=== PATIENT | male | born 1980 | race American Indian/Alaskan Native ===

== ENCOUNTER 2017-08-19 10:22 | Inpatient (IN) | payer OTHER ==
[2017-08-19 10:22] VITALS: BMI 30.2
--- NOTE | 2017-08-19 10:52 | C.PDOC ---
History Of Present Illness 37 year old male presents to the emergency department status-post leaving against medical advice from [facility] on 08-13-17 with complaints of persistent nausea, vomiting, and shortness of breath. Patient states his vomiting is independent of eating, and experienced his last episode three days ago, but is still currently experiencing nausea. Patient states his shortness of breath feels like he "can't take a full breath in", and that it has persisted with tightness for the past month. He denies chest pain, dyspnea on exertion, or coughing but confirms smoking. Patient reports experiencing RUQ/ Epigastric pain in the past but states it is "better than before". Patient denies fever, diarrhea. Patient was previously advised regarding an outpatient follow-up for a possible gallbladder removal, which he states he has not done yet. CO PERSIST NV, SOB "LIKE I CAN'T TAKE A FULL BREATH IN". S/P AMA FROM [facility] . PS NV INDEPENDENT OF EATING, LAST EPISODE 3 DAYS AGO. CO MILD NAUSEA NOW. PREV W RUQ/EPIG PAIN "BUT THAT'S BETTER THAN BEFORE". NO FEVER, DIARRHEA. PSH NEG. PS HAS NOT SCHEDULED OUTPT FU YET. ALSO CO SOB, TIGHTNESS X 1 MO. NO ASSOC CP, MARISCAL, COUGH. +SMOKING. pmhx of ETOH use disorder, tobacco use disorder CT of abdomen and pelvis showed findings that are suspicious for cholecystitis. Pt's LFT were mildly elevated, MRCP was done which showed cholecytitis but no gallstone or bile duct pathology. HIDA scan (preliminary findings) was negative for cholecystitis. EXAM MILD DIST NONTOXIC HEENT NEG LUNGS CTA B/L NO W/R/R NO RETRACTIONS SPEAKING FULL SENTENCES NO TACHYPNEA CV ABD NEG SKIN WARM DRY REMAINDER NEG Time Seen by Provider: 08/19/17 10:51 Chief Complaint (Nursing): GI Problem History Per: Patient History/Exam Limitations: no limitations Onset/Duration Of Symptoms: Days (6) Current Symptoms Are (Timing): Still Present Reports Recently: Seen In ED ([facility] 08-13-17) Past Medical History Reviewed: Historical Data, Nursing Documentation, Vital Signs Vital Signs: Last Vital Signs Temp 97.6 F 08/19/17 15:52 Pulse 97 H 08/19/17 15:52 Resp 18 08/19/17 17:09 BP 127/99 H 08/19/17 15:52 Pulse Ox 100 08/19/17 17:09 - Medical History PMH: Gall Bladder Disease Denies: Chronic Kidney Disease Surgical History: No Surg Hx Family History: States: No Known Family Hx - Social History Hx Alcohol Use: Yes Hx Substance Use: No Review Of Systems Except As Marked, All Systems Reviewed And Found Negative. Constitutional: Negative for: Fever Cardiovascular: Negative for: Chest Pain, Other (dyspnea on exertion) Respiratory: Positive for: Shortness of Breath, Other (chest tightness). Negative for: Cough Gastrointestinal: Positive for: Nausea, Vomiting. Negative for: Diarrhea Physical Exam - Physical Exam Appears: Non-toxic, In Acute Distress (mild) Skin: Warm, Dry Head: Atraumatic, Normacephalic Eye(s): bilateral: Normal Inspection Ear(s): Bilateral: Normal Oral Mucosa: Moist Tongue: Normal Appearing Throat: Normal, No Erythema, No Exudate Neck: Supple Chest: Symmetrical Cardiovascular: Rhythm Regular Respiratory: Normal Breath Sounds (clear to auscultation bilaterally), No Rales , No Rhonchi, No Wheezing, Other (No retraction, no tachypnea, ) Gastrointestinal/Abdominal: Normal Exam, Soft, No Tenderness, No Guarding, No Rebound Extremity: No Pedal Edema Neurological/Psych: Oriented x3, Normal Speech, Normal Cognition, Other (no focal deficits) ED Course And Treatment - Laboratory Results Result Diagrams: 08/19/17 11:30 08/19/17 11:30 ECG Rhythm: Sinus Tachycardia (104), ST/T Changes (T-wave inversion in 5 and 6.) ECG Interpretation: No Changes From Prior (08-11-17) O2 Sat by Pulse Oximetry: 98 Pulse Ox Interpretation: Normal - Radiology CXR: Interpreted by Nv CXR Interpretation: Yes: No Acute Disease, Other ([facility] CXR UNAVAIL FOR REVIEW) - CT Scan/US US Abdomen Other Rad Studies (CT/US): Read By Radiologist, Radiology Report Reviewed CT/US Interpretation: HISTORY: abd pain. COMPARISON: None. TECHNIQUE: Sonographic evaluation of the right upper quadrant of the abdomen. FINDINGS: LIVER: Measures 16.1 cm in length. Patent portal vein. Portal venous flow: Hepatopetal. Unremarkable echogenicity of the liver parenchyma. No mass. No intrahepatic bile duct dilatation. GALLBLADDER: Gallbladder wall thickening. Maximum thickness 9.3 mm. No pericholecystic fluid identified. No visible gallstones or evidence of sonographic Montana's sign. COMMON BILE DUCT: Measures 3.3 mm. No stones. No dilatation. PANCREAS: Unremarkable as visualized. No mass. No ductal dilatation. RIGHT KIDNEY: Measures 4.1 x 10.8 cm in length. Normal echogenicity. No calculus, mass, or hydronephrosis. AORTA : No aneurysmal dilatation. IVC: Unremarkable. OTHER FINDINGS: None . IMPRESSION: Gallbladder wall thickening. Otherwise unremarkable gallbladder without evidence of acute cholecystitis. Progress Note: Plan: EKG. CMP. Lipase. CBC. D-Dimer. CXR Two Views. Albuterl 2.5mg INH. Zofran Inj 8mg IVP. Nebulizer Treatment. US Abdomen Limited Progress - Re-Evaluation Re-evaluation Note: 08/19/17 11:09 PF 550 08/19/17 14:16 NARD APPEARS COMFORTABLE. VSS. CT REPORT REVIEWED. PENDING BNP. PT ADVISED NEED FOR SENIOR CARE PMD FU, SMOKING CESSATION. 08/19/17 15:05 EXAM UNCH PRIOR. PERSIST SX, NO PRIOR HO CHF. WILL ADMIT D/W DR Padmini SANDOVAL WILL ADMIT. REQUESTING UDS - Data Reviewed Data Reviewed: Lab, Diagnostic imaging, EKG, Old records Medical Decision Making Medical Decision Making: Chart from [facility]: pmhx of ETOH use disorder, tobacco use disorder CT of abdomen and pelvis showed findings that are suspicious for cholecystitis. Pt's LFT were mildly elevated, MRCP was done which showed cholecytitis but no gallstone or bile duct pathology. HIDA scan (preliminary findings) was negative for cholecystitis. Disposition Counseled Patient/Family Regarding: Studies Performed, Diagnosis - Disposition Disposition: HOSPITALIZED Disposition Time: 15:07 Condition: STABLE - POA Present On Arrival: None - Clinical Impression Clinical Impression: New onset of congestive heart failure, Biliary colic - Scribe Statement The provider has reviewed the documentation as recorded by the Scribe (M[facility]) Provider Attestation: All medical record entries made by the Scribe were at my direction and personally dictated by me. I have reviewed the chart and agree that the record accurately reflects my personal performance of the history, physical exam, medical decision making, and the department course for this patient. I have also personally directed, reviewed, and agree with the discharge instructions and disposition. Decision To Admit - Pt Status Changed To: Hospital Disposition Of: Inpatient - Admit Certification Admit to Inpatient:: After my assessment, the patient will require hospitalization for at least two midnights. This is because of the severity of symptoms shown, intensity of services needed, and/or the medical risk in this patient being treated as an outpatient. - InPatient: Physician Admission Certification: I certify that this patient requires 2 or more midnights of care for the following reason:: SEE NOTE - . Bed Request Type: Telemetry Admitting Physician: Akil Sandoval Patient Diagnosis: New onset of congestive heart failure, Biliary colic
[2017-08-19] MEDS ORDERED: Albuterol 0.083% Inhal Sol (2.5 mg/3 mL) UD INH STA (11:04)
[2017-08-19] MEDS ORDERED: Albuterol 0.083% Inhal Sol (2.5 mg/3 mL) UD ONE (11:22)
[2017-08-19 11:48] LABS: BASO # 0.1 K/uL (0.0-0.2); BASO % 0.9 % (0.0-2.0); EOS % 0.5 % (0.0-4.0); HEMOGLOBIN 13.8 g/dL (12.0-18.0); LYMPH # 2.3 K/uL (1.0-4.3); LYMPH % 24.9 % (20.0-40.0); MEAN CELL VOLUME 86.4 fL (80.0-94.0); MEAN CORPUSCULAR HEMOGLOBIN 28.7 pg (27.0-31.0); MEAN CORPUSCULAR HGB CONC 33.2 g/dL (33.0-37.0); MEAN PLATELET VOLUME 8.2 fL (7.2-11.7); MONO # 0.6 K/uL (0.0-0.8); MONO % 6.5 % (0.0-10.0); NEUT # 6.2 K/uL (1.8-7.0); NEUT % 67.2 % (50.0-75.0); NRBC % 0.1 % (0.0-2.0); RBC 4.8 Mil/uL (4.40-5.90); RED CELL DISTRIBUTION WIDTH 14.9 % (11.5-14.5); WHITE BLOOD COUNT 9.2 K/uL (4.8-10.8)
[2017-08-19 11:57] LABS: ALB/GLOB RATIO 1.2 (1.0-2.1); ALBUMIN 3.3 g/dL (3.5-5.0); ALT/SGPT 71 U/L (21-72); AST/SGOT 33 U/L (17-59); BLOOD UREA NITROGEN 13 mg/dL (9-20); CALCIUM 8.8 mg/dl (8.6-10.4); GFR AFRICAN-AMERICAN > 60; GFR NON-AFRICAN AMERICAN > 60; LIPASE 62 U/L (23-300)
--- NOTE | 2017-08-19 13:03 | RAD ---
HISTORY: Abdominal pain. COMPARISON: No prior. TECHNIQUE: Chest PA and lateral FINDINGS: LUNGS: No active pulmonary disease. PLEURA: No significant pleural effusion identified. No pneumothorax apparent. CARDIOVASCULAR: Cardiomegaly, pulmonary vascular plethora. OSSEOUS STRUCTURES: No significant abnormalities. VISUALIZED UPPER ABDOMEN: Normal. No free air identified under the diaphragms. OTHER FINDINGS: None. IMPRESSION: No active pulmonary disease. No visible free air.
--- NOTE | 2017-08-19 13:05 | US ---
HISTORY: abd pain COMPARISON: None. TECHNIQUE: Sonographic evaluation of the right upper quadrant of the abdomen. FINDINGS: LIVER: Measures 16.1 cm in length. Patent portal vein. Portal venous flow: Hepatopetal. Unremarkable echogenicity of the liver parenchyma. No mass. No intrahepatic bile duct dilatation. GALLBLADDER: Gallbladder wall thickening. Maximum thickness 9.3 mm. No pericholecystic fluid identified. No visible gallstones or evidence of sonographic Montana's sign. COMMON BILE DUCT: Measures 3.3 mm. No stones. No dilatation. PANCREAS: Unremarkable as visualized. No mass. No ductal dilatation. RIGHT KIDNEY: Measures 4.1 x 10.8 cm in length. Normal echogenicity. No calculus, mass, or hydronephrosis. AORTA: No aneurysmal dilatation. IVC: Unremarkable. OTHER FINDINGS: None . IMPRESSION: Gallbladder wall thickening. Otherwise unremarkable gallbladder without evidence of acute cholecystitis.
[2017-08-19] MEDS ORDERED: Iodixanol 320 MG/ML 100 ML BOTTLE IV ONE (13:08)
--- NOTE | 2017-08-19 14:08 | CT ---
PROCEDURE: CT Chest with contrast (Pulmonary Angiogram) HISTORY: SOB r/o PE COMPARISON: None available. TECHNIQUE: Axial computed tomography images were obtained of the chest in the pulmonary arterial phase of enhancement. Coronal and sagittal reformatted images were created and reviewed. Intravenous contrast dose: 100 mL Visipaque 320 Radiation dose: Total exam DLP = 533.95 mGy-cm. This CT exam was performed using one or more of the following dose reduction techniques: Automated exposure control, adjustment of the mA and/or kV according to patient size, and/or use of iterative reconstruction technique. FINDINGS: PULMONARY ARTERIES: Unremarkable. No pulmonary embolism. AORTA: No acute findings. No thoracic aortic aneurysm. LUNGS: Partial atelectasis of the right lower lobe due to pleural effusion. There is 5 millimeter nodule at the upper portion of the right lung lower lobe. Posterior dependent atelectasis are noted. Focal bronchiectasis noted in the visualized portion of the right lung lower lobe. Mild pulmonary vascular congestion. PLEURAL SPACES: There is moderate size right pleural effusion. There is a small left pleural effusion. HEART: The heart is mildly enlarged. LYMPH NODES: Mildly enlarged mediastinal lymph nodes are noted. BONES, CHEST WALL: Unremarkable. No fracture or destructive lesion OTHER FINDINGS: The scan through the upper abdomen demonstrate pericholecystic fluid. Otherwise no evidence of acute pathology. IMPRESSION: No evidence of pulmonary embolus. Moderate right and small left pleural effusions. Cardiomegaly. 5 millimeter noncalcified nodule at the right lung lower lobe. [id number] pulmonary vascular congestion. Pericholecystic fluid noted incidentally.
--- NOTE | 2017-08-19 15:44 | CP.PCM.HP ---
<Anne-Marie Saunders - Last Filed: 08/19/17 19:27> History of Present Illness - History of Present Illness History of Present Illness: H&P for Dr Sandoval's service: CC: Shortness of breath x 1 month HPI: Patient is a 37 year old male, with PMHx of ETOH abuse, smoker, with recent admission (left AMA) at [facility] presents for shortness of breath. He states this has progressed over the last month so that now he can't even walk a block without having to stop and rest. The patient states he is barely able to sleep and is not able to lie flat or he will become short of breath. He states he feels like he is wheezing and has chest tightness for this past month. He denies leg edema. Patient denies fever/chills, headache, changes in vision, palpitations, diaphoresis. Patient does admit to on and off RUQ pain which causes him to vomit when it starts. Per EMR notes at [place] - MRCP was done which showed cholecytitis but no gallstone or bile duct pathology. HIDA scan ( preliminary findings) was negative for cholecystitis. Patient was to follow up outpatient for cholecystectomy but did not follow up. PMH: Tobacco abuse disorder, ETOH abuse disorder, Cholelithiasis, heart murmur PSHx: None Allergies: NKDA Meds: None FHx: Father (, [place] - age 47), mother alive with HTN, has 4 children no medical problems SHX: Smoker for 22 years (started at age 15) x 1 PPD. Cutting down to 5 cigarettes/day recently last time he smoked was 2 weeks ago; ETOH (drinks 3-4 beers 2 x a week and usually washes it down with 2 shots of vodka, per past EMR was drinking daily, marijuana use when was a teen. 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 absent: Pedal Edema, Syncope - Respiratory Respiratory: Dyspnea, Dyspnea on Exertion. absent: Cough - Gastrointestinal Gastrointestinal: absent: Abdominal Pain, Constipation, Diarrhea, Nausea, Vomiting - Genitourinary Genitourinary: absent: Change in Urinary Stream, Difficulty Urinating - Neurological Neurological: absent: Headaches, Tingling, Weakness Past Patient History - Past Medical History & Family History Past Medical History?: No - Past Social History Smoking Status: Heavy Smoker > 10 Cigarettes Daily - CARDIAC Hx Cardiac Disorders: No - PULMONARY Hx Respiratory Disorders: No - NEUROLOGICAL Hx Neurological Disorder: No - HEENT Hx HEENT Problems: No - RENAL Hx Chronic Kidney Disease: No - ENDOCRINE/METABOLIC Hx Endocrine Disorders: No - HEMATOLOGICAL/ONCOLOGICAL Hx Blood Disorders: No - INTEGUMENTARY Hx Dermatological Problems: No - MUSCULOSKELETAL/RHEUMATOLOGICAL Hx Musculoskeletal Disorders: No - GASTROINTESTINAL Hx Gall Bladder Disease: Yes - GENITOURINARY/GYNECOLOGICAL Hx Genitourinary Disorders: No - PSYCHIATRIC Hx Substance Use: No - SURGICAL HISTORY Hx Surgeries: No - ANESTHESIA Hx Anesthesia: No Meds Allergies/Adverse Reactions: Allergies Allergy/AdvReac Type Severity Reaction Status Date / Time No Known Allergies Allergy Verified 03/12/16 08:14 Physical Exam - Constitutional Appears: Non-toxic, No Acute Distress - Head Exam Head Exam: ATRAUMATIC, NORMAL INSPECTION - Eye Exam Eye Exam: EOMI, PERRL Pupil Exam: NORMAL ACCOMODATION - ENT Exam ENT Exam: Mucous Membranes Moist - Neck Exam Additional comments: no JVD - Respiratory Exam Respiratory Exam: Rales, NORMAL BREATHING PATTERN. absent: Accessory Muscle Use , Respiratory Distress Additional comments: b/l at bases more on R side - Cardiovascular Exam Cardiovascular Exam: REGULAR RHYTHM, +S1, +S2 Additional comments: split S2 - GI/Abdominal Exam GI & Abdominal Exam: Normal Bowel Sounds, Soft. absent: Distended, Firm, Guarding, Tenderness - Rectal Exam Rectal Exam: absent: Bloody Stool, Hemorrhoids Additional comments: normal tone. mild erythema to anal region. no masses or lesions. - Extremities Exam Extremities exam: Positive for: normal inspection. Negative for: calf tenderness, pedal edema - Back Exam Back exam: NORMAL INSPECTION. absent: CVA tenderness (L), CVA tenderness (R), paraspinal tenderness - Neurological Exam Neurological exam: Alert, CN II-XII Intact, Normal Gait, Oriented x3 Additional comments: All muscle groups 5/5 - Psychiatric Exam Psychiatric exam: Normal Affect, Normal Mood - Skin Skin Exam: Dry, Intact, Normal Color, Warm Results - Vital Signs Recent Vital Signs: Last Vital Signs Temp 98.5 F 08/19/17 15:00 Pulse 101 H 08/19/17 15:00 Resp 20 08/19/17 15:00 BP 127/84 08/19/17 15:00 Pulse Ox 98 08/19/17 15:08 - Labs Result Diagrams: 08/19/17 11:30 08/19/17 11:30 Labs: Laboratory Results - last 24 hr 08/19/17 08/19/17 08/19/17 11:30 11:30 11:30 WBC 9.2 RBC 4.80 Hgb 13.8 Hct 41.5 MCV 86.4 MCH 28.7 MCHC 33.2 RDW 14.9 H Plt Count 292 MPV 8.2 Neut % (Auto) 67.2 Lymph % (Auto) 24.9 Grady % (Auto) 6.5 Eos % (Auto) 0.5 Baso % (Auto) 0.9 Neut # (Auto) 6.2 Lymph # (Auto) 2.3 Grady # (Auto) 0.6 Eos # (Auto) 0.0 Baso # (Auto) 0.1 D-Dimer, Quantitative 275 H Sodium 139 Potassium 3.8 Chloride 109 H Carbon Dioxide 22 Anion Gap 13 BUN 13 Creatinine 1.0 Est GFR ( Amer) > 60 Est GFR (Non-Af Amer) > 60 Random Glucose 98 Calcium 8.8 Total Bilirubin 0.6 AST 33 ALT 71 Alkaline Phosphatase 46 NT-Pro-B Natriuret Pep Total Protein 6.0 L Albumin 3.3 L Globulin 2.7 Albumin/Globulin Ratio 1.2 Lipase 62 08/19/17 14:16 WBC RBC Hgb Hct MCV MCH MCHC RDW Plt Count MPV Neut % (Auto) Lymph % (Auto) Grady % (Auto) Eos % (Auto) Baso % (Auto) Neut # (Auto) Lymph # (Auto) Grady # (Auto) Eos # (Auto) Baso # (Auto) D-Dimer, Quantitative Sodium Potassium Chloride Carbon Dioxide Anion Gap BUN Creatinine Est GFR ( Amer) Est GFR (Non-Af Amer) Random Glucose Calcium Total Bilirubin AST ALT Alkaline Phosphatase NT-Pro-B Natriuret Pep 3120 H Total Protein Albumin Globulin Albumin/Globulin Ratio Lipase Assessment & Plan - Assessment and Plan (Free Text) Plan: CHF exacerbation, new onset, unsure if with or without preserved EEF Admit to tele Troponin negative x 1; f/u 2 repeat 6qh with EKG EKG: Left axis deviation, NSR at 100 bpm, with mild T wave inversions BNP 3120 Cardiology consulted, Dr Espinal - help appreciated f/u echo Lasix 20mg IV BID Lisionpril 10mg PO daily Will start BBlock after acute exacerbation Strict Input and Output, daily weights, head of bed to 45 degrees f/u TSH, T4, Lipid panel, HbA1c, am labs Elevated Ddimer only slightly elevated could be secondary to HF Chest CT negative for PE Hx Biliary Colic No murphys on exam, hx gallstones LFTS normal Pt to follow up with [facility] for outpatient elective cholecystectomy Diarrhea/anal irritation f/u stool studies patient to dab rectal area with wet toilet paper and let dry, do not rub the area 5mm RLL nodule risk factors: current smoker will need repeat Chest CT in 3-6 months to follow up for changes, to be done outpatient Nicotine use Nicoderm patch 14mg Q24 hours Alchohol use f/u blood alcohol level Folic acid, multivitamin, thiamine PO daily Ativan 2mg IV Q6 hour prn agitation/withdrawal Prophylactic Measures SCDS (risk factor 1) No GI indicated Heart healthy, 2gram sodium diet <Akil Sandoval - Last Filed: 08/19/17 21:48> Results - Vital Signs Recent Vital Signs: Last Vital Signs Temp 97.6 F 08/19/17 15:52 Pulse 97 H 08/19/17 15:52 Resp 18 08/19/17 17:09 BP 127/99 H 08/19/17 15:52 Pulse Ox 98 08/19/17 18:47 - Labs Result Diagrams: 08/19/17 11:30 08/19/17 11:30 Labs: Laboratory Results - last 24 hr 08/19/17 08/19/17 08/19/17 11:30 11:30 11:30 WBC 9.2 RBC 4.80 Hgb 13.8 Hct 41.5 MCV 86.4 MCH 28.7 MCHC 33.2 RDW 14.9 H Plt Count 292 MPV 8.2 Neut % (Auto) 67.2 Lymph % (Auto) 24.9 Grady % (Auto) 6.5 Eos % (Auto) 0.5 Baso % (Auto) 0.9 Neut # (Auto) 6.2 Lymph # (Auto) 2.3 Grady # (Auto) 0.6 Eos # (Auto) 0.0 Baso # (Auto) 0.1 D-Dimer, Quantitative 275 H Sodium 139 Potassium 3.8 Chloride 109 H Carbon Dioxide 22 Anion Gap 13 BUN 13 Creatinine 1.0 Est GFR ( Amer) > 60 Est GFR (Non-Af Amer) > 60 Random Glucose 98 Calcium 8.8 Total Bilirubin 0.6 AST 33 ALT 71 Alkaline Phosphatase 46 Troponin I NT-Pro-B Natriuret Pep Total Protein 6.0 L Albumin 3.3 L Globulin 2.7 Albumin/Globulin Ratio 1.2 Lipase 62 Urine Opiates Screen Urine Methadone Screen Ur Barbiturates Screen Ur Phencyclidine Scrn Ur Amphetamines Screen U Benzodiazepines Scrn U Oth Cocaine Metabols U Cannabinoids Screen Alcohol, Quantitative 08/19/17 08/19/17 08/19/17 14:16 16:46 16:46 WBC RBC Hgb Hct MCV MCH MCHC RDW Plt Count MPV Neut % (Auto) Lymph % (Auto) Grady % (Auto) Eos % (Auto) Baso % (Auto) Neut # (Auto) Lymph # (Auto) Grady # (Auto) Eos # (Auto) Baso # (Auto) D-Dimer, Quantitative Sodium Potassium Chloride Carbon Dioxide Anion Gap BUN Creatinine Est GFR ( Amer) Est GFR (Non-Af Amer) Random Glucose Calcium Total Bilirubin AST ALT Alkaline Phosphatase Troponin I 0.1060 NT-Pro-B Natriuret Pep 3120 H Total Protein Albumin Globulin Albumin/Globulin Ratio Lipase Urine Opiates Screen Negative Urine Methadone Screen Negative Ur Barbiturates Screen Negative Ur Phencyclidine Scrn Negative Ur Amphetamines Screen Negative U Benzodiazepines Scrn Negative U Oth Cocaine Metabols Negative U Cannabinoids Screen Negative Alcohol, Quantitative < 10 Attending/Attestation - Attestation I have personally seen and examined this patient.: Yes I have fully participated in the care of the patient.: Yes I have reviewed all pertinent clinical information: Yes Notes (Text): 08/19/17 21:47 Patient was seen and examined shortly after resident. History, Physical, Exam, Assessment and Plan were gone over with the resident. Akil Sandoval D.O.
[2017-08-19 17:07] LABS: BARBITURATES, UR NEGATIVE (NEGATIVE); BENZODIAZEPINES, UR NEGATIVE (NEGATIVE); OPIATES, UR NEGATIVE (NEGATIVE); PHENCYCLIDINE, UR NEGATIVE (NEGATIVE)
[2017-08-20 06:28] LABS: BASO # 0.1 K/uL (0.0-0.2); BASO % 0.9 % (0.0-2.0); EOS # 0.1 K/uL (0.0-0.7); EOS % 0.6 % (0.0-4.0); HEMOGLOBIN 14.2 g/dL (12.0-18.0); LYMPH # 2.3 K/uL (1.0-4.3); LYMPH % 27.5 % (20.0-40.0); MEAN CELL VOLUME 86.1 fL (80.0-94.0); MEAN CORPUSCULAR HEMOGLOBIN 28.6 pg (27.0-31.0); MEAN CORPUSCULAR HGB CONC 33.2 g/dL (33.0-37.0); MEAN PLATELET VOLUME 8.8 fL (7.2-11.7); MONO # 0.6 K/uL (0.0-0.8); MONO % 7.1 % (0.0-10.0); NEUT # 5.4 K/uL (1.8-7.0); NEUT % 63.9 % (50.0-75.0); RBC 4.97 Mil/uL (4.40-5.90); RED CELL DISTRIBUTION WIDTH 14.8 % (11.5-14.5); WHITE BLOOD COUNT 8.5 K/uL (4.8-10.8)
[2017-08-20 06:44] LABS: ALB/GLOB RATIO 1.3 (1.0-2.1); ALBUMIN 3.6 g/dL (3.5-5.0); ALT/SGPT 56 U/L (21-72); AST/SGOT 27 U/L (17-59); BLOOD UREA NITROGEN 14 mg/dL (9-20); GFR AFRICAN-AMERICAN > 60; GFR NON-AFRICAN AMERICAN > 60; HDL CHOLESTEROL 29 mg/dL (30-70)
[2017-08-20 06:52] LABS: CK-MB 1.22 ng/mL (0.0-3.38)
[2017-08-20 06:53] LABS: LDL CHOLESTEROL 143 mg/dL (0-129)
[2017-08-20] MEDS ORDERED: Hydrocortisone 2.5% Rectal Cream(30 gm) PR PRN (09:59)
[2017-08-20] MEDS: Multiple Vitamins Tab PO SCH (10:12)
--- NOTE | 2017-08-20 12:00 | CARD ---
APPROVED REPORT EKG Measurement Heart [id number] <Conclusion> Normal sinus rhythm Right atrial enlargement T wave abnormality, consider inferolateral ischemia Prolonged QT Abnormal ECG
--- NOTE | 2017-08-20 12:08 | CARD ---
APPROVED REPORT EKG Measurement Heart [id number] MI [id number] <Conclusion> Sinus tachycardia Left atrial enlargement Nonspecific T wave abnormality Abnormal ECG
--- NOTE | 2017-08-20 12:23 | CARD ---
APPROVED REPORT EXAM: Two-dimensional and M-mode echocardiogram with Doppler and color Doppler. Other Information Quality : GoodRhythm : INDICATION Congestive Heart Failure RISK FACTORS Hypertension 2D DIMENSIONS IVSd1.3 (0.7-1.1cm)LVDd6.1 (3.9-5.9cm) PWd1.0 (0.7-1.1cm)LVDs5.9 (2.5-4.0cm) FS (%) 4.3 %LVEF (%)9.5 (>50%) M-Mode DIMENSIONS Left Atrium (MM)3.75 (2.5-4.0cm)IVSd1.16 (0.7-1.1cm) Aortic Root3.30 (2.2-3.7cm)LVDd6.38 (4.0-5.6cm) Aortic Cusp Exc.2.21 (1.5-2.0cm)PWd1.05 (0.7-1.1cm) FS (%) 6 %LVDs6.01 (2.0-3.8cm) LVEF (%)13 (>50%) Mitral Valve MV E Ltwlqjif19.6cm/sMV A Cbzjxeae97.6cm/sE/A ratio1.9 TDI E/Lateral E'0.0E/Medial E'0.0 Tricuspid Valve TR Peak [id number]/sTR Peak Gr.[id number] LEFT VENTRICLE The Left Ventricle is moderately dilated. There is normal left ventricular wall thickness. Left ventricle systolic function is severely impaired. The Ejection Fraction is <15%. There is global hypokinesis of the left ventricle. Transmitral Doppler flow pattern is Grade II-pseudonormal filling dynamics. No left ventricle thrombus noted on this study. LV filling pressure is elevated There is no ventricular septal defect visualized. There is no left ventricular aneurysm. There is no mass noted in the left ventricle. RIGHT VENTRICLE The right ventricle is normal size. There is normal right ventricular wall thickness. The right ventricular systolic function is normal. ATRIA The left atrium size and volume is moderately dilated. The right atrium size is normal. The interatrial septum is intact with no evidence for an atrial septal defect. AORTIC VALVE The aortic valve is normal in structure and function. No aortic regurgitation is present. There is no aortic valvular stenosis. There is no aortic valvular vegetation. MITRAL VALVE The mitral valve is normal in structure and function. There is no evidence of mitral valve prolapse. There is no mitral valve stenosis. Mitral regurgitation is mild. TRICUSPID VALVE The tricuspid valve is normal in structure and function. There is mild to moderate tricuspid regurgitation. Right ventricular systolic pressure is estimated at 40-50 mmHg. There is no tricuspid valve prolapse or vegetation. There is no tricuspid valve stenosis. PULMONIC VALVE The pulmonary valve is normal in structure and function. There is no pulmonic valvular regurgitation. There is no pulmonic valvular stenosis. GREAT VESSELS The aortic root is normal in size. The ascending aorta is normal in size. The pulmonary artery is normal. The IVC is normal in size and collapses >50% with inspiration. PERICARDIAL EFFUSION The pericardium appears normal. There is no pleural effusion. <Conclusion> The Left Ventricle is moderately dilated. The left ventricular diastolic function is normal. No left ventricle thrombus noted on this study. LV filling pressure is elevated The left atrium size and volume is moderately dilated. Mitral regurgitation is mild. There is mild to moderate tricuspid regurgitation. Right ventricular systolic pressure is estimated at 40-50 mmHg.
--- NOTE | 2017-08-20 18:04 | CP.PCM.PN ---
<Lorena Gallegos - Last Filed: 08/20/17 17:53> Subjective - Date & Time of Evaluation Date of Evaluation: 08/20/17 Time of Evaluation: 09:00 - Subjective Subjective: Medicine Note for Hospitalist Service- Dr. Arreguin Patient was seen and examined at bedside. Patient reports his breathing has improved, but he continues to feel short of breath when he lays down flat. Denied fever, chills, headaches, chest pain, shortness of breath, abdominal pain , n/v/d/c, or urinary symptoms. Objective - Vital Signs/Intake and Output Vital Signs (last 24 hours): Temp Pulse Resp BP Pulse Ox 98.2 F 83 20 100/70 96 08/20/17 15:51 08/20/17 15:51 08/20/17 15:51 08/20/17 17:36 08/20/17 15:51 Intake and Output: 08/20/17 08/20/17 06:59 18:59 Intake Total 360 350 Output Total 850 Balance -490 350 - Medications Medications: Current Medications Aspirin (Aspirin Chewable) 81 mg PO DAILY [facility] Last Admin: 08/20/17 16:00 Dose: 81 mg Folic Acid (Folic Acid) 1 mg PO DAILY [facility] Last Admin: 08/20/17 10:12 Dose: 1 mg Furosemide (Lasix) 20 mg IVP BID [facility] Last Admin: 08/20/17 17:36 Dose: Not Given Hydrocortisone (Anusol-Hc) 1 gm NC BID PRN PRN Reason: Inflammation Lisinopril (Zestril) 20 mg PO DAILY [facility] Last Admin: 08/20/17 10:12 Dose: 20 mg Multivitamins (Hexavitamin) 1 tab PO DAILY [facility] Last Admin: 08/20/17 10:12 Dose: 1 tab Nicotine (Nicoderm Cq) 1 patch TD DAILY [facility] Last Admin: 08/20/17 10:12 Dose: 1 patch Rosuvastatin Calcium (Crestor) 5 mg PO [facility] Thiamine HCl (Vitamin B1 Tab) 100 mg PO DAILY [facility] Last Admin: 08/20/17 10:12 Dose: 100 mg - Labs Labs: 08/20/17 06:20 08/20/17 06:20 - Additional Findings Additional findings: - Constitutional Appears: Non-toxic, No Acute Distress - Head Exam Head Exam: ATRAUMATIC, NORMAL INSPECTION - Eye Exam Eye Exam: EOMI, PERRL Pupil Exam: NORMAL ACCOMODATION - ENT Exam ENT Exam: Mucous Membranes Moist - Neck Exam Additional comments: no JVD - Respiratory Exam Respiratory Exam: NORMAL BREATHING PATTERN. absent: Accessory Muscle Use, Respiratory Distress, rhonci, rales Additional comments: - Cardiovascular Exam Cardiovascular Exam: REGULAR RHYTHM, +S1, +S2 Additional comments: split S2 - GI/Abdominal Exam GI & Abdominal Exam: Normal Bowel Sounds, Soft. absent: Distended, Firm, Guarding, Tenderness - Rectal Exam Rectal Exam: Deferred Additional comments: - Extremities Exam Extremities exam: Positive for: normal inspection. Negative for: calf tenderness, pedal edema - Back Exam Back exam: NORMAL INSPECTION. 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 - Cardiology consulted, Dr Espinal - patient is for [facility] - pending medical optimization to determine if AICD is necessary - Troponin negative x 3 - EKG: Left axis deviation, NSR at 100 bpm, with mild T wave inversions - BNP 3120 - D- Dimer - elevated, CTA negative for PE - ECHO: LVEF 15-20%, LV systolic dysfunction severely impaired, global hypokinesis Management: - ASA 81, Crestor 5mg QHS - Lasix 20mg IV BID - Lisinopril 20mg PO daily - Will start BBlock after acute exacerbation - Strict Input and Output, daily weights, head of bed to 45 degrees - TSH, T4, HbA1c - WNL - Lipid panel - low HDL - will need OTC Melissa 3 and fish oil Alcohol use - Folic acid, multivitamin, thiamine PO daily - Ativan 2mg IV Q6 hour prn agitation/withdrawal - blood alcohol level < 10 Nicotine use - Nicoderm patch 14mg Q24 hours 5mm RLL nodule - risk factors: current smoker - will need repeat Chest CT in 3-6 months to follow up for changes, to be done outpatient Hx Biliary Colic - No murphys on exam, hx gallstones - LFTS normal - Pt to follow up with [facility] for outpatient elective cholecystectomy Diarrhea/anal irritation - patient to dab rectal area with wet toilet paper and let dry, do not rub the area - f/u stool studies Prophylactic Measures - SCDS (risk factor 1) - No GI indicated - Heart healthy, 2gram sodium diet Disposition: Pending [facility] arrival as patient as LVEF 15-20%. DW Dr. Dr. Arreguin, Lorena Gallegos DO, PGY-1 <Amy Arreguin V - Last Filed: 08/21/17 07:23> Objective - Vital Signs/Intake and Output Vital Signs (last 24 hours): Temp Pulse Resp BP Pulse Ox 97.7 F 92 H 20 120/89 98 08/20/17 23:00 08/20/17 23:00 08/20/17 23:00 08/20/17 23:00 08/20/17 23:00 Intake and Output: 08/21/17 08/21/17 06:59 18:59 Intake Total 240 Balance 240 - Medications Medications: Current Medications Aspirin (Aspirin Chewable) 81 mg PO DAILY [facility] Last Admin: 08/20/17 16:00 Dose: 81 mg Folic Acid (Folic Acid) 1 mg PO DAILY [facility] Last Admin: 08/20/17 10:12 Dose: 1 mg Furosemide (Lasix) 20 mg IVP BID [facility] Last Admin: 08/20/17 17:36 Dose: Not Given Hydrocortisone (Anusol-Hc) 1 gm NC BID PRN PRN Reason: Inflammation Lisinopril (Zestril) 20 mg PO DAILY [facility] Last Admin: 08/20/17 10:12 Dose: 20 mg Multivitamins (Hexavitamin) 1 tab PO DAILY [facility] Last Admin: 08/20/17 10:12 Dose: 1 tab Nicotine (Nicoderm Cq) 1 patch TD DAILY [facility] Last Admin: 08/20/17 10:12 Dose: 1 patch Rosuvastatin Calcium (Crestor) 5 mg PO HS [facility] Last Admin: 08/20/17 22:02 Dose: 5 mg Thiamine HCl (Vitamin B1 Tab) 100 mg PO DAILY [facility] Last Admin: 08/20/17 10:12 Dose: 100 mg - Labs Labs: 08/21/17 06:26 08/21/17 06:26 Attending/Attestation - Attestation I have personally seen and examined this patient.: Yes I have fully participated in the care of the patient.: Yes I have reviewed all pertinent clinical information, including history, physical exam and plan: Yes Notes (Text): This is late computer entry for 08/20/17. Patient seen, examined and case discussed with medical i d sales, cardiology, and patient with mother present at bedside. Patient with family hx of ME (father) comes in following 1 month history of dyspnea on exertion. Patient's echocardiogram reveals he had dilated cardiomyopathy with severe ejection fraction 15%. At this time, cardiology is not recommending for stress test given severe ejection fraction. Per our discussion, patient does not have decompensated CHF, recommends to start low dose diuretic, beta samir, aspirin and statin and see with medical optimization to allow the Ejection fraction to improve. He is also recommending for [facility] for the patient. [employer]oll paper work completed and in the chart. We had a long collective discussion with the patient with cardiology, we urged him to be compliant with medications, his lifevest, and patient is willing to do it following our conversation. Patient understands he is at risk for ME or life threatening arrhthymia. Patient is concerned about his job; however I also reminded him his health is as important as his job. We also had quite discussion about alcohol cessation; smoking cessation. Patient at this time does not have abdominal pain, but recommended for outpatient elective kulwinder. patient will likely need cardiology clearance prior to that surgery, Assessment/Plan 1) New onset, combined Diastolic and Systolic CHF Exacerbation, LVEF <15-20% Dilated Cardiomyopathy * Cardiology consulted, Dr Espinal - patient is for [facility] - pending medical optimization to determine if AICD is necessary * Troponin negative x 3 * EKG: Left axis deviation, NSR at 100 bpm, with mild T wave inversions * BNP 3120 * D- Dimer - elevated, CTA negative for PE * ECHO: LVEF 15-20%, LV systolic dysfunction severely impaired, global hypokinesis Management: * ASA 81 mg PO daily, Crestor 5mg QHS * Lasix 20mg IV BID * Lisinopril 20mg PO daily * Start low dose Coreg 3.125mg PO bid (hold SBP<100 and HR<60) * Strict Input and Output, daily weights, head of bed to 45 degrees * TSH, T4, HbA1c - WNL * Lipid panel - low HDL - will need OTC Melissa 3 and fish oil 2) Alcohol use * Folic acid, multivitamin, thiamine PO daily * Ativan 2mg IV Q6 hour prn agitation/withdrawal * blood alcohol level < 10 3) Nicotine use * Nicoderm patch 14mg Q24 hours * Smoking cessation provided 4) 5 mm RLL nodule * risk factors: current smoker * will need repeat Chest CT in 3-6 months to follow up for changes, to be done outpatient 5) Hx Biliary Colic * No murphys on exam, hx gallstones * LFTS normal * Pt to follow up with [facility] for outpatient elective cholecystectomy and will need cardiac clearance prior to surgery in light of cardiomyopathy 6) Diarrhea/anal irritation * patient to dab rectal area with wet toilet paper and let dry, do not rub the area * f/u stool studies 7) Prophylactic Measures * SCDS (risk factor 1) * No GI indicated * Heart healthy, 2gram sodium diet Disposition: Pending [facility] arrival as patient as LVEF 15-20%.
--- NOTE | 2017-08-21 05:56 | CON ---
DATE: 08/20/2017 CARDIOLOGY CONSULT Requested by the hospitalist group. LOCATION: In [address] [place] [address], room 650 bed A. REASON FOR REQUEST: Requested to see this 37 years old black male due to systolic and diastolic heart failure. HISTORY OF PRESENT ILLNESS: This gentleman came to the emergency room due to increasing shortness of breath for about a month or so. He was immediately evaluated in the emergency room. He was treated and advised admission for further evaluation and treatment. Since arrival here, he has had multiple investigations highlighted by electrocardiogram showing sinus rhythm, left ventricular type of pattern, LVH pattern and biatrial enlargement. A chest x-ray with cardiomegaly and some pulmonary congestion; however, no pleural effusion; but most important an echocardiogram showing a severe left ventricular systolic as well as diastolic dysfunction. Mild pulmonary hypertension but no evidence of any regional wall motion abnormalities. This appeared to be just a dilated type of cardiomyopathy with some underlying hypertension. This nice gentleman actually drinks a significant amount of alcohol in the form of beer. He claims he only drinks about 6 beers a day or so, would presume a lot more. Mother was at the bedside when I came to see him and she admitted that he probably drinks a lot more, but takes no or does any illicit drugs. He just smokes regular cigarettes. He denies any known allergies and this is the first hospitalization although he goes to a clinic, he mentioned a clinic in [place], he was there about a week ago, I asked him if at anytime he has had any hypertension, he categorically told me that no and he gets checked twice a year, at least what he told me. REVIEW OF SYSTEMS: From the cardiological view point, as mentioned above, there is exertional dyspnea [place] Class III at least. Denying any chest discomfort, palpitation or syncope in any given time and no evidence of edema in the past either. Rest of the review of systems otherwise negative. PHYSICAL EXAMINATION: GENERAL: Reveals an adult black male, very pleasant although I have to wake him up several times, the mother at the bedside and finally he began to cooperate very well, in no distress whatsoever. VITAL SIGNS: On arrival has being relatively well compensated, he is afebrile, blood pressure about 122/93, the lowest one around 92/62 when he was sleeping, heart rate in the 80s and sinus, on arrival here was about 95 or so. SKIN: There is no edema that I can see anywhere. NECK : Jugular veins are nondistended and even below 30 degrees. Carotids with normal upstroke without bruit. LUNG: Cobian clear during my exam. CARDIOLOGIC: The precordium is unremarkable, no thrills on auscultation. The PMI appears to be slightly displaced but nothing spectacular. Heart sounds are normal in intensity and regular with minimal systolic murmur on the left sternal border. ABDOMEN: Unremarkable. No localized tenderness. CUSTOMER STRATEGY MANAGER: Unremarkable. LABORATORY DATA: Complementary data in addition to what I mentioned above from the cardiological view point, CBCs normal. Comprehensive metabolic profile is also normal. Serial troponins unremarkable, proBNP mildly elevated about 3100. Urine for toxicology all negative except alcohol. Thyroid is also normal. ASSESSMENT: In essence, an adult that has been drinking excessive amount of alcohol for many years has come in with evidence of severe systolic and diastolic dysfunction. PLAN: The case was extensively discussed with Dr. Arreguin and her resident and earlier in the day when I reviewed the echo after I spoke with Anne-Marie, the resident taking care of him, I called the field marketing representative from [facility] and he came immediately and we are proceeding with that in the interim. Dr. Arreguin had an extensive conversation with the patient and mother and he appears to agree at this point in time, although earlier this morning, he was reluctant to follow any of the plans for his medical care, but now he agrees to proceed with diet and above all, refrain from any alcohol as well as tobacco use. He has been already started on DONNA inhibitor, diuretics, intravenous furosemide and we are proceeding with adding beta blockers with carvedilol as well as spironolactone. Monty Espinal MD
[2017-08-21 06:30] LABS: BASO # 0.1 K/uL (0.0-0.2); BASO % 0.6 % (0.0-2.0); EOS # 0.1 K/uL (0.0-0.7); EOS % 0.7 % (0.0-4.0); HEMOGLOBIN 13.9 g/dL (12.0-18.0); LYMPH # 2.1 K/uL (1.0-4.3); LYMPH % 24.3 % (20.0-40.0); MEAN CELL VOLUME 86.2 fL (80.0-94.0); MEAN CORPUSCULAR HEMOGLOBIN 28.2 pg (27.0-31.0); MEAN CORPUSCULAR HGB CONC 32.7 g/dL (33.0-37.0); MEAN PLATELET VOLUME 8.5 fL (7.2-11.7); MONO # 0.5 K/uL (0.0-0.8); MONO % 6.3 % (0.0-10.0); NEUT # 5.8 K/uL (1.8-7.0); NEUT % 68.1 % (50.0-75.0); RBC 4.93 Mil/uL (4.40-5.90); RED CELL DISTRIBUTION WIDTH 14.5 % (11.5-14.5); WHITE BLOOD COUNT 8.6 K/uL (4.8-10.8)
[2017-08-21 06:51] LABS: ALB/GLOB RATIO 1.3 (1.0-2.1); ALBUMIN 3.6 g/dL (3.5-5.0); ALT/SGPT 47 U/L (21-72); AST/SGOT 20 U/L (17-59); BLOOD UREA NITROGEN 15 mg/dL (9-20); CALCIUM 8.9 mg/dl (8.6-10.4); GFR AFRICAN-AMERICAN > 60; GFR NON-AFRICAN AMERICAN > 60
[2017-08-21] MEDS: Multiple Vitamins Tab PO SCH (09:10)
--- NOTE | 2017-08-21 11:11 | CP.PCM.DIS ---
<KeenanLorena santo - Last Filed: 08/21/17 12:59> Provider - Provider Date of Admission: 08/19/17 15:08 Attending physician: Amy Arreguin DO Consults: Dr. Monty Espinal Time Spent in preparation of Discharge (in minutes): 55 Hospital Course - Lab Results Lab Results: Most Recent Lab Values WBC 8.6 K/uL (4.8-10.8) 08/21/17 06:26 RBC 4.93 Mil/uL (4.40-5.90) 08/21/17 06:26 Hgb 13.9 g/dL (12.0-18.0) 08/21/17 06:26 Hct 42.5 % (35.0-51.0) 08/21/17 06:26 MCV 86.2 fL (80.0-94.0) 08/21/17 06:26 MCH 28.2 pg (27.0-31.0) 08/21/17 06:26 MCHC 32.7 g/dL (33.0-37.0) L 08/21/17 06:26 RDW 14.5 % (11.5-14.5) 08/21/17 06:26 Plt Count 301 K/uL (130-400) 08/21/17 06:26 MPV 8.5 fL (7.2-11.7) 08/21/17 06:26 Neut % (Auto) 68.1 % (50.0-75.0) 08/21/17 06:26 Lymph % (Auto) 24.3 % (20.0-40.0) 08/21/17 06:26 [place] % (Auto) 6.3 % (0.0-10.0) 08/21/17 06:26 Eos % (Auto) 0.7 % (0.0-4.0) 08/21/17 06:26 Baso % (Auto) 0.6 % (0.0-2.0) 08/21/17 06:26 Neut # (Auto) 5.8 K/uL (1.8-7.0) 08/21/17 06:26 Lymph # (Auto) 2.1 K/uL (1.0-4.3) 08/21/17 06:26 [place] # (Auto) 0.5 K/uL (0.0-0.8) 08/21/17 06:26 Eos # (Auto) 0.1 K/uL (0.0-0.7) 08/21/17 06:26 Baso # (Auto) 0.1 K/uL (0.0-0.2) 08/21/17 06:26 D-Dimer, Quantitative 275 ng/mlDDU (0-243) H 08/19/17 11:30 Sodium 141 mmol/L (132-148) 08/21/17 06:26 Potassium 3.9 mmol/L (3.6-5.2) 08/21/17 06:26 Chloride 109 mmol/L (98-107) H 08/21/17 06:26 Carbon Dioxide 26 mmol/L (22-30) 08/21/17 06:26 Anion Gap 10 (10-20) 08/21/17 06:26 BUN 15 mg/dL (9-20) 08/21/17 06:26 Creatinine 1.2 mg/dL (0.8-1.5) 08/21/17 06:26 Est GFR ( Amer) > 60 08/21/17 06:26 Est GFR (Non-Af Amer) > 60 08/21/17 06:26 Random Glucose 82 mg/dL (75-110) 08/21/17 06:26 Hemoglobin A1c 5.6 % (4.2-6.5) 08/20/17 06:20 Calcium 8.9 mg/dl (8.6-10.4) 08/21/17 06:26 Phosphorus 3.9 mg/dL (2.5-4.5) 08/21/17 06:26 Magnesium 2.0 mg/dL (1.6-2.3) 08/21/17 06:26 Total Bilirubin 0.7 mg/dL (0.2-1.3) 08/21/17 06:26 AST 20 U/L (17-59) 08/21/17 06:26 ALT 47 U/L (21-72) 08/21/17 06:26 Alkaline Phosphatase 45 U/L (38-126) 08/21/17 06:26 Total Creatine Kinase 92 U/L (55-170) 08/20/17 06:20 CK-MB (Mass) 1.22 ng/mL (0.0-3.38) 08/20/17 06:20 Troponin I 0.0770 ng/mL (0.00-0.120) 08/20/17 06:20 NT-Pro-B Natriuret Pep 3120 pg/mL (0-450) H 08/19/17 14:16 Total Protein 6.4 g/dL (6.3-8.3) 08/21/17 06:26 Albumin 3.6 g/dL (3.5-5.0) 08/21/17 06:26 Globulin 2.7 gm/dL (2.2-3.9) 08/21/17 06:26 Albumin/Globulin Ratio 1.3 (1.0-2.1) 08/21/17 06:26 Triglycerides 103 mg/dL (0-149) 08/20/17 06:20 Cholesterol 182 mg/dL (0-199) 08/20/17 06:20 LDL Cholesterol Direct 143 mg/dL (0-129) H 08/20/17 06:20 HDL Cholesterol 29 mg/dL (30-70) L 08/20/17 06:20 Lipase 62 U/L (23-300) 08/19/17 11:30 Free T4 1.24 ng/dL (0.78-2.19) 08/20/17 06:20 TSH 3rd Generation 0.49 mIU/L (0.46-4.68) 08/20/17 06:20 Urine Opiates Screen Negative (NEGATIVE) 08/19/17 16:46 Urine Methadone Screen Negative (NEGATIVE) 08/19/17 16:46 Ur Barbiturates Screen Negative (NEGATIVE) 08/19/17 16:46 Ur Phencyclidine Scrn Negative (NEGATIVE) 08/19/17 16:46 Ur Amphetamines Screen Negative (NEGATIVE) 08/19/17 16:46 U Benzodiazepines Scrn Negative (NEGATIVE) 08/19/17 16:46 U Oth Cocaine Metabols Negative (NEGATIVE) 08/19/17 16:46 U Cannabinoids Screen Negative (NEGATIVE) 08/19/17 16:46 Alcohol, Quantitative < 10 mg/dl (0-10) 08/19/17 16:46 - Hospital Course Hospital Course: Upon Admission: CC: Shortness of breath x 1 month HPI: Patient is a 37 year old male, with PMHx of ETOH abuse, smoker, with recent admission (left AMA) at [facility] presents for shortness of breath. He states this has progressed over the last month so that now he can't even walk a block without having to stop and rest. The patient states he is barely able to sleep and is not able to lie flat or he will become short of breath. He states he feels like he is wheezing and has chest tightness for this past month. He denies leg edema. Patient denies fever/chills, headache, changes in vision, palpitations, diaphoresis. Patient does admit to on and off RUQ pain which causes him to vomit when it starts. Per EMR notes at [place] - MRCP was done which showed cholecytitis but no gallstone or bile duct pathology. HIDA scan ( preliminary findings) was negative for cholecystitis. Patient was to follow up outpatient for cholecystectomy but did not follow up. PMH: Tobacco abuse disorder, ETOH abuse disorder, Cholelithiasis, heart murmur PSHx: None Allergies: NKDA Meds: None FHx: Father (, [place] - age 47), mother alive with HTN, has 4 children no medical problems SHX: Smoker for 22 years (started at age 15) x 1 PPD. Cutting down to 5 cigarettes/day recently last time he smoked was 2 weeks ago; ETOH (drinks 3-4 beers 2 x a week and usually washes it down with 2 shots of vodka, per past EMR was drinking daily, marijuana use when was a teen. 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 Code status: Full code AD: none Proxy: Mother: Nataliia Love PMD: none Throughout Hospital Admission: New onset, combined Diastolic and Systolic CHF Exacerbation, LVEF <15-20% Dilated Cardiomyopathy Likely 2/2 ETOH Use - Cardiology consulted, Dr Espinal - patient is for [employer] - pending medical optimization to determine if AICD is necessary - Troponin negative x 3 - EKG: Left axis deviation, NSR at 100 bpm, with mild T wave inversions - BNP 3120 - D- Dimer - elevated, CTA negative for PE - ECHO: LVEF 15-20%, LV systolic dysfunction severely impaired, global hypokinesis Management: - ASA 81, Crestor 5mg QHS - Lasix 20mg IV BID - Lisinopril 20mg PO daily - Start low dose Coreg 3.125mg PO bid (hold SBP<100 and HR<60) - Strict Input and Output, daily weights, head of bed to 45 degrees - TSH, T4, HbA1c - WNL - Lipid panel - low HDL - will need OTC Madison 3 and fish oil Alcohol use - Folic acid, multivitamin, thiamine PO daily - Ativan 2mg IV Q6 hour prn agitation/withdrawal - blood alcohol level < 10 Nicotine use - Nicoderm patch 14mg Q24 hours 5mm RLL nodule - risk factors: current smoker - will need repeat Chest CT in 3-6 months to follow up for changes, to be done outpatient Hx Biliary Colic - No murphys on exam, hx gallstones - LFTS normal - Pt to follow up with [facility] for outpatient elective cholecystectomy Please review EMR for full record, as this is a brief summary of the patient's hospital course. Discharge Exam - Additional Findings Additional findings: - Constitutional Appears: Non-toxic, No Acute Distress - Head Exam Head Exam: ATRAUMATIC, NORMAL INSPECTION - Eye Exam Eye Exam: EOMI, PERRL Pupil Exam: NORMAL ACCOMODATION - ENT Exam ENT Exam: Mucous Membranes Moist - Neck Exam Additional comments: no JVD - Respiratory Exam Respiratory Exam: NORMAL BREATHING PATTERN. absent: Accessory Muscle Use, Respiratory Distress, rhonci, rales Additional comments: - Cardiovascular Exam Cardiovascular Exam: REGULAR RHYTHM, +S1, +S2 Additional comments: split S2 - GI/Abdominal Exam GI & Abdominal Exam: Normal Bowel Sounds, Soft. absent: Distended, Firm, Guarding, Tenderness - Rectal Exam Rectal Exam: Deferred Additional comments: - Extremities Exam Extremities exam: Positive for: normal inspection. Negative for: calf tenderness, pedal edema - Back Exam Back exam: NORMAL INSPECTION. absent: CVA tenderness (L), CVA tenderness (R), paraspinal tenderness - Neurological Exam Neurological exam: Alert, CN II-XII Intact, Normal Gait, Oriented x3 Additional comments: All muscle groups 5/5 - Psychiatric Exam Psychiatric exam: Normal Affect, Normal Mood - Skin Skin Exam: Dry, Intact, Normal Color, Warm Discharge Plan - Discharge Medications Prescriptions: Aspirin [Aspirin Chewable] 81 mg PO DAILY #30 chew Carvedilol [Coreg] 3.125 mg PO BID #60 tab Furosemide [Lasix] 20 mg PO DAILY #30 tab Lisinopril [Zestril] 20 mg PO DAILY #30 tab Rosuvastatin Calcium [Crestor] 5 mg PO QPM #30 tab Spironolactone [Aldactone] 25 mg PO DAILY #30 tab - Follow Up Plan Condition: STABLE Disposition: HOME/ ROUTINE Instructions: Heart Failure, Adult, Heart Healthy Diet, Medicines for Heart Failure With Reduced Ejection Fraction, When Your Lungs Fill With Fluid, Aspirin , Atorvastatin, Carvedilol, Lisinopril, Medical Devices for Congestive Heart Failure (CHF), Spironolactone, Heart Failure Exercise Guide, Heart Failure (DC) Additional Instructions: You were diagnosed with Heart Failure with an ejection fraction of about 15-20% (this means your heart is very, very weak). You will need to continue with the medications EVERY DAY and wear the life vest as instructed by the life vest sales representative malt liquors EVERYDAY until you are seen by a revenue analyst and told otherwise. You will need to restrict your diet to NO SALT and less than 1.5 liters of FLUIDS per day to prevent fluid from backing up into your lungs and lower extremities. You will need to exercise and lose weight. You will be taking the following medications EVERYDAY: Aspirin 81mg by mouth daily Lisinopril 20mg by mouth daily Coreg 3.125mg by mouth TWICE a day Crestor 5 mg by mouth at night with dinner Lasix 20mg by mouth daily (this will make you pee a lot but it is to help remove the extra fluid to prevent it from going to your lungs) Aldactone 25mg by mouth daily (this will make you pee a lot but it is to help remove the extra fluid to prevent it from going to your lungs; this medication has been shown to help reduce the number of deaths due to heart failure). Please buy over the counter Madison 3 and fish oil to help raise your good cholesterol (HDL) which is very low right now. Since you do not have a primary care doctor, come to our [facility] in the [facility] - you can establish yourself here and we can follow up with you, give you refills for your medications, and so you can follow up with Dr. Espinal the Construction Accountant who saw you here in the hospital. For work, for the first month or so please do not lift heavy objects or do any work that is too energy consuming. You need to allow some time for the medications to work and allow your heart to get stronger. If your abdominal pain continues to happen, once your heart is in a better condition and you are cleared for surgery, you can arrange for surgery as outpatient. You have a 5mm nodule in the lower part of your right lung. We will need to repeat a cat scan of your chest in 3-6 months to make sure it is not changing in size. Please take care and be well. You can do this; take you medication everyday, wear your lifevest everyday, quit drinking alcohol and smoking, remove salt from your diet and do not drink more than 1.5 liters of liquids / day, exercise and lose weight! Referrals: [facility] [Outside] Monty Espinal MD [Staff Provider] - <Amy Arreguin V - Last Filed: 08/21/17 17:35> Provider - Provider Date of Admission: 08/19/17 15:08 Attending physician: Amy Arreguin, DO Hospital Course - Lab Results Lab Results: Most Recent Lab Values WBC 8.6 K/uL (4.8-10.8) 08/21/17 06:26 RBC 4.93 Mil/uL (4.40-5.90) 08/21/17 06:26 Hgb 13.9 g/dL (12.0-18.0) 08/21/17 06:26 Hct 42.5 % (35.0-51.0) 08/21/17 06:26 MCV 86.2 fL (80.0-94.0) 08/21/17 06:26 MCH 28.2 pg (27.0-31.0) 08/21/17 06:26 MCHC 32.7 g/dL (33.0-37.0) L 08/21/17 06:26 RDW 14.5 % (11.5-14.5) 08/21/17 06:26 Plt Count 301 K/uL (130-400) 08/21/17 06:26 MPV 8.5 fL (7.2-11.7) 08/21/17 06:26 Neut % (Auto) 68.1 % (50.0-75.0) 08/21/17 06:26 Lymph % (Auto) 24.3 % (20.0-40.0) 08/21/17 06:26 [place] % (Auto) 6.3 % (0.0-10.0) 08/21/17 06:26 Eos % (Auto) 0.7 % (0.0-4.0) 08/21/17 06:26 Baso % (Auto) 0.6 % (0.0-2.0) 08/21/17 06:26 Neut # (Auto) 5.8 K/uL (1.8-7.0) 08/21/17 06:26 Lymph # (Auto) 2.1 K/uL (1.0-4.3) 08/21/17 06:26 [place] # (Auto) 0.5 K/uL (0.0-0.8) 08/21/17 06:26 Eos # (Auto) 0.1 K/uL (0.0-0.7) 08/21/17 06:26 Baso # (Auto) 0.1 K/uL (0.0-0.2) 08/21/17 06:26 D-Dimer, Quantitative 275 ng/mlDDU (0-243) H 08/19/17 11:30 Sodium 141 mmol/L (132-148) 08/21/17 06:26 Potassium 3.9 mmol/L (3.6-5.2) 08/21/17 06:26 Chloride 109 mmol/L (98-107) H 08/21/17 06:26 Carbon Dioxide 26 mmol/L (22-30) 08/21/17 06:26 Anion Gap 10 (10-20) 08/21/17 06:26 BUN 15 mg/dL (9-20) 08/21/17 06:26 Creatinine 1.2 mg/dL (0.8-1.5) 08/21/17 06:26 Est GFR ( Amer) > 60 08/21/17 06:26 Est GFR (Non-Af Amer) > 60 08/21/17 06:26 Random Glucose 82 mg/dL (75-110) 08/21/17 06:26 Hemoglobin A1c 5.6 % (4.2-6.5) 08/20/17 06:20 Calcium 8.9 mg/dl (8.6-10.4) 08/21/17 06:26 Phosphorus 3.9 mg/dL (2.5-4.5) 08/21/17 06:26 Magnesium 2.0 mg/dL (1.6-2.3) 08/21/17 06:26 Total Bilirubin 0.7 mg/dL (0.2-1.3) 08/21/17 06:26 AST 20 U/L (17-59) 08/21/17 06:26 ALT 47 U/L (21-72) 08/21/17 06:26 Alkaline Phosphatase 45 U/L (38-126) 08/21/17 06:26 Total Creatine Kinase 92 U/L (55-170) 08/20/17 06:20 CK-MB (Mass) 1.22 ng/mL (0.0-3.38) 08/20/17 06:20 Troponin I 0.0770 ng/mL (0.00-0.120) 08/20/17 06:20 NT-Pro-B Natriuret Pep 3120 pg/mL (0-450) H 08/19/17 14:16 Total Protein 6.4 g/dL (6.3-8.3) 08/21/17 06:26 Albumin 3.6 g/dL (3.5-5.0) 08/21/17 06:26 Globulin 2.7 gm/dL (2.2-3.9) 08/21/17 06:26 Albumin/Globulin Ratio 1.3 (1.0-2.1) 08/21/17 06:26 Triglycerides 103 mg/dL (0-149) 08/20/17 06:20 Cholesterol 182 mg/dL (0-199) 08/20/17 06:20 LDL Cholesterol Direct 143 mg/dL (0-129) H 08/20/17 06:20 HDL Cholesterol 29 mg/dL (30-70) L 08/20/17 06:20 Lipase 62 U/L (23-300) 08/19/17 11:30 Free T4 1.24 ng/dL (0.78-2.19) 08/20/17 06:20 TSH 3rd Generation 0.49 mIU/L (0.46-4.68) 08/20/17 06:20 Stool Leukocytes, Qual Negative (NEGATIVE) 05/22/18 05:57 Urine Opiates Screen Negative (NEGATIVE) 08/19/17 16:46 Urine Methadone Screen Negative (NEGATIVE) 08/19/17 16:46 Ur Barbiturates Screen Negative (NEGATIVE) 08/19/17 16:46 Ur Phencyclidine Scrn Negative (NEGATIVE) 08/19/17 16:46 Ur Amphetamines Screen Negative (NEGATIVE) 08/19/17 16:46 U Benzodiazepines Scrn Negative (NEGATIVE) 08/19/17 16:46 U Oth Cocaine Metabols Negative (NEGATIVE) 08/19/17 16:46 U Cannabinoids Screen Negative (NEGATIVE) 08/19/17 16:46 Alcohol, Quantitative < 10 mg/dl (0-10) 08/19/17 16:46 Attending/Attestation - Attestation I have personally seen and examined this patient.: Yes I have fully participated in the care of the patient.: Yes I have reviewed all pertinent clinical information, including history, physical exam and plan: Yes Notes (Text): Patient seen, examined, and case discussed with day-time resident. Patient seen this morning. Patient seen this morning. Patient is amenable to medical management and reports will comply with medications. Patient was seen and fitted by [employer] sales representative malt liquors today. Patient is medically stable for discharge. Patient recommended to establish care with primary care doctor and cardiology. Alcohol cessation provided. Medications (month supply) * Aspirin [Aspirin Chewable] 81 mg PO DAILY #30 chew * Carvedilol [Coreg] 3.125 mg PO BID #60 tab * Furosemide [Lasix] 20 mg PO DAILY #30 tab * Lisinopril [Zestril] 20 mg PO DAILY #30 tab * Rosuvastatin Calcium [Crestor] 5 mg PO QPM #30 tab * Spironolactone [Aldactone] 25 mg PO DAILY #30 tab Patient will need to establish care or follow-up with [facility] for refills. Patient recommended to follow-up cardiology and establish care. Patient recommended to obtain cardiology to follow-up ejection fraction to see if improved. Patient also given information for [facility] in [place] as well as [place]. This is summary for patient's hospitalization. Please see EMR for further details. Updated in my note below: Discharge Diagnoses: 1) New onset, combined Diastolic and Systolic CHF Exacerbation, LVEF <15-20% Dilated Cardiomyopathy * Cardiology consulted, Dr Espinal - patient is for [employer] -was fitted prior to discharge today * Will need f/u with cardiology to monitor ejection fraction following compliance with medical management * Troponin negative x 3 * EKG: Left axis deviation, NSR at 100 bpm, with mild T wave inversions * BNP 3120 * D- Dimer - elevated, CTA negative for PE * ECHO: LVEF 15-20%, LV systolic dysfunction severely impaired, global hypokinesis Management: * ASA 81 mg PO daily, Crestor 5mg QHS * Lasix 20mg PO daily * Lisinopril 20mg PO daily * Coreg 3.125mg PO bid (hold SBP<100 and HR<60) * Aldactone 25mg PO daily * Strict Input and Output, daily weights, head of bed to 45 degrees * TSH, T4, HbA1c - WNL * Lipid panel - low HDL - will need OTC Madison 3 and fish oil 2) Alcohol use * Folic acid, multivitamin, thiamine PO daily * Ativan 2mg IV Q6 hour prn agitation/withdrawal * blood alcohol level < 10 * encourage alcohol cessation provided 3) Nicotine use * Nicoderm patch 14mg Q24 hours * Smoking cessation provided 4) 5 mm RLL nodule * risk factors: current smoker * will need repeat Chest CT in 3-6 months to follow up for changes, to be done outpatient 5) Hx Biliary Colic-->not symptomatic * No murphys on exam, hx gallstones * LFTS normal * Pt to follow up with [facility] for outpatient elective cholecystectomy and will need cardiac clearance prior to surgery in light of cardiomyopathy 6) Diarrhea/anal irritation-->resolved * patient to dab rectal area with wet toilet paper and let dry, do not rub the area * f/u stool studies 7) Prophylactic Measures * SCDS (risk factor 1) * No GI indicated * Heart healthy, 2gram sodium diet
[2017-08-21 16:03] VITALS: RESP 20; O2SAT 96
[2017-08-21 16:33] VITALS: BP 98/63; PULSE 98; TEMP 97.8
--- NOTE | 2017-08-21 17:09 | PCM.HF ---
Heart Failure Core Measure - Heart Failure Ejection Fraction: Less Than 40 % DONNA Inhibitor Prescribed: Yes Beta-Bradley Prescribed: Carvedilol Angiotensin II Receptor Bradley Prescribed: No Contraindication/Reason for not providing: on donna AnticoagulationTherapy for Atrial Fibrillation/Atrialflutter: No Contraindication/Reason for not providing: no hx of chf Aldosterone Antagonist Prescribed: Yes Hydralazine Nitrate Prescribed: No Contraindication/Reason for not providing: bp running low Implantable Cardioverter Defibrillator Therapy: No Contraindication/Reason for not providing: on vest trail Cardiac Resynchronization Therapy Prescribed: No Contraindication/Reason for not providing: NSR/ on vest trail - Follow up Will be discharged to: Home Follow Up Date (must be within 7 days from discharge): 08/27/17 Follow Up Time: 09:00
== END 2017-08-21 17:00 | disposition home or self-care (01) | DRG 127 ==
LOC: C.ER 10:22 → C.9E 15:08 → C.6T 15:41
PROVIDERS: ADMIT Family Medicine; ATTEND Hospitalist
PROC: HZ2ZZZZ Detoxification Services for Substance Abuse Treatment (ICD-10-PCS; principal; 2017-08-19)
DX: I50.43 Acute on chronic combined systolic (congestive) and diastolic (congestive) heart failure (principal); F10.230 Alcohol dependence with withdrawal, uncomplicated; I42.6 Alcoholic cardiomyopathy; I27.20 Pulmonary hypertension, unspecified; F17.210 Nicotine dependence, cigarettes, uncomplicated; Y90.0 Blood alcohol level of less than 20 mg/100 ml; R91.1 Solitary pulmonary nodule; R19.7 Diarrhea, unspecified

== ENCOUNTER 2017-11-10 18:42 | Inpatient (IN) | payer OTHER ==
[2017-11-10 18:43] VITALS: BMI 30.2
--- NOTE | 2017-11-10 19:19 | C.PDOC ---
History Of Present Illness 37 year old male presents to the ED complaining of palpitations and shortness of breath. Associated symptoms include tiredness and generalized weakness. Patient reports symptoms have been worsening since 3 days ago. He states he was recently diagnosed with CHF in July. Patient notes he has not been taking his medications over the past week. Denies fever, chills, nausea, vomiting, or cough. Time Seen by Provider: 11/10/17 19:18 Chief Complaint (Nursing): Shortness Of Breath History Per: Patient History/Exam Limitations: no limitations Onset/Duration Of Symptoms: Days Current Symptoms Are (Timing): Still Present Initiating Event: Other Quality: Dull Exacerbating Factor(s): Exertion, Laying Flat, Coughing Current Respiratory Medications: See Home Med List Severity: Moderate Pain Scale Rating Of: 5 Associated Symptoms: denies: Fever, Chills, Sweating Reports Recently: Seen In ED, Treated By A Physician, Hospitalized Recent travel outside of the [place]: No Additional History Per: Patient Past Medical History Reviewed: Historical Data, Nursing Documentation, Vital Signs Vital Signs: Last Vital Signs Temp 98.6 F 11/10/17 18:44 Pulse 133 H 11/10/17 18:44 Resp 20 11/10/17 19:30 BP 136/100 H 11/10/17 18:44 Pulse Ox 96 11/10/17 21:03 - Medical History PMH: CHF, Gall Bladder Disease Denies: Chronic Kidney Disease Surgical History: No Surg Hx - [facility] DETOXIFICATION SERVICES FOR SUBSTANCE ABUSE TREATMENT (08/19/17) Family History: States: No Known Family Hx - Social History Hx Alcohol Use: Yes Hx Substance Use: No Review Of Systems Constitutional: Negative for: Fever, Chills Eyes: Negative for: Vision Change ENT: Negative for: Throat Pain Cardiovascular: Positive for: Palpitations Respiratory: Positive for: Shortness of Breath. Negative for: Cough Gastrointestinal: Negative for: Nausea, Vomiting Genitourinary: Negative for: Dysuria Musculoskeletal: Negative for: Back Pain Skin: Negative for: Rash Neurological: Negative for: Weakness Psych: Negative for: Anxiety Physical Exam - Physical Exam Appears: Non-toxic, No Acute Distress Skin: Warm, Dry Head: Normacephalic Eye(s): bilateral: Normal Inspection Oral Mucosa: Moist Neck: Trachea Midline, Supple Chest: Symmetrical Cardiovascular: Rhythm Regular, Other (Tachycardic on exam ) Respiratory: Rales (Rales at the bases ), No Rhonchi, No Wheezing, Other ( Speaking incomplete sentences ) Gastrointestinal/Abdominal: Soft, No Tenderness, No Distention Back: No CVA Tenderness Extremity: No Pedal Edema Extremity: Bilateral: Atraumatic, Normal Color And Temperature, Normal ROM Pulses: Left Dorsalis Pedis: Normal, Right Dorsalis Pedis: Normal Neurological/Psych: Oriented x3, Normal Speech Gait: Steady ED Course And Treatment - Laboratory Results Result Diagrams: 11/10/17 20:07 11/10/17 20:07 ECG: Interpreted By Me, Viewed By Me ECG Rhythm: Sinus Tachycardia (126), ST/T Changes (lat ischemic changes), Nonspecific Changes O2 Sat by Pulse Oximetry: 96 (RA) Pulse Ox Interpretation: Normal - Radiology CXR Interpretation: Yes: Cardiomegaly, Other (chf). No: Infiltrates, Fracture Medical Decision Making Medical Decision Making: Impression: shortness of breath Orders: - EKG - Lab work - Blood work - UA Disposition Discussed With DrHarry: Surjit Gomez Comment: accepted the pt on his service and took over the care at 9:16 PM Doctor Will See Patient In The: ED Counseled Patient/Family Regarding: Studies Performed, Diagnosis - Disposition Disposition: HOSPITALIZED Disposition Time: 19:18 Condition: FAIR Forms: [facility] (Hebrew) - Clinical Impression Clinical Impression: Dyspnea, CHF (congestive heart failure) - Scribe Statement The provider has reviewed the documentation as recorded by the Scribe Jenny Cronin All medical record entries made by the Scribe were at my direction and personally dictated by me. I have reviewed the chart and agree that the record accurately reflects my personal performance of the history, physical exam, medical decision making, and the department course for this patient. I have also personally directed, reviewed, and agree with the discharge instructions and disposition. Decision To Admit - Pt Status Changed To: Hospital Disposition Of: Inpatient - Admit Certification Admit to Inpatient:: After my assessment, the patient will require hospitalization for at least two midnights. This is because of the severity of symptoms shown, intensity of services needed, and/or the medical risk in this patient being treated as an outpatient. - InPatient: Physician Admission Certification: I certify that this patient requires 2 or more midnights of care for the following reason:: After my assessment, the patient will require hospitalization for at least two midnights. This is because of the severity of symptoms shown, intensity of services needed, and/or the medical risk in this patient being treated as an outpatient. - . Bed Request Type: Telemetry Admitting Physician: Surjit Gomez Patient Diagnosis: Dyspnea, CHF (congestive heart failure)
[2017-11-10 20:09] LABS: BASO # 0.1 K/uL (0.0-0.2); BASO % 0.6 % (0.0-2.0); EOS % 0.2 % (0.0-4.0); HEMOGLOBIN 13.3 g/dL (12.0-18.0); LYMPH # 2.8 K/uL (1.0-4.3); LYMPH % 26.3 % (20.0-40.0); MEAN CELL VOLUME 82.9 fL (80.0-94.0); MEAN CORPUSCULAR HEMOGLOBIN 27.1 pg (27.0-31.0); MEAN CORPUSCULAR HGB CONC 32.7 g/dL (33.0-37.0); MEAN PLATELET VOLUME 7.4 fL (7.2-11.7); MONO # 0.6 K/uL (0.0-0.8); MONO % 6.1 % (0.0-10.0); NEUT % 66.8 % (50.0-75.0); NRBC % 0.2 % (0.0-2.0); RBC 4.89 Mil/uL (4.40-5.90); RED CELL DISTRIBUTION WIDTH 15.7 % (11.5-14.5); WHITE BLOOD COUNT 10.5 K/uL (4.8-10.8)
[2017-11-10 20:13] LABS: VENOUS BLOOD GAS PCO2 26 mmHg (40-60); VENOUS BLOOD GAS PO2 56 mm/Hg (30-55); VENOUS BLOOD PH 7.38 (7.32-7.43)
[2017-11-10 20:22] LABS: ALB/GLOB RATIO 1.4 (1.0-2.1); ALBUMIN 4.2 g/dL (3.5-5.0); ALT/SGPT 35 U/L (21-72); AST/SGOT 23 U/L (17-59); BLOOD UREA NITROGEN 17 mg/dL (9-20); CALCIUM 9.4 mg/dl (8.6-10.4); GFR AFRICAN-AMERICAN > 60; GFR NON-AFRICAN AMERICAN > 60
[2017-11-10 20:30] LABS: D DIMER < 200 ng/mlDDU (0-243); INR 1.4; PARTIAL THROMBOPLASTIN TIME 34 SECONDS (21-34); PROTHROMBIN TIME 15.8 SECONDS (9.7-12.2)
[2017-11-10 20:34] LABS: B-TYPE NATRIURETIC PEPTIDE 4050 pg/mL (0-450)
[2017-11-10 22:43] LABS: SQUAMOUS EPITHIAL < 1 /hpf (0-5); URINE BILIRUBIN NEGATIVE (NEGATIVE); URINE BLOOD NEGATIVE (NEGATIVE); URINE CLARITY Clear (Clear); URINE COLOR Yellow (YELLOW); URINE GLUCOSE (UA) NORMAL (Normal); URINE LEUKOCYTE ESTERASE NEG Leu/uL (Negative); URINE PROTEIN NEGATIVE (NEGATIVE); URINE UROBILINOGEN NORMAL mg/dL (0.2-1.0)
[2017-11-10 22:59] LABS: BARBITURATES, UR NEGATIVE (NEGATIVE); BENZODIAZEPINES, UR NEGATIVE (NEGATIVE); OPIATES, UR NEGATIVE (NEGATIVE); PHENCYCLIDINE, UR NEGATIVE (NEGATIVE)
--- NOTE | 2017-11-11 04:16 | CP.PCM.PN ---
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 * Counselled about compliance. Objective - Vital Signs/Intake and Output Vital Signs (last 24 hours): Temp Pulse Resp BP Pulse Ox 97.7 F 118 H 20 142/78 100 11/10/17 23:32 11/10/17 23:32 11/11/17 00:30 11/10/17 23:32 11/11/17 00:30 - Medications Medications: Current Medications Aspirin (Aspirin Chewable) 81 mg PO DAILY [facility] Carvedilol (Coreg) 3.125 mg PO BID [facility] Furosemide (Lasix) 20 mg PO DAILY [facility] Heparin Sodium (Porcine) (Heparin) 5,000 units SC Q8 [facility] Lisinopril (Zestril) 10 mg PO DAILY [facility] Pneumococcal Polyvalent Vaccine (Pneumovax 23 Vaccine) 0.5 ml IM .ONCE ONE Stop: 11/13/17 10:01 Rosuvastatin Calcium (Crestor) 5 mg PO HS [facility] Spironolactone (Aldactone) 25 mg PO DAILY [facility] - Labs Labs: 11/10/17 20:07 11/10/17 20:07 PT 15.8 SECONDS (9.7-12.2) H 11/10/17 20:07 INR 1.4 11/10/17 20:07 APTT 34 SECONDS (21-34) 11/10/17 20:07
--- NOTE | 2017-11-11 04:29 | CP.PCM.HP ---
History of Present Illness - History of Present Illness History of Present Illness: HPI: Patient is a 37 year old male, with PMHx of CHF,HTN, presents for shortness of breath. He states this has progressed over the last month. The patient states he is barely able to sleep and is not able to lie flat or he will become short of breath. Pt uses 4 pillows and a comforter to sleep. He states he feels like he has chest tightness. Pt has not been compliant with following up at [facility] and was unable to obtain a refill for his medications and has not been taking them. He denies leg edema. Patient denies fever/chills, headache, changes in vision, palpitations, diaphoresis. PMH: Tobacco abuse disorder, ETOH abuse disorder, Cholelithiasis, CHF, HTN PSHx: None Allergies: NKDA Meds: Spirinolactone 25mg PO Cresto 5mg PO daily Lisinopril 20mg PO Daily Lasix 20mg PO daily Coreg 3.125mg PO daily ASA 81mg PO daily FHx: Father (, [place] - age 47), Grand father and uncles all of [place]. mother alive with HTN, has 4 children no medical problems SHX: Former ETOH use, Former smoker Code status: Full code AD: none Proxy: Mother: Nataliia Love PMD: Dr Rdz Present on Admission - Present on Admission Any Indicators Present on Admission: No Review of Systems - Constitutional Constitutional: Snoring. absent: Chills, Excessive Sweating, Weight Loss - EENT Eyes: absent: Blind Spots, Blurred Vision, Itchy Eyes, Spots in Vision, Loss of Vision - Cardiovascular Cardiovascular: Dyspnea on Exertion. absent: Pain Radiating to Arm/Neck/Jaw, Leg Edema, Lightheadedness, Palpitations, Pedal Edema, Syncope - Respiratory Respiratory: Dyspnea on Exertion, Snoring, Chest Congestion - Gastrointestinal Gastrointestinal: absent: Change in Bowel Habits, Constipation, Hematemesis, Hematochezia, Loose Stools, Nausea, Vomiting - Musculoskeletal Musculoskeletal: absent: Muscle Weakness, Numbness, Radiating Pain into Limb, Tingling - Integumentary Integumentary: absent: Change in Nails - Neurological Neurological: absent: Dizziness, Numbness, Focal Weakness, Frequent Falls, Headaches, Memory Loss, Weakness - Psychiatric Psychiatric: absent: Anxiety, Depression, Hopelessness, Panic Attacks - Endocrine Endocrine: Fatigue. absent: Palpitations Past Patient History - Past Medical History & Family History Past Medical History?: Yes - Past Social History Smoking Status: Former Smoker - CARDIAC Hx Congestive Heart Failure: Yes - PULMONARY Hx Respiratory Disorders: No - NEUROLOGICAL Hx Neurological Disorder: No - HEENT Hx HEENT Problems: No - RENAL Hx Chronic Kidney Disease: No - ENDOCRINE/METABOLIC Hx Endocrine Disorders: No - HEMATOLOGICAL/ONCOLOGICAL Hx Blood Disorders: No - INTEGUMENTARY Hx Dermatological Problems: No - MUSCULOSKELETAL/RHEUMATOLOGICAL Hx Musculoskeletal Disorders: No Hx Falls: No - GASTROINTESTINAL Hx Gall Bladder Disease: Yes - GENITOURINARY/GYNECOLOGICAL Hx Genitourinary Disorders: No - PSYCHIATRIC Hx Psychophysiologic Disorder: No Hx Substance Use: No - SURGICAL HISTORY Hx Surgeries: No - ANESTHESIA Hx Anesthesia: No Hx Anesthesia Reactions: No Meds Allergies/Adverse Reactions: Allergies Allergy/AdvReac Type Severity Reaction Status Date / Time No Known Allergies Allergy Verified 11/10/17 18:46 Physical Exam - Constitutional Appears: Non-toxic, No Acute Distress - Head Exam Head Exam: ATRAUMATIC, NORMAL INSPECTION - Eye Exam Eye Exam: EOMI, Normal appearance. absent: Scleral icterus - ENT Exam ENT Exam: Mucous Membranes Moist - Neck Exam Neck exam: Positive for: Normal Inspection - Respiratory Exam Respiratory Exam: Wheezes, NORMAL BREATHING PATTERN - Cardiovascular Exam Cardiovascular Exam: RRR, +S1, +S2 - GI/Abdominal Exam GI & Abdominal Exam: Soft. absent: Tenderness - Extremities Exam Extremities exam: Positive for: pedal pulses present. Negative for: calf tenderness, joint swelling, pedal edema, tenderness - Back Exam Back exam: NORMAL INSPECTION - Neurological Exam Neurological exam: Alert, CN II-XII Intact, Oriented x3 - Psychiatric Exam Psychiatric exam: Normal Affect, Normal Mood - Skin Skin Exam: Warm Results - Vital Signs Recent Vital Signs: Last Vital Signs Temp 97.7 F 11/10/17 23:32 Pulse 118 H 11/10/17 23:32 Resp 20 11/11/17 00:30 BP 142/78 11/10/17 23:32 Pulse Ox 100 11/11/17 00:30 - Labs Result Diagrams: 11/10/17 20:07 11/10/17 20:07 Labs: Laboratory Results - last 24 hr 11/10/17 11/10/17 11/10/17 20:07 20:07 20:07 WBC 10.5 RBC 4.89 Hgb 13.3 D Hct 40.5 MCV 82.9 D MCH 27.1 MCHC 32.7 L RDW 15.7 H Plt Count 332 MPV 7.4 Neut % (Auto) 66.8 Lymph % (Auto) 26.3 [place] % (Auto) 6.1 Eos % (Auto) 0.2 Baso % (Auto) 0.6 Neut # (Auto) 7.0 Lymph # (Auto) 2.8 [place] # (Auto) 0.6 Eos # (Auto) 0.0 Baso # (Auto) 0.1 PT 15.8 H INR 1.4 APTT 34 D-Dimer, Quantitative < 200 pO2 VBG pH VBG pCO2 VBG HCO3 VBG Total CO2 VBG O2 Sat (Calc) VBG Base Excess VBG Potassium Glucose Lactate Sodium 140 Potassium 4.6 Chloride 109 H Carbon Dioxide 21 L Anion Gap 15 BUN 17 Creatinine 1.0 Est GFR ( Amer) > 60 Est GFR (Non-Af Amer) > 60 Random Glucose 97 Calcium 9.4 Magnesium 2.0 Total Bilirubin 0.9 AST 23 ALT 35 Alkaline Phosphatase 60 Troponin I 0.0260 NT-Pro-B Natriuret Pep 4050 H Total Protein 7.3 Albumin 4.2 Globulin 3.0 Albumin/Globulin Ratio 1.4 TSH 3rd Generation 0.64 Venous Blood Potassium Urine Color Urine Clarity Urine pH Ur Specific Stanford Urine Protein Urine Glucose (UA) Urine Ketones Urine Blood Urine Nitrate Urine Bilirubin Urine Urobilinogen Ur Leukocyte Esterase Ur Squamous Epith Cells Urine Opiates Screen Urine Methadone Screen Ur Barbiturates Screen Ur Phencyclidine Scrn Ur Amphetamines Screen U Benzodiazepines Scrn U Oth Cocaine Metabols U Cannabinoids Screen 11/10/17 11/10/17 11/10/17 20:10 22:37 22:37 WBC RBC Hgb Hct MCV MCH MCHC RDW Plt Count MPV Neut % (Auto) Lymph % (Auto) [place] % (Auto) Eos % (Auto) Baso % (Auto) Neut # (Auto) Lymph # (Auto) [place] # (Auto) Eos # (Auto) Baso # (Auto) PT INR APTT D-Dimer, Quantitative pO2 56 H VBG pH 7.38 VBG pCO2 26 L VBG HCO3 18.4 VBG Total CO2 16.2 L VBG O2 Sat (Calc) 92.0 H VBG Base Excess -8.0 L VBG Potassium 2.9 L Glucose 67 L Lactate 0.9 Sodium 147.0 Potassium Chloride 119.0 H Carbon Dioxide Anion Gap BUN Creatinine Est GFR ( Amer) Est GFR (Non-Af Amer) Random Glucose Calcium Magnesium Total Bilirubin AST ALT Alkaline Phosphatase Troponin I NT-Pro-B Natriuret Pep Total Protein Albumin Globulin Albumin/Globulin Ratio TSH 3rd Generation Venous Blood Potassium 2.9 L Urine Color Yellow Urine Clarity Clear Urine pH 5.0 Ur Specific Stanford 1.009 Urine Protein Negative Urine Glucose (UA) Normal Urine Ketones Negative Urine Blood Negative Urine Nitrate Negative Urine Bilirubin Negative Urine Urobilinogen Normal Ur Leukocyte Esterase Neg Ur Squamous Epith Cells < 1 Urine Opiates Screen Negative Urine Methadone Screen Negative Ur Barbiturates Screen Negative Ur Phencyclidine Scrn Negative Ur Amphetamines Screen Negative U Benzodiazepines Scrn Negative U Oth Cocaine Metabols Negative U Cannabinoids Screen Negative Assessment & Plan - Assessment and Plan (Free Text) Assessment: CHF/ Cardiomyopathy -EF 25% -ASA 81mg PO daily -Coreg 3.125mg PO daily -Lasix 40mg IV -Lisinopril 10mg PO daily -Rosuvastatin 5mg PO HS -Spirinolaction PO Daily Poor Compliance -industrial relations counselor pt on CHF managment -follow up w [facility] -Lifestyle modification PPX -heparin 5000units sc -ASA 81mg PO daily
[2017-11-11 07:50] LABS: HEMOGLOBIN 13.4 g/dL (12.0-18.0); MEAN CELL VOLUME 83.6 fL (80.0-94.0); MEAN CORPUSCULAR HEMOGLOBIN 27.7 pg (27.0-31.0); MEAN CORPUSCULAR HGB CONC 33.2 g/dL (33.0-37.0); MEAN PLATELET VOLUME 7.9 fL (7.2-11.7); RBC 4.85 Mil/uL (4.40-5.90); RED CELL DISTRIBUTION WIDTH 16.2 % (11.5-14.5); WHITE BLOOD COUNT 9.8 K/uL (4.8-10.8)
[2017-11-11 08:15] LABS: ALB/GLOB RATIO 1.3 (1.0-2.1); ALBUMIN 4.1 g/dL (3.5-5.0); ALT/SGPT 34 U/L (21-72); AST/SGOT 18 U/L (17-59); BLOOD UREA NITROGEN 16 mg/dL (9-20); GFR AFRICAN-AMERICAN > 60; GFR NON-AFRICAN AMERICAN > 60
--- NOTE | 2017-11-11 15:18 | RAD ---
Date of service: 11/10/2017 PROCEDURE: CHEST RADIOGRAPH, 1 VIEW HISTORY: chf COMPARISON: Comparison is made with 08/19/2017 FINDINGS: LUNGS: Moderate pulmonary vascular congestion is noted. PLEURA: No pneumothorax or pleural fluid seen. CARDIOVASCULAR: Cardiomegaly is noted. OSSEOUS STRUCTURES: No significant abnormalities. VISUALIZED UPPER ABDOMEN: Normal. OTHER FINDINGS: None. IMPRESSION: Cardiomegaly and moderate pulmonary vascular congestion.
--- NOTE | 2017-11-11 20:30 | CP.PCM.PN ---
Subjective - Date & Time of Evaluation Date of Evaluation: 11/11/17 Time of Evaluation: 16:30 - Subjective Subjective: Hospitalist Progress Note Patient was seen and examined at 4:30 PM 11/11/17 [id number] A 37 year old male with past medical history of HFrEF (Systolic Heart Failure/ Dilated Cardiomyopathy with EF 20% requiring Life Vest) was admitted during night of 11/10/17 for further evaluation of SOB. Chest X Ray showed cardiomegaly and pulmonary congestion. He was found to be tachycardic in the ER. Dose of Lasix 40 mg IV was given in the ER. Patient had not been taking any medication for the past 2 weeks as he ran out and states that he could not go back to the [facility] for refills. He was started back on his regimen of medications (on which he was discharged on 08/21/17) and by the time of my exam his SOB although still present had improved. He states that he does wear his life vest and his brother Mikey (who was at bedside during exam) will bring it in. He states that he did see Calender Supervisor Dr. Monty Espinal in the clinic but has not followed up with him concerning the plan for AICD. Upon FULL ROS SOB is still present but improved since his admission NO dysphagia/odynopahgia NO soreness in throat NO cough NO sinus/nasal congestion NO fever/chills NO muscle aches/pains NO joint pain NO chest pain/palpations NO abdominal pain NO n/v/d/c: last normal bowel movement was 11/10/17 morning NO burning pain with urination NO WALLS NO lightheadedness/dizziness NO paresthesias Exam: General: AAOX3, NAD, Speaking in full sentences and in NO signs of respiratory distress HEENT: NCA, EOMI, PERRLA, NO cervical/supraclavicular/submandibular lymphadenopathy, NO pharyngeal erythema/exudate, Nasal Turbinates are nonerythematous/nonedematous, Oral Mucosa is moist Cardio: NS1 and NS2, NO M/R/G, NO JVD or Hepatojugular Reflux noted Resp: CTA B/L, Inspiratory Crackles Bibasilar area GI: BSx4, Soft, NT, NO HSM, NO guarding/rebound tenderness Ext: Pulses are strong and equal, Capillary Refill is 2 seconds, NO edema Neuro: CN II through XII are grossly intact Assessments: 1). HFrEF (Systolic Heart Failure/Dilated Cardiomyopathy with EF 20% requiring Life Vest) Please see details in HPI above ASA 81 mg PO 1x/day Carvedilol 3.125 mg PO 2x/day Furosemide 20 mg PO 1x/day Lisinopril 20 mg PO 1x/day Crestor 5 mg PO 1x/day Spironolactone 25 mg PO 1x/day Fluid restriction at 1,500 ml per day Sodium restriction at 2 gm per day Echocardiogram 08/19/17: LV moderate dilation, LV filling pressures elevated, LA dilated, EF 20% (please see full report) Consider cardiology carbon printer consultation. Make sure Life Vest is delivered by brother Mikey. Provide patient with 90 supply prescription for his medications. Stressed compliance with his medications and his follow up with the Clinic and Calender Supervisor at clinic: explained to him that we can assist and advise him but that he had to care more about him than we do. He will need CT Chest through the clinic before end of the year for follow up of Lung Nodule If he continues to improve, then for discharge 11/12/17. Akil Sandoval D.O. Objective - Vital Signs/Intake and Output Vital Signs (last 24 hours): Temp Pulse Resp BP Pulse Ox 98.3 F 104 H 18 97/67 L 99 11/11/17 15:00 11/11/17 20:00 11/11/17 15:00 11/11/17 15:00 11/11/17 15:00 - Medications Medications: Current Medications Aspirin (Aspirin Chewable) 81 mg PO DAILY [facility] Last Admin: 11/11/17 09:54 Dose: 81 mg Carvedilol (Coreg) 3.125 mg PO BID [facility] Last Admin: 11/11/17 17:08 Dose: 3.125 mg Furosemide (Lasix) 20 mg PO DAILY [facility] Last Admin: 11/11/17 09:55 Dose: 20 mg Heparin Sodium (Porcine) (Heparin) 5,000 units SC Q8 [facility] Last Admin: 11/11/17 13:14 Dose: 5,000 units Lisinopril (Zestril) 20 mg PO DAILY [facility] Pneumococcal Polyvalent Vaccine (Pneumovax 23 Vaccine) 0.5 ml IM .ONCE ONE Stop: 11/13/17 10:01 Rosuvastatin Calcium (Crestor) 5 mg PO HS [facility] Spironolactone (Aldactone) 25 mg PO DAILY [facility] Last Admin: 11/11/17 09:54 Dose: 25 mg - Labs Labs: 11/11/17 07:43 11/11/17 07:43 PT 15.8 SECONDS (9.7-12.2) H 11/10/17 20:07 INR 1.4 11/10/17 20:07 APTT 34 SECONDS (21-34) 11/10/17 20:07
[2017-11-12 07:37] LABS: BASO # 0.1 K/uL (0.0-0.2); BASO % 1.5 % (0.0-2.0); EOS # 0.1 K/uL (0.0-0.7); EOS % 0.6 % (0.0-4.0); HEMOGLOBIN 13.7 g/dL (12.0-18.0); LYMPH % 33.1 % (20.0-40.0); MEAN CELL VOLUME 83.1 fL (80.0-94.0); MEAN CORPUSCULAR HEMOGLOBIN 27.8 pg (27.0-31.0); MEAN CORPUSCULAR HGB CONC 33.4 g/dL (33.0-37.0); MEAN PLATELET VOLUME 7.8 fL (7.2-11.7); MONO # 0.6 K/uL (0.0-0.8); MONO % 6.4 % (0.0-10.0); NEUT # 5.3 K/uL (1.8-7.0); NEUT % 58.4 % (50.0-75.0); NRBC % 0.1 % (0.0-2.0); RBC 4.93 Mil/uL (4.40-5.90); RED CELL DISTRIBUTION WIDTH 15.7 % (11.5-14.5); WHITE BLOOD COUNT 9.1 K/uL (4.8-10.8)
[2017-11-12 08:03] LABS: ALB/GLOB RATIO 1.3 (1.0-2.1); ALBUMIN 3.9 g/dL (3.5-5.0); ALT/SGPT 31 U/L (21-72); AST/SGOT 20 U/L (17-59); BLOOD UREA NITROGEN 18 mg/dL (9-20); CALCIUM 9.4 mg/dl (8.6-10.4); GFR AFRICAN-AMERICAN > 60; GFR NON-AFRICAN AMERICAN > 60
--- NOTE | 2017-11-12 09:52 | CP.PCM.PN ---
<Dalia Lucero - Last Filed: 11/12/17 18:34> Subjective - Date & Time of Evaluation Date of Evaluation: 11/12/17 Time of Evaluation: 09:35 - Subjective Subjective: PGY-1 Dalia Lucero D.O. Medicine progress note for Dr. Patel service: Patient is seen and examined this morning. He is lying in bed with the head elevated at 45 degrees. He is utilizing 2L O2 via NC. He is not in acute distress. He reports having trouble sleeping due to SOB despite O2 use. He states he has not refilled his medications for the past 2 weeks- he typically gets all of his prescriptions from his support services coordinator, Dr. Espinal. He reprots on a good day, he is able to walk 8-10 blocks without any issues. However, recently , he has barely been able to walk 1-2 blocks without getting severely short of breath. He also endorses occasional heart palpitations even at rest. He denies swelling. He denies abd pain/N/V/D/C. He denies chest pain. Objective - Vital Signs/Intake and Output Vital Signs (last 24 hours): Temp Pulse Resp BP Pulse Ox 97.6 F 104 H 18 102/76 100 11/12/17 07:00 11/12/17 07:00 11/12/17 07:00 11/12/17 07:00 11/12/17 07:00 Intake and Output: 11/12/17 11/12/17 06:59 18:59 Intake Total 300 Balance 300 - Medications Medications: Current Medications Aspirin (Aspirin Chewable) 81 mg PO DAILY [facility] Last Admin: 11/11/17 09:54 Dose: 81 mg Carvedilol (Coreg) 3.125 mg PO BID [facility] Last Admin: 11/11/17 17:08 Dose: 3.125 mg Furosemide (Lasix) 20 mg PO DAILY [facility] Last Admin: 11/11/17 09:55 Dose: 20 mg Heparin Sodium (Porcine) (Heparin) 5,000 units SC Q8 [facility] Last Admin: 11/12/17 06:13 Dose: 5,000 units Lisinopril (Zestril) 20 mg PO DAILY [facility] Pneumococcal Polyvalent Vaccine (Pneumovax 23 Vaccine) 0.5 ml IM .ONCE ONE Stop: 11/13/17 10:01 Rosuvastatin Calcium (Crestor) 5 mg PO HS [facility] Last Admin: 11/11/17 21:23 Dose: 5 mg Spironolactone (Aldactone) 25 mg PO DAILY [facility] Last Admin: 11/11/17 09:54 Dose: 25 mg - Labs Labs: 11/12/17 07:28 11/12/17 07:28 PT 15.8 SECONDS (9.7-12.2) H 11/10/17 20:07 INR 1.4 11/10/17 20:07 APTT 34 SECONDS (21-34) 11/10/17 20:07 - Constitutional Appears: Well, No Acute Distress, Other (O2 via NC @ 2L) - Head Exam Head Exam: ATRAUMATIC, NORMAL INSPECTION, NORMOCEPHALIC - Eye Exam Eye Exam: EOMI, Normal appearance - ENT Exam ENT Exam: Mucous Membranes Moist, Normal Exam - Neck Exam Neck Exam: Normal Inspection - Respiratory Exam Respiratory Exam: Rales (b/l), NORMAL BREATHING PATTERN - Cardiovascular Exam Cardiovascular Exam: Tachycardia, +S1, +S2 - GI/Abdominal Exam GI & Abdominal Exam: Soft, Normal Bowel Sounds. absent: Tenderness - Rectal Exam Rectal Exam: Deferred - Extremities Exam Extremities Exam: Full ROM, Normal Inspection. absent: Pedal Edema - Back Exam Back Exam: NORMAL INSPECTION - Neurological Exam Neurological Exam: Alert, Awake, Oriented x3 - Psychiatric Exam Psychiatric exam: Normal Affect, Normal Mood - Skin Skin Exam: Dry, Intact, Normal Color, Warm Assessment and Plan - Assessment and Plan (Free Text) Assessment: Patient is a 37 yo male with a history of CHF and HTN who presented with worsening SOB and chest tightness. He admits to not taking his medications for the past 2 weeks. He does not use O2 at home, but is now requiring supplemental NC for comfort. Plan: HFrEF (Systolic Heart Failure/Dilated Cardiomyopathy with EF 20% requiring Life Vest) - Echocardiogram 08/19/17: LV moderate dilation, LV filling pressures elevated , LA dilated, EF 20% - CXR 11/11: cardiomegaly, pulmonary congestion - BNP on admission 4050 - Supplemental O2 via NC PRN- wean as tolerated - ASA 81 mg PO 1x/day - Carvedilol 3.125 mg PO 2x/day - Furosemide 20 mg PO 1x/day - Lisinopril 20 mg PO 1x/day - Crestor 5 mg PO 1x/day - Spironolactone 25 mg PO 1x/day - Duonebs q6hrs PRN - HOB 45 degrees - Daily weights: 215 on admission 11/11, 209 today 11/12 - Fluid restriction at 1,200 ml per day - Sodium restriction at 2 gm per day - Cardiology consulted (Dr. Puga)- f/u as outpatient, may need myocardial Bx - PT consult Sinus tachycardia, stable - Monitor on telemetry - Cardiology consulted (Dr. Puga) Essential HTN, chronic, controlled - Vitals q4hrs - Antihypertensive meds as listed above Medication and Lifevest compliance discussed extensively with patient. IVF: not indicated VTE ppx: heparin 5000u SC q8hrs GI ppx: not indicated Diet: heart healthy Code status: full code <Amy Arreguin V - Last Filed: 11/12/17 21:47> Objective - Vital Signs/Intake and Output Vital Signs (last 24 hours): Temp Pulse Resp BP Pulse Ox 97.6 F 101 H 20 100/69 99 11/12/17 16:00 11/12/17 16:00 11/12/17 16:00 11/12/17 16:00 11/12/17 16:00 - Medications Medications: Current Medications Albuterol/Ipratropium (Duoneb 3 Mg/0.5 Mg (3 Ml) Ud) 3 ml INH RQ6 PRN PRN Reason: Shortness of Breath Aspirin (Aspirin Chewable) 81 mg PO DAILY [facility] Last Admin: 11/12/17 10:23 Dose: 81 mg Carvedilol (Coreg) 3.125 mg PO BID [facility] Last Admin: 11/12/17 19:00 Dose: 3.125 mg Furosemide (Lasix) 20 mg PO DAILY [facility] Last Admin: 11/12/17 10:25 Dose: 20 mg Heparin Sodium (Porcine) (Heparin) 5,000 units SC Q8 [facility] Last Admin: 11/12/17 14:18 Dose: 5,000 units Lisinopril (Zestril) 20 mg PO DAILY [facility] Last Admin: 11/12/17 12:30 Dose: 20 mg Pneumococcal Polyvalent Vaccine (Pneumovax 23 Vaccine) 0.5 ml IM .ONCE ONE Stop: 11/13/17 10:01 Rosuvastatin Calcium (Crestor) 5 mg PO [facility] Last Admin: 11/11/17 21:23 Dose: 5 mg Spironolactone (Aldactone) 25 mg PO DAILY [facility] Last Admin: 11/12/17 10:00 Dose: Not Given - Labs Labs: 11/12/17 07:28 11/12/17 07:28 PT 15.8 SECONDS (9.7-12.2) H 11/10/17 20:07 INR 1.4 11/10/17 20:07 APTT 34 SECONDS (21-34) 11/10/17 20:07 Attending/Attestation - Attestation I have personally seen and examined this patient.: Yes I have fully participated in the care of the patient.: Yes I have reviewed all pertinent clinical information, including history, physical exam and plan: Yes Notes (Text): Patient seen, examined, and case discussed with day-time resident. Patient seen with resident at bedside this morning. Patient is known to me from his prior admission wherein he was diagnosed with new onset systolic heart failure suspected secondary to his alcohol use. Patient seen this morning. Patient reports he has been noncompliant with his medication for the past 2 weeks because he is unable to make it to the doctor's office because of either rain storm one week and felt too tired the second week. I did advised him that he needs regular follow-up with support services coordinator and/or PMD given the nature of his heart failure and if he sees his pills about to run out that he needs to make appointment before the medication runs out. Patient reports he is compliant on fluid restriction and dietary changes since his last hospitalization; noted baked not fried fluids and drinks 2-3cups of fluid total. Patient's brother has brought in Lifevest today. We have consult physical therapy given his weakness. Assessment/Plan 1)Combined Diastolic and Systolic CHF Exacerbation, LVEF <15-20% Dilated Cardiomyopathy History of Noncompliance to medications Assessment/Plan * Cardiology chief [facility] division-->f/u recommendations * Troponin negative x 2 * BNP 3120-->4050 * ECHO: LVEF 15-20%, LV systolic dysfunction severely impaired, global hypokinesis * CHE X2 negative * Fluid restriction * intake and outputs Management: * ASA 81 mg PO daily * Crestor 5mg QHS * Lasix 20mg PO daily * Lisinopril 20mg PO daily * Coreg 3.125mg PO bid (hold SBP<100 and HR<60) * Aldactone 25mg PO daily * Strict Input and Output, daily weights, head of bed to 45 degrees * TSH, T4, HbA1c - WNL * Lipid panel - low HDL - will need OTC [place] 3 and fish oil 2) Prior history of Alcohol use Assessment/Plan * Folic acid, multivitamin, thiamine PO daily * encourage alcohol cessation provided 3) Tobacco user Assessment/Plan * Start Nicoderm patch 14mg Q24 hours * Smoking cessation provided 4) 5 mm RLL nodule * risk factors: current smoker * will need repeat Chest CT in 3-6 months to follow up for changes, to be done outpatient (found in July 2017 CT scan) 5) Prophylactic Measures * SCDS (risk factor 1) * No GI indicated * Heart healthy, 2gram sodium diet * PT eval Disposition: pending cardiology evaluation; obtain physical therapy. re- emphasized importance on compliance on medications
[2017-11-12] MEDS ORDERED: Albuterol-Ipratrop 3 mg / 0.5 (3 ml) UD INH PRN (11:35)
--- NOTE | 2017-11-12 12:55 | CP.PCM.CON ---
History of Present Illness - History of Present Illness History of Present Illness: 37 years old male admitted with tachycardia and congestive heart failure is improved on the current medication. Patient has end-stage cardiomegaly with left ventricle ejection fraction of 20% etiology unclear. Patient also has LifeVest and sometimes patient is noncompliant with it. Plan; Patient is improved with current medication does not need any new lesion. Follow-up with patient's radio division captain in the medical clinic. Etiology of cardiomyopathy is unclear if this patient patient should have myocardial biopsy if there is no history of alcoholism on the discretion of patient's regular radio division captain in the clinic. follow up with the tooth cutter spur who has placed the LifeVest on the patient. Past Patient History - Past Medical History & Family History Past Medical History?: Yes - Past Social History Smoking Status: Former Smoker - CARDIAC Hx Congestive Heart Failure: Yes - PULMONARY Hx Respiratory Disorders: No - NEUROLOGICAL Hx Neurological Disorder: No - HEENT Hx HEENT Problems: No - RENAL Hx Chronic Kidney Disease: No - ENDOCRINE/METABOLIC Hx Endocrine Disorders: No - HEMATOLOGICAL/ONCOLOGICAL Hx Blood Disorders: No - INTEGUMENTARY Hx Dermatological Problems: No - MUSCULOSKELETAL/RHEUMATOLOGICAL Hx Musculoskeletal Disorders: No Hx Falls: No - GASTROINTESTINAL Hx Gall Bladder Disease: Yes - GENITOURINARY/GYNECOLOGICAL Hx Genitourinary Disorders: No - PSYCHIATRIC Hx Psychophysiologic Disorder: No Hx Substance Use: No - SURGICAL HISTORY Hx Surgeries: No - ANESTHESIA Hx Anesthesia: No Hx Anesthesia Reactions: No Meds Allergies/Adverse Reactions: Allergies Allergy/AdvReac Type Severity Reaction Status Date / Time No Known Allergies Allergy Verified 11/10/17 18:46 - Medications Medications: Current Medications Albuterol/Ipratropium (Duoneb 3 Mg/0.5 Mg (3 Ml) Ud) 3 ml INH RQ6 PRN PRN Reason: Shortness of Breath Aspirin (Aspirin Chewable) 81 mg PO DAILY [facility] Last Admin: 11/12/17 10:23 Dose: 81 mg Carvedilol (Coreg) 3.125 mg PO BID [facility] Last Admin: 11/12/17 10:25 Dose: 3.125 mg Furosemide (Lasix) 20 mg PO DAILY [facility] Last Admin: 11/12/17 10:25 Dose: 20 mg Heparin Sodium (Porcine) (Heparin) 5,000 units SC Q8 [facility] Last Admin: 11/12/17 06:13 Dose: 5,000 units Lisinopril (Zestril) 20 mg PO DAILY [facility] Last Admin: 11/12/17 12:30 Dose: 20 mg Pneumococcal Polyvalent Vaccine (Pneumovax 23 Vaccine) 0.5 ml IM .ONCE ONE Stop: 11/13/17 10:01 Rosuvastatin Calcium (Crestor) 5 mg PO HS [facility] Last Admin: 11/11/17 21:23 Dose: 5 mg Spironolactone (Aldactone) 25 mg PO DAILY [facility] Last Admin: 11/11/17 09:54 Dose: 25 mg Results - Vital Signs Recent Vital Signs: Last Vital Signs Temp 97.6 F 11/12/17 07:00 Pulse 104 H 11/12/17 07:00 Resp 18 11/12/17 07:00 BP 110/79 11/12/17 10:25 Pulse Ox 100 11/12/17 07:00 - Labs Result Diagrams: 11/12/17 07:28 11/12/17 07:28 Labs: Laboratory Results - last 24 hr 11/12/17 11/12/17 07:28 07:28 WBC 9.1 RBC 4.93 Hgb 13.7 Hct 41.0 MCV 83.1 MCH 27.8 MCHC 33.4 RDW 15.7 H Plt Count 346 MPV 7.8 Neut % (Auto) 58.4 Lymph % (Auto) 33.1 [place] % (Auto) 6.4 Eos % (Auto) 0.6 Baso % (Auto) 1.5 Neut # (Auto) 5.3 Lymph # (Auto) 3.0 [place] # (Auto) 0.6 Eos # (Auto) 0.1 Baso # (Auto) 0.1 Sodium 141 Potassium 4.0 Chloride 108 H Carbon Dioxide 23 Anion Gap 13 BUN 18 Creatinine 1.1 Est GFR ( Amer) > 60 Est GFR (Non-Af Amer) > 60 Random Glucose 104 Calcium 9.4 Phosphorus 3.7 Magnesium 2.2 Total Bilirubin 0.6 AST 20 ALT 31 Alkaline Phosphatase 62 Total Protein 6.9 Albumin 3.9 Globulin 3.0 Albumin/Globulin Ratio 1.3
[2017-11-12 16:38] VITALS: RESP 20
--- NOTE | 2017-11-12 23:08 | CARD ---
APPROVED REPORT Date of service: 11/11/2017 EKG Measurement Heart [id number] [id number] <Conclusion> Sinus tachycardia Possible Left atrial enlargement T wave abnormality, consider lateral ischemia Prolonged QT Abnormal ECG
[2017-11-13 00:51] VITALS: O2SAT 100
[2017-11-13 08:15] VITALS: TEMP 97.4
[2017-11-13 08:26] LABS: BASO # 0.1 K/uL (0.0-0.2); BASO % 1.1 % (0.0-2.0); EOS % 0.4 % (0.0-4.0); HEMOGLOBIN 13.2 g/dL (12.0-18.0); LYMPH # 2.9 K/uL (1.0-4.3); LYMPH % 31.5 % (20.0-40.0); MEAN CELL VOLUME 83.4 fL (80.0-94.0); MEAN CORPUSCULAR HEMOGLOBIN 28.1 pg (27.0-31.0); MEAN CORPUSCULAR HGB CONC 33.6 g/dL (33.0-37.0); MEAN PLATELET VOLUME 8.2 fL (7.2-11.7); MONO # 0.5 K/uL (0.0-0.8); MONO % 5.8 % (0.0-10.0); NEUT # 5.7 K/uL (1.8-7.0); NEUT % 61.2 % (50.0-75.0); NRBC % 0.3 % (0.0-2.0); RBC 4.69 Mil/uL (4.40-5.90); RED CELL DISTRIBUTION WIDTH 16.2 % (11.5-14.5); WHITE BLOOD COUNT 9.3 K/uL (4.8-10.8)
[2017-11-13 08:43] LABS: ALB/GLOB RATIO 1.4 (1.0-2.1); ALT/SGPT 36 U/L (21-72); AST/SGOT 20 U/L (17-59); BLOOD UREA NITROGEN 16 mg/dL (9-20); CALCIUM 9.3 mg/dl (8.6-10.4); GFR AFRICAN-AMERICAN > 60; GFR NON-AFRICAN AMERICAN > 60
[2017-11-13 09:17] VITALS: BP 104/75
--- NOTE | 2017-11-13 09:33 | CP.PCM.DIS ---
Provider - Provider Date of Admission: 11/10/17 21:06 Attending physician: Amy Arreguin DO Primary care physician: resident clinic at [facility] Consults: cardiology (Dr. Puga) Time Spent in preparation of Discharge (in minutes): 45 Diagnosis - Discharge Diagnosis (1) Acute on chronic HFrEF (heart failure with reduced ejection fraction) Status: Acute Priority: High (2) Sinus tachycardia Status: Resolved Priority: Medium (3) Hypertension Status: Chronic Priority: Medium (4) Alcohol use disorder, severe, in early remission Status: Chronic Priority: Medium Hospital Course - Lab Results Lab Results: Most Recent Lab Values WBC 9.3 K/uL (4.8-10.8) 11/13/17 08:15 RBC 4.69 Mil/uL (4.40-5.90) 11/13/17 08:15 Hgb 13.2 g/dL (12.0-18.0) 11/13/17 08:15 Hct 39.1 % (35.0-51.0) 11/13/17 08:15 MCV 83.4 fL (80.0-94.0) 11/13/17 08:15 MCH 28.1 pg (27.0-31.0) 11/13/17 08:15 MCHC 33.6 g/dL (33.0-37.0) 11/13/17 08:15 RDW 16.2 % (11.5-14.5) H 11/13/17 08:15 Plt Count 341 K/uL (130-400) 11/13/17 08:15 MPV 8.2 fL (7.2-11.7) 11/13/17 08:15 Neut % (Auto) 61.2 % (50.0-75.0) 11/13/17 08:15 Lymph % (Auto) 31.5 % (20.0-40.0) 11/13/17 08:15 [place] % (Auto) 5.8 % (0.0-10.0) 11/13/17 08:15 Eos % (Auto) 0.4 % (0.0-4.0) 11/13/17 08:15 Baso % (Auto) 1.1 % (0.0-2.0) 11/13/17 08:15 Neut # (Auto) 5.7 K/uL (1.8-7.0) 11/13/17 08:15 Lymph # (Auto) 2.9 K/uL (1.0-4.3) 11/13/17 08:15 [place] # (Auto) 0.5 K/uL (0.0-0.8) 11/13/17 08:15 Eos # (Auto) 0.0 K/uL (0.0-0.7) 11/13/17 08:15 Baso # (Auto) 0.1 K/uL (0.0-0.2) 11/13/17 08:15 PT 15.8 SECONDS (9.7-12.2) H 11/10/17 20:07 INR 1.4 11/10/17 20:07 APTT 34 SECONDS (21-34) 11/10/17 20:07 D-Dimer, Quantitative < 200 ng/mlDDU (0-243) 11/10/17 20:07 pO2 56 mm/Hg (30-55) H 11/10/17 20:10 VBG pH 7.38 (7.32-7.43) 11/10/17 20:10 VBG pCO2 26 mmHg (40-60) L 11/10/17 20:10 VBG HCO3 18.4 mmol/L 11/10/17 20:10 VBG Total CO2 16.2 mmol/L (22-28) L 11/10/17 20:10 VBG O2 Sat (Calc) 92.0 % (40-65) H 11/10/17 20:10 VBG Base Excess -8.0 mmol/L (0.0-2.0) L 11/10/17 20:10 VBG Potassium 2.9 mmol/L (3.6-5.2) L 11/10/17 20:10 Sodium 147.0 mmol/l (132-148) 11/10/17 20:10 Chloride 119.0 mmol/L (98-107) H 11/10/17 20:10 Glucose 67 mg/dl (75-110) L 11/10/17 20:10 Lactate 0.9 mmol/L (0.7-2.1) 11/10/17 20:10 Sodium 140 mmol/L (132-148) 11/13/17 08:15 Potassium 4.5 mmol/L (3.6-5.2) 11/13/17 08:15 Chloride 107 mmol/L (98-107) 11/13/17 08:15 Carbon Dioxide 24 mmol/L (22-30) 11/13/17 08:15 Anion Gap 14 (10-20) 11/13/17 08:15 BUN 16 mg/dL (9-20) 11/13/17 08:15 Creatinine 1.1 mg/dL (0.8-1.5) 11/13/17 08:15 Est GFR ( Amer) > 60 11/13/17 08:15 Est GFR (Non-Af Amer) > 60 11/13/17 08:15 Random Glucose 94 mg/dL (75-110) 11/13/17 08:15 Calcium 9.3 mg/dl (8.6-10.4) 11/13/17 08:15 Phosphorus 4.3 mg/dL (2.5-4.5) 11/13/17 08:15 Magnesium 2.0 mg/dL (1.6-2.3) 11/13/17 08:15 Total Bilirubin 0.6 mg/dL (0.2-1.3) 11/13/17 08:15 AST 20 U/L (17-59) 11/13/17 08:15 ALT 36 U/L (21-72) 11/13/17 08:15 Alkaline Phosphatase 60 U/L (38-126) 11/13/17 08:15 Troponin I 0.0290 ng/mL (0.00-0.120) 11/11/17 07:43 NT-Pro-B Natriuret Pep 4050 pg/mL (0-450) H 11/10/17 20:07 Total Protein 6.7 g/dL (6.3-8.3) 11/13/17 08:15 Albumin 4.0 g/dL (3.5-5.0) 11/13/17 08:15 Globulin 2.8 gm/dL (2.2-3.9) 11/13/17 08:15 Albumin/Globulin Ratio 1.4 (1.0-2.1) 11/13/17 08:15 TSH 3rd Generation 0.64 mIU/L (0.46-4.68) 11/10/17 20:07 Venous Blood Potassium 2.9 mmol/L (3.6-5.2) L 11/10/17 20:10 Urine Color Yellow (YELLOW) 11/10/17 22:37 Urine Clarity Clear (Clear) 11/10/17 22:37 Urine pH 5.0 (5.0-8.0) 11/10/17 22:37 Ur Specific [place] 1.009 (1.003-1.030) 11/10/17 22:37 Urine Protein Negative mg/dL (NEGATIVE) 11/10/17 22:37 Urine Glucose (UA) Normal mg/dL (Normal) 11/10/17 22:37 Urine Ketones Negative mg/dL (NEGATIVE) 11/10/17 22:37 Urine Blood Negative (NEGATIVE) 11/10/17 22:37 Urine Nitrate Negative (NEGATIVE) 11/10/17 22:37 Urine Bilirubin Negative (NEGATIVE) 11/10/17 22:37 Urine Urobilinogen Normal mg/dL (0.2-1.0) 11/10/17 22:37 Ur Leukocyte Esterase Neg [place]/uL (Negative) 11/10/17 22:37 Ur Squamous Epith Cells < 1 /hpf (0-5) 11/10/17 22:37 Urine Opiates Screen Negative (NEGATIVE) 11/10/17 22:37 Urine Methadone Screen Negative (NEGATIVE) 11/10/17 22:37 Ur Barbiturates Screen Negative (NEGATIVE) 11/10/17 22:37 Ur Phencyclidine Scrn Negative (NEGATIVE) 11/10/17 22:37 Ur Amphetamines Screen Negative (NEGATIVE) 11/10/17 22:37 U Benzodiazepines Scrn Negative (NEGATIVE) 11/10/17 22:37 U Oth Cocaine Metabols Negative (NEGATIVE) 11/10/17 22:37 U Cannabinoids Screen Negative (NEGATIVE) 11/10/17 22:37 - Hospital Course Hospital Course: Patient is a 37 year old male, with PMHx of CHF,HTN, presents for shortness of breath. He states this has progressed over the last month. The patient states he is barely able to sleep and is not able to lie flat or he will become short of breath. Pt uses 4 pillows and a comforter to sleep. He states he feels like he has chest tightness. Pt has not been compliant with following up at [facility] and was unable to obtain a refill for his medications and has not been taking them. He states he has not refilled his medications for the past 2 weeks- he typically gets all of his prescriptions from his pinion and wheel truer, Dr. Espinal. He reprots on a good day, he is able to walk 8-10 blocks without any issues. However, recently, he has barely been able to walk 1-2 blocks without getting severely short of breath. He also endorses occasional heart palpitations even at rest. He denies leg edema. Patient denies fever/chills, headache, changes in vision, palpitations, diaphoresis. On admission, CXR was consistent with CHF- cardiomegaly, pulmonary congestion. Patient was placed on fluid and sodium restriction. Patient was also placed back on his home medications for CHF. Throughout his stay, he was losing water weight appropriately. Patient utilized O2 2L via NC during admission for comfort. PT was consulted and a 6 minute walk test was completed. Patient did not desaturate and did not qualify for supplemental O2 at home. Patient was initially tachycardic (110s-120s). His HR remained in sinus rhythm and gradually decreased to the 90s. His BP was well controlled. Cardiology, Dr. Puga, was consulted, and he cleared the patient for discharge. At the time of discharge, patient was comfortable breathing with O2. He denied SOB and cough. Remaining abstinent from alcohol was discussed with the patient. Medication and Lifevest compliance was repeatedly stressed to the patient. He acknowledged understanding and stated he would follow-up with the resident clinic and Dr. Espinal on Nov 22. Discharge Exam - Head Exam Head Exam: ATRAUMATIC, NORMAL INSPECTION, NORMOCEPHALIC - Eye Exam Eye Exam: EOMI, Normal appearance - ENT Exam ENT Exam: Mucous Membranes Moist, Normal Exam - Neck Exam Neck exam: Normal Inspection - Respiratory Exam Respiratory Exam: Clear to PA & Lateral, NORMAL BREATHING PATTERN, UNREMARKABLE - Cardiovascular Exam Cardiovascular Exam: REGULAR RHYTHM, +S1, +S2 - GI/Abdominal Exam GI & Abdominal Exam: Normal Bowel Sounds, Soft, Unremarkable - Rectal Exam Rectal Exam: Deferred - Extremities Exam Extremities exam: normal inspection, pedal pulses present Additional comments: no edema - Back Exam Back exam: NORMAL INSPECTION - Neurological Exam Neurological exam: Alert, CN II-XII Intact, Normal Gait, Oriented x3 - Psychiatric Exam Psychiatric exam: Normal Affect, Normal Mood - Skin Skin Exam: Dry, Intact, Normal Color, Warm Discharge Plan - Discharge Medications Prescriptions: Aspirin [Aspirin Chewable] 81 mg PO DAILY #30 chew Carvedilol [Coreg] 3.125 mg PO BID #60 tab Furosemide [Lasix] 20 mg PO DAILY #30 tab Lisinopril [Zestril] 20 mg PO DAILY #30 tab Rosuvastatin Calcium [Crestor] 5 mg PO QPM #30 tab Spironolactone [Aldactone] 25 mg PO DAILY #30 tab - Follow Up Plan Condition: IMPROVED Disposition: HOME/ ROUTINE Patient education suggested?: Yes Instructions: Heart Healthy Diet, Heart Failure, Adult (DC), Shortness of Breath (Dyspnea) (DC), Aspirin, Carvedilol, Furosemide, Lisinopril, Rosuvastatin , Spironolactone Additional Instructions: Patient is cleared for discharge home as per Dr. Arreguin. He will follow-up at the [facility] on November 22 at 1 PM ). He will also follow-up with his pinion and wheel truer, Dr. Espinal, on November 22 at 2 PM. The importance of medication and LifeVest compliance was stressed with the patient. It is important to take all medications daily, as prescribed, and to wear the LifeVest daily until AICD is placed. Patient was also encouraged to not drink alcohol and stop smoking. He will be discharged with a one month's supply of the following prescriptions: Aspirin 81 mg- take one by mouth once daily Lasix 20 mg- take one by mouth once daily Lisinopril 20 mg- take one by mouth once daily Spironolactone 25 mg- take one by mouth once daily Coreg 3.125 mg-take one by mouth twice per day Crestor 5 mg- take one by mouth once nightly If symptoms recur or worsen, patient is to return to the ED. Patient understands and agrees. Referrals: [facility] at [facility] [Outside] Monty Espinal MD [Staff Provider] -
[2017-11-13] MEDS ORDERED: Pneumococcal 23-Valent Vaccine IM ONE (10:00)
[2017-11-13] MEDS ORDERED: Multiple Vitamins Tab PO SCH (10:00)
[2017-11-13 12:56] VITALS: PULSE 99
--- NOTE | 2017-11-13 14:29 | PCM.HF ---
Heart Failure Core Measure - Heart Failure Ejection Fraction: Less Than 40 % DONNA Inhibitor Prescribed: Yes Beta-Bradley Prescribed: Carvedilol Angiotensin II Receptor Bradley Prescribed: No Contraindication/Reason for not providing: ON DONNA AnticoagulationTherapy for Atrial Fibrillation/Atrialflutter: No Contraindication/Reason for not providing: A FIB Aldosterone Antagonist Prescribed: No Contraindication/Reason for not providing: HAS LIFE VEST Hydralazine Nitrate Prescribed: No Contraindication/Reason for not providing: HAS LIFE VEST Implantable Cardioverter Defibrillator Therapy: No Contraindication/Reason for not providing: HAS LIFE VEST Cardiac Resynchronization Therapy Prescribed: Yes Contraindication/Reason for not providing: HAS LIFE VEST - Follow up Will be discharged to: Home Follow Up Date (must be within 7 days from discharge): 11/19/17 Follow Up Time: 09:00
== END 2017-11-13 13:51 | disposition home or self-care (01) | DRG 127 ==
LOC: C.ER 18:42 → C.9E 21:06 → C.6T 22:51
PROVIDERS: ADMIT Hospitalist; ATTEND Hospitalist
DX: I11.0 Hypertensive heart disease with heart failure (principal); I50.43 Acute on chronic combined systolic (congestive) and diastolic (congestive) heart failure; I42.0 Dilated cardiomyopathy; R00.0 Tachycardia, unspecified; R06.00 Dyspnea, unspecified; F10.21 Alcohol dependence, in remission; F17.210 Nicotine dependence, cigarettes, uncomplicated; Z91.14 Patient's other noncompliance with medication regimen; Z91.19 Patient's noncompliance with other medical treatment and regimen; Z79.82 Long term (current) use of aspirin

== ENCOUNTER 2018-02-08 09:40 | Observation (INO) | payer OTHER ==
[2018-02-08 09:40] VITALS: BMI 30.2
[2018-02-08 10:41] LABS: BASO # 0.1 K/uL (0.0-0.2); BASO % 1.1 % (0.0-2.0); EOS % 0.2 % (0.0-4.0); HEMOGLOBIN 13.1 g/dL (12.0-18.0); LYMPH # 2.8 K/uL (1.0-4.3); LYMPH % 26.6 % (20.0-40.0); MEAN CORPUSCULAR HEMOGLOBIN 28.8 pg (27.0-31.0); MEAN CORPUSCULAR HGB CONC 32.7 g/dL (33.0-37.0); MEAN PLATELET VOLUME 7.8 fL (7.2-11.7); MONO # 0.6 K/uL (0.0-0.8); NEUT # 6.9 K/uL (1.8-7.0); NEUT % 66.1 % (50.0-75.0); NRBC % 0.1 % (0.0-2.0); RBC 4.55 Mil/uL (4.40-5.90); RED CELL DISTRIBUTION WIDTH 15.2 % (11.5-14.5); WHITE BLOOD COUNT 10.4 K/uL (4.8-10.8)
[2018-02-08 10:44] LABS: MEAN CELL VOLUME 88.1 fL (80.0-94.0)
[2018-02-08 10:50] LABS: INR 1.7
--- NOTE | 2018-02-08 11:01 | RAD ---
Date of service: 02/08/2018 HISTORY: Shortness of breath COMPARISON: 11/10/2017. TECHNIQUE: Chest PA and lateral FINDINGS: LINES AND TUBES: None. LUNG AND PLEURA: The lungs are well inflated and clear. There is mild pulmonary venous congestion. No pleural effusion or pneumothorax. HEART AND MEDIASTINUM: There is severe cardiomegaly. No aortic atherosclerotic calcification present. The hilar and mediastinal contours are within normal limits. SKELETAL STRUCTURES: The bony structures are within normal limits for the patient's age. VISUALIZED UPPER ABDOMEN: Normal. OTHER FINDINGS: None. IMPRESSION: No active pulmonary disease. Severe cardiomegaly and mild pulmonary venous congestion.
[2018-02-08 11:13] LABS: SQUAMOUS EPITHIAL 2 /hpf (0-5); URINE BILIRUBIN 1+ (NEGATIVE); URINE BLOOD 1+ (NEGATIVE); URINE CLARITY Hazy (Clear); URINE COLOR Amber (YELLOW); URINE GLUCOSE (UA) NORMAL (Normal); URINE LEUKOCYTE ESTERASE NEG Leu/uL (Negative); URINE PROTEIN 2+ mg/dL (NEGATIVE)
[2018-02-08 11:24] LABS: ALB/GLOB RATIO 1.5 (1.0-2.1); ALBUMIN 4.1 g/dL (3.5-5.0); ALT/SGPT 40 U/L (21-72); AST/SGOT 37 U/L (17-59); BLOOD UREA NITROGEN 15 mg/dL (9-20); CALCIUM 9.3 mg/dl (8.6-10.4); GFR NON-AFRICAN AMERICAN > 60
--- NOTE | 2018-02-08 11:31 | C.PDOC ---
History Of Present Illness 37-year-old male with a history of CHF and hypertension presents to the ED for evaluation of shortness of breath, cough, and intermittent chest pain for 7 days. The patient notes prior visit to the clinic where he was evaluated by the transformer coil winder on 12/06/17, states he has occasional brown sputum and his shortness of breath is worse when lying down. Admits he is minimally compliant with medications. Denies fever, chills, nausea, vomiting and any other associated symptoms. Time Seen by Provider: 02/08/18 10:04 Chief Complaint (Nursing): Chest Pain History Per: Patient History/Exam Limitations: no limitations Onset/Duration Of Symptoms: Days Current Symptoms Are (Timing): Still Present Past Medical History Reviewed: Historical Data, Nursing Documentation, Vital Signs Vital Signs: Last Vital Signs Temp 98.1 F 02/08/18 09:52 Pulse 119 H 02/08/18 10:36 Resp 22 02/08/18 10:36 BP 130/95 H 02/08/18 10:36 Pulse Ox 100 02/08/18 10:36 - Medical History PMH: CHF, Gall Bladder Disease Denies: Chronic Kidney Disease - [facility] Procedures DETOXIFICATION SERVICES FOR SUBSTANCE ABUSE TREATMENT (08/19/17) Family History: States: Unknown Family Hx - Social History Hx Alcohol Use: No Hx Substance Use: No - Immunization History Hx Tetanus Toxoid Vaccination: No Hx Influenza Vaccination: No Hx Pneumococcal Vaccination: No Review Of Systems Constitutional: Negative for: Fever, Chills Cardiovascular: Positive for: Chest Pain Respiratory: Positive for: Cough (with brown sputum. ), Shortness of Breath (worse when lying down. ) Gastrointestinal: Negative for: Nausea, Vomiting Physical Exam - Physical Exam Appears: Well, Non-toxic Skin: Normal Color, Warm, Dry Head: Atraumatic, Normacephalic Eye(s): bilateral: Normal Inspection Oral Mucosa: Moist Neck: Normal ROM, Supple Chest: Symmetrical, No Deformity Cardiovascular: Rhythm Regular, No Murmur, Other (tachycardic. ) Respiratory: Normal Breath Sounds, No Rales, No Rhonchi, No Wheezing Gastrointestinal/Abdominal: Normal Exam, Soft, No Tenderness Extremity: No Tenderness, No Pedal Edema, No Calf Tenderness, Capillary Refill (less than 2 seconds.), No Swelling Neurological/Psych: Oriented x3, Normal Speech, Normal Motor, Normal Sensation, Normal Reflexes ED Course And Treatment - Laboratory Results Result Diagrams: 02/08/18 10:38 02/08/18 10:38 ECG Rhythm: Sinus Tachycardia Interpretation Of ECG: --Right atrial enlargement. --Nonspecific T wave changes. Rate From EC O2 Sat by Pulse Oximetry: 100 (RA) Pulse Ox Interpretation: Normal - Other Rad CXR X-Ray: Viewed By Me, Read By Radiologist Interpretation: FINDINGS: LINES AND TUBES: None. LUNG AND PLEURA: The lungs are well inflated and clear. There is mild pulmonary venous congestion. No pleural effusion or pneumothorax. HEART AND MEDIASTINUM: There is severe cardiomegaly. No aortic atherosclerotic calcification present. The hilar and mediastinal contours are within normal limits. SKELETAL STRUCTURES: The bony structures are within normal limits for the patient's age. VISUALIZED UPPER ABDOMEN: Normal. OTHER FINDINGS: None. IMPRESSION: No active pulmonary disease. Severe cardiomegaly and mild pulmonary venous congestion. Medical Decision Making Medical Decision Making: Plan: -EKG -Blood sent. -CXR -Urinalysis Disposition - Disposition Forms: [place] (Togolese) - PA / PLUMBING MANAGER / Resident Statement MD/DO has reviewed & agrees with the documentation as recorded. - Scribe Statement The provider has reviewed the documentation as recorded by the Scribe (Kay Allen) All medical record entries made by the Scribe were at my direction and personally dictated by me. I have reviewed the chart and agree that the record accurately reflects my personal performance of the history, physical exam, medical decision making, and the department course for this patient. I have also personally directed, reviewed, and agree with the discharge instructions and disposition.
[2018-02-08 11:34] LABS: B-TYPE NATRIURETIC PEPTIDE 4250 pg/mL (0-450)
--- NOTE | 2018-02-08 11:42 | C.PDOC ---
History Of Present Illness 37-year-old male with a history of CHF and hypertension presents to the ED for evaluation of shortness of breath, cough, and intermittent chest pain for 3 days. c/o occasional brown sputum and shortness of breath is worse when lying down. Admits he is minimally compliant with medications. Denies fever, chills, nausea, vomiting and any other associated symptoms. The patient notes prior visit to the clinic where he was evaluated by the teletypewriter operator on 12/06/17, states he doesn't have life vest anymore because company picked it up from him. Time Seen by Provider: 02/08/18 10:04 Chief Complaint (Nursing): Chest Pain History Per: Patient History/Exam Limitations: no limitations Onset/Duration Of Symptoms: Days Current Symptoms Are (Timing): Still Present Past Medical History Reviewed: Historical Data, Nursing Documentation, Vital Signs Vital Signs: Last Vital Signs Temp 98.1 F 02/08/18 09:52 Pulse 119 H 02/08/18 10:36 Resp 22 02/08/18 10:36 BP 130/95 H 02/08/18 10:36 Pulse Ox 100 02/08/18 10:36 - Medical History PMH: CHF, Gall Bladder Disease Denies: Chronic Kidney Disease - [facility] Procedures DETOXIFICATION SERVICES FOR SUBSTANCE ABUSE TREATMENT (08/19/17) Family History: States: Unknown Family Hx - Social History Hx Alcohol Use: No Hx Substance Use: No - Immunization History Hx Tetanus Toxoid Vaccination: No Hx Influenza Vaccination: No Hx Pneumococcal Vaccination: No Review Of Systems Constitutional: Negative for: Fever, Chills Eyes: Negative for: Pain, Vision Change ENT: Negative for: Mouth Pain, Throat Pain Cardiovascular: Positive for: Chest Pain. Negative for: Palpitations Respiratory: Positive for: Cough (with brown sputum.), Shortness of Breath (worse when lying down. ) Gastrointestinal: Negative for: Nausea, Vomiting, Abdominal Pain Genitourinary: Negative for: Dysuria, Frequency Skin: Negative for: Rash Neurological: Negative for: Weakness, Numbness Physical Exam - Physical Exam Appears: Well, Non-toxic Skin: Normal Color, Warm, Dry Head: Atraumatic, Normacephalic Eye(s): bilateral: Normal Inspection Oral Mucosa: Moist Neck: Normal ROM, Supple Chest: Symmetrical, No Deformity Cardiovascular: No Murmur, Other (tachycardic.) Respiratory: Normal Breath Sounds, No Rales, No Rhonchi, No Wheezing Gastrointestinal/Abdominal: Normal Exam, Soft, No Tenderness Extremity: No Pedal Edema, No Calf Tenderness, Capillary Refill (less than 2 seconds.), No Deformity, No Swelling Neurological/Psych: Oriented x3, Normal Speech (speaking full sentences.) ED Course And Treatment - Laboratory Results Result Diagrams: 02/08/18 10:38 02/08/18 10:38 ECG Rhythm: Sinus Tachycardia Interpretation Of ECG: Sinus tachycardia. Right atrial enlargement. Rate From EC O2 Sat by Pulse Oximetry: 100 (RA) Pulse Ox Interpretation: Normal - Other Rad CXR X-Ray: Viewed By Me, Read By Radiologist Interpretation: FINDINGS: LINES AND TUBES: None. LUNG AND PLEURA: The lungs are well inflated and clear. There is mild pulmonary venous congestion. No pleural effusion or pneumothorax. HEART AND MEDIASTINUM: There is severe ca rdiomegaly. No aortic atherosclerotic calcification present. The hilar and mediastinal contours are within normal limits. SKELETAL STRUCTURES: The bony structures are within normal limits for the patient's age. VISUALIZED UPPER ABDOMEN: Normal. OTHER FINDINGS: None. IMPRESSION: No active pulmonary disease. Severe cardiomegaly and mild pulmonary venous congestion. Medical Decision Making Medical Decision Making: Plan: -EKG -Blood sent. -CXR -Urinalysis [address] Sharma; will admit to her service, request cta chest prior to going upstairs. Disposition Discussed With : Guzman Sharma Doctor Will See Patient In The: Hospital - Disposition Disposition: HOSPITALIZED Disposition Time: 12:59 Condition: STABLE - Clinical Impression Clinical Impression: Congestive heart failure, Chest pain, Tachycardia - PA / NOVELTY CANDY MAKER / Resident Statement MD/DO has reviewed & agrees with the documentation as recorded. - Scribe Statement The provider has reviewed the documentation as recorded by the Scribe (Kay Allen) All medical record entries made by the Scribe were at my direction and personally dictated by me. I have reviewed the chart and agree that the record accurately reflects my personal performance of the history, physical exam, medical decision making, and the department course for this patient. I have also personally directed, reviewed, and agree with the discharge instructions and disposition.
[2018-02-08 11:49] LABS: BARBITURATES, UR NEGATIVE (NEGATIVE); BENZODIAZEPINES, UR NEGATIVE (NEGATIVE); OPIATES, UR NEGATIVE (NEGATIVE); PHENCYCLIDINE, UR NEGATIVE (NEGATIVE)
[2018-02-08] MEDS ORDERED: Iodixanol 320 MG/ML 100 ML BOTTLE IV ONE (12:47)
--- NOTE | 2018-02-08 13:32 | CP.PCM.HP ---
<GerantonietaReinier - Last Filed: 02/08/18 15:11> History of Present Illness - History of Present Illness History of Present Illness: PGY-[address] Sharma Patient is a 37 year old male with PMHx CHF who presents to [facility] ED with worsening shortness of breath and sub-xiphoid chest pain. Patient states that he is chronically short of breath and has been hospitalized in the past for CHF exacerbations. Over the past 6-7 days he has had worsening shortness of breath, worse lying flat, with associated non-radiating sub-xiphoid pressure, as well as a mostly dry cough with mild sputum production. He also complains of nausea, and vomited yesterday. Patient follows in the [facility] clinic and is unsure the name of the assembler wire mesh gate he has seen the past. He states he takes his meds "not all of the time". He has chronic CHF with most recent echo showing LV global hypokinesis with EF 15%. He was prescribed a life vest to wear at all times, but states that he was told by the life vest [employer] that he needed to return the life vest because the "right doctor didn't sign off". He states that from he was diagnosed with a heart murmur, and was not permitted to play sports when he was younger. He also admits that both his father and grandfather had CHF and his father from heart complications at age 48. Patient says he recently quit smoking, but has smoked for approximately 20 years, 2 packs per day. Patient states that he no longer drinks alcohol, and used to drink once per week. Surgical Hx: None Medical Hx: CHF, Cholecystitis, "heart murmur" Medications: ASA 81 PO daily, Lasix 20 mg PO daily, Lisinopril 20 mg PO daily, Spironolactone 25 mg PO daily, Coreg 3.125 mg PO daily, Crestor 5 mg PO HS Allergies: NKA Social: Recently quit smoking, but smoked for approximately 20 years, 2 packs per day. Patient states he no longer drinks alcohol, used to drink once per week. Unemployed, lives with family, supported financially by his Aunt . Hospitalizations: Multiple hospitalizations for CHF, most recently July 2017. Worked up during same hospitalization for cholecystitis, but did not have gallbladder removed. Family Hx: Father and Grandfather - CHF, father due to complications at age 48 PMD: [facility] Insurance: [facility] Care Code: Full Code Emergency Contact: Aunt Present on Admission - Present on Admission Any Indicators Present on Admission: No Review of Systems - Constitutional Constitutional: absent: Fatigue, Fever - EENT Eyes: absent: Blurred Vision, Change in Vision Nose/Mouth/Throat: absent: Nasal Congestion, Nasal Discharge - Cardiovascular Cardiovascular: Chest Pain (non-radiating sub-xiphoid pain) - Respiratory Respiratory: Cough (Mostly dry cough, with some white sputum), Dyspnea, Dyspnea on Exertion Additional comments: SOB at rest, becomes very short of breath walking even short distances. He is very limited in ambulation due to shortness of breath. - Gastrointestinal Gastrointestinal: Abdominal Pain (Sub-xiphoid pain as stated). absent: Constipation, Diarrhea - Genitourinary Genitourinary: absent: Change in Urinary Stream, Dysuria, Urinary Hesitance, Urinary Urgency - Musculoskeletal Musculoskeletal: absent: Back Pain, Neck Pain - Neurological Neurological: absent: Dizziness, Headaches, Paresthesias - Psychiatric Psychiatric: absent: Anxiety, Depression - Endocrine Endocrine: absent: Palpitations, Polyuria Past Patient History - Past Medical History & Family History Past Medical History?: Yes - Past Social History Smoking Status: Former Smoker - CARDIAC Hx Congestive Heart Failure: Yes - PULMONARY Hx Respiratory Disorders: No - NEUROLOGICAL Hx Neurological Disorder: No - HEENT Hx HEENT Problems: No - RENAL Hx Chronic Kidney Disease: No - ENDOCRINE/METABOLIC Hx Endocrine Disorders: No - HEMATOLOGICAL/ONCOLOGICAL Hx Blood Disorders: No - INTEGUMENTARY Hx Dermatological Problems: No - MUSCULOSKELETAL/RHEUMATOLOGICAL Hx Musculoskeletal Disorders: No Hx Falls: No - GASTROINTESTINAL Hx Gall Bladder Disease: Yes - GENITOURINARY/GYNECOLOGICAL Hx Genitourinary Disorders: No - PSYCHIATRIC Hx Substance Use: No - SURGICAL HISTORY Hx Surgeries: No - ANESTHESIA Hx Anesthesia: No Hx Anesthesia Reactions: No Meds Allergies/Adverse Reactions: Allergies Allergy/AdvReac Type Severity Reaction Status Date / Time No Known Allergies Allergy Verified 02/08/18 09:55 Physical Exam - Constitutional Appears: No Acute Distress - Head Exam Head Exam: ATRAUMATIC, NORMAL INSPECTION - Eye Exam Eye Exam: EOMI, Normal appearance Pupil Exam: PERRL - ENT Exam ENT Exam: Mucous Membranes Moist - Respiratory Exam Respiratory Exam: Rhonchi Additional comments: Lungs sound more ronchorous than rales/crackles. Breath sounds decreased throughout. - Cardiovascular Exam Cardiovascular Exam: Tachycardia, REGULAR RHYTHM, +S1, +S2 - GI/Abdominal Exam GI & Abdominal Exam: Distended, Normal Bowel Sounds, Soft, Tenderness (+Subxiphoid tenderness). absent: Rebound - Extremities Exam Extremities exam: Positive for: pedal pulses present. Negative for: pedal edema Additional comments: No pedal edema appreciated - Neurological Exam Neurological exam: Alert, CN II-XII Intact, Oriented x3 - Psychiatric Exam Psychiatric exam: Normal Affect, Normal Mood - Skin Skin Exam: Dry, Intact, Normal Color, Warm Results - Vital Signs Recent Vital Signs: Last Vital Signs Temp 98.1 F 02/08/18 09:52 Pulse 125 H 02/08/18 12:58 Resp 18 02/08/18 12:58 BP 130/99 H 02/08/18 12:58 Pulse Ox 100 02/08/18 13:00 - Labs Result Diagrams: 02/08/18 10:38 02/08/18 10:38 Labs: Laboratory Results - last 24 hr 02/08/18 02/08/18 02/08/18 10:38 10:38 10:38 WBC 10.4 RBC 4.55 Hgb 13.1 Hct 40.1 MCV 88.1 D MCH 28.8 MCHC 32.7 L RDW 15.2 H Plt Count 310 MPV 7.8 Neut % (Auto) 66.1 Lymph % (Auto) 26.6 Yolo % (Auto) 6.0 Eos % (Auto) 0.2 Baso % (Auto) 1.1 Neut # (Auto) 6.9 Lymph # (Auto) 2.8 Yolo # (Auto) 0.6 Eos # (Auto) 0.0 Baso # (Auto) 0.1 PT 19.0 H INR 1.7 APTT 34 D-Dimer, Quantitative 433 H Sodium 145 Potassium 4.2 Chloride 112 H Carbon Dioxide 20 L Anion Gap 17 BUN 15 Creatinine 1.2 Est GFR ( Amer) > 60 Est GFR (Non-Af Amer) > 60 Random Glucose 97 Calcium 9.3 Total Bilirubin 0.7 AST 37 ALT 40 Alkaline Phosphatase 58 Troponin I 0.0390 NT-Pro-B Natriuret Pep 4250 H Total Protein 6.9 Albumin 4.1 Globulin 2.8 Albumin/Globulin Ratio 1.5 Urine Color Urine Clarity Urine pH Ur Specific Landenberg Urine Protein Urine Glucose (UA) Urine Ketones Urine Blood Urine Nitrate Urine Bilirubin Urine Urobilinogen Ur Leukocyte Esterase Urine WBC (Auto) Urine RBC (Auto) Ur Squamous Epith Cells Urine Opiates Screen Urine Methadone Screen Ur Barbiturates Screen Ur Phencyclidine Scrn Ur Amphetamines Screen U Benzodiazepines Scrn U Oth Cocaine Metabols U Cannabinoids Screen Alcohol, Quantitative < 10 02/08/18 02/08/18 10:58 10:58 WBC RBC Hgb Hct MCV MCH MCHC RDW Plt Count MPV Neut % (Auto) Lymph % (Auto) Yolo % (Auto) Eos % (Auto) Baso % (Auto) Neut # (Auto) Lymph # (Auto) Yolo # (Auto) Eos # (Auto) Baso # (Auto) PT INR APTT D-Dimer, Quantitative Sodium Potassium Chloride Carbon Dioxide Anion Gap BUN Creatinine Est GFR ( Amer) Est GFR (Non-Af Amer) Random Glucose Calcium Total Bilirubin AST ALT Alkaline Phosphatase Troponin I NT-Pro-B Natriuret Pep Total Protein Albumin Globulin Albumin/Globulin Ratio Urine Color Ibeth Urine Clarity Hazy Urine pH 5.0 Ur Specific Landenberg 1.038 H Urine Protein 2+ H Urine Glucose (UA) Normal Urine Ketones Negative Urine Blood 1+ H Urine Nitrate Negative Urine Bilirubin 1+ H Urine Urobilinogen 2.0 Ur Leukocyte Esterase Neg Urine WBC (Auto) 5 Urine RBC (Auto) 13 H Ur Squamous Epith Cells 2 Urine Opiates Screen Negative Urine Methadone Screen Negative Ur Barbiturates Screen Negative Ur Phencyclidine Scrn Negative Ur Amphetamines Screen Negative U Benzodiazepines Scrn Negative U Oth Cocaine Metabols Negative U Cannabinoids Screen Negative Alcohol, Quantitative Assessment & Plan - Assessment and Plan (Free Text) Assessment: 1) Acute on Chronic CHF -Admitted to telemetry -Echo 08/19/2017: LV moderately dilated. LV diastolic function is normal. No LV thrombus. LV filling pressure is elevated. Left atrium and volume is moderately dilated. Mitral regurgitation is mild. Mild to moderate tricuspid regurgitation. Right ventricular systolic pressure is estimated 45-50 mmHG. LV global hypkinesis with EF 15% -Patient stated he may have had a recent cath at [facility], however upon contacting [facility], they have no record of this patient ever having a cardiac cath -Cardio consulted, Dr. Chacko. Help appreciated. -Repeat Echo -Initial troponins negative, f/u second trops 16:30 -EKG no changes from previous EKG -Strict I and Os -Daily weights -Patient unsure of home meds, meds restarted from MR discharge. --ASA 81 mg PO daily --Coreg 3.125 mg PO BID --Lasix 40 mg IVP BID --Crestor 5 mg PO HS 2) PPx -Heparin 5000 U SC Q8 <Guzman Sharma - Last Filed: 02/08/18 16:15> Results - Vital Signs Recent Vital Signs: Last Vital Signs Temp 97.4 F L 02/08/18 15:40 Pulse 112 H 02/08/18 15:40 Resp 20 02/08/18 15:40 BP 119/92 H 02/08/18 15:40 Pulse Ox 100 02/08/18 15:40 - Labs Result Diagrams: 02/08/18 10:38 02/08/18 10:38 Labs: Laboratory Results - last 24 hr 02/08/18 02/08/18 02/08/18 10:38 10:38 10:38 WBC 10.4 RBC 4.55 Hgb 13.1 Hct 40.1 MCV 88.1 D MCH 28.8 MCHC 32.7 L RDW 15.2 H Plt Count 310 MPV 7.8 Neut % (Auto) 66.1 Lymph % (Auto) 26.6 Yolo % (Auto) 6.0 Eos % (Auto) 0.2 Baso % (Auto) 1.1 Neut # (Auto) 6.9 Lymph # (Auto) 2.8 Yolo # (Auto) 0.6 Eos # (Auto) 0.0 Baso # (Auto) 0.1 PT 19.0 H INR 1.7 APTT 34 D-Dimer, Quantitative 433 H Sodium 145 Potassium 4.2 Chloride 112 H Carbon Dioxide 20 L Anion Gap 17 BUN 15 Creatinine 1.2 Est GFR ( Amer) > 60 Est GFR (Non-Af Amer) > 60 Random Glucose 97 Calcium 9.3 Total Bilirubin 0.7 AST 37 ALT 40 Alkaline Phosphatase 58 Troponin I 0.0390 NT-Pro-B Natriuret Pep 4250 H Total Protein 6.9 Albumin 4.1 Globulin 2.8 Albumin/Globulin Ratio 1.5 Urine Color Urine Clarity Urine pH Ur Specific Landenberg Urine Protein Urine Glucose (UA) Urine Ketones Urine Blood Urine Nitrate Urine Bilirubin Urine Urobilinogen Ur Leukocyte Esterase Urine WBC (Auto) Urine RBC (Auto) Ur Squamous Epith Cells Urine Opiates Screen Urine Methadone Screen Ur Barbiturates Screen Ur Phencyclidine Scrn Ur Amphetamines Screen U Benzodiazepines Scrn U Oth Cocaine Metabols U Cannabinoids Screen Alcohol, Quantitative < 10 02/08/18 02/08/18 10:58 10:58 WBC RBC Hgb Hct MCV MCH MCHC RDW Plt Count MPV Neut % (Auto) Lymph % (Auto) Yolo % (Auto) Eos % (Auto) Baso % (Auto) Neut # (Auto) Lymph # (Auto) Yolo # (Auto) Eos # (Auto) Baso # (Auto) PT INR APTT D-Dimer, Quantitative Sodium Potassium Chloride Carbon Dioxide Anion Gap BUN Creatinine Est GFR ( Amer) Est GFR (Non-Af Amer) Random Glucose Calcium Total Bilirubin AST ALT Alkaline Phosphatase Troponin I NT-Pro-B Natriuret Pep Total Protein Albumin Globulin Albumin/Globulin Ratio Urine Color Ibeth Urine Clarity Hazy Urine pH 5.0 Ur Specific Landenberg 1.038 H Urine Protein 2+ H Urine Glucose (UA) Normal Urine Ketones Negative Urine Blood 1+ H Urine Nitrate Negative Urine Bilirubin 1+ H Urine Urobilinogen 2.0 Ur Leukocyte Esterase Neg Urine WBC (Auto) 5 Urine RBC (Auto) 13 H Ur Squamous Epith Cells 2 Urine Opiates Screen Negative Urine Methadone Screen Negative Ur Barbiturates Screen Negative Ur Phencyclidine Scrn Negative Ur Amphetamines Screen Negative U Benzodiazepines Scrn Negative U Oth Cocaine Metabols Negative U Cannabinoids Screen Negative Alcohol, Quantitative Attending/Attestation - Attestation I have personally seen and examined this patient.: Yes I have fully participated in the care of the patient.: Yes I have reviewed all pertinent clinical information: Yes Notes (Text): seen and examined by me Patient came for sob.Has sob on minimal exertion/Uncable to walk to room to bathroom patient is noncompliance with his oral medication. Occasionally takes alcohol,state suzette he stop smoking 1.Acute on chronic nonischemic heart failure. 2.Noncompliance with meds,follow our clinic 3.h/o alcohol abuse,smoker continue home meds coreg,lisinopril and statin. Start on IV lasix repeat Echo cardiology consult DR Chacko patient was not on anticoa at home. Patient was on life vest ,it was taken away by company as per the pt assessment and the plan discussed withe resident and i agree with the documentation
--- NOTE | 2018-02-08 13:42 | CT ---
Date of service: 02/08/2018 PROCEDURE: CT Chest with contrast (Pulmonary Angiogram) HISTORY: Chest pain,, sob, elevted d dimer COMPARISON: None available. TECHNIQUE: Axial computed tomography images were obtained of the chest in the pulmonary arterial phase of enhancement. Coronal and sagittal reformatted images were created and reviewed. Intravenous contrast dose: 100 cc Visipaque 320 Radiation dose: Total exam DLP = 634.48 mGy-cm. This CT exam was performed using one or more of the following dose reduction techniques: Automated exposure control, adjustment of the mA and/or kV according to patient size, and/or use of iterative reconstruction technique.. FINDINGS: PULMONARY ARTERIES: The visualized pulmonary trunk, right and left main, lobar, segmental and proximal subsegmental branches of the pulmonary arteries appear well opacified with no definitive filling defects seen to suggest acute central pulmonary embolus. The pulmonary trunk measures approximately 3.3 cm.. Note made of a moderate right reflux of contrast into the IVC and hepatic veins; rule out underlying pulmonary arterial hypertension.. Right heart strain not excluded. Clinical correlation recommended.. AORTA: No acute findings. No thoracic aortic aneurysm. Ascending thoracic aorta measures approximately 3.3 cm and descending thoracic aorta measures approximately 2.2 cm. No significant aortic atherosclerotic calcification or mural plaque present. LUNGS: There is a cluster of tiny cystic foci with surrounding on atelectasis right lower lobe bordering the pleural surface. Similar smaller focus seen just medial and superior in location small approximately 3.5 mm nodule also noted superior aspect right lower lobe along the posterolateral convexity, adjacent to but not contiguous with the pleural surface. The minor atelectasis and/or scarring changes also seen in the right and left upper lobes left greater than right.. Mild atelectasis and/or scarring also noted in the anteromedial left lung base. Mild passive atelectasis also noted in the right lung base adjacent to the aforementioned small effusion. PLEURAL SPACES: Small right-sided effusion. No evidence of pneumothorax. HEART: Heart is moderately enlarged... No cardiomegaly. No significant pericardial effusion. LYMPH NODES: Multiple small nonspecific mediastinal lymph nodes are present.. Few small bilateral hilar lymph nodes are also felt be present... Trachea midline and patent with no large endoluminal lesions... There is a small hiatal hernia. BONES, CHEST WALL: No acute compression fractures no retropulsed fragments seen involving thoracic spine. Vertebral bodies exhibit normal stature. OTHER FINDINGS: Unremarkable. IMPRESSION: No evidence of acute central pulmonary embolus. There is reflux of contrast material into the IVC and hepatic veins suggesting pulmonary arterial hypertension; rule out right heart strain. Clinical correlation recommended.. Moderate cardiomegaly. Mild atelectasis and/or scarring changes right upper and lower lobes. 3.5 mm nodule right lower lobe.. There is a small right-sided effusion with mild passive atelectasis right posterior sulcus. Small the cluster of cystic foci right lower lobe a smaller similar adjacent focus. Mild atelectasis and/or scarring changes right upper and lower lobes. 3.5 mm nodule right lower lobe.. There is a small right-sided effusion with mild passive atelectasis right posterior sulcus. See above discussion for additional details and findings
[2018-02-08] MEDS ORDERED: Pneumococcal 23-Valent Vaccine IM ONE (16:23)
[2018-02-08] MEDS ORDERED: Influenza Vaccine 60 MCG/0.5 ML SYR (3 yr & up) IM ONE (16:24)
--- NOTE | 2018-02-09 14:02 | CP.PCM.PN ---
"<RjLex gale - Last Filed: 02/09/18 15:30> Subjective - Date & Time of Evaluation Date of Evaluation: 02/09/18 Time of Evaluation: 09:35 - Subjective Subjective: Patient seen and examined at bedside. No overnight events reported. Shortness of Breath and chest pain has improved. Denies any fever, chills, abdominal pain, nausea, vomiting, changes in bowel habits or urinary symptoms. Patient does complain of trouble sleeping. Objective - Vital Signs/Intake and Output Vital Signs (last 24 hours): Temp Pulse Resp BP Pulse Ox 97.4 F L 109 H 20 106/82 98 02/09/18 04:05 02/09/18 04:21 02/09/18 04:05 02/09/18 09:50 02/09/18 04:05 Intake and Output: 02/09/18 02/09/18 06:59 18:59 Intake Total 200 400 Output Total 2500 Balance -2300 400 - Medications Medications: Current Medications Aspirin (Aspirin Chewable) 81 mg PO DAILY [facility] Last Admin: 02/09/18 09:50 Dose: 81 mg Carvedilol (Coreg) 3.125 mg PO BID [facility] Last Admin: 02/09/18 09:50 Dose: 3.125 mg Furosemide (Lasix) 40 mg IVP BID [facility] Last Admin: 02/09/18 09:50 Dose: 40 mg Heparin Sodium (Porcine) (Heparin) 5,000 units SC Q8 [facility] Last Admin: 02/09/18 13:35 Dose: 5,000 units Rosuvastatin Calcium (Crestor) 5 mg PO HS [facility] Last Admin: 02/08/18 21:17 Dose: 5 mg - Labs Labs: 02/08/18 10:38 02/08/18 10:38 PT 19.0 SECONDS (9.7-12.2) H 02/08/18 10:38 INR 1.7 02/08/18 10:38 APTT 34 SECONDS (21-34) 02/08/18 10:38 - Constitutional Appears: Well, Non-toxic, No Acute Distress - Head Exam Head Exam: ATRAUMATIC, NORMAL INSPECTION, NORMOCEPHALIC - Eye Exam Eye Exam: EOMI - ENT Exam ENT Exam: Mucous Membranes Moist - Respiratory Exam Respiratory Exam: Rales (mild), NORMAL BREATHING PATTERN. absent: Clear to Ausculation Bilateral, Wheezes, Stridor - Cardiovascular Exam Cardiovascular Exam: RRR, +S1, +S2 Additional comments: Decreased Heart Sounds - GI/Abdominal Exam GI & Abdominal Exam: Soft. absent: Tenderness - Extremities Exam Extremities Exam: Normal Capillary Refill. absent: Pedal Edema - Neurological Exam Neurological Exam: Alert, Awake, Oriented x3 - Psychiatric Exam Psychiatric exam: Normal Affect, Normal Mood - Skin Skin Exam: Dry, Intact, Normal Color, Warm Assessment and Plan - Assessment and Plan (Free Text) Assessment: 37 hear old male with PMHx of CHF (EF of 15%) & Cholecystitis admitted for eval uation and treatment of acute on chronic CHF exacerbation. Plan: Acute on Chronic CHF -Echo 08/19/2017: LV moderately dilated. LV diastolic function is normal. No LV thrombus. LV filling pressure is elevated. Left atrium and volume is moderately dilated. Mitral regurgitation is mild. Mild to moderate tricuspid regurgitation. Right ventricular systolic pressure is estimated 45-50 mmHG. LV global hypkinesis with EF 15% ECHO (02/08/18): PENDING READ Troponins Negative x 2 | BNP 4250 on Admission| EKG shows SInus Tachycardia, no changes from previous EKG Cardiology Consulted (Dr. Chacko, F/U with Recs) Patient stated he may have had a recent cath at [facility], however upon contacting [place], they have no record of this patient ever having a cardiac cath -Strict I and Os -Daily weights -Patient unsure of home meds, meds restarted from MR discharge. -Meds: --ASA 81 mg PO daily --Coreg 3.125 mg PO BID --Lasix 40 mg IVP BID --Crestor 5 mg PO HS --Lisinopril 20mg Daily --Spironolactone 25mg PO Daily PPx -Heparin 5000 U SC Q8 GI proph not indicated Heart Health Diet, 1200ml Fluid Restriction, 2gm Salt Restriction Patient seen and discussed with Attending Lex Lr, PGY-2 <Guzman Sharma - Last Filed: 02/09/18 17:48> Objective - Vital Signs/Intake and Output Vital Signs (last 24 hours): Temp Pulse Resp BP Pulse Ox 97.5 F L 109 H 20 106/76 97 02/09/18 15:00 02/09/18 16:43 11/10/18 15:00 02/09/18 15:00 02/09/18 16:43 Intake and Output: 02/09/18 02/09/18 06:59 18:59 Intake Total 200 1200 Output Total 2500 1700 Balance -2300 -500 - Medications Medications: Current Medications Aspirin (Aspirin Chewable) 81 mg PO DAILY [facility] Carvedilol (Coreg) 6.25 mg PO BID [facility] Furosemide (Lasix) 60 mg IVP Q12 [facility] Heparin Sodium (Porcine) (Heparin) 5,000 units SC Q8 [facility] Last Admin: 02/09/18 13:35 Dose: 5,000 units Influenza Virus Vaccine (Fluzone Quad [id number]) 60 mcg IM .ONCE ONE Stop: 02/10/18 10:01 Lisinopril (Zestril) 20 mg PO DAILY [facility] Pneumococcal Polyvalent Vaccine (Pneumovax 23 Vaccine) 0.5 ml IM .ONCE ONE Stop: 02/11/18 10:01 Rosuvastatin Calcium (Crestor) 5 mg PO HS [facility] Last Admin: 02/08/18 21:17 Dose: 5 mg Spironolactone (Aldactone) 50 mg PO DAILY [facility] - Labs Labs: 02/08/18 10:38 02/09/18 16:37 PT 19.0 SECONDS (9.7-12.2) H 02/08/18 10:38 INR 1.7 02/08/18 10:38 APTT 34 SECONDS (21-34) 02/08/18 10:38 Attending/Attestation - Attestation I have personally seen and examined this patient.: Yes I have fully participated in the care of the patient.: Yes I have reviewed all pertinent clinical information, including history, physical exam and plan: Yes Notes (Text): seen and examined Patient is noncomplaince with diet,drink alcohol occasionally and stop smoking Discuss about follow up Discuss with Dr Bond. His recommendations appreciated continue water restriction observe overnight on current medication We will discharge him tomorrow Follow Dr Bond on Sunday as an out patient"
[2018-02-09 16:56] LABS: ALB/GLOB RATIO 1.3 (1.0-2.1); ALT/SGPT 49 U/L (21-72); AST/SGOT 32 U/L (17-59); BLOOD UREA NITROGEN 21 mg/dL (9-20); CALCIUM 9.4 mg/dl (8.6-10.4); GFR NON-AFRICAN AMERICAN > 60
--- NOTE | 2018-02-09 17:14 | CP.PCM.CON ---
History of Present Illness - History of Present Illness History of Present Illness: 37 y/o male with dx'd dilated cardiomyopathy since 07/2016 ...unknown if even prior - There have been reports of ETOH use in past - There have been reports of non-compliance to medical therapy and he was offered and was non-compliant. Presetns with usually CHF c/o of abdominal fullness, N/V, SOB NYHA 3 (1 block) denies palpitation, chest pain, fevers or chills. PMHX: denies hx of prior DE SocHx: Prior smoker, denies drug use/IVDA Review of Systems - Review of Systems All systems: reviewed and no additional remarkable complaints except Past Patient History - Past Medical History & Family History Past Medical History?: Yes - Past Social History Smoking Status: Former Smoker - CARDIAC Hx Congestive Heart Failure: Yes - PULMONARY Hx Respiratory Disorders: No - NEUROLOGICAL Hx Neurological Disorder: No - HEENT Hx HEENT Problems: No - RENAL Hx Chronic Kidney Disease: No - ENDOCRINE/METABOLIC Hx Endocrine Disorders: No - HEMATOLOGICAL/ONCOLOGICAL Hx Blood Disorders: No - INTEGUMENTARY Hx Dermatological Problems: No - MUSCULOSKELETAL/RHEUMATOLOGICAL Hx Musculoskeletal Disorders: No Hx Falls: No - GASTROINTESTINAL Hx Gall Bladder Disease: Yes - GENITOURINARY/GYNECOLOGICAL Hx Genitourinary Disorders: No - PSYCHIATRIC Hx Substance Use: No - SURGICAL HISTORY Hx Surgeries: No - ANESTHESIA Hx Anesthesia: No Hx Anesthesia Reactions: No Meds Allergies/Adverse Reactions: Allergies Allergy/AdvReac Type Severity Reaction Status Date / Time No Known Allergies Allergy Verified 02/08/18 09:55 - Medications Medications: Current Medications Aspirin (Aspirin Chewable) 81 mg PO DAILY [facility] Carvedilol (Coreg) 3.125 mg PO BID [facility] Last Admin: 02/09/18 09:50 Dose: 3.125 mg Furosemide (Lasix) 40 mg IVP BID [facility] Last Admin: 02/09/18 09:50 Dose: 40 mg Heparin Sodium (Porcine) (Heparin) 5,000 units SC Q8 [facility] Last Admin: 02/09/18 13:35 Dose: 5,000 units Influenza Virus Vaccine (Fluzone Quad [id number]) 60 mcg IM .ONCE ONE Stop: 02/10/18 10:01 Lisinopril (Zestril) 20 mg PO DAILY [facility] Pneumococcal Polyvalent Vaccine (Pneumovax 23 Vaccine) 0.5 ml IM .ONCE ONE Stop: 02/11/18 10:01 Rosuvastatin Calcium (Crestor) 5 mg PO HS [facility] Last Admin: 02/08/18 21:17 Dose: 5 mg Spironolactone (Aldactone) 25 mg PO DAILY [facility] Last Admin: 02/09/18 14:42 Dose: 25 mg Physical Exam - Head Exam Head Exam: ATRAUMATIC, NORMAL INSPECTION, NORMOCEPHALIC - Eye Exam Eye Exam: EOMI, Normal appearance, PERRL - ENT Exam ENT Exam: Mucous Membranes Moist, Normal Oropharynx - Neck Exam Neck exam: Positive for: Full Rom. Negative for: Tenderness, Thyromegaly - Respiratory Exam Respiratory Exam: NORMAL BREATHING PATTERN. absent: Rales, Rhonchi, Wheezes - Cardiovascular Exam Cardiovascular Exam: REGULAR RHYTHM, JVD, +S1, +S2 - GI/Abdominal Exam GI & Abdominal Exam: Firm. absent: Pulsatile Mass, Tenderness - Extremities Exam Extremities exam: Positive for: normal inspection. Negative for: calf tenderness, pedal edema - Psychiatric Exam Psychiatric exam: Normal Affect, Normal Mood - Skin Skin Exam: Normal Color, Warm Results - Vital Signs Recent Vital Signs: Last Vital Signs Temp 98.6 F 02/09/18 08:00 Pulse 109 H 02/09/18 16:43 Resp 18 02/09/18 08:00 BP 111/78 02/09/18 14:35 Pulse Ox 97 02/09/18 16:43 - Labs Result Diagrams: 02/08/18 10:38 02/09/18 16:37 Labs: Laboratory Results - last 24 hr 02/08/18 02/09/18 17:15 16:37 Sodium 139 Potassium 4.1 Chloride 104 Carbon Dioxide 25 Anion Gap 14 BUN 21 H Creatinine 1.3 Est GFR ( Amer) > 60 Est GFR (Non-Af Amer) > 60 Random Glucose 106 Calcium 9.4 Magnesium 2.0 Total Bilirubin 0.7 AST 32 ALT 49 Alkaline Phosphatase 55 Troponin I 0.0390 0.0180 Total Protein 7.0 Albumin 4.0 Globulin 3.1 Albumin/Globulin Ratio 1.3 - EKG Data EKG Interpreted by: Myself - Imaging and Cardiology Chest x-ray Status: Image reviewed by me Assessment & Plan - Assessment and Plan (Free Text) Assessment: 37 y/o with longstanding severe dilated CM with RV failure - etiology appears to be either viral or ETOG mediated - troponin is negative for any ACS and he denies hx of CP I have reviewed his echo images directly; EF 15%, restricitive diastolic dysfunction, RV dysfunction, dilated and non-compliant IVC suggesting inc filling pressures and CVP. His sx's of abdominal fullness, N/V and bloating are likely a manifestation of abdominal/gut wall edema resulting from BIV heart failure, although true GI pathology cannot be excluded. PLAN: He needs to be educated on compliance 1.5 L fluid restricition f/u with me in office to continue medical care MEDS: inc coreg to 6.25 BID inc aldactone to 50 daily cont lasix 60 IV BID for now and d/c on 40 BID dose; monitor lytes as outpatient cont zestril 20 cont ASA and statin add GI prophylaxis If he complies with office f/u: I will pursue R&L heart cath as well as rediscussion of life-vest use as an outpatient.
[2018-02-10 08:01] LABS: HEMOGLOBIN 14.4 g/dL (12.0-18.0); MEAN CELL VOLUME 87.8 fL (80.0-94.0); MEAN CORPUSCULAR HEMOGLOBIN 28.6 pg (27.0-31.0); MEAN CORPUSCULAR HGB CONC 32.6 g/dL (33.0-37.0); MEAN PLATELET VOLUME 8.6 fL (7.2-11.7); RBC 5.03 Mil/uL (4.40-5.90); RED CELL DISTRIBUTION WIDTH 14.6 % (11.5-14.5); WHITE BLOOD COUNT 10.7 K/uL (4.8-10.8)
[2018-02-10 08:10] LABS: ALB/GLOB RATIO 1.3 (1.0-2.1); ALBUMIN 3.9 g/dL (3.5-5.0); ALT/SGPT 40 U/L (21-72); AST/SGOT 25 U/L (17-59); BLOOD UREA NITROGEN 21 mg/dL (9-20); CALCIUM 9.3 mg/dl (8.6-10.4); GFR NON-AFRICAN AMERICAN > 60
[2018-02-10] MEDS ORDERED: Influenza Vaccine 60 MCG/0.5 ML SYR (3 yr & up) IM ONE (10:00)
--- NOTE | 2018-02-10 13:19 | CP.PCM.DIS ---
"Provider - Provider Date of Admission: 02/08/18 12:57 Attending physician: Guzman Sharma MD Consults: Cardiology - Dr. Chacko Time Spent in preparation of Discharge (in minutes): 40 Diagnosis - Discharge Diagnosis (1) Congestive heart failure Status: Chronic (2) Acute on chronic HFrEF (heart failure with reduced ejection fraction) Status: Chronic Priority: High Hospital Course - Lab Results Lab Results: Most Recent Lab Values WBC 10.7 K/uL (4.8-10.8) 02/10/18 07:47 RBC 5.03 Mil/uL (4.40-5.90) 02/10/18 07:47 Hgb 14.4 g/dL (12.0-18.0) 02/10/18 07:47 Hct 44.1 % (35.0-51.0) 02/10/18 07:47 MCV 87.8 fL (80.0-94.0) 02/10/18 07:47 MCH 28.6 pg (27.0-31.0) 02/10/18 07:47 MCHC 32.6 g/dL (33.0-37.0) L 02/10/18 07:47 RDW 14.6 % (11.5-14.5) H 02/10/18 07:47 Plt Count 316 K/uL (130-400) 02/10/18 07:47 MPV 8.6 fL (7.2-11.7) 02/10/18 07:47 Neut % (Auto) 66.1 % (50.0-75.0) 02/08/18 10:38 Lymph % (Auto) 26.6 % (20.0-40.0) 02/08/18 10:38 [place] % (Auto) 6.0 % (0.0-10.0) 02/08/18 10:38 Eos % (Auto) 0.2 % (0.0-4.0) 02/08/18 10:38 Baso % (Auto) 1.1 % (0.0-2.0) 02/08/18 10:38 Neut # (Auto) 6.9 K/uL (1.8-7.0) 02/08/18 10:38 Lymph # (Auto) 2.8 K/uL (1.0-4.3) 02/08/18 10:38 [place] # (Auto) 0.6 K/uL (0.0-0.8) 02/08/18 10:38 Eos # (Auto) 0.0 K/uL (0.0-0.7) 02/08/18 10:38 Baso # (Auto) 0.1 K/uL (0.0-0.2) 02/08/18 10:38 PT 19.0 SECONDS (9.7-12.2) H 02/08/18 10:38 INR 1.7 02/08/18 10:38 APTT 34 SECONDS (21-34) 02/08/18 10:38 D-Dimer, Quantitative 433 ng/mlDDU (0-243) H 02/08/18 10:38 Sodium 139 mmol/L (132-148) 02/10/18 07:47 Potassium 3.6 mmol/L (3.6-5.2) 02/10/18 07:47 Chloride 105 mmol/L (98-107) 02/10/18 07:47 Carbon Dioxide 26 mmol/L (22-30) 02/10/18 07:47 Anion Gap 11 (10-20) 02/10/18 07:47 BUN 21 mg/dL (9-20) H 02/10/18 07:47 Creatinine 1.2 mg/dL (0.8-1.5) 02/10/18 07:47 Est GFR ( Amer) > 60 02/10/18 07:47 Est GFR (Non-Af Amer) > 60 02/10/18 07:47 Random Glucose 95 mg/dL (75-110) 02/10/18 07:47 Calcium 9.3 mg/dl (8.6-10.4) 02/10/18 07:47 Magnesium 2.0 mg/dL (1.6-2.3) 02/10/18 07:47 Total Bilirubin 0.8 mg/dL (0.2-1.3) 02/10/18 07:47 AST 25 U/L (17-59) 02/10/18 07:47 ALT 40 U/L (21-72) 02/10/18 07:47 Alkaline Phosphatase 66 U/L (38-126) 02/10/18 07:47 Troponin I 0.0180 ng/mL (0.00-0.120) 02/09/18 16:37 NT-Pro-B Natriuret Pep 4250 pg/mL (0-450) H 02/08/18 10:38 Total Protein 6.9 g/dL (6.3-8.3) 02/10/18 07:47 Albumin 3.9 g/dL (3.5-5.0) 02/10/18 07:47 Globulin 3.0 gm/dL (2.2-3.9) 02/10/18 07:47 Albumin/Globulin Ratio 1.3 (1.0-2.1) 02/10/18 07:47 Urine Color Ibeth (YELLOW) 02/08/18 10:58 Urine Clarity Hazy (Clear) 02/08/18 10:58 Urine pH 5.0 (5.0-8.0) 02/08/18 10:58 Ur Specific Sobieski 1.038 (1.003-1.030) H 02/08/18 10:58 Urine Protein 2+ mg/dL (NEGATIVE) H 02/08/18 10:58 Urine Glucose (UA) Normal mg/dL (Normal) 02/08/18 10:58 Urine Ketones Negative mg/dL (NEGATIVE) 02/08/18 10:58 Urine Blood 1+ (NEGATIVE) H 02/08/18 10:58 Urine Nitrate Negative (NEGATIVE) 02/08/18 10:58 Urine Bilirubin 1+ (NEGATIVE) H 02/08/18 10:58 Urine Urobilinogen 2.0 mg/dL (0.2-1.0) 02/08/18 10:58 Ur Leukocyte Esterase Neg Martinez/uL (Negative) 02/08/18 10:58 Urine WBC (Auto) 5 /hpf (0-5) 02/08/18 10:58 Urine RBC (Auto) 13 /hpf (0-3) H 02/08/18 10:58 Ur Squamous Epith Cells 2 /hpf (0-5) 02/08/18 10:58 Urine Opiates Screen Negative (NEGATIVE) 02/08/18 10:58 Urine Methadone Screen Negative (NEGATIVE) 02/08/18 10:58 Ur Barbiturates Screen Negative (NEGATIVE) 02/08/18 10:58 Ur Phencyclidine Scrn Negative (NEGATIVE) 02/08/18 10:58 Ur Amphetamines Screen Negative (NEGATIVE) 02/08/18 10:58 U Benzodiazepines Scrn Negative (NEGATIVE) 02/08/18 10:58 U Oth Cocaine Metabols Negative (NEGATIVE) 02/08/18 10:58 U Cannabinoids Screen Negative (NEGATIVE) 02/08/18 10:58 Alcohol, Quantitative < 10 mg/dl (0-10) 02/08/18 10:38 - Hospital Course Hospital Course: This patient is a 37 year old male with a PMHx of CHF (EF of 15%) who was admitted for acute on chronic CHF exacerbation. Cardiology Consulted on the case. BNP was elevated at 4250, EKG showed sinus tachycardia w/ no changes form previous EKG. Patient was diuresed with lasix with improvement of his symptoms. Medication changes during admission include an increase of his Coreg to 6.25mg PO BOD, Aldactone to 50 PO daily, and lasix to 40 PO Daily. Patient is aware of the medication changes and agrees to compliance. Patient also agrees to follow up with a PMD or at [facility]. He is to follow up with Cardiology (Ricco) on Sunday02/11/18 which he agrees to do. CHF diet was reviewed with the patient before discharge. Compliance was reinforced. Relevant studies below -Echo 08/19/2017: LV moderately dilated. LV diastolic function is normal. No LV thrombus. LV filling pressure is elevated. Left atrium and volume is moderately dilated. Mitral regurgitation is mild. Mild to moderate tricuspid regurgitation. Right ventricular systolic pressure is estimated 45-50 mmHG. LV global hypkinesis with EF 15% ECHO (02/08/18): PENDING READ Troponins Negative x 2 | BNP 4250 on Admission| EKG shows SInus Tachycardia, no changes from previous EKG Discharge Exam - Head Exam Head Exam: ATRAUMATIC, NORMAL INSPECTION, NORMOCEPHALIC - Eye Exam Eye Exam: EOMI, Normal appearance - ENT Exam ENT Exam: Mucous Membranes Moist - Respiratory Exam Respiratory Exam: Clear to PA & Lateral, NORMAL BREATHING PATTERN. absent: Accessory Muscle Use, Rales - Cardiovascular Exam Cardiovascular Exam: RRR, +S1, +S2 Additional comments: Decreased Heart Sounds - GI/Abdominal Exam GI & Abdominal Exam: Normal Bowel Sounds, Soft. absent: Tenderness - Extremities Exam Extremities exam: normal capillary refill Additional comments: No Pedal edema - Neurological Exam Neurological exam: Alert, Oriented x3 - Psychiatric Exam Psychiatric exam: Normal Affect, Normal Mood - Skin Skin Exam: Dry, Intact, Normal Color, Warm Discharge Plan - Discharge Medications Prescriptions: Aspirin [Aspirin Chewable] 81 mg PO DAILY #30 chew Carvedilol [Coreg] 6.25 mg PO BID #60 tab Furosemide [Lasix] 40 mg PO BID #60 tab Lisinopril [Zestril] 20 mg PO DAILY #30 tab Rosuvastatin Calcium [Crestor] 5 mg PO QPM #30 tab Spironolactone [Aldactone] 50 mg PO DAILY #30 tab - Follow Up Plan Condition: STABLE Disposition: HOME/ ROUTINE Instructions: Heart Failure (DC), Heart Failure (GEN), Pacemaker (DC), Pacemaker (GEN), Pulmonary Edema (DC), Pulmonary Edema (GEN), Ascites (DC), Ascites (GEN) Additional Instructions: Please follow up with primary medical physician after discharge. Please make appointment as soon as you get discharged. Contact information for our [facility] clinic is in your discharge paperwork Please follow up with Cardiology on Sunday02/11/18. You may come as a walk in around 2PM. Please do not miss this appointment. Please take all medications as instructed. Please make sure you get refills before you run out. Please follow diet as instructed. Which includes less than 2grams of salt daily and 1500ml (a little less than 6.5 cups) of fluid daily. If your symptoms return, please return to emergency room. Referrals: [facility] [Outside] Jaydon Olmedo MD [Staff Provider] -"
[2018-02-10 16:46] VITALS: TEMP 97.9
[2018-02-10 18:24] VITALS: BP 90/72; PULSE 98; RESP 16; O2SAT 100
[2018-02-11] MEDS ORDERED: Pneumococcal 23-Valent Vaccine IM ONE (10:00)
== END 2018-02-10 18:48 | disposition home or self-care (01) ==
LOC: C.ER 09:40 → C.9E 12:57 → C.6T 14:29
PROVIDERS: ADMIT Internal Medicine; ATTEND Internal Medicine
DX: I11.0 Hypertensive heart disease with heart failure (principal); I50.9 Heart failure, unspecified; I42.0 Dilated cardiomyopathy; Z87.891 Personal history of nicotine dependence; Z91.19 Patient's noncompliance with other medical treatment and regimen; I07.1 Rheumatic tricuspid insufficiency
CPT/HCPCS: 36415; 71046; 71275; 80053; 80320; 80324; 80345; 80346; 80349; 80353; 80358; 80361; 81001; 83735; 83880; 83992; 84484; 85025; 85027; 85378; 85610; 85730; 93321; 96374; 99285; G0378; J1644; J1940; Q9967

== ENCOUNTER 2018-03-31 11:02 | Emergency (ER) | payer OTHER ==
[2018-03-31 11:02] VITALS: BMI 30.2
[2018-03-31] MEDS: Albuterol-Ipratrop 3 mg / 0.5 (3 ml) UD IH STA (11:34)
[2018-03-31] MEDS ORDERED: Albuterol-Ipratrop 3 mg / 0.5 (3 ml) UD ONE (11:36)
--- NOTE | 2018-03-31 12:00 | C.PDOC ---
History Of Present Illness 37 year old male presents to the ED complaining of nonproductive cough for 5 days. Reports he was feeling short of breath today. Denies taking any medications for symptoms. Denies any fever, chills, chest pain, congestion, or nausea, vomiting or diarrhea. Denies sick contacts or any recent travels. Time Seen by Provider: 03/31/18 11:19 Chief Complaint (Nursing): Shortness Of Breath History Per: Patient History/Exam Limitations: no limitations Onset/Duration Of Symptoms: Days (5) Current Symptoms Are (Timing): Still Present Associated Symptoms: Other (nonproductive cough ). denies: Fever, Chills, Chest Pain, Productive Cough Recent travel outside of the [place]: No Past Medical History Reviewed: Historical Data, Nursing Documentation, Vital Signs Vital Signs: Last Vital Signs Temp 97.4 F L 03/31/18 11:05 Pulse 70 03/31/18 11:05 Resp 22 03/31/18 11:05 BP 122/84 03/31/18 11:05 Pulse Ox 95 03/31/18 11:05 - Medical History PMH: CHF, Gall Bladder Disease (choleystitis), HTN, Hyperlipidemia Denies: Chronic Kidney Disease Surgical History: Pacemaker - [facility] DETOXIFICATION SERVICES FOR SUBSTANCE ABUSE TREATMENT (08/19/17) Family History: States: No Known Family Hx - Social History Hx Alcohol Use: No Hx Substance Use: No - Immunization History Hx Tetanus Toxoid Vaccination: No Hx Influenza Vaccination: No Hx Pneumococcal Vaccination: No Review Of Systems Constitutional: Negative for: Fever ENT: Negative for: Nose Congestion, Throat Pain Cardiovascular: Negative for: Chest Pain Respiratory: Positive for: Cough, Shortness of Breath Gastrointestinal: Negative for: Nausea, Vomiting, Diarrhea Physical Exam - Physical Exam Appears: Non-toxic, No Acute Distress, Other (actively coughing ) Skin: Warm, Dry, No Rash Head: Normacephalic Eye(s): bilateral: Normal Inspection Nose: Normal Oral Mucosa: Moist Neck: Supple Chest: Symmetrical, No Tenderness Cardiovascular: Rhythm Regular Respiratory: Normal Breath Sounds, No Rales, No Rhonchi, No Wheezing Gastrointestinal/Abdominal: Soft, No Tenderness Extremity: Bilateral: Atraumatic, Normal Color And Temperature, Normal ROM Neurological/Psych: Oriented x3, Normal Speech Gait: Steady ED Course And Treatment O2 Sat by Pulse Oximetry: 95 (RA) Pulse Ox Interpretation: Normal - Other Rad CXR X-Ray: Viewed By Me, Read By Radiologist Interpretation: FINDINGS: LINES AND TUBES: None. LUNG AND PLEURA: The lungs are well inflated and clear. No pleural effusion or pneumothorax. HEART AND MEDIASTINUM: There is severe cardiomegaly. No aortic atherosclerotic calcification present. The hilar and mediastinal contours are within normal limits. SKELETAL STRUCTURES: The bony structures are within normal limits for the patient's age. VISUALIZED UPPER ABDOMEN: Normal. OTHER FINDINGS: None. IMPRESSION: No active pulmonary disease. Severe cardiomegaly. Medical Decision Making Medical Decision Making: Plan - Prednisone 60mg PO - Neb treatment - CXR On re-examination, patient is resting comfortably in no acute distress. Patient reports improvement of symptoms. Patient given follow up instructions. Instructed to return to ER if symptoms worsen or new symptoms arise. Disposition Counseled Patient/Family Regarding: Diagnosis, Need For Followup, Rx Given - Disposition Disposition: HOME/ ROUTINE Disposition Time: 11:59 Condition: STABLE Additional Instructions: You have viral upper respiratory infection. Take Tylenol or Motrin alternating every 4-6 hours for Fever 100.4F or higher. Rest and drink plenty of fluids. Take medications as prescribed and as needed for cough and symptoms Follow up with your primary medical doctor or clinic in 2-5 days for further evaluation. Return to the emergency department at any time if symptoms persist or worsen. Prescriptions: Albuterol HFA [Ventolin HFA 90 mcg/actuation (8 g)] 1 puff IH Q4 #1 puff Benzonatate [Tessalon Perles] 100 mg PO TID #30 sgl predniSONE [predniSONE Tab] 40 mg PO DAILY #10 tab Instructions: Viral Upper Respiratory Infection, Adult (DC) Forms: [employer] (Citizen Of [place]) - POA Present On Arrival: None - Clinical Impression Clinical Impression: Respiratory tract infection - PA / PRINCIPAL TECHNICAL ARCHITECT / Resident Statement MD/DO has reviewed & agrees with the documentation as recorded. - Scribe Statement The provider has reviewed the documentation as recorded by the Calebibjocelyne Cronin All medical record entries made by the Scribe were at my direction and personally dictated by me. I have reviewed the chart and agree that the record accurately reflects my personal performance of the history, physical exam, medical decision making, and the department course for this patient. I have also personally directed, reviewed, and agree with the discharge instructions and disposition.
--- NOTE | 2018-03-31 12:28 | RAD ---
Date of service: 03/31/2018 HISTORY: Shortness of breath COMPARISON: 02/08/2018. TECHNIQUE: Chest PA and lateral FINDINGS: LINES AND TUBES: None. LUNG AND PLEURA: The lungs are well inflated and clear. No pleural effusion or pneumothorax. HEART AND MEDIASTINUM: There is severe cardiomegaly. No aortic atherosclerotic calcification present. The hilar and mediastinal contours are within normal limits. SKELETAL STRUCTURES: The bony structures are within normal limits for the patient's age. VISUALIZED UPPER ABDOMEN: Normal. OTHER FINDINGS: None. IMPRESSION: No active pulmonary disease. Severe cardiomegaly.
[2018-03-31 12:47] VITALS: BP 121/82; PULSE 72; RESP 18; TEMP 97.5
[2018-03-31 13:05] VITALS: O2SAT 95
== END 2018-03-31 12:46 | disposition home or self-care (01) ==
LOC: C.ER 11:02
DX: J98.8 Other specified respiratory disorders (principal); Z87.891 Personal history of nicotine dependence

== ENCOUNTER 2018-04-23 21:13 | Inpatient (IN) | payer MEDICAID, OTHER ==
[2018-04-23 21:13] VITALS: BMI 30.2
--- NOTE | 2018-04-23 21:42 | C.PDOC ---
History Of Present Illness Patient presents to the ER with a complaint of SOB and cough for the last 2 weeks. Patient states he also feels bloated. He is currently speaking in complete sentences. Denies fever, chills, nausea, or vomiting. Time Seen by Provider: 04/23/18 21:42 Chief Complaint (Nursing): Shortness Of Breath History Per: Patient History/Exam Limitations: no limitations Onset/Duration Of Symptoms: Days (2 weeks) Current Symptoms Are (Timing): Still Present Initiating Event: Other (Not known) Current Respiratory Medications: See Home Med List Severity: Moderate Pain Scale Rating Of: 4 Associated Symptoms: Other (No nausea or vomiting. Feels bloated.). denies: Fever, Chills Reports Recently: Seen In ED, Treated By A Physician, Hospitalized Recent travel outside of the [place]: No Additional History Per: Patient Past Medical History Reviewed: Historical Data, Nursing Documentation, Vital Signs Vital Signs: Last Vital Signs Temp 97.6 F 04/23/18 21:30 Pulse 130 H 04/23/18 21:30 Resp 26 H 04/23/18 21:30 BP 156/104 H 04/23/18 21:30 Pulse Ox 98 04/23/18 21:30 - Medical History PMH: CHF, Gall Bladder Disease (choleystitis), HTN, Hyperlipidemia Denies: Chronic Kidney Disease Surgical History: Pacemaker - [facility] Procedures DETOXIFICATION SERVICES FOR SUBSTANCE ABUSE TREATMENT (08/19/17) Family History: States: No Known Family Hx - Social History Hx Alcohol Use: No Hx Substance Use: No - Immunization History Hx Tetanus Toxoid Vaccination: No Hx Influenza Vaccination: No Hx Pneumococcal Vaccination: No Review Of Systems Constitutional: Negative for: Fever, Chills Cardiovascular: Negative for: Chest Pain, Palpitations Respiratory: Positive for: Cough, Shortness of Breath Gastrointestinal: Positive for: Other (Bloated). Negative for: Nausea, Vomiting Neurological: Negative for: Weakness, Numbness Physical Exam - Physical Exam Appears: Non-toxic Skin: Warm, Dry Head: Normacephalic Eye(s): bilateral: Normal Inspection Oral Mucosa: Moist Throat: No Erythema, No Exudate Neck: Trachea Midline, Supple Chest: Other (Left sided pace maker) Cardiovascular: Rhythm Regular Respiratory: No Rales, Rhonchi (Diffuse), No Wheezing Gastrointestinal/Abdominal: Soft, No Tenderness Extremity: No Pedal Edema Neurological/Psych: Oriented x3 ED Course And Treatment - Laboratory Results Result Diagrams: 04/23/18 22:31 04/23/18 22:31 ECG: Interpreted By Me, Viewed By Me ECG Rhythm: Sinus Tachycardia (128), Nonspecific Changes O2 Sat by Pulse Oximetry: 98 (Room air) Pulse Ox Interpretation: Normal - Radiology CXR: Interpreted by Me, Viewed By Me CXR Interpretation: Yes: Cardiomegaly. No: Infiltrates, Fracture, Pnemothorax Progress Note: Blood work, EKG, CXR, urinalysis, and flu swab ordered. Duoneb and solumedrol administered. Disposition Discussed With Dr.: Surjit Gomez Comment: accepted the pt on his service and took over the care at 11:45 PM Doctor Will See Patient In The: ED Counseled Patient/Family Regarding: Studies Performed, Diagnosis - Disposition Disposition: HOSPITALIZED Disposition Time: 21:42 Condition: FAIR Forms: [facility] ([employer]) - POA Present On Arrival: None - Clinical Impression Clinical Impression: CHF (congestive heart failure) - Scribe Statement The provider has reviewed the documentation as recorded by the Scribe Kory Hercules All medical record entries made by the Scribe were at my direction and personally dictated by me. I have reviewed the chart and agree that the record accurately reflects my personal performance of the history, physical exam, medical decision making, and the department course for this patient. I have also personally directed, reviewed, and agree with the discharge instructions and disposition. Decision To Admit - Pt Status Changed To: Hospital Disposition Of: Observation - . Bed Request Type: Telemetry Admitting Physician: Surjit Gomez Patient Diagnosis: CHF (congestive heart failure)
[2018-04-23] MEDS: Albuterol-Ipratrop 3 mg / 0.5 (3 ml) UD IH SCH ×3 (21:45→22:15)
[2018-04-23 22:15] LABS: ABG ALLEN TEST YES; ARTERIAL BLOOD GAS HCO3 22.3 mmol/L (21-28); ARTERIAL BLOOD GAS O2 SAT 98.8 % (95-98); ARTERIAL BLOOD GAS PCO2 31 mm/Hg (35-45); ARTERIAL BLOOD GAS PH 7.42 (7.35-7.45); ARTERIAL BLOOD GAS PO2 87 mm/Hg (80-100); ARTERIAL BLOOD GAS TCO2 21.1 mmol/L (22-28)
[2018-04-23] MEDS ORDERED: Albuterol-Ipratrop 3 mg / 0.5 (3 ml) UD ONE ×2 (22:31→22:51)
[2018-04-23 22:37] LABS: BASO # 0.1 K/uL (0.0-0.2); BASO % 1.1 % (0.0-2.0); EOS % 0.1 % (0.0-4.0); HEMOGLOBIN 12.8 g/dL (12.0-18.0); LYMPH # 1.6 K/uL (1.0-4.3); LYMPH % 18.1 % (20.0-40.0); MEAN CELL VOLUME 87.8 fL (80.0-94.0); MEAN CORPUSCULAR HEMOGLOBIN 27.2 pg (27.0-31.0); MEAN CORPUSCULAR HGB CONC 30.9 g/dL (33.0-37.0); MEAN PLATELET VOLUME 8.1 fL (7.2-11.7); MONO # 0.4 K/uL (0.0-0.8); MONO % 4.8 % (0.0-10.0); NEUT # 6.9 K/uL (1.8-7.0); NEUT % 75.9 % (50.0-75.0); NRBC % 0.1 % (0.0-2.0); RBC 4.71 Mil/uL (4.40-5.90); RED CELL DISTRIBUTION WIDTH 17.9 % (11.5-14.5); WHITE BLOOD COUNT 9.1 K/uL (4.8-10.8)
[2018-04-23 22:46] LABS: ALB/GLOB RATIO 1.5 (1.0-2.1); ALT/SGPT 71 U/L (21-72); AST/SGOT 41 U/L (17-59); BLOOD UREA NITROGEN 17 mg/dL (9-20); CALCIUM 8.9 mg/dl (8.6-10.4); GFR NON-AFRICAN AMERICAN > 60
[2018-04-23 22:49] LABS: PROTHROMBIN TIME 22.4 SECONDS (9.7-12.2)
[2018-04-23 22:55] LABS: B-TYPE NATRIURETIC PEPTIDE 4050 pg/mL (0-450)
[2018-04-24 05:46] LABS: BARBITURATES, UR NEGATIVE (NEGATIVE); BENZODIAZEPINES, UR NEGATIVE (NEGATIVE)
[2018-04-24 05:47] LABS: OPIATES, UR NEGATIVE (NEGATIVE); PHENCYCLIDINE, UR NEGATIVE (NEGATIVE)
--- NOTE | 2018-04-24 06:05 | CP.PCM.HP ---
<Ervin Causey - Last Filed: 04/24/18 06:35> History of Present Illness - History of Present Illness History of Present Illness: PGY-[address] Gomez Patient is a 37 year old male with past medical history of CHF, HTN, HLD, cholecystitis, medication noncompliance presenting to the ED for worsening SOB with associated dry cough for the past 2 weeks. He also endorses worsening abdominal distention which labors his breathing. Patient reports that he has not been on any home medications for the last 2 months as he cannot afford them. He was given a life vest 4-5 months ago but state he had to return it. He states he comes to the ED about once per month for the same symptoms, his last hospitilzation for CHF exacerbation was in January. Previous ECHO demonstrated LV global hypokinesis with EF of 15%. No fevers/chills, headaches, dizziness, acute changes in vision, chest pain, palpitations, abdominal pain, n/v/d/c, dysuria, or changes in stool. PMHx: CHF, HTN, HLD, cholecystitis, medication noncompliance PSHx: denies Allergies: NKDA Home Medications: No home meds for last 2 months. ASA 81 PO daily, Lasix 20 mg PO daily, Lisinopril 20 mg PO daily, Spironolactone 25 mg PO daily, Coreg 3.125 mg PO daily, Crestor 5 mg PO HS Family Hx: Father and Grandfather - CHF, father due to complications at age 48, Mother--HTN Social Hx: Recently quit smoking, but smoked for approximately 20 years, 2 packs per day. Patient states he no longer drinks alcohol, used to drink once per week. Unemployed, lives with family, supported financially by his Aundawson Flores. Emergency Contact: Aundawson Flores Present on Admission - Present on Admission Any Indicators Present on Admission: No Review of Systems - Review of Systems All systems: reviewed and no additional remarkable complaints except Review of Systems: as per HPI Past Patient History - Past Medical History & Family History Past Medical History?: Yes - Past Social History Smoking Status: Former Smoker - CARDIAC Hx Congestive Heart Failure: Yes Hx Hypertension: Yes Hx Pacemaker: Yes - PULMONARY Hx Respiratory Disorders: Yes Hx Pulmonary Edema: Yes - NEUROLOGICAL Hx Neurological Disorder: No - HEENT Hx HEENT Problems: No - RENAL Hx Chronic Kidney Disease: No - ENDOCRINE/METABOLIC Hx Endocrine Disorders: No - HEMATOLOGICAL/ONCOLOGICAL Hx Blood Disorders: No - INTEGUMENTARY Hx Dermatological Problems: No - MUSCULOSKELETAL/RHEUMATOLOGICAL Hx Musculoskeletal Disorders: No Hx Falls: No - GASTROINTESTINAL Hx Gall Bladder Disease: Yes (choleystitis) - GENITOURINARY/GYNECOLOGICAL Hx Genitourinary Disorders: No - PSYCHIATRIC Hx Substance Use: No - SURGICAL HISTORY Hx Surgeries: No - ANESTHESIA Hx Anesthesia: Yes Hx Anesthesia Reactions: No Hx Malignant Hyperthermia: No Meds Allergies/Adverse Reactions: Allergies Allergy/AdvReac Type Severity Reaction Status Date / Time No Known Allergies Allergy Verified 02/08/18 09:55 Physical Exam - Constitutional Appears: Non-toxic - Head Exam Head Exam: ATRAUMATIC, NORMAL INSPECTION, NORMOCEPHALIC - Eye Exam Eye Exam: EOMI, Normal appearance, PERRL Pupil Exam: NORMAL ACCOMODATION - ENT Exam ENT Exam: Mucous Membranes Moist, Normal Exam - Neck Exam Neck exam: Positive for: Full Rom, Normal Inspection. Negative for: Tenderness Additional comments: +JVD - Respiratory Exam Respiratory Exam: Rhonchi. absent: Accessory Muscle Use, Rales, Wheezes, Stridor - Cardiovascular Exam Cardiovascular Exam: Tachycardia, +S1, +S2, Systolic Murmur - GI/Abdominal Exam GI & Abdominal Exam: Distended, Normal Bowel Sounds, Soft. absent: Firm, Guarding, Tenderness - Extremities Exam Extremities exam: Positive for: normal capillary refill, pedal edema, pedal pulses present. Negative for: calf tenderness - Back Exam Back exam: NORMAL INSPECTION - Neurological Exam Neurological exam: Alert, CN II-XII Intact, Oriented x3 - Skin Skin Exam: Dry, Intact, Normal Color, Warm Results - Vital Signs Recent Vital Signs: Last Vital Signs Temp 97.6 F 04/23/18 21:30 Pulse 130 H 04/23/18 21:30 Resp 16 04/23/18 22:00 BP 156/104 H 04/23/18 21:30 Pulse Ox 98 04/23/18 23:46 - Labs Result Diagrams: 04/23/18 22:31 04/23/18 22:31 Labs: Laboratory Results - last 24 hr 04/23/18 04/23/18 04/23/18 22:00 22:31 22:31 WBC 9.1 RBC 4.71 Hgb 12.8 Hct 41.3 MCV 87.8 MCH 27.2 MCHC 30.9 L RDW 17.9 H Plt Count 334 MPV 8.1 Neut % (Auto) 75.9 H Lymph % (Auto) 18.1 L [place]ombs % (Auto) 4.8 Eos % (Auto) 0.1 Baso % (Auto) 1.1 Neut # (Auto) 6.9 Lymph # (Auto) 1.6 [place]ombs # (Auto) 0.4 Eos # (Auto) 0.0 Baso # (Auto) 0.1 PT 22.4 H INR 2.0 APTT 29 Puncture Site Rr pCO2 31 L pO2 87 HCO3 22.3 ABG pH 7.42 ABG Total CO2 21.1 L ABG O2 Saturation 98.8 H ABG Base Excess -3.4 L Reyes Test Yes ABG Potassium 3.8 Sodium 141.0 Chloride 111.0 H Glucose 90 Lactate 1.4 Potassium Carbon Dioxide Anion Gap BUN Creatinine Est GFR ( Amer) Est GFR (Non-Af Amer) Random Glucose Calcium Total Bilirubin AST ALT Alkaline Phosphatase Troponin I NT-Pro-B Natriuret Pep Total Protein Albumin Globulin Albumin/Globulin Ratio Arterial Blood Potassium 3.8 Urine Opiates Screen Urine Methadone Screen Ur Barbiturates Screen Ur Phencyclidine Scrn Ur Amphetamines Screen U Benzodiazepines Scrn U Oth Cocaine Metabols U Cannabinoids Screen Influenza Typ A,B (EIA) 04/23/18 04/23/18 04/23/18 22:31 23:41 23:43 WBC RBC Hgb Hct MCV MCH MCHC RDW Plt Count MPV Neut % (Auto) Lymph % (Auto) [place] % (Auto) Eos % (Auto) Baso % (Auto) Neut # (Auto) Lymph # (Auto) [place]bs # (Auto) Eos # (Auto) Baso # (Auto) PT INR APTT Puncture Site pCO2 pO2 HCO3 ABG pH ABG Total CO2 ABG O2 Saturation ABG Base Excess Reyes Test ABG Potassium Sodium 141 Chloride 111 H Glucose Lactate Potassium 4.4 Carbon Dioxide 24 Anion Gap 10 BUN 17 Creatinine 1.1 Est GFR ( Amer) > 60 Est GFR (Non-Af Amer) > 60 Random Glucose 98 Calcium 8.9 Total Bilirubin 1.3 AST 41 ALT 71 Alkaline Phosphatase 59 Troponin I 0.0220 NT-Pro-B Natriuret Pep 4050 H Total Protein 6.7 Albumin 4.0 Globulin 2.6 Albumin/Globulin Ratio 1.5 Arterial Blood Potassium Urine Opiates Screen Urine Methadone Screen Ur Barbiturates Screen Ur Phencyclidine Scrn Ur Amphetamines Screen U Benzodiazepines Scrn U Oth Cocaine Metabols U Cannabinoids Screen Influenza Typ A,B (EIA) Negative for flu a/b 04/24/18 01:00 WBC RBC Hgb Hct MCV MCH MCHC RDW Plt Count MPV Neut % (Auto) Lymph % (Auto) [place] % (Auto) Eos % (Auto) Baso % (Auto) Neut # (Auto) Lymph # (Auto) [place] # (Auto) Eos # (Auto) Baso # (Auto) PT INR APTT Puncture Site pCO2 pO2 HCO3 ABG pH ABG Total CO2 ABG O2 Saturation ABG Base Excess Reyes Test ABG Potassium Sodium Chloride Glucose Lactate Potassium Carbon Dioxide Anion Gap BUN Creatinine Est GFR ( Amer) Est GFR (Non-Af Amer) Random Glucose Calcium Total Bilirubin AST ALT Alkaline Phosphatase Troponin I NT-Pro-B Natriuret Pep Total Protein Albumin Globulin Albumin/Globulin Ratio Arterial Blood Potassium Urine Opiates Screen Negative Urine Methadone Screen Negative Ur Barbiturates Screen Negative Ur Phencyclidine Scrn Negative Ur Amphetamines Screen Negative U Benzodiazepines Scrn Negative U Oth Cocaine Metabols Negative U Cannabinoids Screen Positive H Influenza Typ A,B (EIA) Assessment & Plan - Assessment and Plan (Free Text) Plan: Acute on Chronic CHF exacerbation -medication noncompliance -ECHO (01/2018): EF 13%. Severe LV systolic dysfunction. Dilated LV. Mild MR. -seen by Dr. Zeng in past. -Cardiology consult -trop negative -BNP 4050 -Fluid restrictions 1.5 L, solids restriction 2.5g -HHD -strict I/Os -head of bed elevated -daily weights -lasix 40 IV q12 josefa -spironolactone 25 mg PO daily josefa -lisinopril 10 mg PO daily josefa -coreg 6.25 mg PO q12 josefa PPx, Diet, Disposition -DVT ppx: scd, lovenox -Diet: HHD -PT on board Case discussed with Dr. Jason Causey DO, PGY-1 <Surjit Gomez P - Last Filed: 04/24/18 08:57> Results - Vital Signs Recent Vital Signs: Last Vital Signs Temp 97.5 F L 04/24/18 07:00 Pulse 115 H 04/24/18 07:00 Resp 20 04/24/18 07:00 BP 113/69 04/24/18 07:00 Pulse Ox 97 04/24/18 07:00 - Labs Result Diagrams: 04/23/18 22:31 04/23/18 22:31 Labs: Laboratory Results - last 24 hr 04/23/18 04/23/18 04/23/18 22:00 22:31 22:31 WBC 9.1 RBC 4.71 Hgb 12.8 Hct 41.3 MCV 87.8 MCH 27.2 MCHC 30.9 L RDW 17.9 H Plt Count 334 MPV 8.1 Neut % (Auto) 75.9 H Lymph % (Auto) 18.1 L [place]om[place] % (Auto) 4.8 Eos % (Auto) 0.1 Baso % (Auto) 1.1 Neut # (Auto) 6.9 Lymph # (Auto) 1.6 Toombs # (Auto) 0.4 Eos # (Auto) 0.0 Baso # (Auto) 0.1 PT 22.4 H INR 2.0 APTT 29 Puncture Site Rr pCO2 31 L pO2 87 HCO3 22.3 ABG pH 7.42 ABG Total CO2 21.1 L ABG O2 Saturation 98.8 H ABG Base Excess -3.4 L Reyes Test Yes ABG Potassium 3.8 Sodium 141.0 Chloride 111.0 H Glucose 90 Lactate 1.4 Potassium Carbon Dioxide Anion Gap BUN Creatinine Est GFR ( Amer) Est GFR (Non-Af Amer) Random Glucose Calcium Total Bilirubin AST ALT Alkaline Phosphatase Troponin I NT-Pro-B Natriuret Pep Total Protein Albumin Globulin Albumin/Globulin Ratio Arterial Blood Potassium 3.8 Urine Color Urine Clarity Urine pH Ur Specific [place] Urine Protein Urine Glucose (UA) Urine Ketones Urine Blood Urine Nitrate Urine Bilirubin Urine Urobilinogen Ur Leukocyte Esterase Urine WBC (Auto) Urine RBC (Auto) Ur Squamous Epith Cells Urine Opiates Screen Urine Methadone Screen Ur Barbiturates Screen Ur Phencyclidine Scrn Ur Amphetamines Screen U Benzodiazepines Scrn U Oth Cocaine Metabols U Cannabinoids Screen Influenza Typ A,B (EIA) 04/23/18 04/23/18 04/23/18 22:31 23:41 23:43 WBC RBC Hgb Hct MCV MCH MCHC RDW Plt Count MPV Neut % (Auto) Lymph % (Auto) Toombs % (Auto) Eos % (Auto) Baso % (Auto) Neut # (Auto) Lymph # (Auto) [place]om[place] # (Auto) Eos # (Auto) Baso # (Auto) PT INR APTT Puncture Site pCO2 pO2 HCO3 ABG pH ABG Total CO2 ABG O2 Saturation ABG Base Excess Reyes Test ABG Potassium Sodium 141 Chloride 111 H Glucose Lactate Potassium 4.4 Carbon Dioxide 24 Anion Gap 10 BUN 17 Creatinine 1.1 Est GFR ( Amer) > 60 Est GFR (Non-Af Amer) > 60 Random Glucose 98 Calcium 8.9 Total Bilirubin 1.3 AST 41 ALT 71 Alkaline Phosphatase 59 Troponin I 0.0220 NT-Pro-B Natriuret Pep 4050 H Total Protein 6.7 Albumin 4.0 Globulin 2.6 Albumin/Globulin Ratio 1.5 Arterial Blood Potassium Urine Color Urine Clarity Urine pH Ur Specific [place] Urine Protein Urine Glucose (UA) Urine Ketones Urine Blood Urine Nitrate Urine Bilirubin Urine Urobilinogen Ur Leukocyte Esterase Urine WBC (Auto) Urine RBC (Auto) Ur Squamous Epith Cells Urine Opiates Screen Urine Methadone Screen Ur Barbiturates Screen Ur Phencyclidine Scrn Ur Amphetamines Screen U Benzodiazepines Scrn U Oth Cocaine Metabols U Cannabinoids Screen Influenza Typ A,B (EIA) Negative for flu a/b 04/24/18 04/24/18 00:20 01:00 WBC RBC Hgb Hct MCV MCH MCHC RDW Plt Count MPV Neut % (Auto) Lymph % (Auto) [place] % (Auto) Eos % (Auto) Baso % (Auto) Neut # (Auto) Lymph # (Auto) [place] # (Auto) Eos # (Auto) Baso # (Auto) PT INR APTT Puncture Site pCO2 pO2 HCO3 ABG pH ABG Total CO2 ABG O2 Saturation ABG Base Excess Reyes Test ABG Potassium Sodium Chloride Glucose Lactate Potassium Carbon Dioxide Anion Gap BUN Creatinine Est GFR ( Amer) Est GFR (Non-Af Amer) Random Glucose Calcium Total Bilirubin AST ALT Alkaline Phosphatase Troponin I NT-Pro-B Natriuret Pep Total Protein Albumin Globulin Albumin/Globulin Ratio Arterial Blood Potassium Urine Color Yellow Urine Clarity Clear Urine pH 5.0 Ur Specific [place] 1.014 Urine Protein Negative Urine Glucose (UA) Normal Urine Ketones Negative Urine Blood Negative Urine Nitrate Negative Urine Bilirubin Negative Urine Urobilinogen 2.0 Ur Leukocyte Esterase Negative Urine WBC (Auto) 3 Urine RBC (Auto) < 1 Ur Squamous Epith Cells < 1 Urine Opiates Screen Negative Urine Methadone Screen Negative Ur Barbiturates Screen Negative Ur Phencyclidine Scrn Negative Ur Amphetamines Screen Negative U Benzodiazepines Scrn Negative U Oth Cocaine Metabols Negative U Cannabinoids Screen Positive H Influenza Typ A,B (EIA) Attending/Attestation - Attestation I have personally seen and examined this patient.: Yes I have fully participated in the care of the patient.: Yes I have reviewed all pertinent clinical information: Yes Notes (Text): 04/24/18 08:47 Severe systolic and diastolic heart failure with edema, dialated cardiomyopathy Non compliance with meds May need to be evaluated for AICD, biv pacemaker Plan IV lasix, spirnolactone, lisinopril, coreg, Salt, water restriction, i/o, daily weight Cardiology consult GI/DVT prophylaxis See orders for detail.
[2018-04-24 07:57] LABS: URINE BILIRUBIN NEGATIVE (NEGATIVE); URINE CLARITY Clear (Clear); URINE COLOR YELLOW (YELLOW); URINE GLUCOSE (UA) Normal (Normal)
[2018-04-24 07:58] LABS: SQUAMOUS EPITHIAL < 1 /hpf (0-5); URINE BLOOD NEGATIVE (NEGATIVE); URINE LEUKOCYTE ESTERASE NEGATIVE Leu/uL (Negative); URINE PROTEIN NEGATIVE (NEGATIVE)
--- NOTE | 2018-04-24 09:06 | RAD ---
Date of service: 04/23/2018 PROCEDURE: CHEST RADIOGRAPH, 1 VIEW HISTORY: SOB COMPARISON: 03/31/2018 FINDINGS: LUNGS: Clear. PLEURA: No pneumothorax or pleural fluid seen. CARDIOVASCULAR: No aortic atherosclerotic calcification present. Normal. OSSEOUS STRUCTURES: No significant abnormalities. VISUALIZED UPPER ABDOMEN: Normal. OTHER FINDINGS: None. IMPRESSION: No active disease.
--- NOTE | 2018-04-24 12:17 | CP.PCM.PN ---
Subjective - Date & Time of Evaluation Date of Evaluation: 04/24/18 Time of Evaluation: 11:30 - Subjective Subjective: Patient examined at bedside. Due to issues with [employer] overnight, no orders were processed on patient until later this morning. Pt reports difficulty breathing, SOB, abdominal distension, nausea, diarrhea. Objective - Vital Signs/Intake and Output Vital Signs (last 24 hours): Temp Pulse Resp BP Pulse Ox 97.5 F L 110 H 20 113/69 97 04/24/18 07:00 04/24/18 08:00 04/24/18 07:00 04/24/18 07:00 04/24/18 07:00 - Medications Medications: Current Medications Carvedilol (Coreg) 6.25 mg PO BID JACKELIN Enoxaparin Sodium (Lovenox) 40 mg SC DAILY JACKELIN Furosemide (Lasix) 40 mg IVP Q12H [facility]ACKEL[facility] Lisinopril (Zestril) 10 mg PO DAILY JACKEL[facility] Spironolactone (Aldactone) 25 mg PO DAILY JACKELIN - Labs Labs: 04/23/18 22:31 04/23/18 22:31 PT 22.4 SECONDS (9.7-12.2) H 04/23/18 22:31 INR 2.0 04/23/18 22:31 APTT 29 SECONDS (21-34) 04/23/18 22:31 - Constitutional Appears: Non-toxic - Head Exam Head Exam: ATRAUMATIC, NORMAL INSPECTION, NORMOCEPHALIC - Eye Exam Eye Exam: EOMI, Normal appearance - ENT Exam ENT Exam: Mucous Membranes Moist, Normal Exam - Respiratory Exam Respiratory Exam: Accessory Muscle Use, Decreased Breath Sounds, Respiratory Distress. absent: Wheezes - Cardiovascular Exam Cardiovascular Exam: Tachycardia, REGULAR RHYTHM, JVD, Murmur (systolic) - GI/Abdominal Exam GI & Abdominal Exam: Distended, Tenderness (epigastric), Normal Bowel Sounds. absent: Soft - Extremities Exam Extremities Exam: Normal Inspection, Pedal Edema (1+). absent: Calf Tenderness - Neurological Exam Neurological Exam: Alert, Awake, Oriented x3 - Psychiatric Exam Psychiatric exam: Normal Affect, Normal Mood - Skin Skin Exam: Dry, Intact, Normal Color, Warm Assessment and Plan - Assessment and Plan (Free Text) Assessment: 37 year old male with pmhx of CHF, HTN, admitted for CHF exacerbation Plan: Acute CHF exacerbation -CHF uncontrolled, pt has been non-compliant with medications 2/2 financial constraints, discussed need to maintain compliant with medications, and that many are available at [facility] inexpensively. -diuresis with lasix 40mg IV q12 -lisinopril 10mg qd, spironolactone 25mg po qd, ASA 81mg, coreg-holding parameters -echo(02/17) EF~13.5%, severe LV systolic dysfunction, dilated LV, mild MR -EKG on admission: sinus tach @128 -elevate head of bed 45 degrees -strict ins/outs -telemetry -O2 via NC @2L -HHD, low sodium -cardio consult, Dr. Espinal -referral to [facility], . Spoke with Tita, will send demographic info to see if they will consider pt as he is uninsured, to [email or web address] once consent obtained from pt. Discussion had with pt regarding need for treatment at heart failure program, he is in agreement HTN -stable and WNL -home meds, lisinopri Ppx -VTE ppx, lovenox -GI ppx, not indicated Discussed with Dr. Li -Vesna Wallis, PGY-1
[2018-04-24] MEDS: Enoxaparin 40 mg Syringe SC SCH (13:22)
[2018-04-25 07:07] LABS: BASO % 0.1 % (0.0-2.0); HEMOGLOBIN 12.7 g/dL (12.0-18.0); LYMPH % 9.7 % (20.0-40.0); MEAN CELL VOLUME 87.6 fL (80.0-94.0); MEAN CORPUSCULAR HEMOGLOBIN 26.6 pg (27.0-31.0); MEAN CORPUSCULAR HGB CONC 30.4 g/dL (33.0-37.0); MEAN PLATELET VOLUME 8.7 fL (7.2-11.7); MONO # 0.6 K/uL (0.0-0.8); NEUT # 9.1 K/uL (1.8-7.0); NEUT % 84.2 % (50.0-75.0); NRBC % 0.2 % (0.0-2.0); PLATELET COUNT 362 K/uL (130-400); RBC 4.75 Mil/uL (4.40-5.90); RED CELL DISTRIBUTION WIDTH 18.7 % (11.5-14.5); WHITE BLOOD COUNT 10.8 K/uL (4.8-10.8)
[2018-04-25 07:43] LABS: ALB/GLOB RATIO 1.2 (1.0-2.1); ALBUMIN 3.9 g/dL (3.5-5.0); ALT/SGPT 57 U/L (21-72); AST/SGOT 53 U/L (17-59); BLOOD UREA NITROGEN 25 mg/dL (9-20); CALCIUM 8.8 mg/dl (8.6-10.4); GFR NON-AFRICAN AMERICAN > 60
[2018-04-25] MEDS: Enoxaparin 40 mg Syringe SC SCH (09:19)
[2018-04-25 09:56] LABS: ANISOCYTOSIS SLIGHT; BANDS 2 % (0-2); BASOPHIL 1 % (0-2); HYPOCHROMIC SLIGHT; LYMPHOCYTE 9 % (20-40); MONOCYTE 10 % (0-10); NEUTROPHIL 76 % (50-75); PLATELET ESTIMATE NORMAL (NORMAL); POIKILOCYTOSIS SLIGHT; POLYCHROMIC SLIGHT; REACTIVE LYMPHOCYTES 2 % (0-0); TOTAL CELLS COUNTED 100
[2018-04-25 09:57] LABS: BURR CELLS SLIGHT
--- NOTE | 2018-04-25 14:02 | CP.PCM.PN ---
<Valencia Menchaca - Last Filed: 04/25/18 13:49> Subjective - Date & Time of Evaluation Date of Evaluation: 04/25/18 Time of Evaluation: 13:49 - Subjective Subjective: Medicine Progress Note Patient seen and examined at bedside this morning. Patient complains of abdominal pain every time he coughs. Patient is severely affected by his abdominal distension because he states he cannot put on socks with such a physical restriction. Patient denies edema in his legs; he states for his CHF, he would rather have fluids accumulate in his legs than his abdomen. Patient able to tolerate PO intake. Denies fever, chills, sweats, chest pain, palpitations. Objective - Vital Signs/Intake and Output Vital Signs (last 24 hours): Temp Pulse Resp BP Pulse Ox 97.5 F L 105 H 20 126/82 98 04/25/18 07:00 04/25/18 08:00 04/25/18 07:00 04/25/18 12:09 04/25/18 08:00 Intake and Output: 04/25/18 04/25/18 06:59 18:59 Intake Total 500 Output Total 2000 Balance -1500 - Medications Medications: Current Medications Aspirin (Aspirin Chewable) 81 mg PO DAILY [facility] Last Admin: 04/25/18 09:19 Dose: 81 mg Carvedilol (Coreg) 6.25 mg PO BID [facility] Last Admin: 04/25/18 09:19 Dose: 6.25 mg Enoxaparin Sodium (Lovenox) 40 mg SC DAILY [facility] Last Admin: 04/25/18 09:19 Dose: 40 mg Furosemide (Lasix) 40 mg IVP Q12H [facility] Last Admin: 04/25/18 12:09 Dose: 40 mg Lisinopril (Zestril) 10 mg PO DAILY [facility] Last Admin: 04/25/18 09:19 Dose: 10 mg Spironolactone (Aldactone) 25 mg PO DAILY [facility] Last Admin: 04/25/18 09:19 Dose: 25 mg - Labs Labs: 04/25/18 07:00 04/25/18 07:00 PT 22.4 SECONDS (9.7-12.2) H 04/23/18 22:31 INR 2.0 04/23/18 22:31 APTT 29 SECONDS (21-34) 04/23/18 22:31 - Constitutional Appears: Well, Non-toxic - Head Exam Head Exam: ATRAUMATIC, NORMAL INSPECTION - Eye Exam Eye Exam: EOMI, Normal appearance - Neck Exam Neck Exam: Normal Inspection (no hepatojugular reflex, no JVD) - Respiratory Exam Respiratory Exam: Clear to Ausculation Bilateral, NORMAL BREATHING PATTERN - Cardiovascular Exam Cardiovascular Exam: REGULAR RHYTHM (borderline tachycardia) - GI/Abdominal Exam GI & Abdominal Exam: Distended (negative fluid wave), Firm. absent: Guarding, Tenderness, Pulsatile Mass, Rebound - Extremities Exam Extremities Exam: Normal Capillary Refill, Normal Inspection. absent: Calf Tenderness, Pedal Edema (no LE edema) - Neurological Exam Neurological Exam: Alert, Awake, Oriented x3 - Psychiatric Exam Psychiatric exam: Normal Affect, Normal Mood - Skin Skin Exam: Dry, Intact, Normal Color, Warm Assessment and Plan - Assessment and Plan (Free Text) Assessment: 37 y/o male with PMHx of severe CHF (EF 15% Jan 2018) and HTN hospitalized for CHF exacerbation since 04/24. Patient still being diuresed and has has a hx of noncompliance and lack of insurance that will need to be resolved before discharge. CHF exacerbation -Pt has been non-compliant with medications 2/2 financial constraints. 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 echo(02/17) EF~13.5%, severe LV systolic dysfunction, dilated LV, mild MR -diuresis with lasix 40mg IV q12 -successful diuresis overnight HD1: I: 500, O: 200, Balance: -1500. -Patient on core measures of severe CHF - ACEI and spironolactone. -c/w lisinopril 10mg qd, spironolactone 25mg po qd, ASA 81mg, coreg 6.25 mg BID -elevate head of bed 45 degrees, strict ins/outs, HHD, Na < 2g/day. -O2 via NC @2L PRN. Goal > 92% O2 sat. Patient been on RA in NAD -cardio consult, Dr. Espinal, recs appreciated -referral to [facility] unsuccessful due to patient's lack of insurance -SW being consulted - will need to speak to pharmacy about medication coverage and possibly get him to be a patient at [facility] Tachycardia -EKG on admission: sinus tach @128. Patient denies chest pain and palpitations. -Borderline (100-105), consistent with the EKG -cardio consult, [facility] appreciated HTN -stable and WNL -coreg 6.25 BID, lisinopril 10 mg qd Ppx -DVT: lovenox 40 sq daily -GI ppx: not indicated at this time <Cirsto Main - Last Filed: 04/30/18 23:55> Objective - Vital Signs/Intake and Output Vital Signs (last 24 hours): Temp Pulse Resp BP Pulse Ox 97.3 F L 94 H 20 108/80 96 04/30/18 07:00 04/30/18 07:00 04/30/18 07:00 04/30/18 11:24 04/30/18 07:00 - Labs Labs: 04/30/18 06:32 04/30/18 06:32 PT 22.4 SECONDS (9.7-12.2) H 04/23/18 22:31 INR 2.0 04/23/18 22:31 APTT 29 SECONDS (21-34) 04/23/18 22:31 Attending/Attestation - Attestation I have personally seen and examined this patient.: Yes I have fully participated in the care of the patient.: Yes I have reviewed all pertinent clinical information, including history, physical exam and plan: Yes Notes (Text): 04/30/18 23:48 Acute on Chronic systolic heart failure CP r/o ACS HTN Trop and EKG negative c/w ASA, statin, lasix, ACEi awaiting cardio eval
[2018-04-25] MEDS ORDERED: Dextrose 50% SYRINGE Inj (50 ml) ONE (15:56)
[2018-04-25] MEDS ORDERED: Dextrose 50% SYRINGE Inj (50 ml) IV STA (16:07)
[2018-04-25 16:20] LABS: BASO # 0.1 K/uL (0.0-0.2); BASO % 0.4 % (0.0-2.0); HEMOGLOBIN 13.4 g/dL (12.0-18.0); LYMPH # 2.6 K/uL (1.0-4.3); LYMPH % 16.1 % (20.0-40.0); MEAN CELL VOLUME 87.9 fL (80.0-94.0); MEAN CORPUSCULAR HEMOGLOBIN 27.2 pg (27.0-31.0); MEAN CORPUSCULAR HGB CONC 30.9 g/dL (33.0-37.0); MEAN PLATELET VOLUME 8.6 fL (7.2-11.7); MONO # 1.3 K/uL (0.0-0.8); MONO % 8.1 % (0.0-10.0); NEUT % 75.4 % (50.0-75.0); NRBC % 0.3 % (0.0-2.0); RBC 4.92 Mil/uL (4.40-5.90); RED CELL DISTRIBUTION WIDTH 17.7 % (11.5-14.5); WHITE BLOOD COUNT 15.9 K/uL (4.8-10.8)
--- NOTE | 2018-04-25 16:23 | RAD ---
Date of service: 04/25/2018 HISTORY: syncope COMPARISON: 04/23/2018 FINDINGS: LUNGS: No active pulmonary disease. PLEURA: Interval small left pleural effusion needs to be considered. No pneumothorax apparent. CARDIOVASCULAR: No aortic atherosclerotic calcification present. Cardiomegaly as before. No pulmonary vascular congestion. Defibrillator device placed in the interval. OSSEOUS STRUCTURES: No significant abnormalities. VISUALIZED UPPER ABDOMEN: Normal. OTHER FINDINGS: None. IMPRESSION: No active disease cardiomegaly with interval deferred related devices in place. Possible small interval concomitant left pleural effusion
[2018-04-25] MEDS ORDERED: Sodium Chloride 0.9% 500 ML IV ONE ×2 (16:25→23:54)
--- NOTE | 2018-04-25 17:26 | PCM.RRT ---
<Vesna Wallis - Last Filed: 04/25/18 18:55> DIAGNOSTIC SALES SPECIALIST Nurses Assessment - Situation Date: 04/25/18 Time DIAGNOSTIC SALES SPECIALIST was called: 15:48 DIAGNOSTIC SALES SPECIALIST Responder Arrival Time:: 15:49 DIAGNOSTIC SALES SPECIALIST Location:: Med/Surg Room Number: 662-B DIAGNOSTIC SALES SPECIALIST Reason for Call: Change in Mental Status (symcope) DIAGNOSTIC SALES SPECIALIST Called By: RN - IV IV Inserted during DIAGNOSTIC SALES SPECIALIST?: No IV Fluids Initiated During DIAGNOSTIC SALES SPECIALIST?: NS 500cc bolus - Respiratory DIAGNOSTIC SALES SPECIALIST Delivery Method: Nasal Cannula @L/min Oxygen Flow Rate: 3 Received Nebulizer Treatments: No Was the Patient Ventilated with Bag/Mask 100% O2?: No Secretions Suctioned?: No Was the Patient Intubated?: No Was the Patient Placed on a Ventilator?: No - Medication Medications Administered During DIAGNOSTIC SALES SPECIALIST: D50 50ml x1. vancomycin 1g qd. zosyn 3.375g q8h - Diagnostic Test Ordered EKG: Yes (unchanged from prior on admission) Chest X-Ray: Yes (possible small left pleural effusion,no pulm venous congestion; no acute pa) CT Scan: No - Stat Labs Ordered DIAGNOSTIC SALES SPECIALIST Stat Labs Ordered: CBC, BMP, TROPONIN, LACTIC ACID, BLOOD C&S X2 CPR started during DIAGNOSTIC SALES SPECIALIST?: No - Vital Signs Vital Signs: BP-97/64 HR-106 RR-22 O2-100% 3L NC T-97.4 rectal - Faulkner Coma Scale Coma Scale Eye Opening: Spontaneous Coma Scale Motor: Obeys Commands Movement Coma Scale Verbal: Oriented Coma Scale Total: 15 - Sepsis Screen Part 1 Sepsis Screen Part 1: Hypotensive - Sepsis Screen Part 2 Sepsis Screen Part 2: WBC over 12,000 - Vital Signs at end of DIAGNOSTIC SALES SPECIALIST Vital Signs at end of DIAGNOSTIC SALES SPECIALIST: BP-101/68 HR-88 RR-20 O2-100% 3L NC T-97.2 oral - Recommendations 5) DIAGNOSTIC SALES SPECIALIST Level of Care Recommendations: Remain in current setting Notifications: Attending Physician I.Reason for DIAGNOSTIC SALES SPECIALIST - A) Acute Change in Patient: (Select all that apply): Acute change in mental status Subjective: DIAGNOSTIC SALES SPECIALIST called by nurse at 15:48 s/p syncopal event. Nursing reports upon entering room, patient was found laying face up on floor. Patient's roommate reports patient said he needed to use the restroom and got up from bed to do so. Roommate reports he noted patient's breathing sounded more labored and rapid than usual. As patient attempted to walk across room, neighbor reports he witnessed the patient begin to syncopize, and as he was in close proximity, managed to brace patient's descent to the ground so that patient did not sustain trauma during fall. Per nursing, patient and environment did not show any signs of trauma. Upon arrival, patient had been transferred to bed, placed in Trendelenburg position. Initial vitals showed BP of 97/64 with a HR of 106. Patient is conversant, reports he is confused and has no recollection of events. Patient was noted to have had an episode of fecal incontinence; patient confirms he was attempting to get to the restroom just prior to event. Patient reports chest pressure, greater than on admission, SOB, weakness and confusion. Patient denies trauma to head, history of seizures, vision changes, sensory/motor deficits. - Neurological Status (Select all that apply): Alert, Responsive, Oriented, Verbal, Follows Commands - Respiratory Oxygen Delivery Method: Nasal Cannula @L/min Oxygen Flow Rate: 3 - Constitutional Appears: In Acute Distress, Confused - Head Head Exam: ATRAUMATIC, NORMAL INSPECTION, NORMOCEPHALIC - Eyes Eye Exam: EOMI, Normal appearance - Respiratory Exam Respiratory Exam: Decreased Breath Sounds, NORMAL BREATHING PATTERN. absent: Accessory Muscle Use, Respiratory Distress - Cardiovascular Exam Cardiovascular Exam: Tachycardia, REGULAR RHYTHM - GI/Abdominal Exam GI & Abdominal Exam: Soft, Normal Bowel Sounds. absent: Distended, Tenderness - Neurological Exam Neurological Exam: Alert, Awake - Extremities Exam Extremities Exam: Normal Inspection. absent: Calf Tenderness, Pedal Edema Plan - Assessment of Findings&Treatment Plan DIAGNOSTIC SALES SPECIALIST called on pt w/ pmhx of CHF(EF~13%) and HTN, s/p syncopal event R/O sepsis, acute cardiac event -leukocytosis 15.9 -normothermic -lactate 1.8 -f/u blood, urine cxs -start IV abx, vanco/zosyn -keep pt on telemetry -Troponin neg x1 -f/u EKG report, prelim review consistent w/ prior -cardiology consult, Dr. Mccarty in lieu of Dr. Espinal -hypovolemia: decrease lasix to 40mg ivp qd from BID, with holding parameters -given D50 1 amp(BG 105) -IVF bolus NS 500cc -fall precautions -f/u am labs Discussed with Dr. Main -Vesna Wallis, PGY-1 <Cristo Main - Last Filed: 04/30/18 23:48> DIAGNOSTIC SALES SPECIALIST Nurses Assessment - Vital Signs Vital Signs: Rapid Response Vital Sign Blood Pressure 97/64 Pulse Rate 106 Respiratory Rate 22 Temperature 97.4 F Oxygen Saturation 100 - Vital Signs at end of DIAGNOSTIC SALES SPECIALIST Vital Signs at end of DIAGNOSTIC SALES SPECIALIST: Rapid Response End Vital Sign Blood Pressure 101/68 Pulse Rate 88 Respiratory Rate 20 Temperature 97.2 F O2 Sat by Pulse Oximetry 100 Attending/Attestation - Attestation I have personally seen and examined this patient.: Yes I have fully participated in the care of the patient.: Yes I have reviewed all pertinent clinical information, including history, physical exam and plan: Yes
[2018-04-25 18:05] LABS: CK-MB 0.54 ng/mL (0.0-3.38)
[2018-04-25] MEDS: Piperacill/Tazo 3.375gm in Dex 3.375 GM/50 ML BAG IVPB SCH (18:21)
[2018-04-25 18:25] LABS: ALB/GLOB RATIO 1.5 (1.0-2.1); ALBUMIN 3.8 g/dL (3.5-5.0); ALT/SGPT 52 U/L (21-72); AST/SGOT 39 U/L (17-59); BLOOD UREA NITROGEN 32 mg/dL (9-20); CALCIUM 8.5 mg/dl (8.6-10.4); GFR NON-AFRICAN AMERICAN 57
[2018-04-25] MEDS: Vancomycin 1 gm/NS 200 ml 1 GM/200 ML BAG IVPB SCH (19:21)
[2018-04-25 20:19] LABS: SQUAMOUS EPITHIAL < 1 /hpf (0-5); URINE BILIRUBIN NEGATIVE (NEGATIVE); URINE BLOOD NEGATIVE (NEGATIVE); URINE CLARITY Clear (Clear); URINE COLOR Yellow (YELLOW); URINE GLUCOSE (UA) NORMAL (Normal); URINE HYALINE CAST 0-2 /lpf (0-2); URINE LEUKOCYTE ESTERASE NEG Leu/uL (Negative); URINE PROTEIN NEGATIVE (NEGATIVE); URINE UROBILINOGEN NORMAL mg/dL (0.2-1.0)
--- NOTE | 2018-04-25 21:51 | CP.PCM.CON ---
History of Present Illness - History of Present Illness History of Present Illness: 37 M with hx of Acute on Chronic systolic CHF mainly due to non compliance Patient state can't afford medications IV Lasix Social service consult for aid Systolic CHF mgt Patient is a 37 year old male with past medical history of CHF, HTN, HLD, cholecystitis, medication noncompliance presenting to the ED for worsening SOB with associated dry cough for the past 2 weeks. He also endorses worsening abdominal distention which labors his breathing. Patient reports that he has not been on any home medications for the last 2 months as he cannot afford them. He was given a life vest 4-5 months ago but state he had to return it. He states he comes to the ED about once per month for the same symptoms, his last hospitilzation for CHF exacerbation was in January. Previous ECHO demonstrated LV global hypokinesis with EF of 15%. No fevers/chills, headaches, dizziness, acute changes in vision, chest pain, palpitations, abdominal pain, n/v/d/c, dysuria, or changes in stool. PMHx: CHF, HTN, HLD, cholecystitis, medication noncompliance PSHx: denies Allergies: NKDA Home Medications: No home meds for last 2 months. ASA 81 PO daily, Lasix 20 mg PO daily, Lisinopril 20 mg PO daily, Spironolactone 25 mg PO daily, Coreg 3.125 mg PO daily, Crestor 5 mg PO HS Family Hx: Father and Grandfather - CHF, father due to complications at age 48, Mother--HTN Social Hx: Recently quit smoking, but smoked for approximately 20 years, 2 packs per day. Patient states he no longer drinks alcohol, used to drink once per week. Unemployed, lives with family, supported financially by his Aundawson Flores. Emergency Contact: Aundawson Flores Present on Admission - Present on Admission Any Indicators Present on Admission: No Review of Systems - Review of Systems All systems: reviewed and no additional remarkable complaints except Review of Systems: as per HPI Meds Allergies/Adverse Reactions: Allergies Allergy/AdvReac Type Severity Reaction Status Date / Time No Known Allergies Allergy Verified 02/08/18 09:55 Physical Exam - Constitutional Appears: Non-toxic - Head Exam Head Exam: ATRAUMATIC, NORMAL INSPECTION, NORMOCEPHALIC - Eye Exam Eye Exam: EOMI, Normal appearance, PERRL Pupil Exam: NORMAL ACCOMODATION - ENT Exam ENT Exam: Mucous Membranes Moist, Normal Exam - Neck Exam Neck exam: Positive for: Full Rom, Normal Inspection. Negative for: Tenderness Additional comments: +JVD - Respiratory Exam Respiratory Exam: Rhonchi. absent: Accessory Muscle Use, Rales, Wheezes, S tridor - Cardiovascular Exam Cardiovascular Exam: Tachycardia, +S1, +S2, Systolic Murmur - GI/Abdominal Exam GI & Abdominal Exam: Distended, Normal Bowel Sounds, Soft. absent: Firm, Guarding, Tenderness - Extremities Exam Extremities exam: Positive for: normal capillary refill, pedal edema, pedal pulses present. Negative for: calf tenderness - Back Exam Back exam: NORMAL INSPECTION - Neurological Exam Neurological exam: Alert, CN II-XII Intact, Oriented x3 - Skin Skin Exam: Dry, Intact, Normal Color, Warm Past Patient History - Past Medical History & Family History Past Medical History?: Yes - Past Social History Smoking Status: Former Smoker - CARDIAC Hx Congestive Heart Failure: Yes Hx Hypertension: Yes Hx Pacemaker: Yes - PULMONARY Hx Respiratory Disorders: Yes Hx Pulmonary Edema: Yes - NEUROLOGICAL Hx Neurological Disorder: No - HEENT Hx HEENT Problems: No - RENAL Hx Chronic Kidney Disease: No - ENDOCRINE/METABOLIC Hx Endocrine Disorders: No - HEMATOLOGICAL/ONCOLOGICAL Hx Blood Disorders: No - INTEGUMENTARY Hx Dermatological Problems: No - MUSCULOSKELETAL/RHEUMATOLOGICAL Hx Musculoskeletal Disorders: No Hx Falls: No - GASTROINTESTINAL Hx Gall Bladder Disease: Yes (choleystitis) - GENITOURINARY/GYNECOLOGICAL Hx Genitourinary Disorders: No - PSYCHIATRIC Hx Substance Use: No - SURGICAL HISTORY Hx Surgeries: No - ANESTHESIA Hx Anesthesia: Yes Hx Anesthesia Reactions: No Hx Malignant Hyperthermia: No Meds Allergies/Adverse Reactions: Allergies Allergy/AdvReac Type Severity Reaction Status Date / Time No Known Allergies Allergy Verified 02/08/18 09:55 - Medications Medications: Current Medications Aspirin (Aspirin Chewable) 81 mg PO DAILY [facility] Last Admin: 04/25/18 09:19 Dose: 81 mg Carvedilol (Coreg) 6.25 mg PO BID [facility] Last Admin: 04/25/18 18:45 Dose: Not Given Enoxaparin Sodium (Lovenox) 40 mg SC DAILY [facility] Last Admin: 04/25/18 09:19 Dose: 40 mg Furosemide (Lasix) 40 mg IVP DAILY [facility] Piperacillin Sod/Tazobactam Sod (Zosyn 3.375 Gm Iv Premix) 3.375 gm in 50 mls @ 100 mls/hr IVPB Q8H [facility]; Protocol Last Admin: 04/25/18 18:21 Dose: 100 mls/hr Vancomycin/Sodium Chloride (Vancomycin 1 Gm/Ns 200 Ml) 1 gm in 200 mls @ 133 mls/hr IVPB Q24H [facility]ACKELIN; Protocol Stop: 04/30/18 19:01 Last Admin: 04/25/18 19:21 Dose: 133 mls/hr Lisinopril (Zestril) 10 mg PO DAILY [facility] Last Admin: 04/25/18 09:19 Dose: 10 mg Spironolactone (Aldactone) 25 mg PO DAILY [facility] Last Admin: 04/25/18 09:19 Dose: 25 mg Results - Vital Signs Recent Vital Signs: Last Vital Signs Temp 96.0 F L 04/25/18 15:00 Pulse 103 H 04/25/18 15:00 Resp 20 04/25/18 15:00 BP 85/64 L 04/25/18 15:00 Pulse Ox 100 04/25/18 15:00 - Labs Result Diagrams: 04/27/18 07:06 04/27/18 07:06 Labs: Laboratory Results - last 24 hr 04/25/18 04/25/18 04/25/18 07:00 07:00 15:51 WBC 10.8 RBC 4.75 Hgb 12.7 Hct 41.7 MCV 87.6 MCH 26.6 L MCHC 30.4 L RDW 18.7 H Plt Count 362 MPV 8.7 Neut % (Auto) 84.2 H Lymph % (Auto) 9.7 L [place] % (Auto) 6.0 Eos % (Auto) 0.0 Baso % (Auto) 0.1 Neut # (Auto) 9.1 H Lymph # (Auto) 1.0 [place] # (Auto) 0.6 Eos # (Auto) 0.0 Baso # (Auto) 0.0 Neutrophils % (Manual) 76 H Band Neutrophils % 2 Lymphocytes % (Manual) 9 L Reactive Lymphs % 2 H Monocytes % (Manual) 10 Basophils % (Manual) 1 Platelet Estimate Normal Polychromasia Slight Hypochromasia (manual) Slight Poikilocytosis (manual Slight Anisocytosis (manual) Slight [place]aura Cells Slight Sodium 136 Potassium 4.3 Chloride 103 Carbon Dioxide 25 Anion Gap 13 BUN 25 H Creatinine 1.0 Est GFR ( Amer) > 60 Est GFR (Non-Af Amer) > 60 POC Glucose (mg/dL) 105 Random Glucose 104 Lactic Acid Calcium 8.8 Phosphorus Magnesium Total Bilirubin 1.5 H AST 53 ALT 57 Alkaline Phosphatase 55 Total Creatine Kinase CK-MB (Mass) Troponin I Total Protein 7.1 Albumin 3.9 Globulin 3.2 Albumin/Globulin Ratio 1.2 Urine Color Urine Clarity Urine pH Ur Specific [place] Urine Protein Urine Glucose (UA) Urine Ketones Urine Blood Urine Nitrate Urine Bilirubin Urine Urobilinogen Ur Leukocyte Esterase Urine WBC (Auto) Urine RBC (Auto) Ur Squamous Epith Cells Hyaline Casts 04/25/18 04/25/18 04/25/18 16:07 16:07 16:50 WBC 15.9 H RBC 4.92 Hgb 13.4 Hct 43.2 MCV 87.9 MCH 27.2 MCHC 30.9 L RDW 17.7 H Plt Count 318 MPV 8.6 Neut % (Auto) 75.4 H Lymph % (Auto) 16.1 L [place] % (Auto) 8.1 Eos % (Auto) 0.0 Baso % (Auto) 0.4 Neut # (Auto) 12.0 H Lymph # (Auto) 2.6 [place] # (Auto) 1.3 H Eos # (Auto) 0.0 Baso # (Auto) 0.1 Neutrophils % (Manual) Band Neutrophils % Lymphocytes % (Manual) Reactive Lymphs % Monocytes % (Manual) Basophils % (Manual) Platelet Estimate Polychromasia Hypochromasia (manual) Poikilocytosis (manual Anisocytosis (manual) [place] Cells Sodium 135 Potassium 5.2 Chloride 105 Carbon Dioxide 16 L Anion Gap 19 BUN 32 H Creatinine 1.4 Est GFR ( Amer) > 60 Est GFR (Non-Af Amer) 57 POC Glucose (mg/dL) Random Glucose 464 H* D Lactic Acid 1.8 Calcium 8.5 L Phosphorus 5.3 H Magnesium 2.2 Total Bilirubin 1.2 AST 39 ALT 52 Alkaline Phosphatase 49 Total Creatine Kinase 82 CK-MB (Mass) 0.54 Troponin I 0.0150 Total Protein 6.3 Albumin 3.8 Globulin 2.5 Albumin/Globulin Ratio 1.5 Urine Color Urine Clarity Urine pH Ur Specific [place] Urine Protein Urine Glucose (UA) Urine Ketones Urine Blood Urine Nitrate Urine Bilirubin Urine Urobilinogen Ur Leukocyte Esterase Urine WBC (Auto) Urine RBC (Auto) Ur Squamous Epith Cells Hyaline Casts 04/25/18 04/25/18 20:08 21:00 WBC RBC Hgb Hct MCV MCH MCHC RDW Plt Count MPV Neut % (Auto) Lymph % (Auto) [place] % (Auto) Eos % (Auto) Baso % (Auto) Neut # (Auto) Lymph # (Auto) [place] # (Auto) Eos # (Auto) Baso # (Auto) Neutrophils % (Manual) Band Neutrophils % Lymphocytes % (Manual) Reactive Lymphs % Monocytes % (Manual) Basophils % (Manual) Platelet Estimate Polychromasia Hypochromasia (manual) Poikilocytosis (manual Anisocytosis (manual) Isaura Cells Sodium Potassium Chloride Carbon Dioxide Anion Gap BUN Creatinine Est GFR ( Amer) Est GFR (Non-Af Amer) POC Glucose (mg/dL) 100 Random Glucose Lactic Acid Calcium Phosphorus Magnesium Total Bilirubin AST ALT Alkaline Phosphatase Total Creatine Kinase CK-MB (Mass) Troponin I Total Protein Albumin Globulin Albumin/Globulin Ratio Urine Color Yellow Urine Clarity Clear Urine pH 5.0 Ur Specific [place] 1.014 Urine Protein Negative Urine Glucose (UA) Normal Urine Ketones Negative Urine Blood Negative Urine Nitrate Negative Urine Bilirubin Negative Urine Urobilinogen Normal Ur Leukocyte Esterase Neg Urine WBC (Auto) < 1 Urine RBC (Auto) < 1 Ur Squamous Epith Cells < 1 Hyaline Casts 0-2 Assessment & Plan - Assessment and Plan (Free Text) Assessment: 37 y/o male with PMHx of severe CHF (EF 15% Jan 2018) and HTN hospitalized for CHF exacerbation since 04/24. s/p CONTENT CREATION MANAGER 04/25 s/p syncopal episode and with hypotension - currently managing diuresis for CHF vs. BP. Has significant social issues such as a hx of noncompliance and lack of insurance that will need to be addressed before discharge. CHF exacerbation -Pt has been non-compliant with medications 2/2 financial constraints. 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 Echo(02/17) EF~13.5%, severe LV systolic dysfunction, dilated LV, mild MR -diuresis with lasix 40mg IV daily -> changed to lasix 20 mg IV BID per Dr. Mccarty recommendation (spoke over the phone today 04/26), holding parameter SBP < 100 -unsuccessful diuresis overnight HD2 likely 2/2 IVF given for hypotension: I: 1280, O: 450, B: 830 -Patient on core measures of severe CHF - ACEI and spironolactone. -c/w lisinopril 10mg qd -> changed to 5 mg due to hypotension, spironolactone 25mg po qd, ASA 81mg, coreg 6.25 mg BID -elevate head of bed 45 degrees, strict ins/outs, HHD, Na < 2g/day. -O2 via NC @2 L PRN. Goal > 92% O2 sat. -cardio consult, Dr. Espinal, recs appreciated s/p CONTENT CREATION MANAGER 04/25 - r/o Infection -patient's CONTENT CREATION MANAGER on 04/25 had a spike of WBC at 15.9 but afebrile. Patient hypotensive SBP 80s (see CONTENT CREATION MANAGER multdisp note 04/25 happened about 4pm). WBC 04/26 next AM downtrending to 13.9. -ordered UA (resulted negative), CXR (negative for infection) -pending bcx -patient on vancomycin 1g daily and zosyn 3.376 q8h daily starting 04/25 -trend WBC and VS History of Noncompliance/Social Issues -referral to [facility] unsuccessful. Spoke to Dr. Mojica 04/26 at 7:59am regarding patient, who confirmed non-acceptance to the program due to the red flags of 1) noncompliance 2) homelessness 3) lack of insurance. Should circumstances change, Dr. Mojica states that patient can be reconsidered. Dr. Mojica's number: [phone]. Program number: [phone] (Tita Almodovar). [email or web address] -SW being consulted - will need to speak to pharmacy about medication coverage and possibly get him to be a patient at [facility] Tachycardia -EKG on admission: sinus tach @128. Patient denies chest pain and palpitations. -Borderline (100-105) on tele, consistent with the EKG HTN -stable and WNL until CONTENT CREATION MANAGER called for syncopal episode and hypotension SBP 80s 04/25 (see multidisciplinary CONTENT CREATION MANAGER notes). -coreg 6.25 BID, lisinopril 5 mg qd Ppx -DVT: lovenox 40 sq daily -GI ppx: not indicated at this time
[2018-04-26 02:11] LABS: VENOUS BLOOD GAS BASE EXCESS -0.6 mmol/L (0.0-2.0); VENOUS BLOOD GAS PCO2 35 mmHg (40-60); VENOUS BLOOD GAS PO2 76 mm/Hg (30-55); VENOUS BLOOD PH 7.43 (7.32-7.43)
[2018-04-26 02:14] LABS: BASO # 0.1 K/uL (0.0-0.2); BASO % 0.5 % (0.0-2.0); EOS % 0.1 % (0.0-4.0); HEMOGLOBIN 13.6 g/dL (12.0-18.0); LYMPH # 2.2 K/uL (1.0-4.3); LYMPH % 16.1 % (20.0-40.0); MEAN CELL VOLUME 87.1 fL (80.0-94.0); MEAN CORPUSCULAR HEMOGLOBIN 27.5 pg (27.0-31.0); MEAN CORPUSCULAR HGB CONC 31.6 g/dL (33.0-37.0); MEAN PLATELET VOLUME 8.4 fL (7.2-11.7); MONO # 1.1 K/uL (0.0-0.8); MONO % 7.7 % (0.0-10.0); NEUT # 10.5 K/uL (1.8-7.0); NEUT % 75.6 % (50.0-75.0); NRBC % 0.2 % (0.0-2.0); RBC 4.93 Mil/uL (4.40-5.90); RED CELL DISTRIBUTION WIDTH 17.1 % (11.5-14.5); WHITE BLOOD COUNT 13.9 K/uL (4.8-10.8)
[2018-04-26] MEDS: Piperacill/Tazo 3.375gm in Dex 3.375 GM/50 ML BAG IVPB SCH ×3 (02:38→17:13)
[2018-04-26 03:15] LABS: ALB/GLOB RATIO 1.5 (1.0-2.1); ALBUMIN 3.9 g/dL (3.5-5.0); ALT/SGPT 59 U/L (21-72); AST/SGOT 29 U/L (17-59); BLOOD UREA NITROGEN 31 mg/dL (9-20); CALCIUM 8.6 mg/dl (8.6-10.4); GFR NON-AFRICAN AMERICAN > 60
--- NOTE | 2018-04-26 09:02 | CP.PCM.PN ---
<Valencia Menchaca - Last Filed: 04/26/18 14:35> Subjective - Date & Time of Evaluation Date of Evaluation: 04/26/18 Time of Evaluation: 09:04 - Subjective Subjective: Medicine Progress Note Patient seen and examined at bedside this morning. Patient endorses worsening SOB for the past 24 hours. Patient struggles to sleep due to the SOB. He denies fever, chills, nausea, vomiting, diarrhea, constipation. Patient had UTILITY AGENT yesterday evening 04/25 around 1600 (see Multidisciplinary UTILITY AGENT note). He said he was walking to the bathroom to have a BM, but had a BM during his syncopal episode. He denies ever having bowel incontinence until that time and was surprised how much bowel came out into his pants. He denies history of seizures. He agrees for me to discuss his condition to the physicians in the [facility], and signed the medical release form this morning. Objective - Vital Signs/Intake and Output Vital Signs (last 24 hours): Temp Pulse Resp BP Pulse Ox 97.3 F L 103 H 20 112/80 98 04/26/18 07:15 04/26/18 07:15 04/26/18 07:15 04/26/18 07:15 04/26/18 07:15 Intake and Output: 04/26/18 04/26/18 06:59 18:59 Intake Total 1280 Output Total 450 Balance 830 - Medications Medications: Current Medications Aspirin (Aspirin Chewable) 81 mg PO DAILY [facility] Last Admin: 04/25/18 09:19 Dose: 81 mg Carvedilol (Coreg) 6.25 mg PO BID [facility] Last Admin: 04/25/18 18:45 Dose: Not Given Enoxaparin Sodium (Lovenox) 40 mg SC DAILY [facility] Last Admin: 04/25/18 09:19 Dose: 40 mg Furosemide (Lasix) 40 mg IVP DAILY [facility] Piperacillin Sod/Tazobactam Sod (Zosyn 3.375 Gm Iv Premix) 3.375 gm in 50 mls @ 100 mls/hr IVPB Q8H [facility]; Protocol Last Admin: 04/26/18 02:38 Dose: 100 mls/hr Vancomycin/Sodium Chloride (Vancomycin 1 Gm/Ns 200 Ml) 1 gm in 200 mls @ 133 mls/hr IVPB Q24H [facility]; Protocol Stop: 04/30/18 19:01 Last Admin: 04/25/18 19:21 Dose: 133 mls/hr Lisinopril (Zestril) 10 mg PO DAILY [facility] Last Admin: 04/25/18 09:19 Dose: 10 mg Spironolactone (Aldactone) 25 mg PO DAILY [facility] Last Admin: 04/25/18 09:19 Dose: 25 mg - Labs Labs: 04/26/18 02:04 04/26/18 02:04 PT 22.4 SECONDS (9.7-12.2) H 04/23/18 22:31 INR 2.0 04/23/18 22:31 APTT 29 SECONDS (21-34) 04/23/18 22:31 - Constitutional Appears: Non-toxic - Head Exam Head Exam: ATRAUMATIC, NORMAL INSPECTION, NORMOCEPHALIC - Eye Exam Eye Exam: EOMI, Normal appearance - Neck Exam Neck Exam: Normal Inspection Additional comments: no JVD, negative hepatojugular reflex - Respiratory Exam Respiratory Exam: Clear to Ausculation Bilateral, Respiratory Distress (patient heavy breathing and snoring during rest before he was awakened. But patient able to speak in full sentences) - Cardiovascular Exam Cardiovascular Exam: REGULAR RHYTHM - GI/Abdominal Exam GI & Abdominal Exam: Distended, Firm, Normal Bowel Sounds. absent: Guarding, Tenderness - Extremities Exam Extremities Exam: Normal Capillary Refill, Normal Inspection. absent: Calf Tenderness - Neurological Exam Neurological Exam: Alert, Awake, Oriented x3 - Skin Skin Exam: Dry, Intact, Normal Color, Warm Assessment and Plan - Assessment and Plan (Free Text) Assessment: 37 y/o male with PMHx of severe CHF (EF 15% Jan 2018) and HTN hospitalized for CHF exacerbation since 04/24. s/p UTILITY AGENT 04/25 s/p syncopal episode and with hypotension - currently managing diuresis for CHF vs. BP. Has significant social issues such as a hx of noncompliance and lack of insurance that will need to be addressed before discharge. CHF exacerbation -Pt has been non-compliant with medications 2/2 financial constraints. 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 Echo(02/17) EF~13.5%, severe LV systolic dysfunction, dilated LV, mild MR -diuresis with lasix 40mg IV daily -> changed to lasix 20 mg IV BID per Dr. Mccarty recommendation (spoke over the phone today 04/26), holding parameter SBP < 100 -unsuccessful diuresis overnight HD2 likely 2/2 IVF given for hypotension: I: 1280, O: 450, B: 830 -Patient on core measures of severe CHF - ACEI and spironolactone. -c/w lisinopril 10mg qd -> changed to 5 mg due to hypotension, spironolactone 25mg po qd, ASA 81mg, coreg 6.25 mg BID -elevate head of bed 45 degrees, strict ins/outs, HHD, Na < 2g/day. -O2 via NC @2 L PRN. Goal > 92% O2 sat. -cardio consult, Dr. Espinal, recs appreciated s/p UTILITY AGENT 04/25 - r/o Infection -patient's UTILITY AGENT on 04/25 had a spike of WBC at 15.9 but afebrile. Patient hypotensive SBP 80s (see UTILITY AGENT multdisp note 04/25 happened about 4pm). WBC 04/26 next AM downtrending to 13.9. -ordered UA (resulted negative), CXR (negative for infection) -pending bcx -patient on vancomycin 1g daily and zosyn 3.376 q8h daily starting 04/25 -trend WBC and VS History of Noncompliance/Social Issues -referral to [facility] unsuccessful. Spoke to Dr. Mojica 04/26 at 7:59am regarding patient, who confirmed non-acceptance to the program due to the red flags of 1) noncompliance 2) homelessness 3) lack of insurance. Should circumstances change, Dr. Mojica states that patient can be reconsidered. Dr. Mojica's number: [phone]. Program number: [phone] (Tita Almodovar). [email or web address] -SW being consulted - will need to speak to pharmacy about medication coverage and possibly get him to be a patient at [facility] Tachycardia -EKG on admission: sinus tach @128. Patient denies chest pain and palpitations. -Borderline (100-105) on tele, consistent with the EKG -cardio consult, Dr. Mccarty, recs appreciated (per Dr. Espinal, he just did a brief courtesy visit on 04/25 and advised cardiology human resource professional) HTN -stable and WNL until UTILITY AGENT called for syncopal episode and hypotension SBP 80s 04/25 (see multidisciplinary UTILITY AGENT notes). -coreg 6.25 BID, lisinopril 5 mg qd Ppx -DVT: lovenox 40 sq daily -GI ppx: not indicated at this time <Cristo Main - Last Filed: 04/30/18 23:48> Objective - Vital Signs/Intake and Output Vital Signs (last 24 hours): Temp Pulse Resp BP Pulse Ox 97.3 F L 94 H 20 108/80 96 04/30/18 07:00 04/30/18 07:00 04/30/18 07:00 04/30/18 11:24 04/30/18 07:00 - Labs Labs: 04/30/18 06:32 04/30/18 06:32 PT 22.4 SECONDS (9.7-12.2) H 04/23/18 22:31 INR 2.0 04/23/18 22:31 APTT 29 SECONDS (21-34) 04/23/18 22:31 Attending/Attestation - Attestation I have personally seen and examined this patient.: Yes I have fully participated in the care of the patient.: Yes I have reviewed all pertinent clinical information, including history, physical exam and plan: Yes Notes (Text): 04/30/18 23:17 Acute on Chronic systolic heart failure ? Sepsis HTN Diuretic was cut down to lasix 40 daily due to borderline hypotension and no overt signs of fluid overload c/w decreased dose of lisinopril so far no signs of infection, will continue with empiric abx for now and de- escalate accordingly cardio on board, will f/u further recommendations
[2018-04-26] MEDS: Enoxaparin 40 mg Syringe SC SCH (11:00)
--- NOTE | 2018-04-26 11:46 | RAD ---
Date of service: 04/26/2018 HISTORY: chf exacerbation COMPARISON: Portable chest 04/25/2018. FINDINGS: LUNGS: No active pulmonary disease. PLEURA: No significant pleural effusion identified, no pneumothorax apparent. CARDIOVASCULAR: No aortic atherosclerotic calcification present. Cardiomegaly reiterated. No pulmonary vascular congestion. External pacemaker apparently removed. OSSEOUS STRUCTURES: No significant abnormalities. VISUALIZED UPPER ABDOMEN: Normal. OTHER FINDINGS: None. IMPRESSION: Stable cardiomegaly. No pulmonary vascular congestion, infiltrate or pleural effusion in the interval.
[2018-04-26] MEDS: Vancomycin 1 gm/NS 200 ml 1 GM/200 ML BAG IVPB SCH (18:44)
[2018-04-27] MEDS: Piperacill/Tazo 3.375gm in Dex 3.375 GM/50 ML BAG IVPB SCH ×3 (03:28→17:34)
[2018-04-27 07:20] LABS: BASO # 0.1 K/uL (0.0-0.2); BASO % 0.8 % (0.0-2.0); EOS # 0.1 K/uL (0.0-0.7); EOS % 0.8 % (0.0-4.0); HEMOGLOBIN 13.2 g/dL (12.0-18.0); LYMPH # 2.7 K/uL (1.0-4.3); LYMPH % 25.5 % (20.0-40.0); MEAN CELL VOLUME 87.6 fL (80.0-94.0); MEAN CORPUSCULAR HEMOGLOBIN 27.6 pg (27.0-31.0); MEAN CORPUSCULAR HGB CONC 31.5 g/dL (33.0-37.0); MEAN PLATELET VOLUME 9.2 fL (7.2-11.7); MONO # 0.6 K/uL (0.0-0.8); NEUT # 7.1 K/uL (1.8-7.0); NEUT % 66.9 % (50.0-75.0); NRBC % 0.3 % (0.0-2.0); RBC 4.77 Mil/uL (4.40-5.90); RED CELL DISTRIBUTION WIDTH 17.3 % (11.5-14.5); WHITE BLOOD COUNT 10.6 K/uL (4.8-10.8)
[2018-04-27 08:02] LABS: ALB/GLOB RATIO 1.3 (1.0-2.1); ALBUMIN 3.5 g/dL (3.5-5.0); ALT/SGPT 40 U/L (21-72); AST/SGOT 34 U/L (17-59); BLOOD UREA NITROGEN 29 mg/dL (9-20); CALCIUM 8.3 mg/dl (8.6-10.4); GFR NON-AFRICAN AMERICAN > 60
--- NOTE | 2018-04-27 08:54 | CP.PCM.PN ---
Subjective - Date & Time of Evaluation Date of Evaluation: 04/27/18 Time of Evaluation: 08:30 - Subjective Subjective: Patient had just woken up this morning. He was not in any acute distress. He denied pain, he denied palpitations He reported + he has shortness of breath when trying to walk longer distances Per review of notes from medical team yesterday there was consideration of potential transfer to [facility] however they declined at this time. Should the situation worsen they would reconsider the case He had an ELECTROTYPE SERVICER on 04/25 due to hypotention. Currently this morning the patient was not report dizzy and did not report lightheadedness. Objective - Vital Signs/Intake and Output Vital Signs (last 24 hours): Temp Pulse Resp BP Pulse Ox 97.4 F L 109 H 18 100/69 98 04/27/18 07:40 04/27/18 07:40 04/27/18 07:40 04/27/18 07:40 04/27/18 07:40 Intake and Output: 04/27/18 04/27/18 06:59 18:59 Intake Total 490 Balance 490 - Medications Medications: Current Medications Aspirin (Aspirin Chewable) 81 mg PO DAILY [facility] Last Admin: 04/26/18 10:59 Dose: 81 mg Carvedilol (Coreg) 6.25 mg PO BID [facility] Last Admin: 04/26/18 17:13 Dose: 6.25 mg Enoxaparin Sodium (Lovenox) 40 mg SC DAILY [facility] Last Admin: 04/26/18 11:00 Dose: 40 mg Furosemide (Lasix) 20 mg IVP BID [facility] Last Admin: 04/26/18 17:26 Dose: Not Given Piperacillin Sod/Tazobactam Sod (Zosyn 3.375 Gm Iv Premix) 3.375 gm in 50 mls @ 100 mls/hr IVPB Q8H [facility]; Protocol Last Admin: 04/27/18 03:28 Dose: 100 mls/hr Vancomycin/Sodium Chloride (Vancomycin 1 Gm/Ns 200 Ml) 1 gm in 200 mls @ 133 mls/hr IVPB Q24H [facility]; Protocol Stop: 04/30/18 19:01 Last Admin: 04/26/18 18:44 Dose: 133 mls/hr Lisinopril (Zestril) 5 mg PO DAILY [facility] Spironolactone (Aldactone) 25 mg PO DAILY [facility] Last Admin: 04/26/18 10:30 Dose: 25 mg - Labs Labs: 04/27/18 07:06 04/27/18 07:06 PT 22.4 SECONDS (9.7-12.2) H 04/23/18 22:31 INR 2.0 04/23/18 22:31 APTT 29 SECONDS (21-34) 04/23/18 22:31 - Constitutional Appears: No Acute Distress - Head Exam Head Exam: NORMAL INSPECTION, NORMOCEPHALIC - Eye Exam Eye Exam: EOMI, Normal appearance - ENT Exam ENT Exam: Mucous Membranes Moist - Respiratory Exam Respiratory Exam: Clear to Ausculation Bilateral, NORMAL BREATHING PATTERN - Cardiovascular Exam Cardiovascular Exam: REGULAR RHYTHM - GI/Abdominal Exam GI & Abdominal Exam: Soft, Normal Bowel Sounds. absent: Guarding, Rigid, Tenderness - Neurological Exam Neurological Exam: Alert, Awake, Oriented x3 Neuro motor strength exam: Left Upper Extremity: 5, Right Upper Extremity: 5 - Psychiatric Exam Psychiatric exam: Normal Affect, Normal Mood - Skin Skin Exam: Normal Color, Warm Assessment and Plan - Assessment and Plan (Free Text) Assessment: 37 y/o male with PMHx of severe CHF (EF 15% Jan 2018) and HTN hospitalized for CHF exacerbation since 04/24. s/p ELECTROTYPE SERVICER 04/25 s/p syncopal episode and with hypotension - currently managing diuresis for CHF vs. BP. Has significant social issues such as a hx of noncompliance and lack of insurance that will need to be addressed before discharge. CHF exacerbation 04/27: This morning not reporting shortness of breath at rest however does have with exertion. Because of ELECTROTYPE SERVICER on 04/25 with low BP medications changed. Currently this morning systolic BP was 100, on telemetry HR ranges in the 90 to 110 range sinus. -Pt has been non-compliant with medications 2/2 financial constraints. 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 Echo(02/17) EF~1 3.5%, severe LV systolic dysfunction, dilated LV, mild MR -diuresis with lasix 40mg IV daily -> changed to lasix 20 mg IV BID per Dr. Mccarty recommendation (spoke over the phone today 04/26), holding parameter SBP < 100 -unsuccessful diuresis overnight HD2 likely 2/2 IVF given for hypotension: I: 1280, O: 450, B: 830 -Patient on core measures of severe CHF - ACEI and spironolactone. -c/w lisinopril 10mg qd -> changed to 5 mg due to hypotension, spironolactone 25mg po qd, ASA 81mg, coreg 6.25 mg BID -elevate head of bed 45 degrees, strict ins/outs, HHD, Na < 2g/day. -O2 via NC @2 L PRN. Goal > 92% O2 sat. s/p ELECTROTYPE SERVICER 04/25 04/27: blood cultures negative 24 hrs. Afebrile. WBC is 10.6. He denies fevers or chills. If remains stable then will consider stopping IB abx tommorow. -patient's ELECTROTYPE SERVICER on 04/25 had a spike of WBC at 15.9 but afebrile. Patient hypotensive SBP 80s (see ELECTROTYPE SERVICER multdisp note 04/25 happened about 4pm). WBC 04/26 next AM downtrending to 13.9. -ordered UA (resulted negative), CXR (negative for infection) -patient on vancomycin 1g daily and zosyn 3.376 q8h daily starting 04/25 History of Noncompliance/Social Issues -referral to [facility]plant Program unsuccessful. Spoke to Dr. Mojica 04/26 at 7:59am regarding patient, who confirmed non-acceptance to the program due to the red flags of 1) noncompliance 2) homelessness 3) lack of insurance. Should circumstances change, Dr. Mojica states that patient can be reconsidered. Dr. Mojica's number: [phone]. Program number: [phone] (Tita Almodovar). [email or web address] -SW being consulted - will need to speak to pharmacy about medication coverage and possibly get him to be a patient at [facility] Tachycardia 04/27: HR on telemetry is sinus in the 90s to 110s -EKG on admission: sinus tach @128. Patient denies chest pain and palpitations. -Borderline (100-105) on tele, consistent with the EKG -cardio consult, Dr. Mccarty, recs appreciated (per Dr. Espinal, he just did a brief courtesy visit on 04/25 and advised cardiology reinforced concrete inspector) HTN 04/27: Systolic BP now in the mid 90s to 100s. -stable and WNL until ELECTROTYPE SERVICER called for syncopal episode and hypotension SBP 80s 04/25 (see multidisciplinary ELECTROTYPE SERVICER notes). -coreg 6.25 BID, lisinopril 5 mg qd Ppx -DVT: lovenox 40 sq daily -GI ppx: not indicated at this time
[2018-04-27] MEDS: Enoxaparin 40 mg Syringe SC SCH (11:06)
[2018-04-27] MEDS: Vancomycin 1 gm/NS 200 ml 1 GM/200 ML BAG IVPB SCH (18:12)
[2018-04-27] MEDS ORDERED: Iohexol 240 (50 ml) PO ONE (18:30)
--- NOTE | 2018-04-27 19:40 | CP.PCM.PN ---
Subjective - Date & Time of Evaluation Date of Evaluation: 04/27/18 Time of Evaluation: 19:37 - Subjective Subjective: Patient seen and evaluated C/O Abdominal pain and vomiting Had a small bowel movemnt today C/O Abdominal distention and discomfort Recommend GI consult Physical Exam - Constitutional Appears: Non-toxic - Head Exam Head Exam: ATRAUMATIC, NORMAL INSPECTION, NORMOCEPHALIC - Eye Exam Eye Exam: EOMI, Normal appearance, PERRL Pupil Exam: NORMAL ACCOMODATION - ENT Exam ENT Exam: Mucous Membranes Moist, Normal Exam - Neck Exam Neck exam: Positive for: Full Rom, Normal Inspection. Negative for: Tenderness Additional comments: +JVD - Respiratory Exam Respiratory Exam: Rhonchi. absent: Accessory Muscle Use, Rales, Wheezes, Stridor - Cardiovascular Exam Cardiovascular Exam: Tachycardia, +S1, +S2, Systolic Murmur - GI/Abdominal Exam GI & Abdominal Exam: Distended, Normal Bowel Sounds, Soft. absent: Firm, Guarding, Tenderness - Extremities Exam Extremities exam: Positive for: normal capillary refill, pedal edema, pedal pulses present. Negative for: calf tenderness - Back Exam Back exam: NORMAL INSPECTION - Neurological Exam Neurological exam: Alert, CN II-XII Intact, Oriented x3 - Skin Skin Exam: Dry, Intact, Normal Color, Warm Objective - Vital Signs/Intake and Output Vital Signs (last 24 hours): Temp Pulse Resp BP Pulse Ox 97.4 F L 109 H 18 100/69 98 04/27/18 07:40 04/27/18 07:40 04/27/18 07:40 04/27/18 07:40 04/27/18 07:40 - Medications Medications: Current Medications Aspirin (Aspirin Chewable) 81 mg PO DAILY [facility] Last Admin: 04/27/18 11:06 Dose: 81 mg Carvedilol (Coreg) 6.25 mg PO BID [facility] Last Admin: 04/27/18 17:34 Dose: 6.25 mg Enoxaparin Sodium (Lovenox) 40 mg SC DAILY [facility] Last Admin: 04/27/18 11:06 Dose: 40 mg Furosemide (Lasix) 20 mg IVP BID [facility] Last Admin: 04/27/18 17:37 Dose: Not Given Piperacillin Sod/Tazobactam Sod (Zosyn 3.375 Gm Iv Premix) 3.375 gm in 50 mls @ 100 mls/hr IVPB Q8H [facility]; Protocol Last Admin: 04/27/18 17:34 Dose: 100 mls/hr Vancomycin/Sodium Chloride (Vancomycin 1 Gm/Ns 200 Ml) 1 gm in 200 mls @ 133 mls/hr IVPB Q24H [facility]; Protocol Stop: 04/30/18 19:01 Last Admin: 04/27/18 18:12 Dose: 133 mls/hr Lisinopril (Zestril) 5 mg PO DAILY [facility] Last Admin: 04/27/18 11:06 Dose: 5 mg Spironolactone (Aldactone) 25 mg PO DAILY [facility] Last Admin: 04/27/18 11:05 Dose: 25 mg - Labs Labs: 04/27/18 07:06 04/27/18 07:06 PT 22.4 SECONDS (9.7-12.2) H 04/23/18 22:31 INR 2.0 04/23/18 22:31 APTT 29 SECONDS (21-34) 04/23/18 22:31 Assessment and Plan - Assessment and Plan (Free Text) Assessment: Chronic systolic CHF Non ischemic CMP HTN Medication non compliance due to inability to buy meds Recommend Social worke consult for help Currently with GI symptoms Recommend GI consult
[2018-04-28] MEDS: Piperacill/Tazo 3.375gm in Dex 3.375 GM/50 ML BAG IVPB SCH (02:45)
[2018-04-28 08:38] LABS: BASO # 0.1 K/uL (0.0-0.2); BASO % 0.8 % (0.0-2.0); EOS # 0.1 K/uL (0.0-0.7); EOS % 0.6 % (0.0-4.0); LYMPH % 32.6 % (20.0-40.0); MEAN CELL VOLUME 86.2 fL (80.0-94.0); MEAN CORPUSCULAR HEMOGLOBIN 27.1 pg (27.0-31.0); MEAN CORPUSCULAR HGB CONC 31.4 g/dL (33.0-37.0); MEAN PLATELET VOLUME 8.7 fL (7.2-11.7); MONO # 0.7 K/uL (0.0-0.8); MONO % 7.2 % (0.0-10.0); NEUT # 5.3 K/uL (1.8-7.0); NEUT % 58.8 % (50.0-75.0); NRBC % 0.2 % (0.0-2.0); RBC 4.8 Mil/uL (4.40-5.90); WHITE BLOOD COUNT 9.1 K/uL (4.8-10.8)
[2018-04-28 08:55] LABS: ALB/GLOB RATIO 1.4 (1.0-2.1); ALBUMIN 3.8 g/dL (3.5-5.0); ALT/SGPT 46 U/L (21-72); AST/SGOT 30 U/L (17-59); BLOOD UREA NITROGEN 22 mg/dL (9-20); CALCIUM 8.8 mg/dl (8.6-10.4); GFR NON-AFRICAN AMERICAN > 60
[2018-04-28] MEDS: Ciprofloxacin 400mg/200ml D5W 400 MG/200 ML BAG IVPB SCH ×2 (09:50→21:15)
[2018-04-28] MEDS: Enoxaparin 40 mg Syringe SC SCH (09:55)
--- NOTE | 2018-04-28 10:15 | CP.PCM.PN ---
Subjective - Date & Time of Evaluation Date of Evaluation: 04/28/18 Time of Evaluation: 09:50 - Subjective Subjective: Patient was seen and examined this morning He reported he still has sensation of abdominal bloating and nausea The CT scan reported colitis as well as cholecytitis. He was placed on IV abx when he came in, the WBC has been decreasing nevertheless will get Cipro and Flagyl Per advice of cardiology will also get GI evaluation With reguards to his breathing - he reports that it is the same He still gets very short of breath with exertion. As mentioned previously there was consideration of potential transfer to [facility] however they declined at this time. Should the situation worsen they would reconsider the case. He had an CLOTHING SORTER on 04/25 due to hypotention. This morning the patient was not report dizzy and did not report lightheadedness. Objective - Vital Signs/Intake and Output Vital Signs (last 24 hours): Temp Pulse Resp BP Pulse Ox 97.5 F L 96 H 20 133/75 100 04/28/18 07:35 04/28/18 07:35 04/28/18 07:35 04/28/18 09:49 04/28/18 07:35 Intake and Output: 04/28/18 04/28/18 06:59 18:59 Intake Total 350 Balance 350 - Medications Medications: Current Medications Aspirin (Aspirin Chewable) 81 mg PO DAILY [facility] Last Admin: 04/28/18 09:53 Dose: 81 mg Carvedilol (Coreg) 6.25 mg PO BID [facility] Last Admin: 04/28/18 09:53 Dose: 6.25 mg Enoxaparin Sodium (Lovenox) 40 mg SC DAILY [facility] Last Admin: 04/28/18 09:55 Dose: 40 mg Furosemide (Lasix) 20 mg IVP BID [facility] Last Admin: 04/28/18 09:49 Dose: 20 mg Ciprofloxacin (Cipro 400mg/200ml Dsw) 400 mg in 200 mls @ 133 mls/hr IVPB Q12H [facility]; Protocol Last Admin: 04/28/18 09:50 Dose: 133 mls/hr Metronidazole (Flagyl) 500 mg in 100 mls @ 100 mls/hr IVPB Q8H [facility]; Protocol Lisinopril (Zestril) 5 mg PO DAILY [facility] Last Admin: 04/28/18 09:54 Dose: 5 mg Spironolactone (Aldactone) 25 mg PO DAILY [facility] Last Admin: 04/28/18 09:53 Dose: 25 mg - Labs Labs: 04/28/18 08:24 04/28/18 08:24 PT 22.4 SECONDS (9.7-12.2) H 04/23/18 22:31 INR 2.0 04/23/18 22:31 APTT 29 SECONDS (21-34) 04/23/18 22:31 Assessment and Plan - Assessment and Plan (Free Text) Assessment: 37 y/o male with PMHx of severe CHF (EF 15% Jan 2018) and HTN hospitalized for CHF exacerbation since 04/24. s/p CLOTHING SORTER 04/25 s/p syncopal episode and with hypotension - currently managing diuresis for CHF vs. BP. Has significant social issues such as a hx of noncompliance and lack of insurance that will need to be addressed before discharge. CHF exacerbation 04/28: He reports at rest he is ok, however has dyspnea easily with exertion. 04/27: This morning not reporting shortness of breath at rest however does have with exertion. Because of CLOTHING SORTER on 04/25 with low BP medications changed. Currently this morning systolic BP was 100, on telemetry HR ranges in the 90 to 110 range sinus. -Pt has been non-compliant with medications 2/2 financial constraints. 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 Echo(02/17) EF~13.5%, severe LV systolic dysfunction, dilated LV, mild MR -diuresis with lasix 40mg IV daily -> changed to lasix 20 mg IV BID per Dr. Mccarty recommendation (spoke over the phone today 04/26), holding parameter SBP < 100 -Patient on core measures of severe CHF - ACEI and spironolactone. -c/w lisinopril 10mg qd -> changed to 5 mg due to hypotension, spironolactone 25mg po qd, ASA 81mg, coreg 6.25 mg BID -elevate head of bed 45 degrees, strict ins/outs, HHD, Na < 2g/day. -O2 via NC @2 L PRN. Goal > 92% O2 sat. Cholecystitis / Colitis (CLOTHING SORTER 04/25 ) 04/28: Blood pressure is better - now in 130s systolic. Considering the CT findings will continue patient on the IV abx. Currently on Cipro/Flagyl. The WBC has decreased. He remains afebrile. 04/27: blood cultures negative 24 hrs. Afebrile. WBC is 10.6. He denies fevers or chills. If remains stable then will consider stopping IB abx tommorow. -patient's CLOTHING SORTER on 04/25 had a spike of WBC at 15.9 but afebrile. Patient hypotensive SBP 80s (see CLOTHING SORTER multdisp note 04/25 happened about 4pm). WBC 04/26 next AM downtrending to 13.9. History of Noncompliance/Social Issues -referral to [facility] Program unsuccessful. Spoke to Dr. Mojica 04/26 at 7:59am regarding patient, who confirmed non-acceptance to the program due to the red flags of 1) noncompliance 2) homelessness 3) lack of insurance. Should circumstances change, Dr. Mojica states that patient can be reconsidered. Dr. Mojica's number: [phone]. Program number: [phone] (Tita Almodovar). [email or web address] -SW being consulted - will need to speak to pharmacy about medication coverage and possibly get him to be a patient at [facility] Tachycardia 04/27: HR on telemetry is sinus in the 90s to 110s -EKG on admission: sinus tach @128. Patient denies chest pain and palpitations. -Borderline (100-105) on tele, consistent with the EKG -cardio consult, Dr. Mccarty, recs appreciated (per Dr. Espinal, he just did a brief courtesy visit on 04/25 and advised cardiology cotton header) HTN 04/28: Previously was hypotensive, the systolic is improved now. 04/27: Systolic BP now in the mid 90s to 100s. -stable and WNL until CLOTHING SORTER called for syncopal episode and hypotension SBP 80s 04/25 (see multidisciplinary CLOTHING SORTER notes). -coreg 6.25 BID, lisinopril 5 mg qd Ppx -DVT: lovenox 40 sq daily -GI ppx: not indicated at this time
--- NOTE | 2018-04-28 10:19 | CP.PCM.CON ---
History of Present Illness - History of Present Illness History of Present Illness: Asked by hospitalist team for a GI consultation on this patient. 37 year old male with history of CHF, HTN, hyperlipidemia who was initially admitted to hospital 4 days ago for complaint of cough and dyspnea on exertion, was being treated for CHF exacerbation. GI called for evaluation of abdominal pain and diarrhea. He reports chronic intermittent abdominal pain for the past 6 months and describes a generalized epigastric/RUQ pain, 5/10 intensity, at times worsened by food consumption. During this time he also reports ongoing nausea and loose bowel movements up to 3 times per day. He denies blood in stool, fever/chills, weight loss, recent travel, sick contacts. No prior endoscopic evaluation. Social history: previous smoker (recently quit), no ETOH use Family history: breast cancer (grandmother) Review of Systems - Review of Systems Review of Systems: - All other comprehensive 12 point review of systems performed, negative - Constitutional Constitutional: Lethargy - Cardiovascular Cardiovascular: Dyspnea - Respiratory Respiratory: absent: Cough, Dyspnea, Hemoptysis, Dyspnea on Exertion, Wheezing, Snoring, Stridor, Pain on Inspiration, Chest Congestion, Excessive Mucous Production, Change in Mucous Color, Pain with Coughing, Other - Gastrointestinal Gastrointestinal: Abdominal Pain, Loose Stools - Musculoskeletal Musculoskeletal: absent: Abnormal Gait, Arthralgias, Atrophy, Back Pain, Deformity, Joint Swelling, Limited Range of Motion, Loss of Height, Muscle Cramps, Muscle Weakness, Myalgias, Neck Pain, Numbness, Radiating Pain into Limb, Stiffness, Tingling, Other - Neurological Neurological: absent: Abnormal Gait, Abnormal Hearing, Abnormal Movements, Abnormal Speech, Behavioral Changes, Burning Sensations, Confusion, Convulsions, Disequilibrium, Dizziness, Numbness, Focal Weakness, Frequent Falls, Headaches, Lack of Coordination, Loss of Vision, Memory Loss, Paresthesias, Radicular Pain, Restless Legs, Sensory Deficit, Syncope, Tingling, Tremor, Vertigo, Weakness, Other Visual Disturbances, Other Past Patient History - Past Medical History & Family History Past Medical History?: Yes - Past Social History Smoking Status: Former Smoker - CARDIAC Hx Congestive Heart Failure: Yes Hx Hypertension: Yes Hx Pacemaker: Yes - PULMONARY Hx Respiratory Disorders: Yes Hx Pulmonary Edema: Yes - NEUROLOGICAL Hx Neurological Disorder: No - HEENT Hx HEENT Problems: No - RENAL Hx Chronic Kidney Disease: No - ENDOCRINE/METABOLIC Hx Endocrine Disorders: No - HEMATOLOGICAL/ONCOLOGICAL Hx Blood Disorders: No - INTEGUMENTARY Hx Dermatological Problems: No - MUSCULOSKELETAL/RHEUMATOLOGICAL Hx Musculoskeletal Disorders: No Hx Falls: No - GASTROINTESTINAL Hx Gall Bladder Disease: Yes (choleystitis) - GENITOURINARY/GYNECOLOGICAL Hx Genitourinary Disorders: No - PSYCHIATRIC Hx Substance Use: No - SURGICAL HISTORY Hx Surgeries: No - ANESTHESIA Hx Anesthesia: Yes Hx Anesthesia Reactions: No Hx Malignant Hyperthermia: No Meds Allergies/Adverse Reactions: Allergies Allergy/AdvReac Type Severity Reaction Status Date / Time No Known Allergies Allergy Verified 02/08/18 09:55 - Medications Medications: Current Medications Aspirin (Aspirin Chewable) 81 mg PO DAILY [facility] Last Admin: 04/28/18 09:53 Dose: 81 mg Carvedilol (Coreg) 6.25 mg PO BID [facility] Last Admin: 04/28/18 09:53 Dose: 6.25 mg Enoxaparin Sodium (Lovenox) 40 mg SC DAILY [facility] Last Admin: 04/28/18 09:55 Dose: 40 mg Furosemide (Lasix) 20 mg IVP BID [facility] Last Admin: 04/28/18 09:49 Dose: 20 mg Ciprofloxacin (Cipro 400mg/200ml Dsw) 400 mg in 200 mls @ 133 mls/hr IVPB Q12H [facility]; Protocol Last Admin: 04/28/18 09:50 Dose: 133 mls/hr Metronidazole (Flagyl) 500 mg in 100 mls @ 100 mls/hr IVPB Q8H [facility]; Protocol Lisinopril (Zestril) 5 mg PO DAILY [facility] Last Admin: 04/28/18 09:54 Dose: 5 mg Spironolactone (Aldactone) 25 mg PO DAILY [facility] Last Admin: 04/28/18 09:53 Dose: 25 mg Physical Exam - Constitutional Appears: Non-toxic, No Acute Distress - Head Exam Head Exam: NORMAL INSPECTION - Eye Exam Eye Exam: EOMI, Normal appearance - ENT Exam ENT Exam: Mucous Membranes Moist - Respiratory Exam Respiratory Exam: Clear to Auscultation Bilateral - Cardiovascular Exam Cardiovascular Exam: +S1, +S2 - GI/Abdominal Exam GI & Abdominal Exam: Distended, Normal Bowel Sounds, Soft, Tenderness Additional comments: generalized tenderness to palpation, no rebound/guarding no palpable hepato/splenomegaly - Extremities Exam Extremities exam: Positive for: normal inspection - Neurological Exam Neurological exam: Alert, CN II-XII Intact, Oriented x3, Reflexes Normal - Psychiatric Exam Psychiatric exam: Normal Affect, Normal Mood - Skin Skin Exam: Dry, Intact, Normal Color, Warm Results - Vital Signs Recent Vital Signs: Last Vital Signs Temp 97.5 F L 04/28/18 07:35 Pulse 96 H 04/28/18 07:35 Resp 20 04/28/18 07:35 BP 133/75 04/28/18 09:49 Pulse Ox 100 04/28/18 07:35 - Labs Result Diagrams: 04/28/18 08:24 04/28/18 08:24 Labs: Laboratory Results - last 24 hr 04/28/18 04/28/18 08:24 08:24 WBC 9.1 RBC 4.80 Hgb 13.0 Hct 41.4 MCV 86.2 MCH 27.1 MCHC 31.4 L RDW 17.0 H Plt Count 405 H MPV 8.7 Neut % (Auto) 58.8 Lymph % (Auto) 32.6 Creek % (Auto) 7.2 Eos % (Auto) 0.6 Baso % (Auto) 0.8 Neut # (Auto) 5.3 Lymph # (Auto) 3.0 Creek # (Auto) 0.7 Eos # (Auto) 0.1 Baso # (Auto) 0.1 Sodium 135 Potassium 4.3 Chloride 104 Carbon Dioxide 21 L Anion Gap 14 BUN 22 H Creatinine 1.3 Est GFR ( Amer) > 60 Est GFR (Non-Af Amer) > 60 Random Glucose 92 Calcium 8.8 Phosphorus 3.7 Magnesium 2.2 Total Bilirubin 1.3 AST 30 ALT 46 Alkaline Phosphatase 52 Total Protein 6.4 Albumin 3.8 Globulin 2.6 Albumin/Globulin Ratio 1.4 Assessment & Plan - Assessment and Plan (Free Text) Assessment: Dyspnea - CHF exacerbation HTN Hyperlipidemia Abdominal pain, diarrhea CT imaging reviewed by me showing contracted gallbladder with norbert-cholecystic fluid. Study performed without PO contrast, not adequate to assess for bowel wall thickening. Plan: - Liquid diet as tolerated - Obtain stool studies (culture, c-difficile) - Continue with antibiotic therapy, suggest abdominal US for more optimal GB evaluation - Follow up cardiology recommendations - Will continue to monitor patient clinical course
[2018-04-28] MEDS: metroNIDAZOLE IV 500 mg/100 ml 500 MG/100 ML BAG IVPB SCH ×2 (12:55→19:00)
--- NOTE | 2018-04-28 17:14 | CT ---
CT abdomen and pelvis HISTORY: Abdominal pain. Comparison. Technique: Multiple contiguous axial images were performed through the abdomen and pelvis without the use of in intravenous contrast. Subsequently, sagittal and coronal reformatted images were obtained. This CT exam was performed using one or more of the following dose reduction techniques: Automated exposure control, adjustment of the mA and/or kV according to patient size, and/or use of iterative reconstruction technique. Findings: Focal consolidation with bronchiectasis noted within the posterior aspect of the right lower lobe. No pleural or pericardial effusion. Prominent heart. Prominent liver with mild fatty infiltration. Contracted gallbladder which appears thick-walled and edematous. Correlation with right upper quadrant ultrasound may be helpful to exclude acute cholecystitis. Spleen is preserved. Adrenal glands are preserved. Pancreas is preserved. Upper abdominal bowel is preserved. Right kidney: No calculi or hydronephrosis. Left Kidney: No calculi or hydronephrosis. Urinary bladder is preserved. Prostate and seminal vesicles are preserved. Clinic diverticulosis. Mild thickening of the transverse and descending colon which may represent some mild acute infectious and or inflammatory changes. Appendix is within normal limits. Few shotty para-aortic and mesenteric lymph nodes. Few shotty inguinal lymph nodes. Degenerative changes the spine. Impression: 1. Findings suspicious for acute cholecystitis. Please correlate clinically and if indicated this could be further evaluated with right upper quadrant sonogram or HIDA scan. 2. Focal thickening of the transverse and descending colon suggestive for acute infectious and or inflammatory changes and or colitis. Clinical correlation. 3. Additional findings as above. A preliminary report was generated at 10:29 p.m. on 04/27/[address] Alfie Houston from [email or web address]
--- NOTE | 2018-04-28 18:42 | US ---
Abdominal ultrasound HISTORY: Gallbladder wall thickening. Comparison: None available. Technique: Real-time sonography was performed through the abdomen. Findings: Liver: Prominent measuring 18 centimeters in length. Increased echogenicity of the hepatic parenchymal cortex suggestive for fatty infiltration versus hepatic parenchymal disease. Clinical correlation. Gallbladder: Thick-walled measuring up to 1 centimeters. Gallbladder wall edema. No gross calculi or sludge. Negative sonographic Montana's sign. Common bile duct measures 4 millimeters, within normal limits. Limited visualization of the pancreas. Spleen measures 9 centimeters in length, within normal limits. Visualized aorta and IVC are grossly preserved. Right kidney: 10.8 x 3.6 x 4.4 centimeters. No calculi or hydronephrosis. Left Kidney: 10.4 x 5.3 x 5.2 centimeters. No calculi or hydronephrosis. Impression: 1. Prominent gallbladder wall thickening measuring up to 1 centimeters with associated gallbladder wall edema. No gross calculi or sludge. Negative sonographic Montana's sign. These findings are equivocal and may represent acalculous cholecystitis. Correlation with nuclear medicine study may be helpful if clinically indicated. 2. Hepatomegaly with increased echogenicity of the hepatic parenchymal cortex suggestive for fatty infiltration versus hepatic parenchymal disease. Clinical correlation. 3. Pancreas not well visualized.
[2018-04-29] MEDS: metroNIDAZOLE IV 500 mg/100 ml 500 MG/100 ML BAG IVPB SCH ×3 (02:12→17:58)
[2018-04-29 07:46] LABS: BASO # 0.1 K/uL (0.0-0.2); BASO % 1.1 % (0.0-2.0); EOS # 0.1 K/uL (0.0-0.7); EOS % 0.6 % (0.0-4.0); HEMOGLOBIN 12.8 g/dL (12.0-18.0); LYMPH # 2.3 K/uL (1.0-4.3); LYMPH % 27.5 % (20.0-40.0); MEAN CELL VOLUME 86.6 fL (80.0-94.0); MEAN CORPUSCULAR HEMOGLOBIN 27.7 pg (27.0-31.0); MEAN PLATELET VOLUME 8.5 fL (7.2-11.7); MONO # 0.6 K/uL (0.0-0.8); MONO % 7.5 % (0.0-10.0); NEUT # 5.2 K/uL (1.8-7.0); NEUT % 63.3 % (50.0-75.0); NRBC % 0.1 % (0.0-2.0); RBC 4.61 Mil/uL (4.40-5.90); RED CELL DISTRIBUTION WIDTH 17.4 % (11.5-14.5); WHITE BLOOD COUNT 8.3 K/uL (4.8-10.8)
[2018-04-29 08:06] LABS: ALB/GLOB RATIO 1.4 (1.0-2.1); ALBUMIN 3.5 g/dL (3.5-5.0); ALT/SGPT 48 U/L (21-72); AST/SGOT 32 U/L (17-59); BLOOD UREA NITROGEN 18 mg/dL (9-20); CALCIUM 8.5 mg/dl (8.6-10.4); GFR NON-AFRICAN AMERICAN > 60
--- NOTE | 2018-04-29 08:50 | CP.PCM.PN ---
<Regan Stroud - Last Filed: 04/29/18 14:38> Subjective - Date & Time of Evaluation Date of Evaluation: 04/29/18 Time of Evaluation: 08:50 - Subjective Subjective: PGY1 Progress Note for Dr. Sharma Patient was seen and evaluated at bedside this morning. No acute events overnight. Patient is feeling better today. Last BM was last night. Patient admits to diarrhea. Per Patient, his last vomiting was more than 24hrs ago. No fevers, chills, chest pain, shortness of breath, numbness/tingling in lower extremities, headache, and/or dizziness. Later in the afternoon, Patient was re-evaluated, as he had 1 episode of vomit ing clear/yellow liquid. Objective - Vital Signs/Intake and Output Vital Signs (last 24 hours): Temp Pulse Resp BP Pulse Ox 97.2 F L 105 H 18 112/79 98 04/29/18 07:00 04/29/18 07:00 04/29/18 07:00 04/29/18 07:00 04/29/18 07:00 Intake and Output: 04/29/18 04/29/18 06:59 18:59 Intake Total 110 Balance 110 - Medications Medications: Current Medications Aspirin (Aspirin Chewable) 81 mg PO DAILY [facility] Last Admin: 04/28/18 09:53 Dose: 81 mg Carvedilol (Coreg) 6.25 mg PO BID [facility] Last Admin: 04/28/18 17:52 Dose: Not Given Diphenhydramine HCl (Benadryl) 50 mg PO Q8 PRN PRN Reason: Itching / Pruritus Enoxaparin Sodium (Lovenox) 40 mg SC DAILY [facility] Last Admin: 04/28/18 09:55 Dose: 40 mg Furosemide (Lasix) 20 mg IVP BID [facility] Last Admin: 04/28/18 17:52 Dose: Not Given Ciprofloxacin (Cipro 400mg/200ml Dsw) 400 mg in 200 mls @ 133 mls/hr IVPB Q12H [facility]; Protocol Last Admin: 04/28/18 21:15 Dose: 133 mls/hr Metronidazole (Flagyl) 500 mg in 100 mls @ 100 mls/hr IVPB Q8H [facility]; Protocol Last Admin: 04/29/18 02:12 Dose: 100 mls/hr Lisinopril (Zestril) 5 mg PO DAILY [facility] Last Admin: 04/28/18 09:54 Dose: 5 mg Spironolactone (Aldactone) 25 mg PO DAILY [facility] Last Admin: 04/28/18 09:53 Dose: 25 mg - Labs Labs: 04/29/18 07:32 04/29/18 07:32 PT 22.4 SECONDS (9.7-12.2) H 04/23/18 22:31 INR 2.0 04/23/18 22:31 APTT 29 SECONDS (21-34) 04/23/18 22:31 Assessment and Plan - Assessment and Plan (Free Text) Assessment: 37 y/o male with PMHx of severe CHF (EF 15% Jan 2018) and HTN hospitalized for CHF exacerbation since 04/24. s/p INPATIENT AUDITOR 04/25 s/p syncopal episode and with hypotension - currently managing diuresis for CHF vs. BP. Has significant social issues such as a hx of noncompliance and lack of insurance that will need to be addressed before discharge. 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 - Echo(02/17) EF~13.5%, severe LV systolic dysfunction, dilated LV, mild MR - Diuresis with lasix 40mg IV daily -> changed to lasix 20 mg IV BID per Dr. Mccarty recommendation, holding parameter SBP < 100 - Patient on core measures of severe CHF - ACEI and spironolactone. - Continue with lisinopril 5mg qd - Spironolactone 25mg po qd - ASA 81mg, coreg 6.25 mg BID - Elevate head of bed 45 degrees, strict ins/outs, HHD, Na < 2g/day - O2 via NC @2 L PRN. Goal > 92% O2 sat Cholecystitis / Colitis (INPATIENT AUDITOR 04/25 ) - CT imaging reviewed, showing contracted gallbladder with norbert-cholecystic fluid. Mild colitis present. - US reviewed - echogenic liver, Thickened GB wall 1cm, No sludge or calculi, CBD 4mm - Liquid diet and advance as tolerated. - Continue patient on the IV abx - Currently on Cipro/Flagyl - No leukocytosis - Patient afebrile - C-diff negative - Pending Stool culture - Per GI recommendations; follow-up as out-patient for colonoscopy - Blood culture negative X72 hours - Patient's INPATIENT AUDITOR on 04/25 had a spike of WBC at 15.9 but afebrile. Patient hypotensive SBP 80s (see INPATIENT AUDITOR multdisp note 04/25 happened about 4pm). History of Noncompliance/Social Issues - Referral to [facility] unsuccessful - Spoke to Dr. Mojica 04/26 at 7:59am regarding patient, who confirmed non- acceptance to the program due to the red flags of 1) noncompliance 2) homelessness 3) lack of insurance - Should circumstances change, Dr. Mojica states that patient can be reconsidered. Dr. Mojica's number: [phone]. Program number: [phone] (Tita Almodovar). [email or web address] - SW being consulted - will need to speak to pharmacy about medication coverage and possibly get him to be a patient at [facility] Tachycardia - HR: 105 today - EKG on admission: sinus tach @128. Patient denies chest pain and palpitations. - Borderline (100-105) on tele, consistent with the EKG - Cardio consult, Dr. Mccarty, recs appreciated HTN - 04/28: Previously was hypotensive, the systolic is improved now. - INPATIENT AUDITOR called for syncopal episode and hypotension SBP 80s 04/25 (see multidisciplinary INPATIENT AUDITOR notes). - Continue Coreg 6.25 BID - Continue lisinopril 5 mg qd Ppx -DVT: lovenox 40 sq daily -GI ppx: not indicated at this time Patient seen and case discussed in detail with Dr. Edith Stroud PGY1 <Guzman Sharma - Last Filed: 04/29/18 19:54> Objective - Vital Signs/Intake and Output Vital Signs (last 24 hours): Temp Pulse Resp BP Pulse Ox 97.3 F L 96 H 20 102/78 97 04/29/18 15:23 04/29/18 15:23 04/29/18 15:23 04/29/18 15:23 04/29/18 15:23 - Medications Medications: Current Medications Aspirin (Aspirin Chewable) 81 mg PO DAILY [facility] Last Admin: 04/29/18 12:24 Dose: 81 mg Carvedilol (Coreg) 6.25 mg PO BID [facility] Last Admin: 04/29/18 17:59 Dose: 6.25 mg Diphenhydramine HCl (Benadryl) 50 mg PO Q8 PRN PRN Reason: Itching / Pruritus Enoxaparin Sodium (Lovenox) 40 mg SC DAILY [facility] Last Admin: 04/29/18 12:28 Dose: 40 mg Furosemide (Lasix) 20 mg IVP BID [facility] Last Admin: 04/29/18 12:25 Dose: 20 mg Ciprofloxacin (Cipro 400mg/200ml Dsw) 400 mg in 200 mls @ 133 mls/hr IVPB Q12H [facility]; Protocol Last Admin: 04/29/18 12:23 Dose: 133 mls/hr Metronidazole (Flagyl) 500 mg in 100 mls @ 100 mls/hr IVPB Q8H [facility]; Protocol Last Admin: 04/29/18 17:58 Dose: 100 mls/hr Lisinopril (Zestril) 5 mg PO DAILY [facility] Last Admin: 04/29/18 12:29 Dose: 5 mg Ondansetron HCl (Zofran Inj) 4 mg IVP Q8H PRN PRN Reason: Nausea/Vomiting Spironolactone (Aldactone) 25 mg PO DAILY [facility] Last Admin: 04/29/18 12:24 Dose: 25 mg - Labs Labs: 04/29/18 07:32 04/29/18 07:32 PT 22.4 SECONDS (9.7-12.2) H 04/23/18 22:31 INR 2.0 04/23/18 22:31 APTT 29 SECONDS (21-34) 04/23/18 22:31 Attending/Attestation - Attestation I have personally seen and examined this patient.: Yes I have fully participated in the care of the patient.: Yes I have reviewed all pertinent clinical information, including history, physical exam and plan: Yes Notes (Text): seen and examined by me,no complain,lying on bed with out sob,has mild abdominal discomfort He is admitted for exacerbation of chf,He follow materials and corrosion engineer Dr Espinal at clinic Patient has been non-compliant with medications due to financial constraints possible cholecystitis. spoke to Dr Dhiraj. we will try regular diet. If he tolerates discharge home and follow out pt Spoke to materials and corrosion engineer Dr Mccarty.We will discharge home on his home cardiac meds. we will talk to SW about financial issues
--- NOTE | 2018-04-29 10:19 | CP.PCM.PN ---
<Marvel Velasquez - Last Filed: 04/29/18 12:45> Subjective - Date & Time of Evaluation Date of Evaluation: 04/29/18 Time of Evaluation: 10:17 - Subjective Subjective: Patient is feeling better today. Last BM was last night, diarrhea. Last vomiting was more than 24hrs ago. No fevers or acute overnight events. Objective - Vital Signs/Intake and Output Vital Signs (last 24 hours): Temp Pulse Resp BP Pulse Ox 97.2 F L 105 H 18 112/79 98 04/29/18 07:00 04/29/18 07:00 04/29/18 07:00 04/29/18 07:00 04/29/18 07:00 Intake and Output: 04/29/18 04/29/18 06:59 18:59 Intake Total 110 Balance 110 - Medications Medications: Current Medications Aspirin (Aspirin Chewable) 81 mg PO DAILY [facility] Last Admin: 04/28/18 09:53 Dose: 81 mg Carvedilol (Coreg) 6.25 mg PO BID [facility] Last Admin: 04/28/18 17:52 Dose: Not Given Diphenhydramine HCl (Benadryl) 50 mg PO Q8 PRN PRN Reason: Itching / Pruritus Enoxaparin Sodium (Lovenox) 40 mg SC DAILY [facility] Last Admin: 04/28/18 09:55 Dose: 40 mg Furosemide (Lasix) 20 mg IVP BID [facility] Last Admin: 04/28/18 17:52 Dose: Not Given Ciprofloxacin (Cipro 400mg/200ml Dsw) 400 mg in 200 mls @ 133 mls/hr IVPB Q12H [facility]; Protocol Last Admin: 04/28/18 21:15 Dose: 133 mls/hr Metronidazole (Flagyl) 500 mg in 100 mls @ 100 mls/hr IVPB Q8H [facility]; Protocol Last Admin: 04/29/18 02:12 Dose: 100 mls/hr Lisinopril (Zestril) 5 mg PO DAILY [facility] Last Admin: 04/28/18 09:54 Dose: 5 mg Spironolactone (Aldactone) 25 mg PO DAILY [facility] Last Admin: 04/28/18 09:53 Dose: 25 mg - Labs Labs: 04/29/18 07:32 04/29/18 07:32 PT 22.4 SECONDS (9.7-12.2) H 04/23/18 22:31 INR 2.0 04/23/18 22:31 APTT 29 SECONDS (21-34) 04/23/18 22:31 - Constitutional Appears: Non-toxic, No Acute Distress - Eye Exam Eye Exam: EOMI, Normal appearance - Respiratory Exam Respiratory Exam: Clear to Ausculation Bilateral, NORMAL BREATHING PATTERN - Cardiovascular Exam Cardiovascular Exam: REGULAR RHYTHM, +S1, +S2 - GI/Abdominal Exam GI & Abdominal Exam: Soft, Hypoactive Bowel Sounds. absent: Tenderness - Extremities Exam Extremities Exam: Normal Inspection. absent: Pedal Edema - Neurological Exam Neurological Exam: Alert, Awake, Oriented x3 - Psychiatric Exam Psychiatric exam: Normal Affect, Normal Mood - Skin Skin Exam: Normal Color, Warm Assessment and Plan - Assessment and Plan (Free Text) Assessment: #Systolic CHF #HTN #Hyperlipidemia #Chronic Abdominal pain, diarrhea Plan: -CT imaging reviewed, showing contracted gallbladder with norbert-cholecystic flui d. Mild colitis present. -US reviewed - echogenic liver, Thickened GB wall 1cm, No sludge or calculi, CBD 4mm. -Liquid diet and advance as tolerated. -PENDING stool studies (culture, c-difficile) -Follow up cardiology recommendations -Will continue to monitor patient clinical course -Recommend colonoscopy evaluation as outpatient <Conner Hearn - Last Filed: 04/29/18 15:18> Objective - Vital Signs/Intake and Output Vital Signs (last 24 hours): Temp Pulse Resp BP Pulse Ox 97.2 F L 105 H 18 112/79 98 04/29/18 07:00 04/29/18 07:00 04/29/18 07:00 04/29/18 12:25 04/29/18 07:00 Intake and Output: 04/29/18 04/29/18 06:59 18:59 Intake Total 110 Balance 110 - Medications Medications: Current Medications Aspirin (Aspirin Chewable) 81 mg PO DAILY [facility] Last Admin: 04/29/18 12:24 Dose: 81 mg Carvedilol (Coreg) 6.25 mg PO BID [facility] Last Admin: 04/29/18 12:25 Dose: 6.25 mg Diphenhydramine HCl (Benadryl) 50 mg PO Q8 PRN PRN Reason: Itching / Pruritus Enoxaparin Sodium (Lovenox) 40 mg SC DAILY [facility] Last Admin: 04/29/18 12:28 Dose: 40 mg Furosemide (Lasix) 20 mg IVP BID [facility] Last Admin: 04/29/18 12:25 Dose: 20 mg Ciprofloxacin (Cipro 400mg/200ml Dsw) 400 mg in 200 mls @ 133 mls/hr IVPB Q12H [facility]; Protocol Last Admin: 04/29/18 12:23 Dose: 133 mls/hr Metronidazole (Flagyl) 500 mg in 100 mls @ 100 mls/hr IVPB Q8H [facility]; Protocol Last Admin: 04/29/18 12:24 Dose: 100 mls/hr Lisinopril (Zestril) 5 mg PO DAILY [facility] Last Admin: 04/29/18 12:29 Dose: 5 mg Spironolactone (Aldactone) 25 mg PO DAILY [facility] Last Admin: 04/29/18 12:24 Dose: 25 mg - Labs Labs: 04/29/18 07:32 04/29/18 07:32 PT 22.4 SECONDS (9.7-12.2) H 04/23/18 22:31 INR 2.0 04/23/18 22:31 APTT 29 SECONDS (21-34) 04/23/18 22:31 Attending/Attestation - Attestation I have personally seen and examined this patient.: Yes I have fully participated in the care of the patient.: Yes I have reviewed all pertinent clinical information, including history, physical exam and plan: Yes Notes (Text): 04/29/18 15:15 I have seen and examined patient with GI fellow. No acute events overnight, he reports ongoing nausea but denies vomiting, fever/chills, abdominal pain. He had two loose bowel movements today. Tolerating PO liquids. CHF HTN Hyperlipidemia Chronic diarrhea - colitis - Advance diet as tolerated - Awaiting results of stool studies - Continue with antibiotic therapy for additional 5 days - Dietary trial of dairy avoidance - No further planned GI intervention at this time, suggest additional outpatient follow up. Will sign off case, please reconsult as necessary, thank you.
--- NOTE | 2018-04-29 12:06 | CARD ---
APPROVED REPORT Date of service: 04/26/2018 EKG Measurement Heart [id number] <Conclusion> Sinus tachycardia Biatrial enlargement T wave abnormality, consider lateral ischemia Abnormal ECG
[2018-04-29] MEDS: Ciprofloxacin 400mg/200ml D5W 400 MG/200 ML BAG IVPB SCH ×2 (12:23→20:51)
[2018-04-29] MEDS: Enoxaparin 40 mg Syringe SC SCH (12:28)
[2018-04-29 16:25] VITALS: RESP 20
--- NOTE | 2018-04-29 21:27 | CP.PCM.PN ---
<Carina Brennan - Last Filed: 04/29/18 21:36> Subjective - Date & Time of Evaluation Date of Evaluation: 04/29/18 Time of Evaluation: 09:00 - Subjective Subjective: Cardiology Progress Note for Dr. Mccarty: Patient was seen and examined at bedside in the AM. Patient states he continues to have shortness of breath. Patient states the shortness of breath is worse in the evening as he a has trouble going to sleep. He states this continues to occur as he cannot afford all of his medications. Patient denies chest pain or palpitations at this time. Objective - Vital Signs/Intake and Output Vital Signs (last 24 hours): Temp Pulse Resp BP Pulse Ox 97.3 F L 96 H 20 104/72 97 04/29/18 15:23 04/29/18 15:23 04/29/18 15:23 04/29/18 21:00 04/29/18 15:23 - Medications Medications: Current Medications Aspirin (Aspirin Chewable) 81 mg PO DAILY [facility] Last Admin: 04/29/18 12:24 Dose: 81 mg Carvedilol (Coreg) 6.25 mg PO BID [facility] Last Admin: 04/29/18 17:59 Dose: 6.25 mg Diphenhydramine HCl (Benadryl) 50 mg PO Q8 PRN PRN Reason: Itching / Pruritus Enoxaparin Sodium (Lovenox) 40 mg SC DAILY [facility] Last Admin: 04/29/18 12:28 Dose: 40 mg Furosemide (Lasix) 20 mg IVP BID [facility] Last Admin: 04/29/18 21:00 Dose: 20 mg Ciprofloxacin (Cipro 400mg/200ml Dsw) 400 mg in 200 mls @ 133 mls/hr IVPB Q12H [facility]; Protocol Last Admin: 04/29/18 20:51 Dose: 133 mls/hr Metronidazole (Flagyl) 500 mg in 100 mls @ 100 mls/hr IVPB Q8H [facility]; Protocol Last Admin: 04/29/18 17:58 Dose: 100 mls/hr Lisinopril (Zestril) 5 mg PO DAILY [facility] Last Admin: 04/29/18 12:29 Dose: 5 mg Ondansetron HCl (Zofran Inj) 4 mg IVP Q8H PRN PRN Reason: Nausea/Vomiting Spironolactone (Aldactone) 25 mg PO DAILY [facility] Last Admin: 04/29/18 12:24 Dose: 25 mg - Labs Labs: 04/29/18 07:32 04/29/18 07:32 PT 22.4 SECONDS (9.7-12.2) H 04/23/18 22:31 INR 2.0 04/23/18 22:31 APTT 29 SECONDS (21-34) 04/23/18 22:31 - Constitutional Appears: No Acute Distress - Head Exam Head Exam: ATRAUMATIC, NORMAL INSPECTION - Eye Exam Eye Exam: EOMI, Normal appearance - ENT Exam ENT Exam: Mucous Membranes Moist - Respiratory Exam Respiratory Exam: Clear to Ausculation Bilateral, NORMAL BREATHING PATTERN - Cardiovascular Exam Cardiovascular Exam: REGULAR RHYTHM, +S1, +S2 - Extremities Exam Extremities Exam: Normal Inspection. absent: Pedal Edema - Neurological Exam Neurological Exam: Alert, Awake, Oriented x3 - Psychiatric Exam Psychiatric exam: Depressed - Skin Skin Exam: Normal Color Assessment and Plan - Assessment and Plan (Free Text) Assessment: 37 year old male with past medical history of CHF, HTN, HLD, cholecystitis, medication noncompliance presented to the ED on 04/23/18 for worsening SOB with associated dry cough for the past 2 weeks. Chronic Systolic CHF - proBNP 4050 - ECHO (02/08/18): EF 13.5% - Medications * Aspirin 81mg daily * Coreg 6.25mg bid * Lasix 20mg IV BID * Lisinopril 5mg po daily * Aldactone 25mg po daily Non-compliance due to inability to buy medications due to finances. Social work consult recommended Case discussed with Dr. Lul Brennan PGY-2 <Alfie Mccarty - Last Filed: 04/29/18 22:06> Objective - Vital Signs/Intake and Output Vital Signs (last 24 hours): Temp Pulse Resp BP Pulse Ox 97.3 F L 96 H 20 104/72 97 04/29/18 15:23 04/29/18 15:23 04/29/18 15:23 04/29/18 21:00 04/29/18 15:23 - Medications Medications: Current Medications Aspirin (Aspirin Chewable) 81 mg PO DAILY [facility] Last Admin: 04/29/18 12:24 Dose: 81 mg Carvedilol (Coreg) 6.25 mg PO BID [facility] Last Admin: 04/29/18 17:59 Dose: 6.25 mg Diphenhydramine HCl (Benadryl) 50 mg PO Q8 PRN PRN Reason: Itching / Pruritus Enoxaparin Sodium (Lovenox) 40 mg SC DAILY [facility] Last Admin: 04/29/18 12:28 Dose: 40 mg Furosemide (Lasix) 20 mg IVP BID [facility] Last Admin: 04/29/18 21:00 Dose: 20 mg Ciprofloxacin (Cipro 400mg/200ml Dsw) 400 mg in 200 mls @ 133 mls/hr IVPB Q12H [facility]; Protocol Last Admin: 04/29/18 20:51 Dose: 133 mls/hr Metronidazole (Flagyl) 500 mg in 100 mls @ 100 mls/hr IVPB Q8H [facility]; Protocol Last Admin: 04/29/18 17:58 Dose: 100 mls/hr Lisinopril (Zestril) 5 mg PO DAILY [facility] Last Admin: 04/29/18 12:29 Dose: 5 mg Ondansetron HCl (Zofran Inj) 4 mg IVP Q8H PRN PRN Reason: Nausea/Vomiting Spironolactone (Aldactone) 25 mg PO DAILY [facility] Last Admin: 04/29/18 12:24 Dose: 25 mg - Labs Labs: 04/29/18 07:32 04/29/18 07:32 PT 22.4 SECONDS (9.7-12.2) H 04/23/18 22:31 INR 2.0 04/23/18 22:31 APTT 29 SECONDS (21-34) 04/23/18 22:31
[2018-04-30] MEDS: metroNIDAZOLE IV 500 mg/100 ml 500 MG/100 ML BAG IVPB SCH ×2 (02:00→11:21)
[2018-04-30 06:42] LABS: BASO % 0.5 % (0.0-2.0); EOS % 0.4 % (0.0-4.0); HEMOGLOBIN 13.2 g/dL (12.0-18.0); LYMPH # 2.1 K/uL (1.0-4.3); LYMPH % 23.5 % (20.0-40.0); MEAN CELL VOLUME 85.9 fL (80.0-94.0); MEAN CORPUSCULAR HEMOGLOBIN 27.7 pg (27.0-31.0); MEAN CORPUSCULAR HGB CONC 32.3 g/dL (33.0-37.0); MEAN PLATELET VOLUME 8.5 fL (7.2-11.7); MONO # 0.7 K/uL (0.0-0.8); NEUT % 67.6 % (50.0-75.0); NRBC % 0.1 % (0.0-2.0); RBC 4.75 Mil/uL (4.40-5.90); RED CELL DISTRIBUTION WIDTH 17.3 % (11.5-14.5); WHITE BLOOD COUNT 8.9 K/uL (4.8-10.8)
[2018-04-30 06:56] LABS: ALB/GLOB RATIO 1.4 (1.0-2.1); ALBUMIN 3.7 g/dL (3.5-5.0); ALT/SGPT 44 U/L (21-72); AST/SGOT 36 U/L (17-59); BLOOD UREA NITROGEN 18 mg/dL (9-20); CALCIUM 8.8 mg/dl (8.6-10.4); GFR NON-AFRICAN AMERICAN > 60
[2018-04-30 08:05] VITALS: TEMP 97.3; O2SAT 96
--- NOTE | 2018-04-30 08:12 | CP.PCM.PN ---
Subjective - Date & Time of Evaluation Date of Evaluation: 04/30/18 Time of Evaluation: 08:11 - Subjective Subjective: PGY1 Medicine Progress Note for Dr. Sharma Patient evaluated and examined at bedside. No acute overnight events overnight. Patient denies chest pain, shortness of breath, abdominal pain, fever, chills, nausea/vomiting, and/or headache. Objective - Vital Signs/Intake and Output Vital Signs (last 24 hours): Temp Pulse Resp BP Pulse Ox 97.3 F L 102 H 20 104/74 96 04/30/18 07:00 04/30/18 07:00 04/30/18 07:00 04/30/18 07:00 04/30/18 07:00 Intake and Output: 04/30/18 04/30/18 06:59 18:59 Intake Total 440 Output Total 2075 Balance -1635 - Medications Medications: Current Medications Aspirin (Aspirin Chewable) 81 mg PO DAILY [facility] Last Admin: 04/29/18 12:24 Dose: 81 mg Carvedilol (Coreg) 6.25 mg PO BID [facility] Last Admin: 04/29/18 17:59 Dose: 6.25 mg Diphenhydramine HCl (Benadryl) 50 mg PO Q8 PRN PRN Reason: Itching / Pruritus Enoxaparin Sodium (Lovenox) 40 mg SC DAILY [facility] Last Admin: 04/29/18 12:28 Dose: 40 mg Furosemide (Lasix) 20 mg IVP BID [facility] Last Admin: 04/29/18 21:00 Dose: 20 mg Ciprofloxacin (Cipro 400mg/200ml Dsw) 400 mg in 200 mls @ 133 mls/hr IVPB Q12H [facility]; Protocol Last Admin: 04/29/18 20:51 Dose: 133 mls/hr Metronidazole (Flagyl) 500 mg in 100 mls @ 100 mls/hr IVPB Q8H [facility]; Protocol Last Admin: 04/30/18 02:00 Dose: Not Given Lisinopril (Zestril) 5 mg PO DAILY [facility] Last Admin: 04/29/18 12:29 Dose: 5 mg Ondansetron HCl (Zofran Inj) 4 mg IVP Q8H PRN PRN Reason: Nausea/Vomiting Spironolactone (Aldactone) 25 mg PO DAILY [facility] Last Admin: 01/28/19 12:24 Dose: 25 mg - Labs Labs: 04/30/18 06:32 04/30/18 06:32 PT 22.4 SECONDS (9.7-12.2) H 04/23/18 22:31 INR 2.0 04/23/18 22:31 APTT 29 SECONDS (21-34) 04/23/18 22:31 - Additional Findings Additional findings: - Constitutional Appears: Non-toxic - Head Exam Head Exam: ATRAUMATIC, NORMAL INSPECTION, NORMOCEPHALIC - Eye Exam Eye Exam: EOMI, Normal appearance, PERRL Pupil Exam: NORMAL ACCOMODATION - ENT Exam ENT Exam: Mucous Membranes Moist, Normal Exam - Neck Exam Neck exam: Positive for: Full Rom, Normal Inspection. Negative for: Tenderness - Respiratory Exam Respiratory Exam: Rhonchi. absent: Accessory Muscle Use, Rales, Wheezes, Stridor - Cardiovascular Exam Cardiovascular Exam: Tachycardia, +S1, +S2, Systolic Murmur - GI/Abdominal Exam GI & Abdominal Exam: Distended, Normal Bowel Sounds, Soft. absent: Firm, Guarding, Tenderness - Extremities Exam Extremities exam: Positive for: normal capillary refill, pedal edema, pedal pulses present. Negative for: calf tenderness - Back Exam Back exam: NORMAL INSPECTION - Neurological Exam Neurological exam: Alert, CN II-XII Intact, Oriented x3 - Skin Skin Exam: Dry, Intact, Normal Color, Warm Assessment and Plan - Assessment and Plan (Free Text) Assessment: 37 y/o male with PMHx of severe CHF (EF 15% Jan 2018) and HTN hospitalized for CHF exacerbation since 04/24. s/p SCALE TESTER 04/25 s/p syncopal episode and with hypotension - currently managing diuresis for CHF vs. BP. Has significant social issues such as a hx of noncompliance and lack of insurance that will need to be addressed before discharge. 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 - Echo(02/17) EF~13.5%, severe LV systolic dysfunction, dilated LV, mild MR - Diuresis with lasix 40mg IV daily -> changed to lasix 20 mg IV BID per Dr. Mccarty recommendation, holding parameter SBP < 100 - Patient on core measures of severe CHF - ACEI and spironolactone. - Continue with lisinopril 5mg qd - Spironolactone 25mg po qd - ASA 81mg, coreg 6.25 mg BID - Elevate head of bed 45 degrees, strict ins/outs, HHD, Na < 2g/day - O2 via NC @2 L PRN. Goal > 92% O2 sat Cholecystitis / Colitis (SCALE TESTER 04/25 ) - CT imaging reviewed, showing contracted gallbladder with norbert-cholecystic fluid. Mild colitis present. - US reviewed - echogenic liver, Thickened GB wall 1cm, No sludge or calculi, CBD 4mm - Liquid diet and advance as tolerated. - Continue patient on the IV abx - Currently on Cipro/Flagyl - No leukocytosis - Patient afebrile - C-diff negative - Pending Stool culture - Per GI recommendations; follow-up as out-patient for colonoscopy - Blood culture negative X72 hours - Patient's SCALE TESTER on 04/25 had a spike of WBC at 15.9 but afebrile. Patient hyp otensive SBP 80s (see SCALE TESTER multdisp note 04/25 happened about 4pm). History of Noncompliance/Social Issues - Referral to [facility] unsuccessful - Spoke to Dr. Mojica 04/26 at 7:59am regarding patient, who confirmed non-acceptance to the program due to the red flags of 1) noncompliance 2) homelessness 3) lack of insurance - Should circumstances change, Dr. Mojica states that patient can be reconsidered. Dr. Mojica's number: [phone]. Program number: [phone] (Tita Almodovar). [email or web address] - SW being consulted - will need to speak to pharmacy about medication coverage and possibly get him to be a patient at [facility] Tachycardia - HR: 105 today - EKG on admission: sinus tach @128. Patient denies chest pain and palpitations. - Borderline (100-105) on tele, consistent with the EKG - Cardio consult, Dr. Mccarty, recs appreciated HTN - 04/28: Previously was hypotensive, the systolic is improved now. - SCALE TESTER called for syncopal episode and hypotension SBP 80s 04/25 (see multidisciplinary SCALE TESTER notes). - Continue Coreg 6.25 BID - Continue lisinopril 5 mg qd Ppx -DVT: lovenox 40 sq daily -GI ppx: not indicated at this time Patient seen and case discussed in detail with Dr. Edith Stroud PGY1
[2018-04-30] MEDS: Ciprofloxacin 400mg/200ml D5W 400 MG/200 ML BAG IVPB SCH (09:40)
[2018-04-30] MEDS: Enoxaparin 40 mg Syringe SC SCH (11:14)
[2018-04-30 11:25] VITALS: BP 108/80
[2018-04-30 11:45] VITALS: PULSE 94
--- NOTE | 2018-04-30 12:30 | CP.PCM.PN ---
Subjective - Date & Time of Evaluation Date of Evaluation: 04/30/18 Time of Evaluation: 08:00 - Subjective Subjective: Cardiology Progress Note for Dr. Mccarty: Patient was seen and examined at bedside in the AM. Patient states he still did not sleep the best overnight. He states his breathing has improved since he was admitted to the hospital. Patient states he does live with his aunt but cannot afford to purchase his medications. Patient denies chest pain or palpitations at this time. Objective - Vital Signs/Intake and Output Vital Signs (last 24 hours): Temp Pulse Resp BP Pulse Ox 97.3 F L 94 H 20 108/80 96 04/30/18 07:00 04/30/18 07:00 04/30/18 07:00 04/30/18 11:24 04/30/18 07:00 Intake and Output: 04/30/18 04/30/18 06:59 18:59 Intake Total 440 Output Total 2075 Balance -1635 - Medications Medications: Current Medications Aspirin (Aspirin Chewable) 81 mg PO DAILY [facility] Last Admin: 04/30/18 11:14 Dose: 81 mg Carvedilol (Coreg) 6.25 mg PO BID [facility] Last Admin: 04/30/18 11:14 Dose: 6.25 mg Diphenhydramine HCl (Benadryl) 50 mg PO Q8 PRN PRN Reason: Itching / Pruritus Enoxaparin Sodium (Lovenox) 40 mg SC DAILY [facility] Last Admin: 04/30/18 11:14 Dose: 40 mg Furosemide (Lasix) 20 mg IVP BID [facility] Last Admin: 04/30/18 11:24 Dose: 20 mg Ciprofloxacin (Cipro 400mg/200ml Dsw) 400 mg in 200 mls @ 133 mls/hr IVPB Q12H [facility]; Protocol Last Admin: 04/30/18 09:40 Dose: Not Given Metronidazole (Flagyl) 500 mg in 100 mls @ 100 mls/hr IVPB Q8H [facility]; Protocol Last Admin: 04/30/18 11:21 Dose: Not Given Lisinopril (Zestril) 5 mg PO DAILY [facility] Last Admin: 04/30/18 11:14 Dose: 5 mg Ondansetron HCl (Zofran Inj) 4 mg IVP Q8H PRN PRN Reason: Nausea/Vomiting Spironolactone (Aldactone) 25 mg PO DAILY [facility] Last Admin: 04/30/18 11:14 Dose: 25 mg - Labs Labs: 04/30/18 06:32 04/30/18 06:32 PT 22.4 SECONDS (9.7-12.2) H 04/23/18 22:31 INR 2.0 04/23/18 22:31 APTT 29 SECONDS (21-34) 04/23/18 22:31 - Constitutional Appears: No Acute Distress, Chronically Ill - Head Exam Head Exam: ATRAUMATIC, NORMAL INSPECTION - Eye Exam Eye Exam: EOMI, Normal appearance - ENT Exam ENT Exam: Mucous Membranes Moist - Respiratory Exam Respiratory Exam: Clear to Ausculation Bilateral, NORMAL BREATHING PATTERN - Cardiovascular Exam Cardiovascular Exam: REGULAR RHYTHM, +S1, +S2 - GI/Abdominal Exam GI & Abdominal Exam: Soft, Normal Bowel Sounds. absent: Tenderness - Extremities Exam Extremities Exam: Normal Inspection - Neurological Exam Neurological Exam: Alert, Awake, Oriented x3 - Psychiatric Exam Psychiatric exam: Depressed - Skin Skin Exam: Normal Color Assessment and Plan - Assessment and Plan (Free Text) Assessment: 37 year old male with past medical history of CHF, HTN, HLD, cholecystitis, medication noncompliance presented to the ED on 04/23/18 for worsening SOB with associated dry cough for the past 2 weeks. Chronic Systolic CHF - proBNP 4050 - ECHO (02/08/18): EF 13.5% - Medications * Aspirin 81mg daily * Coreg 6.25mg bid * Lasix 20mg IV BID * Lisinopril 5mg po daily * Aldactone 25mg po daily Non-compliance due to inability to buy medications due to finances. Social work consult recommended No further cardiac work up recommended at this time. Case discussed with Dr. Lul Brennan PGY-2
--- NOTE | 2018-04-30 13:31 | CP.PCM.DIS ---
Provider - Provider Date of Admission: 04/25/18 17:03 Attending physician: Tal Townsend DO Primary care physician: [facility] Physician Consults: 04/24/18 12:07 Cardiology Consult Routine Comment: Consulting Provider: Monty Espinal Consulting Physician: Monty Espinal Reason for Consult: CHF exacerbation 04/25/18 16:24 Cardiology Consult Routine Comment: Consulting Provider: Alfie Mccarty Consulting Physician: Alfie Mccarty Reason for Consult: chf Time Spent in preparation of Discharge (in minutes): 45 Diagnosis - Discharge Diagnosis (1) Cholecystitis Status: Acute Priority: Medium (2) Acute on chronic HFrEF (heart failure with reduced ejection fraction) Status: Chronic Priority: Medium (3) Hypertension Status: Chronic Priority: Medium Hospital Course - Lab Results Lab Results: Micro Results 04/25/18 17:26 Blood Blood Culture - Preliminary NO GROWTH AFTER 4 DAYS 04/25/18 16:50 Blood Blood Culture - Preliminary NO GROWTH AFTER 4 DAYS 04/23/18 22:38 Blood Blood Culture - Final NO GROWTH AFTER 5 DAYS 04/23/18 22:38 Blood Gram Stain - Final TEST NOT PERFORMED 04/23/18 22:34 Blood Blood Culture - Final NO GROWTH AFTER 5 DAYS 04/23/18 22:34 Blood Gram Stain - Final TEST NOT PERFORMED Most Recent Lab Values WBC 8.9 K/uL (4.8-10.8) 04/30/18 06:32 RBC 4.75 Mil/uL (4.40-5.90) 04/30/18 06:32 Hgb 13.2 g/dL (12.0-18.0) 04/30/18 06:32 Hct 40.8 % (35.0-51.0) 04/30/18 06:32 MCV 85.9 fL (80.0-94.0) 04/30/18 06:32 MCH 27.7 pg (27.0-31.0) 04/30/18 06:32 MCHC 32.3 g/dL (33.0-37.0) L 04/30/18 06:32 RDW 17.3 % (11.5-14.5) H 04/30/18 06:32 Plt Count 424 K/uL (130-400) H 04/30/18 06:32 MPV 8.5 fL (7.2-11.7) 04/30/18 06:32 Neut % (Auto) 67.6 % (50.0-75.0) 04/30/18 06:32 Lymph % (Auto) 23.5 % (20.0-40.0) 04/30/18 06:32 Henry % (Auto) 8.0 % (0.0-10.0) 04/30/18 06:32 Eos % (Auto) 0.4 % (0.0-4.0) 04/30/18 06:32 Baso % (Auto) 0.5 % (0.0-2.0) 04/30/18 06:32 Neut # (Auto) 6.0 K/uL (1.8-7.0) 04/30/18 06:32 Lymph # (Auto) 2.1 K/uL (1.0-4.3) 04/30/18 06:32 Henry # (Auto) 0.7 K/uL (0.0-0.8) 04/30/18 06:32 Eos # (Auto) 0.0 K/uL (0.0-0.7) 04/30/18 06:32 Baso # (Auto) 0.0 K/uL (0.0-0.2) 04/30/18 06:32 Neutrophils % (Manual) 76 % (50-75) H 04/25/18 07:00 Band Neutrophils % 2 % (0-2) 04/25/18 07:00 Lymphocytes % (Manual) 9 % (20-40) L 04/25/18 07:00 Reactive Lymphs % 2 % (0-0) H 04/25/18 07:00 Monocytes % (Manual) 10 % (0-10) 04/25/18 07:00 Basophils % (Manual) 1 % (0-2) 04/25/18 07:00 Platelet Estimate Normal (NORMAL) 04/25/18 07:00 Polychromasia Slight 04/25/18 07:00 Hypochromasia (manual) Slight 04/25/18 07:00 Poikilocytosis (manual Slight 04/25/18 07:00 Anisocytosis (manual) Slight 04/25/18 07:00 [place] Cells Slight 04/25/18 07:00 PT 22.4 SECONDS (9.7-12.2) H 04/23/18 22:31 INR 2.0 04/23/18 22:31 APTT 29 SECONDS (21-34) 04/23/18 22:31 Puncture Site Rr 04/23/18 22:00 pCO2 31 mm/Hg (35-45) L 04/23/18 22:00 pO2 76 mm/Hg (30-55) H 04/26/18 02:05 HCO3 22.3 mmol/L (21-28) 04/23/18 22:00 ABG pH 7.42 (7.35-7.45) 04/23/18 22:00 ABG Total CO2 21.1 mmol/L (22-28) L 04/23/18 22:00 ABG O2 Saturation 98.8 % (95-98) H 04/23/18 22:00 ABG Base Excess -3.4 mmol/L (-2.0-3.0) L 04/23/18 22:00 Reyes Test Yes 04/23/18 22:00 ABG Potassium 3.8 mmol/L (3.6-5.2) 04/23/18 22:00 VBG pH 7.43 (7.32-7.43) 04/26/18 02:05 VBG pCO2 35 mmHg (40-60) L 04/26/18 02:05 VBG HCO3 24.4 mmol/L 04/26/18 02:05 VBG Total CO2 24.3 mmol/L (22-28) 04/26/18 02:05 VBG O2 Sat (Calc) 97.2 % (40-65) H 04/26/18 02:05 VBG Base Excess -0.6 mmol/L (0.0-2.0) L 04/26/18 02:05 VBG Potassium 4.1 mmol/L (3.6-5.2) 04/26/18 02:05 Sodium 138.0 mmol/l (132-148) 04/26/18 02:05 Chloride 107.0 mmol/L (98-107) 04/26/18 02:05 Glucose 91 mg/dl (75-110) 04/26/18 02:05 Lactate 1.7 mmol/L (0.7-2.1) 04/26/18 02:05 Sodium 137 mmol/L (132-148) 04/30/18 06:32 Potassium 4.2 mmol/L (3.6-5.2) 04/30/18 06:32 Chloride 107 mmol/L (98-107) 04/30/18 06:32 Carbon Dioxide 23 mmol/L (22-30) 04/30/18 06:32 Anion Gap 11 (10-20) 04/30/18 06:32 BUN 18 mg/dL (9-20) 04/30/18 06:32 Creatinine 1.3 mg/dL (0.8-1.5) 04/30/18 06:32 Est GFR ( Amer) > 60 04/30/18 06:32 Est GFR (Non-Af Amer) > 60 04/30/18 06:32 POC Glucose (mg/dL) 100 mg/dL (65-110) 04/25/18 21:00 Random Glucose 86 mg/dL (75-110) 04/30/18 06:32 Lactic Acid 1.8 mmol/L (0.7-2.1) 04/25/18 16:50 Calcium 8.8 mg/dl (8.6-10.4) 04/30/18 06:32 Phosphorus 3.2 mg/dL (2.5-4.5) 04/30/18 06:32 Magnesium 2.0 mg/dL (1.6-2.3) 04/30/18 06:32 Total Bilirubin 0.9 mg/dL (0.2-1.3) 04/30/18 06:32 AST 36 U/L (17-59) 04/30/18 06:32 ALT 44 U/L (21-72) 04/30/18 06:32 Alkaline Phosphatase 54 U/L (38-126) 04/30/18 06:32 Total Creatine Kinase 82 U/L (55-170) 04/25/18 16:07 CK-MB (Mass) 0.54 ng/mL (0.0-3.38) 04/25/18 16:07 Troponin I 0.0150 ng/mL (0.00-0.120) 04/25/18 16:07 NT-Pro-B Natriuret Pep 4050 pg/mL (0-450) H 04/23/18 22:31 Total Protein 6.3 g/dL (6.3-8.3) 04/30/18 06:32 Albumin 3.7 g/dL (3.5-5.0) 04/30/18 06:32 Globulin 2.6 gm/dL (2.2-3.9) 04/30/18 06:32 Albumin/Globulin Ratio 1.4 (1.0-2.1) 04/30/18 06:32 Arterial Blood Potassium 3.8 mmol/L (3.6-5.2) 04/23/18 22:00 Venous Blood Potassium 4.1 mmol/L (3.6-5.2) 04/26/18 02:05 Urine Color Yellow (YELLOW) 04/25/18 20:08 Urine Clarity Clear (Clear) 04/25/18 20:08 Urine pH 5.0 (5.0-8.0) 04/25/18 20:08 Ur Specific [place] 1.014 (1.003-1.030) 04/25/18 20:08 Urine Protein Negative mg/dL (NEGATIVE) 04/25/18 20:08 Urine Glucose (UA) Normal mg/dL (Normal) 04/25/18 20:08 Urine Ketones Negative mg/dL (NEGATIVE) 04/25/18 20:08 Urine Blood Negative (NEGATIVE) 04/25/18 20:08 Urine Nitrate Negative (NEGATIVE) 04/25/18 20:08 Urine Bilirubin Negative (NEGATIVE) 04/25/18 20:08 Urine Urobilinogen Normal mg/dL (0.2-1.0) 04/25/18 20:08 Ur Leukocyte Esterase Neg Martinez/uL (Negative) 04/25/18 20:08 Urine WBC (Auto) < 1 /hpf (0-5) 04/25/18 20:08 Urine RBC (Auto) < 1 /hpf (0-3) 04/25/18 20:08 Ur Squamous Epith Cells < 1 /hpf (0-5) 04/25/18 20:08 Hyaline Casts 0-2 /lpf (0-2) 04/25/18 20:08 Urine Opiates Screen Negative (NEGATIVE) 04/24/18 01:00 Urine Methadone Screen Negative (NEGATIVE) 04/24/18 01:00 Ur Barbiturates Screen Negative (NEGATIVE) 04/24/18 01:00 Ur Phencyclidine Scrn Negative (NEGATIVE) 04/24/18 01:00 Ur Amphetamines Screen Negative (NEGATIVE) 04/24/18 01:00 U Benzodiazepines Scrn Negative (NEGATIVE) 04/24/18 01:00 U Oth Cocaine Metabols Negative (NEGATIVE) 04/24/18 01:00 U Cannabinoids Screen Positive (NEGATIVE) H 04/24/18 01:00 C. difficile Ag & Toxin Negative (NEGATIVE) 04/29/18 02:32 Influenza Typ A,B (EIA) Negative for flu a/b (NEGATIVE) 04/23/18 23:41 - Hospital Course Hospital Course: Discharge Summary and Hospital Course for Dr. Sharma History and Physical Exam (History of Present Illness from Day of Admission) Patient is a 37 year old male with past medical history of CHF, HTN, HLD, cholecystitis, medication noncompliance who presented to the ED for worsening SOB with associated dry cough for the past 2 weeks. Patient also endorsed worsening abdominal distention which labors his breathing. Patient reported that he has not been on any home medications for the last 2 months as he cannot afford them. Patient was given a life vest 4-5 months ago but stated he had to return it. Patient states he comes to the ED about once per month for the same symptoms, his last hospitilzation for CHF exacerbation was in January. Previous ECHO demonstrated LV global hypokinesis with EF of 15%. No fevers/chills, headaches, dizziness, acute changes in vision, chest pain, palpitations, abdominal pain, n/v/d/c, dysuria, or changes in stool. Please see chart for complete summary of details. Patient was subsequently admitted to telemetry for acute on chronic CHF exacerbation. Patient was treated with lasix, and his home-medications were continued. During the Patient's stay, referral to [facility], was provided to the Patient. Demographic information was sent to see if they would consider patient as he is uninsured, to [email or web address] once consent obtained from patientt. Discussion had with patient regarding need for treatment at heart failure program, he is in agreement. Nonetheless, this referral was unsuccessful due to lack of insurance. Cardiology was consulted and recommended that the Patient follow-up as an outpatient, and urged Patient to continue the current medications as listed below. Patient stated he needed assistance with obtaining medications due to his financial constraints. Assistance was provided to the Patient by completing the Patient cost-central form. Furthermore, the Patient was scheduled for an appointment at the [facility], and details were provided to the Patient in writing and verbally. Patient also complained of abdominal pain and diarrhea. CT imaging was obtained and reviewed, showing contracted gallbladder with norbert-cholecystic fluid. Mild colitis present. Abdominal ultrasound was obtained and revealed echogenic liver, thickened GB wall 1cm, no sludge or calculi, CBD 4mm. C-diff toxins were obtained and were negative. GI was consulted (Dr. Hearn) and recommended follow- up as outpatient for a colonoscopy. The following instructions were provided to the Patient both verbally and in writing to the level of the Patient's comprehension. Patient both understands and agrees to all instructions provided. Please follow-up at [facility] within 3-5 days of discharge Please follow-up with Dr. Espinal (Cardiology) You were given prescriptions for the following medications ASA 81mg PO daily Carvedilol 6.25mg Po BID Lasix 40mg PO BID #60 Zestril 20mg PO Daily #30 Rosuvastatin 5mg PO QPM #30 Spironolactone 25mg PO Daily #30 Please fill and take these medications as soon as possible and follow-up with your PCP at the clinic listed above for refill medications. Please follow-up with GI as an out-patient for a colonoscopy, per GI recommendations. Please return to the ED immediately, should your symptoms return Patient was seen and evaluated with Dr. Edith Stroud Discharge Exam - Additional Findings Additional findings: - Constitutional Appears: No Acute Distress, Chronically Ill - Head Exam Head Exam: ATRAUMATIC, NORMAL INSPECTION - Eye Exam Eye Exam: EOMI, Normal appearance - ENT Exam ENT Exam: Mucous Membranes Moist - Respiratory Exam Respiratory Exam: Clear to Ausculation Bilateral, NORMAL BREATHING PATTERN - Cardiovascular Exam Cardiovascular Exam: REGULAR RHYTHM, +S1, +S2 - GI/Abdominal Exam GI & Abdominal Exam: Soft, Normal Bowel Sounds. absent: Tenderness - Extremities Exam Extremities Exam: Normal Inspection. Edema improved significantly from prior day. - Neurological Exam Neurological Exam: Alert, Awake, Oriented x3 - Psychiatric Exam Psychiatric exam: Depressed - Skin Skin Exam: Normal Color Discharge Plan - Discharge Medications Prescriptions: Aspirin [Aspirin Chewable] 81 mg PO DAILY #30 chew Carvedilol [Coreg] 6.25 mg PO BID #60 tab Furosemide [Lasix] 40 mg PO BID #60 tab Lisinopril [Zestril] 20 mg PO DAILY #30 tab Rosuvastatin Calcium [Crestor] 5 mg PO QPM #30 tab Spironolactone [Aldactone] 50 mg PO DAILY #30 tab - Follow Up Plan Condition: FAIR Disposition: HOME/ ROUTINE Instructions: Heart Healthy Diet, Heart Failure, Adult (DC), Aspirin, Carvedilol, Furosemide, Lisinopril, Rosuvastatin, Spironolactone Additional Instructions: Please follow-up at [facility] within 3-5 days of discharge Please follow-up with Dr. Espinal (Cardiology) You were given prescriptions for the following medications ASA 81mg PO daily Carvedilol 6.25mg Po BID Lasix 40mg PO BID #60 Zestril 20mg PO Daily #30 Rosuvastatin 5mg PO QPM #30 Spironolactone 25mg PO Daily #30 Please fill and take these medications as soon as possible and follow-up with your PCP at the clinic listed above for refill medications. Please follow-up with GI as an out-patient for a colonoscopy, per GI recommendations. Please return to the ED immediately, should your symptoms return. Referrals: [facility] at [facility] [Outside] - 05/23/18 1:00 pm
== END 2018-04-30 16:29 | disposition home or self-care (01) | DRG 194 ==
LOC: C.ER 21:13 → C.9E 23:45 → C.6T 04-24 05:57 → OBSVTOIN 04-25 17:03 → C.6T 04-30 15:26
PROVIDERS: ADMIT Hospitalist; ATTEND Hospitalist
DX: I11.0 Hypertensive heart disease with heart failure (principal); I50.23 Acute on chronic systolic (congestive) heart failure; K81.9 Cholecystitis, unspecified; I95.9 Hypotension, unspecified; R55 Syncope and collapse; I42.9 Cardiomyopathy, unspecified; K52.9 Noninfective gastroenteritis and colitis, unspecified; R00.0 Tachycardia, unspecified; E78.5 Hyperlipidemia, unspecified; G89.29 Other chronic pain; Z87.891 Personal history of nicotine dependence; Z59.0 Homelessness; Z91.14 Patient's other noncompliance with medication regimen; Z91.19 Patient's noncompliance with other medical treatment and regimen; Z95.0 Presence of cardiac pacemaker; Z79.899 Other long term (current) drug therapy; Z79.82 Long term (current) use of aspirin; Z59.7 Insufficient social insurance and welfare support

== ENCOUNTER 2018-08-06 12:14 | Inpatient (IN) | payer MEDICAID ==
[2018-08-06 13:49] LABS: BASO % 0.6 % (0.0-2.0); LYMPH # 2.1 K/uL (1.0-4.3); LYMPH % 25.3 % (20.0-40.0); MEAN CORPUSCULAR HEMOGLOBIN 26.2 pg (27.0-31.0); MONO # 0.8 K/uL (0.0-0.8); NEUT # 5.5 K/uL (1.8-7.0); NEUT % 65.1 % (50.0-75.0); NRBC % 0.1 % (0.0-2.0); RBC 5.34 Mil/uL (4.40-5.90); RED CELL DISTRIBUTION WIDTH 20.1 % (11.5-14.5); WHITE BLOOD COUNT 8.5 K/uL (4.8-10.8)
[2018-08-06 13:51] LABS: MEAN CELL VOLUME 81.9 fL (80.0-94.0)
[2018-08-06 13:54] LABS: ALB/GLOB RATIO 1.3 (1.0-2.1); ALBUMIN 4.1 g/dL (3.5-5.0); ALT/SGPT 50 U/L (21-72); AST/SGOT 67 U/L (17-59); BLOOD UREA NITROGEN 19 mg/dL (9-20); CALCIUM 9.4 mg/dl (8.6-10.4); GFR NON-AFRICAN AMERICAN > 60
[2018-08-06 14:01] LABS: INR 2.6; PROTHROMBIN TIME 28.6 SECONDS (9.7-12.2)
[2018-08-06 14:03] LABS: B-TYPE NATRIURETIC PEPTIDE 6600 pg/mL (0-450)
[2018-08-06 14:39] LABS: BARBITURATES, UR NEGATIVE (NEGATIVE); BENZODIAZEPINES, UR NEGATIVE (NEGATIVE); OPIATES, UR NEGATIVE (NEGATIVE); PHENCYCLIDINE, UR NEGATIVE (NEGATIVE)
--- NOTE | 2018-08-06 14:42 | C.PDOC ---
History Of Present Illness 38 year old male presents to ED with complaint of SOB. Patient has a history of chronic CHF. 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 Patient claims that he no longer drinks alcohol. Patient has failed to make his cardiology follow ups. Patient has a [employer] life vest, but failed to follow up for that as well. Patient failed to notice greater swelling in his left than his right leg. He is unable to explain whether he is working or in school. Patient denies chest pain,nausea, and vomiting. Time Seen by Provider: 08/06/18 13:18 Chief Complaint (Nursing): Shortness Of Breath History Per: Patient History/Exam Limitations: no limitations Onset/Duration Of Symptoms: Unknown Current Symptoms Are (Timing): Still Present Associated Symptoms: Ankle/Leg Swelling Past Medical History Reviewed: Historical Data, Nursing Documentation, Vital Signs Vital Signs: Last Vital Signs Temp Pulse 126 H 08/06/18 13:10 Resp 24 08/06/18 13:10 BP 117/87 08/06/18 13:10 Pulse Ox 100 08/06/18 13:10 Primary Care Provider: Non [facility] Provider, - Medical History PMH: CHF, Gall Bladder Disease (choleystitis), HTN, Hyperlipidemia Denies: Chronic Kidney Disease Surgical History: Pacemaker - [facility] DETOXIFICATION SERVICES FOR SUBSTANCE ABUSE TREATMENT (08/19/17) Family History: States: Unknown Family Hx - Social History Hx Alcohol Use: Yes (states no longer drinks) Hx Substance Use: No - Immunization History Hx Tetanus Toxoid Vaccination: No Hx Influenza Vaccination: No Hx Pneumococcal Vaccination: No Review Of Systems Constitutional: Negative for: Weakness Cardiovascular: Negative for: Chest Pain, Palpitations, Light Headedness Respiratory: Positive for: Shortness of Breath. Negative for: Cough Gastrointestinal: Negative for: Nausea, Vomiting Musculoskeletal: Positive for: Other (left > right leg swelling) Neurological: Negative for: Dizziness Physical Exam - Physical Exam Appears: Non-toxic, No Acute Distress, Other (bizarre affect, no alcohol on breath ) Skin: Normal Color, Warm, Dry Head: Atraumatic, Normacephalic Neck: Normal ROM, Supple Chest: Symmetrical, No Deformity Cardiovascular: Rhythm Regular, No Murmur, No JVD Respiratory: No Accessory Muscle Use, No Rales, No Rhonchi, No Wheezing Gastrointestinal/Abdominal: Soft, No Tenderness Extremity: No Calf Tenderness, Capillary Refill (<2 seconds), Swelling (left lower extremity> right lower extremity) Extremity: Bilateral: Atraumatic, Normal Color And Temperature, Normal ROM Pulses: Left Dorsalis Pedis: Normal, Right Dorsalis Pedis: Normal Neurological/Psych: Oriented x3, Normal Motor, Normal Sensation Gait: Steady ED Course And Treatment - Laboratory Results Result Diagrams: 08/06/18 13:35 08/06/18 13:35 Lab Results: PT 28.6 SECONDS (9.7-12.2) H 08/06/18 13:35 INR 2.6 08/06/18 13:35 APTT 31.0 SECONDS (21-34) 08/06/18 13:35 D-Dimer, Quantitative 5431 ng/mlDDU (0-243) H 08/06/18 13:35 Troponin I 0.0210 ng/mL (0.00-0.120) 08/06/18 13:35 NT-Pro-B Natriuret Pep 6600 pg/mL (0-450) H 08/06/18 13:35 Total Bilirubin 3.7 mg/dL (0.2-1.3) H 08/06/18 13:35 AST 67 U/L (17-59) H D 08/06/18 13:35 ALT 50 U/L (21-72) 08/06/18 13:35 Alkaline Phosphatase 63 U/L (38-126) 08/06/18 13:35 Total Protein 7.3 g/dL (6.3-8.3) 08/06/18 13:35 Albumin 4.1 g/dL (3.5-5.0) 08/06/18 13:35 Globulin 3.2 gm/dL (2.2-3.9) 08/06/18 13:35 Albumin/Globulin Ratio 1.3 (1.0-2.1) 08/06/18 13:35 ECG: Interpreted By Me ECG Rhythm: Sinus Tachycardia ECG Interpretation: Abnormal Rate From EC O2 Sat by Pulse Oximetry: 100 Pulse Ox Interpretation: Normal - Radiology CXR: Interpreted by Me CXR Interpretation: Yes: Heart Size, Other (? mild CHF) - CT Scan/US L leg US Other Rad Studies (CT/US): Interpreted By Me, Read By Radiologist, Radiology Report Reviewed (+ L leg DVT- acute) Chest CTA Other Rad Studies (CT/US): Interpreted By Me, Read By Radiologist (+ PE), Radiology Report Reviewed Progress Note: Chest CTA, EKG, CXR, Venous duplex scan of the bilateral lower extremities ordered for patient. Labs ordered with cardiac enzymes and d-dimer. Patient given Lovenox, Pepcid IVP, and Zofran IVP. Reevaluation Time: 14:40 Reassessment Condition: Improved - Physician Consult Information Outcome Of Conversation: 1430: d/w Dr. Rivas, Medicine front desk attendant- ok to Tele obs. 1430: d/w Dr.Benz- Leija- has seen pt prior evals. 173: d/w Dr. Phipps- ICU, ok to ICU. 1730: Dr. Rivas and Dr. Mccarty aware Medical Decision Making Medical Decision Making: chronic CHF severe dilated cariomyopathy non-ischemic cardiomyopathy 19% EJF (from prior Cardio note) but no in-house Cardiac Echo noted ? etiology- ? cigarette smoking or alcohol abuse multiple prior Cardio Clinic visits Dr. Monty Espinal defers to Dr. Mccarty (has also prior evals) as inpt Consider inpt card echo Tox: ? liver disease/Alcohol use acute L leg DVT Lovenox 100 SQ Disposition Doctor Will See Patient In The: Hospital Counseled Patient/Family Regarding: Studies Performed, Diagnosis - Disposition Disposition: HOSPITALIZED Disposition Time: 16:01 Condition: GOOD - Clinical Impression Clinical Impression: Chronic congestive heart failure, Left leg DVT - Scribe Statement The provider has reviewed the documentation as recorded by the Scribe (Ayaka Desir) All medical record entries made by the Scribe were at my direction and personally dictated by me. I have reviewed the chart and agree that the record accurately reflects my personal performance of the history, physical exam, medical decision making, and the department course for this patient. I have also personally directed, reviewed, and agree with the discharge instructions and disposition.
[2018-08-06] MEDS ORDERED: Enoxaparin 40 mg Syringe SC STA (14:43)
[2018-08-06] MEDS ORDERED: Enoxaparin 100 mg Syringe ONE (14:57)
--- NOTE | 2018-08-06 15:25 | RAD ---
HISTORY: SOB COMPARISON: Chest x-ray performed 04/26/18 TECHNIQUE: Chest, one view. FINDINGS: Examination limited by hypoinflation and habitus. LUNGS: No focal consolidation. Please note that chest x-ray has limited sensitivity for the detection of pulmonary masses. PLEURA: No significant pleural effusion identified. No definite pneumothorax . CARDIOVASCULAR: Cardiomegaly. No significant atherosclerotic calcification present. OSSEOUS STRUCTURES: No acute osseous abnormality identified. VISUALIZED UPPER ABDOMEN: Unremarkable. OTHER FINDINGS: None. IMPRESSION: Cardiomegaly. Hypoinflation.
[2018-08-06] MEDS ORDERED: Enoxaparin 100 mg Syringe SC SCH (16:45)
[2018-08-06] MEDS ORDERED: Iodixanol 320 MG/ML 100 ML BOTTLE IV ONE (16:54)
--- NOTE | 2018-08-06 17:40 | CT ---
Date of service: 08/06/2018 CTA chest PE protocol Indication: acute L leg DVT, + tachy 120's, ? PE Technique: Contiguous axial images were obtained through the chest with intravenous contrast enhancement. Sagittal and coronal reconstructions were generated and reviewed. This CT exam was performed using 1 or more of the following dose reduction techniques: Automated exposure control, adjustment of the MAA and/or kV according to patient size, and/or use of iterative reconstruction technique. IV contrast: 100 cc Visipaque 320 IV Radiation dose (DLP): 589.49 MGy-cm. Comparison: Chest x-ray performed 08/06/18, CTA chest performed 02/08/18 Findings: Visualized portions of the inferior thyroid gland appear unremarkable. The mediastinal and hilar vascular structures appear within normal limits. Cardiomegaly with reflux of contrast identified into the hepatic veins may be seen in the setting of elevated right heart pressures. Sub cm mediastinal adenopathy, nonspecific. Filling defect arising within the distal right main pulmonary artery involving the distal pulmonary artery branches. No evidence of saddle embolus. No discrete pulmonary embolus identified on the left. Small cluster of cystic foci and associated atelectasis at the right lower lobe. Focal ground-glass infiltrate within the left lower lobe. No pleural effusion. No pneumothorax. Focal patchy ground-glass opacity within the left lower lobe adjacent to the heart border. Limited visualized portions of the upper abdomen; partially imaged left perinephric stranding. Adrenal hypertrophy and associated inflammatory changes partially imaged. Partially imaged hepatomegaly. Mild bilateral gynecomastia. No acute osseous abnormality is detected. Impression: Cardiomegaly with reflux of contrast identified into the hepatic veins may be seen in the setting of elevated right heart pressures. Sub cm mediastinal adenopathy, nonspecific. Filling defect arising within the distal right main pulmonary artery involving the distal pulmonary artery branches. No evidence of saddle embolus. No discrete pulmonary embolus identified on the left. Small cluster of cystic foci and associated atelectasis at the right lower lobe. Focal ground-glass infiltrate within the left lower lobe. Focal patchy ground-glass opacity within the left lower lobe adjacent to the heart border. Partially imaged left perinephric stranding. Adrenal hypertrophy and associated inflammatory changes partially imaged. Partially imaged hepatomegaly. Findings discussed with Dr. Massey on 08/06/18 at 5:28 p.m..
--- NOTE | 2018-08-06 17:52 | CP.PCM.CON ---
<PadillaErvin - Last Filed: 08/06/18 18:37> History of Present Illness - History of Present Illness History of Present Illness: PGY-1 Critical Care Consult Note for Dr. Phipps Patient is a 38 year old with past medical history of HFrEF (EF 13.59%, ECHO 01/2018), non-ischemic cardiomyopathy, HTN, HLD, medication noncompliance presenting to ED with bilateral leg swelling and tenderness (L>R), shortness of breath, and pleuritic chest pain that began about 1 month ago. Pat genevieve states he is more sedentary within the past month that normally, does not leave his house much due to severe shortness of breath with physical exertion. Patient has known history of severe systolic CHF, EF noted to be 13%, had life vest for some time but it was taken away per patient. 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 No fevers/chills, dizziness, LOC, abdominal pain, n/v/d/c. 12 pt ROS reviewed and otherwise negative. PMHx: chronic systolic HF, nonischemic cardiomyopathy, HTN, HLD, cholecystitis, medication noncompliance PSHx: denies Allergies: NKDA Home Medications: Reviewed Family Hx: Father and Grandfather - CHF, father due to complications at age 48, Mother--HTN Social Hx: Former smoker--smoked for approximately 20 years, 2 packs per day. Patient states he no longer drinks alcohol, used to drink once per week. Unemployed, lives with family, supported financially by his Aundawson Flores. Emergency Contact: Review of Systems - Review of Systems All systems: reviewed and no additional remarkable complaints except Review of Systems: as per HPI Past Patient History - Infectious Disease Hx of Infectious Diseases: None - Past Medical History & Family History Past Medical History?: Yes - Past Social History Smoking Status: Former Smoker - CARDIAC Hx Congestive Heart Failure: Yes Hx Hypertension: Yes Hx Pacemaker: Yes - PULMONARY Hx Respiratory Disorders: Yes Hx Pulmonary Edema: Yes - NEUROLOGICAL Hx Neurological Disorder: No - HEENT Hx HEENT Problems: No - RENAL Hx Chronic Kidney Disease: No - ENDOCRINE/METABOLIC Hx Endocrine Disorders: No - HEMATOLOGICAL/ONCOLOGICAL Hx Blood Disorders: No - INTEGUMENTARY Hx Dermatological Problems: No - MUSCULOSKELETAL/RHEUMATOLOGICAL Hx Musculoskeletal Disorders: No Hx Falls: No - GASTROINTESTINAL Hx Gall Bladder Disease: Yes (choleystitis) - GENITOURINARY/GYNECOLOGICAL Hx Genitourinary Disorders: No - PSYCHIATRIC Hx Substance Use: No - SURGICAL HISTORY Hx Surgeries: No - ANESTHESIA Hx Anesthesia: Yes Hx Anesthesia Reactions: No Hx Malignant Hyperthermia: No Meds Allergies/Adverse Reactions: Allergies Allergy/AdvReac Type Severity Reaction Status Date / Time No Known Allergies Allergy Verified 02/08/18 09:55 - Medications Medications: Current Medications Aspirin (Aspirin Chewable) 81 mg PO DAILY JACKELIN Carvedilol (Coreg) 6.25 mg PO BID JACKELIN Enoxaparin Sodium (Lovenox) 99.79 mg SC Q12H JACKELIN Furosemide (Lasix) 40 mg IVP DAILY JACKELIN Lisinopril (Zestril) 20 mg PO DAILY JACKELIN Pantoprazole Sodium (Protonix Ec Tab) 40 mg PO DAILY JACKELIN Rosuvastatin Calcium (Crestor) 5 mg PO QPM JACKELIN Spironolactone (Aldactone) 25 mg PO BID JACKELIN Physical Exam - Constitutional Appears: Chronically Ill - Head Exam Head Exam: ATRAUMATIC, NORMAL INSPECTION, NORMOCEPHALIC - Eye Exam Eye Exam: EOMI, Normal appearance, PERRL - ENT Exam ENT Exam: Mucous Membranes Moist, Normal Exam - Neck Exam Neck exam: Positive for: Normal Inspection - Respiratory Exam Respiratory Exam: Decreased Breath Sounds, Respiratory Distress. absent: Accessory Muscle Use, Rales, Wheezes - Cardiovascular Exam Cardiovascular Exam: Tachycardia, +S1, +S2, Systolic Murmur - GI/Abdominal Exam GI & Abdominal Exam: Distended, Normal Bowel Sounds, Soft. absent: Firm, Guarding, Rebound, Rigid, Tenderness - Extremities Exam Extremities exam: Positive for: calf tenderness (L>R), normal capillary refill, pedal pulses present - Back Exam Back exam: NORMAL INSPECTION - Neurological Exam Neurological exam: Alert, Oriented x3 - Skin Skin Exam: Dry, Intact, Normal Color, Warm Results - Vital Signs Recent Vital Signs: Last Vital Signs Temp Pulse 124 H 08/06/18 16:17 Resp 17 08/06/18 16:17 BP 110/80 08/06/18 16:17 Pulse Ox 100 08/06/18 17:36 - Labs Result Diagrams: 08/06/18 13:35 08/06/18 13:35 Labs: Laboratory Results - last 24 hr 08/06/18 08/06/18 08/06/18 13:35 13:35 13:35 WBC 8.5 RBC 5.34 Hgb 14.0 Hct 43.7 MCV 81.9 D MCH 26.2 L MCHC 32.0 L RDW 20.1 H Plt Count 239 D MPV 9.0 Neut % (Auto) 65.1 Lymph % (Auto) 25.3 [place] % (Auto) 9.0 Eos % (Auto) 0.0 Baso % (Auto) 0.6 Neut # (Auto) 5.5 Lymph # (Auto) 2.1 [place] # (Auto) 0.8 Eos # (Auto) 0.0 Baso # (Auto) 0.0 PT 28.6 H INR 2.6 APTT 31.0 D-Dimer, Quantitative 5431 H Sodium 138 Potassium 4.7 Chloride 104 Carbon Dioxide 15 L Anion Gap 23 H BUN 19 Creatinine 1.2 Est GFR ( Amer) > 60 Est GFR (Non-Af Amer) > 60 Random Glucose 99 Calcium 9.4 Total Bilirubin 3.7 H AST 67 H D ALT 50 Alkaline Phosphatase 63 Troponin I 0.0210 NT-Pro-B Natriuret Pep 6600 H Total Protein 7.3 Albumin 4.1 Globulin 3.2 Albumin/Globulin Ratio 1.3 Urine Opiates Screen Urine Methadone Screen Ur Barbiturates Screen Ur Phencyclidine Scrn Ur Amphetamines Screen U Benzodiazepines Scrn U Oth Cocaine Metabols U Cannabinoids Screen Alcohol, Quantitative < 10 08/06/18 13:57 WBC RBC Hgb Hct MCV MCH MCHC RDW Plt Count MPV Neut % (Auto) Lymph % (Auto) [place] % (Auto) Eos % (Auto) Baso % (Auto) Neut # (Auto) Lymph # (Auto) [place] # (Auto) Eos # (Auto) Baso # (Auto) PT INR APTT D-Dimer, Quantitative Sodium Potassium Chloride Carbon Dioxide Anion Gap BUN Creatinine Est GFR ( Amer) Est GFR (Non-Af Amer) Random Glucose Calcium Total Bilirubin AST ALT Alkaline Phosphatase Troponin I NT-Pro-B Natriuret Pep Total Protein Albumin Globulin Albumin/Globulin Ratio Urine Opiates Screen Negative Urine Methadone Screen Negative Ur Barbiturates Screen Negative Ur Phencyclidine Scrn Negative Ur Amphetamines Screen Negative U Benzodiazepines Scrn Negative U Oth Cocaine Metabols Negative U Cannabinoids Screen Negative Alcohol, Quantitative Assessment & Plan - Assessment and Plan (Free Text) Assessment: 38 yo male with pmhx of severe systolic and diastolic heart failure with edema, nonischemic cardiomyopathy, medication noncompliance, HTN, HLD presenting to ED with acute DVT/PE. Plan: Acute DVT/PE -D dimer 5431 -tachycardic -Duplex LE: acute L leg DVT -CTA chest: Filling defect arising within distal R main pulmonary artery involving distal pulmonary artery branches. No evidence of saddle embolus. No discrete PE identified on the left. Small cluster of cystic foci and associated atelectasis at RLL. Focal ground glass infiltrate within the LLL. Focal patchy ground glass opacity within the LLL adjacent to heart border. -Cardiology (Dr. Mccarty) consulted -Surgery (Dr. Alvares) consulted for IVC filter eval -ECHO ordered -pt loaded with therapeutic lovenox in ED -heparin gtt -ASA 81 mg PO daily HFrEF -BNP 6600 -f/u repeat ECHO -lasix 40 mg IVP daily -Aldactone 25 mg PO daily -Lisinopril 10 mg PO daily -coreg 6.25 mg PO q12 Hx of medication noncompliance -From prior admission (04/2018): pt referred to [facility] Heart Transplant Program unsuccessful. Spoke to Dr. Mojica 04/26 at 7:59am regarding patient, who confirmed non-acceptance to the program due to the red flags of 1) noncompliance 2) homelessness 3) lack of insurance. Should circumstances change, Dr. Mojica states that patient can be reconsidered. Dr. Mojica's number: [phone]. Program number: [phone] (Tita Almodovar). [email or web address] -f/u social recs Hx of HTN -currently normotensive, continue to monitor -resume home meds PPx, Diet, Disposition -DVT: heparin gtt -GI: protonix 40 mg IVP daily -Diet: HHD -PT on board Case discussed with Dr. Moise Causey DO, PGY-1 <Rodo Phipps S - Last Filed: 08/06/18 18:58> Meds - Medications Medications: Current Medications Aspirin (Aspirin Chewable) 81 mg PO DAILY JACKELIN Carvedilol (Coreg) 6.25 mg PO BID JACKELIN Furosemide (Lasix) 40 mg IVP DAILY JACKELIN Heparin Sodium/Sodium Chloride (Heparin 77807 Units/250ml 1/2 Normal Saline) 25,000 units in 250 mls @ 17.962 mls/hr IV .[id number] PRN; Protocol PRN Reason: ADJUST RATE PER PROTOCOL Lisinopril (Zestril) 20 mg PO DAILY JACKELIN Pantoprazole Sodium (Protonix Ec Tab) 40 mg PO DAILY JACKELIN Rosuvastatin Calcium (Crestor) 5 mg PO QPM JACKELIN Spironolactone (Aldactone) 25 mg PO DAILY [facility] Results - Vital Signs Recent Vital Signs: Last Vital Signs Temp 97.4 F L 08/06/18 18:14 Pulse 122 H 08/06/18 18:14 Resp 12 08/06/18 18:14 BP 124/91 H 08/06/18 18:14 Pulse Ox 99 08/06/18 18:14 - Labs Result Diagrams: 08/06/18 13:35 08/06/18 13:35 Labs: Laboratory Results - last 24 hr 08/06/18 08/06/18 08/06/18 13:35 13:35 13:35 WBC 8.5 RBC 5.34 Hgb 14.0 Hct 43.7 MCV 81.9 D MCH 26.2 L MCHC 32.0 L RDW 20.1 H Plt Count 239 D MPV 9.0 Neut % (Auto) 65.1 Lymph % (Auto) 25.3 [place] % (Auto) 9.0 Eos % (Auto) 0.0 Baso % (Auto) 0.6 Neut # (Auto) 5.5 Lymph # (Auto) 2.1 [place] # (Auto) 0.8 Eos # (Auto) 0.0 Baso # (Auto) 0.0 PT 28.6 H INR 2.6 APTT 31.0 D-Dimer, Quantitative 5431 H Sodium 138 Potassium 4.7 Chloride 104 Carbon Dioxide 15 L Anion Gap 23 H BUN 19 Creatinine 1.2 Est GFR ( Amer) > 60 Est GFR (Non-Af Amer) > 60 Random Glucose 99 Calcium 9.4 Total Bilirubin 3.7 H AST 67 H D ALT 50 Alkaline Phosphatase 63 Troponin I 0.0210 NT-Pro-B Natriuret Pep 6600 H Total Protein 7.3 Albumin 4.1 Globulin 3.2 Albumin/Globulin Ratio 1.3 Urine Opiates Screen Urine Methadone Screen Ur Barbiturates Screen Ur Phencyclidine Scrn Ur Amphetamines Screen U Benzodiazepines Scrn U Oth Cocaine Metabols U Cannabinoids Screen Alcohol, Quantitative < 10 08/06/18 13:57 WBC RBC Hgb Hct MCV MCH MCHC RDW Plt Count MPV Neut % (Auto) Lymph % (Auto) [place] % (Auto) Eos % (Auto) Baso % (Auto) Neut # (Auto) Lymph # (Auto) [place] # (Auto) Eos # (Auto) Baso # (Auto) PT INR APTT D-Dimer, Quantitative Sodium Potassium Chloride Carbon Dioxide Anion Gap BUN Creatinine Est GFR ( Amer) Est GFR (Non-Af Amer) Random Glucose Calcium Total Bilirubin AST ALT Alkaline Phosphatase Troponin I NT-Pro-B Natriuret Pep Total Protein Albumin Globulin Albumin/Globulin Ratio Urine Opiates Screen Negative Urine Methadone Screen Negative Ur Barbiturates Screen Negative Ur Phencyclidine Scrn Negative Ur Amphetamines Screen Negative U Benzodiazepines Scrn Negative U Oth Cocaine Metabols Negative U Cannabinoids Screen Negative Alcohol, Quantitative Attending/Attestation - Attestation I have personally seen and examined this patient.: Yes I have fully participated in the care of the patient.: Yes I have reviewed all pertinent clinical information: Yes Notes (Text): 08/06/18 18:57 Patient seen and examined 38-year-old male with history of ischemic cardiomyopathy ejection fraction 30% presented with leg swelling, shortness of breath and pleuritic chest pain. Patient found to have DVT And CT angios positive for pulmonary embolism Patient hemodynamically stable Started on IV heparin echocardiogram ICU observation and monitoring cardiology consult
[2018-08-06] MEDS ORDERED: Heparin25000 units/250ml 1/2NS 25,000 UNITS/250 ML BAG IV PRN ×2 (18:10→19:17)
--- NOTE | 2018-08-06 19:06 | CP.PCM.CON ---
History of Present Illness - History of Present Illness History of Present Illness: CC: Leg Pain and dyspnea Patient is a 38 year old with past medical history of HFrEF (EF 13.59%, ECHO 01/2018), non-ischemic cardiomyopathy, HTN, HLD, medication noncompliance presenting to ED with bilateral leg swelling and tenderness (L>R), shortness of breath, and pleuritic chest pain that began about 1 month ago. Patient states he is more sedentary within the past month that normally, does not leave his house much due to severe shortness of breath with physical exertion. Patient has known history of severe systolic CHF, EF noted to be 13%, had life vest for some time but it was taken away per patient. 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 No fevers/chills, dizziness, LOC, abdominal pain, n/v/d/c. 12 pt ROS reviewed and otherwise negative. PMHx: chronic systolic HF, nonischemic cardiomyopathy, HTN, HLD, cholecystitis, medication noncompliance PSHx: denies Allergies: NKDA Home Medications: Reviewed Family Hx: Father and Grandfather - CHF, father due to complications at age 48, Mother--HTN Social Hx: Former smoker--smoked for approximately 20 years, 2 packs per day. Patient states he no longer drinks alcohol, used to drink once per week. Unemployed, lives with family, supported financially by his Aunt . Emergency Contact: Aundawson Flores Review of Systems - Review of Systems All systems: reviewed and no additional remarkable complaints except Review of Systems: as per HPI Meds Allergies/Adverse Reactions: Allergies Allergy/AdvReac Type Severity Reaction Status Date / Time No Known Allergies Allergy Verified 02/08/18 09:55 - Medications Medications: Current Medications Aspirin (Aspirin Chewable) 81 mg PO DAILY JACKELIN Carvedilol (Coreg) 6.25 mg PO BID JACKELIN Enoxaparin Sodium (Lovenox) 99.79 mg SC Q12H JACKELIN Furosemide (Lasix) 40 mg IVP DAILY JACKELIN Lisinopril (Zestril) 20 mg PO DAILY JACKELIN Pantoprazole Sodium (Protonix Ec Tab) 40 mg PO DAILY JACKELIN Rosuvastatin Calcium (Crestor) 5 mg PO QPM JACKELIN Spironolactone (Aldactone) 25 mg PO BID JACKELIN Physical Exam - Constitutional Appears: Chronically Ill - Head Exam Head Exam: ATRAUMATIC, NORMAL INSPECTION, NORMOCEPHALIC - Eye Exam Eye Exam: EOMI, Normal appearance, PERRL - ENT Exam ENT Exam: Mucous Membranes Moist, Normal Exam - Neck Exam Neck exam: Positive for: Normal Inspection - Respiratory Exam Respiratory Exam: Decreased Breath Sounds, Respiratory Distress. absent: Accessory Muscle Use, Rales, Wheezes - Cardiovascular Exam Cardiovascular Exam: Tachycardia, +S1, +S2, Systolic Murmur - GI/Abdominal Exam GI & Abdominal Exam: Distended, Normal Bowel Sounds, Soft. absent: Firm, Guarding, Rebound, Rigid, Tenderness - Extremities Exam Extremities exam: Positive for: calf tenderness (L>R), normal capillary refill, pedal pulses present - Back Exam Back exam: NORMAL INSPECTION - Neurological Exam Neurological exam: Alert, Oriented x3 - Skin Skin Exam: Dry, Intact, Normal Color, Warm Results - Vital Signs Recent Vital Signs: Last Vital Signs Temp Pulse 124 H 08/06/18 16:17 Resp 17 08/06/18 16:17 BP 110/80 08/06/18 16:17 Pulse Ox 100 08/06/18 17:36 - Labs Result Diagrams: 08/06/18 13:35 08/06/18 13:35 Labs: Laboratory Results - last 24 hr 08/06/18 08/06/18 08/06/18 13:35 13:35 13:35 WBC 8.5 RBC 5.34 Hgb 14.0 Hct 43.7 MCV 81.9 D MCH 26.2 L MCHC 32.0 L RDW 20.1 H Plt Count 239 D MPV 9.0 Neut % (Auto) 65.1 Lymph % (Auto) 25.3 [place] % (Auto) 9.0 Eos % (Auto) 0.0 Baso % (Auto) 0.6 Neut # (Auto) 5.5 Lymph # (Auto) 2.1 [place] # (Auto) 0.8 Eos # (Auto) 0.0 Baso # (Auto) 0.0 PT 28.6 H INR 2.6 APTT 31.0 D-Dimer, Quantitative 5431 H Sodium 138 Potassium 4.7 Chloride 104 Carbon Dioxide 15 L Anion Gap 23 H BUN 19 Creatinine 1.2 Est GFR ( Amer) > 60 Est GFR (Non-Af Amer) > 60 Random Glucose 99 Calcium 9.4 Total Bilirubin 3.7 H AST 67 H D ALT 50 Alkaline Phosphatase 63 Troponin I 0.0210 NT-Pro-B Natriuret Pep 6600 H Total Protein 7.3 Albumin 4.1 Globulin 3.2 Albumin/Globulin Ratio 1.3 Urine Opiates Screen Urine Methadone Screen Ur Barbiturates Screen Ur Phencyclidine Scrn Ur Amphetamines Screen U Benzodiazepines Scrn U Oth Cocaine Metabols U Cannabinoids Screen Alcohol, Quantitative < 10 08/06/18 13:57 WBC RBC Hgb Hct MCV MCH MCHC RDW Plt Count MPV Neut % (Auto) Lymph % (Auto) [place] % (Auto) Eos % (Auto) Baso % (Auto) Neut # (Auto) Lymph # (Auto) [place] # (Auto) Eos # (Auto) Baso # (Auto) PT INR APTT D-Dimer, Quantitative Sodium Potassium Chloride Carbon Dioxide Anion Gap BUN Creatinine Est GFR ( Amer) Est GFR (Non-Af Amer) Random Glucose Calcium Total Bilirubin AST ALT Alkaline Phosphatase Troponin I NT-Pro-B Natriuret Pep Total Protein Albumin Globulin Albumin/Globulin Ratio Urine Opiates Screen Negative Urine Methadone Screen Negative Ur Barbiturates Screen Negative Ur Phencyclidine Scrn Negative Ur Amphetamines Screen Negative U Benzodiazepines Scrn Negative U Oth Cocaine Metabols Negative U Cannabinoids Screen Negative Alcohol, Quantitative Assessment & Plan - Assessment and Plan (Free Text) Assessment: 38 yo male with pmhx of severe systolic and diastolic heart failure with edema, nonischemic cardiomyopathy, medication noncompliance, HTN, HLD presenting to ED with acute DVT/PE. Plan: Acute DVT/PE -D dimer 5431 -tachycardic -Duplex LE: acute L leg DVT -CTA chest: Filling defect arising within distal R main pulmonary artery involving distal pulmonary artery branches. No evidence of saddle embolus. No discrete PE identified on the left. Small cluster of cystic foci and associated atelectasis at RLL. Focal ground glass infiltrate within the LLL. Focal patchy ground glass opacity within the LLL adjacent to heart border. -Surgery (Dr. Alvares) consulted for IVC filter eval -ECHO ordered -pt loaded with therapeutic lovenox in ED -heparin gtt -ASA 81 mg PO daily HFrEF -BNP 6600 -f/u repeat ECHO -lasix 40 mg IVP daily -Aldactone 25 mg PO daily -Lisinopril 10 mg PO daily -coreg 6.25 mg PO q12 Hx of medication noncompliance -From prior admission (04/2018): pt referred to [facility] Heart Transplant Program unsuccessful. Spoke to Dr. Mojica 04/26 at 7:59am regarding patient, who confirmed non-acceptance to the program due to the red flags of 1) noncompliance 2) homelessness 3) lack of insurance. Should circumstances change, Dr. Mojica states that patient can be reconsidered. Dr. Mojica's number: [phone]. Program number: [phone] (Tita Almodovar). [email or web address] -f/u social recs Hx of HTN -currently normotensive, continue to monitor -resume home meds PPx, Diet, Disposition -DVT: heparin gtt -GI: protonix 40 mg IVP daily -Diet: HHD -PT on board Past Patient History - Infectious Disease Hx of Infectious Diseases: None - Past Medical History & Family History Past Medical History?: Yes - Past Social History Smoking Status: Former Smoker - CARDIAC Hx Congestive Heart Failure: Yes Hx Hypertension: Yes Hx Pacemaker: Yes - PULMONARY Hx Respiratory Disorders: Yes Hx Pulmonary Edema: Yes - NEUROLOGICAL Hx Neurological Disorder: No - HEENT Hx HEENT Problems: No - RENAL Hx Chronic Kidney Disease: No - ENDOCRINE/METABOLIC Hx Endocrine Disorders: No - HEMATOLOGICAL/ONCOLOGICAL Hx Blood Disorders: No - INTEGUMENTARY Hx Dermatological Problems: No - MUSCULOSKELETAL/RHEUMATOLOGICAL Hx Musculoskeletal Disorders: No Hx Falls: No - GASTROINTESTINAL Hx Gall Bladder Disease: Yes (choleystitis) - GENITOURINARY/GYNECOLOGICAL Hx Genitourinary Disorders: No - PSYCHIATRIC Hx Substance Use: No - SURGICAL HISTORY Hx Surgeries: No - ANESTHESIA Hx Anesthesia: Yes Hx Anesthesia Reactions: No Hx Malignant Hyperthermia: No Meds Allergies/Adverse Reactions: Allergies Allergy/AdvReac Type Severity Reaction Status Date / Time No Known Allergies Allergy Verified 02/08/18 09:55 - Medications Medications: Current Medications Aspirin (Aspirin Chewable) 81 mg PO DAILY JACKELIN Carvedilol (Coreg) 6.25 mg PO BID JACKELIN Furosemide (Lasix) 40 mg IVP DAILY JACKELIN Heparin Sodium/Sodium Chloride (Heparin 46122 Units/250ml 1/2 Normal Saline) 25,000 units in 250 mls @ 17.962 mls/hr IV .[id number] PRN; Protocol PRN Reason: ADJUST RATE PER PROTOCOL Lisinopril (Zestril) 20 mg PO DAILY JACKELIN Pantoprazole Sodium (Protonix Ec Tab) 40 mg PO DAILY JACKELIN Rosuvastatin Calcium (Crestor) 5 mg PO QPM JACKELIN Spironolactone (Aldactone) 25 mg PO DAILY JACKELIN Results - Vital Signs Recent Vital Signs: Last Vital Signs Temp 97.4 F L 08/06/18 18:14 Pulse 122 H 08/06/18 18:14 Resp 12 08/06/18 18:14 BP 124/91 H 08/06/18 18:14 Pulse Ox 99 08/06/18 18:14 - Labs Result Diagrams: 08/06/18 13:35 08/06/18 13:35 Labs: Laboratory Results - last 24 hr 08/06/18 08/06/18 08/06/18 13:35 13:35 13:35 WBC 8.5 RBC 5.34 Hgb 14.0 Hct 43.7 MCV 81.9 D MCH 26.2 L MCHC 32.0 L RDW 20.1 H Plt Count 239 D MPV 9.0 Neut % (Auto) 65.1 Lymph % (Auto) 25.3 [place] % (Auto) 9.0 Eos % (Auto) 0.0 Baso % (Auto) 0.6 Neut # (Auto) 5.5 Lymph # (Auto) 2.1 [place] # (Auto) 0.8 Eos # (Auto) 0.0 Baso # (Auto) 0.0 PT 28.6 H INR 2.6 APTT 31.0 D-Dimer, Quantitative 5431 H Sodium 138 Potassium 4.7 Chloride 104 Carbon Dioxide 15 L Anion Gap 23 H BUN 19 Creatinine 1.2 Est GFR ( Amer) > 60 Est GFR (Non-Af Amer) > 60 Random Glucose 99 Calcium 9.4 Total Bilirubin 3.7 H AST 67 H D ALT 50 Alkaline Phosphatase 63 Troponin I 0.0210 NT-Pro-B Natriuret Pep 6600 H Total Protein 7.3 Albumin 4.1 Globulin 3.2 Albumin/Globulin Ratio 1.3 Urine Opiates Screen Urine Methadone Screen Ur Barbiturates Screen Ur Phencyclidine Scrn Ur Amphetamines Screen U Benzodiazepines Scrn U Oth Cocaine Metabols U Cannabinoids Screen Alcohol, Quantitative < 10 08/06/18 13:57 WBC RBC Hgb Hct MCV MCH MCHC RDW Plt Count MPV Neut % (Auto) Lymph % (Auto) [place] % (Auto) Eos % (Auto) Baso % (Auto) Neut # (Auto) Lymph # (Auto) [place] # (Auto) Eos # (Auto) Baso # (Auto) PT INR APTT D-Dimer, Quantitative Sodium Potassium Chloride Carbon Dioxide Anion Gap BUN Creatinine Est GFR ( Amer) Est GFR (Non-Af Amer) Random Glucose Calcium Total Bilirubin AST ALT Alkaline Phosphatase Troponin I NT-Pro-B Natriuret Pep Total Protein Albumin Globulin Albumin/Globulin Ratio Urine Opiates Screen Negative Urine Methadone Screen Negative Ur Barbiturates Screen Negative Ur Phencyclidine Scrn Negative Ur Amphetamines Screen Negative U Benzodiazepines Scrn Negative U Oth Cocaine Metabols Negative U Cannabinoids Screen Negative Alcohol, Quantitative
[2018-08-06 19:16] VITALS: BMI 30.1
[2018-08-07] MEDS ORDERED: Enoxaparin 100 mg Syringe SC SCH (03:00)
--- NOTE | 2018-08-07 05:03 | CP.PCM.CON ---
History of Present Illness - History of Present Illness History of Present Illness: Surgery Consult note. Dr Alvares service 38yo M with PMHx of CHF (EF 13%), Cardiomyopathy, HTN, HLD, medication non- compliance who was admitted to the [facility] ICU with acute DVT of Left leg and R peripheral PE. Patient reports symptoms of SOB and worsening dyspnea and b/l lower extremity pain with walking for the past month and gradually worsening. Patient denies any fevers but does express having chills off and on. Denies any N/V/D. No abdominal pain. Vascular Surgery consult obtained for evaluation for possible IVC filter placement. PMHx: CHF (EF 13%), Cardiomyopathy, HTN, HLD, non-compliance PSHx: Denies Social Hx: Former tobacco use, Denies ETOH use, Denies illicit drugs Family Hx: Father and grandfather w CHF; Mother w HTN NKDA Review of Systems - Review of Systems All systems: reviewed and no additional remarkable complaints except Past Patient History - Infectious Disease Hx of Infectious Diseases: None - Past Medical History & Family History Past Medical History?: Yes Past Family History: Reviewed and not pertinent - Past Social History Smoking Status: Former Smoker Alcohol: None Drugs: Denies Home Situation {Lives}: With Family - CARDIAC Hx Congestive Heart Failure: Yes Hx Hypertension: Yes Hx Pacemaker: Yes - PULMONARY Hx Respiratory Disorders: Yes Hx Pulmonary Edema: Yes - NEUROLOGICAL Hx Neurological Disorder: No - HEENT Hx HEENT Problems: No - RENAL Hx Chronic Kidney Disease: No - ENDOCRINE/METABOLIC Hx Endocrine Disorders: No - HEMATOLOGICAL/ONCOLOGICAL Hx Blood Disorders: No - INTEGUMENTARY Hx Dermatological Problems: No - MUSCULOSKELETAL/RHEUMATOLOGICAL Hx Musculoskeletal Disorders: No Hx Falls: No - GASTROINTESTINAL Hx Gall Bladder Disease: Yes (choleystitis) - GENITOURINARY/GYNECOLOGICAL Hx Genitourinary Disorders: No - PSYCHIATRIC Hx Substance Use: No - SURGICAL HISTORY Hx Surgeries: No - ANESTHESIA Hx Anesthesia: Yes Hx Anesthesia Reactions: No Hx Malignant Hyperthermia: No Has any member of the family had a problem w/ anesthesia?: No Meds Allergies/Adverse Reactions: Allergies Allergy/AdvReac Type Severity Reaction Status Date / Time No Known Allergies Allergy Verified 02/08/18 09:55 - Medications Medications: Current Medications Aspirin (Aspirin Chewable) 81 mg PO DAILY [facility] Carvedilol (Coreg) 6.25 mg PO BID [facility] Last Admin: 08/06/18 19:06 Dose: 6.25 mg Furosemide (Lasix) 40 mg IVP DAILY [facility] Heparin Sodium/Sodium Chloride (Heparin 07052 Units/250ml 1/2 Normal Saline) 25,000 units in 250 mls @ 17.64 mls/hr IV .[id number] PRN; Protocol PRN Reason: ADJUST RATE PER PROTOCOL Last Titration: 08/07/18 03:55 Dose: 15 units/kg/hr, 14.7 mls/hr Lisinopril (Zestril) 20 mg PO DAILY [facility] Pantoprazole Sodium (Protonix Ec Tab) 40 mg PO DAILY [facility] Rosuvastatin Calcium (Crestor) 5 mg PO QPM [facility] Last Admin: 08/06/18 19:06 Dose: 5 mg Spironolactone (Aldactone) 25 mg PO DAILY [facility] Physical Exam - Head Exam Head Exam: ATRAUMATIC, NORMAL INSPECTION, NORMOCEPHALIC - Eye Exam Eye Exam: EOMI, Normal appearance. absent: Scleral icterus - ENT Exam ENT Exam: Mucous Membranes Moist - Respiratory Exam Respiratory Exam: NORMAL BREATHING PATTERN. absent: Accessory Muscle Use - Cardiovascular Exam Cardiovascular Exam: Tachycardia. absent: JVD - GI/Abdominal Exam GI & Abdominal Exam: Soft. absent: Distended, Firm, Guarding, Tenderness - Extremities Exam Extremities exam: Positive for: calf tenderness (Left sided calf tenderness on palpation) Additional comments: bilateral lower extremity non-pitting edema (L>R) - Neurological Exam Neurological exam: Alert, Oriented x3 Results - Vital Signs Recent Vital Signs: Last Vital Signs Temp 99.7 F H 08/07/18 00:00 Pulse 84 08/07/18 04:10 Resp 23 08/07/18 04:10 BP 86/40 L 08/07/18 03:43 Pulse Ox 100 08/07/18 04:10 - Labs Result Diagrams: 08/07/18 05:24 08/07/18 06:40 Labs: Laboratory Results - last 24 hr 08/06/18 08/06/18 08/06/18 13:35 13:35 13:35 WBC 8.5 RBC 5.34 Hgb 14.0 Hct 43.7 MCV 81.9 D MCH 26.2 L MCHC 32.0 L RDW 20.1 H Plt Count 239 D MPV 9.0 Neut % (Auto) 65.1 Lymph % (Auto) 25.3 [place] % (Auto) 9.0 Eos % (Auto) 0.0 Baso % (Auto) 0.6 Neut # (Auto) 5.5 Lymph # (Auto) 2.1 [place] # (Auto) 0.8 Eos # (Auto) 0.0 Baso # (Auto) 0.0 PT 28.6 H INR 2.6 APTT 31.0 D-Dimer, Quantitative 5431 H Sodium 138 Potassium 4.7 Chloride 104 Carbon Dioxide 15 L Anion Gap 23 H BUN 19 Creatinine 1.2 Est GFR ( Amer) > 60 Est GFR (Non-Af Amer) > 60 Random Glucose 99 Calcium 9.4 Total Bilirubin 3.7 H AST 67 H D ALT 50 Alkaline Phosphatase 63 Troponin I 0.0210 NT-Pro-B Natriuret Pep 6600 H Total Protein 7.3 Albumin 4.1 Globulin 3.2 Albumin/Globulin Ratio 1.3 Urine Opiates Screen Urine Methadone Screen Ur Barbiturates Screen Ur Phencyclidine Scrn Ur Amphetamines Screen U Benzodiazepines Scrn U Oth Cocaine Metabols U Cannabinoids Screen Alcohol, Quantitative < 10 08/06/18 13:57 WBC RBC Hgb Hct MCV MCH MCHC RDW Plt Count MPV Neut % (Auto) Lymph % (Auto) [place] % (Auto) Eos % (Auto) Baso % (Auto) Neut # (Auto) Lymph # (Auto) [place] # (Auto) Eos # (Auto) Baso # (Auto) PT INR APTT D-Dimer, Quantitative Sodium Potassium Chloride Carbon Dioxide Anion Gap BUN Creatinine Est GFR ( Amer) Est GFR (Non-Af Amer) Random Glucose Calcium Total Bilirubin AST ALT Alkaline Phosphatase Troponin I NT-Pro-B Natriuret Pep Total Protein Albumin Globulin Albumin/Globulin Ratio Urine Opiates Screen Negative Urine Methadone Screen Negative Ur Barbiturates Screen Negative Ur Phencyclidine Scrn Negative Ur Amphetamines Screen Negative U Benzodiazepines Scrn Negative U Oth Cocaine Metabols Negative U Cannabinoids Screen Negative Alcohol, Quantitative Assessment & Plan - Assessment and Plan (Free Text) Assessment: 38yo M with acute left DVT and peripheral R Pulmonary Embolus. Vascular surgery consult obtained for possible IVC filter placement Plan: - NPO past midnight - Possible OR for IVC Filter placement today - ICU management - Maintain patient on heparin ggt as per protocol - f/u cardiology recs - f/u nephrology recs - We will monitor patient's clinical course and make further recommendations as warranted Further recs as per Dr. Giorgio Phelps PGY2 surgery
[2018-08-07 05:28] LABS: BASO % 0.2 % (0.0-2.0); HEMOGLOBIN 14.6 g/dL (12.0-18.0); LYMPH % 24.7 % (20.0-40.0); MEAN CELL VOLUME 85.5 fL (80.0-94.0); MEAN CORPUSCULAR HGB CONC 30.4 g/dL (33.0-37.0); MEAN PLATELET VOLUME 9.3 fL (7.2-11.7); MONO # 0.5 K/uL (0.0-0.8); MONO % 6.5 % (0.0-10.0); NEUT # 5.5 K/uL (1.8-7.0); NEUT % 68.6 % (50.0-75.0); NRBC % 0.4 % (0.0-2.0); RBC 5.6 Mil/uL (4.40-5.90); RED CELL DISTRIBUTION WIDTH 20.9 % (11.5-14.5); WHITE BLOOD COUNT 8.1 K/uL (4.8-10.8)
[2018-08-07 08:22] LABS: ALB/GLOB RATIO 1.2 (1.0-2.1); ALBUMIN 3.5 g/dL (3.5-5.0); CALCIUM 8.1 mg/dl (8.6-10.4)
[2018-08-07] MEDS ORDERED: Dextrose 50% SYRINGE Inj (50 ml) IV STA ×2 (09:19→13:17)
[2018-08-07 09:39] LABS: ABG ALLEN TEST PO; ARTERIAL BLOOD GAS HCO3 10.3 mmol/L (21-28); ARTERIAL BLOOD GAS PCO2 20 mm/Hg (35-45); ARTERIAL BLOOD GAS PH 7.18 (7.35-7.45); ARTERIAL BLOOD GAS PO2 152 mm/Hg (80-100); ARTERIAL BLOOD GAS TCO2 8.1 mmol/L (22-28)
[2018-08-07] MEDS ORDERED: Sodium Bicarbonate (8.4%) 50 mEq Vial IVP ONE ×2 (10:00)
[2018-08-07] MEDS: Pantoprazole 40 mg EC Tab PO SCH (10:13)
--- NOTE | 2018-08-07 10:37 | CP.CCUPN ---
<Ervin Causey - Last Filed: 08/07/18 10:34> CCU Subjective - Physician Review Subjective (Free Text): 08/07/18 10:34 PGY-1 Critical Care Progress Note for Dr. Phipps Patient seen and examined at bedside this AM. No acute overnight events reported. On heparin gtt for acute DVT/PE cool distal extremities b/l Pending ECHO Lasix and lisnopril d/c'd due to JENI acidotic on ABG, elevated lactate 2 amp HCO3 50 given NPO for possible IVC filter D5W @ 125 cc/hr CCU Objective - Vital Signs / Intake & Output Vital Signs (Last 4 hours): Vital Signs Temp Pulse Resp BP Pulse Ox 08/07/18 09:41 84 21 114/84 100 08/07/18 09:40 84 22 100 08/07/18 09:30 85 21 100 08/07/18 09:20 80 21 100 08/07/18 09:10 81 22 100 08/07/18 09:00 81 22 100 08/07/18 08:50 79 16 100 08/07/18 08:42 81 21 109/86 100 08/07/18 08:40 81 20 100 08/07/18 08:30 81 16 100 08/07/18 08:20 82 22 100 08/07/18 08:10 81 22 100 08/07/18 08:00 97.9 F 81 20 100 08/07/18 07:50 80 21 100 08/07/18 07:42 80 26 H 106/69 100 08/07/18 07:40 79 27 H 100 08/07/18 07:30 80 21 99 08/07/18 07:20 79 20 98 08/07/18 07:10 80 21 100 08/07/18 07:00 82 21 100 08/07/18 06:50 81 24 100 08/07/18 06:43 81 23 103/71 100 08/07/18 06:40 82 25 H 99 Intake and Output (Last 8hrs): Intake & Output 08/06/18 08/07/18 08/07/18 22:59 06:59 14:59 Intake Total 52.8 208.7 264.1 Output Total 200 0 Balance -147.2 208.7 264.1 Weight 98 kg 98 kg Intake: IV 0 220 Intake, IV Amount 52.8 208.7 44.1 Right Forearm 114.7 left ac 52.8 94.0 44.1 Output: Urine 200 0 Urine, Voided 200 0 Other: # Voids Urine, Voided 1 - Physical Exam Head: Positive for: Atraumatic, Normocephalic Pupils: Positive for: PERRL Extroacular Muscles: Positive for: EOMI Conjunctiva: Positive for: Normal Mouth: Positive for: Moist Mucous Membranes Respiratory/Chest: Positive for: Decreased Breath Sounds, Rales Cardiovascular: Positive for: Regular Rate and Rhythm, Normal S1, S2 Abdomen: Positive for: Normal Bowel Sounds. Negative for: Tenderness, Distention, Rebound, Guarding Back: Positive for: Normal Inspection Upper Extremity: Positive for: Normal Inspection. Negative for: Cyanosis, Edema Lower Extremity: Positive for: Normal Inspection, NORMAL PULSES. Negative for: Edema, CALF TENDERNESS Neurological: Positive for: CN II-XII Intact, Speech Normal Skin: Positive for: Dry, Normal Color, Cold (cool distal extremities b/l ) Psychiatric: Positive for: Alert, Oriented x 3 - Medications Active Medications: Active Medications Generic Name Dose Route Start Last Admin Trade Name Freq PRN Reason Stop Dose Admin Aspirin 81 mg 08/07/18 10:00 08/07/18 10:13 Aspirin Chewable PO 81 mg DAILY JACKELIN Administration Carvedilol 6.25 mg 08/06/18 18:00 08/07/18 10:13 Coreg PO 6.25 mg BID JACKELIN Administration Heparin Sodium/Sodium Chloride 25,000 units in 250 mls @ 17.64 mls/hr 08/06/18 19:17 08/07/18 10:18 Heparin 23368 Units/250ml 1/2 Normal Saline IV 0 units/kg/hr .[id number] PRN 0 mls/hr ADJUST RATE PER PROTOCOL Titration Protocol 18 UNITS/KG/HR Sodium Bicarbonate 150 meq/ 1,150 mls @ 125 mls/hr 08/07/18 09:30 Dextrose IV .[id number] JACKELIN Pantoprazole Sodium 40 mg 08/07/18 10:00 08/07/18 10:13 Protonix Ec Tab PO 40 mg DAILY JACKELIN Administration Rosuvastatin Calcium 5 mg 08/06/18 18:00 08/06/18 19:06 Crestor PO 5 mg QPM JACKELIN Administration - Patient Studies Lab Studies: Lab Studies 08/07/18 08/07/18 08/07/18 Range/Units 09:37 09:36 06:40 WBC (4.8-10.8) K/uL RBC (4.40-5.90) Mil/uL Hgb (12.0-18.0) g/dL Hct (35.0-51.0) % MCV (80.0-94.0) fL MCH (27.0-31.0) pg MCHC (33.0-37.0) g/dL RDW (11.5-14.5) % Plt Count (130-400) K/uL MPV (7.2-11.7) fL Neut % (Auto) (50.0-75.0) % Lymph % (Auto) (20.0-40.0) % [place] % (Auto) (0.0-10.0) % Eos % (Auto) (0.0-4.0) % Baso % (Auto) (0.0-2.0) % Neut # (Auto) (1.8-7.0) K/uL Lymph # (Auto) (1.0-4.3) K/uL [place] # (Auto) (0.0-0.8) K/uL Eos # (Auto) (0.0-0.7) K/uL Baso # (Auto) (0.0-0.2) K/uL PT (9.7-12.2) SECONDS INR APTT > 400.0 H* (21-34) SECONDS D-Dimer, Quantitative (0-243) ng/mlDDU Puncture Site Rra pCO2 20 L (35-45) mm/Hg pO2 152 H (80-100) mm/Hg HCO3 10.3 L (21-28) mmol/L ABG pH 7.18 L* (7.35-7.45) ABG Total CO2 8.1 L (22-28) mmol/L ABG O2 Saturation 100.0 H (95-98) % ABG Base Excess -18.8 L (-2.0-3.0) mmol/L Reyes Test Po ABG Potassium 6.8 H* (3.6-5.2) mmol/L Glucose 213 H (75-110) mg/dl Lactate 11.7 H* (0.7-2.1) mmol/L Liter Flow 2.0 Crit Value Called To Moise greenwood Crit Value Called By Claudia Crit Value Read Back Y Blood Gas Notified Time 939 Sodium 129.0 L 138 (132-148) mmol/L Potassium 5.6 H (3.6-5.2) mmol/L Chloride 99.0 107 (98-107) mmol/L Carbon Dioxide 9 L* D (22-30) mmol/L Anion Gap 26 H (10-20) BUN 21 H (9-20) mg/dL Creatinine 1.7 H (0.8-1.5) mg/dL Est GFR ( Amer) 55 Est GFR (Non-Af Amer) 46 Random Glucose 51 L D (75-110) mg/dL Calcium 8.1 L (8.6-10.4) mg/dl Total Bilirubin 3.4 H (0.2-1.3) mg/dL AST 88 H D (17-59) U/L ALT 55 (21-72) U/L Alkaline Phosphatase 53 (38-126) U/L Troponin I (0.00-0.120) ng/mL NT-Pro-B Natriuret Pep (0-450) pg/mL Total Protein 6.4 (6.3-8.3) g/dL Albumin 3.5 (3.5-5.0) g/dL Globulin 2.9 (2.2-3.9) gm/dL Albumin/Globulin Ratio 1.2 (1.0-2.1) Arterial Blood Potassium 6.8 H* (3.6-5.2) mmol/L Urine Opiates Screen (NEGATIVE) Urine Methadone Screen (NEGATIVE) Ur Barbiturates Screen (NEGATIVE) Ur Phencyclidine Scrn (NEGATIVE) Ur Amphetamines Screen (NEGATIVE) U Benzodiazepines Scrn (NEGATIVE) U Oth Cocaine Metabols (NEGATIVE) U Cannabinoids Screen (NEGATIVE) Alcohol, Quantitative (0-10) mg/dl 08/07/18 08/07/18 08/06/18 Range/Units 05:24 02:16 13:57 WBC 8.1 (4.8-10.8) K/uL RBC 5.60 (4.40-5.90) Mil/uL Hgb 14.6 (12.0-18.0) g/dL Hct 46.5 (35.0-51.0) % MCV 85.5 D (80.0-94.0) fL MCH 26.0 L (27.0-31.0) pg MCHC 30.4 L (33.0-37.0) g/dL RDW 20.9 H (11.5-14.5) % Plt Count 168 (130-400) K/uL MPV 9.3 (7.2-11.7) fL Neut % (Auto) 68.6 (50.0-75.0) % Lymph % (Auto) 24.7 (20.0-40.0) % [place] % (Auto) 6.5 (0.0-10.0) % Eos % (Auto) 0.0 (0.0-4.0) % Baso % (Auto) 0.2 (0.0-2.0) % Neut # (Auto) 5.5 (1.8-7.0) K/uL Lymph # (Auto) 2.0 (1.0-4.3) K/uL [place] # (Auto) 0.5 (0.0-0.8) K/uL Eos # (Auto) 0.0 (0.0-0.7) K/uL Baso # (Auto) 0.0 (0.0-0.2) K/uL PT (9.7-12.2) SECONDS INR APTT > 400.0 H* D (21-34) SECONDS D-Dimer, Quantitative (0-243) ng/mlDDU Puncture Site pCO2 (35-45) mm/Hg pO2 (80-100) mm/Hg HCO3 (21-28) mmol/L ABG pH (7.35-7.45) ABG Total CO2 (22-28) mmol/L ABG O2 Saturation (95-98) % ABG Base Excess (-2.0-3.0) mmol/L Reyes Test ABG Potassium (3.6-5.2) mmol/L Glucose (75-110) mg/dl Lactate (0.7-2.1) mmol/L Liter Flow Crit Value Called To Crit Value Called By Crit Value Read Back Blood Gas Notified Time Sodium (132-148) mmol/L Potassium (3.6-5.2) mmol/L Chloride (98-107) mmol/L Carbon Dioxide (22-30) mmol/L Anion Gap (10-20) BUN (9-20) mg/dL Creatinine (0.8-1.5) mg/dL Est GFR ( Amer) Est GFR (Non-Af Amer) Random Glucose (75-110) mg/dL Calcium (8.6-10.4) mg/dl Total Bilirubin (0.2-1.3) mg/dL AST (17-59) U/L ALT (21-72) U/L Alkaline Phosphatase (38-126) U/L Troponin I (0.00-0.120) ng/mL NT-Pro-B Natriuret Pep (0-450) pg/mL Total Protein (6.3-8.3) g/dL Albumin (3.5-5.0) g/dL Globulin (2.2-3.9) gm/dL Albumin/Globulin Ratio (1.0-2.1) Arterial Blood Potassium (3.6-5.2) mmol/L Urine Opiates Screen Negative (NEGATIVE) Urine Methadone Screen Negative (NEGATIVE) Ur Barbiturates Screen Negative (NEGATIVE) Ur Phencyclidine Scrn Negative (NEGATIVE) Ur Amphetamines Screen Negative (NEGATIVE) U Benzodiazepines Scrn Negative (NEGATIVE) U Oth Cocaine Metabols Negative (NEGATIVE) U Cannabinoids Screen Negative (NEGATIVE) Alcohol, Quantitative (0-10) mg/dl 08/06/18 08/06/18 08/06/18 Range/Units 13:35 13:35 13:35 WBC 8.5 (4.8-10.8) K/uL RBC 5.34 (4.40-5.90) Mil/uL Hgb 14.0 (12.0-18.0) g/dL Hct 43.7 (35.0-51.0) % MCV 81.9 D (80.0-94.0) fL MCH 26.2 L (27.0-31.0) pg MCHC 32.0 L (33.0-37.0) g/dL RDW 20.1 H (11.5-14.5) % Plt Count 239 D (130-400) K/uL MPV 9.0 (7.2-11.7) fL Neut % (Auto) 65.1 (50.0-75.0) % Lymph % (Auto) 25.3 (20.0-40.0) % [place] % (Auto) 9.0 (0.0-10.0) % Eos % (Auto) 0.0 (0.0-4.0) % Baso % (Auto) 0.6 (0.0-2.0) % Neut # (Auto) 5.5 (1.8-7.0) K/uL Lymph # (Auto) 2.1 (1.0-4.3) K/uL [place] # (Auto) 0.8 (0.0-0.8) K/uL Eos # (Auto) 0.0 (0.0-0.7) K/uL Baso # (Auto) 0.0 (0.0-0.2) K/uL PT 28.6 H (9.7-12.2) SECONDS INR 2.6 APTT 31.0 (21-34) SECONDS D-Dimer, Quantitative 5431 H (0-243) ng/mlDDU Puncture Site pCO2 (35-45) mm/Hg pO2 (80-100) mm/Hg HCO3 (21-28) mmol/L ABG pH (7.35-7.45) ABG Total CO2 (22-28) mmol/L ABG O2 Saturation (95-98) % ABG Base Excess (-2.0-3.0) mmol/L Reyes Test ABG Potassium (3.6-5.2) mmol/L Glucose (75-110) mg/dl Lactate (0.7-2.1) mmol/L Liter Flow Crit Value Called To Crit Value Called By Crit Value Read Back Blood Gas Notified Time Sodium 138 (132-148) mmol/L Potassium 4.7 (3.6-5.2) mmol/L Chloride 104 (98-107) mmol/L Carbon Dioxide 15 L (22-30) mmol/L Anion Gap 23 H (10-20) BUN 19 (9-20) mg/dL Creatinine 1.2 (0.8-1.5) mg/dL Est GFR ( Amer) > 60 Est GFR (Non-Af Amer) > 60 Random Glucose 99 (75-110) mg/dL Calcium 9.4 (8.6-10.4) mg/dl Total Bilirubin 3.7 H (0.2-1.3) mg/dL AST 67 H D (17-59) U/L ALT 50 (21-72) U/L Alkaline Phosphatase 63 (38-126) U/L Troponin I 0.0210 (0.00-0.120) ng/mL NT-Pro-B Natriuret Pep 6600 H (0-450) pg/mL Total Protein 7.3 (6.3-8.3) g/dL Albumin 4.1 (3.5-5.0) g/dL Globulin 3.2 (2.2-3.9) gm/dL Albumin/Globulin Ratio 1.3 (1.0-2.1) Arterial Blood Potassium (3.6-5.2) mmol/L Urine Opiates Screen (NEGATIVE) Urine Methadone Screen (NEGATIVE) Ur Barbiturates Screen (NEGATIVE) Ur Phencyclidine Scrn (NEGATIVE) Ur Amphetamines Screen (NEGATIVE) U Benzodiazepines Scrn (NEGATIVE) U Oth Cocaine Metabols (NEGATIVE) U Cannabinoids Screen (NEGATIVE) Alcohol, Quantitative < 10 (0-10) mg/dl Laboratory Results - last 24 hr 08/06/18 08/06/18 08/06/18 13:35 13:35 13:35 WBC 8.5 RBC 5.34 Hgb 14.0 Hct 43.7 MCV 81.9 D MCH 26.2 L MCHC 32.0 L RDW 20.1 H Plt Count 239 D MPV 9.0 Neut % (Auto) 65.1 Lymph % (Auto) 25.3 [place] % (Auto) 9.0 Eos % (Auto) 0.0 Baso % (Auto) 0.6 Neut # (Auto) 5.5 Lymph # (Auto) 2.1 [place] # (Auto) 0.8 Eos # (Auto) 0.0 Baso # (Auto) 0.0 PT 28.6 H INR 2.6 APTT 31.0 D-Dimer, Quantitative 5431 H Puncture Site pCO2 pO2 HCO3 ABG pH ABG Total CO2 ABG O2 Saturation ABG Base Excess Reyes Test ABG Potassium Glucose Lactate Liter Flow Crit Value Called To Crit Value Called By Crit Value Read Back Blood Gas Notified Time Sodium 138 Potassium 4.7 Chloride 104 Carbon Dioxide 15 L Anion Gap 23 H BUN 19 Creatinine 1.2 Est GFR ( Amer) > 60 Est GFR (Non-Af Amer) > 60 Random Glucose 99 Calcium 9.4 Total Bilirubin 3.7 H AST 67 H D ALT 50 Alkaline Phosphatase 63 Troponin I 0.0210 NT-Pro-B Natriuret Pep 6600 H Total Protein 7.3 Albumin 4.1 Globulin 3.2 Albumin/Globulin Ratio 1.3 Arterial Blood Potassium Urine Opiates Screen Urine Methadone Screen Ur Barbiturates Screen Ur Phencyclidine Scrn Ur Amphetamines Screen U Benzodiazepines Scrn U Oth Cocaine Metabols U Cannabinoids Screen Alcohol, Quantitative < 10 08/06/18 08/07/18 08/07/18 13:57 02:16 05:24 WBC 8.1 RBC 5.60 Hgb 14.6 Hct 46.5 MCV 85.5 D MCH 26.0 L MCHC 30.4 L RDW 20.9 H Plt Count 168 MPV 9.3 Neut % (Auto) 68.6 Lymph % (Auto) 24.7 [place] % (Auto) 6.5 Eos % (Auto) 0.0 Baso % (Auto) 0.2 Neut # (Auto) 5.5 Lymph # (Auto) 2.0 [place] # (Auto) 0.5 Eos # (Auto) 0.0 Baso # (Auto) 0.0 PT INR APTT > 400.0 H* D D-Dimer, Quantitative Puncture Site pCO2 pO2 HCO3 ABG pH ABG Total CO2 ABG O2 Saturation ABG Base Excess Reyes Test ABG Potassium Glucose Lactate Liter Flow Crit Value Called To Crit Value Called By Crit Value Read Back Blood Gas Notified Time Sodium Potassium Chloride Carbon Dioxide Anion Gap BUN Creatinine Est GFR ( Amer) Est GFR (Non-Af Amer) Random Glucose Calcium Total Bilirubin AST ALT Alkaline Phosphatase Troponin I NT-Pro-B Natriuret Pep Total Protein Albumin Globulin Albumin/Globulin Ratio Arterial Blood Potassium Urine Opiates Screen Negative Urine Methadone Screen Negative Ur Barbiturates Screen Negative Ur Phencyclidine Scrn Negative Ur Amphetamines Screen Negative U Benzodiazepines Scrn Negative U Oth Cocaine Metabols Negative U Cannabinoids Screen Negative Alcohol, Quantitative 08/07/18 08/07/18 08/07/18 06:40 09:36 09:37 WBC RBC Hgb Hct MCV MCH MCHC RDW Plt Count MPV Neut % (Auto) Lymph % (Auto) [place] % (Auto) Eos % (Auto) Baso % (Auto) Neut # (Auto) Lymph # (Auto) [place] # (Auto) Eos # (Auto) Baso # (Auto) PT INR APTT > 400.0 H* D-Dimer, Quantitative Puncture Site Rra pCO2 20 L pO2 152 H HCO3 10.3 L ABG pH 7.18 L* ABG Total CO2 8.1 L ABG O2 Saturation 100.0 H ABG Base Excess -18.8 L Reyes Test Po ABG Potassium 6.8 H* Glucose 213 H Lactate 11.7 H* Liter Flow 2.0 Crit Value Called To Moise greenwood Crit Value Called By Claudia Crit Value Read Back Y Blood Gas Notified Time 939 Sodium 138 129.0 L Potassium 5.6 H Chloride 107 99.0 Carbon Dioxide 9 L* D Anion Gap 26 H BUN 21 H Creatinine 1.7 H Est GFR ( Amer) 55 Est GFR (Non-Af Amer) 46 Random Glucose 51 L D Calcium 8.1 L Total Bilirubin 3.4 H AST 88 H D ALT 55 Alkaline Phosphatase 53 Troponin I NT-Pro-B Natriuret Pep Total Protein 6.4 Albumin 3.5 Globulin 2.9 Albumin/Globulin Ratio 1.2 Arterial Blood Potassium 6.8 H* Urine Opiates Screen Urine Methadone Screen Ur Barbiturates Screen Ur Phencyclidine Scrn Ur Amphetamines Screen U Benzodiazepines Scrn U Oth Cocaine Metabols U Cannabinoids Screen Alcohol, Quantitative Radiology Impressions: Radiology Impressions Chest X-Ray 08/06/18 13:26 IMPRESSION: Cardiomegaly. Hypoinflation. Chest CT 08/06/18 16:33 Impression: Cardiomegaly with reflux of contrast identified into the hepatic veins may be seen in the setting of elevated right heart pressures. Sub cm mediastinal adenopathy, nonspecific. Filling defect arising within the distal right main pulmonary artery involving the distal pulmonary artery branches. No evidence of saddle embolus. No discrete pulmonary embolus identified on the left. Small cluster of cystic foci and associated atelectasis at the right lower lobe. Focal ground-glass infiltrate within the left lower lobe. Focal patchy ground-glass opacity within the left lower lobe adjacent to the heart border. Partially imaged left perinephric stranding. Adrenal hypertrophy and associated inflammatory changes partially imaged. Partially imaged hepatomegaly. Findings discussed with Dr. Massey on 08/06/18 at 5:28 p.m.. EKG/Cardiology Studies: Cardiology / EKG Studies 08/06/18 12:33 ELECTROCARDIOGRAM Stat Comment: Mode Of Transportation: BED Reason For Exam: SOB 08/06/18 13:26 ELECTROCARDIOGRAM Stat Comment: Mode Of Transportation: BED Reason For Exam: SOB Review of Systems - Review of Systems All systems: reviewed and no additional remarkable complaints except Review of Systems: as per HPI Critical Care Progress Note - Nutrition Nutrition: Nutrition Category Date Time Status NPO Diet [DIET] Diets 08/07/18 Breakfast Active Assessment/Plan - Assessment and Plan (Free Text) Assessment: 38 yo male with pmhx of severe systolic and diastolic heart failure with edema, nonischemic cardiomyopathy, medication noncompliance, HTN, HLD presenting to ED with acute DVT/PE. Plan: Neuro -alert and oriented x3 Pulm -decreased breath sounds -CXR (08/07): no acute findings -Duplex LE: acute L leg DVT -CTA chest: Filling defect arising within distal R main pulmonary artery involving distal pulmonary artery branches. No evidence of saddle embolus. -on heparin gtt -ASA 81 mg PO daily -Surgery (Dr. Alvares) on board for IVC filter CV -HFrEF, EF 13% 2017, nonischemic cardiomyopathy -Cardiology (Dr. Mccarty) on board -pending repeat ECHO -lasix, lisinopril held given JENI, acidosis -c/w coreg, aldactone Heme -PTT >400, heparin gtt currently held -titrate down and resume per protocol Endo -BG 51 Am, pt NPO for IVC filter -D5W started @ 125 cc/hr GI -protonix 40 mg IVP daily Renal -BUN/Cr increase to 21/1.7 -ABG K 6.8 -elevated lactate -2 amp HCO3 50mEq given ID -no acute issues PPx, Diet, Disposition -DVT: heparin gtt -GI: protonix -Diet: NPO Case discussed with Dr. Moise Causey DO, PGY-1 <Rodo Phipps S - Last Filed: 08/07/18 17:10> CCU Subjective - Physician Review Critical Care Time Spent (in minutes): 60 CCU Objective - Vital Signs / Intake & Output Vital Signs (Last 4 hours): Vital Signs Pulse Resp BP Pulse Ox 08/07/18 17:05 122/90 08/07/18 17:03 95 H 17 100 08/07/18 17:00 96 H 16 100 08/07/18 16:54 95 H 18 114/90 100 08/07/18 16:50 95 H 15 100 08/07/18 16:40 95 H 15 100 08/07/18 16:30 96 H 26 H 100 08/07/18 16:29 95 H 18 131/90 100 08/07/18 16:20 95 H 16 100 08/07/18 16:14 96 H 16 127/96 H 100 08/07/18 16:10 96 H 14 08/07/18 16:00 97 H 16 126/91 H 100 08/07/18 15:50 97 H 15 100 08/07/18 15:44 95 H 18 118/83 100 08/07/18 15:40 97 H 20 100 08/07/18 15:30 97 H 20 128/87 100 08/07/18 15:20 99 H 18 100 08/07/18 15:10 96 H 22 100 08/07/18 15:00 101 H 21 100 08/07/18 14:50 99 H 20 100 08/07/18 14:43 100 H 17 119/95 H 100 08/07/18 14:40 98 H 19 100 08/07/18 14:30 98 H 21 100 08/07/18 14:20 97 H 14 08/07/18 14:10 95 H 17 100 08/07/18 14:00 95 H 24 100 08/07/18 13:50 91 H 18 100 08/07/18 13:42 91 H 20 102/72 100 08/07/18 13:40 91 H 25 H 100 08/07/18 13:30 90 18 100 08/07/18 13:20 91 H 16 100 08/07/18 13:10 91 H 23 100 Intake and Output (Last 8hrs): Intake & Output 08/07/18 08/07/18 08/07/18 06:59 14:59 22:59 Intake Total 208.7 875.9 715 Output Total 120 30 Balance 208.7 755.9 685 Weight 216 lb 0.848 oz Intake: IV 0 220 Intake, IV Amount 208.7 655.9 475 Right Forearm 114.7 141.2 100 left ac 94.0 514.7 375 Oral 240 Output: Urine 120 30 Urethral (Garza) 70 30 Urine, Voided 0 - Medications Active Medications: Active Medications Generic Name Dose Route Start Last Admin Trade Name Micki PRN Reason Stop Dose Admin Aspirin 81 mg 08/07/18 10:00 08/07/18 10:13 Aspirin Chewable PO 81 mg DAILY JACKELIN Administration Carvedilol 6.25 mg 08/06/18 18:00 08/07/18 10:13 Coreg PO 6.25 mg BID JACKELIN Administration Sodium Bicarbonate 150 meq/ 1,150 mls @ 125 mls/hr 08/07/18 09:30 08/07/18 10:41 Dextrose IV 125 mls/hr .[id number] JACKELIN Administration Pantoprazole Sodium 40 mg 08/07/18 10:00 08/07/18 10:13 Protonix Ec Tab PO 40 mg DAILY JACKELIN Administration Rosuvastatin Calcium 5 mg 08/06/18 18:00 08/06/18 19:06 Crestor PO 5 mg QPM JACKELIN Administration - Patient Studies Lab Studies: Lab Studies 08/07/18 08/07/18 08/07/18 Range/Units 14:37 12:16 12:15 WBC (4.8-10.8) K/uL RBC (4.40-5.90) Mil/uL Hgb (12.0-18.0) g/dL Hct (35.0-51.0) % MCV (80.0-94.0) fL MCH (27.0-31.0) pg MCHC (33.0-37.0) g/dL RDW (11.5-14.5) % Plt Count (130-400) K/uL MPV (7.2-11.7) fL Neut % (Auto) (50.0-75.0) % Lymph % (Auto) (20.0-40.0) % [place] % (Auto) (0.0-10.0) % Eos % (Auto) (0.0-4.0) % Baso % (Auto) (0.0-2.0) % Neut # (Auto) (1.8-7.0) K/uL Lymph # (Auto) (1.0-4.3) K/uL [place] # (Auto) (0.0-0.8) K/uL Eos # (Auto) (0.0-0.7) K/uL Baso # (Auto) (0.0-0.2) K/uL APTT (21-34) SECONDS Puncture Site pCO2 (35-45) mm/Hg pO2 41 (80-100) mm/Hg HCO3 (21-28) mmol/L ABG pH (7.35-7.45) ABG Total CO2 (22-28) mmol/L ABG O2 Saturation (95-98) % ABG Base Excess (-2.0-3.0) mmol/L Reyes Test ABG Potassium (3.6-5.2) mmol/L VBG pH 7.24 L (7.32-7.43) VBG pCO2 26 L (40-60) mmHg VBG HCO3 12.7 mmol/L VBG Total CO2 11.9 L (22-28) mmol/L VBG O2 Sat (Calc) 74.9 H (40-65) % VBG Base Excess -14.6 L (0.0-2.0) mmol/L VBG Potassium 6.6 H* (3.6-5.2) mmol/L Glucose 126 H (75-110) mg/dl Lactate 12.8 H* (0.7-2.1) mmol/L Liter Flow Crit Value Called To Veronica manager agriculture Crit Value Called By Claudia Crit Value Read Back Y Blood Gas Notified Time 1218 Sodium 138 131.0 L (132-148) mmol/L Potassium 6.6 H* (3.6-5.2) mmol/L Chloride 102 98.0 (98-107) mmol/L Carbon Dioxide 12 L (22-30) mmol/L Anion Gap 30 H (10-20) BUN 29 H (9-20) mg/dL Creatinine 2.3 H (0.8-1.5) mg/dL Est GFR ( Amer) 39 Est GFR (Non-Af Amer) 32 Random Glucose 122 H D (75-110) mg/dL Calcium 8.9 (8.6-10.4) mg/dl Total Bilirubin (0.2-1.3) mg/dL AST (17-59) U/L ALT (21-72) U/L Alkaline Phosphatase (38-126) U/L Total Creatine Kinase 816 H (55-170) U/L Troponin I 0.2930 H* (0.00-0.120) ng/mL Total Protein (6.3-8.3) g/dL Albumin (3.5-5.0) g/dL Globulin (2.2-3.9) gm/dL Albumin/Globulin Ratio (1.0-2.1) Arterial Blood Potassium (3.6-5.2) mmol/L Venous Blood Potassium 6.6 H* (3.6-5.2) mmol/L Ur Random Sodium < 5 mmol/L Ur Random Potassium 80.4 mmol/L 08/07/18 08/07/18 08/07/18 Range/Units 09:37 09:36 06:40 WBC (4.8-10.8) K/uL RBC (4.40-5.90) Mil/uL Hgb (12.0-18.0) g/dL Hct (35.0-51.0) % MCV (80.0-94.0) fL MCH (27.0-31.0) pg MCHC (33.0-37.0) g/dL RDW (11.5-14.5) % Plt Count (130-400) K/uL MPV (7.2-11.7) fL Neut % (Auto) (50.0-75.0) % Lymph % (Auto) (20.0-40.0) % [place] % (Auto) (0.0-10.0) % Eos % (Auto) (0.0-4.0) % Baso % (Auto) (0.0-2.0) % Neut # (Auto) (1.8-7.0) K/uL Lymph # (Auto) (1.0-4.3) K/uL [place] # (Auto) (0.0-0.8) K/uL Eos # (Auto) (0.0-0.7) K/uL Baso # (Auto) (0.0-0.2) K/uL APTT > 400.0 H* (21-34) SECONDS Puncture Site Rra pCO2 20 L (35-45) mm/Hg pO2 152 H (80-100) mm/Hg HCO3 10.3 L (21-28) mmol/L ABG pH 7.18 L* (7.35-7.45) ABG Total CO2 8.1 L (22-28) mmol/L ABG O2 Saturation 100.0 H (95-98) % ABG Base Excess -18.8 L (-2.0-3.0) mmol/L Reyes Test Po ABG Potassium 6.8 H* (3.6-5.2) mmol/L VBG pH (7.32-7.43) VBG pCO2 (40-60) mmHg VBG HCO3 mmol/L VBG Total CO2 (22-28) mmol/L VBG O2 Sat (Calc) (40-65) % VBG Base Excess (0.0-2.0) mmol/L VBG Potassium (3.6-5.2) mmol/L Glucose 213 H (75-110) mg/dl Lactate 11.7 H* (0.7-2.1) mmol/L Liter Flow 2.0 Crit Value Called To Moise greenwood Crit Value Called By Claudia Crit Value Read Back Y Blood Gas Notified Time 939 Sodium 129.0 L 138 (132-148) mmol/L Potassium 5.6 H (3.6-5.2) mmol/L Chloride 99.0 107 (98-107) mmol/L Carbon Dioxide 9 L* D (22-30) mmol/L Anion Gap 26 H (10-20) BUN 21 H (9-20) mg/dL Creatinine 1.7 H (0.8-1.5) mg/dL Est GFR ( Amer) 55 Est GFR (Non-Af Amer) 46 Random Glucose 51 L D (75-110) mg/dL Calcium 8.1 L (8.6-10.4) mg/dl Total Bilirubin 3.4 H (0.2-1.3) mg/dL AST 88 H D (17-59) U/L ALT 55 (21-72) U/L Alkaline Phosphatase 53 (38-126) U/L Total Creatine Kinase (55-170) U/L Troponin I (0.00-0.120) ng/mL Total Protein 6.4 (6.3-8.3) g/dL Albumin 3.5 (3.5-5.0) g/dL Globulin 2.9 (2.2-3.9) gm/dL Albumin/Globulin Ratio 1.2 (1.0-2.1) Arterial Blood Potassium 6.8 H* (3.6-5.2) mmol/L Venous Blood Potassium (3.6-5.2) mmol/L Ur Random Sodium mmol/L Ur Random Potassium mmol/L 08/07/18 08/07/18 Range/Units 05:24 02:16 WBC 8.1 (4.8-10.8) K/uL RBC 5.60 (4.40-5.90) Mil/uL Hgb 14.6 (12.0-18.0) g/dL Hct 46.5 (35.0-51.0) % MCV 85.5 D (80.0-94.0) fL MCH 26.0 L (27.0-31.0) pg MCHC 30.4 L (33.0-37.0) g/dL RDW 20.9 H (11.5-14.5) % Plt Count 168 (130-400) K/uL MPV 9.3 (7.2-11.7) fL Neut % (Auto) 68.6 (50.0-75.0) % Lymph % (Auto) 24.7 (20.0-40.0) % [place] % (Auto) 6.5 (0.0-10.0) % Eos % (Auto) 0.0 (0.0-4.0) % Baso % (Auto) 0.2 (0.0-2.0) % Neut # (Auto) 5.5 (1.8-7.0) K/uL Lymph # (Auto) 2.0 (1.0-4.3) K/uL [place] # (Auto) 0.5 (0.0-0.8) K/uL Eos # (Auto) 0.0 (0.0-0.7) K/uL Baso # (Auto) 0.0 (0.0-0.2) K/uL APTT > 400.0 H* D (21-34) SECONDS Puncture Site pCO2 (35-45) mm/Hg pO2 (80-100) mm/Hg HCO3 (21-28) mmol/L ABG pH (7.35-7.45) ABG Total CO2 (22-28) mmol/L ABG O2 Saturation (95-98) % ABG Base Excess (-2.0-3.0) mmol/L Reyes Test ABG Potassium (3.6-5.2) mmol/L VBG pH (7.32-7.43) VBG pCO2 (40-60) mmHg VBG HCO3 mmol/L VBG Total CO2 (22-28) mmol/L VBG O2 Sat (Calc) (40-65) % VBG Base Excess (0.0-2.0) mmol/L VBG Potassium (3.6-5.2) mmol/L Glucose (75-110) mg/dl Lactate (0.7-2.1) mmol/L Liter Flow Crit Value Called To Crit Value Called By Crit Value Read Back Blood Gas Notified Time Sodium (132-148) mmol/L Potassium (3.6-5.2) mmol/L Chloride (98-107) mmol/L Carbon Dioxide (22-30) mmol/L Anion Gap (10-20) BUN (9-20) mg/dL Creatinine (0.8-1.5) mg/dL Est GFR ( Amer) Est GFR (Non-Af Amer) Random Glucose (75-110) mg/dL Calcium (8.6-10.4) mg/dl Total Bilirubin (0.2-1.3) mg/dL AST (17-59) U/L ALT (21-72) U/L Alkaline Phosphatase (38-126) U/L Total Creatine Kinase (55-170) U/L Troponin I (0.00-0.120) ng/mL Total Protein (6.3-8.3) g/dL Albumin (3.5-5.0) g/dL Globulin (2.2-3.9) gm/dL Albumin/Globulin Ratio (1.0-2.1) Arterial Blood Potassium (3.6-5.2) mmol/L Venous Blood Potassium (3.6-5.2) mmol/L Ur Random Sodium mmol/L Ur Random Potassium mmol/L Laboratory Results - last 24 hr 08/07/18 08/07/18 08/07/18 02:16 05:24 06:40 WBC 8.1 RBC 5.60 Hgb 14.6 Hct 46.5 MCV 85.5 D MCH 26.0 L MCHC 30.4 L RDW 20.9 H Plt Count 168 MPV 9.3 Neut % (Auto) 68.6 Lymph % (Auto) 24.7 [place] % (Auto) 6.5 Eos % (Auto) 0.0 Baso % (Auto) 0.2 Neut # (Auto) 5.5 Lymph # (Auto) 2.0 [place] # (Auto) 0.5 Eos # (Auto) 0.0 Baso # (Auto) 0.0 APTT > 400.0 H* D Puncture Site pCO2 pO2 HCO3 ABG pH ABG Total CO2 ABG O2 Saturation ABG Base Excess Reyes Test ABG Potassium VBG pH VBG pCO2 VBG HCO3 VBG Total CO2 VBG O2 Sat (Calc) VBG Base Excess VBG Potassium Glucose Lactate Liter Flow Crit Value Called To Crit Value Called By Crit Value Read Back Blood Gas Notified Time Sodium 138 Potassium 5.6 H Chloride 107 Carbon Dioxide 9 L* D Anion Gap 26 H BUN 21 H Creatinine 1.7 H Est GFR ( Amer) 55 Est GFR (Non-Af Amer) 46 Random Glucose 51 L D Calcium 8.1 L Total Bilirubin 3.4 H AST 88 H D ALT 55 Alkaline Phosphatase 53 Total Creatine Kinase Troponin I Total Protein 6.4 Albumin 3.5 Globulin 2.9 Albumin/Globulin Ratio 1.2 Arterial Blood Potassium Venous Blood Potassium Ur Random Sodium Ur Random Potassium 08/07/18 08/07/18 08/07/18 09:36 09:37 12:15 WBC RBC Hgb Hct MCV MCH MCHC RDW Plt Count MPV Neut % (Auto) Lymph % (Auto) [place] % (Auto) Eos % (Auto) Baso % (Auto) Neut # (Auto) Lymph # (Auto) [place] # (Auto) Eos # (Auto) Baso # (Auto) APTT > 400.0 H* Puncture Site Rra pCO2 20 L pO2 152 H 41 HCO3 10.3 L ABG pH 7.18 L* ABG Total CO2 8.1 L ABG O2 Saturation 100.0 H ABG Base Excess -18.8 L Reyes Test Po ABG Potassium 6.8 H* VBG pH 7.24 L VBG pCO2 26 L VBG HCO3 12.7 VBG Total CO2 11.9 L VBG O2 Sat (Calc) 74.9 H VBG Base Excess -14.6 L VBG Potassium 6.6 H* Glucose 213 H 126 H Lactate 11.7 H* 12.8 H* Liter Flow 2.0 Crit Value Called To Moise Martin manager agriculture Crit Value Called By Claudia Taylor Crit Value Read Back Y Y Blood Gas Notified Time 939 1218 Sodium 129.0 L 131.0 L Potassium Chloride 99.0 98.0 Carbon Dioxide Anion Gap BUN Creatinine Est GFR ( Amer) Est GFR (Non-Af Amer) Random Glucose Calcium Total Bilirubin AST ALT Alkaline Phosphatase Total Creatine Kinase Troponin I Total Protein Albumin Globulin Albumin/Globulin Ratio Arterial Blood Potassium 6.8 H* Venous Blood Potassium 6.6 H* Ur Random Sodium Ur Random Potassium 08/07/18 08/07/18 12:16 14:37 WBC RBC Hgb Hct MCV MCH MCHC RDW Plt Count MPV Neut % (Auto) Lymph % (Auto) [place] % (Auto) Eos % (Auto) Baso % (Auto) Neut # (Auto) Lymph # (Auto) [place] # (Auto) Eos # (Auto) Baso # (Auto) APTT Puncture Site pCO2 pO2 HCO3 ABG pH ABG Total CO2 ABG O2 Saturation ABG Base Excess Reyes Test ABG Potassium VBG pH VBG pCO2 VBG HCO3 VBG Total CO2 VBG O2 Sat (Calc) VBG Base Excess VBG Potassium Glucose Lactate Liter Flow Crit Value Called To Crit Value Called By Crit Value Read Back Blood Gas Notified Time Sodium 138 Potassium 6.6 H* Chloride 102 Carbon Dioxide 12 L Anion Gap 30 H BUN 29 H Creatinine 2.3 H Est GFR ( Amer) 39 Est GFR (Non-Af Amer) 32 Random Glucose 122 H D Calcium 8.9 Total Bilirubin AST ALT Alkaline Phosphatase Total Creatine Kinase 816 H Troponin I 0.2930 H* Total Protein Albumin Globulin Albumin/Globulin Ratio Arterial Blood Potassium Venous Blood Potassium Ur Random Sodium < 5 Ur Random Potassium 80.4 Radiology Impressions: Radiology Impressions Chest CT 08/06/18 16:33 Impression: Cardiomegaly with reflux of contrast identified into the hepatic veins may be seen in the setting of elevated right heart pressures. Sub cm mediastinal adenopathy, nonspecific. Filling defect arising within the distal right main pulmonary artery involving the distal pulmonary artery branches. No evidence of saddle embolus. No discrete pulmonary embolus identified on the left. Small cluster of cystic foci and associated atelectasis at the right lower lobe. Focal ground-glass infiltrate within the left lower lobe. Focal patchy ground-glass opacity within the left lower lobe adjacent to the heart border. Partially imaged left perinephric stranding. Adrenal hypertrophy and associated inflammatory changes partially imaged. Partially imaged hepatomegaly. Findings discussed with Dr. Massey on 08/06/18 at 5:28 p.m.. Chest X-Ray 08/07/18 09:26 IMPRESSION: No active pulmonary disease. Severe cardiomegaly. Abdomen/Pelvis CT 08/07/18 12:24 IMPRESSION: 1. No acute abdominal or pelvic abnormality. 2. Persistent nephrograms in both kidneys suggestive of acute renal injury. 3. Small abdominal and pelvic ascites, significant perinephric inflammatory changes and stranding of the mesenteric fat. 4. Airspace disease in the right lung base may represent atelectasis or developing pneumonia. 5. Mild diffuse anasarca and small pericardial effusion. Critical Care Progress Note - Nutrition Nutrition: Nutrition Category Date Time Status Heart Healthy Diet [DIET] Diets 08/07/18 Dinner Active Attending/Attestation - Attestation I have personally seen and examined this patient.: Yes I have fully participated in the care of the patient.: Yes I have reviewed all pertinent clinical information: Yes Notes (Text): 08/07/18 17:09 Patient seen and examined in the intensive care unit. Case discussed with housestaff in the morning rounds. 38-year-old male admitted with DVT and pulmonary embolism with history of cardiomyopathy with low ejection fraction and noncompliance Nephrology consulted for acute kidney injury most likely secondary to contrast Echocardiogram consistent with thrombus in the ventricle Started on thrombolytic therapy Correct hyperkalemia Start heparin drip post thrombolytic therapy when PTT less than 2 times normal Possible dialysis Case discussed with family
--- NOTE | 2018-08-07 10:38 | RAD ---
Date of service: 08/07/2018 HISTORY: r/o CHF COMPARISON: 08/06/2018 FINDINGS: LUNGS: The lungs are well inflated and clear. PLEURA: No pleural effusions or pneumothorax. CARDIOVASCULAR: There is persistent severe cardiomegaly. No aortic atherosclerotic calcifications present. OSSEOUS STRUCTURES: Within normal limits for the patient's age. VISUALIZED UPPER ABDOMEN: Normal. OTHER FINDINGS: None. IMPRESSION: No active pulmonary disease. Severe cardiomegaly.
[2018-08-07] MEDS: Sodium Bicarbonate 8.4% 150 MEQ in Dextrose 5% In Water 1,000 ML IV SCH ×3 (10:41→20:15)
[2018-08-07 12:19] LABS: VENOUS BLOOD GAS BASE EXCESS -14.6 mmol/L (0.0-2.0); VENOUS BLOOD GAS PCO2 26 mmHg (40-60); VENOUS BLOOD GAS PO2 41 mm/Hg (30-55); VENOUS BLOOD PH 7.24 (7.32-7.43)
[2018-08-07 12:49] LABS: CALCIUM 8.9 mg/dl (8.6-10.4)
[2018-08-07 12:56] LABS: TROPONIN I 0.293 ng/mL (0.00-0.120)
[2018-08-07] MEDS ORDERED: (Novolin R) Insulin Human Regular 100 units/ml vial IVP ONE (13:17)
--- NOTE | 2018-08-07 13:36 | CT ---
Date of service: 08/07/2018 PROCEDURE: CT Abdomen and Pelvis without intravenous contrast HISTORY: Mid abdominal pain and tenderness COMPARISON: 04/27/2018 TECHNIQUE: CT scan of the abdomen and pelvis was performed without administration of intravenous contrast. Oral contrast was not administered. Coronal and sagittal reformatted images were obtained. Radiation dose: Total exam DLP = 1269.93 mGy-cm. This CT exam was performed using one or more of the following dose reduction techniques: Automated exposure control, adjustment of the mA and/or kV according to patient size, and/or use of iterative reconstruction technique. FINDINGS: LOWER THORAX: The visualized lung is clear. There is airspace disease in the left posterior lung base. Mild cardiomegaly and small pericardial effusion. LIVER: Mild hepatomegaly and fatty liver. No ductal dilatation. GALLBLADDER AND BILE DUCTS: Gallbladder is partially contracted. There is high attenuation in the gallbladder likely related to vicarious excretion of intravenous contrast administered the previous day. PANCREAS: Normal in size. No gross lesion or ductal dilatation. SPLEEN: Normal in size. ADRENALS: Normal in size. No discrete nodule. KIDNEYS AND URETERS: Both kidneys are normal in size. No hydronephrosis. There is symmetric intense enhancement in both kidneys consistent with a persistent nephrogram related to prior intravenous injection of contrast. There is a cortical scar in the right upper pole and both lower poles. There is significant perinephric fat stranding and stranding in the mesenteric fat. VASCULATURE: Normal in caliber. No aortic aneurysm. No aortic atherosclerotic calcification or mural plaque present. BOWEL: Evaluation of the bowel is limited in the absence of oral contrast. The small bowel loops are normal in caliber. The colon is normal in size. No bowel dilatation or wall thickening. No bowel obstruction. APPENDIX: Normal appendix. PERITONEUM: Small abdominal and pelvic ascites. No free air. LYMPH NODES: No enlarged lymph nodes. BLADDER: Indwelling Garza catheter with subsequent decompression of the urinary bladder. REPRODUCTIVE: The prostate gland is normal in size. BONES: No acute fracture. Within normal limits for the patient's age. OTHER FINDINGS: There is mild diffuse anasarca. IMPRESSION: 1. No acute abdominal or pelvic abnormality. 2. Persistent nephrograms in both kidneys suggestive of acute renal injury. 3. Small abdominal and pelvic ascites, significant perinephric inflammatory changes and stranding of the mesenteric fat. 4. Airspace disease in the right lung base may represent atelectasis or developing pneumonia. 5. Mild diffuse anasarca and small pericardial effusion.
--- NOTE | 2018-08-07 15:08 | CP.PCM.PCO ---
Physician Communication Note - Physician Communication Note Physician Communication Note: Hyperkalemia, poss. need for HD. IVCF postponed to 08/08 if patient stable
--- NOTE | 2018-08-07 16:53 | CP.PCM.PN ---
<Jeromy Duncan - Last Filed: 08/07/18 18:35> Subjective - Date & Time of Evaluation Date of Evaluation: 08/07/18 Time of Evaluation: 10:00 - Subjective Subjective: Patient was seen and examined at bedside. Patient is comfortable with no acute complains. Patient is currently NPO for IVC filter placement. Objective - Vital Signs/Intake and Output Vital Signs (last 24 hours): Temp Pulse Resp BP Pulse Ox 98.1 F 97 H 16 126/91 H 100 08/07/18 12:00 08/07/18 16:00 08/07/18 16:00 08/07/18 16:00 08/07/18 16:00 Intake and Output: 08/07/18 08/07/18 06:59 18:59 Intake Total 261.5 1225.9 Output Total 200 150 Balance 61.5 1075.9 - Medications Medications: Current Medications Aspirin (Aspirin Chewable) 81 mg PO DAILY [facility] Last Admin: 08/07/18 10:13 Dose: 81 mg Carvedilol (Coreg) 6.25 mg PO BID [facility] Last Admin: 08/07/18 10:13 Dose: 6.25 mg Sodium Bicarbonate 150 meq/ (Dextrose) 1,150 mls @ 125 mls/hr IV .[id number] [facility] Last Admin: 08/07/18 10:41 Dose: 125 mls/hr Alteplase, Recombinant 100 mg/ (IV SUPPLIES) 100 mls @ 50 mls/hr IV ONCE ONE Stop: 08/07/18 16:59 Last Admin: 08/07/18 15:09 Dose: 50 mls/hr Pantoprazole Sodium (Protonix Ec Tab) 40 mg PO DAILY [facility] Last Admin: 08/07/18 10:13 Dose: 40 mg Rosuvastatin Calcium (Crestor) 5 mg PO QPM [facility] Last Admin: 08/06/18 19:06 Dose: 5 mg - Labs Labs: 08/07/18 05:24 08/07/18 12:16 PT 28.6 SECONDS (9.7-12.2) H 08/06/18 13:35 INR 2.6 08/06/18 13:35 APTT > 400.0 SECONDS (21-34) H* 08/07/18 09:37 - Constitutional Appears: Non-toxic, No Acute Distress - Head Exam Head Exam: ATRAUMATIC, NORMOCEPHALIC - Eye Exam Eye Exam: EOMI, Normal appearance Pupil Exam: PERRL - ENT Exam ENT Exam: Mucous Membranes Moist - Neck Exam Neck Exam: Normal Inspection. absent: Lymphadenopathy - Respiratory Exam Respiratory Exam: Decreased Breath Sounds, NORMAL BREATHING PATTERN. absent: Accessory Muscle Use, Rales, Rhonchi, Wheezes, Respiratory Distress - Cardiovascular Exam Cardiovascular Exam: REGULAR RHYTHM, +S1, +S2 - GI/Abdominal Exam GI & Abdominal Exam: Soft, Normal Bowel Sounds. absent: Distended, Firm, Guarding, Rigid, Rebound - Extremities Exam Extremities Exam: Calf Tenderness, Pedal Edema (1+) - Neurological Exam Neurological Exam: Alert, Awake, Oriented x3 - Psychiatric Exam Psychiatric exam: Normal Affect, Normal Mood Assessment and Plan - Assessment and Plan (Free Text) Plan: A: 38 yo male with a PMH of nonischemic cardiomyopathy, HFrEF; EF 13%, HTN, HLD, and medication non-compliance who is being treated for acute DVT/ PE. Echo today found thrombus in RV and LV. 1.Thrombus in RV and LV 1. HFrEF; EF 13% 2. DVT L lower extremity/ PE R main Pulm. Art. 3. JENI P: Echo showed thrombus in RV and LV. Likely two separate processes. tPa was initiated. Consider bubble study to r/o ventricular shunt once patient stable IVC filter placement w/ Dr. Alvares scheduled today. Patient is not a good candidate for heart transplant or life vest due to non compliance and lack of insurance. Patient should be started on anti-coagulation therapy. Warfarin vs. Xarelto Vs. Eliquis; concern with Hx of noncompliance and ability to pay for therapy. Recommend establishment care in [facility]. Continue ASA 81 mg PO daily Continue Heparin 25,000 units IV continue coreg 6.25 mg BID Continue crestor 5 mg PO daily Hold Lasix and Hussein due to JENI Case discussed with Dr. Lul Duncan PGY2 <Alfie Mccarty - Last Filed: 08/08/18 06:31> Objective - Vital Signs/Intake and Output Vital Signs (last 24 hours): Temp Pulse Resp BP Pulse Ox 97.4 F L 96 H 13 93/67 L 100 08/08/18 00:00 08/08/18 04:10 08/08/18 04:10 08/08/18 03:34 08/08/18 04:10 Intake and Output: 08/07/18 08/08/18 18:59 06:59 Intake Total 1835.9 1040.0 Output Total 190 280 Balance 1645.9 760.0 - Medications Medications: Current Medications Aspirin (Aspirin Chewable) 81 mg PO DAILY [facility] Last Admin: 08/07/18 10:13 Dose: 81 mg Carvedilol (Coreg) 6.25 mg PO BID [facility] Last Admin: 08/07/18 17:48 Dose: 6.25 mg Sodium Bicarbonate 150 meq/ (Dextrose) 1,150 mls @ 80 mls/hr IV .[id number] [facility] Last Admin: 08/08/18 06:09 Dose: 80 mls/hr Heparin Sodium/Sodium Chloride (Heparin 35451 Units/250ml 1/2 Normal Saline) 25,000 units in 250 mls @ 11.76 mls/hr IV .[id number] PRN; Protocol PRN Reason: PROTOCOL Last Titration: 08/08/18 04:45 Dose: 9 units/kg/hr, 8.82 mls/hr Pantoprazole Sodium (Protonix Ec Tab) 40 mg PO DAILY [facility] Last Admin: 08/07/18 10:13 Dose: 40 mg Rosuvastatin Calcium (Crestor) 5 mg PO QPM [facility] Last Admin: 08/07/18 17:51 Dose: 5 mg - Labs Labs: 08/07/18 05:24 08/07/18 18:59 PT 42.7 SECONDS (9.7-12.2) H D 08/08/18 02:49 INR 3.9 H* D 08/08/18 02:49 APTT > 400.0 SECONDS (21-34) H* D 08/08/18 02:49 Assessment and Plan - Assessment and Plan (Free Text) Plan: Patient seen and evaluated. Received tPA for Clot in transit in RA and LV thrombus Now on Heparin IV Will transit him to either Coumadin or NOACS Will establish care in [facility] Heart failure management Consider referring him to heart transplant center as out patient
--- NOTE | 2018-08-07 17:13 | CP.PCM.HP ---
Present on Admission - Present on Admission Any Indicators Present on Admission: No Past Patient History - Infectious Disease Hx of Infectious Diseases: None - Past Medical History & Family History Past Medical History?: Yes Past Family History: Reviewed and not pertinent - Past Social History Smoking Status: Former Smoker Alcohol: None Drugs: Denies Home Situation {Lives}: With Family - CARDIAC Hx Congestive Heart Failure: Yes Hx Hypertension: Yes Hx Pacemaker: Yes - PULMONARY Hx Respiratory Disorders: Yes Hx Pulmonary Edema: Yes - NEUROLOGICAL Hx Neurological Disorder: No - HEENT Hx HEENT Problems: No - RENAL Hx Chronic Kidney Disease: No - ENDOCRINE/METABOLIC Hx Endocrine Disorders: No - HEMATOLOGICAL/ONCOLOGICAL Hx Blood Disorders: No - INTEGUMENTARY Hx Dermatological Problems: No - MUSCULOSKELETAL/RHEUMATOLOGICAL Hx Musculoskeletal Disorders: No Hx Falls: No - GASTROINTESTINAL Hx Gall Bladder Disease: Yes (choleystitis) - GENITOURINARY/GYNECOLOGICAL Hx Genitourinary Disorders: No - PSYCHIATRIC Hx Substance Use: No - SURGICAL HISTORY Hx Surgeries: No - ANESTHESIA Hx Anesthesia: Yes Hx Anesthesia Reactions: No Hx Malignant Hyperthermia: No Has any member of the family had a problem w/ anesthesia?: No Meds Allergies/Adverse Reactions: Allergies Allergy/AdvReac Type Severity Reaction Status Date / Time No Known Allergies Allergy Verified 02/08/18 09:55 Results - Vital Signs Recent Vital Signs: Last Vital Signs Temp 98.1 F 08/07/18 12:00 Pulse 95 H 08/07/18 17:03 Resp 17 08/07/18 17:03 BP 122/90 08/07/18 17:05 Pulse Ox 100 08/07/18 17:03 - Labs Result Diagrams: 08/07/18 05:24 08/07/18 12:16 Labs: Laboratory Results - last 24 hr 08/07/18 08/07/18 08/07/18 02:16 05:24 06:40 WBC 8.1 RBC 5.60 Hgb 14.6 Hct 46.5 MCV 85.5 D MCH 26.0 L MCHC 30.4 L RDW 20.9 H Plt Count 168 MPV 9.3 Neut % (Auto) 68.6 Lymph % (Auto) 24.7 [place] % (Auto) 6.5 Eos % (Auto) 0.0 Baso % (Auto) 0.2 Neut # (Auto) 5.5 Lymph # (Auto) 2.0 [place] # (Auto) 0.5 Eos # (Auto) 0.0 Baso # (Auto) 0.0 APTT > 400.0 H* D Puncture Site pCO2 pO2 HCO3 ABG pH ABG Total CO2 ABG O2 Saturation ABG Base Excess Reyes Test ABG Potassium VBG pH VBG pCO2 VBG HCO3 VBG Total CO2 VBG O2 Sat (Calc) VBG Base Excess VBG Potassium Glucose Lactate Liter Flow Crit Value Called To Crit Value Called By Crit Value Read Back Blood Gas Notified Time Sodium 138 Potassium 5.6 H Chloride 107 Carbon Dioxide 9 L* D Anion Gap 26 H BUN 21 H Creatinine 1.7 H Est GFR ( Amer) 55 Est GFR (Non-Af Amer) 46 Random Glucose 51 L D Calcium 8.1 L Total Bilirubin 3.4 H AST 88 H D ALT 55 Alkaline Phosphatase 53 Total Creatine Kinase Troponin I Total Protein 6.4 Albumin 3.5 Globulin 2.9 Albumin/Globulin Ratio 1.2 Arterial Blood Potassium Venous Blood Potassium Ur Random Sodium Ur Random Potassium 08/07/18 08/07/18 08/07/18 09:36 09:37 12:15 WBC RBC Hgb Hct MCV MCH MCHC RDW Plt Count MPV Neut % (Auto) Lymph % (Auto) [place] % (Auto) Eos % (Auto) Baso % (Auto) Neut # (Auto) Lymph # (Auto) [place] # (Auto) Eos # (Auto) Baso # (Auto) APTT > 400.0 H* Puncture Site Rra pCO2 20 L pO2 152 H 41 HCO3 10.3 L ABG pH 7.18 L* ABG Total CO2 8.1 L ABG O2 Saturation 100.0 H ABG Base Excess -18.8 L Reyes Test Po ABG Potassium 6.8 H* VBG pH 7.24 L VBG pCO2 26 L VBG HCO3 12.7 VBG Total CO2 11.9 L VBG O2 Sat (Calc) 74.9 H VBG Base Excess -14.6 L VBG Potassium 6.6 H* Glucose 213 H 126 H Lactate 11.7 H* 12.8 H* Liter Flow 2.0 Crit Value Called To Moise Martin agricultural service worker Crit Value Called By Claudia Taylor Crit Value Read Back Y Y Blood Gas Notified Time 939 1218 Sodium 129.0 L 131.0 L Potassium Chloride 99.0 98.0 Carbon Dioxide Anion Gap BUN Creatinine Est GFR ( Amer) Est GFR (Non-Af Amer) Random Glucose Calcium Total Bilirubin AST ALT Alkaline Phosphatase Total Creatine Kinase Troponin I Total Protein Albumin Globulin Albumin/Globulin Ratio Arterial Blood Potassium 6.8 H* Venous Blood Potassium 6.6 H* Ur Random Sodium Ur Random Potassium 08/07/18 08/07/18 12:16 14:37 WBC RBC Hgb Hct MCV MCH MCHC RDW Plt Count MPV Neut % (Auto) Lymph % (Auto) [place] % (Auto) Eos % (Auto) Baso % (Auto) Neut # (Auto) Lymph # (Auto) [place] # (Auto) Eos # (Auto) Baso # (Auto) APTT Puncture Site pCO2 pO2 HCO3 ABG pH ABG Total CO2 ABG O2 Saturation ABG Base Excess Reyes Test ABG Potassium VBG pH VBG pCO2 VBG HCO3 VBG Total CO2 VBG O2 Sat (Calc) VBG Base Excess VBG Potassium Glucose Lactate Liter Flow Crit Value Called To Crit Value Called By Crit Value Read Back Blood Gas Notified Time Sodium 138 Potassium 6.6 H* Chloride 102 Carbon Dioxide 12 L Anion Gap 30 H BUN 29 H Creatinine 2.3 H Est GFR ( Amer) 39 Est GFR (Non-Af Amer) 32 Random Glucose 122 H D Calcium 8.9 Total Bilirubin AST ALT Alkaline Phosphatase Total Creatine Kinase 816 H Troponin I 0.2930 H* Total Protein Albumin Globulin Albumin/Globulin Ratio Arterial Blood Potassium Venous Blood Potassium Ur Random Sodium < 5 Ur Random Potassium 80.4
[2018-08-07 19:21] LABS: CALCIUM 8.2 mg/dl (8.6-10.4)
[2018-08-07 19:30] LABS: TROPONIN I 0.412 ng/mL (0.00-0.120)
[2018-08-07] MEDS ORDERED: Heparin25000 units/250ml 1/2NS 25,000 UNITS/250 ML BAG IV PRN (19:57)
--- NOTE | 2018-08-08 00:57 | CARD ---
APPROVED REPORT Date of service: 08/06/2018 EKG Measurement Heart [id number] <Conclusion> Sinus tachycardia Right atrial enlargement Anterior infarct, age undetermined Abnormal ECG
--- NOTE | 2018-08-08 03:01 | CON ---
DATE: 08/07/2018 NEPHROLOGY CONSULTATION LOCATION: [facility]. HISTORY OF PRESENT ILLNESS: The patient is a 38-year-old male with past medical history of nonischemic cardiomyopathy with ejection fraction of 13%, hypertension, hyperlipidemia, presented to ED with increased dyspnea and bilateral leg swelling. Nephrology being consulted for acute renal failure. The patient reports dyspnea ongoing for several months. Also with increased bilateral lower leg edema. Symptoms worsened lately with the patient not being able to leave his house due to the symptoms. The patient ran out of medications two weeks ago, unable to nut picker refills. The patient otherwise is also reporting pleuritic chest pain. Also with intermittent diarrhea. Not eating well. The patient has CT angio done yesterday that revealed pulmonary emboli involving distal pulmonary artery branches, no evidence of saddle embolus. This morning, the patient noted to have become severely acidotic with low normal blood pressure at times. Echo done showing thrombi in left and right ventricles. REVIEW OF SYSTEMS: CONSTITUTIONAL: Decreased p.o. intake. Some chills. HEENT: No dysphagia. RESPIRATORY: Dyspnea as mentioned above. CARDIOVASCULAR: Pleuritic chest pain. GASTROINTESTINAL: The patient with some abdominal discomfort. GENITOURINARY: Admits to decreased urination over the last several days. No dysuria. MUSCULOSKELETAL: Denies taking any NSAIDs for pain. PSYCHIATRIC: Denies any depression or anxiety. NEUROLOGIC: Reports feeling of numbness in his feet. PHYSICAL EXAMINATION: VITAL SIGNS: Blood pressure 104/83, heart rate 87, respirations 20, temperature 98.1, and O2 saturation 100% on 2 L O2 via nasal cannula. GENERAL: The patient is mildly tachypneic, able to converse coherently in full sentences. HEENT: Dry tongue. Dry lips. RESPIRATORY: Lungs are clear to auscultation bilaterally. No rales. No rhonchi. No wheezes. CARDIOVASCULAR: Heart sounds S1 and S2 normal. No murmurs. No gallops. No rubs. No elevation of JVD. GASTROINTESTINAL: Abdomen is soft, mildly tender, mildly distended. GENITOURINARY: No bladder distention. EXTREMITIES: 1+ bilateral lower leg edema. Hands and feet are very cool to touch. SKIN: Cool distal lower extremities. No obvious cyanosis. NEUROLOGIC: No resting tremor. PSYCHIATRIC: Normal mood. Normal affect. LABORATORY DATA: CBC: WBC 8.1, hemoglobin 14.6, hematocrit 46.5, and platelets 168. Chemistry panel: Sodium 138, potassium 6.6, chloride 102, bicarbonate 12, BUN 29, creatinine 2.3, glucose 122, calcium 8.9. ABG done this morning, pH of 7.18, pCO2 of 20, and pO2 of 152. Chest x-ray directly visualized, lungs clear. ASSESSMENT AND PLAN: 1. Acute renal failure, acute tubular necrosis secondary to contrast nephropathy in the setting of severe cardiomyopathy. Oligoanuric renal failure with severe hyperkalemia and severe metabolic acidosis. The patient was being planned for urgent emergent dialysis; however due to finding of multiple thrombi, it was decided the patient should have tissue plasminogen activator systemically infused to take precedence over treating hyperkalemia with hemodialysis as dialysis catheter placement is relatively contraindicated and may lead to severe bleeding after infusion of tissue plasminogen activator. a. We will continue to maximize all medical managements to control hyperkalemia and correct metabolic acidosis. b. Giving bicarbonate drip with D5W with 150 mEq sodium bicarbonate running at 125 mL per hour. c. Kayexalate 30 g given. d. Insulin and D50 given. e. We will repeat basic metabolic panel this evening and will need to decide at that time whether dialysis catheter placement needs to be done. 2. Shock, etiology not completely clear, but in the setting of multiple thrombi, less likely due to hypoperfusion. With severe lactic acidosis. Transaminases not significantly elevated though total bilirubin is elevated indicating that the patient is having liver dysfunction as well. We will continue bicarbonate drip as above. 3. Nonischemic cardiomyopathy with severely depressed systolic function. If the patient becomes volume overloaded, will need to be intubated; otherwise, have no choice but to continue with intravenous fluids as mentioned above. Critical care time spent evaluating the patient, managing electrolytes, and discussion with critical care team over 80 minutes. Moses Purcell MD
[2018-08-08 03:34] LABS: PROTHROMBIN TIME 42.7 SECONDS (9.7-12.2)
[2018-08-08 03:35] LABS: INR 3.9; PARTIAL THROMBOPLASTIN TIME > 400.0 SECONDS (21-34)
[2018-08-08] MEDS: Sodium Bicarbonate 8.4% 150 MEQ in Dextrose 5% In Water 1,000 ML IV SCH ×2 (06:09→13:00)
--- NOTE | 2018-08-08 06:21 | CP.PCM.PN ---
Subjective - Date & Time of Evaluation Date of Evaluation: 08/08/18 Time of Evaluation: 06:21 - Subjective Subjective: dict Objective - Vital Signs/Intake and Output Vital Signs (last 24 hours): Temp Pulse Resp BP Pulse Ox 97.4 F L 96 H 13 93/67 L 100 08/08/18 00:00 08/08/18 04:10 08/08/18 04:10 08/08/18 03:34 08/08/18 04:10 Intake and Output: 08/07/18 08/08/18 18:59 06:59 Intake Total 1835.9 1040.0 Output Total 190 280 Balance 1645.9 760.0 - Medications Medications: Current Medications Aspirin (Aspirin Chewable) 81 mg PO DAILY [facility] Last Admin: 08/07/18 10:13 Dose: 81 mg Carvedilol (Coreg) 6.25 mg PO BID [facility] Last Admin: 08/07/18 17:48 Dose: 6.25 mg Sodium Bicarbonate 150 meq/ (Dextrose) 1,150 mls @ 80 mls/hr IV .[id number] [facility] Last Admin: 08/08/18 06:09 Dose: 80 mls/hr Heparin Sodium/Sodium Chloride (Heparin 84007 Units/250ml 1/2 Normal Saline) 25,000 units in 250 mls @ 11.76 mls/hr IV .[id number] PRN; Protocol PRN Reason: PROTOCOL Last Titration: 08/08/18 04:45 Dose: 9 units/kg/hr, 8.82 mls/hr Pantoprazole Sodium (Protonix Ec Tab) 40 mg PO DAILY [facility] Last Admin: 08/07/18 10:13 Dose: 40 mg Rosuvastatin Calcium (Crestor) 5 mg PO QPM [facility] Last Admin: 08/07/18 17:51 Dose: 5 mg - Labs Labs: 08/07/18 05:24 08/07/18 18:59 PT 42.7 SECONDS (9.7-12.2) H D 08/08/18 02:49 INR 3.9 H* D 08/08/18 02:49 APTT > 400.0 SECONDS (21-34) H* D 08/08/18 02:49
[2018-08-08 06:54] LABS: BASO % 0.1 % (0.0-2.0); EOS % 0.1 % (0.0-4.0); LYMPH # 1.4 K/uL (1.0-4.3); LYMPH % 11.1 % (20.0-40.0); MEAN CELL VOLUME 80.3 fL (80.0-94.0); MEAN CORPUSCULAR HEMOGLOBIN 25.5 pg (27.0-31.0); MEAN CORPUSCULAR HGB CONC 31.8 g/dL (33.0-37.0); MEAN PLATELET VOLUME 9.4 fL (7.2-11.7); MONO # 0.8 K/uL (0.0-0.8); MONO % 6.3 % (0.0-10.0); NEUT # 10.3 K/uL (1.8-7.0); NEUT % 82.4 % (50.0-75.0); NRBC % 0.4 % (0.0-2.0); RBC 4.88 Mil/uL (4.40-5.90); RED CELL DISTRIBUTION WIDTH 19.6 % (11.5-14.5); WHITE BLOOD COUNT 12.5 K/uL (4.8-10.8)
[2018-08-08 07:01] LABS: HEMOGLOBIN 12.5 g/dL (12.0-18.0)
[2018-08-08 07:22] LABS: INR 3.7; PROTHROMBIN TIME 40.1 SECONDS (9.7-12.2)
--- NOTE | 2018-08-08 07:38 | PN ---
DATE: 08/08/2018 SUBJECTIVE: The patient is still dyspneic. He is orthopneic. He has difficulty walking. He is weak. He is on heparin drip. He is afebrile. He is short of breath at rest. He has been seen by Cardiology. His creatinine is elevated. His PTT is 400 with an INR of 3.9. PHYSICAL EXAMINATION: VITAL SIGNS: Blood pressure 112/90, pulse 96, respiratory rate 22, temperature 98. LUNGS: Bilateral crepitations. CARDIOVASCULAR SYSTEM: S1 and S2, regular. No heave. No thrill. ABDOMEN: Soft. ASSESSMENT: 1. Acute exacerbation of congestive heart failure. 2. Acute kidney injury. 3. Chronic kidney disease. PLAN: Continue current medications, diuretics, intake/output, daily body weight. The patient is on intravenous Bumex . The patient will be followed up closely. Aris Rivas MD
[2018-08-08 07:39] LABS: ALB/GLOB RATIO 1.3 (1.0-2.1); ALBUMIN 3.4 g/dL (3.5-5.0)
--- NOTE | 2018-08-08 08:56 | RAD ---
Chest x-ray single frontal view HISTORY: Shortness of breath. COMPARISON: 08/07/2018. FINDINGS: Small left pleural effusion. Mild venous congestion. Patchy increased consolidative changes at the left lung base. Nodularity in the left hilar/suprahilar region may represent vessels on end. Right hilar prominence. Cardiomegaly. Degenerative changes in the spine. IMPRESSION: Small left pleural effusion. Mild venous congestion. Patchy increased consolidative changes at the left lung base. Nodularity in the left hilar/suprahilar region may represent vessels on end. Right hilar prominence. Cardiomegaly.
[2018-08-08] MEDS: Pantoprazole 40 mg EC Tab PO SCH (09:31)
--- NOTE | 2018-08-08 10:26 | HP ---
CHIEF COMPLAINT: Shortness of breath. HISTORY OF PRESENT ILLNESS: This is a 38-year-old -[place] male who is known case of congestive heart failure with low LV ejection fraction of 13%. 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 The patient has been noncompliant with his diet, medication, and his cardiology followup. The patient is supposed to have a LifeVest. The patient has not been following. The patient for the last few days has been having difficulty walking. He has dyspnea at rest, dyspnea on exertion, orthopnea, PND. He also has leg swelling; left leg is bigger than the right leg. He could not walk. He could not work. He came to emergency room. He denies any chest pain. He denies any nausea, vomiting, or diarrhea. He denies any history of polyuria, polydipsia, polyphagia. He had nocturia. He denies any history of hematuria or pyuria. He denies any history of sneezing, itchy eyes, itchy nose. The patient is currently on heparin drip in ICU, tachycardic, tachypneic, and distress. ALLERGIES: UNKNOWN. PAST MEDICAL HISTORY: He has CHF, cholecystitis, hypertension, hyperlipidemia. PAST SURGICAL HISTORY: He has AICD pacemaker. SOCIAL HISTORY: He is ex-alcoholic. FAMILY HISTORY: Negative for congestive heart failure, syncope in the family. MEDICATION: Current medications at home are; he is on Aldactone, Crestor, lisinopril, Lasix, Coreg, aspirin, Ventolin HFA. PHYSICAL EXAMINATION: GENERAL: A young male within distress, with shortness of breath. He is sitting. He cannot lay down flat. VITAL SIGNS: Blood pressure 117/78, pulse 94, respiratory rate 16, and temperature 98. SKIN: No bruises. No purpura. HEENT: Atraumatic and normocephalic. Negative pallor. Negative jaundice. Extraocular movements are intact. NECK: Supple. Positive JVD. Negative thyromegaly. Negative carotid bruits. CHEST WALL: Bilateral symmetrical expansion. LUNGS: Bilaterally basal rales. CARDIOVASCULAR SYSTEM: PMI not localized. S1, S2, plus S3 positive. ABDOMEN: Soft and nontender. Bowel sound are positive. RECTAL: No masses. No bleed. EXTREMITIES: No clubbing, cyanosis, or edema. CENTRAL NERVOUS SYSTEM: Awake, alert, and oriented x3. Cranial nerves II through XII are normal. Power 5/5 x4. Plantars are downgoing. ASSESSMENT: 1. Pulmonary embolism. 2. Congestive heart failure, rule out exacerbation. 3. Hypertension. PLAN: Admit. Detailed orders are written. Seen and examined. Aris Rivas MD
[2018-08-08 10:44] LABS: HEMOGLOBIN 12.6 g/dL (12.0-18.0); MEAN CELL VOLUME 79.9 fL (80.0-94.0); MEAN CORPUSCULAR HEMOGLOBIN 25.9 pg (27.0-31.0); MEAN CORPUSCULAR HGB CONC 32.4 g/dL (33.0-37.0); MEAN PLATELET VOLUME 9.2 fL (7.2-11.7); RBC 4.86 Mil/uL (4.40-5.90); RED CELL DISTRIBUTION WIDTH 19.3 % (11.5-14.5); WHITE BLOOD COUNT 13.3 K/uL (4.8-10.8)
[2018-08-08 10:57] LABS: INR 3.3; PROTHROMBIN TIME 36.5 SECONDS (9.7-12.2)
--- NOTE | 2018-08-08 11:31 | CP.CCUPN ---
<PadillaErvin - Last Filed: 08/08/18 11:46> CCU Subjective - Physician Review Subjective (Free Text): 08/08/18 11:20 PGY-1 Critical Care Progress Note for Dr. Leo Seen and examined at bedside this AM, c/o worsening sob. BUN/Cr continuing to increase, Nephrology on case for JENI likely contrast- induced nephropathy K corrected with kayexalate, on bicarb drip @ 80cc/hr ECHO yest demonstrated large thrombus in LV, EF 5% s/p tPA yesterday 15:09 heparin drip held this AM due to PTT 400s INR 3.9 pt now presenting with elevated transaminitis; crestor held Plan for IVC filter this afternoon and HD catheter CCU Objective - Vital Signs / Intake & Output Vital Signs (Last 4 hours): Vital Signs Temp Pulse Resp BP Pulse Ox 08/08/18 10:34 95 H 14 100 08/08/18 10:00 95 H 18 105/71 100 08/08/18 09:00 97 H 11 L 108/63 100 08/08/18 08:00 97.6 F 92 H 15 107/66 100 Intake and Output (Last 8hrs): Intake & Output 08/07/18 08/08/18 08/08/18 22:59 06:59 14:59 Intake Total 1360.4 817.2 378.8 Output Total 220 190 480 Balance 1140.4 627.2 -101.2 Weight 99 kg Intake: IV 0 50 Intake, IV Amount 1000.4 817.2 328.8 Right Forearm 135.4 97.2 8.8 left ac 865 720 320 Oral 360 Output: Urine 220 190 480 Urethral (Garza) 220 190 480 - Physical Exam Head: Positive for: Atraumatic, Normocephalic Pupils: Positive for: PERRL Extroacular Muscles: Positive for: EOMI Conjunctiva: Positive for: Normal Mouth: Positive for: Moist Mucous Membranes Respiratory/Chest: Positive for: Decreased Breath Sounds, Rales Cardiovascular: Positive for: Regular Rate and Rhythm, Normal S1, S2 Abdomen: Positive for: Normal Bowel Sounds. Negative for: Tenderness, Distention, Rebound, Guarding Back: Positive for: Normal Inspection Upper Extremity: Positive for: Normal Inspection. Negative for: Cyanosis, Edema Lower Extremity: Positive for: Normal Inspection, NORMAL PULSES. Negative for: Edema, CALF TENDERNESS Neurological: Positive for: CN II-XII Intact, Speech Normal Skin: Positive for: Dry, Normal Color, Cold (cool distal extremities b/l ) Psychiatric: Positive for: Alert, Oriented x 3 - Medications Active Medications: Active Medications Generic Name Dose Route Start Last Admin Trade Name Freq PRN Reason Stop Dose Admin Aspirin 81 mg 08/07/18 10:00 08/08/18 09:31 Aspirin Chewable PO Not Given DAILY [facility] Carvedilol 6.25 mg 08/06/18 18:00 08/08/18 09:31 Coreg PO Not Given BID JACKELIN Folic Acid 1 mg 08/09/18 10:00 Folic Acid PO DAILY [facility] Sodium Bicarbonate 150 meq/ 1,150 mls @ 80 mls/hr 08/07/18 19:32 08/08/18 06:09 Dextrose IV 80 mls/hr .[id number] JACKELIN Administration Heparin Sodium/Sodium Chloride 25,000 units in 250 mls @ 11.76 mls/hr 08/07/18 19:57 08/08/18 07:30 Heparin 26878 Units/250ml 1/2 Normal Saline IV 0 units/kg/hr .[id number] PRN 0 mls/hr PROTOCOL Titration Protocol 12 UNITS/KG/HR Pantoprazole Sodium 40 mg 08/07/18 10:00 08/08/18 09:31 Protonix Ec Tab PO Not Given DAILY [facility] Rosuvastatin Calcium 5 mg 08/06/18 18:00 08/07/18 17:51 Crestor PO 5 mg QPM JACKELIN Administration Thiamine HCl 100 mg 08/09/18 10:00 Vitamin B1 Tab PO DAILY [facility] - Patient Studies Lab Studies: Lab Studies 08/08/18 08/08/18 08/08/18 Range/Units 10:32 10:32 06:48 WBC 13.3 H (4.8-10.8) K/uL RBC 4.86 (4.40-5.90) Mil/uL Hgb 12.6 (12.0-18.0) g/dL Hct 38.8 (35.0-51.0) % MCV 79.9 L (80.0-94.0) fL MCH 25.9 L (27.0-31.0) pg MCHC 32.4 L (33.0-37.0) g/dL RDW 19.3 H (11.5-14.5) % Plt Count 206 (130-400) K/uL MPV 9.2 (7.2-11.7) fL Neut % (Auto) (50.0-75.0) % Lymph % (Auto) (20.0-40.0) % [place] % (Auto) (0.0-10.0) % Eos % (Auto) (0.0-4.0) % Baso % (Auto) (0.0-2.0) % Neut # (Auto) (1.8-7.0) K/uL Lymph # (Auto) (1.0-4.3) K/uL [place] # (Auto) (0.0-0.8) K/uL Eos # (Auto) (0.0-0.7) K/uL Baso # (Auto) (0.0-0.2) K/uL PT 36.5 H 40.1 H (9.7-12.2) SECONDS INR 3.3 H* 3.7 H* APTT 44.0 H D (21-34) SECONDS pO2 (30-55) mm/Hg VBG pH (7.32-7.43) VBG pCO2 (40-60) mmHg VBG HCO3 mmol/L VBG Total CO2 (22-28) mmol/L VBG O2 Sat (Calc) (40-65) % VBG Base Excess (0.0-2.0) mmol/L VBG Potassium (3.6-5.2) mmol/L Sodium (132-148) mmol/l Chloride (98-107) mmol/L Glucose (75-110) mg/dl Lactate (0.7-2.1) mmol/L Crit Value Called To Crit Value Called By Crit Value Read Back Blood Gas Notified Time Potassium (3.6-5.2) mmol/L Carbon Dioxide (22-30) mmol/L Anion Gap (10-20) BUN (9-20) mg/dL Creatinine (0.8-1.5) mg/dL Est GFR ( Amer) Est GFR (Non-Af Amer) Random Glucose (75-110) mg/dL Calcium (8.6-10.4) mg/dl Phosphorus (2.5-4.5) mg/dL Magnesium (1.6-2.3) mg/dL Total Bilirubin (0.2-1.3) mg/dL AST (17-59) U/L ALT (21-72) U/L Alkaline Phosphatase (38-126) U/L Total Creatine Kinase (55-170) U/L Troponin I (0.00-0.120) ng/mL Total Protein (6.3-8.3) g/dL Albumin (3.5-5.0) g/dL Globulin (2.2-3.9) gm/dL Albumin/Globulin Ratio (1.0-2.1) Venous Blood Potassium (3.6-5.2) mmol/L Ur Random Sodium mmol/L Ur Random Potassium mmol/L 08/08/18 08/08/18 08/08/18 Range/Units 06:47 06:46 02:49 WBC 12.5 H D (4.8-10.8) K/uL RBC 4.88 (4.40-5.90) Mil/uL Hgb 12.5 D (12.0-18.0) g/dL Hct 39.2 (35.0-51.0) % MCV 80.3 D (80.0-94.0) fL MCH 25.5 L (27.0-31.0) pg MCHC 31.8 L (33.0-37.0) g/dL RDW 19.6 H (11.5-14.5) % Plt Count 190 (130-400) K/uL MPV 9.4 (7.2-11.7) fL Neut % (Auto) 82.4 H (50.0-75.0) % Lymph % (Auto) 11.1 L (20.0-40.0) % [place] % (Auto) 6.3 (0.0-10.0) % Eos % (Auto) 0.1 (0.0-4.0) % Baso % (Auto) 0.1 (0.0-2.0) % Neut # (Auto) 10.3 H (1.8-7.0) K/uL Lymph # (Auto) 1.4 (1.0-4.3) K/uL [place] # (Auto) 0.8 (0.0-0.8) K/uL Eos # (Auto) 0.0 (0.0-0.7) K/uL Baso # (Auto) 0.0 (0.0-0.2) K/uL PT 42.7 H D (9.7-12.2) SECONDS INR 3.9 H* D APTT > 400.0 H* D (21-34) SECONDS pO2 (30-55) mm/Hg VBG pH (7.32-7.43) VBG pCO2 (40-60) mmHg VBG HCO3 mmol/L VBG Total CO2 (22-28) mmol/L VBG O2 Sat (Calc) (40-65) % VBG Base Excess (0.0-2.0) mmol/L VBG Potassium (3.6-5.2) mmol/L Sodium 135 (132-148) mmol/l Chloride 94 L (98-107) mmol/L Glucose (75-110) mg/dl Lactate (0.7-2.1) mmol/L Crit Value Called To Crit Value Called By Crit Value Read Back Blood Gas Notified Time Potassium 4.3 (3.6-5.2) mmol/L Carbon Dioxide 23 (22-30) mmol/L Anion Gap 22 H (10-20) BUN 45 H (9-20) mg/dL Creatinine 2.8 H (0.8-1.5) mg/dL Est GFR ( Amer) 31 Est GFR (Non-Af Amer) 26 Random Glucose 147 H D (75-110) mg/dL Calcium 8.0 L (8.6-10.4) mg/dl Phosphorus 5.2 H (2.5-4.5) mg/dL Magnesium 2.3 (1.6-2.3) mg/dL Total Bilirubin 3.5 H (0.2-1.3) mg/dL AST 857 H D (17-59) U/L ALT 336 H D (21-72) U/L Alkaline Phosphatase 49 (38-126) U/L Total Creatine Kinase (55-170) U/L Troponin I (0.00-0.120) ng/mL Total Protein 6.1 L (6.3-8.3) g/dL Albumin 3.4 L (3.5-5.0) g/dL Globulin 2.7 (2.2-3.9) gm/dL Albumin/Globulin Ratio 1.3 (1.0-2.1) Venous Blood Potassium (3.6-5.2) mmol/L Ur Random Sodium mmol/L Ur Random Potassium mmol/L 08/07/18 08/07/18 08/07/18 Range/Units 18:59 18:59 14:37 WBC (4.8-10.8) K/uL RBC (4.40-5.90) Mil/uL Hgb (12.0-18.0) g/dL Hct (35.0-51.0) % MCV (80.0-94.0) fL MCH (27.0-31.0) pg MCHC (33.0-37.0) g/dL RDW (11.5-14.5) % Plt Count (130-400) K/uL MPV (7.2-11.7) fL Neut % (Auto) (50.0-75.0) % Lymph % (Auto) (20.0-40.0) % [place] % (Auto) (0.0-10.0) % Eos % (Auto) (0.0-4.0) % Baso % (Auto) (0.0-2.0) % Neut # (Auto) (1.8-7.0) K/uL Lymph # (Auto) (1.0-4.3) K/uL [place] # (Auto) (0.0-0.8) K/uL Eos # (Auto) (0.0-0.7) K/uL Baso # (Auto) (0.0-0.2) K/uL PT (9.7-12.2) SECONDS INR APTT 57.0 H D (21-34) SECONDS pO2 (30-55) mm/Hg VBG pH (7.32-7.43) VBG pCO2 (40-60) mmHg VBG HCO3 mmol/L VBG Total CO2 (22-28) mmol/L VBG O2 Sat (Calc) (40-65) % VBG Base Excess (0.0-2.0) mmol/L VBG Potassium (3.6-5.2) mmol/L Sodium 134 (132-148) mmol/l Chloride 98 (98-107) mmol/L Glucose (75-110) mg/dl Lactate (0.7-2.1) mmol/L Crit Value Called To Crit Value Called By Crit Value Read Back Blood Gas Notified Time Potassium 4.6 (3.6-5.2) mmol/L Carbon Dioxide 17 L (22-30) mmol/L Anion Gap 24 H (10-20) BUN 37 H (9-20) mg/dL Creatinine 2.4 H (0.8-1.5) mg/dL Est GFR ( Amer) 37 Est GFR (Non-Af Amer) 31 Random Glucose 266 H D (75-110) mg/dL Calcium 8.2 L (8.6-10.4) mg/dl Phosphorus (2.5-4.5) mg/dL Magnesium (1.6-2.3) mg/dL Total Bilirubin (0.2-1.3) mg/dL AST (17-59) U/L ALT (21-72) U/L Alkaline Phosphatase (38-126) U/L Total Creatine Kinase (55-170) U/L Troponin I 0.4120 H* (0.00-0.120) ng/mL Total Protein (6.3-8.3) g/dL Albumin (3.5-5.0) g/dL Globulin (2.2-3.9) gm/dL Albumin/Globulin Ratio (1.0-2.1) Venous Blood Potassium (3.6-5.2) mmol/L Ur Random Sodium < 5 mmol/L Ur Random Potassium 80.4 mmol/L 08/07/18 08/07/18 Range/Units 12:16 12:15 WBC (4.8-10.8) K/uL RBC (4.40-5.90) Mil/uL Hgb (12.0-18.0) g/dL Hct (35.0-51.0) % MCV (80.0-94.0) fL MCH (27.0-31.0) pg MCHC (33.0-37.0) g/dL RDW (11.5-14.5) % Plt Count (130-400) K/uL MPV (7.2-11.7) fL Neut % (Auto) (50.0-75.0) % Lymph % (Auto) (20.0-40.0) % [place] % (Auto) (0.0-10.0) % Eos % (Auto) (0.0-4.0) % Baso % (Auto) (0.0-2.0) % Neut # (Auto) (1.8-7.0) K/uL Lymph # (Auto) (1.0-4.3) K/uL [place] # (Auto) (0.0-0.8) K/uL Eos # (Auto) (0.0-0.7) K/uL Baso # (Auto) (0.0-0.2) K/uL PT (9.7-12.2) SECONDS INR APTT (21-34) SECONDS pO2 41 (30-55) mm/Hg VBG pH 7.24 L (7.32-7.43) VBG pCO2 26 L (40-60) mmHg VBG HCO3 12.7 mmol/L VBG Total CO2 11.9 L (22-28) mmol/L VBG O2 Sat (Calc) 74.9 H (40-65) % VBG Base Excess -14.6 L (0.0-2.0) mmol/L VBG Potassium 6.6 H* (3.6-5.2) mmol/L Sodium 138 131.0 L (132-148) mmol/l Chloride 102 98.0 (98-107) mmol/L Glucose 126 H (75-110) mg/dl Lactate 12.8 H* (0.7-2.1) mmol/L Crit Value Called To Veronica manager nicu Crit Value Called By Claudia Crit Value Read Back Y Blood Gas Notified Time 1218 Potassium 6.6 H* (3.6-5.2) mmol/L Carbon Dioxide 12 L (22-30) mmol/L Anion Gap 30 H (10-20) BUN 29 H (9-20) mg/dL Creatinine 2.3 H (0.8-1.5) mg/dL Est GFR ( Amer) 39 Est GFR (Non-Af Amer) 32 Random Glucose 122 H D (75-110) mg/dL Calcium 8.9 (8.6-10.4) mg/dl Phosphorus (2.5-4.5) mg/dL Magnesium (1.6-2.3) mg/dL Total Bilirubin (0.2-1.3) mg/dL AST (17-59) U/L ALT (21-72) U/L Alkaline Phosphatase (38-126) U/L Total Creatine Kinase 816 H (55-170) U/L Troponin I 0.2930 H* (0.00-0.120) ng/mL Total Protein (6.3-8.3) g/dL Albumin (3.5-5.0) g/dL Globulin (2.2-3.9) gm/dL Albumin/Globulin Ratio (1.0-2.1) Venous Blood Potassium 6.6 H* (3.6-5.2) mmol/L Ur Random Sodium mmol/L Ur Random Potassium mmol/L Laboratory Results - last 24 hr 08/07/18 08/07/18 08/07/18 12:15 12:16 14:37 WBC RBC Hgb Hct MCV MCH MCHC RDW Plt Count MPV Neut % (Auto) Lymph % (Auto) [place] % (Auto) Eos % (Auto) Baso % (Auto) Neut # (Auto) Lymph # (Auto) [place] # (Auto) Eos # (Auto) Baso # (Auto) PT INR APTT pO2 41 VBG pH 7.24 L VBG pCO2 26 L VBG HCO3 12.7 VBG Total CO2 11.9 L VBG O2 Sat (Calc) 74.9 H VBG Base Excess -14.6 L VBG Potassium 6.6 H* Sodium 131.0 L 138 Chloride 98.0 102 Glucose 126 H Lactate 12.8 H* Crit Value Called To Veronica manager nicu Crit Value Called By Claudia Crit Value Read Back Y Blood Gas Notified Time 1218 Potassium 6.6 H* Carbon Dioxide 12 L Anion Gap 30 H BUN 29 H Creatinine 2.3 H Est GFR ( Amer) 39 Est GFR (Non-Af Amer) 32 Random Glucose 122 H D Calcium 8.9 Phosphorus Magnesium Total Bilirubin AST ALT Alkaline Phosphatase Total Creatine Kinase 816 H Troponin I 0.2930 H* Total Protein Albumin Globulin Albumin/Globulin Ratio Venous Blood Potassium 6.6 H* Ur Random Sodium < 5 Ur Random Potassium 80.4 08/07/18 08/07/18 08/08/18 18:59 18:59 02:49 WBC RBC Hgb Hct MCV MCH MCHC RDW Plt Count MPV Neut % (Auto) Lymph % (Auto) [place] % (Auto) Eos % (Auto) Baso % (Auto) Neut # (Auto) Lymph # (Auto) [place] # (Auto) Eos # (Auto) Baso # (Auto) PT 42.7 H D INR 3.9 H* D APTT 57.0 H D > 400.0 H* D pO2 VBG pH VBG pCO2 VBG HCO3 VBG Total CO2 VBG O2 Sat (Calc) VBG Base Excess VBG Potassium Sodium 134 Chloride 98 Glucose Lactate Crit Value Called To Crit Value Called By Crit Value Read Back Blood Gas Notified Time Potassium 4.6 Carbon Dioxide 17 L Anion Gap 24 H BUN 37 H Creatinine 2.4 H Est GFR ( Amer) 37 Est GFR (Non-Af Amer) 31 Random Glucose 266 H D Calcium 8.2 L Phosphorus Magnesium Total Bilirubin AST ALT Alkaline Phosphatase Total Creatine Kinase Troponin I 0.4120 H* Total Protein Albumin Globulin Albumin/Globulin Ratio Venous Blood Potassium Ur Random Sodium Ur Random Potassium 08/08/18 08/08/18 08/08/18 06:46 06:47 06:48 WBC 12.5 H D RBC 4.88 Hgb 12.5 D Hct 39.2 MCV 80.3 D MCH 25.5 L MCHC 31.8 L RDW 19.6 H Plt Count 190 MPV 9.4 Neut % (Auto) 82.4 H Lymph % (Auto) 11.1 L [place] % (Auto) 6.3 Eos % (Auto) 0.1 Baso % (Auto) 0.1 Neut # (Auto) 10.3 H Lymph # (Auto) 1.4 [place] # (Auto) 0.8 Eos # (Auto) 0.0 Baso # (Auto) 0.0 PT 40.1 H INR 3.7 H* APTT pO2 VBG pH VBG pCO2 VBG HCO3 VBG Total CO2 VBG O2 Sat (Calc) VBG Base Excess VBG Potassium Sodium 135 Chloride 94 L Glucose Lactate Crit Value Called To Crit Value Called By Crit Value Read Back Blood Gas Notified Time Potassium 4.3 Carbon Dioxide 23 Anion Gap 22 H BUN 45 H Creatinine 2.8 H Est GFR ( Amer) 31 Est GFR (Non-Af Amer) 26 Random Glucose 147 H D Calcium 8.0 L Phosphorus 5.2 H Magnesium 2.3 Total Bilirubin 3.5 H AST 857 H D ALT 336 H D Alkaline Phosphatase 49 Total Creatine Kinase Troponin I Total Protein 6.1 L Albumin 3.4 L Globulin 2.7 Albumin/Globulin Ratio 1.3 Venous Blood Potassium Ur Random Sodium Ur Random Potassium 08/08/18 08/08/18 10:32 10:32 WBC 13.3 H RBC 4.86 Hgb 12.6 Hct 38.8 MCV 79.9 L MCH 25.9 L MCHC 32.4 L RDW 19.3 H Plt Count 206 MPV 9.2 Neut % (Auto) Lymph % (Auto) [place] % (Auto) Eos % (Auto) Baso % (Auto) Neut # (Auto) Lymph # (Auto) [place] # (Auto) Eos # (Auto) Baso # (Auto) PT 36.5 H INR 3.3 H* APTT 44.0 H D pO2 VBG pH VBG pCO2 VBG HCO3 VBG Total CO2 VBG O2 Sat (Calc) VBG Base Excess VBG Potassium Sodium Chloride Glucose Lactate Crit Value Called To Crit Value Called By Crit Value Read Back Blood Gas Notified Time Potassium Carbon Dioxide Anion Gap BUN Creatinine Est GFR ( Amer) Est GFR (Non-Af Amer) Random Glucose Calcium Phosphorus Magnesium Total Bilirubin AST ALT Alkaline Phosphatase Total Creatine Kinase Troponin I Total Protein Albumin Globulin Albumin/Globulin Ratio Venous Blood Potassium Ur Random Sodium Ur Random Potassium Radiology Impressions: Radiology Impressions Chest X-Ray 08/07/18 09:26 IMPRESSION: No active pulmonary disease. Severe cardiomegaly. Abdomen/Pelvis CT 08/07/18 12:24 IMPRESSION: 1. No acute abdominal or pelvic abnormality. 2. Persistent nephrograms in both kidneys suggestive of acute renal injury. 3. Small abdominal and pelvic ascites, significant perinephric inflammatory changes and stranding of the mesenteric fat. 4. Airspace disease in the right lung base may represent atelectasis or developing pneumonia. 5. Mild diffuse anasarca and small pericardial effusion. Chest X-Ray 08/08/18 08:02 IMPRESSION: Small left pleural effusion. Mild venous congestion. Patchy increased consolidative changes at the left lung base. Nodularity in the left hilar/suprahilar region may represent vessels on end. Right hilar prominence. Cardiomegaly. EKG/Cardiology Studies: Cardiology / EKG Studies 08/08/18 10:48 ELECTROCARDIOGRAM Stat Comment: Mode Of Transportation: BED Reason For Exam: To see if change in [facility] Review of Systems - Review of Systems All systems: reviewed and no additional remarkable complaints except Review of Systems: as per [facility] Critical Care Progress Note - Nutrition Nutrition: Nutrition Category Date Time Status NPO Diet [DIET] Diets 08/08/18 Breakfast Active Assessment/Plan - Assessment and Plan (Free Text) Assessment: 38 yo male with pmhx of severe systolic and diastolic heart betzy lure with edema, nonischemic cardiomyopathy, medication noncompliance, HTN, HLD presenting to ED with acute DVT/PE. Plan: Neuro -alert and oriented x3 Pulm -decreased breath sounds -CXR (08/07): no acute findings -Duplex LE: acute L leg DVT -CTA chest: Filling defect arising within distal R main pulmonary artery involv ing distal pulmonary artery branches. No evidence of saddle embolus. -heparin gtt -ASA 81 mg PO daily -Surgery (Dr. Alvares) on board for IVC filter CV -HFrEF, nonischemic cardiomyopathy -EF 5% on repeat ECHO -Cardiology (Dr. Mccarty) on board -large thrombus noted in LV, s/p alteplase -lasix, lisinopril held given JENI, acidosis -c/w coreg, aldactone -plan for IVC filter this PM Heme -PTT >400, heparin gtt currently held -titrate down and resume per protocol Endo -BG 51 Am, pt NPO for IVC filter -D5W started @ 80 cc/hr GI -protonix 40 mg IVP daily Renal -BUN/Cr increase to 45/2.8 -Nephrology on case -acute tubular necrosis 2/2 contrast induced nephropathy -plan for HD catheter today ID -no acute issues PPx, Diet, Disposition -DVT: heparin gtt -GI: protonix -Diet: NPO Case discussed with Dr. Ahmet Causey DO, PGY-1 <Haile Leo - Last Filed: 08/08/18 16:18> CCU Objective - Vital Signs / Intake & Output Vital Signs (Last 4 hours): Vital Signs Temp Pulse Resp BP Pulse Ox 08/08/18 15:55 97.7 F 94 H 19 130/73 100 08/08/18 15:25 96 H 18 120/79 100 08/08/18 15:00 96 H 13 100 08/08/18 14:55 92 H 18 109/76 100 08/08/18 14:40 92 H 19 106/72 100 08/08/18 14:25 94 H 15 106/73 100 08/08/18 14:15 96 H 19 100 08/08/18 14:10 98 F 96 H 19 117/73 100 08/08/18 13:00 97 H 17 110/78 98 08/08/18 12:35 96 H 13 98 Intake and Output (Last 8hrs): Intake & Output 08/08/18 08/08/18 08/08/18 06:59 14:59 22:59 Intake Total 817.2 728.8 88.8 Output Total 190 1060 240 Balance 627.2 -331.2 -151.2 Weight 218 lb 4.122 oz Intake: IV 0 160 Intake, IV Amount 817.2 568.8 88.8 Right Forearm 97.2 8.8 8.8 left ac 720 560 80 Output: Urine 190 1060 240 Urethral (Garza) 190 1060 240 - Medications Active Medications: Active Medications Generic Name Dose Route Start Last Admin Trade Name Freq PRN Reason Stop Dose Admin Aspirin 81 mg 08/07/18 10:00 08/08/18 09:31 Aspirin Chewable PO Not Given DAILY [facility] Carvedilol 6.25 mg 08/06/18 18:00 08/08/18 09:31 Coreg PO Not Given BID [facility] Folic Acid 1 mg 08/09/18 10:00 Folic Acid PO DAILY [facility] Sodium Bicarbonate 150 meq/ 1,150 mls @ 40 mls/hr 08/08/18 12:45 08/08/18 13:00 Dextrose IV Not Given .Q24H JACKELIN Heparin Sodium/Sodium Chloride 25,000 units in 250 mls @ 8.91 mls/hr 08/08/18 15:59 Heparin 79266 Units/250ml 1/2 Normal Saline IV .Q24H PRN ADJUST RATE PER PROTOCOL Protocol 9 UNITS/KG/HR Pantoprazole Sodium 40 mg 08/07/18 10:00 08/08/18 09:31 Protonix Ec Tab PO Not Given DAILY [facility] Rosuvastatin Calcium 5 mg 08/06/18 18:00 08/07/18 17:51 Crestor PO 5 mg QPM JACKELIN Administration Thiamine HCl 100 mg 08/09/18 10:00 Vitamin B1 Tab PO DAILY JACKELIN - Patient Studies Lab Studies: Microbiology Studies 08/07/18 14:37 Blood Culture - Preliminary Blood NO GROWTH AFTER 24 HOURS 08/07/18 14:37 Blood Culture - Preliminary Blood NO GROWTH AFTER 24 HOURS 08/06/18 21:45 MRSA Culture (Admit) - Final Nose MRSA NOT DETECTED Lab Studies 08/08/18 08/08/18 08/08/18 Range/Units 10:32 10:32 06:48 WBC 13.3 H (4.8-10.8) K/uL RBC 4.86 (4.40-5.90) Mil/uL Hgb 12.6 (12.0-18.0) g/dL Hct 38.8 (35.0-51.0) % MCV 79.9 L (80.0-94.0) fL MCH 25.9 L (27.0-31.0) pg MCHC 32.4 L (33.0-37.0) g/dL RDW 19.3 H (11.5-14.5) % Plt Count 206 (130-400) K/uL MPV 9.2 (7.2-11.7) fL Neut % (Auto) (50.0-75.0) % Lymph % (Auto) (20.0-40.0) % [place] % (Auto) (0.0-10.0) % Eos % (Auto) (0.0-4.0) % Baso % (Auto) (0.0-2.0) % Neut # (Auto) (1.8-7.0) K/uL Lymph # (Auto) (1.0-4.3) K/uL [place] # (Auto) (0.0-0.8) K/uL Eos # (Auto) (0.0-0.7) K/uL Baso # (Auto) (0.0-0.2) K/uL PT 36.5 H 40.1 H (9.7-12.2) SECONDS INR 3.3 H* 3.7 H* APTT 44.0 H D (21-34) SECONDS Sodium (132-148) mmol/L Potassium (3.6-5.2) mmol/L Chloride (98-107) mmol/L Carbon Dioxide (22-30) mmol/L Anion Gap (10-20) BUN (9-20) mg/dL Creatinine (0.8-1.5) mg/dL Est GFR ( Amer) Est GFR (Non-Af Amer) Random Glucose (75-110) mg/dL Calcium (8.6-10.4) mg/dl Phosphorus (2.5-4.5) mg/dL Magnesium (1.6-2.3) mg/dL Total Bilirubin (0.2-1.3) mg/dL AST (17-59) U/L ALT (21-72) U/L Alkaline Phosphatase (38-126) U/L Troponin I (0.00-0.120) ng/mL Total Protein (6.3-8.3) g/dL Albumin (3.5-5.0) g/dL Globulin (2.2-3.9) gm/dL Albumin/Globulin Ratio (1.0-2.1) 08/08/18 08/08/18 08/08/18 Range/Units 06:47 06:46 02:49 WBC 12.5 H D (4.8-10.8) K/uL RBC 4.88 (4.40-5.90) Mil/uL Hgb 12.5 D (12.0-18.0) g/dL Hct 39.2 (35.0-51.0) % MCV 80.3 D (80.0-94.0) fL MCH 25.5 L (27.0-31.0) pg MCHC 31.8 L (33.0-37.0) g/dL RDW 19.6 H (11.5-14.5) % Plt Count 190 (130-400) K/uL MPV 9.4 (7.2-11.7) fL Neut % (Auto) 82.4 H (50.0-75.0) % Lymph % (Auto) 11.1 L (20.0-40.0) % [place] % (Auto) 6.3 (0.0-10.0) % Eos % (Auto) 0.1 (0.0-4.0) % Baso % (Auto) 0.1 (0.0-2.0) % Neut # (Auto) 10.3 H (1.8-7.0) K/uL Lymph # (Auto) 1.4 (1.0-4.3) K/uL [place] # (Auto) 0.8 (0.0-0.8) K/uL Eos # (Auto) 0.0 (0.0-0.7) K/uL Baso # (Auto) 0.0 (0.0-0.2) K/uL PT 42.7 H D (9.7-12.2) SECONDS INR 3.9 H* D APTT > 400.0 H* D (21-34) SECONDS Sodium 135 (132-148) mmol/L Potassium 4.3 (3.6-5.2) mmol/L Chloride 94 L (98-107) mmol/L Carbon Dioxide 23 (22-30) mmol/L Anion Gap 22 H (10-20) BUN 45 H (9-20) mg/dL Creatinine 2.8 H (0.8-1.5) mg/dL Est GFR ( Amer) 31 Est GFR (Non-Af Amer) 26 Random Glucose 147 H D (75-110) mg/dL Calcium 8.0 L (8.6-10.4) mg/dl Phosphorus 5.2 H (2.5-4.5) mg/dL Magnesium 2.3 (1.6-2.3) mg/dL Total Bilirubin 3.5 H (0.2-1.3) mg/dL AST 857 H D (17-59) U/L ALT 336 H D (21-72) U/L Alkaline Phosphatase 49 (38-126) U/L Troponin I (0.00-0.120) ng/mL Total Protein 6.1 L (6.3-8.3) g/dL Albumin 3.4 L (3.5-5.0) g/dL Globulin 2.7 (2.2-3.9) gm/dL Albumin/Globulin Ratio 1.3 (1.0-2.1) 08/07/18 08/07/18 Range/Units 18:59 18:59 WBC (4.8-10.8) K/uL RBC (4.40-5.90) Mil/uL Hgb (12.0-18.0) g/dL Hct (35.0-51.0) % MCV (80.0-94.0) fL MCH (27.0-31.0) pg MCHC (33.0-37.0) g/dL RDW (11.5-14.5) % Plt Count (130-400) K/uL MPV (7.2-11.7) fL Neut % (Auto) (50.0-75.0) % Lymph % (Auto) (20.0-40.0) % [place] % (Auto) (0.0-10.0) % Eos % (Auto) (0.0-4.0) % Baso % (Auto) (0.0-2.0) % Neut # (Auto) (1.8-7.0) K/uL Lymph # (Auto) (1.0-4.3) K/uL [place] # (Auto) (0.0-0.8) K/uL Eos # (Auto) (0.0-0.7) K/uL Baso # (Auto) (0.0-0.2) K/uL PT (9.7-12.2) SECONDS INR APTT 57.0 H D (21-34) SECONDS Sodium 134 (132-148) mmol/L Potassium 4.6 (3.6-5.2) mmol/L Chloride 98 (98-107) mmol/L Carbon Dioxide 17 L (22-30) mmol/L Anion Gap 24 H (10-20) BUN 37 H (9-20) mg/dL Creatinine 2.4 H (0.8-1.5) mg/dL Est GFR ( Amer) 37 Est GFR (Non-Af Amer) 31 Random Glucose 266 H D (75-110) mg/dL Calcium 8.2 L (8.6-10.4) mg/dl Phosphorus (2.5-4.5) mg/dL Magnesium (1.6-2.3) mg/dL Total Bilirubin (0.2-1.3) mg/dL AST (17-59) U/L ALT (21-72) U/L Alkaline Phosphatase (38-126) U/L Troponin I 0.4120 H* (0.00-0.120) ng/mL Total Protein (6.3-8.3) g/dL Albumin (3.5-5.0) g/dL Globulin (2.2-3.9) gm/dL Albumin/Globulin Ratio (1.0-2.1) Laboratory Results - last 24 hr 08/07/18 08/07/18 08/08/18 18:59 18:59 02:49 WBC RBC Hgb Hct MCV MCH MCHC RDW Plt Count MPV Neut % (Auto) Lymph % (Auto) [place] % (Auto) Eos % (Auto) Baso % (Auto) Neut # (Auto) Lymph # (Auto) [place] # (Auto) Eos # (Auto) Baso # (Auto) PT 42.7 H D INR 3.9 H* D APTT 57.0 H D > 400.0 H* D Sodium 134 Potassium 4.6 Chloride 98 Carbon Dioxide 17 L Anion Gap 24 H BUN 37 H Creatinine 2.4 H Est GFR ( Amer) 37 Est GFR (Non-Af Amer) 31 Random Glucose 266 H D Calcium 8.2 L Phosphorus Magnesium Total Bilirubin AST ALT Alkaline Phosphatase Troponin I 0.4120 H* Total Protein Albumin Globulin Albumin/Globulin Ratio 08/08/18 08/08/18 08/08/18 06:46 06:47 06:48 WBC 12.5 H D RBC 4.88 Hgb 12.5 D Hct 39.2 MCV 80.3 D MCH 25.5 L MCHC 31.8 L RDW 19.6 H Plt Count 190 MPV 9.4 Neut % (Auto) 82.4 H Lymph % (Auto) 11.1 L [place] % (Auto) 6.3 Eos % (Auto) 0.1 Baso % (Auto) 0.1 Neut # (Auto) 10.3 H Lymph # (Auto) 1.4 [place] # (Auto) 0.8 Eos # (Auto) 0.0 Baso # (Auto) 0.0 PT 40.1 H INR 3.7 H* APTT Sodium 135 Potassium 4.3 Chloride 94 L Carbon Dioxide 23 Anion Gap 22 H BUN 45 H Creatinine 2.8 H Est GFR ( Amer) 31 Est GFR (Non-Af Amer) 26 Random Glucose 147 H D Calcium 8.0 L Phosphorus 5.2 H Magnesium 2.3 Total Bilirubin 3.5 H AST 857 H D ALT 336 H D Alkaline Phosphatase 49 Troponin I Total Protein 6.1 L Albumin 3.4 L Globulin 2.7 Albumin/Globulin Ratio 1.3 08/08/18 08/08/18 10:32 10:32 WBC 13.3 H RBC 4.86 Hgb 12.6 Hct 38.8 MCV 79.9 L MCH 25.9 L MCHC 32.4 L RDW 19.3 H Plt Count 206 MPV 9.2 Neut % (Auto) Lymph % (Auto) [place] % (Auto) Eos % (Auto) Baso % (Auto) Neut # (Auto) Lymph # (Auto) [place] # (Auto) Eos # (Auto) Baso # (Auto) PT 36.5 H INR 3.3 H* APTT 44.0 H D Sodium Potassium Chloride Carbon Dioxide Anion Gap BUN Creatinine Est GFR ( Amer) Est GFR (Non-Af Amer) Random Glucose Calcium Phosphorus Magnesium Total Bilirubin AST ALT Alkaline Phosphatase Troponin I Total Protein Albumin Globulin Albumin/Globulin Ratio Radiology Impressions: Radiology Impressions Duplex Scan Lower Extremity Artery 08/06/18 14:44 IMPRESSION: Right: No evidence of deep or superficial vein thrombosis of the right lower extremity. Pulsatile venous flow noted of the right side. Left: Acute deep vein thrombosis of the left distal popliteal, posterior tibial and peroneal veins, with moderate reduction of the venous return. Pulsatile venous flow noted of the left side. Chest X-Ray 08/08/18 08:02 IMPRESSION: Small left pleural effusion. Mild venous congestion. Patchy increased consolidative changes at the left lung base. Nodularity in the left hilar/suprahilar region may represent vessels on end. Right hilar prominence. Cardiomegaly. Fluoroscopy 08/08/18 14:00 IMPRESSION: Fluoroscopy provided. EKG/Cardiology Studies: Cardiology / EKG Studies 08/08/18 10:48 ELECTROCARDIOGRAM Stat Comment: Mode Of Transportation: BED Reason For Exam: To see if change in [facility] Critical Care Progress Note - Nutrition Nutrition: Nutrition Category Date Time Status Diabetic [Consistent Carbohydrate] [DIET] Diets 08/08/18 Dinner Active Attending/Attestation - Attestation I have personally seen and examined this patient.: Yes I have fully participated in the care of the patient.: Yes I have reviewed all pertinent clinical information: Yes Notes (Text): 08/08/18 16:18 Today: July The Patient was seen and examined at the bedside, Medical records reviewed, and management issues were discussed and formulated with the house staff. I have reviewed all the relevant clinical, laboratory, hemodynamic, radiographic data and medications Events reviewed Pain issues, skin care, head of the bed elevation, glycemic control were addressed. Agree with above resident's assessment and treatment plans of care as transcribed in Dr. Causey's note.
--- NOTE | 2018-08-08 12:14 | VASCLAB ---
Date of service: 08/06/2018 PROCEDURE: Lower Extremity Venous Duplex Exam. HISTORY: Left leg DVT, Elevated D-Dimer PRIORS: None. TECHNIQUE: Bilateral common femoral, femoral, popliteal and posterior tibial, peroneal and great saphenous veins were evaluated. Flow was assessed with color Doppler, compressibility, assessment of phasic flow and augmentation response. Report prepared by SANCHEZ Michael FINDINGS: RIGHT: 1. Common Femoral Vein: 1.1. Compressibility - Fully compressible: Thrombus - None : Flow - Pulsatile: Augmentation -Normal: Reflux - None. 2. Femoral Vein: 2.1. Compressibility - Fully compressible: Thrombus - None : Flow - Phasic: Augmentation -Normal: Reflux - None. 3. Popliteal Vein: 3.1. Compressibility - Fully compressible: Thrombus - None : Flow - Phasic: Augmentation -Normal: Reflux - None. 4. Posterior Tibial Vein: 4.1. Compressibility - Fully compressible: Thrombus - None: Flow - Phasic: Augmentation -Normal: Reflux - None. 5. Peroneal Vein: 5.1. Compressibility - Fully compressible: Thrombus - None: Flow - Phasic: Augmentation -Normal: Reflux - None. 6. Great Saphenous Vein: 6.1. Compressibility - Fully compressible: Thrombus - None: Flow - Phasic: Augmentation - Normal: Reflux - None. LEFT: 1. Common Femoral Vein: 1.1. Compressibility - Fully compressible: Thrombus - None: Flow - Pulsatile: Augmentation -Normal: Reflux - None. 2. Femoral Vein: 2.1. Compressibility - Fully compressible: Thrombus - None: Flow - Pulsatile: Augmentation -Normal: Reflux - None. 3. Popliteal Vein: 3.1. Compressibility - Partial: Thrombus - Acute : Flow - Reduced 4. Posterior Tibial Vein: 4.1. Compressibility - Incompressible: Thrombus - Acute: 5. Peroneal Vein: 5.1. Compressibility - Incompressible: Thrombus - Acute: 6. Great Saphenous Vein: 6.1. Compressibility - Fully compressible: Thrombus - None: Flow - Phasic: Augmentation - Normal: Reflux - None. OTHER FINDINGS: None. IMPRESSION: Right: No evidence of deep or superficial vein thrombosis of the right lower extremity. Pulsatile venous flow noted of the right side. Left: Acute deep vein thrombosis of the left distal popliteal, posterior tibial and peroneal veins, with moderate reduction of the venous return. Pulsatile venous flow noted of the left side.
[2018-08-08] MEDS ORDERED: Iodixanol 320 MG/ML 200 ML BOTTLE IV ONE (13:00)
[2018-08-08] MEDS ORDERED: HEPARIN-NS 5,000 UNITS/500 ML 5,000 UNIT/500 ML BAG IV ONE (13:00)
[2018-08-08] MEDS ORDERED: Vancomycin 1 gm/D5W 200 ml 0 GM/0 ML BAG IVPB ONE (13:01)
[2018-08-08] MEDS ORDERED: Midazolam 2 MG/2 ML VIAL ONE (13:33)
[2018-08-08] MEDS ORDERED: ceFAZolin 1 gm in NS 1 GM/100 ML BAG IVPB ONE (13:33)
--- NOTE | 2018-08-08 14:11 | PCM.SURG1 ---
Surgeon's Initial Post Op Note - Surgeon's Notes Surgeon: Dr. Alvares Manager Reliability: Cady PGY2 Type of Anesthesia: IV Sedation Anesthesia Administered By: Dr. Rangel Pre-Operative Diagnosis: Pulmonary embolism, LLE DVT Operative Findings: IVC filter tip placed just below renal veins Post-Operative Diagnosis: Pulmonary embolism, LLE DVT Operation Performed: IVC filter insertion Specimen/Specimens Removed: N/A Estimated Blood Loss: EBL {In ML}: 10 Blood Products Given: N/A Drains Used: No Drains Post-Op Condition: Good Date of Surgery/Procedure: 08/08/18 Time of Surgery/Procedure: 14:11
--- NOTE | 2018-08-08 14:53 | RAD ---
Date of service: 08/08/2018 PROCEDURE: Intraoperative fluoroscopy HISTORY: PE COMPARISON: Not available TECHNIQUE: Intraoperative fluoroscopy was provided for vena caval filter insertion. Total time of fluoroscopy was 76.2 sec. Cumulative dose was 31.97 mGy. FINDINGS: Several fluoroscopic spot films are submitted. IMPRESSION: Fluoroscopy provided.
[2018-08-08] MEDS ORDERED: Heparin25000 units/250ml 1/2NS 25,000 UNITS/250 ML BAG IV PRN (15:52)
[2018-08-08] MEDS: Heparin25000 units/250ml 1/2NS 25,000 UNITS/250 ML BAG IV PRN (16:00)
--- NOTE | 2018-08-08 16:05 | CARD ---
APPROVED REPORT Date of service: 08/08/2018 EKG Measurement Heart [id number] ID [id number] <Conclusion> Normal sinus rhythm Right atrial enlargement T wave abnormality, consider lateral ischemia Prolonged QT Abnormal ECG
--- NOTE | 2018-08-08 18:24 | CP.PCM.PN ---
Subjective - Date & Time of Evaluation Date of Evaluation: 08/08/18 Time of Evaluation: 12:30 - Subjective Subjective: Patient complaining of pleuritic chest pain; some difficulty breathing; NPO awaiting IVC filter placement; Objective - Vital Signs/Intake and Output Vital Signs (last 24 hours): Temp Pulse Resp BP Pulse Ox 97.7 F 100 H 17 130/73 100 08/08/18 15:55 08/08/18 18:00 08/08/18 18:00 08/08/18 15:55 08/08/18 18:00 Intake and Output: 08/08/18 08/08/18 06:59 18:59 Intake Total 1217.6 1035.2 Output Total 340 1560 Balance 877.6 -524.8 - Medications Medications: Current Medications Aspirin (Aspirin Chewable) 81 mg PO DAILY [facility] Last Admin: 08/08/18 09:31 Dose: Not Given Carvedilol (Coreg) 6.25 mg PO BID [facility] Last Admin: 08/08/18 17:36 Dose: 6.25 mg Folic Acid (Folic Acid) 1 mg PO DAILY [facility] Sodium Bicarbonate 150 meq/ (Dextrose) 1,150 mls @ 40 mls/hr IV .Q24H [facility] Last Admin: 08/08/18 13:00 Dose: Not Given Heparin Sodium/Sodium Chloride (Heparin 34058 Units/250ml 1/2 Normal Saline) 25,000 units in 250 mls @ 8.91 mls/hr IV .Q24H PRN; Protocol PRN Reason: ADJUST RATE PER PROTOCOL Last Admin: 08/08/18 16:00 Dose: 9 units/kg/hr, 8.91 mls/hr Pantoprazole Sodium (Protonix Ec Tab) 40 mg PO DAILY [facility] Last Admin: 08/08/18 09:31 Dose: Not Given Rosuvastatin Calcium (Crestor) 5 mg PO QPM [facility] Last Admin: 08/07/18 17:51 Dose: 5 mg Thiamine HCl (Vitamin B1 Tab) 100 mg PO DAILY [facility] - Labs Labs: 08/08/18 10:32 08/08/18 17:35 PT 36.5 SECONDS (9.7-12.2) H 08/08/18 10:32 INR 3.3 H* 08/08/18 10:32 APTT 44.0 SECONDS (21-34) H D 08/08/18 10:32 - Constitutional Appears: Non-toxic, No Acute Distress - Eye Exam Eye Exam: Normal appearance. absent: Scleral icterus - Respiratory Exam Respiratory Exam: Clear to Ausculation Bilateral. absent: Respiratory Distress - Cardiovascular Exam Cardiovascular Exam: RRR, +S1, +S2. absent: Gallop, Rubs - GI/Abdominal Exam GI & Abdominal Exam: Soft, Tenderness - Exam Additional comments: knight in place - Extremities Exam Additional comments: 1+ b/l leg edema - Neurological Exam Neurological Exam: Alert, Awake - Psychiatric Exam Psychiatric exam: Normal Mood. absent: Agitated Assessment and Plan (1) Acute renal failure Assessment & Plan: ATN secondary to contrast nephropathy, possible hypoperfusion/ischemic insult from multiple thrombi, previously oliguric, now showing signs of recovery with polyuria; profound lactic acidosis improving (as indicated by decreasing anion gap); relatively stable electrolyte status, hyperkalemia resolved with aggressi ve medical management; doesn't appear overly volume overloaded; discussed with CCM attending, no indication for HD; -Decreasing bicarb drip to 40 cc/hr (D5W w/ 150 meq sodium bicarb); -May need to start additional IVF, given polyuria; will monitor for now given severe cardiomyopathy; -Avoid nephrotoxic agents; Status: Acute (2) Metabolic acidosis Assessment & Plan: See above; Status: Acute (3) Pulmonary embolism Assessment & Plan: With multiple thrombi, s/p systemic tPA administration yesterday; clinically appears much improved; continue heparin drip; Status: Acute (4) Congestive heart failure Assessment & Plan: Severe cardiomopathy, continue to optimize with B-blockers; continue to hold AMADO blockade until renal function stabilizes; Status: Chronic
[2018-08-08] MEDS ORDERED: Potassium Chloride 20 mEq ER Tab PO ONE (18:28)
[2018-08-08] MEDS: Magnesium Sulfate 1 gm in D5W 1 GM/100 ML BAG IVPB SCH ×2 (23:15→23:46)
--- NOTE | 2018-08-09 00:34 | OP ---
PROCEDURE DATE: 08/08/2018 PREOPERATIVE DIAGNOSES: Pulmonary embolism and deep vein thrombosis. POSTOPERATIVE DIAGNOSES: Pulmonary embolism and deep vein thrombosis. PROCEDURE CARRIED OUT: Placement of Option ELITE filter via right femoral vein with C-arm fluoroscopy, ultrasound-guided puncture, and micropuncture technique. SURGEON: Burke Alvares Jr., MD VISION MIXER: Robert Lazar DO ANESTHESIOLOGIST: Dr. Guevara. TYPE OF ANESTHESIA: Local with sedation. INDICATIONS: The patient had multiple medical problems including decreased ejection fraction, clot in his heart. He also has had a pulmonary embolism with a clot believed to be coming from the right popliteal area. OPERATIVE FINDINGS: Filter was deployed at the level of the renal veins in an upright position. DESCRIPTION OF PROCEDURE: The patient was given local anesthesia. Using ultrasound guidance and micropuncture technique, the right common femoral vein was punctured. Under fluoroscopic control, the guidewire was advanced centrally. A sheath dilator was passed over this. A 5-Macanese sheath was placed and then the appropriate pictures were taken showing the confluence of the iliac veins and location of renal veins. The filter was then deployed, the tip of it just level of the renal veins. Pressure was applied to the groin. The procedure was terminated. Blood loss of procedure was 5 mL. Operation carried out is Option ELITE filter via the right femoral vein with C-arm fluoroscopy, ultrasound-guided puncture and micropuncture technique. Ultrasound images of the groin showed the vein was 13 mm in diameter. Burke Alvares Jr., MD
[2018-08-09] MEDS: Sodium Bicarbonate 8.4% 150 MEQ in Dextrose 5% In Water 1,000 ML IV SCH (01:37)
[2018-08-09 06:16] LABS: BASO % 0.2 % (0.0-2.0); HEMOGLOBIN 12.6 g/dL (12.0-18.0); LYMPH # 1.5 K/uL (1.0-4.3); MEAN CELL VOLUME 81.1 fL (80.0-94.0); MEAN CORPUSCULAR HEMOGLOBIN 25.5 pg (27.0-31.0); MEAN CORPUSCULAR HGB CONC 31.4 g/dL (33.0-37.0); MEAN PLATELET VOLUME 9.2 fL (7.2-11.7); MONO # 0.7 K/uL (0.0-0.8); MONO % 6.3 % (0.0-10.0); NEUT # 9.3 K/uL (1.8-7.0); NEUT % 80.5 % (50.0-75.0); NRBC % 0.5 % (0.0-2.0); RBC 4.93 Mil/uL (4.40-5.90); RED CELL DISTRIBUTION WIDTH 19.4 % (11.5-14.5); WHITE BLOOD COUNT 11.6 K/uL (4.8-10.8)
[2018-08-09 06:31] LABS: INR 2.6; PARTIAL THROMBOPLASTIN TIME 70.8 SECONDS (21-34); PROTHROMBIN TIME 28.2 SECONDS (9.7-12.2)
[2018-08-09 06:46] LABS: ALB/GLOB RATIO 1.2 (1.0-2.1); ALBUMIN 3.3 g/dL (3.5-5.0); CALCIUM 7.5 mg/dl (8.6-10.4)
[2018-08-09] MEDS: Pantoprazole 40 mg EC Tab PO SCH (09:31)
[2018-08-09] MEDS: Heparin25000 units/250ml 1/2NS 25,000 UNITS/250 ML BAG IV PRN (09:40)
--- NOTE | 2018-08-09 10:04 | CP.PCM.PN ---
Subjective - Date & Time of Evaluation Date of Evaluation: 08/09/18 Time of Evaluation: 09:56 - Subjective Subjective: Surgery Progress Note. Dr. Alvares Pt seen and examined at bedside. No new complaints. States that he is feeling better. No F/C. Right groin dressing clean, dry and intact. No N/V/D. Distal lower extremities warm. Objective - Vital Signs/Intake and Output Vital Signs (last 24 hours): Temp Pulse Resp BP Pulse Ox 97.4 F L 98 H 12 107/74 97 08/09/18 08:00 08/09/18 09:22 08/09/18 09:22 08/09/18 09:22 08/09/18 09:22 Intake and Output: 08/09/18 08/09/18 06:59 18:59 Intake Total 1086.7 956.7 Output Total 1800 250 Balance -713.3 706.7 - Medications Medications: Current Medications Aspirin (Aspirin Chewable) 81 mg PO DAILY [facility] Last Admin: 08/09/18 09:31 Dose: 81 mg Carvedilol (Coreg) 6.25 mg PO BID [facility] Last Admin: 08/09/18 09:31 Dose: 6.25 mg Folic Acid (Folic Acid) 1 mg PO DAILY [facility] Last Admin: 08/09/18 09:31 Dose: 1 mg Heparin Sodium/Sodium Chloride (Heparin 05669 Units/250ml 1/2 Normal Saline) 25,000 units in 250 mls @ 8.91 mls/hr IV .Q24H PRN; Protocol PRN Reason: ADJUST RATE PER PROTOCOL Last Admin: 08/09/18 09:40 Dose: 9 units/kg/hr, 8.91 mls/hr Pantoprazole Sodium (Protonix Ec Tab) 40 mg PO DAILY [facility] Last Admin: 08/09/18 09:31 Dose: 40 mg Rosuvastatin Calcium (Crestor) 5 mg PO QPM [facility] Last Admin: 08/07/18 17:51 Dose: 5 mg Thiamine HCl (Vitamin B1 Tab) 100 mg PO DAILY [facility] Last Admin: 08/09/18 09:31 Dose: 100 mg - Labs Labs: 08/09/18 06:02 08/09/18 06:02 PT 28.2 SECONDS (9.7-12.2) H D 08/09/18 06:02 INR 2.6 D 08/09/18 06:02 APTT 70.8 SECONDS (21-34) H D 08/09/18 06:02 - Constitutional Appears: Well, Non-toxic, No Acute Distress - Head Exam Head Exam: ATRAUMATIC, NORMAL INSPECTION, NORMOCEPHALIC - Eye Exam Eye Exam: EOMI, Normal appearance, Scleral icterus - ENT Exam ENT Exam: Mucous Membranes Moist - Respiratory Exam Respiratory Exam: NORMAL BREATHING PATTERN. absent: Accessory Muscle Use, Respiratory Distress - GI/Abdominal Exam GI & Abdominal Exam: Soft. absent: Distended, Firm, Guarding, Tenderness, Rebound - Extremities Exam Additional comments: Right groin dressing clean, dry and intact - Neurological Exam Neurological Exam: Alert, Awake, Oriented x3 - Psychiatric Exam Psychiatric exam: Normal Affect, Normal Mood - Skin Skin Exam: Dry, Intact, Normal Color, Warm Assessment and Plan - Assessment and Plan (Free Text) Assessment: 38yo M with L DVT and peripheral PE on AC. s/p IVC Filter placement 08/08/18 Plan: - Continue management as per Medical and ICU teams - No further surgical intervention warranted Further recs as per Dr. Giorgio Phelps PGY2 surgery
--- NOTE | 2018-08-09 11:04 | CP.CCUPN ---
<Ervin Causey - Last Filed: 08/09/18 12:55> CCU Subjective - Physician Review Subjective (Free Text): 08/09/18 10:45 PGY-1 Critical Care Progress Note for Dr. Phipps Seen and examined at bedside this AM s/p IVC filter placement LLE DVT, PE with nonischemic cardiomyopathy, EF 5%, hx of noncompliance ECHO consistent with multiple thrombi in cardiac chambers s/p tPA treatment c/w heparin gtt until renal fxn improves more before transitioning to oral agents possible AICD ATN 2/2 contrast nephropathy, previously oliguric but now showing signs of recovery with polyuria lactic acidosis improving, hyperkalemia resolved with aggressive med mgmt bicarb drip d/c'd knight to be removed, producing adequate urine CCU Objective - Vital Signs / Intake & Output Vital Signs (Last 4 hours): Vital Signs Temp Pulse Resp BP Pulse Ox 08/09/18 10:22 107/70 08/09/18 10:00 105 H 16 99 08/09/18 09:22 98 H 12 107/74 97 08/09/18 08:22 100 H 14 131/70 97 08/09/18 08:00 97.4 F L 08/09/18 07:22 96 H 14 116/80 97 Intake and Output (Last 8hrs): Intake & Output 08/08/18 08/09/18 08/09/18 22:59 06:59 14:59 Intake Total 501.9 891.2 965.6 Output Total 1100 1200 325 Balance -598.1 -308.8 640.6 Weight 99 kg Intake: IV 250 Intake, IV Amount 381.9 691.2 115.6 Right Forearm 61.9 71.2 35.6 left ac 320 320 80 lefy wrist 300 Oral 120 200 600 Output: Urine 1100 1200 325 Urethral (Knight) 1100 1200 325 - Physical Exam Head: Positive for: Atraumatic, Normocephalic Pupils: Positive for: PERRL Extroacular Muscles: Positive for: EOMI Conjunctiva: Positive for: Normal Mouth: Positive for: Moist Mucous Membranes Respiratory/Chest: Positive for: Decreased Breath Sounds, Rales Cardiovascular: Positive for: Regular Rate and Rhythm, Normal S1, S2 Abdomen: Positive for: Normal Bowel Sounds. Negative for: Tenderness, Distention, Rebound, Guarding Back: Positive for: Normal Inspection Upper Extremity: Positive for: Normal Inspection. Negative for: Cyanosis, Edema Lower Extremity: Positive for: Normal Inspection, NORMAL PULSES. Negative for: Edema, CALF TENDERNESS Neurological: Positive for: CN II-XII Intact, Speech Normal Skin: Positive for: Dry, Normal Color, Cold (cool distal extremities b/l ) Psychiatric: Positive for: Alert, Oriented x 3 - Medications Active Medications: Active Medications Generic Name Dose Route Start Last Admin Trade Name Freq PRN Reason Stop Dose Admin Aspirin 81 mg 08/07/18 10:00 08/09/18 09:31 Aspirin Chewable PO 81 mg DAILY JACKELIN Administration Carvedilol 6.25 mg 08/06/18 18:00 08/09/18 09:31 Coreg PO 6.25 mg BID JACKELIN Administration Folic Acid 1 mg 08/09/18 10:00 08/09/18 09:31 Folic Acid PO 1 mg DAILY JACKELIN Administration Heparin Sodium/Sodium Chloride 25,000 units in 250 mls @ 8.91 mls/hr 08/08/18 15:59 08/09/18 09:40 Heparin 70621 Units/250ml 1/2 Normal Saline IV 9 units/kg/hr .Q24H PRN 8.91 mls/hr ADJUST RATE PER PROTOCOL Administration Protocol 9 UNITS/KG/HR Pantoprazole Sodium 40 mg 08/07/18 10:00 08/09/18 09:31 Protonix Ec Tab PO 40 mg DAILY JACKELIN Administration Rosuvastatin Calcium 5 mg 08/06/18 18:00 08/07/18 17:51 Crestor PO 5 mg QPM JACKELIN Administration Thiamine HCl 100 mg 08/09/18 10:00 08/09/18 09:31 Vitamin B1 Tab PO 100 mg DAILY JACKELIN Administration - Patient Studies Lab Studies: Microbiology Studies 08/07/18 14:37 Blood Culture - Preliminary Blood NO GROWTH AFTER 24 HOURS 08/07/18 14:37 Blood Culture - Preliminary Blood NO GROWTH AFTER 24 HOURS 08/06/18 21:45 MRSA Culture (Admit) - Final Nose MRSA NOT DETECTED Lab Studies 08/09/18 08/09/18 08/09/18 Range/Units 06:02 06:02 06:02 WBC 11.6 H (4.8-10.8) K/uL RBC 4.93 (4.40-5.90) Mil/uL Hgb 12.6 (12.0-18.0) g/dL Hct 40.0 (35.0-51.0) % MCV 81.1 (80.0-94.0) fL MCH 25.5 L (27.0-31.0) pg MCHC 31.4 L (33.0-37.0) g/dL RDW 19.4 H (11.5-14.5) % Plt Count 218 (130-400) K/uL MPV 9.2 (7.2-11.7) fL Neut % (Auto) 80.5 H (50.0-75.0) % Lymph % (Auto) 13.0 L (20.0-40.0) % [place] % (Auto) 6.3 (0.0-10.0) % Eos % (Auto) 0.0 (0.0-4.0) % Baso % (Auto) 0.2 (0.0-2.0) % Neut # (Auto) 9.3 H (1.8-7.0) K/uL Lymph # (Auto) 1.5 (1.0-4.3) K/uL [place] # (Auto) 0.7 (0.0-0.8) K/uL Eos # (Auto) 0.0 (0.0-0.7) K/uL Baso # (Auto) 0.0 (0.0-0.2) K/uL PT 28.2 H D (9.7-12.2) SECONDS INR 2.6 D APTT 70.8 H D (21-34) SECONDS Sodium 134 (132-148) mmol/L Potassium 4.7 (3.6-5.2) mmol/L Chloride 92 L (98-107) mmol/L Carbon Dioxide 30 (22-30) mmol/L Anion Gap 16 (10-20) BUN 38 H (9-20) mg/dL Creatinine 1.8 H (0.8-1.5) mg/dL Est GFR ( Amer) 52 Est GFR (Non-Af Amer) 43 POC Glucose (mg/dL) (65-110) mg/dL Random Glucose 128 H (75-110) mg/dL Calcium 7.5 L (8.6-10.4) mg/dl Phosphorus 3.0 (2.5-4.5) mg/dL Magnesium 2.9 H (1.6-2.3) mg/dL Total Bilirubin 3.9 H (0.2-1.3) mg/dL AST 515 H D (17-59) U/L ALT 283 H (21-72) U/L Alkaline Phosphatase 66 (38-126) U/L Total Protein 6.0 L (6.3-8.3) g/dL Albumin 3.3 L (3.5-5.0) g/dL Globulin 2.7 (2.2-3.9) gm/dL Albumin/Globulin Ratio 1.2 (1.0-2.1) 08/08/18 08/08/18 08/08/18 Range/Units 22:24 17:35 10:32 WBC (4.8-10.8) K/uL RBC (4.40-5.90) Mil/uL Hgb (12.0-18.0) g/dL Hct (35.0-51.0) % MCV (80.0-94.0) fL MCH (27.0-31.0) pg MCHC (33.0-37.0) g/dL RDW (11.5-14.5) % Plt Count (130-400) K/uL MPV (7.2-11.7) fL Neut % (Auto) (50.0-75.0) % Lymph % (Auto) (20.0-40.0) % [place] % (Auto) (0.0-10.0) % Eos % (Auto) (0.0-4.0) % Baso % (Auto) (0.0-2.0) % Neut # (Auto) (1.8-7.0) K/uL Lymph # (Auto) (1.0-4.3) K/uL [place] # (Auto) (0.0-0.8) K/uL Eos # (Auto) (0.0-0.7) K/uL Baso # (Auto) (0.0-0.2) K/uL PT 36.5 H (9.7-12.2) SECONDS INR 3.3 H* APTT 58.6 H D 44.0 H D (21-34) SECONDS Sodium 137 (132-148) mmol/L Potassium 3.2 L (3.6-5.2) mmol/L Chloride 95 L (98-107) mmol/L Carbon Dioxide 30 (22-30) mmol/L Anion Gap 14 (10-20) BUN 45 H (9-20) mg/dL Creatinine 2.5 H (0.8-1.5) mg/dL Est GFR ( Amer) 35 Est GFR (Non-Af Amer) 34 POC Glucose (mg/dL) (65-110) mg/dL Random Glucose 123 H (75-110) mg/dL Calcium 8.0 L (8.6-10.4) mg/dl Phosphorus (2.5-4.5) mg/dL Magnesium (1.6-2.3) mg/dL Total Bilirubin (0.2-1.3) mg/dL AST (17-59) U/L ALT (21-72) U/L Alkaline Phosphatase (38-126) U/L Total Protein (6.3-8.3) g/dL Albumin (3.5-5.0) g/dL Globulin (2.2-3.9) gm/dL Albumin/Globulin Ratio (1.0-2.1) 08/08/18 08/07/18 08/07/18 Range/Units 10:32 10:01 09:19 WBC 13.3 H (4.8-10.8) K/uL RBC 4.86 (4.40-5.90) Mil/uL Hgb 12.6 (12.0-18.0) g/dL Hct 38.8 (35.0-51.0) % MCV 79.9 L (80.0-94.0) fL MCH 25.9 L (27.0-31.0) pg MCHC 32.4 L (33.0-37.0) g/dL RDW 19.3 H (11.5-14.5) % Plt Count 206 (130-400) K/uL MPV 9.2 (7.2-11.7) fL Neut % (Auto) (50.0-75.0) % Lymph % (Auto) (20.0-40.0) % [place] % (Auto) (0.0-10.0) % Eos % (Auto) (0.0-4.0) % Baso % (Auto) (0.0-2.0) % Neut # (Auto) (1.8-7.0) K/uL Lymph # (Auto) (1.0-4.3) K/uL [place] # (Auto) (0.0-0.8) K/uL Eos # (Auto) (0.0-0.7) K/uL Baso # (Auto) (0.0-0.2) K/uL PT (9.7-12.2) SECONDS INR APTT (21-34) SECONDS Sodium (132-148) mmol/L Potassium (3.6-5.2) mmol/L Chloride (98-107) mmol/L Carbon Dioxide (22-30) mmol/L Anion Gap (10-20) BUN (9-20) mg/dL Creatinine (0.8-1.5) mg/dL Est GFR ( Amer) Est GFR (Non-Af Amer) POC Glucose (mg/dL) 120 H 25 L* (65-110) mg/dL Random Glucose (75-110) mg/dL Calcium (8.6-10.4) mg/dl Phosphorus (2.5-4.5) mg/dL Magnesium (1.6-2.3) mg/dL Total Bilirubin (0.2-1.3) mg/dL AST (17-59) U/L ALT (21-72) U/L Alkaline Phosphatase (38-126) U/L Total Protein (6.3-8.3) g/dL Albumin (3.5-5.0) g/dL Globulin (2.2-3.9) gm/dL Albumin/Globulin Ratio (1.0-2.1) Laboratory Results - last 24 hr 08/07/18 08/07/18 08/08/18 09:19 10:01 10:32 WBC 13.3 H RBC 4.86 Hgb 12.6 Hct 38.8 MCV 79.9 L MCH 25.9 L MCHC 32.4 L RDW 19.3 H Plt Count 206 MPV 9.2 Neut % (Auto) Lymph % (Auto) [place] % (Auto) Eos % (Auto) Baso % (Auto) Neut # (Auto) Lymph # (Auto) [place] # (Auto) Eos # (Auto) Baso # (Auto) PT INR APTT Sodium Potassium Chloride Carbon Dioxide Anion Gap BUN Creatinine Est GFR ( Amer) Est GFR (Non-Af Amer) POC Glucose (mg/dL) 25 L* 120 H Random Glucose Calcium Phosphorus Magnesium Total Bilirubin AST ALT Alkaline Phosphatase Total Protein Albumin Globulin Albumin/Globulin Ratio 08/08/18 08/08/18 08/08/18 10:32 17:35 22:24 WBC RBC Hgb Hct MCV MCH MCHC RDW Plt Count MPV Neut % (Auto) Lymph % (Auto) [place] % (Auto) Eos % (Auto) Baso % (Auto) Neut # (Auto) Lymph # (Auto) [place] # (Auto) Eos # (Auto) Baso # (Auto) PT 36.5 H INR 3.3 H* APTT 44.0 H D 58.6 H D Sodium 137 Potassium 3.2 L Chloride 95 L Carbon Dioxide 30 Anion Gap 14 BUN 45 H Creatinine 2.5 H Est GFR ( Amer) 35 Est GFR (Non-Af Amer) 34 POC Glucose (mg/dL) Random Glucose 123 H Calcium 8.0 L Phosphorus Magnesium Total Bilirubin AST ALT Alkaline Phosphatase Total Protein Albumin Globulin Albumin/Globulin Ratio 08/09/18 08/09/18 08/09/18 06:02 06:02 06:02 WBC 11.6 H RBC 4.93 Hgb 12.6 Hct 40.0 MCV 81.1 MCH 25.5 L MCHC 31.4 L RDW 19.4 H Plt Count 218 MPV 9.2 Neut % (Auto) 80.5 H Lymph % (Auto) 13.0 L [place] % (Auto) 6.3 Eos % (Auto) 0.0 Baso % (Auto) 0.2 Neut # (Auto) 9.3 H Lymph # (Auto) 1.5 [place] # (Auto) 0.7 Eos # (Auto) 0.0 Baso # (Auto) 0.0 PT 28.2 H D INR 2.6 D APTT 70.8 H D Sodium 134 Potassium 4.7 Chloride 92 L Carbon Dioxide 30 Anion Gap 16 BUN 38 H Creatinine 1.8 H Est GFR ( Amer) 52 Est GFR (Non-Af Amer) 43 POC Glucose (mg/dL) Random Glucose 128 H Calcium 7.5 L Phosphorus 3.0 Magnesium 2.9 H Total Bilirubin 3.9 H AST 515 H D ALT 283 H Alkaline Phosphatase 66 Total Protein 6.0 L Albumin 3.3 L Globulin 2.7 Albumin/Globulin Ratio 1.2 Radiology Impressions: Radiology Impressions Duplex Scan Lower Extremity Artery 08/06/18 14:44 IMPRESSION: Right: No evidence of deep or superficial vein thrombosis of the right lower extremity. Pulsatile venous flow noted of the right side. Left: Acute deep vein thrombosis of the left distal popliteal, posterior tibial and peroneal veins, with moderate reduction of the venous return. Pulsatile venous flow noted of the left side. Fluoroscopy 08/08/18 14:00 IMPRESSION: Fluoroscopy provided. EKG/Cardiology Studies: Cardiology / EKG Studies 08/08/18 10:48 ELECTROCARDIOGRAM Stat Comment: Mode Of Transportation: BED Reason For Exam: To see if change in [facility] Review of Systems - Review of Systems All systems: reviewed and no additional remarkable complaints except Review of Systems: as per HPI Critical Care Progress Note - Nutrition Nutrition: Nutrition Category Date Time Status Diabetic [Consistent Carbohydrate] [DIET] Diets 08/08/18 Dinner Active Assessment/Plan - Assessment and Plan (Free Text) Assessment: 38 yo male with pmhx of severe systolic and diastolic heart fa ilure with edema, nonischemic cardiomyopathy, medication noncompliance, HTN, HLD presenting to ED with acute DVT/PE, multiple thrombi in cardiac chambers. Plan: Neuro -alert and oriented x3 Pulm -Duplex LE: acute L leg DVT -CTA chest: Filling defect arising within distal R main pulmonary artery involving distal pulmonary artery branches. No evidence of saddle embolus. -heparin gtt -ASA 81 mg PO daily -s/p IVC filter CV -HFrEF, nonischemic cardiomyopathy -EF 5% on repeat ECHO -Cardiology (Dr. Mccarty) on board -large thrombus noted in LV, s/p alteplase -lasix, lisinopril held given JENI, acidosis -c/w coreg, aldactone -possible AICD, f/u further cardiac recs Heme -c/w heparin gtt until renal fxn improves Endo -no acute issues GI -protonix 40 mg IVP daily Renal -renal fxn improving -Nephrology on case -acute tubular necrosis 2/2 contrast induced nephropathy -may need some IVF given polyuria, f/u further Nephro recs ID -no acute issues PPx, Diet, Disposition -DVT: heparin gtt -GI: protonix -Diet: NPO Case discussed with Dr. Moise Causey DO, PGY-1 <Rodo Phipps - Last Filed: 08/09/18 17:22> CCU Subjective - Physician Review Critical Care Time Spent (in minutes): 45 CCU Objective - Vital Signs / Intake & Output Vital Signs (Last 4 hours): Vital Signs Temp Pulse Resp BP Pulse Ox 08/09/18 16:22 100 H 14 105/62 100 08/09/18 16:00 97.4 F L 101 H 14 99 08/09/18 15:22 98 H 14 100 08/09/18 15:20 99 H 12 109/65 100 08/09/18 15:00 104 H 15 100 08/09/18 14:00 102 H 15 96 08/09/18 13:22 102 H 22 103/66 94 L Intake and Output (Last 8hrs): Intake & Output 08/09/18 08/09/18 08/09/18 06:59 14:59 22:59 Intake Total 891.2 1361.2 137.8 Output Total 1200 475 Balance -308.8 886.2 137.8 Weight 218 lb 4.122 oz Intake: IV 250 Intake, IV Amount 691.2 271.2 137.8 Left Distal Port 120 120 Antecubital Right Forearm 71.2 53.4 left ac 320 97.8 17.8 lefy wrist 300 Oral 200 840 Output: Urine 1200 475 Urethral (Knight) 1200 475 - Medications Active Medications: Active Medications Generic Name Dose Route Start Last Admin Trade Name Freq PRN Reason Stop Dose Admin Aspirin 81 mg 08/07/18 10:00 08/09/18 09:31 Aspirin Chewable PO 81 mg DAILY JACKELIN Administration Carvedilol 12.5 mg 08/09/18 18:00 Coreg PO BID JACKELIN Folic Acid 1 mg 08/09/18 10:00 08/09/18 09:31 Folic Acid PO 1 mg DAILY JACKELIN Administration Heparin Sodium/Sodium Chloride 25,000 units in 250 mls @ 8.91 mls/hr 08/08/18 15:59 08/09/18 09:40 Heparin 20246 Units/250ml 1/2 Normal Saline IV 9 units/kg/hr .Q24H PRN 8.91 mls/hr ADJUST RATE PER PROTOCOL Administration Protocol 9 UNITS/KG/HR Sodium Chloride 500 mls @ 60 mls/hr 08/09/18 12:45 08/09/18 13:11 Sodium Chloride 0.9% IV 60 mls/hr .[id number] JACKELIN Administration Pantoprazole Sodium 40 mg 08/07/18 10:00 08/09/18 09:31 Protonix Ec Tab PO 40 mg DAILY JACKELIN Administration Rosuvastatin Calcium 5 mg 08/06/18 18:00 08/07/18 17:51 Crestor PO 5 mg QPM JACKELIN Administration Thiamine HCl 100 mg 08/09/18 10:00 08/09/18 09:31 Vitamin B1 Tab PO 100 mg DAILY JACKELIN Administration - Patient Studies Lab Studies: Microbiology Studies 08/07/18 14:37 Blood Culture - Preliminary Blood NO GROWTH AFTER 48 HOURS 08/07/18 14:37 Blood Culture - Preliminary Blood NO GROWTH AFTER 48 HOURS Lab Studies 08/09/18 08/09/18 08/09/18 Range/Units 11:40 11:11 06:02 WBC (4.8-10.8) K/uL RBC (4.40-5.90) Mil/uL Hgb (12.0-18.0) g/dL Hct (35.0-51.0) % MCV (80.0-94.0) fL MCH (27.0-31.0) pg MCHC (33.0-37.0) g/dL RDW (11.5-14.5) % Plt Count (130-400) K/uL MPV (7.2-11.7) fL Neut % (Auto) (50.0-75.0) % Lymph % (Auto) (20.0-40.0) % [place] % (Auto) (0.0-10.0) % Eos % (Auto) (0.0-4.0) % Baso % (Auto) (0.0-2.0) % Neut # (Auto) (1.8-7.0) K/uL Lymph # (Auto) (1.0-4.3) K/uL [place] # (Auto) (0.0-0.8) K/uL Eos # (Auto) (0.0-0.7) K/uL Baso # (Auto) (0.0-0.2) K/uL PT 28.2 H D (9.7-12.2) SECONDS INR 2.6 D APTT 70.8 H D (21-34) SECONDS Puncture Site Rra pCO2 36 (35-45) mm/Hg pO2 103 H (80-100) mm/Hg HCO3 29.2 H (21-28) mmol/L ABG pH 7.51 H (7.35-7.45) ABG Total CO2 29.8 H (22-28) mmol/L ABG O2 Saturation 99.4 H (95-98) % ABG Base Excess 5.5 H (-2.0-3.0) mmol/L ABG Hemoglobin 11.6 L (11.7-17.4) g/dL ABG Carboxyhemoglobin 2.0 H (0.5-1.5) % POC ABG HHb (Measured) 0.6 (0.0-5.0) % ABG Methemoglobin 0.8 (0.0-3.0) % Reyes Test Po A-a O2 Difference 2.0 mm/Hg Respiratory Index 0 Hgb O2 Saturation 96.6 (95.0-98.0) % FiO2 21.0 % Sodium (132-148) mmol/L Potassium (3.6-5.2) mmol/L Chloride (98-107) mmol/L Carbon Dioxide (22-30) mmol/L Anion Gap (10-20) BUN (9-20) mg/dL Creatinine (0.8-1.5) mg/dL Est GFR ( Amer) Est GFR (Non-Af Amer) POC Glucose (mg/dL) (65-110) mg/dL Random Glucose (75-110) mg/dL Calcium (8.6-10.4) mg/dl Phosphorus (2.5-4.5) mg/dL Magnesium (1.6-2.3) mg/dL Total Bilirubin (0.2-1.3) mg/dL AST (17-59) U/L ALT (21-72) U/L Alkaline Phosphatase (38-126) U/L Total Protein (6.3-8.3) g/dL Albumin (3.5-5.0) g/dL Globulin (2.2-3.9) gm/dL Albumin/Globulin Ratio (1.0-2.1) Urine Color [place] (YELLOW) Urine Clarity Clear (Clear) Urine pH 6.0 (5.0-8.0) Ur Specific Carman 1.017 (1.003-1.030) Urine Protein Negative (NEGATIVE) mg/dL Urine Glucose (UA) Normal (Normal) mg/dL Urine Ketones Negative (NEGATIVE) mg/dL Urine Blood 1+ H (NEGATIVE) Urine Nitrate Negative (NEGATIVE) Urine Bilirubin Negative (NEGATIVE) Urine Urobilinogen 4.0 (0.2-1.0) mg/dL Ur Leukocyte Esterase Trace (Negative) Martinez/uL Urine WBC (Auto) 4 (0-5) /hpf Urine RBC (Auto) 7 H (0-3) /hpf 08/09/18 08/09/18 08/08/18 Range/Units 06:02 06:02 22:24 WBC 11.6 H (4.8-10.8) K/uL RBC 4.93 (4.40-5.90) Mil/uL Hgb 12.6 (12.0-18.0) g/dL Hct 40.0 (35.0-51.0) % MCV 81.1 (80.0-94.0) fL MCH 25.5 L (27.0-31.0) pg MCHC 31.4 L (33.0-37.0) g/dL RDW 19.4 H (11.5-14.5) % Plt Count 218 (130-400) K/uL MPV 9.2 (7.2-11.7) fL Neut % (Auto) 80.5 H (50.0-75.0) % Lymph % (Auto) 13.0 L (20.0-40.0) % [place] % (Auto) 6.3 (0.0-10.0) % Eos % (Auto) 0.0 (0.0-4.0) % Baso % (Auto) 0.2 (0.0-2.0) % Neut # (Auto) 9.3 H (1.8-7.0) K/uL Lymph # (Auto) 1.5 (1.0-4.3) K/uL [place] # (Auto) 0.7 (0.0-0.8) K/uL Eos # (Auto) 0.0 (0.0-0.7) K/uL Baso # (Auto) 0.0 (0.0-0.2) K/uL PT (9.7-12.2) SECONDS INR APTT 58.6 H D (21-34) SECONDS Puncture Site pCO2 (35-45) mm/Hg pO2 (80-100) mm/Hg HCO3 (21-28) mmol/L ABG pH (7.35-7.45) ABG Total CO2 (22-28) mmol/L ABG O2 Saturation (95-98) % ABG Base Excess (-2.0-3.0) mmol/L ABG Hemoglobin (11.7-17.4) g/dL ABG Carboxyhemoglobin (0.5-1.5) % POC ABG HHb (Measured) (0.0-5.0) % ABG Methemoglobin (0.0-3.0) % Reyes Test A-a O2 Difference mm/Hg Respiratory Index Hgb O2 Saturation (95.0-98.0) % FiO2 % Sodium 134 (132-148) mmol/L Potassium 4.7 (3.6-5.2) mmol/L Chloride 92 L (98-107) mmol/L Carbon Dioxide 30 (22-30) mmol/L Anion Gap 16 (10-20) BUN 38 H (9-20) mg/dL Creatinine 1.8 H (0.8-1.5) mg/dL Est GFR ( Amer) 52 Est GFR (Non-Af Amer) 43 POC Glucose (mg/dL) (65-110) mg/dL Random Glucose 128 H (75-110) mg/dL Calcium 7.5 L (8.6-10.4) mg/dl Phosphorus 3.0 (2.5-4.5) mg/dL Magnesium 2.9 H (1.6-2.3) mg/dL Total Bilirubin 3.9 H (0.2-1.3) mg/dL AST 515 H D (17-59) U/L ALT 283 H (21-72) U/L Alkaline Phosphatase 66 (38-126) U/L Total Protein 6.0 L (6.3-8.3) g/dL Albumin 3.3 L (3.5-5.0) g/dL Globulin 2.7 (2.2-3.9) gm/dL Albumin/Globulin Ratio 1.2 (1.0-2.1) Urine Color (YELLOW) Urine Clarity (Clear) Urine pH (5.0-8.0) Ur Specific Carman (1.003-1.030) Urine Protein (NEGATIVE) mg/dL Urine Glucose (UA) (Normal) mg/dL Urine Ketones (NEGATIVE) mg/dL Urine Blood (NEGATIVE) Urine Nitrate (NEGATIVE) Urine Bilirubin (NEGATIVE) Urine Urobilinogen (0.2-1.0) mg/dL Ur Leukocyte Esterase (Negative) Martinez/uL Urine WBC (Auto) (0-5) /hpf Urine RBC (Auto) (0-3) /hpf 08/08/18 08/07/18 08/07/18 Range/Units 17:35 10:01 09:19 WBC (4.8-10.8) K/uL RBC (4.40-5.90) Mil/uL Hgb (12.0-18.0) g/dL Hct (35.0-51.0) % MCV (80.0-94.0) fL MCH (27.0-31.0) pg MCHC (33.0-37.0) g/dL RDW (11.5-14.5) % Plt Count (130-400) K/uL MPV (7.2-11.7) fL Neut % (Auto) (50.0-75.0) % Lymph % (Auto) (20.0-40.0) % [place] % (Auto) (0.0-10.0) % Eos % (Auto) (0.0-4.0) % Baso % (Auto) (0.0-2.0) % Neut # (Auto) (1.8-7.0) K/uL Lymph # (Auto) (1.0-4.3) K/uL [place] # (Auto) (0.0-0.8) K/uL Eos # (Auto) (0.0-0.7) K/uL Baso # (Auto) (0.0-0.2) K/uL PT (9.7-12.2) SECONDS INR APTT (21-34) SECONDS Puncture Site pCO2 (35-45) mm/Hg pO2 (80-100) mm/Hg HCO3 (21-28) mmol/L ABG pH (7.35-7.45) ABG Total CO2 (22-28) mmol/L ABG O2 Saturation (95-98) % ABG Base Excess (-2.0-3.0) mmol/L ABG Hemoglobin (11.7-17.4) g/dL ABG Carboxyhemoglobin (0.5-1.5) % POC ABG HHb (Measured) (0.0-5.0) % ABG Methemoglobin (0.0-3.0) % Reyes Test A-a O2 Difference mm/Hg Respiratory Index Hgb O2 Saturation (95.0-98.0) % FiO2 % Sodium 137 (132-148) mmol/L Potassium 3.2 L (3.6-5.2) mmol/L Chloride 95 L (98-107) mmol/L Carbon Dioxide 30 (22-30) mmol/L Anion Gap 14 (10-20) BUN 45 H (9-20) mg/dL Creatinine 2.5 H (0.8-1.5) mg/dL Est GFR ( Amer) 35 Est GFR (Non-Af Amer) 34 POC Glucose (mg/dL) 120 H 25 L* (65-110) mg/dL Random Glucose 123 H (75-110) mg/dL Calcium 8.0 L (8.6-10.4) mg/dl Phosphorus (2.5-4.5) mg/dL Magnesium (1.6-2.3) mg/dL Total Bilirubin (0.2-1.3) mg/dL AST (17-59) U/L ALT (21-72) U/L Alkaline Phosphatase (38-126) U/L Total Protein (6.3-8.3) g/dL Albumin (3.5-5.0) g/dL Globulin (2.2-3.9) gm/dL Albumin/Globulin Ratio (1.0-2.1) Urine Color (YELLOW) Urine Clarity (Clear) Urine pH (5.0-8.0) Ur Specific [place] (1.003-1.030) Urine Protein (NEGATIVE) mg/dL Urine Glucose (UA) (Normal) mg/dL Urine Ketones (NEGATIVE) mg/dL Urine Blood (NEGATIVE) Urine Nitrate (NEGATIVE) Urine Bilirubin (NEGATIVE) Urine Urobilinogen (0.2-1.0) mg/dL Ur Leukocyte Esterase (Negative) Martinez/uL Urine WBC (Auto) (0-5) /hpf Urine RBC (Auto) (0-3) /hpf Laboratory Results - last 24 hr 08/07/18 08/07/18 08/08/18 09:19 10:01 17:35 WBC RBC Hgb Hct MCV MCH MCHC RDW Plt Count MPV Neut % (Auto) Lymph % (Auto) [place] % (Auto) Eos % (Auto) Baso % (Auto) Neut # (Auto) Lymph # (Auto) [place] # (Auto) Eos # (Auto) Baso # (Auto) PT INR APTT Puncture Site pCO2 pO2 HCO3 ABG pH ABG Total CO2 ABG O2 Saturation ABG Base Excess ABG Hemoglobin ABG Carboxyhemoglobin POC ABG HHb (Measured) ABG Methemoglobin Reyes Test A-a O2 Difference Respiratory Index Hgb O2 Saturation FiO2 Sodium 137 Potassium 3.2 L Chloride 95 L Carbon Dioxide 30 Anion Gap 14 BUN 45 H Creatinine 2.5 H Est GFR ( Amer) 35 Est GFR (Non-Af Amer) 34 POC Glucose (mg/dL) 25 L* 120 H Random Glucose 123 H Calcium 8.0 L Phosphorus Magnesium Total Bilirubin AST ALT Alkaline Phosphatase Total Protein Albumin Globulin Albumin/Globulin Ratio Urine Color Urine Clarity Urine pH Ur Specific [place] Urine Protein Urine Glucose (UA) Urine Ketones Urine Blood Urine Nitrate Urine Bilirubin Urine Urobilinogen Ur Leukocyte Esterase Urine WBC (Auto) Urine RBC (Auto) 08/08/18 08/09/18 08/09/18 22:24 06:02 06:02 WBC 11.6 H RBC 4.93 Hgb 12.6 Hct 40.0 MCV 81.1 MCH 25.5 L MCHC 31.4 L RDW 19.4 H Plt Count 218 MPV 9.2 Neut % (Auto) 80.5 H Lymph % (Auto) 13.0 L [place] % (Auto) 6.3 Eos % (Auto) 0.0 Baso % (Auto) 0.2 Neut # (Auto) 9.3 H Lymph # (Auto) 1.5 [place] # (Auto) 0.7 Eos # (Auto) 0.0 Baso # (Auto) 0.0 PT INR APTT 58.6 H D Puncture Site pCO2 pO2 HCO3 ABG pH ABG Total CO2 ABG O2 Saturation ABG Base Excess ABG Hemoglobin ABG Carboxyhemoglobin POC ABG HHb (Measured) ABG Methemoglobin Reyes Test A-a O2 Difference Respiratory Index Hgb O2 Saturation FiO2 Sodium 134 Potassium 4.7 Chloride 92 L Carbon Dioxide 30 Anion Gap 16 BUN 38 H Creatinine 1.8 H Est GFR ( Amer) 52 Est GFR (Non-Af Amer) 43 POC Glucose (mg/dL) Random Glucose 128 H Calcium 7.5 L Phosphorus 3.0 Magnesium 2.9 H Total Bilirubin 3.9 H AST 515 H D ALT 283 H Alkaline Phosphatase 66 Total Protein 6.0 L Albumin 3.3 L Globulin 2.7 Albumin/Globulin Ratio 1.2 Urine Color Urine Clarity Urine pH Ur Specific [place] Urine Protein Urine Glucose (UA) Urine Ketones Urine Blood Urine Nitrate Urine Bilirubin Urine Urobilinogen Ur Leukocyte Esterase Urine WBC (Auto) Urine RBC (Auto) 08/09/18 08/09/18 08/09/18 06:02 11:11 11:40 WBC RBC Hgb Hct MCV MCH MCHC RDW Plt Count MPV Neut % (Auto) Lymph % (Auto) [place] % (Auto) Eos % (Auto) Baso % (Auto) Neut # (Auto) Lymph # (Auto) [place] # (Auto) Eos # (Auto) Baso # (Auto) PT 28.2 H D INR 2.6 D APTT 70.8 H D Puncture Site Rra pCO2 36 pO2 103 H HCO3 29.2 H ABG pH 7.51 H ABG Total CO2 29.8 H ABG O2 Saturation 99.4 H ABG Base Excess 5.5 H ABG Hemoglobin 11.6 L ABG Carboxyhemoglobin 2.0 H POC ABG HHb (Measured) 0.6 ABG Methemoglobin 0.8 Reyes Test Po A-a O2 Difference 2.0 Respiratory Index 0 Hgb O2 Saturation 96.6 FiO2 21.0 Sodium Potassium Chloride Carbon Dioxide Anion Gap BUN Creatinine Est GFR ( Amer) Est GFR (Non-Af Amer) POC Glucose (mg/dL) Random Glucose Calcium Phosphorus Magnesium Total Bilirubin AST ALT Alkaline Phosphatase Total Protein Albumin Globulin Albumin/Globulin Ratio Urine Color [place] Urine Clarity Clear Urine pH 6.0 Ur Specific Car[place] 1.017 Urine Protein Negative Urine Glucose (UA) Normal Urine Ketones Negative Urine Blood 1+ H Urine Nitrate Negative Urine Bilirubin Negative Urine Urobilinogen 4.0 Ur Leukocyte Esterase Trace Urine WBC (Auto) 4 Urine RBC (Auto) 7 H Critical Care Progress Note - Nutrition Nutrition: Nutrition Category Date Time Status Diabetic [Consistent Carbohydrate] [DIET] Diets 08/08/18 Dinner Active Attending/Attestation - Attestation I have personally seen and examined this patient.: Yes I have fully participated in the care of the patient.: Yes I have reviewed all pertinent clinical information: Yes Notes (Text): 08/09/18 17:19 Patient seen and examined in the intensive care unit. Case discussed with housestaff in the morning rounds. Patient is alert oriented x3 Slowly improving Status post thrombolytic therapy Continue heparin drip and start non-vitamin K antagonists oral anticoagulants once renal function improves Renal function improving on gentle hydration EPS consult for possible AICD
[2018-08-09 11:14] LABS: ABG ALLEN TEST PO; ARTERIAL BLOOD GAS HCO3 29.2 mmol/L (21-28); ARTERIAL BLOOD GAS HEMOGLOBIN 11.6 g/dL (11.7-17.4); ARTERIAL BLOOD GAS O2 SAT 99.4 % (95-98); ARTERIAL BLOOD GAS PCO2 36 mm/Hg (35-45); ARTERIAL BLOOD GAS PH 7.51 (7.35-7.45); ARTERIAL BLOOD GAS PO2 103 mm/Hg (80-100); ARTERIAL BLOOD GAS TCO2 29.8 mmol/L (22-28)
[2018-08-09 12:17] LABS: URINE BILIRUBIN NEGATIVE (NEGATIVE); URINE BLOOD 1+ (NEGATIVE); URINE CLARITY Clear (Clear); URINE COLOR Amber (YELLOW); URINE GLUCOSE (UA) NORMAL (Normal); URINE PROTEIN NEGATIVE (NEGATIVE)
[2018-08-09 12:21] LABS: URINE LEUKOCYTE ESTERASE TRACE Leu/uL (Negative)
--- NOTE | 2018-08-09 12:42 | CP.PCM.PN ---
<Jeromy Duncan - Last Filed: 08/09/18 13:30> Subjective - Date & Time of Evaluation Date of Evaluation: 08/09/18 Time of Evaluation: 12:40 - Subjective Subjective: PGY2 Cardiology Note for Dr. Mccarty Patient was seen and examined this morning at bedside. This morning at bedside. Patient had IVC filter successfully placed yesterday. He reports some mild shortness of breathing this morning but is otherwise feeling well. He denies any fevers, chills, nausea, vomiting, chest pain, lightheadedness, dizziness or palpitations. Objective - Vital Signs/Intake and Output Vital Signs (last 24 hours): Temp Pulse Resp BP Pulse Ox 97.7 F 101 H 8 L 105/66 99 08/09/18 12:00 08/09/18 12:00 08/09/18 12:00 08/09/18 11:22 08/09/18 12:00 Intake and Output: 08/09/18 08/09/18 06:59 18:59 Intake Total 1086.7 983.4 Output Total 1800 475 Balance -713.3 508.4 - Medications Medications: Current Medications Aspirin (Aspirin Chewable) 81 mg PO DAILY [facility] Last Admin: 08/09/18 09:31 Dose: 81 mg Carvedilol (Coreg) 6.25 mg PO BID [facility] Last Admin: 08/09/18 09:31 Dose: 6.25 mg Folic Acid (Folic Acid) 1 mg PO DAILY [facility] Last Admin: 08/09/18 09:31 Dose: 1 mg Heparin Sodium/Sodium Chloride (Heparin 33181 Units/250ml 1/2 Normal Saline) 25,000 units in 250 mls @ 8.91 mls/hr IV .Q24H PRN; Protocol PRN Reason: ADJUST RATE PER PROTOCOL Last Admin: 08/09/18 09:40 Dose: 9 units/kg/hr, 8.91 mls/hr Sodium Chloride (Sodium Chloride 0.9%) 500 mls @ 60 mls/hr IV .Q8H20M [facility] Pantoprazole Sodium (Protonix Ec Tab) 40 mg PO DAILY [facility] Last Admin: 08/09/18 09:31 Dose: 40 mg Rosuvastatin Calcium (Crestor) 5 mg PO QPM [facility] Last Admin: 08/07/18 17:51 Dose: 5 mg Thiamine HCl (Vitamin B1 Tab) 100 mg PO DAILY [facility] Last Admin: 08/09/18 09:31 Dose: 100 mg - Labs Labs: 08/09/18 06:02 08/09/18 06:02 PT 28.2 SECONDS (9.7-12.2) H D 08/09/18 06:02 INR 2.6 D 08/09/18 06:02 APTT 70.8 SECONDS (21-34) H D 08/09/18 06:02 - Additional Findings Additional findings: - Constitutional Appears: Non-toxic, No Acute Distress - Head Exam Head Exam: ATRAUMATIC, NORMOCEPHALIC - Eye Exam Eye Exam: EOMI, Normal appearance Pupil Exam: PERRL - ENT Exam ENT Exam: Mucous Membranes Moist - Neck Exam Neck Exam: Normal Inspection. absent: Lymphadenopathy - Respiratory Exam Respiratory Exam: Decreased Breath Sounds, NORMAL BREATHING PATTERN. absent: Accessory Muscle Use, Rhonchi, Wheezes, Respiratory Distress - Cardiovascular Exam Cardiovascular Exam: REGULAR RHYTHM, +S1, +S2 - GI/Abdominal Exam GI & Abdominal Exam: Soft, Normal Bowel Sounds. absent: Distended, Firm, Guarding, Rigid, Rebound - Extremities Exam Extremities Exam: Positive for: Normal Inspection, NORMAL PULSES. Negative for: Edema, CALF TENDERNESS - Neurological Exam Neurological Exam: Alert, Awake, Oriented x3 - Psychiatric Exam Psychiatric exam: Normal Affect, Normal Mood Assessment and Plan - Assessment and Plan (Free Text) Plan: Systolic Heart Failure Nonischemic Cardiomyopathy Paroxysmal Vtach EP Final Touch Up Painter consulted, Dr. Jones, * Consult for AICD placement evaluation * He has persistently decreased LVEF (first seen on ECHO 08/19/17, EF <15%) * Patient experienced multiple events of non-sustained Vtach throughout the night of 08/08 to morning of 08/09. * Patient has not been a good candidate for heart transplant or life vest due to non compliance in the past. Medications: * Aspirin 81 mg PO daily * Heparin drip * Coreg 6.25 mg BID - increased to 12.5mg BID * Crestor 5 mg PO daily * Hold Lasix and Hussein due to JENI Pulmonary Embolism Thrombus in Right Atrium (resolved) Thrombus in Left Ventricle DVT - left leg Vascular Surgery consulted, Dr. Alvares * s/p IVC filter placed on 08/08/2018 CTA Chest: Filling defect arising within distal R main pulmonary artery involving distal pulmonary artery branches. No evidence of saddle embolus. ECHO on 08/06 showed thrombus in Right Atrium and LV. Likely two separate processes. * tPa was given on 08/07. Repeat ECHO on 08/08 showed persistent clot attached to LV wall, but resolution of thrombus in right ventricle. * Patient will need bubble study to r/o shunt once clots are resolved and he is more stable. Lower Extremity Doppler * Left: acute DVT of the left distal popliteal, posterior tibial and peroneal veins, with moderate reduction of the venous return. Pulsatile venous flow n oted of the left side. * Right: No evidence of deep or superficial vein thrombosis of the right lower extremity. Pulsatile venous flow noted of the right side. Patient will need to be continued on anti-coagulation therapy upon discharge. * Warfarin vs. Xarelto Vs. Eliquis; concern with Hx of noncompliance and ability to pay for therapy. * Discussed with patient the importance of establishing care with a PMD for continued routine maintenance upon discharge. He reports understanding and agreement. He is to follow up in the [facility] in the [facility] upon discharge. 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 Continue to monitor Hold Lasix and Hussein due to JENI Case discussed with Dr. Lul Duncan PGY2 <Alfie Mccarty - Last Filed: 08/10/18 07:57> Objective - Vital Signs/Intake and Output Vital Signs (last 24 hours): Temp Pulse Resp BP Pulse Ox 98 F 93 H 11 L 92/64 L 100 08/10/18 04:00 08/10/18 06:22 08/10/18 06:22 08/10/18 06:22 08/10/18 06:22 Intake and Output: 08/10/18 08/10/18 06:59 18:59 Intake Total 1186.8 Output Total 500 Balance 686.8 - Medications Medications: Current Medications Aspirin (Aspirin Chewable) 81 mg PO DAILY [facility] Last Admin: 08/09/18 09:31 Dose: 81 mg Carvedilol (Coreg) 12.5 mg PO BID [facility] Last Admin: 08/09/18 17:45 Dose: 12.5 mg Folic Acid (Folic Acid) 1 mg PO DAILY [facility] Last Admin: 08/09/18 09:31 Dose: 1 mg Heparin Sodium/Sodium Chloride (Heparin 43847 Units/250ml 1/2 Normal Saline) 25,000 units in 250 mls @ 8.91 mls/hr IV .Q24H PRN; Protocol PRN Reason: ADJUST RATE PER PROTOCOL Last Admin: 08/09/18 09:40 Dose: 9 units/kg/hr, 8.91 mls/hr Sodium Chloride (Sodium Chloride 0.9%) 500 mls @ 60 mls/hr IV .Q8H20M [facility] Last Admin: 08/10/18 05:25 Dose: Not Given Pantoprazole Sodium (Protonix Ec Tab) 40 mg PO DAILY [facility] Last Admin: 08/09/18 09:31 Dose: 40 mg Rosuvastatin Calcium (Crestor) 5 mg PO QPM [facility] Last Admin: 08/07/18 17:51 Dose: 5 mg Thiamine HCl (Vitamin B1 Tab) 100 mg PO DAILY [facility] Last Admin: 08/09/18 09:31 Dose: 100 mg - Labs Labs: 08/10/18 05:52 08/10/18 05:47 PT 28.2 SECONDS (9.7-12.2) H D 08/09/18 06:02 INR 2.6 D 08/09/18 06:02 APTT 68.3 SECONDS (21-34) H 08/10/18 05:52 Assessment and Plan - Assessment and Plan (Free Text) Plan: Patient seen, examined and evaluated personally by me. Patient has poor fpc prognosis due to severe BiVentricular failure, Bi ventricular thrombus (RA/RV thrombus resolved after tPA), Severe Pulmonary HTN, JENI, Hx of Non sustained V Tch, Hepatic insufficiency and non compliance. AICD consult with Dr. Jones Not a candidate for Amiodarone due to elevated LFTs. Continue Coreg Continue Assisted AC Hematology consult Renal f/u for JENI Will follow
[2018-08-09] MEDS ORDERED: Sodium Chloride 0.9% 250 ML IV SCH (12:45)
[2018-08-09] MEDS: Sodium Chloride 0.9% 500 ML IV SCH ×2 (13:11→21:21)
--- NOTE | 2018-08-09 13:58 | CP.PCM.PN ---
<Toribio Christopher - Last Filed: 08/09/18 14:19> Subjective - Date & Time of Evaluation Date of Evaluation: 08/09/18 Time of Evaluation: 09:00 - Subjective Subjective: Nephrology Progress note Patient seen and examined at bedside in no acute distress. States he doesn't have as much pain in his chest as he did initially. Is aware of his diagnosis but doesn't seem to be well aware with his prognosis despite being discussions with physicians. Patient states he hadn't taken his medications for about a week or two due to not having a ride to the pharmacy. Explained to patient medication compliance will be very important upon discharge. Physical Exam - Constitutional Appears: Non-toxic, No Acute Distress - Eye Exam Eye Exam: Normal appearance. absent: Scleral icterus - Respiratory Exam Respiratory Exam: Clear to Ausculation Bilateral. absent: Respiratory Distress - Cardiovascular Exam Cardiovascular Exam: RRR, +S1, +S2. absent: Gallop, Rubs - GI/Abdominal Exam GI & Abdominal Exam: Soft, Tenderness - Exam Additional comments: knight in place - Neurological Exam Neurological Exam: Alert, Awake - Psychiatric Exam Psychiatric exam: Normal Mood. absent: Agitated Objective - Vital Signs/Intake and Output Vital Signs (last 24 hours): Temp Pulse Resp BP Pulse Ox 97.7 F 101 H 8 L 105/66 99 08/09/18 12:00 08/09/18 12:00 08/09/18 12:00 08/09/18 11:22 08/09/18 12:00 Intake and Output: 08/09/18 08/09/18 06:59 18:59 Intake Total 1086.7 983.4 Output Total 1800 475 Balance -713.3 508.4 - Medications Medications: Current Medications Aspirin (Aspirin Chewable) 81 mg PO DAILY [facility] Last Admin: 08/09/18 09:31 Dose: 81 mg Carvedilol (Coreg) 6.25 mg PO BID [facility] Last Admin: 08/09/18 09:31 Dose: 6.25 mg Folic Acid (Folic Acid) 1 mg PO DAILY [facility] Last Admin: 08/09/18 09:31 Dose: 1 mg Heparin Sodium/Sodium Chloride (Heparin 09251 Units/250ml 1/2 Normal Saline) 25,000 units in 250 mls @ 8.91 mls/hr IV .Q24H PRN; Protocol PRN Reason: ADJUST RATE PER PROTOCOL Last Admin: 08/09/18 09:40 Dose: 9 units/kg/hr, 8.91 mls/hr Sodium Chloride (Sodium Chloride 0.9%) 500 mls @ 60 mls/hr IV .Q8H20M [facility] Last Admin: 08/09/18 13:11 Dose: 60 mls/hr Pantoprazole Sodium (Protonix Ec Tab) 40 mg PO DAILY [facility] Last Admin: 08/09/18 09:31 Dose: 40 mg Rosuvastatin Calcium (Crestor) 5 mg PO QPM [facility] Last Admin: 08/07/18 17:51 Dose: 5 mg Thiamine HCl (Vitamin B1 Tab) 100 mg PO DAILY [facility] Last Admin: 08/09/18 09:31 Dose: 100 mg - Labs Labs: 08/09/18 06:02 08/09/18 06:02 PT 28.2 SECONDS (9.7-12.2) H D 08/09/18 06:02 INR 2.6 D 08/09/18 06:02 APTT 70.8 SECONDS (21-34) H D 08/09/18 06:02 Assessment and Plan - Assessment and Plan (Free Text) Assessment: Acute renal failure ATN secondary to contrast nephropathy -Bicarb drip discontinued -Will start 500 mL NS@60 -Still no indication for HD as renal status is improving. Cr is now 1.8. -Avoid nephrotoxic agents; Pulmonary embolism With multiple thrombi, s/p systemic tPA administration Continue with heparin drip Congestive heart failure Severe cardiomopathy, continue to optimize with Carvedilol Continue to hold AMADO blockade until renal function stabilizes <Moses Purcell - Last Filed: 08/10/18 06:04> Objective - Vital Signs/Intake and Output Vital Signs (last 24 hours): Temp Pulse Resp BP Pulse Ox 98 F 92 H 13 99/63 L 100 08/10/18 04:00 08/10/18 04:00 08/10/18 04:00 08/10/18 04:00 08/10/18 04:00 Intake and Output: 08/09/18 08/10/18 18:59 06:59 Intake Total 1996.8 929.0 Output Total 850 300 Balance 1146.8 629.0 - Medications Medications: Current Medications Aspirin (Aspirin Chewable) 81 mg PO DAILY [facility] Last Admin: 08/09/18 09:31 Dose: 81 mg Carvedilol (Coreg) 12.5 mg PO BID [facility] Last Admin: 08/09/18 17:45 Dose: 12.5 mg Folic Acid (Folic Acid) 1 mg PO DAILY [facility] Last Admin: 08/09/18 09:31 Dose: 1 mg Heparin Sodium/Sodium Chloride (Heparin 46679 Units/250ml 1/2 Normal Saline) 25,000 units in 250 mls @ 8.91 mls/hr IV .Q24H PRN; Protocol PRN Reason: ADJUST RATE PER PROTOCOL Last Admin: 08/09/18 09:40 Dose: 9 units/kg/hr, 8.91 mls/hr Sodium Chloride (Sodium Chloride 0.9%) 500 mls @ 60 mls/hr IV .Q8H20M [facility] Last Admin: 08/09/18 21:21 Dose: Not Given Pantoprazole Sodium (Protonix Ec Tab) 40 mg PO DAILY [facility] Last Admin: 08/09/18 09:31 Dose: 40 mg Rosuvastatin Calcium (Crestor) 5 mg PO QPM [facility] Last Admin: 08/07/18 17:51 Dose: 5 mg Thiamine HCl (Vitamin B1 Tab) 100 mg PO DAILY [facility] Last Admin: 08/09/18 09:31 Dose: 100 mg - Labs Labs: 08/09/18 06:02 08/09/18 06:02 PT 28.2 SECONDS (9.7-12.2) H D 08/09/18 06:02 INR 2.6 D 08/09/18 06:02 APTT 70.8 SECONDS (21-34) H D 08/09/18 06:02 Assessment and Plan (1) Acute renal failure Status: Acute (2) Metabolic acidosis Status: Acute (3) Pulmonary embolism Status: Acute (4) Congestive heart failure Status: Chronic Attending/Attestation - Attestation I have personally seen and examined this patient.: Yes I have fully participated in the care of the patient.: Yes I have reviewed all pertinent clinical information, including history, physical exam and plan: Yes Notes (Text): Patient seen and examined; I agree with the resident's note as above with the following additions/edits: 38 yo M w/ pmh of severe cardiomyopathy, admitted with PE, multiple cardiac thrombi and acute renal failure; Acute renal failure, consistent with ATN, now resolving; no longer polyuric (400 cc UO over 5 hrs this morning); stable lytes; concern for possible intravascular volume depletion as patient was polyuric yesterday and IVF were being given cautiously considering severe cardiomyopathy; currently with mild tachycardia, BP at lower end of normal on coreg 6.25 mg bid; no JVD other sign of volume excess on exam; discussed with cardio, ok to give back some volume; Otherwise, metabolic acidosis resolved (had severe lactic acidosis) indicating hypoperfusion improved s/p tPA; bicarb drip stopped this morning; -Starting NS at 60 cc/hr; -Avoid nephrotoxic agents (should wait till renal function at baseline if cath is to be pursued); -Continue to optimize CHF status (continue B-blockers, hold AMADO blockade for now);
--- NOTE | 2018-08-09 15:19 | CARD ---
APPROVED REPORT Date of service: 08/09/2018 EXAM: LIMITED Two-dimensional and M-mode echocardiogram with Doppler and color Doppler. Other Information Quality : GoodRhythm : INDICATION Pulmonary Embolism LV Function:Systolic Thrombus 2D DIMENSIONS IVSd0.8 (0.7-1.1cm)LVDd6.7 (3.9-5.9cm) PWd1.0 (0.7-1.1cm)LVDs6.4 (2.5-4.0cm) FS (%) 4.3 %LVEF (%)9.6 (>50%) LVEF (Beltran's)13.77 % M-Mode DIMENSIONS IVSd0.79 (0.7-1.1cm)LVDd7.48 (4.0-5.6cm) PWd0.87 (0.7-1.1cm)FS (%) 5 % LVDs7.08 (2.0-3.8cm)LVEF (%)11 (>50%) Mitral Valve E/A ratio0.0 TDI E/Lateral E'0.0E/Medial E'0.0 Tricuspid Valve TR Peak [id number]/sTR Peak Gr.[id number] LEFT VENTRICLE The Left Ventricle is severely dilated. There is normal left ventricular wall thickness. The systolic function is severely impaired. Moderate to large thrombi involnig the Lequire and the postero-lateral wall with possible detached thrombus the the aortic outflow tract RIGHT VENTRICLE The right ventricle is moderately dilated. There is normal right ventricular wall thickness. RV Systolic function is severely reduced. ATRIA The left atrium is moderately dilated. The right atrium is moderately dilated. AORTIC VALVE The aortic valve is normal in structure. MITRAL VALVE The mitral valve is normal in structure. TRICUSPID VALVE There is moderate tricuspid regurgitation. There is moderate pulmonary hypertension. GREAT VESSELS The aortic root is normal in size. PERICARDIAL EFFUSION There is a small circumferential pericardial effusion. <Conclusion> The Left Ventricle is severely dilated. There is normal left ventricular wall thickness. The LV & RV systolic functions are severely impaired. Moderate to large thrombi involnig the Lequire and the postero-lateral wall , the latter is mobile with possible detached thrombus the the aortic outflow tract Compare to a stydy 2 days ago, less thrombus burden in the Left Ventricle and no thrombui in the Right atrium or upper IVC
[2018-08-09] MEDS ORDERED: Potassium Chloride 20 mEq ER Tab PO ONE (18:28)
--- NOTE | 2018-08-09 22:28 | CARD ---
APPROVED REPORT Date of service: 08/07/2018 EXAM: LIMITED Two-dimensional and M-mode echocardiogram with Doppler and color Doppler. Other Information Quality : GoodRhythm : INDICATION Pulmonary Embolism Cardiomyopathy LV Function:Systolic Thrombus 2D DIMENSIONS IVSd0.9 (0.7-1.1cm)LVDd7.0 (3.9-5.9cm) PWd0.8 (0.7-1.1cm)LVDs6.8 (2.5-4.0cm) FS (%) 2.5 %LVEF (%)5.6 (>50%) LVEF (Beltran's)15 % Mitral Valve E/A ratio0.0 TDI E/Lateral E'0.0E/Medial E'0.0 Tricuspid Valve TR Peak [id number]/sTR Peak [id number] LEFT VENTRICLE The Left Ventricle is severely dilated. There is normal left ventricular wall thickness. Left ventricle systolic function is severely impaired. The Ejection Fraction is <20%. There is severe global hypokinesis of the left ventricle. The left ventricular diastolic function is normal. There is large left ventricular mural thrombus noted. RIGHT VENTRICLE The right ventricle is mildly dilated. The right ventricular systolic function appears normal. ATRIA The left atrium is mildly dilated. The right atrium is mildly dilated. There is a a mobile density likely a thrombus noted within the R atrium AORTIC VALVE The aortic valve is trileaflet. No aortic regurgitation is present. There is no aortic valvular stenosis. There is no aortic valvular vegetation. MITRAL VALVE Mitral annular calcification is mild. There is no evidence of mitral valve prolapse. There is no mitral valve stenosis. Mitral regurgitation is mild to moderate. TRICUSPID VALVE The tricuspid valve is normal in structure. There is moderate tricuspid regurgitation. Right ventricular systolic pressure is estimated at 51 mmHg. There is moderate pulmonary hypertension. There is no tricuspid valve prolapse or vegetation. There is no tricuspid valve stenosis. PULMONIC VALVE The pulmonary valve is normal in structure. GREAT VESSELS The aortic root is normal in size. The IVC collapses <50% with inspiration. PERICARDIAL EFFUSION There is no pericardial effusion. There is no pleural effusion. <Conclusion> The Left Ventricle is severely dilated. Left ventricle systolic function is severely impaired. The Ejection Fraction is <20%. There is severe global hypokinesis of the left ventricle. There is large left ventricular mural thrombus noted. The right ventricle is mildly dilated. The right ventricular systolic function appears normal. The left atrium is mildly dilated. The right atrium is mildly dilated. There is a a mobile density likely a thrombus noted within the R atrium Mitral regurgitation is mild to moderate. There is moderate tricuspid regurgitation. There is moderate pulmonary hypertension.
[2018-08-10] MEDS: Sodium Chloride 0.9% 500 ML IV SCH ×2 (05:25→08:09)
[2018-08-10 06:05] LABS: BASO % 0.3 % (0.0-2.0); EOS % 0.1 % (0.0-4.0); HEMOGLOBIN 12.1 g/dL (12.0-18.0); LYMPH # 1.5 K/uL (1.0-4.3); MEAN CELL VOLUME 79.8 fL (80.0-94.0); MEAN CORPUSCULAR HEMOGLOBIN 25.6 pg (27.0-31.0); MEAN CORPUSCULAR HGB CONC 32.1 g/dL (33.0-37.0); MEAN PLATELET VOLUME 9.4 fL (7.2-11.7); MONO # 0.5 K/uL (0.0-0.8); MONO % 6.5 % (0.0-10.0); NEUT # 6.3 K/uL (1.8-7.0); NEUT % 75.1 % (50.0-75.0); NRBC % 0.3 % (0.0-2.0); RBC 4.73 Mil/uL (4.40-5.90); RED CELL DISTRIBUTION WIDTH 19.4 % (11.5-14.5); WHITE BLOOD COUNT 8.3 K/uL (4.8-10.8)
[2018-08-10 06:25] LABS: ALB/GLOB RATIO 1.1 (1.0-2.1); ALBUMIN 3.1 g/dL (3.5-5.0); ALT/SGPT 223 U/L (21-72); AST/SGOT 311 U/L (17-59); BLOOD UREA NITROGEN 32 mg/dL (9-20); CALCIUM 8.3 mg/dl (8.6-10.4); GFR NON-AFRICAN AMERICAN 53
--- NOTE | 2018-08-10 07:59 | CP.PCM.PN ---
Subjective - Date & Time of Evaluation Date of Evaluation: 08/08/18 Time of Evaluation: 12:10 - Subjective Subjective: Seen and examined at bedside Dyspnea CCU Objective - Vital Signs / Intake & Output Vital Signs (Last 4 hours): Vital Signs Temp Pulse Resp BP Pulse Ox 08/08/18 10:34 95 H 14 100 08/08/18 10:00 95 H 18 105/71 100 08/08/18 09:00 97 H 11 L 108/63 100 08/08/18 08:00 97.6 F 92 H 15 107/66 100 Intake and Output (Last 8hrs): Intake & Output 08/07/18 08/08/18 08/08/18 22:59 06:59 14:59 Intake Total 1360.4 817.2 378.8 Output Total 220 190 480 Balance 1140.4 627.2 -101.2 Weight 99 kg Intake: IV 0 50 Intake, IV Amount 1000.4 817.2 328.8 Right Forearm 135.4 97.2 8.8 left ac 865 720 320 Oral 360 Output: Urine 220 190 480 Urethral (Garza) 220 190 480 - Physical Exam Head: Positive for: Atraumatic, Normocephalic Pupils: Positive for: PERRL Extroacular Muscles: Positive for: EOMI Conjunctiva: Positive for: Normal Mouth: Positive for: Moist Mucous Membranes Respiratory/Chest: Positive for: Decreased Breath Sounds, Rales Cardiovascular: Positive for: Regular Rate and Rhythm, Normal S1, S2 Abdomen: Positive for: Normal Bowel Sounds. Negative for: Tenderness, Distention, Rebound, Guarding Back: Positive for: Normal Inspection Upper Extremity: Positive for: Normal Inspection. Negative for: Cyanosis, Edema Lower Extremity: Positive for: Normal Inspection, NORMAL PULSES. Negative for: Edema, CALF TENDERNESS Neurological: Positive for: CN II-XII Intact, Speech Normal Skin: Positive for: Dry, Normal Color, Cold (cool distal extremities b/l ) Psychiatric: Positive for: Alert, Oriented x 3 Objective - Vital Signs/Intake and Output Vital Signs (last 24 hours): Temp Pulse Resp BP Pulse Ox 98 F 93 H 11 L 92/64 L 100 08/10/18 04:00 08/10/18 06:22 08/10/18 06:22 08/10/18 06:22 08/10/18 06:22 Intake and Output: 08/10/18 08/10/18 06:59 18:59 Intake Total 1186.8 Output Total 500 Balance 686.8 - Medications Medications: Current Medications Aspirin (Aspirin Chewable) 81 mg PO DAILY [facility] Last Admin: 08/09/18 09:31 Dose: 81 mg Carvedilol (Coreg) 12.5 mg PO BID [facility] Last Admin: 08/09/18 17:45 Dose: 12.5 mg Folic Acid (Folic Acid) 1 mg PO DAILY [facility] Last Admin: 08/09/18 09:31 Dose: 1 mg Heparin Sodium/Sodium Chloride (Heparin 95044 Units/250ml 1/2 Normal Saline) 25,000 units in 250 mls @ 8.91 mls/hr IV .Q24H PRN; Protocol PRN Reason: ADJUST RATE PER PROTOCOL Last Admin: 08/09/18 09:40 Dose: 9 units/kg/hr, 8.91 mls/hr Sodium Chloride (Sodium Chloride 0.9%) 500 mls @ 60 mls/hr IV .Q8H20M [facility] Last Admin: 08/10/18 05:25 Dose: Not Given Pantoprazole Sodium (Protonix Ec Tab) 40 mg PO DAILY [facility] Last Admin: 08/09/18 09:31 Dose: 40 mg Rosuvastatin Calcium (Crestor) 5 mg PO QPM [facility] Last Admin: 08/07/18 17:51 Dose: 5 mg Thiamine HCl (Vitamin B1 Tab) 100 mg PO DAILY [facility] Last Admin: 08/09/18 09:31 Dose: 100 mg - Labs Labs: 08/10/18 05:52 08/10/18 05:47 PT 28.2 SECONDS (9.7-12.2) H D 08/09/18 06:02 INR 2.6 D 08/09/18 06:02 APTT 68.3 SECONDS (21-34) H 08/10/18 05:52 Assessment and Plan - Assessment and Plan (Free Text) Assessment: 38 yo male with pmhx of severe systolic and diastolic heart failure with edema, nonischemic cardiomyopathy, medication noncompliance, HTN, HLD presenting to ED with acute DVT/PE. Plan: Neuro -alert and oriented x3 Pulm -decreased breath sounds -CXR (08/07): no acute findings -Duplex LE: acute L leg DVT -CTA chest: Filling defect arising within distal R main pulmonary artery involving distal pulmonary artery branches. No evidence of saddle embolus. -heparin gtt -ASA 81 mg PO daily CV -HFrEF, nonischemic cardiomyopathy -large thrombus noted in RA in transit s/p alteplase -lasix, lisinopril held given JENI, acidosis -c/w coreg, aldactone Heme -PTT >400, heparin gtt currently held -titrate down and resume per protocol Endo -BG 51 Am, pt NPO for IVC filter -D5W started @ 80 cc/hr GI -protonix 40 mg IVP daily Renal -BUN/Cr increase to 45/2.8 -Nephrology on case -plan for HD catheter today ID -no acute issues PPx, Diet, Disposition -DVT: heparin gtt -GI: protonix -Diet: NPO
--- NOTE | 2018-08-10 08:24 | CP.CCUPN ---
CCU Subjective - Physician Review Events Since Last Encounter (Free Text): 08/10/18 08:24 Patient is a 38-year-old male with a history of systolic heart failure, ejection fraction is 13%, nonischemic cardiomyopathy, hypertension, hyperlipidemia admitted to the hospital with chronic worsening heart failure. Patient has a history of heavy smoking in the past. Patient admitted to the ICU with acute left leg DVT and also pulmonary embolism. Patient underwent IVC filter on 08/08/2018. Also the same time patient also received a TPA for biventricular thrombus. Patient now awake and responding. Comfortable. He is not in any distress. Vital signs are stable. On examination Chest bilateral good air entry, regular heart sounds noted. Abdominal tenderness negative. Edema in the legs noted Today's labs reviewed Nonspecific. Chemistry nonspecific. Improving creatinine level noted Also liver enzymes are improving at this time. Assessment and recommendation: Patient is a 38-year-old male with a history of severe end-stage heart disease with a severe systolic heart failure. Overall prognosis very poor. DVT on anticoagulation. Status post IVC filter. Acute on chronic renal insufficiency Cardiology evaluation and consultation follow-up continued. Heart failure treatment medications optimized. CCU Objective - Vital Signs / Intake & Output Vital Signs (Last 4 hours): Vital Signs Temp Pulse Resp BP Pulse Ox 08/10/18 08:00 96.5 F L 08/10/18 07:22 92 H 16 102/71 100 08/10/18 07:00 96 H 12 100 08/10/18 06:22 93 H 11 L 92/64 L 100 08/10/18 06:00 94 H 15 100 08/10/18 05:22 101/68 08/10/18 05:00 92 H 13 100 Intake and Output (Last 8hrs): Intake & Output 08/09/18 08/10/18 08/10/18 22:59 06:59 14:59 Intake Total 791.2 911.2 137.8 Output Total 250 475 Balance 541.2 436.2 137.8 Weight 217 lb 0.133 oz Intake: Intake, IV Amount 551.2 551.2 137.8 Left Distal Port 480 480 120 Antecubital left ac 71.2 71.2 17.8 Oral 240 360 Output: Urine 250 475 Urethral (Garza) 225 Urine, Voided 25 475 Other: # Voids Urine, Voided 0 0 0 # Bowel Movements 1 0 0 - Physical Exam Head: Positive for: Atraumatic, Normocephalic Pupils: Positive for: PERRL Extroacular Muscles: Positive for: EOMI Conjunctiva: Positive for: Normal Mouth: Positive for: Moist Mucous Membranes Respiratory/Chest: Positive for: Decreased Breath Sounds, Rales Cardiovascular: Positive for: Regular Rate and Rhythm, Normal S1, S2 Abdomen: Positive for: Normal Bowel Sounds. Negative for: Tenderness, Distention, Rebound, Guarding Back: Positive for: Normal Inspection Upper Extremity: Positive for: Normal Inspection. Negative for: Cyanosis, Edema Lower Extremity: Positive for: Normal Inspection, NORMAL PULSES. Negative for: Edema, CALF TENDERNESS Neurological: Positive for: CN II-XII Intact, Speech Normal Skin: Positive for: Dry, Normal Color, Cold (cool distal extremities b/l ) Psychiatric: Positive for: Alert, Oriented x 3 - Medications Active Medications: Active Medications Generic Name Dose Route Start Last Admin Trade Name Freq PRN Reason Stop Dose Admin Aspirin 81 mg 08/07/18 10:00 08/09/18 09:31 Aspirin Chewable PO 81 mg DAILY JACKELIN Administration Carvedilol 12.5 mg 08/09/18 18:00 08/09/18 17:45 Coreg PO 12.5 mg BID JACKELIN Administration Folic Acid 1 mg 08/09/18 10:00 08/09/18 09:31 Folic Acid PO 1 mg DAILY JACKELIN Administration Heparin Sodium/Sodium Chloride 25,000 units in 250 mls @ 8.91 mls/hr 08/08/18 15:59 08/09/18 09:40 Heparin 50037 Units/250ml 1/2 Normal Saline IV 9 units/kg/hr .Q24H PRN 8.91 mls/hr ADJUST RATE PER PROTOCOL Administration Protocol 9 UNITS/KG/HR Sodium Chloride 500 mls @ 60 mls/hr 08/09/18 12:45 08/10/18 08:09 Sodium Chloride 0.9% IV 60 mls/hr .[id number] JACKELIN Administration Pantoprazole Sodium 40 mg 08/07/18 10:00 08/09/18 09:31 Protonix Ec Tab PO 40 mg DAILY JACKELIN Administration Rosuvastatin Calcium 5 mg 08/06/18 18:00 08/07/18 17:51 Crestor PO 5 mg QPM JACKELIN Administration Thiamine HCl 100 mg 08/09/18 10:00 08/09/18 09:31 Vitamin B1 Tab PO 100 mg DAILY JACKELIN Administration - Patient Studies Lab Studies: Microbiology Studies 08/07/18 14:37 Blood Culture - Preliminary Blood NO GROWTH AFTER 48 HOURS 08/07/18 14:37 Blood Culture - Preliminary Blood NO GROWTH AFTER 48 HOURS Lab Studies 08/10/18 08/10/18 08/10/18 Range/Units 05:52 05:52 05:47 WBC 8.3 (4.8-10.8) K/uL RBC 4.73 (4.40-5.90) Mil/uL Hgb 12.1 (12.0-18.0) g/dL Hct 37.8 (35.0-51.0) % MCV 79.8 L (80.0-94.0) fL MCH 25.6 L (27.0-31.0) pg MCHC 32.1 L (33.0-37.0) g/dL RDW 19.4 H (11.5-14.5) % Plt Count 227 (130-400) K/uL MPV 9.4 (7.2-11.7) fL Neut % (Auto) 75.1 H (50.0-75.0) % Lymph % (Auto) 18.0 L (20.0-40.0) % Morris % (Auto) 6.5 (0.0-10.0) % Eos % (Auto) 0.1 (0.0-4.0) % Baso % (Auto) 0.3 (0.0-2.0) % Neut # (Auto) 6.3 (1.8-7.0) K/uL Lymph # (Auto) 1.5 (1.0-4.3) K/uL [place] # (Auto) 0.5 (0.0-0.8) K/uL Eos # (Auto) 0.0 (0.0-0.7) K/uL Baso # (Auto) 0.0 (0.0-0.2) K/uL APTT 68.3 H (21-34) SECONDS Puncture Site pCO2 (35-45) mm/Hg pO2 (80-100) mm/Hg HCO3 (21-28) mmol/L ABG pH (7.35-7.45) ABG Total CO2 (22-28) mmol/L ABG O2 Saturation (95-98) % ABG Base Excess (-2.0-3.0) mmol/L ABG Hemoglobin (11.7-17.4) g/dL ABG Carboxyhemoglobin (0.5-1.5) % POC ABG HHb (Measured) (0.0-5.0) % ABG Methemoglobin (0.0-3.0) % Reyes Test A-a O2 Difference mm/Hg Respiratory Index Hgb O2 Saturation (95.0-98.0) % FiO2 % Sodium 136 (132-148) mmol/L Potassium 3.6 (3.6-5.2) mmol/L Chloride 94 L (98-107) mmol/L Carbon Dioxide 30 (22-30) mmol/L Anion Gap 15 (10-20) BUN 32 H (9-20) mg/dL Creatinine 1.5 (0.8-1.5) mg/dL Est GFR ( Amer) > 60 Est GFR (Non-Af Amer) 53 Random Glucose 104 (75-110) mg/dL Calcium 8.3 L (8.6-10.4) mg/dl Phosphorus 2.8 (2.5-4.5) mg/dL Magnesium 2.4 H (1.6-2.3) mg/dL Total Bilirubin 4.5 H (0.2-1.3) mg/dL AST 311 H D (17-59) U/L ALT 223 H D (21-72) U/L Alkaline Phosphatase 86 (38-126) U/L Total Protein 5.9 L (6.3-8.3) g/dL Albumin 3.1 L (3.5-5.0) g/dL Globulin 2.8 (2.2-3.9) gm/dL Albumin/Globulin Ratio 1.1 (1.0-2.1) Urine Color (YELLOW) Urine Clarity (Clear) Urine pH (5.0-8.0) Ur Specific [place] (1.003-1.030) Urine Protein (NEGATIVE) mg/dL Urine Glucose (UA) (Normal) mg/dL Urine Ketones (NEGATIVE) mg/dL Urine Blood (NEGATIVE) Urine Nitrate (NEGATIVE) Urine Bilirubin (NEGATIVE) Urine Urobilinogen (0.2-1.0) mg/dL Ur Leukocyte Esterase (Negative) Martinez/uL Urine WBC (Auto) (0-5) /hpf Urine RBC (Auto) (0-3) /hpf 08/09/18 08/09/18 Range/Units 11:40 11:11 WBC (4.8-10.8) K/uL RBC (4.40-5.90) Mil/uL Hgb (12.0-18.0) g/dL Hct (35.0-51.0) % MCV (80.0-94.0) fL MCH (27.0-31.0) pg MCHC (33.0-37.0) g/dL RDW (11.5-14.5) % Plt Count (130-400) K/uL MPV (7.2-11.7) fL Neut % (Auto) (50.0-75.0) % Lymph % (Auto) (20.0-40.0) % [place] % (Auto) (0.0-10.0) % Eos % (Auto) (0.0-4.0) % Baso % (Auto) (0.0-2.0) % Neut # (Auto) (1.8-7.0) K/uL Lymph # (Auto) (1.0-4.3) K/uL [place] # (Auto) (0.0-0.8) K/uL Eos # (Auto) (0.0-0.7) K/uL Baso # (Auto) (0.0-0.2) K/uL APTT (21-34) SECONDS Puncture Site Rra pCO2 36 (35-45) mm/Hg pO2 103 H (80-100) mm/Hg HCO3 29.2 H (21-28) mmol/L ABG pH 7.51 H (7.35-7.45) ABG Total CO2 29.8 H (22-28) mmol/L ABG O2 Saturation 99.4 H (95-98) % ABG Base Excess 5.5 H (-2.0-3.0) mmol/L ABG Hemoglobin 11.6 L (11.7-17.4) g/dL ABG Carboxyhemoglobin 2.0 H (0.5-1.5) % POC ABG HHb (Measured) 0.6 (0.0-5.0) % ABG Methemoglobin 0.8 (0.0-3.0) % Reyes Test Po A-a O2 Difference 2.0 mm/Hg Respiratory Index 0 Hgb O2 Saturation 96.6 (95.0-98.0) % FiO2 21.0 % Sodium (132-148) mmol/L Potassium (3.6-5.2) mmol/L Chloride (98-107) mmol/L Carbon Dioxide (22-30) mmol/L Anion Gap (10-20) BUN (9-20) mg/dL Creatinine (0.8-1.5) mg/dL Est GFR ( Amer) Est GFR (Non-Af Amer) Random Glucose (75-110) mg/dL Calcium (8.6-10.4) mg/dl Phosphorus (2.5-4.5) mg/dL Magnesium (1.6-2.3) mg/dL Total Bilirubin (0.2-1.3) mg/dL AST (17-59) U/L ALT (21-72) U/L Alkaline Phosphatase (38-126) U/L Total Protein (6.3-8.3) g/dL Albumin (3.5-5.0) g/dL Globulin (2.2-3.9) gm/dL Albumin/Globulin Ratio (1.0-2.1) Urine Color [place] (YELLOW) Urine Clarity Clear (Clear) Urine pH 6.0 (5.0-8.0) Ur Specific [place] 1.017 (1.003-1.030) Urine Protein Negative (NEGATIVE) mg/dL Urine Glucose (UA) Normal (Normal) mg/dL Urine Ketones Negative (NEGATIVE) mg/dL Urine Blood 1+ H (NEGATIVE) Urine Nitrate Negative (NEGATIVE) Urine Bilirubin Negative (NEGATIVE) Urine Urobilinogen 4.0 (0.2-1.0) mg/dL Ur Leukocyte Esterase Trace (Negative) Martinez/uL Urine WBC (Auto) 4 (0-5) /hpf Urine RBC (Auto) 7 H (0-3) /hpf Laboratory Results - last 24 hr 08/09/18 08/09/18 08/10/18 11:11 11:40 05:47 WBC RBC Hgb Hct MCV MCH MCHC RDW Plt Count MPV Neut % (Auto) Lymph % (Auto) Morris % (Auto) Eos % (Auto) Baso % (Auto) Neut # (Auto) Lymph # (Auto) Morris # (Auto) Eos # (Auto) Baso # (Auto) APTT Puncture Site Rra pCO2 36 pO2 103 H HCO3 29.2 H ABG pH 7.51 H ABG Total CO2 29.8 H ABG O2 Saturation 99.4 H ABG Base Excess 5.5 H ABG Hemoglobin 11.6 L ABG Carboxyhemoglobin 2.0 H POC ABG HHb (Measured) 0.6 ABG Methemoglobin 0.8 Reyes Test Po A-a O2 Difference 2.0 Respiratory Index 0 Hgb O2 Saturation 96.6 FiO2 21.0 Sodium 136 Potassium 3.6 Chloride 94 L Carbon Dioxide 30 Anion Gap 15 BUN 32 H Creatinine 1.5 Est GFR ( Amer) > 60 Est GFR (Non-Af Amer) 53 Random Glucose 104 Calcium 8.3 L Phosphorus 2.8 Magnesium 2.4 H Total Bilirubin 4.5 H AST 311 H D ALT 223 H D Alkaline Phosphatase 86 Total Protein 5.9 L Albumin 3.1 L Globulin 2.8 Albumin/Globulin Ratio 1.1 Urine Color [place] Urine Clarity Clear Urine pH 6.0 Ur Specific [place] 1.017 Urine Protein Negative Urine Glucose (UA) Normal Urine Ketones Negative Urine Blood 1+ H Urine Nitrate Negative Urine Bilirubin Negative Urine Urobilinogen 4.0 Ur Leukocyte Esterase Trace Urine WBC (Auto) 4 Urine RBC (Auto) 7 H 08/10/18 08/10/18 05:52 05:52 WBC 8.3 RBC 4.73 Hgb 12.1 Hct 37.8 MCV 79.8 L MCH 25.6 L MCHC 32.1 L RDW 19.4 H Plt Count 227 MPV 9.4 Neut % (Auto) 75.1 H Lymph % (Auto) 18.0 L Morris % (Auto) 6.5 Eos % (Auto) 0.1 Baso % (Auto) 0.3 Neut # (Auto) 6.3 Lymph # (Auto) 1.5 Morris # (Auto) 0.5 Eos # (Auto) 0.0 Baso # (Auto) 0.0 APTT 68.3 H Puncture Site pCO2 pO2 HCO3 ABG pH ABG Total CO2 ABG O2 Saturation ABG Base Excess ABG Hemoglobin ABG Carboxyhemoglobin POC ABG HHb (Measured) ABG Methemoglobin Reyes Test A-a O2 Difference Respiratory Index Hgb O2 Saturation FiO2 Sodium Potassium Chloride Carbon Dioxide Anion Gap BUN Creatinine Est GFR ( Amer) Est GFR (Non-Af Amer) Random Glucose Calcium Phosphorus Magnesium Total Bilirubin AST ALT Alkaline Phosphatase Total Protein Albumin Globulin Albumin/Globulin Ratio Urine Color Urine Clarity Urine pH Ur Specific [place]ome Urine Protein Urine Glucose (UA) Urine Ketones Urine Blood Urine Nitrate Urine Bilirubin Urine Urobilinogen Ur Leukocyte Esterase Urine WBC (Auto) Urine RBC (Auto) Critical Care Progress Note - Nutrition Nutrition: Nutrition Category Date Time Status Diabetic [Consistent Carbohydrate] [DIET] Diets 08/08/18 Dinner Active
[2018-08-10] MEDS: Pantoprazole 40 mg EC Tab PO SCH (09:29)
[2018-08-10] MEDS: Heparin25000 units/250ml 1/2NS 25,000 UNITS/250 ML BAG IV PRN (13:16)
--- NOTE | 2018-08-10 14:11 | RAD ---
Date of service: 08/10/2018 HISTORY: CHF COMPARISON: Comparison chest 08/08/2018. TECHNIQUE: 1 view obtained. FINDINGS: LUNGS: Interval improvement previously noted left lower lobe atelectasis and or infiltrate PLEURA: No significant pleural effusion identified, no pneumothorax apparent. CARDIOVASCULAR: No aortic atherosclerotic calcification present. Cardiomegaly no pulmonary vascular congestion. OSSEOUS STRUCTURES: No significant abnormalities. VISUALIZED UPPER ABDOMEN: Normal. OTHER FINDINGS: None. IMPRESSION: Interval improvement previously noted left lower lobe atelectasis and or infiltrate
[2018-08-10] MEDS ORDERED: Aluminum Hydroxide/Magnesium Hydroxide Susp (30 mL) PO ONE (14:12)
[2018-08-10 14:57] LABS: CARDIOLIPIN AB (IGA) <11 APL (<=11)
--- NOTE | 2018-08-10 16:58 | CP.PCM.CON ---
History of Present Illness - History of Present Illness History of Present Illness: COVERING DR. JONES. Patient is a 38-year-old male with a history of systolic heart failure, ejection fraction is 13%, nonischemic cardiomyopathy, hypertension, hyperlipidemia admitted to the hospital with chronic worsening heart failure. Patient has a history of heavy smoking in the past. Patient was admitted to the ICU with acute left leg DVT and also pulmonary embolism. At the time of examination he was lying comfortably and family bed side. Not happy to about given history. Review of Systems - EENT Eyes: As Per HPI Ears: As Per HPI - Cardiovascular Cardiovascular: As Per HPI - Respiratory Respiratory: As Per HPI - Genitourinary Genitourinary: As Per HPI - Reproductive: Male Reproductive:Male: As Per HPI - Neurological Neurological: As Per HPI Past Patient History - Infectious Disease Hx of Infectious Diseases: None - Past Medical History & Family History Past Medical History?: Yes Past Family History: Reviewed and not pertinent - Past Social History Smoking Status: Former Smoker Alcohol: None Drugs: Denies Home Situation {Lives}: With Family - CARDIAC Hx Congestive Heart Failure: Yes Hx Hypertension: Yes Hx Pacemaker: Yes - PULMONARY Hx Respiratory Disorders: Yes Hx Pulmonary Edema: Yes - NEUROLOGICAL Hx Neurological Disorder: No - HEENT Hx HEENT Problems: No - RENAL Hx Chronic Kidney Disease: No - ENDOCRINE/METABOLIC Hx Endocrine Disorders: No - HEMATOLOGICAL/ONCOLOGICAL Hx Blood Disorders: No - INTEGUMENTARY Hx Dermatological Problems: No - MUSCULOSKELETAL/RHEUMATOLOGICAL Hx Musculoskeletal Disorders: No Hx Falls: No - GASTROINTESTINAL Hx Gall Bladder Disease: Yes (choleystitis) - GENITOURINARY/GYNECOLOGICAL Hx Genitourinary Disorders: No - PSYCHIATRIC Hx Substance Use: No - SURGICAL HISTORY Hx Surgeries: No - ANESTHESIA Hx Anesthesia: Yes Hx Anesthesia Reactions: No Hx Malignant Hyperthermia: No Has any member of the family had a problem w/ anesthesia?: No Meds Allergies/Adverse Reactions: Allergies Allergy/AdvReac Type Severity Reaction Status Date / Time No Known Allergies Allergy Verified 02/08/18 09:55 - Medications Medications: Current Medications Aspirin (Aspirin Chewable) 81 mg PO DAILY [facility] Last Admin: 08/10/18 09:27 Dose: 81 mg Carvedilol (Coreg) 12.5 mg PO BID [facility] Last Admin: 08/10/18 09:28 Dose: 12.5 mg Folic Acid (Folic Acid) 1 mg PO DAILY [facility] Last Admin: 08/10/18 09:28 Dose: 1 mg Heparin Sodium/Sodium Chloride (Heparin 06043 Units/250ml 1/2 Normal Saline) 25,000 units in 250 mls @ 8.91 mls/hr IV .Q24H PRN; Protocol PRN Reason: ADJUST RATE PER PROTOCOL Last Admin: 08/10/18 13:16 Dose: 9 units/kg/hr, 8.91 mls/hr Pantoprazole Sodium (Protonix Ec Tab) 40 mg PO DAILY [facility] Last Admin: 08/10/18 09:29 Dose: 40 mg Rosuvastatin Calcium (Crestor) 5 mg PO QPM [facility] Last Admin: 08/07/18 17:51 Dose: 5 mg Thiamine HCl (Vitamin B1 Tab) 100 mg PO DAILY [facility] Last Admin: 08/10/18 09:29 Dose: 100 mg Physical Exam - Head Exam Head Exam: NORMOCEPHALIC - Neck Exam Neck exam: Positive for: Normal Inspection - Respiratory Exam Respiratory Exam: NORMAL BREATHING PATTERN - Cardiovascular Exam Cardiovascular Exam: REGULAR RHYTHM - Extremities Exam Extremities exam: Positive for: normal inspection Results - Vital Signs Recent Vital Signs: Last Vital Signs Temp 96.5 F L 08/10/18 08:00 Pulse 95 H 08/10/18 14:00 Resp 23 08/10/18 14:00 BP 103/65 08/10/18 13:22 Pulse Ox 98 08/10/18 14:00 - Labs Result Diagrams: 08/10/18 05:52 08/10/18 05:47 Labs: Laboratory Results - last 24 hr 08/09/18 08/10/18 08/10/18 07:18 05:47 05:52 WBC 8.3 RBC 4.73 Hgb 12.1 Hct 37.8 MCV 79.8 L MCH 25.6 L MCHC 32.1 L RDW 19.4 H Plt Count 227 MPV 9.4 Neut % (Auto) 75.1 H Lymph % (Auto) 18.0 L [place] % (Auto) 6.5 Eos % (Auto) 0.1 Baso % (Auto) 0.3 Neut # (Auto) 6.3 Lymph # (Auto) 1.5 [place] # (Auto) 0.5 Eos # (Auto) 0.0 Baso # (Auto) 0.0 APTT Sodium 136 Potassium 3.6 Chloride 94 L Carbon Dioxide 30 Anion Gap 15 BUN 32 H Creatinine 1.5 Est GFR ( Amer) > 60 Est GFR (Non-Af Amer) 53 Random Glucose 104 Calcium 8.3 L Phosphorus 2.8 Magnesium 2.4 H Total Bilirubin 4.5 H AST 311 H D ALT 223 H D Alkaline Phosphatase 86 Total Protein 5.9 L Albumin 3.1 L Globulin 2.8 Albumin/Globulin Ratio 1.1 Anti-Cardiolipin IgG Ab <14 Anti-Cardiolipin IgA Ab <11 Anti-Cardiolipin IgM Ab <12 08/10/18 05:52 WBC RBC Hgb Hct MCV MCH MCHC RDW Plt Count MPV Neut % (Auto) Lymph % (Auto) [place] % (Auto) Eos % (Auto) Baso % (Auto) Neut # (Auto) Lymph # (Auto) [place] # (Auto) Eos # (Auto) Baso # (Auto) APTT 68.3 H Sodium Potassium Chloride Carbon Dioxide Anion Gap BUN Creatinine Est GFR ( Amer) Est GFR (Non-Af Amer) Random Glucose Calcium Phosphorus Magnesium Total Bilirubin AST ALT Alkaline Phosphatase Total Protein Albumin Globulin Albumin/Globulin Ratio Anti-Cardiolipin IgG Ab Anti-Cardiolipin IgA Ab Anti-Cardiolipin IgM Ab Assessment & Plan (1) Chronic congestive heart failure Assessment and Plan: Patient with history of severe LV systolic dysfunction. Non-compliance is an issue. Needs compliance and Dr. Jones will decide about AICD. In the mean time Fluid restriction with electrolyte balance. Status: Acute
--- NOTE | 2018-08-10 22:22 | CP.PCM.PN ---
Subjective - Date & Time of Evaluation Date of Evaluation: 08/10/18 Time of Evaluation: 10:20 - Subjective Subjective: Patient seen and evaluated Denies chest pain Still has dyspnea Objective - Vital Signs/Intake and Output Vital Signs (last 24 hours): Temp Pulse Resp BP Pulse Ox 97.9 F 91 H 18 100/64 100 08/10/18 20:00 08/10/18 21:00 08/10/18 21:00 08/10/18 20:22 08/10/18 21:00 Intake and Output: 08/10/18 08/11/18 18:59 06:59 Intake Total 1076.8 306.7 Output Total 800 Balance 276.8 306.7 - Medications Medications: Current Medications Aspirin (Aspirin Chewable) 81 mg PO DAILY [facility] Last Admin: 08/10/18 09:27 Dose: 81 mg Carvedilol (Coreg) 12.5 mg PO BID [facility] Last Admin: 08/10/18 17:27 Dose: Not Given Folic Acid (Folic Acid) 1 mg PO DAILY [facility] Last Admin: 08/10/18 09:28 Dose: 1 mg Heparin Sodium/Sodium Chloride (Heparin 10986 Units/250ml 1/2 Normal Saline) 25,000 units in 250 mls @ 8.91 mls/hr IV .Q24H PRN; Protocol PRN Reason: ADJUST RATE PER PROTOCOL Last Admin: 08/10/18 13:16 Dose: 9 units/kg/hr, 8.91 mls/hr Pantoprazole Sodium (Protonix Ec Tab) 40 mg PO DAILY [facility] Last Admin: 08/10/18 09:29 Dose: 40 mg Rosuvastatin Calcium (Crestor) 5 mg PO QPM [facility] Last Admin: 08/07/18 17:51 Dose: 5 mg Thiamine HCl (Vitamin B1 Tab) 100 mg PO DAILY [facility] Last Admin: 08/10/18 09:29 Dose: 100 mg - Labs Labs: 08/10/18 05:52 08/10/18 05:47 PT 28.2 SECONDS (9.7-12.2) H D 08/09/18 06:02 INR 2.6 D 08/09/18 06:02 APTT 68.3 SECONDS (21-34) H 08/10/18 05:52
--- NOTE | 2018-08-10 23:10 | CP.PCM.PN ---
Subjective - Date & Time of Evaluation Date of Evaluation: 08/10/18 Time of Evaluation: 16:00 - Subjective Subjective: Patient reports having difficulty breathing but prefers to lie completely flat; tolerating diet; Objective - Vital Signs/Intake and Output Vital Signs (last 24 hours): Temp Pulse Resp BP Pulse Ox 97.9 F 91 H 18 100/64 100 08/10/18 20:00 08/10/18 21:00 08/10/18 21:00 08/10/18 20:22 08/10/18 21:00 Intake and Output: 08/10/18 08/11/18 18:59 06:59 Intake Total 1076.8 306.7 Output Total 800 Balance 276.8 306.7 - Medications Medications: Current Medications Aspirin (Aspirin Chewable) 81 mg PO DAILY [facility] Last Admin: 08/10/18 09:27 Dose: 81 mg Carvedilol (Coreg) 12.5 mg PO BID [facility] Last Admin: 08/10/18 17:27 Dose: Not Given Folic Acid (Folic Acid) 1 mg PO DAILY [facility] Last Admin: 08/10/18 09:28 Dose: 1 mg Heparin Sodium/Sodium Chloride (Heparin 77038 Units/250ml 1/2 Normal Saline) 25,000 units in 250 mls @ 8.91 mls/hr IV .Q24H PRN; Protocol PRN Reason: ADJUST RATE PER PROTOCOL Last Admin: 08/10/18 13:16 Dose: 9 units/kg/hr, 8.91 mls/hr Pantoprazole Sodium (Protonix Ec Tab) 40 mg PO DAILY [facility] Last Admin: 08/10/18 09:29 Dose: 40 mg Rosuvastatin Calcium (Crestor) 5 mg PO QPM [facility] Last Admin: 08/07/18 17:51 Dose: 5 mg Thiamine HCl (Vitamin B1 Tab) 100 mg PO DAILY [facility] Last Admin: 08/10/18 09:29 Dose: 100 mg - Labs Labs: 08/10/18 05:52 08/10/18 05:47 PT 28.2 SECONDS (9.7-12.2) H D 08/09/18 06:02 INR 2.6 D 08/09/18 06:02 APTT 68.3 SECONDS (21-34) H 08/10/18 05:52 - Constitutional Appears: Non-toxic, No Acute Distress - Eye Exam Eye Exam: Normal appearance - Respiratory Exam Respiratory Exam: absent: Rhonchi, Respiratory Distress Additional comments: Minimal rales at L base, otherwise clear; - Cardiovascular Exam Cardiovascular Exam: RRR, +S1, +S2. absent: Gallop, JVD, Rubs - GI/Abdominal Exam GI & Abdominal Exam: Distended, Soft - Extremities Exam Additional comments: 1-2+ b/l lower leg edema; - Neurological Exam Neurological Exam: Alert, Awake - Psychiatric Exam Psychiatric exam: Normal Mood. absent: Agitated - Skin Skin Exam: Warm. absent: Cyanosis Assessment and Plan (1) Acute renal failure Assessment & Plan: ATN, resolving; no longer polyuric, stable lytes and volume status; IVF discontinued by CCM team due to concern for volume overload with severe cardiomyopathy; continue to encourage adequate PO intake; Status: Acute (2) Metabolic acidosis Status: Resolved (3) Pulmonary embolism Assessment & Plan: Along with cardiac thrombi with concern for impending systemic embolization, continue AC indefinitely; Status: Acute (4) Congestive heart failure Assessment & Plan: Doesn't appear overtly volume overloaded despite leg edema (no JVD, lungs relatively clear); give lasix prn; Status: Chronic
[2018-08-11 05:43] LABS: BASO % 0.6 % (0.0-2.0); EOS % 0.2 % (0.0-4.0); HEMOGLOBIN 12.3 g/dL (12.0-18.0); LYMPH # 1.8 K/uL (1.0-4.3); LYMPH % 22.8 % (20.0-40.0); MEAN CORPUSCULAR HEMOGLOBIN 25.7 pg (27.0-31.0); MEAN CORPUSCULAR HGB CONC 32.1 g/dL (33.0-37.0); MEAN PLATELET VOLUME 9.5 fL (7.2-11.7); MONO # 0.6 K/uL (0.0-0.8); MONO % 8.1 % (0.0-10.0); NEUT # 5.3 K/uL (1.8-7.0); NEUT % 68.3 % (50.0-75.0); NRBC % 0.4 % (0.0-2.0); RBC 4.8 Mil/uL (4.40-5.90); RED CELL DISTRIBUTION WIDTH 19.6 % (11.5-14.5); WHITE BLOOD COUNT 7.8 K/uL (4.8-10.8)
--- NOTE | 2018-08-11 06:07 | CP.PCM.PN ---
Subjective - Date & Time of Evaluation Date of Evaluation: 08/09/18 Time of Evaluation: 08:40 - Subjective Subjective: dict Objective - Vital Signs/Intake and Output Vital Signs (last 24 hours): Temp Pulse Resp BP Pulse Ox 97.7 F 91 H 20 103/70 97 08/11/18 04:00 08/11/18 05:22 08/11/18 05:22 08/11/18 05:22 08/11/18 05:22 Intake and Output: 08/10/18 08/11/18 18:59 06:59 Intake Total 1076.8 497.9 Output Total 800 200 Balance 276.8 297.9 - Medications Medications: Current Medications Aspirin (Aspirin Chewable) 81 mg PO DAILY [facility] Last Admin: 08/10/18 09:27 Dose: 81 mg Carvedilol (Coreg) 12.5 mg PO BID [facility] Last Admin: 08/10/18 17:27 Dose: Not Given Folic Acid (Folic Acid) 1 mg PO DAILY [facility] Last Admin: 08/10/18 09:28 Dose: 1 mg Heparin Sodium/Sodium Chloride (Heparin 22559 Units/250ml 1/2 Normal Saline) 25,000 units in 250 mls @ 8.91 mls/hr IV .Q24H PRN; Protocol PRN Reason: ADJUST RATE PER PROTOCOL Last Admin: 08/10/18 13:16 Dose: 9 units/kg/hr, 8.91 mls/hr Pantoprazole Sodium (Protonix Ec Tab) 40 mg PO DAILY [facility] Last Admin: 08/10/18 09:29 Dose: 40 mg Rosuvastatin Calcium (Crestor) 5 mg PO QPM [facility] Last Admin: 08/07/18 17:51 Dose: 5 mg Thiamine HCl (Vitamin B1 Tab) 100 mg PO DAILY [facility] Last Admin: 08/10/18 09:29 Dose: 100 mg - Labs Labs: 08/11/18 05:37 08/10/18 05:47 PT 28.2 SECONDS (9.7-12.2) H D 08/09/18 06:02 INR 2.6 D 08/09/18 06:02 APTT 72.0 SECONDS (21-34) H 08/11/18 05:37
--- NOTE | 2018-08-11 06:07 | CP.PCM.PN ---
Subjective - Date & Time of Evaluation Date of Evaluation: 08/10/18 Time of Evaluation: 08:40 - Subjective Subjective: dict Objective - Vital Signs/Intake and Output Vital Signs (last 24 hours): Temp Pulse Resp BP Pulse Ox 97.7 F 91 H 20 103/70 97 08/11/18 04:00 08/11/18 05:22 08/11/18 05:22 08/11/18 05:22 08/11/18 05:22 Intake and Output: 08/10/18 08/11/18 18:59 06:59 Intake Total 1076.8 497.9 Output Total 800 200 Balance 276.8 297.9 - Medications Medications: Current Medications Aspirin (Aspirin Chewable) 81 mg PO DAILY [facility] Last Admin: 08/10/18 09:27 Dose: 81 mg Carvedilol (Coreg) 12.5 mg PO BID [facility] Last Admin: 08/10/18 17:27 Dose: Not Given Folic Acid (Folic Acid) 1 mg PO DAILY [facility] Last Admin: 08/10/18 09:28 Dose: 1 mg Heparin Sodium/Sodium Chloride (Heparin 32103 Units/250ml 1/2 Normal Saline) 25,000 units in 250 mls @ 8.91 mls/hr IV .Q24H PRN; Protocol PRN Reason: ADJUST RATE PER PROTOCOL Last Admin: 08/10/18 13:16 Dose: 9 units/kg/hr, 8.91 mls/hr Pantoprazole Sodium (Protonix Ec Tab) 40 mg PO DAILY [facility] Last Admin: 08/10/18 09:29 Dose: 40 mg Rosuvastatin Calcium (Crestor) 5 mg PO QPM [facility] Last Admin: 08/07/18 17:51 Dose: 5 mg Thiamine HCl (Vitamin B1 Tab) 100 mg PO DAILY [facility] Last Admin: 08/10/18 09:29 Dose: 100 mg - Labs Labs: 08/11/18 05:37 08/10/18 05:47 PT 28.2 SECONDS (9.7-12.2) H D 08/09/18 06:02 INR 2.6 D 08/09/18 06:02 APTT 72.0 SECONDS (21-34) H 08/11/18 05:37
--- NOTE | 2018-08-11 06:08 | CP.PCM.PN ---
Subjective - Date & Time of Evaluation Date of Evaluation: 08/11/18 Time of Evaluation: 08:40 - Subjective Subjective: dict Objective - Vital Signs/Intake and Output Vital Signs (last 24 hours): Temp Pulse Resp BP Pulse Ox 97.7 F 91 H 20 103/70 97 08/11/18 04:00 08/11/18 05:22 08/11/18 05:22 08/11/18 05:22 08/11/18 05:22 Intake and Output: 08/10/18 08/11/18 18:59 06:59 Intake Total 1076.8 497.9 Output Total 800 200 Balance 276.8 297.9 - Medications Medications: Current Medications Aspirin (Aspirin Chewable) 81 mg PO DAILY [facility] Last Admin: 08/10/18 09:27 Dose: 81 mg Carvedilol (Coreg) 12.5 mg PO BID [facility] Last Admin: 08/10/18 17:27 Dose: Not Given Folic Acid (Folic Acid) 1 mg PO DAILY [facility] Last Admin: 08/10/18 09:28 Dose: 1 mg Heparin Sodium/Sodium Chloride (Heparin 07509 Units/250ml 1/2 Normal Saline) 25,000 units in 250 mls @ 8.91 mls/hr IV .Q24H PRN; Protocol PRN Reason: ADJUST RATE PER PROTOCOL Last Admin: 08/10/18 13:16 Dose: 9 units/kg/hr, 8.91 mls/hr Pantoprazole Sodium (Protonix Ec Tab) 40 mg PO DAILY [facility] Last Admin: 08/10/18 09:29 Dose: 40 mg Rosuvastatin Calcium (Crestor) 5 mg PO QPM [facility] Last Admin: 08/07/18 17:51 Dose: 5 mg Thiamine HCl (Vitamin B1 Tab) 100 mg PO DAILY [facility] Last Admin: 08/10/18 09:29 Dose: 100 mg - Labs Labs: 08/11/18 05:37 08/10/18 05:47 PT 28.2 SECONDS (9.7-12.2) H D 08/09/18 06:02 INR 2.6 D 08/09/18 06:02 APTT 72.0 SECONDS (21-34) H 08/11/18 05:37
[2018-08-11 06:16] LABS: ALB/GLOB RATIO 1.1 (1.0-2.1); ALBUMIN 3.3 g/dL (3.5-5.0); ALT/SGPT 193 U/L (21-72); AST/SGOT 230 U/L (17-59); BLOOD UREA NITROGEN 39 mg/dL (9-20); CALCIUM 8.7 mg/dl (8.6-10.4); GFR NON-AFRICAN AMERICAN 57
[2018-08-11] MEDS ORDERED: Aluminum Hydroxide/Magnesium Hydroxide Susp (30 mL) PO ONE (08:45)
--- NOTE | 2018-08-11 08:46 | CP.CCUPN ---
CCU Subjective - Physician Review Events Since Last Encounter (Free Text): 08/11/18 08:43 Patient is a 38-year-old male with a history of systolic heart failure, ejection fraction is 13%, nonischemic cardiomyopathy, hypertension, hyperlipidemia admitted to the hospital with chronic worsening heart failure. Patient has a history of heavy smoking in the past. Patient admitted to the ICU with acute left leg DVT and also pulmonary embolism. Patient underwent IVC filter on 08/08/2018. Also the same time patient also received a TPA for biventricular thrombus. Patient yesterday was having frequent episodes of shortness of breath. He was having episodes of central apnea. He was given Lasix yesterday. Prior to that he was drinking significant amount of fluids and also receiving IV fluids. He still continues to have a some abdominal discomfort, abdominal distention. Did not have a bathroom, bowel movements yet. He is feeling less hungry On examination: Vital signs otherwise stable. Systolic blood pressures on the low side. Chest bilateral good air entry Heart sounds are regular Patient has a significant by letter anasarca edema in the legs. Reviewed the labs today. X-ray just ordered. Patient is having slight elevation of the liver enzymes most likely congestive hepatopathy. Assessment and recommendation: Patient is a 38-year-old male with a history of severe end-stage heart disease with a severe systolic heart failure. Overall prognosis very poor. DVT on anticoagulation. Status post IVC filter. Acute on chronic renal insufficiency We will start the patient on the Lasix. Closely monitor the blood pressure. Optimized heart failure treatment. Patient might need cardiac work-up including angiogram we will discuss with cardiology regarding that. We will follow the patient Patient refusing to use the BiPAP as needed CCU Objective - Vital Signs / Intake & Output Vital Signs (Last 4 hours): Vital Signs Pulse Resp BP Pulse Ox 08/11/18 07:00 86 19 100 08/11/18 06:22 88 15 92/58 L 100 08/11/18 06:00 88 15 100 08/11/18 05:22 91 H 20 103/70 97 08/11/18 05:00 89 13 100 Intake and Output (Last 8hrs): Intake & Output 08/10/18 08/11/18 08/11/18 22:59 06:59 14:59 Intake Total 351.2 191.2 8.9 Output Total 700 200 Balance -348.8 -8.8 8.9 Weight 219 lb 5.759 oz Intake: Intake, IV Amount 71.2 71.2 8.9 left ac 71.2 71.2 8.9 Oral 280 120 Output: Urine 700 200 Urethral (Garza) 500 Urine, Voided 200 200 Other: # Voids Urine, Voided 1 1 0 # Bowel Movements 0 0 0 - Physical Exam Head: Positive for: Atraumatic, Normocephalic Pupils: Positive for: PERRL Extroacular Muscles: Positive for: EOMI Conjunctiva: Positive for: Normal Mouth: Positive for: Moist Mucous Membranes Respiratory/Chest: Positive for: Decreased Breath Sounds, Rales Cardiovascular: Positive for: Regular Rate and Rhythm, Normal S1, S2 Abdomen: Positive for: Normal Bowel Sounds. Negative for: Tenderness, Distention, Rebound, Guarding Back: Positive for: Normal Inspection Upper Extremity: Positive for: Normal Inspection. Negative for: Cyanosis, Edema Lower Extremity: Positive for: Normal Inspection, NORMAL PULSES. Negative for: Edema, CALF TENDERNESS Neurological: Positive for: CN II-XII Intact, Speech Normal Skin: Positive for: Dry, Normal Color, Cold (cool distal extremities b/l ) Psychiatric: Positive for: Alert, Oriented x 3 - Medications Active Medications: Active Medications Generic Name Dose Route Start Last Admin Trade Name Freq PRN Reason Stop Dose Admin Al Hydrox/Mg Hydrox/Simethicone 30 ml 08/11/18 08:45 Maalox 30 Ml PO 08/11/18 08:46 ONCE ONE Aspirin 81 mg 08/07/18 10:00 08/10/18 09:27 Aspirin Chewable PO 81 mg DAILY [facility] Administration Carvedilol 6.25 mg 08/11/18 08:40 Coreg PO BID [facility] Folic Acid 1 mg 08/09/18 10:00 08/10/18 09:28 Folic Acid PO 1 mg DAILY [facility] Administration Furosemide 20 mg 08/11/18 10:00 Lasix IVP DAILY [facility] Heparin Sodium/Sodium Chloride 25,000 units in 250 mls @ 8.91 mls/hr 08/08/18 15:59 08/10/18 13:16 Heparin 73785 Units/250ml 1/2 Normal Saline IV 9 units/kg/hr .Q24H PRN 8.91 mls/hr ADJUST RATE PER PROTOCOL Administration Protocol 9 UNITS/KG/HR Pantoprazole Sodium 40 mg 08/07/18 10:00 08/10/18 09:29 Protonix Ec Tab PO 40 mg DAILY [facility] Administration Rosuvastatin Calcium 5 mg 08/06/18 18:00 08/07/18 17:51 Crestor PO 5 mg QPM [facility] Administration Thiamine HCl 100 mg 08/09/18 10:00 08/10/18 09:29 Vitamin B1 Tab PO 100 mg DAILY [facility] Administration - Patient Studies Lab Studies: Microbiology Studies 08/07/18 14:37 Blood Culture - Preliminary Blood NO GROWTH AFTER 3 DAYS 08/07/18 14:37 Blood Culture - Preliminary Blood NO GROWTH AFTER 3 DAYS 08/09/18 11:40 Urine Culture - Final Urine,Catheterized No Growth (<1,000 CFU/ML) Lab Studies 08/11/18 08/11/18 08/11/18 Range/Units 05:37 05:37 05:37 WBC 7.8 (4.8-10.8) K/uL RBC 4.80 (4.40-5.90) Mil/uL Hgb 12.3 (12.0-18.0) g/dL Hct 38.4 (35.0-51.0) % MCV 80.0 (80.0-94.0) fL MCH 25.7 L (27.0-31.0) pg MCHC 32.1 L (33.0-37.0) g/dL RDW 19.6 H (11.5-14.5) % Plt Count 242 (130-400) K/uL MPV 9.5 (7.2-11.7) fL Neut % (Auto) 68.3 (50.0-75.0) % Lymph % (Auto) 22.8 (20.0-40.0) % [place] % (Auto) 8.1 (0.0-10.0) % Eos % (Auto) 0.2 (0.0-4.0) % Baso % (Auto) 0.6 (0.0-2.0) % Neut # (Auto) 5.3 (1.8-7.0) K/uL Lymph # (Auto) 1.8 (1.0-4.3) K/uL [place] # (Auto) 0.6 (0.0-0.8) K/uL Eos # (Auto) 0.0 (0.0-0.7) K/uL Baso # (Auto) 0.0 (0.0-0.2) K/uL APTT 72.0 H (21-34) SECONDS Sodium 134 (132-148) mmol/L Potassium 3.8 (3.6-5.2) mmol/L Chloride 94 L (98-107) mmol/L Carbon Dioxide 26 (22-30) mmol/L Anion Gap 18 (10-20) BUN 39 H (9-20) mg/dL Creatinine 1.4 (0.8-1.5) mg/dL Est GFR ( Amer) > 60 Est GFR (Non-Af Amer) 57 Random Glucose 108 (75-110) mg/dL Calcium 8.7 (8.6-10.4) mg/dl Phosphorus 3.1 (2.5-4.5) mg/dL Magnesium 2.5 H (1.6-2.3) mg/dL Total Bilirubin 4.3 H (0.2-1.3) mg/dL AST 230 H D (17-59) U/L ALT 193 H (21-72) U/L Alkaline Phosphatase 101 (38-126) U/L Total Protein 6.3 (6.3-8.3) g/dL Albumin 3.3 L (3.5-5.0) g/dL Globulin 3.0 (2.2-3.9) gm/dL Albumin/Globulin Ratio 1.1 (1.0-2.1) Anti-Cardiolipin IgG Ab (<=14) GPL Anti-Cardiolipin IgA Ab (<=11) APL Anti-Cardiolipin IgM Ab (<=12) MPL 08/09/18 Range/Units 07:18 WBC (4.8-10.8) K/uL RBC (4.40-5.90) Mil/uL Hgb (12.0-18.0) g/dL Hct (35.0-51.0) % MCV (80.0-94.0) fL MCH (27.0-31.0) pg MCHC (33.0-37.0) g/dL RDW (11.5-14.5) % Plt Count (130-400) K/uL MPV (7.2-11.7) fL Neut % (Auto) (50.0-75.0) % Lymph % (Auto) (20.0-40.0) % [place] % (Auto) (0.0-10.0) % Eos % (Auto) (0.0-4.0) % Baso % (Auto) (0.0-2.0) % Neut # (Auto) (1.8-7.0) K/uL Lymph # (Auto) (1.0-4.3) K/uL [place] # (Auto) (0.0-0.8) K/uL Eos # (Auto) (0.0-0.7) K/uL Baso # (Auto) (0.0-0.2) K/uL APTT (21-34) SECONDS Sodium (132-148) mmol/L Potassium (3.6-5.2) mmol/L Chloride (98-107) mmol/L Carbon Dioxide (22-30) mmol/L Anion Gap (10-20) BUN (9-20) mg/dL Creatinine (0.8-1.5) mg/dL Est GFR ( Amer) Est GFR (Non-Af Amer) Random Glucose (75-110) mg/dL Calcium (8.6-10.4) mg/dl Phosphorus (2.5-4.5) mg/dL Magnesium (1.6-2.3) mg/dL Total Bilirubin (0.2-1.3) mg/dL AST (17-59) U/L ALT (21-72) U/L Alkaline Phosphatase (38-126) U/L Total Protein (6.3-8.3) g/dL Albumin (3.5-5.0) g/dL Globulin (2.2-3.9) gm/dL Albumin/Globulin Ratio (1.0-2.1) Anti-Cardiolipin IgG Ab <14 (<=14) GPL Anti-Cardiolipin IgA Ab <11 (<=11) APL Anti-Cardiolipin IgM Ab <12 (<=12) MPL Laboratory Results - last 24 hr 08/09/18 08/11/18 08/11/18 07:18 05:37 05:37 WBC 7.8 RBC 4.80 Hgb 12.3 Hct 38.4 MCV 80.0 MCH 25.7 L MCHC 32.1 L RDW 19.6 H Plt Count 242 MPV 9.5 Neut % (Auto) 68.3 Lymph % (Auto) 22.8 [place] % (Auto) 8.1 Eos % (Auto) 0.2 Baso % (Auto) 0.6 Neut # (Auto) 5.3 Lymph # (Auto) 1.8 [place] # (Auto) 0.6 Eos # (Auto) 0.0 Baso # (Auto) 0.0 APTT Sodium 134 Potassium 3.8 Chloride 94 L Carbon Dioxide 26 Anion Gap 18 BUN 39 H Creatinine 1.4 Est GFR ( Amer) > 60 Est GFR (Non-Af Amer) 57 Random Glucose 108 Calcium 8.7 Phosphorus 3.1 Magnesium 2.5 H Total Bilirubin 4.3 H AST 230 H D ALT 193 H Alkaline Phosphatase 101 Total Protein 6.3 Albumin 3.3 L Globulin 3.0 Albumin/Globulin Ratio 1.1 Anti-Cardiolipin IgG Ab <14 Anti-Cardiolipin IgA Ab <11 Anti-Cardiolipin IgM Ab <12 08/11/18 05:37 WBC RBC Hgb Hct MCV MCH MCHC RDW Plt Count MPV Neut % (Auto) Lymph % (Auto) [place] % (Auto) Eos % (Auto) Baso % (Auto) Neut # (Auto) Lymph # (Auto) [place] # (Auto) Eos # (Auto) Baso # (Auto) APTT 72.0 H Sodium Potassium Chloride Carbon Dioxide Anion Gap BUN Creatinine Est GFR ( Amer) Est GFR (Non-Af Amer) Random Glucose Calcium Phosphorus Magnesium Total Bilirubin AST ALT Alkaline Phosphatase Total Protein Albumin Globulin Albumin/Globulin Ratio Anti-Cardiolipin IgG Ab Anti-Cardiolipin IgA Ab Anti-Cardiolipin IgM Ab Radiology Impressions: Radiology Impressions Chest X-Ray 08/10/18 12:57 IMPRESSION: Interval improvement previously noted left lower lobe atelectasis and or infiltrate Critical Care Progress Note - Nutrition Nutrition: Nutrition Category Date Time Status Diabetic [Consistent Carbohydrate] [DIET] Diets 08/08/18 Dinner Active
--- NOTE | 2018-08-11 09:18 | CP.PCM.PN ---
Subjective - Date & Time of Evaluation Date of Evaluation: 08/10/18 Time of Evaluation: 10:40 - Subjective Subjective: Patient with Biventricular failure DVT, PE, Non Ische CMP s/p tPA s/p IVC filter Now on anticoagulation ICD evaluation Heart failure therapy Poor prognosis D/W the patient and the family Patient was seen and examined States breathing is somewhat better Objective - Additional Findings Additional findings: - Constitutional Appears: Non-toxic, No Acute Distress - Head Exam Head Exam: ATRAUMATIC, NORMOCEPHALIC - Eye Exam Eye Exam: EOMI, Normal appearance Pupil Exam: PERRL - ENT Exam ENT Exam: Mucous Membranes Moist - Neck Exam Neck Exam: Normal Inspection. absent: Lymphadenopathy - Respiratory Exam Respiratory Exam: Decreased Breath Sounds, NORMAL BREATHING PATTERN. absent: Accessory Muscle Use, Rhonchi, Wheezes, Respiratory Distress - Cardiovascular Exam Cardiovascular Exam: REGULAR RHYTHM, +S1, +S2 - GI/Abdominal Exam GI & Abdominal Exam: Soft, Normal Bowel Sounds. absent: Distended, Firm, Guarding, Rigid, Rebound - Extremities Exam Extremities Exam: Positive for: Normal Inspection, NORMAL PULSES. Negative for: Edema, CALF TENDERNESS - Neurological Exam Neurological Exam: Alert, Awake, Oriented x3 - Psychiatric Exam Psychiatric exam: Normal Affect, Normal Mood Assessment and Plan - Assessment and Plan (Free Text) Plan: Systolic Heart Failure Nonischemic Cardiomyopathy Paroxysmal Vtach EP Fax Machine Repairer consulted, Dr. Jones, * Consult for AICD placement evaluation * He has persistently decreased LVEF (first seen on ECHO 08/19/17, EF <15%) * Patient experienced multiple events of non-sustained Vtach throughout the night of 08/08 to morning of 08/09. * Patient has not been a good candidate for heart transplant or life vest due to non compliance in the past. Medications: * Aspirin 81 mg PO daily * Heparin drip * Coreg 6.25 mg BID - increased to 12.5mg BID * Crestor 5 mg PO daily * Lasix IV Pulmonary Embolism Thrombus in Right Atrium (resolved) Thrombus in Left Ventricle DVT - left leg Vascular Surgery consulted, Dr. Alvares * s/p IVC filter placed on 08/08/2018 CTA Chest: Filling defect arising within distal R main pulmonary artery involving distal pulmonary artery branches. No evidence of saddle embolus. ECHO on 08/06 showed thrombus in Right Atrium and LV. Likely two separate processes. * tPa was given on 08/07. Repeat ECHO on 08/08 showed persistent clot attached to LV wall, but resolution of thrombus in right ventricle. * Patient will need bubble study to r/o shunt once clots are resolved and he is more stable. Lower Extremity Doppler * Left: acute DVT of the left distal popliteal, posterior tibial and peroneal veins, with moderate reduction of the venous return. Pulsatile venous flow noted of the left side. * Right: No evidence of deep or superficial vein thrombosis of the right lower extremity. Pulsatile venous flow noted of the right side. Patient will need to be continued on anti-coagulation therapy upon discharge. * Warfarin vs. Xarelto Vs. Eliquis; concern with Hx of noncompliance * Discussed with patient the importance of establishing care with a PMD for continued routine maintenance upon discharge. He reports understanding and agreement. He is to follow up in the Clinic in the [facility] upon discharge. 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 Continue to monitor Due to Biventricular failure, DVT, PE, LV thrombus, CKD, Hepatic insufficiency, severe pulmonary HTN patient assessed as poor prognosis D/W patient and family Continue to monitor closely Objective - Vital Signs/Intake and Output Vital Signs (last 24 hours): Temp Pulse Resp BP Pulse Ox 97.7 F 91 H 12 101/71 98 08/11/18 04:00 08/11/18 09:00 08/11/18 09:00 08/11/18 08:23 08/11/18 09:00 Intake and Output: 08/11/18 08/11/18 06:59 18:59 Intake Total 506.8 26.7 Output Total 400 Balance 106.8 26.7 - Medications Medications: Current Medications Aspirin (Aspirin Chewable) 81 mg PO DAILY [facility] Last Admin: 08/10/18 09:27 Dose: 81 mg Carvedilol (Coreg) 6.25 mg PO BID [facility] Folic Acid (Folic Acid) 1 mg PO DAILY [facility] Last Admin: 08/10/18 09:28 Dose: 1 mg Furosemide (Lasix) 20 mg IVP DAILY [facility] Heparin Sodium/Sodium Chloride (Heparin 31045 Units/250ml 1/2 Normal Saline) 25,000 units in 250 mls @ 8.91 mls/hr IV .Q24H PRN; Protocol PRN Reason: ADJUST RATE PER PROTOCOL Last Admin: 08/10/18 13:16 Dose: 9 units/kg/hr, 8.91 mls/hr Pantoprazole Sodium (Protonix Ec Tab) 40 mg PO DAILY [facility] Last Admin: 08/10/18 09:29 Dose: 40 mg Rosuvastatin Calcium (Crestor) 5 mg PO QPM [facility] Last Admin: 08/07/18 17:51 Dose: 5 mg Thiamine HCl (Vitamin B1 Tab) 100 mg PO DAILY [facility] Last Admin: 08/10/18 09:29 Dose: 100 mg - Labs Labs: 08/11/18 05:37 08/11/18 05:37 PT 28.2 SECONDS (9.7-12.2) H D 08/09/18 06:02 INR 2.6 D 08/09/18 06:02 APTT 72.0 SECONDS (21-34) H 08/11/18 05:37
--- NOTE | 2018-08-11 09:41 | RAD ---
Date of service: 08/11/2018 HISTORY: CHF COMPARISON: Comparison chest 08/10/2017. TECHNIQUE: 1 view obtained. FINDINGS: LUNGS: There may be some minor left basilar atelectasis. Questionable trace effusion PLEURA: As above. No pneumothorax apparent. CARDIOVASCULAR: No aortic atherosclerotic calcification present. Cardiomegaly.. No pulmonary vascular congestion. OSSEOUS STRUCTURES: No significant abnormalities. VISUALIZED UPPER ABDOMEN: Normal. OTHER FINDINGS: None. IMPRESSION: Minor left basilar atelectasis with questionable trace left effusion cardiomegaly.
[2018-08-11] MEDS: Pantoprazole 40 mg EC Tab PO SCH (10:42)
--- NOTE | 2018-08-11 16:45 | CP.PCM.PN ---
Subjective - Date & Time of Evaluation Date of Evaluation: 08/11/18 Time of Evaluation: 16:42 - Subjective Subjective: Patient was seen and examined States breathing is somewhat better Objective - Additional Findings Additional findings: - Constitutional Appears: Non-toxic, No Acute Distress - Head Exam Head Exam: ATRAUMATIC, NORMOCEPHALIC - Eye Exam Eye Exam: EOMI, Normal appearance Pupil Exam: PERRL - ENT Exam ENT Exam: Mucous Membranes Moist - Neck Exam Neck Exam: Normal Inspection. absent: Lymphadenopathy - Respiratory Exam Respiratory Exam: Decreased Breath Sounds, NORMAL BREATHING PATTERN. absent: Accessory Muscle Use, Rhonchi, Wheezes, Respiratory Distress - Cardiovascular Exam Cardiovascular Exam: REGULAR RHYTHM, +S1, +S2 - GI/Abdominal Exam GI & Abdominal Exam: Soft, Normal Bowel Sounds. absent: Distended, Firm, Guarding, Rigid, Rebound - Extremities Exam Extremities Exam: Positive for: Normal Inspection, NORMAL PULSES. Negative for: Edema, CALF TENDERNESS - Neurological Exam Neurological Exam: Alert, Awake, Oriented x3 - Psychiatric Exam Psychiatric exam: Normal Affect, Normal Mood Assessment and Plan - Assessment and Plan (Free Text) Plan: Systolic Heart Failure Nonischemic Cardiomyopathy Paroxysmal Vtach EP Straightener And Aligner consulted, Dr. Jones, * Consult for AICD placement evaluation * He has persistently decreased LVEF (first seen on ECHO 08/19/17, EF <15%) * Patient experienced multiple events of non-sustained Vtach throughout the night of 08/08 to morning of 08/09. * Patient has not been a good candidate for heart transplant or life vest due to non compliance in the past. Medications: * Aspirin 81 mg PO daily * Heparin drip * Coreg 6.25 mg BID - increased to 12.5mg BID * Crestor 5 mg PO daily * Lasix IV Pulmonary Embolism Thrombus in Right Atrium (resolved) Thrombus in Left Ventricle DVT - left leg Vascular Surgery consulted, Dr. Alvares * s/p IVC filter placed on 08/08/2018 CTA Chest: Filling defect arising within distal R main pulmonary artery involving distal pulmonary artery branches. No evidence of saddle embolus. ECHO on 08/06 showed thrombus in Right Atrium and LV. Likely two separate processes. * tPa was given on 08/07. Repeat ECHO on 08/08 showed persistent clot attached to LV wall, but resolution of thrombus in right ventricle. * Patient will need bubble study to r/o shunt once clots are resolved and he is more stable. Lower Extremity Doppler * Left: acute DVT of the left distal popliteal, posterior tibial and peroneal veins, with moderate reduction of the venous return. Pulsatile venous flow noted of the left side. * Right: No evidence of deep or superficial vein thrombosis of the right lower extremity. Pulsatile venous flow noted of the right side. Patient will need to be continued on anti-coagulation therapy upon discharge. * Warfarin vs. Xarelto Vs. Eliquis; concern with Hx of noncompliance * Discussed with patient the importance of establishing care with a PMD for continued routine maintenance upon discharge. He reports understanding and agreement. He is to follow up in the [facility] in the [facility] upon discharge. 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 Continue to monitor Due to Biventricular failure, DVT, PE, LV thrombus, CKD, Hepatic insufficiency, severe pulmonary HTN patient assessed as poor prognosis D/W patient and family Continue to monitor closely Objective - Vital Signs/Intake and Output Vital Signs (last 24 hours): Temp Pulse Resp BP Pulse Ox 99.8 F H 84 16 96/75 L 100 08/11/18 12:00 08/11/18 16:22 08/11/18 16:22 08/11/18 16:22 08/11/18 16:22 Intake and Output: 08/11/18 08/11/18 06:59 18:59 Intake Total 506.8 89.0 Output Total 400 200 Balance 106.8 -111.0 - Medications Medications: Current Medications Aspirin (Aspirin Chewable) 81 mg PO DAILY [facility] Last Admin: 08/11/18 10:42 Dose: 81 mg Carvedilol (Coreg) 6.25 mg PO BID [facility] Last Admin: 08/11/18 10:42 Dose: 6.25 mg Folic Acid (Folic Acid) 1 mg PO DAILY [facility] Last Admin: 08/11/18 12:29 Dose: 1 mg Furosemide (Lasix) 40 mg IVP BID [facility] Last Admin: 08/11/18 10:42 Dose: 40 mg Heparin Sodium/Sodium Chloride (Heparin 78396 Units/250ml 1/2 Normal Saline) 25,000 units in 250 mls @ 8.91 mls/hr IV .Q24H PRN; Protocol PRN Reason: ADJUST RATE PER PROTOCOL Last Admin: 08/10/18 13:16 Dose: 9 units/kg/hr, 8.91 mls/hr Pantoprazole Sodium (Protonix Ec Tab) 40 mg PO DAILY [facility] Last Admin: 08/11/18 10:42 Dose: 40 mg Rosuvastatin Calcium (Crestor) 5 mg PO QPM [facility] Last Admin: 08/07/18 17:51 Dose: 5 mg Thiamine HCl (Vitamin B1 Tab) 100 mg PO DAILY [facility] Last Admin: 08/11/18 10:42 Dose: 100 mg - Labs Labs: 08/11/18 05:37 08/11/18 05:37 PT 28.2 SECONDS (9.7-12.2) H D 08/09/18 06:02 INR 2.6 D 08/09/18 06:02 APTT 72.0 SECONDS (21-34) H 08/11/18 05:37
--- NOTE | 2018-08-11 18:57 | CON ---
DATE: 08/09/2018 REASON FOR CONSULTATION: Consult for evaluation of pulmonary and DVT. HISTORY OF PRESENT ILLNESS: A 38-year-old male with a history of nonischemic cardiomyopathy, hypertension, hyperlipidemia, ejection fraction of 13%. The patient is noncompliant with the medications. Over the last month, the patient's ambulation has decreased, mostly bedridden, has not got the medication, which he ran out about two weeks ago, now got admitted with the DVT and right main pulmonary embolism. Has been already treated with thrombolytic therapy. I am called on consult for further evaluation and suggestions. PAST MEDICAL HISTORY: Significant for chronic systolic heart failure, nonischemic cardiomyopathy, hypertension, hyperlipidemia, cholecystitis, medication noncompliance. ALLERGIES: NO KNOWN DRUG ALLERGIES. SOCIAL HISTORY: Former smoker, used to smoke two packs per day, smoked for about 20 years. No more smoking. No drug abuse. Used to drink over the weekend but is not drinking at present time according to the patient. Unemployed. Financially supported by the aunt, . REVIEW OF SYSTEMS: No headaches or dizziness. No chest pain or palpitation at present time. No fever or chills. No cough or sputum. Fair appetite. No weight loss. Denies abdominal pain. No nausea, vomiting, melena, hemoptysis, or hematemesis. No dysuria or hematuria. No change in the bowel habit. No change in the color of the stool. No tingling or numbness. No localized weakness. No bone pain. PHYSICAL EXAMINATION: GENERAL: Awake, alert, and oriented, quiet, pleasant, not in acute distress. VITAL SIGNS: Temperature 97.7, pulse 100, blood pressure 105/66, and respiration 18. HEENT: Head: Normocephalic and atraumatic. Eyes: Conjunctivae pink. Sclerae white. Pupils reacting to light. Ears, nose, and throat within normal limits. LUNGS: Bibasilar rales. HEART: S1 and S2, regular. No gallop. No murmur. ABDOMEN: Soft, nondistended, and nontender. No hepatosplenomegaly. CENTRAL NERVOUS SYSTEM: No gross motor or sensory deficits. LYMPH NODES: No cervical, axillary, or inguinal lymph nodes palpable. EXTREMITIES: Edema both the lower extremities. LABORATORY DATA: WBC 11,600, neutrophils 9300, hemoglobin 12.6, platelet count is 218,000. BUN is 38, creatinine is 1.8. SGOT is 515, SGPT is 283, bilirubin is 3.9, albumin is 3.3. IMPRESSION: 1. Deep venous thrombosis and pulmonary embolism. 2. Reactive leukocytosis and neutrophilia. PLAN: The patient has a provoked thromboembolic event. The patient has cardiomyopathy, heart failure, was not ambulating for almost a month, mostly sedentary, all can cause the deep venous thrombosis leading to the pulmonary embolism. In a provoked thromboembolic event in a young male, chance of hypercoagulable state is very unlikely. The patient already had thrombolytic therapy. The patient will be anticoagulated. The patient will need anticoagulation at least for six months and may be longer. Once the patient has stopped anticoagulation after six months when the DVT and pulmonary embolism has resolved, we can do the hypercoagulable workup but chances of it being positive is very unlikely. The patient has understood that. Thank you for letting me to participate in the care of this patient, and I will follow up the patient upon discharge about six months after anticoagulation. Loly Antony MD
--- NOTE | 2018-08-11 19:43 | PN ---
DATE: 08/11/2018 SUBJECTIVE: The patient has an ejection fraction of 13% with nonischemic cardiomyopathy with dyspnea on exertion and acute kidney injury with deep venous thrombosis and pulmonary embolism. The patient is status post thrombolytic therapy given to him on 08/07/2018 and the patient also has an IVC filter done on 08/08/2018 . PHYSICAL EXAMINATION: VITAL SIGNS: Right now the patient is afebrile, blood pressure is 105/71, pulse is 95, respiratory rate 18, temperature 97.6. LUNGS: Bilateral basal crepitations. CARDIOVASCULAR: S1 and S2 present. S3 positive. ABDOMEN: Soft, nontender. Bowel sounds are positive. ASSESSMENT: 1. Deep venous thrombosis with pulmonary embolism status post thrombolytic therapy. 2. Congestive heart failure, nonischemic dilated cardiomyopathy. PLAN: Continue medical management. Monitor patient. Aris Rivas MD
--- NOTE | 2018-08-11 19:48 | PN ---
DATE: 08/11/2018 SUBJECTIVE: The patient is status post IVC filter placement. The patient's echo is consistent with multiple thrombi in the cardiac chamber status post TPA therapy. The patient is on heparin drip. The patient also has contrast-induced nephropathy. PHYSICAL EXAMINATION: VITAL SIGNS: Blood pressure 131/70, pulse 100, respiratory rate 14, and temperature 97.4. LUNGS: Bilateral basal rales. CARDIOVASCULAR: S1 and S2 regular. ABDOMEN: Soft and nontender. ASSESSMENT: 1. Dilated nonischemic cardiomyopathy. 2. Deep venous thrombosis with multiple emboli. 3. Intracardiac thrombus. PLAN: Medical management. Monitor the patient. Continue with heparin drip. Aris Rivas MD
--- NOTE | 2018-08-11 19:51 | PN ---
DATE: 08/11/2018 SUBJECTIVE: The patient's condition is unchanged. The patient is awake and alert. He is responding. He is comfortable. He denies any respiratory distress. He denies any chest pain. No nausea or vomiting. PHYSICAL EXAMINATION: VITAL SIGNS: Blood pressure is 92/64, pulse 93, respiratory rate 11, and temperature 97.5. LUNGS: Bilateral basal rales. CARDIOVASCULAR: S1 and S2 present, S3 positive. ABDOMEN: Soft and nontender. ASSESSMENT: 1. Dilated nonischemic cardiomyopathy with intracardiac thrombi. 2. Deep venous thrombosis. 3. Pulmonary embolism. PLAN: Medical management. Monitor the patient. Aris Rivas MD
[2018-08-11] MEDS: Heparin25000 units/250ml 1/2NS 25,000 UNITS/250 ML BAG IV PRN (19:59)
[2018-08-12 05:44] LABS: BASO % 0.3 % (0.0-2.0); EOS % 0.3 % (0.0-4.0); HEMOGLOBIN 11.9 g/dL (12.0-18.0); LYMPH # 1.6 K/uL (1.0-4.3); LYMPH % 20.2 % (20.0-40.0); MEAN CELL VOLUME 79.9 fL (80.0-94.0); MEAN CORPUSCULAR HEMOGLOBIN 25.2 pg (27.0-31.0); MEAN CORPUSCULAR HGB CONC 31.5 g/dL (33.0-37.0); MEAN PLATELET VOLUME 9.2 fL (7.2-11.7); MONO # 0.9 K/uL (0.0-0.8); NEUT # 5.4 K/uL (1.8-7.0); NEUT % 68.2 % (50.0-75.0); NRBC % 0.6 % (0.0-2.0); RBC 4.74 Mil/uL (4.40-5.90)
[2018-08-12 06:01] LABS: ALB/GLOB RATIO 1.5 (1.0-2.1); ALBUMIN 3.7 g/dL (3.5-5.0); ALT/SGPT 165 U/L (21-72); AST/SGOT 163 U/L (17-59); BLOOD UREA NITROGEN 41 mg/dL (9-20); CALCIUM 9.2 mg/dl (8.6-10.4); GFR NON-AFRICAN AMERICAN 53
[2018-08-12] MEDS: Pantoprazole 40 mg EC Tab PO SCH (09:43)
--- NOTE | 2018-08-12 10:40 | CP.CCUPN ---
CCU Subjective - Physician Review Subjective (Free Text): 08/12/18 10:32 PGY-1 Critical Care Progress Note for Dr. Jones Seen and examined at bedside this AM 38 yo male with pmhx of severe systolic HF, EF 13%, nonischemic cardiomyopathy, HTN, HLD, noncompliance Admitted to ICU with acute LLE DVT, PE Biventricular thrombus noted on ECHO, received tPA s/p IVC filter (08/08/18) Continues to have episodes of central apnea To give 20 mg Lasix IVP this AM, change Lasix to 20 mg IVP q8 F/u Cardiac recs, plans for possible AICD Acute on chronic renal insufficiency BUN/Cr improved, continue to monitor renal function CCU Objective - Vital Signs / Intake & Output Vital Signs (Last 4 hours): Vital Signs Temp BP Pulse Ox 08/12/18 09:43 109/81 08/12/18 08:00 97.3 F L 95 Intake and Output (Last 8hrs): Intake & Output 08/11/18 08/12/18 08/12/18 22:59 06:59 14:59 Intake Total 421.2 620.1 17.8 Output Total 700 600 Balance -278.8 20.1 17.8 Weight 100.329 kg Intake: IV 250 Intake, IV Amount 71.2 80.1 17.8 Left Forearm 8.9 left ac 71.2 71.2 17.8 Oral 100 540 Output: Urine 700 600 Urine, Voided 700 600 Other: # Bowel Movements 0 - Physical Exam Head: Positive for: Atraumatic, Normocephalic Pupils: Positive for: PERRL Extroacular Muscles: Positive for: EOMI Conjunctiva: Positive for: Normal Mouth: Positive for: Moist Mucous Membranes Respiratory/Chest: Positive for: Decreased Breath Sounds, Rales Cardiovascular: Positive for: Regular Rate and Rhythm, Normal S1, S2 Abdomen: Positive for: Normal Bowel Sounds. Negative for: Tenderness, Distention, Rebound, Guarding Back: Positive for: Normal Inspection Upper Extremity: Positive for: Normal Inspection. Negative for: Cyanosis, Edema Lower Extremity: Positive for: Normal Inspection, NORMAL PULSES. Negative for: Edema, CALF TENDERNESS Neurological: Positive for: CN II-XII Intact, Speech Normal Skin: Positive for: Dry, Normal Color, Cold (cool distal extremities b/l ) Psychiatric: Positive for: Alert, Oriented x 3 - Medications Active Medications: Active Medications Generic Name Dose Route Start Last Admin Trade Name Freq PRN Reason Stop Dose Admin Aspirin 81 mg 08/07/18 10:00 08/12/18 09:43 Aspirin Chewable PO 81 mg DAILY JACKELIN Administration Carvedilol 6.25 mg 08/11/18 08:40 08/12/18 09:42 Coreg PO 6.25 mg BID JACKELIN Administration Folic Acid 1 mg 08/09/18 10:00 08/12/18 09:47 Folic Acid PO 1 mg DAILY JACKELIN Administration Furosemide 20 mg 08/12/18 10:00 08/12/18 09:43 Lasix IVP 20 mg TID JACKELIN Administration Heparin Sodium/Sodium Chloride 25,000 units in 250 mls @ 8.91 mls/hr 08/08/18 15:59 08/11/18 19:59 Heparin 56735 Units/250ml 1/2 Normal Saline IV 9 units/kg/hr .Q24H PRN 8.91 mls/hr ADJUST RATE PER PROTOCOL Administration Protocol 9 UNITS/KG/HR Pantoprazole Sodium 40 mg 08/07/18 10:00 08/12/18 09:43 Protonix Ec Tab PO 40 mg DAILY JACKELIN Administration Rosuvastatin Calcium 5 mg 08/06/18 18:00 08/07/18 17:51 Crestor PO 5 mg QPM JACKELIN Administration Thiamine HCl 100 mg 08/09/18 10:00 08/12/18 09:42 Vitamin B1 Tab PO 100 mg DAILY JACKELIN Administration - Patient Studies Lab Studies: Microbiology Studies 08/07/18 14:37 Blood Culture - Preliminary Blood NO GROWTH AFTER 4 DAYS 08/07/18 14:37 Blood Culture - Preliminary Blood NO GROWTH AFTER 4 DAYS Lab Studies 08/12/18 08/12/18 08/12/18 Range/Units 05:36 05:36 05:36 WBC 8.0 (4.8-10.8) K/uL RBC 4.74 (4.40-5.90) Mil/uL Hgb 11.9 L (12.0-18.0) g/dL Hct 37.8 (35.0-51.0) % MCV 79.9 L (80.0-94.0) fL MCH 25.2 L (27.0-31.0) pg MCHC 31.5 L (33.0-37.0) g/dL RDW 20.0 H (11.5-14.5) % Plt Count 233 (130-400) K/uL MPV 9.2 (7.2-11.7) fL Neut % (Auto) 68.2 (50.0-75.0) % Lymph % (Auto) 20.2 (20.0-40.0) % [place] % (Auto) 11.0 H (0.0-10.0) % Eos % (Auto) 0.3 (0.0-4.0) % Baso % (Auto) 0.3 (0.0-2.0) % Neut # (Auto) 5.4 (1.8-7.0) K/uL Lymph # (Auto) 1.6 (1.0-4.3) K/uL [place] # (Auto) 0.9 H (0.0-0.8) K/uL Eos # (Auto) 0.0 (0.0-0.7) K/uL Baso # (Auto) 0.0 (0.0-0.2) K/uL APTT 62.8 H D (21-34) SECONDS Protein S Activity (70-150) % Sodium 135 (132-148) mmol/L Potassium 3.7 (3.6-5.2) mmol/L Chloride 96 L (98-107) mmol/L Carbon Dioxide 28 (22-30) mmol/L Anion Gap 16 (10-20) BUN 41 H (9-20) mg/dL Creatinine 1.5 (0.8-1.5) mg/dL Est GFR ( Amer) > 60 Est GFR (Non-Af Amer) 53 Random Glucose 101 (75-110) mg/dL Calcium 9.2 (8.6-10.4) mg/dl Phosphorus 3.8 (2.5-4.5) mg/dL Magnesium 2.3 (1.6-2.3) mg/dL Total Bilirubin 4.3 H (0.2-1.3) mg/dL AST 163 H D (17-59) U/L ALT 165 H (21-72) U/L Alkaline Phosphatase 88 (38-126) U/L Total Protein 6.2 L (6.3-8.3) g/dL Albumin 3.7 (3.5-5.0) g/dL Globulin 2.4 (2.2-3.9) gm/dL Albumin/Globulin Ratio 1.5 (1.0-2.1) 08/09/18 Range/Units 07:18 WBC (4.8-10.8) K/uL RBC (4.40-5.90) Mil/uL Hgb (12.0-18.0) g/dL Hct (35.0-51.0) % MCV (80.0-94.0) fL MCH (27.0-31.0) pg MCHC (33.0-37.0) g/dL RDW (11.5-14.5) % Plt Count (130-400) K/uL MPV (7.2-11.7) fL Neut % (Auto) (50.0-75.0) % Lymph % (Auto) (20.0-40.0) % [place] % (Auto) (0.0-10.0) % Eos % (Auto) (0.0-4.0) % Baso % (Auto) (0.0-2.0) % Neut # (Auto) (1.8-7.0) K/uL Lymph # (Auto) (1.0-4.3) K/uL [place] # (Auto) (0.0-0.8) K/uL Eos # (Auto) (0.0-0.7) K/uL Baso # (Auto) (0.0-0.2) K/uL APTT (21-34) SECONDS Protein S Activity 38 L (70-150) % Sodium (132-148) mmol/L Potassium (3.6-5.2) mmol/L Chloride (98-107) mmol/L Carbon Dioxide (22-30) mmol/L Anion Gap (10-20) BUN (9-20) mg/dL Creatinine (0.8-1.5) mg/dL Est GFR ( Amer) Est GFR (Non-Af Amer) Random Glucose (75-110) mg/dL Calcium (8.6-10.4) mg/dl Phosphorus (2.5-4.5) mg/dL Magnesium (1.6-2.3) mg/dL Total Bilirubin (0.2-1.3) mg/dL AST (17-59) U/L ALT (21-72) U/L Alkaline Phosphatase (38-126) U/L Total Protein (6.3-8.3) g/dL Albumin (3.5-5.0) g/dL Globulin (2.2-3.9) gm/dL Albumin/Globulin Ratio (1.0-2.1) Laboratory Results - last 24 hr 08/09/18 08/12/18 08/12/18 07:18 05:36 05:36 WBC 8.0 RBC 4.74 Hgb 11.9 L Hct 37.8 MCV 79.9 L MCH 25.2 L MCHC 31.5 L RDW 20.0 H Plt Count 233 MPV 9.2 Neut % (Auto) 68.2 Lymph % (Auto) 20.2 [place] % (Auto) 11.0 H Eos % (Auto) 0.3 Baso % (Auto) 0.3 Neut # (Auto) 5.4 Lymph # (Auto) 1.6 [place] # (Auto) 0.9 H Eos # (Auto) 0.0 Baso # (Auto) 0.0 APTT Protein S Activity 38 L Sodium 135 Potassium 3.7 Chloride 96 L Carbon Dioxide 28 Anion Gap 16 BUN 41 H Creatinine 1.5 Est GFR ( Amer) > 60 Est GFR (Non-Af Amer) 53 Random Glucose 101 Calcium 9.2 Phosphorus 3.8 Magnesium 2.3 Total Bilirubin 4.3 H AST 163 H D ALT 165 H Alkaline Phosphatase 88 Total Protein 6.2 L Albumin 3.7 Globulin 2.4 Albumin/Globulin Ratio 1.5 08/12/18 05:36 WBC RBC Hgb Hct MCV MCH MCHC RDW Plt Count MPV Neut % (Auto) Lymph % (Auto) [place] % (Auto) Eos % (Auto) Baso % (Auto) Neut # (Auto) Lymph # (Auto) [place] # (Auto) Eos # (Auto) Baso # (Auto) APTT 62.8 H D Protein S Activity Sodium Potassium Chloride Carbon Dioxide Anion Gap BUN Creatinine Est GFR ( Amer) Est GFR (Non-Af Amer) Random Glucose Calcium Phosphorus Magnesium Total Bilirubin AST ALT Alkaline Phosphatase Total Protein Albumin Globulin Albumin/Globulin Ratio Review of Systems - Review of Systems All systems: reviewed and no additional remarkable complaints except Review of Systems: as per HPI Critical Care Progress Note - Nutrition Nutrition: Nutrition Category Date Time Status Diabetic [Consistent Carbohydrate] [DIET] Diets 08/08/18 Dinner Active
--- NOTE | 2018-08-12 10:55 | CP.PCM.PN ---
Subjective - Date & Time of Evaluation Date of Evaluation: 08/12/18 Time of Evaluation: 10:52 - Subjective Subjective: PGY-3 for Jazmine Ayoub Pt in flat position to aide breathing. Mild pain mid-sternal/epigastric, dyspneic in nature. Had not been ambulating much. tolerating diet. Objective - Vital Signs/Intake and Output Vital Signs (last 24 hours): Temp Pulse Resp BP Pulse Ox 97.3 F L 92 H 19 109/81 95 08/12/18 08:00 08/12/18 06:23 08/12/18 06:23 08/12/18 09:43 08/12/18 08:00 Intake and Output: 08/12/18 08/12/18 06:59 18:59 Intake Total 746.8 17.8 Output Total 900 Balance -153.2 17.8 - Medications Medications: Current Medications Aspirin (Aspirin Chewable) 81 mg PO DAILY [facility] Last Admin: 08/12/18 09:43 Dose: 81 mg Carvedilol (Coreg) 6.25 mg PO BID [facility] Last Admin: 08/12/18 09:42 Dose: 6.25 mg Folic Acid (Folic Acid) 1 mg PO DAILY [facility] Last Admin: 08/12/18 09:47 Dose: 1 mg Furosemide (Lasix) 20 mg IVP Q8H [facility] Heparin Sodium/Sodium Chloride (Heparin 94332 Units/250ml 1/2 Normal Saline) 25,000 units in 250 mls @ 8.91 mls/hr IV .Q24H PRN; Protocol PRN Reason: ADJUST RATE PER PROTOCOL Last Admin: 08/11/18 19:59 Dose: 9 units/kg/hr, 8.91 mls/hr Pantoprazole Sodium (Protonix Ec Tab) 40 mg PO DAILY [facility] Last Admin: 08/12/18 09:43 Dose: 40 mg Rosuvastatin Calcium (Crestor) 5 mg PO QPM [facility] Last Admin: 08/07/18 17:51 Dose: 5 mg Thiamine HCl (Vitamin B1 Tab) 100 mg PO DAILY [facility] Last Admin: 08/12/18 09:42 Dose: 100 mg - Labs Labs: 08/12/18 05:36 08/12/18 05:36 PT 28.2 SECONDS (9.7-12.2) H D 08/09/18 06:02 INR 2.6 D 08/09/18 06:02 APTT 62.8 SECONDS (21-34) H D 08/12/18 05:36 - Constitutional Appears: No Acute Distress - Head Exam Head Exam: ATRAUMATIC, NORMAL INSPECTION, NORMOCEPHALIC - Eye Exam Eye Exam: EOMI, Normal appearance, PERRL. absent: Scleral icterus Pupil Exam: NORMAL ACCOMODATION - ENT Exam ENT Exam: Mucous Membranes Moist - Neck Exam Additional comments: supple - Respiratory Exam Respiratory Exam: Decreased Breath Sounds (b/l lung bases, mild), Clear to Ausculation Bilateral. absent: Rales, Rhonchi, Wheezes - Cardiovascular Exam Cardiovascular Exam: REGULAR RHYTHM, +S1, +S2 - GI/Abdominal Exam GI & Abdominal Exam: Soft, Normal Bowel Sounds. absent: Guarding, Rigid, Tenderness - Extremities Exam Extremities Exam: absent: Calf Tenderness - Neurological Exam Neurological Exam: Alert, Awake, Oriented x3 - Psychiatric Exam Psychiatric exam: Normal Affect, Normal Mood - Skin Skin Exam: Dry, Warm Assessment and Plan - Assessment and Plan (Free Text) Plan: Mr Love, 38 AAM, former smoker with PMHx non-ischemic cardiomyopathy (EF 13) non-compliant with life-vest, not-ambulating for a month, came in for dyspnea and dyspnic chest pain and was found to have LLE DVT, R main PE, and b-vent cardiac thrombi. He is s/p TPA and IVC (08/08), pending decision on AICD. (1) Acute renal failure ATN @ Cre 2.8 - resolving secondary to contrast nephropathy Cre stable at 1.5. Oliguria resolved. stable lytes and volume status. Continue strict i/o IVF discontinued due to concern for volume overload with severe cardiomyopathy Did not have emergent dialysis due to TPA (2) Persistent hyponatermia Margarito, Uosm (3) Pulmonary embolism on heparin gtt. Not bridging yet due to decision to AICD (4) Congestive heart failure, severe systolic, acute on chronic - improving Continue to monitor for volume overloaded leg edema resolved, no JVD, lungs no crackes On ASA, coreg give lasix prn (5) Metabolic acidosis - resolved Respiratory alkalosis likely from dyspnea due to PE - improving s/r/d/w Dr. Purcell
--- NOTE | 2018-08-12 16:17 | RAD ---
Date of service: 08/12/2018 HISTORY: r/o CHF COMPARISON: 08/10/2018 and august 11, 2018. FINDINGS: LUNGS: No active pulmonary disease. PLEURA: No significant pleural effusion identified, no pneumothorax apparent. CARDIOVASCULAR: No atherosclerotic calcification present Cardiomegaly. No evidence of acute, significant cardiovascular disease. OSSEOUS STRUCTURES: No significant abnormalities. VISUALIZED UPPER ABDOMEN: Normal. OTHER FINDINGS: None. IMPRESSION: No active disease. No significant interval change compared to the prior examination(s).
[2018-08-13] MEDS: Heparin25000 units/250ml 1/2NS 25,000 UNITS/250 ML BAG IV PRN (00:59)
--- NOTE | 2018-08-13 03:52 | CP.PCM.PN ---
Subjective - Date & Time of Evaluation Date of Evaluation: 08/12/18 Time of Evaluation: 07:00 - Subjective Subjective: dict Objective - Vital Signs/Intake and Output Vital Signs (last 24 hours): Temp Pulse Resp BP Pulse Ox 98.2 F 84 20 100/67 100 08/13/18 00:00 08/13/18 00:55 08/13/18 00:55 08/13/18 00:55 08/13/18 00:55 Intake and Output: 08/12/18 08/13/18 18:59 06:59 Intake Total 656.8 537.3 Output Total 350 450 Balance 306.8 87.3 - Medications Medications: Current Medications Aspirin (Aspirin Chewable) 81 mg PO DAILY [facility] Last Admin: 08/12/18 09:43 Dose: 81 mg Carvedilol (Coreg) 6.25 mg PO BID [facility] Last Admin: 08/12/18 17:58 Dose: 6.25 mg Folic Acid (Folic Acid) 1 mg PO DAILY [facility] Last Admin: 08/12/18 09:47 Dose: 1 mg Furosemide (Lasix) 20 mg IVP Q8H [facility]ACKELIN Last Admin: 08/12/18 17:59 Dose: 20 mg Heparin Sodium/Sodium Chloride (Heparin 28994 Units/250ml 1/2 Normal Saline) 25,000 units in 250 mls @ 8.91 mls/hr IV .Q24H PRN; Protocol PRN Reason: ADJUST RATE PER PROTOCOL Last Admin: 08/13/18 00:59 Dose: 9 units/kg/hr, 8.91 mls/hr Pantoprazole Sodium (Protonix Ec Tab) 40 mg PO DAILY [facility] Last Admin: 08/12/18 09:43 Dose: 40 mg Rosuvastatin Calcium (Crestor) 5 mg PO QPM JACKELIN Last Admin: 08/07/18 17:51 Dose: 5 mg Thiamine HCl (Vitamin B1 Tab) 100 mg PO DAILY [facility] Last Admin: 08/12/18 09:42 Dose: 100 mg - Labs Labs: 08/12/18 05:36 08/12/18 05:36 PT 28.2 SECONDS (9.7-12.2) H D 08/09/18 06:02 INR 2.6 D 08/09/18 06:02 APTT 62.8 SECONDS (21-34) H D 08/12/18 05:36
[2018-08-13 04:54] LABS: B2 GLYCOPROTEIN I AB(IGA) <9 SAU (<=20); B2 GLYCOPROTEIN I AB(IGG) <9 SGU (<=20); B2 GLYCOPROTEIN I AB(IGM) <9 SMU (<=20)
[2018-08-13 05:35] LABS: BASO # 0.1 K/uL (0.0-0.2); BASO % 0.9 % (0.0-2.0); EOS % 0.5 % (0.0-4.0); HEMOGLOBIN 12.3 g/dL (12.0-18.0); LYMPH # 2.1 K/uL (1.0-4.3); LYMPH % 22.1 % (20.0-40.0); MEAN CELL VOLUME 80.4 fL (80.0-94.0); MEAN CORPUSCULAR HEMOGLOBIN 25.2 pg (27.0-31.0); MEAN CORPUSCULAR HGB CONC 31.4 g/dL (33.0-37.0); MEAN PLATELET VOLUME 9.2 fL (7.2-11.7); MONO # 1.1 K/uL (0.0-0.8); MONO % 11.5 % (0.0-10.0); NEUT # 6.1 K/uL (1.8-7.0); NRBC % 0.6 % (0.0-2.0); RBC 4.9 Mil/uL (4.40-5.90); RED CELL DISTRIBUTION WIDTH 19.3 % (11.5-14.5); WHITE BLOOD COUNT 9.4 K/uL (4.8-10.8)
[2018-08-13 05:48] LABS: ALB/GLOB RATIO 1.2 (1.0-2.1); ALBUMIN 3.5 g/dL (3.5-5.0); ALT/SGPT 159 U/L (21-72); AST/SGOT 167 U/L (17-59); BLOOD UREA NITROGEN 48 mg/dL (9-20); CALCIUM 8.6 mg/dl (8.6-10.4); GFR NON-AFRICAN AMERICAN 53
[2018-08-13 05:53] LABS: INR 2.5; PROTHROMBIN TIME 27.9 SECONDS (9.7-12.2)
--- NOTE | 2018-08-13 06:03 | PN ---
DATE: 08/12/2018 SUBJECTIVE: The patient is feeling better. The patient has episode of central apnea. The patient received Lasix. The patient has been seen by Cardiology. The patient has an AICD, acute on chronic kidney injury, but BUN and creatinine are improving. PHYSICAL EXAMINATION: VITAL SIGNS: Blood pressure 109/81, pulse 95, respiratory rate 22, and temperature 97.3. LUNGS: Bilateral basal crepitation. CARDIOVASCULAR SYSTEM: S1, S2 plus S3 positive. ABDOMEN: Soft. ASSESSMENT: 1. Severe nonischemic cardiomyopathy. 2. Intracardiac thrombus and pulmonary embolism with deep venous thrombosis, on heparin drip. 3. Anemia. PLAN: Continue heparin drip. Monitor the patient. Aris Rivas MD
[2018-08-13 06:40] LABS: PARTIAL THROMBOPLASTIN TIME 67.9 SECONDS (21-34)
[2018-08-13 06:49] LABS: CARDIOLIPIN AB (IGA) <11 APL (<=11); CARDIOLIPIN AB (IGG) <14 GPL (<=14); CARDIOLIPIN AB (IGM) <12 MPL (<=12)
[2018-08-13] MEDS ORDERED: Phytonadione 10 mg/ml Inj (Adult) IV ONE (09:15)
[2018-08-13] MEDS: Pantoprazole 40 mg EC Tab PO SCH (09:29)
--- NOTE | 2018-08-13 09:56 | CP.CCUPN ---
<Ervin Causey - Last Filed: 08/13/18 09:57> CCU Subjective - Physician Review Subjective (Free Text): 08/13/18 09:52 PGY-1 Critical Care Progress Note for Dr. Phipps Seen and examined at bedside this AM 38 yo male with pmhx of severe systolic HF, EF 13%, nonischemic cardiomyopathy, HTN, HLD, noncompliance Admitted to ICU with acute LLE DVT, PE Biventricular thrombus noted on ECHO, received tPA s/p IVC filter (08/08/18) Remains on heparin gtt Acute on chronic renal insufficiency BUN/Cr improved, continue to monitor renal function Repeat ECHO (08/10) official report still demonstrates moderate to large thrombi involving apex and postero-lateral wall, latter being mobile with possible detached thrombus in aortic outflow tract Less thrombus burden in LV compared to prior study, no thrombi in RA or upper IVC Cardiac cath scheduled for this AM cancelled due to INR 2.5 Vitamin K 10 mg IVP x1 given Follow up further Cardiac recs (Dr. Mccarty) Follow up EPS eval for AICD (Dr. Jones) CCU Objective - Vital Signs / Intake & Output Vital Signs (Last 4 hours): Vital Signs Pulse Resp BP Pulse Ox 08/13/18 09:00 83 17 99 08/13/18 08:55 84 17 106/79 98 08/13/18 08:10 101/68 08/13/18 08:08 80 12 97 08/13/18 08:00 82 14 99 08/13/18 07:55 103/74 08/13/18 06:55 80 13 99/69 L 100 08/13/18 05:55 84 21 94/68 L 97 Intake and Output (Last 8hrs): Intake & Output 08/12/18 08/13/18 08/13/18 22:59 06:59 14:59 Intake Total 296.2 421.2 180 Output Total 500 400 180 Balance -203.8 21.2 0 Weight 100.743 kg Intake: IV 250 Intake, IV Amount 71.2 71.2 left ac 71.2 71.2 Oral 225 100 180 Output: Urine 500 400 180 Urine, Voided 500 400 180 Other: # Bowel Movements 1 - Physical Exam Head: Positive for: Atraumatic, Normocephalic Pupils: Positive for: PERRL Extroacular Muscles: Positive for: EOMI Conjunctiva: Positive for: Normal Mouth: Positive for: Moist Mucous Membranes Respiratory/Chest: Positive for: Decreased Breath Sounds, Rales Cardiovascular: Positive for: Regular Rate and Rhythm, Normal S1, S2 Abdomen: Positive for: Normal Bowel Sounds. Negative for: Tenderness, Distention, Rebound, Guarding Back: Positive for: Normal Inspection Upper Extremity: Positive for: Normal Inspection. Negative for: Cyanosis, Edema Lower Extremity: Positive for: Normal Inspection, NORMAL PULSES. Negative for: Edema, CALF TENDERNESS Neurological: Positive for: CN II-XII Intact, Speech Normal Skin: Positive for: Dry, Normal Color, Cold (cool distal extremities b/l ) Psychiatric: Positive for: Alert, Oriented x 3 - Medications Active Medications: Active Medications Generic Name Dose Route Start Last Admin Trade Name Freq PRN Reason Stop Dose Admin Aspirin 81 mg 08/07/18 10:00 08/13/18 09:28 Aspirin Chewable PO 81 mg DAILY JACKELIN Administration Carvedilol 6.25 mg 08/11/18 08:40 08/13/18 09:29 Coreg PO 6.25 mg BID JACKELIN Administration Docusate Sodium 100 mg 08/13/18 10:00 08/13/18 09:28 Colace PO 100 mg TID JACKELIN Administration Folic Acid 1 mg 08/09/18 10:00 08/13/18 09:31 Folic Acid PO 1 mg DAILY JACKELIN Administration Furosemide 20 mg 08/12/18 10:45 08/13/18 03:00 Lasix IVP Not Given Q8H [facility] Heparin Sodium/Sodium Chloride 25,000 units in 250 mls @ 8.91 mls/hr 08/08/18 15:59 08/13/18 00:59 Heparin 42400 Units/250ml 1/2 Normal Saline IV 9 units/kg/hr .Q24H PRN 8.91 mls/hr ADJUST RATE PER PROTOCOL Administration Protocol 9 UNITS/KG/HR Pantoprazole Sodium 40 mg 08/07/18 10:00 08/13/18 09:29 Protonix Ec Tab PO 40 mg DAILY JACKELIN Administration Rosuvastatin Calcium 5 mg 08/06/18 18:00 08/07/18 17:51 Crestor PO 5 mg QPM JACKELIN Administration Thiamine HCl 100 mg 08/09/18 10:00 08/13/18 09:29 Vitamin B1 Tab PO 100 mg DAILY JACKELIN Administration - Patient Studies Lab Studies: Microbiology Studies 08/07/18 14:37 Blood Culture - Final Blood NO GROWTH AFTER 5 DAYS Gram Stain - Final TEST NOT PERFORMED 08/07/18 14:37 Blood Culture - Final Blood NO GROWTH AFTER 5 DAYS Gram Stain - Final TEST NOT PERFORMED Lab Studies 08/13/18 08/13/18 08/13/18 Range/Units 05:32 05:32 05:32 WBC 9.4 (4.8-10.8) K/uL RBC 4.90 (4.40-5.90) Mil/uL Hgb 12.3 (12.0-18.0) g/dL Hct 39.4 (35.0-51.0) % MCV 80.4 (80.0-94.0) fL MCH 25.2 L (27.0-31.0) pg MCHC 31.4 L (33.0-37.0) g/dL RDW 19.3 H (11.5-14.5) % Plt Count 262 (130-400) K/uL MPV 9.2 (7.2-11.7) fL Neut % (Auto) 65.0 (50.0-75.0) % Lymph % (Auto) 22.1 (20.0-40.0) % [place] % (Auto) 11.5 H (0.0-10.0) % Eos % (Auto) 0.5 (0.0-4.0) % Baso % (Auto) 0.9 (0.0-2.0) % Neut # (Auto) 6.1 (1.8-7.0) K/uL Lymph # (Auto) 2.1 (1.0-4.3) K/uL [place] # (Auto) 1.1 H (0.0-0.8) K/uL Eos # (Auto) 0.0 (0.0-0.7) K/uL Baso # (Auto) 0.1 (0.0-0.2) K/uL PT 27.9 H (9.7-12.2) SECONDS INR 2.5 APTT 67.9 H D (21-34) SECONDS Protein S Antigen (70-140) % normal Antithrombin III Ag (80-120) % Factor V Factor V Activity (65-150) % Sodium 133 (132-148) mmol/L Potassium 4.1 (3.6-5.2) mmol/L Chloride 97 L (98-107) mmol/L Carbon Dioxide 25 (22-30) mmol/L Anion Gap 16 (10-20) BUN 48 H (9-20) mg/dL Creatinine 1.5 (0.8-1.5) mg/dL Est GFR ( Amer) > 60 Est GFR (Non-Af Amer) 53 Random Glucose 96 (75-110) mg/dL Calcium 8.6 (8.6-10.4) mg/dl Phosphorus 3.7 (2.5-4.5) mg/dL Magnesium 2.3 (1.6-2.3) mg/dL Total Bilirubin 5.0 H (0.2-1.3) mg/dL AST 167 H (17-59) U/L ALT 159 H (21-72) U/L Alkaline Phosphatase 100 (38-126) U/L Total Protein 6.6 (6.3-8.3) g/dL Albumin 3.5 (3.5-5.0) g/dL Globulin 3.0 (2.2-3.9) gm/dL Albumin/Globulin Ratio 1.2 (1.0-2.1) Beta-2 GPI IgG Ab (<=20) SGU Beta-2 GPI IgM Ab (<=20) SMU Beta-2-GPI IgA Ab (<=20) LIAT Anti-Cardiolipin IgG Ab (<=14) GPL Anti-Cardiolipin IgA Ab (<=11) APL Anti-Cardiolipin IgM Ab (<=12) MPL 08/09/18 08/09/18 08/09/18 Range/Units 07:18 07:18 07:18 WBC (4.8-10.8) K/uL RBC (4.40-5.90) Mil/uL Hgb (12.0-18.0) g/dL Hct (35.0-51.0) % MCV (80.0-94.0) fL MCH (27.0-31.0) pg MCHC (33.0-37.0) g/dL RDW (11.5-14.5) % Plt Count (130-400) K/uL MPV (7.2-11.7) fL Neut % (Auto) (50.0-75.0) % Lymph % (Auto) (20.0-40.0) % [place] % (Auto) (0.0-10.0) % Eos % (Auto) (0.0-4.0) % Baso % (Auto) (0.0-2.0) % Neut # (Auto) (1.8-7.0) K/uL Lymph # (Auto) (1.0-4.3) K/uL [place] # (Auto) (0.0-0.8) K/uL Eos # (Auto) (0.0-0.7) K/uL Baso # (Auto) (0.0-0.2) K/uL PT (9.7-12.2) SECONDS INR APTT (21-34) SECONDS Protein S Antigen 85 (70-140) % normal Antithrombin III Ag (80-120) % Factor V see note Factor V Activity 19 L (65-150) % Sodium (132-148) mmol/L Potassium (3.6-5.2) mmol/L Chloride (98-107) mmol/L Carbon Dioxide (22-30) mmol/L Anion Gap (10-20) BUN (9-20) mg/dL Creatinine (0.8-1.5) mg/dL Est GFR ( Amer) Est GFR (Non-Af Amer) Random Glucose (75-110) mg/dL Calcium (8.6-10.4) mg/dl Phosphorus (2.5-4.5) mg/dL Magnesium (1.6-2.3) mg/dL Total Bilirubin (0.2-1.3) mg/dL AST (17-59) U/L ALT (21-72) U/L Alkaline Phosphatase (38-126) U/L Total Protein (6.3-8.3) g/dL Albumin (3.5-5.0) g/dL Globulin (2.2-3.9) gm/dL Albumin/Globulin Ratio (1.0-2.1) Beta-2 GPI IgG Ab (<=20) SGU Beta-2 GPI IgM Ab (<=20) SMU Beta-2-GPI IgA Ab (<=20) LIAT Anti-Cardiolipin IgG Ab (<=14) GPL Anti-Cardiolipin IgA Ab (<=11) APL Anti-Cardiolipin IgM Ab (<=12) MPL 08/09/18 08/08/18 Range/Units 07:18 17:35 WBC (4.8-10.8) K/uL RBC (4.40-5.90) Mil/uL Hgb (12.0-18.0) g/dL Hct (35.0-51.0) % MCV (80.0-94.0) fL MCH (27.0-31.0) pg MCHC (33.0-37.0) g/dL RDW (11.5-14.5) % Plt Count (130-400) K/uL MPV (7.2-11.7) fL Neut % (Auto) (50.0-75.0) % Lymph % (Auto) (20.0-40.0) % [place] % (Auto) (0.0-10.0) % Eos % (Auto) (0.0-4.0) % Baso % (Auto) (0.0-2.0) % Neut # (Auto) (1.8-7.0) K/uL Lymph # (Auto) (1.0-4.3) K/uL [place] # (Auto) (0.0-0.8) K/uL Eos # (Auto) (0.0-0.7) K/uL Baso # (Auto) (0.0-0.2) K/uL PT (9.7-12.2) SECONDS INR APTT (21-34) SECONDS Protein S Antigen (70-140) % normal Antithrombin III Ag 36 L (80-120) % Factor V Factor V Activity (65-150) % Sodium (132-148) mmol/L Potassium (3.6-5.2) mmol/L Chloride (98-107) mmol/L Carbon Dioxide (22-30) mmol/L Anion Gap (10-20) BUN (9-20) mg/dL Creatinine (0.8-1.5) mg/dL Est GFR ( Amer) Est GFR (Non-Af Amer) Random Glucose (75-110) mg/dL Calcium (8.6-10.4) mg/dl Phosphorus (2.5-4.5) mg/dL Magnesium (1.6-2.3) mg/dL Total Bilirubin (0.2-1.3) mg/dL AST (17-59) U/L ALT (21-72) U/L Alkaline Phosphatase (38-126) U/L Total Protein (6.3-8.3) g/dL Albumin (3.5-5.0) g/dL Globulin (2.2-3.9) gm/dL Albumin/Globulin Ratio (1.0-2.1) Beta-2 GPI IgG Ab <9 (<=20) SGU Beta-2 GPI IgM Ab <9 (<=20) SMU Beta-2-GPI IgA Ab <9 (<=20) LIAT Anti-Cardiolipin IgG Ab <14 (<=14) GPL Anti-Cardiolipin IgA Ab <11 (<=11) APL Anti-Cardiolipin IgM Ab <12 (<=12) MPL Laboratory Results - last 24 hr 08/08/18 08/09/18 08/09/18 17:35 07:18 07:18 WBC RBC Hgb Hct MCV MCH MCHC RDW Plt Count MPV Neut % (Auto) Lymph % (Auto) [place] % (Auto) Eos % (Auto) Baso % (Auto) Neut # (Auto) Lymph # (Auto) [place] # (Auto) Eos # (Auto) Baso # (Auto) PT INR APTT Protein S Antigen Antithrombin III Ag 36 L Factor V see note Factor V Activity Sodium Potassium Chloride Carbon Dioxide Anion Gap BUN Creatinine Est GFR ( Amer) Est GFR (Non-Af Amer) Random Glucose Calcium Phosphorus Magnesium Total Bilirubin AST ALT Alkaline Phosphatase Total Protein Albumin Globulin Albumin/Globulin Ratio Beta-2 GPI IgG Ab <9 Beta-2 GPI IgM Ab <9 Beta-2-GPI IgA Ab <9 Anti-Cardiolipin IgG Ab <14 Anti-Cardiolipin IgA Ab <11 Anti-Cardiolipin IgM Ab <12 08/09/18 08/09/18 08/13/18 07:18 07:18 05:32 WBC 9.4 RBC 4.90 Hgb 12.3 Hct 39.4 MCV 80.4 MCH 25.2 L MCHC 31.4 L RDW 19.3 H Plt Count 262 MPV 9.2 Neut % (Auto) 65.0 Lymph % (Auto) 22.1 [place] % (Auto) 11.5 H Eos % (Auto) 0.5 Baso % (Auto) 0.9 Neut # (Auto) 6.1 Lymph # (Auto) 2.1 [place] # (Auto) 1.1 H Eos # (Auto) 0.0 Baso # (Auto) 0.1 PT INR APTT Protein S Antigen 85 Antithrombin III Ag Factor V Factor V Activity 19 L Sodium Potassium Chloride Carbon Dioxide Anion Gap BUN Creatinine Est GFR ( Amer) Est GFR (Non-Af Amer) Random Glucose Calcium Phosphorus Magnesium Total Bilirubin AST ALT Alkaline Phosphatase Total Protein Albumin Globulin Albumin/Globulin Ratio Beta-2 GPI IgG Ab Beta-2 GPI IgM Ab Beta-2-GPI IgA Ab Anti-Cardiolipin IgG Ab Anti-Cardiolipin IgA Ab Anti-Cardiolipin IgM Ab 08/13/18 08/13/18 05:32 05:32 WBC RBC Hgb Hct MCV MCH MCHC RDW Plt Count MPV Neut % (Auto) Lymph % (Auto) [place] % (Auto) Eos % (Auto) Baso % (Auto) Neut # (Auto) Lymph # (Auto) [place] # (Auto) Eos # (Auto) Baso # (Auto) PT 27.9 H INR 2.5 APTT 67.9 H D Protein S Antigen Antithrombin III Ag Factor V Factor V Activity Sodium 133 Potassium 4.1 Chloride 97 L Carbon Dioxide 25 Anion Gap 16 BUN 48 H Creatinine 1.5 Est GFR ( Amer) > 60 Est GFR (Non-Af Amer) 53 Random Glucose 96 Calcium 8.6 Phosphorus 3.7 Magnesium 2.3 Total Bilirubin 5.0 H AST 167 H ALT 159 H Alkaline Phosphatase 100 Total Protein 6.6 Albumin 3.5 Globulin 3.0 Albumin/Globulin Ratio 1.2 Beta-2 GPI IgG Ab Beta-2 GPI IgM Ab Beta-2-GPI IgA Ab Anti-Cardiolipin IgG Ab Anti-Cardiolipin IgA Ab Anti-Cardiolipin IgM Ab Radiology Impressions: Radiology Impressions Chest X-Ray 08/12/18 12:52 IMPRESSION: No active disease. No significant interval change compared to the prior examination(s). Review of Systems - Review of Systems All systems: reviewed and no additional remarkable complaints except Review of Systems: as per HPI Critical Care Progress Note - Nutrition Nutrition: Nutrition Category Date Time Status Consistent Carbohydrate [DIET] Diets 08/13/18 Breakfast Active <MoiseRodo S - Last Filed: 08/13/18 18:40> CCU Subjective - Physician Review Critical Care Time Spent (in minutes): 45 CCU Objective - Vital Signs / Intake & Output Vital Signs (Last 4 hours): Vital Signs Temp Pulse Resp BP Pulse Ox 08/13/18 18:00 84 24 100 08/13/18 17:56 107/82 08/13/18 17:30 107/82 08/13/18 17:00 84 26 H 100 08/13/18 16:30 84 21 99/73 L 100 08/13/18 16:00 86 17 100 08/13/18 15:15 99.6 F 08/13/18 15:00 83 15 100 08/13/18 14:56 84 12 91/66 L 100 Intake and Output (Last 8hrs): Intake & Output 08/13/18 08/13/18 08/13/18 06:59 14:59 22:59 Intake Total 421.2 421.2 35.6 Output Total 400 680 Balance 21.2 -258.8 35.6 Weight 222 lb 1.6 oz Intake: IV 250 Intake, IV Amount 71.2 121.2 35.6 left ac 71.2 50 lefy wrist 71.2 35.6 Oral 100 300 Output: Urine 400 680 Urine, Voided 400 680 - Medications Active Medications: Active Medications Generic Name Dose Route Start Last Admin Trade Name Freq PRN Reason Stop Dose Admin Aspirin 81 mg 08/07/18 10:00 08/13/18 09:28 Aspirin Chewable PO 81 mg DAILY JACKELIN Administration Carvedilol 6.25 mg 08/11/18 08:40 08/13/18 17:53 Coreg PO 6.25 mg BID JACKELIN Administration Docusate Sodium 100 mg 08/13/18 10:00 08/13/18 17:52 Colace PO 100 mg TID JACKELIN Administration Folic Acid 1 mg 08/09/18 10:00 08/13/18 09:31 Folic Acid PO 1 mg DAILY JACKELIN Administration Furosemide 20 mg 08/12/18 10:45 08/13/18 17:56 Lasix IVP 20 mg Q8H JACKELIN Administration Heparin Sodium/Sodium Chloride 25,000 units in 250 mls @ 8.91 mls/hr 08/08/18 15:59 08/13/18 00:59 Heparin 46567 Units/250ml 1/2 Normal Saline IV 9 units/kg/hr .Q24H PRN 8.91 mls/hr ADJUST RATE PER PROTOCOL Administration Protocol 9 UNITS/KG/HR Morphine Sulfate 1 mg 08/13/18 14:03 08/13/18 14:47 Morphine IVP 1 mg Q4 PRN Administration Pain, moderate (4-7) Pantoprazole Sodium 40 mg 08/07/18 10:00 08/13/18 09:29 Protonix Ec Tab PO 40 mg DAILY JACKELIN Administration Rosuvastatin Calcium 5 mg 08/06/18 18:00 08/07/18 17:51 Crestor PO 5 mg QPM JACKELIN Administration Thiamine HCl 100 mg 08/09/18 10:00 08/13/18 09:29 Vitamin B1 Tab PO 100 mg DAILY JACKELIN Administration - Patient Studies Lab Studies: Lab Studies 08/13/18 08/13/18 08/13/18 Range/Units 05:32 05:32 05:32 WBC 9.4 (4.8-10.8) K/uL RBC 4.90 (4.40-5.90) Mil/uL Hgb 12.3 (12.0-18.0) g/dL Hct 39.4 (35.0-51.0) % MCV 80.4 (80.0-94.0) fL MCH 25.2 L (27.0-31.0) pg MCHC 31.4 L (33.0-37.0) g/dL RDW 19.3 H (11.5-14.5) % Plt Count 262 (130-400) K/uL MPV 9.2 (7.2-11.7) fL Neut % (Auto) 65.0 (50.0-75.0) % Lymph % (Auto) 22.1 (20.0-40.0) % [place] % (Auto) 11.5 H (0.0-10.0) % Eos % (Auto) 0.5 (0.0-4.0) % Baso % (Auto) 0.9 (0.0-2.0) % Neut # (Auto) 6.1 (1.8-7.0) K/uL Lymph # (Auto) 2.1 (1.0-4.3) K/uL [place] # (Auto) 1.1 H (0.0-0.8) K/uL Eos # (Auto) 0.0 (0.0-0.7) K/uL Baso # (Auto) 0.1 (0.0-0.2) K/uL PT 27.9 H (9.7-12.2) SECONDS INR 2.5 APTT 67.9 H D (21-34) SECONDS Antithrombin III Ag (80-120) % Factor V Activity (65-150) % Sodium 133 (132-148) mmol/L Potassium 4.1 (3.6-5.2) mmol/L Chloride 97 L (98-107) mmol/L Carbon Dioxide 25 (22-30) mmol/L Anion Gap 16 (10-20) BUN 48 H (9-20) mg/dL Creatinine 1.5 (0.8-1.5) mg/dL Est GFR ( Amer) > 60 Est GFR (Non-Af Amer) 53 Random Glucose 96 (75-110) mg/dL Calcium 8.6 (8.6-10.4) mg/dl Phosphorus 3.7 (2.5-4.5) mg/dL Magnesium 2.3 (1.6-2.3) mg/dL Total Bilirubin 5.0 H (0.2-1.3) mg/dL AST 167 H (17-59) U/L ALT 159 H (21-72) U/L Alkaline Phosphatase 100 (38-126) U/L Total Protein 6.6 (6.3-8.3) g/dL Albumin 3.5 (3.5-5.0) g/dL Globulin 3.0 (2.2-3.9) gm/dL Albumin/Globulin Ratio 1.2 (1.0-2.1) Beta-2 GPI IgG Ab (<=20) SGU Beta-2 GPI IgM Ab (<=20) SMU Beta-2-GPI IgA Ab (<=20) LIAT Phosphatidylserine IgG (<10) U/mL Phosphatidylserine IgA (<20) U/mL Phosphatidylserine IgM (<25) U/mL Anti-Phospholipid Intrp Anti-Cardiolipin IgG Ab (<=14) GPL Anti-Cardiolipin IgA Ab (<=11) APL Anti-Cardiolipin IgM Ab (<=12) MPL 08/09/18 08/09/18 08/08/18 Range/Units 07:18 07:18 17:35 WBC (4.8-10.8) K/uL RBC (4.40-5.90) Mil/uL Hgb (12.0-18.0) g/dL Hct (35.0-51.0) % MCV (80.0-94.0) fL MCH (27.0-31.0) pg MCHC (33.0-37.0) g/dL RDW (11.5-14.5) % Plt Count (130-400) K/uL MPV (7.2-11.7) fL Neut % (Auto) (50.0-75.0) % Lymph % (Auto) (20.0-40.0) % [place] % (Auto) (0.0-10.0) % Eos % (Auto) (0.0-4.0) % Baso % (Auto) (0.0-2.0) % Neut # (Auto) (1.8-7.0) K/uL Lymph # (Auto) (1.0-4.3) K/uL [place] # (Auto) (0.0-0.8) K/uL Eos # (Auto) (0.0-0.7) K/uL Baso # (Auto) (0.0-0.2) K/uL PT (9.7-12.2) SECONDS INR APTT (21-34) SECONDS Antithrombin III Ag 36 L (80-120) % Factor V Activity 19 L (65-150) % Sodium (132-148) mmol/L Potassium (3.6-5.2) mmol/L Chloride (98-107) mmol/L Carbon Dioxide (22-30) mmol/L Anion Gap (10-20) BUN (9-20) mg/dL Creatinine (0.8-1.5) mg/dL Est GFR ( Amer) Est GFR (Non-Af Amer) Random Glucose (75-110) mg/dL Calcium (8.6-10.4) mg/dl Phosphorus (2.5-4.5) mg/dL Magnesium (1.6-2.3) mg/dL Total Bilirubin (0.2-1.3) mg/dL AST (17-59) U/L ALT (21-72) U/L Alkaline Phosphatase (38-126) U/L Total Protein (6.3-8.3) g/dL Albumin (3.5-5.0) g/dL Globulin (2.2-3.9) gm/dL Albumin/Globulin Ratio (1.0-2.1) Beta-2 GPI IgG Ab <9 (<=20) SGU Beta-2 GPI IgM Ab <9 (<=20) SMU Beta-2-GPI IgA Ab <9 (<=20) LIAT Phosphatidylserine IgG <10 (<10) U/mL Phosphatidylserine IgA <20 (<20) U/mL Phosphatidylserine IgM <25 (<25) U/mL Anti-Phospholipid Intrp see note Anti-Cardiolipin IgG Ab <14 (<=14) GPL Anti-Cardiolipin IgA Ab <11 (<=11) APL Anti-Cardiolipin IgM Ab <12 (<=12) MPL Laboratory Results - last 24 hr 08/08/18 08/09/18 08/09/18 17:35 07:18 07:18 WBC RBC Hgb Hct MCV MCH MCHC RDW Plt Count MPV Neut % (Auto) Lymph % (Auto) [place] % (Auto) Eos % (Auto) Baso % (Auto) Neut # (Auto) Lymph # (Auto) [place] # (Auto) Eos # (Auto) Baso # (Auto) PT INR APTT Antithrombin III Ag 36 L Factor V Activity 19 L Sodium Potassium Chloride Carbon Dioxide Anion Gap BUN Creatinine Est GFR ( Amer) Est GFR (Non-Af Amer) Random Glucose Calcium Phosphorus Magnesium Total Bilirubin AST ALT Alkaline Phosphatase Total Protein Albumin Globulin Albumin/Globulin Ratio Beta-2 GPI IgG Ab <9 Beta-2 GPI IgM Ab <9 Beta-2-GPI IgA Ab <9 Phosphatidylserine IgG <10 Phosphatidylserine IgA <20 Phosphatidylserine IgM <25 Anti-Phospholipid Intrp see note Anti-Cardiolipin IgG Ab <14 Anti-Cardiolipin IgA Ab <11 Anti-Cardiolipin IgM Ab <12 08/13/18 08/13/18 08/13/18 05:32 05:32 05:32 WBC 9.4 RBC 4.90 Hgb 12.3 Hct 39.4 MCV 80.4 MCH 25.2 L MCHC 31.4 L RDW 19.3 H Plt Count 262 MPV 9.2 Neut % (Auto) 65.0 Lymph % (Auto) 22.1 [place] % (Auto) 11.5 H Eos % (Auto) 0.5 Baso % (Auto) 0.9 Neut # (Auto) 6.1 Lymph # (Auto) 2.1 [place] # (Auto) 1.1 H Eos # (Auto) 0.0 Baso # (Auto) 0.1 PT 27.9 H INR 2.5 APTT 67.9 H D Antithrombin III Ag Factor V Activity Sodium 133 Potassium 4.1 Chloride 97 L Carbon Dioxide 25 Anion Gap 16 BUN 48 H Creatinine 1.5 Est GFR ( Amer) > 60 Est GFR (Non-Af Amer) 53 Random Glucose 96 Calcium 8.6 Phosphorus 3.7 Magnesium 2.3 Total Bilirubin 5.0 H AST 167 H ALT 159 H Alkaline Phosphatase 100 Total Protein 6.6 Albumin 3.5 Globulin 3.0 Albumin/Globulin Ratio 1.2 Beta-2 GPI IgG Ab Beta-2 GPI IgM Ab Beta-2-GPI IgA Ab Phosphatidylserine IgG Phosphatidylserine IgA Phosphatidylserine IgM Anti-Phospholipid Intrp Anti-Cardiolipin IgG Ab Anti-Cardiolipin IgA Ab Anti-Cardiolipin IgM Ab Radiology Impressions: Radiology Impressions Abdomen Ultrasound 08/13/18 10:50 IMPRESSION: Hepatomegaly. Echogenic liver may be seen in setting of hepatic parenchymal disease or fatty infiltration. Small perihepatic and perisplenic ascites. The gallbladder is contracted limiting evaluation. Gallbladder wall thickening which measures approximately 6 mm. Negative sonographic [place]'s sign. No calcified gallstones identified. Chest X-Ray 08/13/18 13:36 IMPRESSION: Cardiomegaly. Hazy opacity in the right mid lung zone may reflect pneumonia. Critical Care Progress Note - Nutrition Nutrition: Nutrition Category Date Time Status Consistent Carbohydrate [DIET] Diets 08/13/18 Breakfast Active NPO Diet [DIET] Diets 08/14/18 Breakfast Active Attending/Attestation - Attestation I have personally seen and examined this patient.: Yes I have fully participated in the care of the patient.: Yes I have reviewed all pertinent clinical information: Yes Notes (Text): 08/13/18 18:38 Patient seen and examined in the intensive care unit. Case discussed with housestaff in the morning rounds. Cardiac cath consult because of elevated INR Vitamin K 10 mg IV continue heparin drip Possible AICD tomorrow Case discussed with cardiology
--- NOTE | 2018-08-13 11:10 | CP.PCM.PN ---
Subjective - Date & Time of Evaluation Date of Evaluation: 08/13/18 Time of Evaluation: 11:05 - Subjective Subjective: PGY-[address] Purcell, Nephshantanu Pt laying flat on chair comfortably. No acute complain except subacute epigastric substernal pain mild and radiating to b/l upper quadrants (that hasnt been changed since admission) Objective - Vital Signs/Intake and Output Vital Signs (last 24 hours): Temp Pulse Resp BP Pulse Ox 97.9 F 85 19 102/76 95 08/13/18 04:00 08/13/18 10:00 08/13/18 10:00 08/13/18 10:38 08/13/18 10:00 Intake and Output: 08/13/18 08/13/18 06:59 18:59 Intake Total 581.8 238.9 Output Total 700 180 Balance -118.2 58.9 - Medications Medications: Current Medications Aspirin (Aspirin Chewable) 81 mg PO DAILY [facility] Last Admin: 08/13/18 09:28 Dose: 81 mg Carvedilol (Coreg) 6.25 mg PO BID [facility] Last Admin: 08/13/18 09:29 Dose: 6.25 mg Docusate Sodium (Colace) 100 mg PO TID [facility] Last Admin: 08/13/18 09:28 Dose: 100 mg Folic Acid (Folic Acid) 1 mg PO DAILY [facility] Last Admin: 08/13/18 09:31 Dose: 1 mg Furosemide (Lasix) 20 mg IVP Q8H [facility] Last Admin: 08/13/18 10:38 Dose: 20 mg Heparin Sodium/Sodium Chloride (Heparin 98397 Units/250ml 1/2 Normal Saline) 25,000 units in 250 mls @ 8.91 mls/hr IV .Q24H PRN; Protocol PRN Reason: ADJUST RATE PER PROTOCOL Last Admin: 08/13/18 00:59 Dose: 9 units/kg/hr, 8.91 mls/hr Pantoprazole Sodium (Protonix Ec Tab) 40 mg PO DAILY [facility] Last Admin: 08/13/18 09:29 Dose: 40 mg Rosuvastatin Calcium (Crestor) 5 mg PO QPM [facility] Last Admin: 08/07/18 17:51 Dose: 5 mg Thiamine HCl (Vitamin B1 Tab) 100 mg PO DAILY [facility] Last Admin: 08/13/18 09:29 Dose: 100 mg - Labs Labs: 08/13/18 05:32 08/13/18 05:32 PT 27.9 SECONDS (9.7-12.2) H 08/13/18 05:32 INR 2.5 08/13/18 05:32 APTT 67.9 SECONDS (21-34) H D 08/13/18 05:32 - Constitutional Appears: No Acute Distress - Head Exam Head Exam: ATRAUMATIC, NORMAL INSPECTION, NORMOCEPHALIC - Eye Exam Eye Exam: EOMI, Normal appearance, PERRL. absent: Scleral icterus Pupil Exam: NORMAL ACCOMODATION - ENT Exam ENT Exam: Mucous Membranes Moist - Neck Exam Additional comments: supple, No JVD - Respiratory Exam Respiratory Exam: Clear to Ausculation Bilateral. absent: Decreased Breath Sounds, Rales, Rhonchi, Wheezes - Cardiovascular Exam Cardiovascular Exam: REGULAR RHYTHM, +S1, +S2. absent: Murmur - GI/Abdominal Exam GI & Abdominal Exam: Soft, Tenderness (mild, b/l upper quadrants), Hypoactive Bowel Sounds. absent: Firm, Guarding, Rigid - Extremities Exam Extremities Exam: Pedal Edema (mild). absent: Calf Tenderness - Back Exam Back Exam: absent: CVA tenderness (L), CVA tenderness (R) - Neurological Exam Neurological Exam: Alert, Awake, Oriented x3 - Psychiatric Exam Psychiatric exam: Normal Affect, Normal Mood - Skin Skin Exam: Dry, Warm Assessment and Plan - Assessment and Plan (Free Text) Plan: Mr Love, 38 AAM, former smoker with PMHx non-ischemic cardiomyopathy (EF 13) non-compliant with life-vest, not-ambulating for a month, came in for dyspnea and dyspnic chest pain and was found to have LLE DVT, R main PE, and b-vent cardiac thrombi. He is s/p TPA and IVC (08/08), pending decision on AICD and thrombectomy (1) Acute renal failure ATN @ Cre 2.8 - resolving secondary to contrast nephropathy Cre stable at 1.5. Oliguria resolved. stable lytes and volume status. Continue strict i/o Did not have emergent dialysis due to TPA (2) b-vent cardiac thrombi s/p TPA Pulmonary embolism with DVT on heparin gtt. Not bridging yet due to decision to AICD Repeat ECHO (08/10) official report still demonstrates moderate to large thrombi involving apex and postero-lateral wall, latter being mobile with possible detached thrombus in aortic outflow tract; Less thrombus burden in LV compared to prior study, no thrombi in RA or upper IVC ? thrombectomy on Right side. No left thrombectomy per ICU (3) Elevated INR 5 with transaminitis with mild abdominal pain Pending Hep panel, HIV screen. Check LDH, direct bili, abdominal U/S (4) Severe non-ischemic cardiomyopathy, systolic CHF, acute on chronic - improving Continue to monitor for volume overloaded leg edema resolved, no JVD, lungs no crackes On ASA, coreg give lasix prn Cath cancelled today due to INR; Maybe tomorrow. Will add NS@75 at midnight (5) Metabolic acidosis - resolved Respiratory alkalosis likely from dyspnea due to PE - improving s/r/d/w Dr Purcell
[2018-08-13] MEDS ORDERED: Albuterol-Ipratrop 3 mg / 0.5 (3 ml) UD INH STA (13:36)
--- NOTE | 2018-08-13 13:54 | US ---
HISTORY: increasingly elevated bilirubin COMPARISON: CT abdomen and pelvis without contrast performed 08/07/18, abdominal ultrasound performed 04/28/18 TECHNIQUE: Sonographic evaluation of the abdomen. FINDINGS: LIVER: Measures 20.7 cm in sagittal dimension. Echogenic liver may be seen in setting of hepatic parenchymal disease or fatty infiltration. No focal hepatic mass identified. The main portal vein appears patent with normal directional flow. No intrahepatic bile duct dilatation. Small perihepatic ascites. GALLBLADDER: Contracted state limits evaluation. No gallstones. Gallbladder wall appears thickened measuring approximately 6 mm. Negative sonographic [place]'s sign as assessed by the checker cashier. COMMON BILE DUCT: Measures 3 mm. PANCREAS: Not well visualized. RIGHT KIDNEY: Measures 11.8 x 4.7 x 5.1 cm. No obstructing calculus or hydronephrosis identified. LEFT KIDNEY: Measures 11.6 x 5.3 x 5.0 cm. No obstructing calculus or hydronephrosis identified. SPLEEN: Measures approximately 7.9 cm. Small perisplenic ascites. AORTA: Limited views appear unremarkable. IVC: Limited views appear unremarkable. OTHER FINDINGS: None. IMPRESSION: Hepatomegaly. Echogenic liver may be seen in setting of hepatic parenchymal disease or fatty infiltration. Small perihepatic and perisplenic ascites. The gallbladder is contracted limiting evaluation. Gallbladder wall thickening which measures approximately 6 mm. Negative sonographic [place]'s sign. No calcified gallstones identified.
--- NOTE | 2018-08-13 13:57 | CP.PCM.PN ---
<Jeromy Duncan - Last Filed: 08/13/18 17:43> Subjective - Date & Time of Evaluation Date of Evaluation: 08/13/18 Time of Evaluation: 13:51 - Subjective Subjective: PGY2 Cardiology Note for Dr. Mccarty Patient was seen and examined at bedside, in mild respiratory discomfort. Patient's mother was present during the examination. Patient reports that he has been having nonproductive cough all morning and that each episode has been causing him pain throughout the chest. Patient reports that his breathing has not changed much since yesterday, but the generalized body ache has improved. Patient still reports that the left side of his body from his chest to legs are still painful with movement and deep palpation. Patient denies headache, changes in vision, changes in hearing, n/v/d, constipation, abd pain, and LE edema. Objective - Vital Signs/Intake and Output Vital Signs (last 24 hours): Temp Pulse Resp BP Pulse Ox 97.6 F 83 14 97/70 L 100 08/13/18 12:00 08/13/18 12:00 08/13/18 12:00 08/13/18 11:55 08/13/18 12:00 Intake and Output: 08/13/18 08/13/18 06:59 18:59 Intake Total 581.8 283.4 Output Total 700 380 Balance -118.2 -96.6 - Medications Medications: Current Medications Aspirin (Aspirin Chewable) 81 mg PO DAILY [facility] Last Admin: 08/13/18 09:28 Dose: 81 mg Carvedilol (Coreg) 6.25 mg PO BID [facility] Last Admin: 08/13/18 09:29 Dose: 6.25 mg Docusate Sodium (Colace) 100 mg PO TID [facility] Last Admin: 08/13/18 09:28 Dose: 100 mg Folic Acid (Folic Acid) 1 mg PO DAILY [facility] Last Admin: 08/13/18 09:31 Dose: 1 mg Furosemide (Lasix) 20 mg IVP Q8H [facility] Last Admin: 08/13/18 10:38 Dose: 20 mg Heparin Sodium/Sodium Chloride (Heparin 42623 Units/250ml 1/2 Normal Saline) 25,000 units in 250 mls @ 8.91 mls/hr IV .Q24H PRN; Protocol PRN Reason: ADJUST RATE PER PROTOCOL Last Admin: 05/14/19 00:59 Dose: 9 units/kg/hr, 8.91 mls/hr Sodium Chloride (Sodium Chloride 0.9%) 1,000 mls @ 75 mls/hr IV .[id number] [facility] Stop: 08/14/18 13:19 Pantoprazole Sodium (Protonix Ec Tab) 40 mg PO DAILY [facility] Last Admin: 08/13/18 09:29 Dose: 40 mg Rosuvastatin Calcium (Crestor) 5 mg PO QPM [facility] Last Admin: 08/07/18 17:51 Dose: 5 mg Thiamine HCl (Vitamin B1 Tab) 100 mg PO DAILY [facility] Last Admin: 08/13/18 09:29 Dose: 100 mg - Labs Labs: 08/13/18 05:32 08/13/18 05:32 PT 27.9 SECONDS (9.7-12.2) H 08/13/18 05:32 INR 2.5 08/13/18 05:32 APTT 67.9 SECONDS (21-34) H D 08/13/18 05:32 - Constitutional Appears: Non-toxic, Other (uncomfortable) - Head Exam Head Exam: ATRAUMATIC, NORMAL INSPECTION, NORMOCEPHALIC - Eye Exam Eye Exam: EOMI, Normal appearance - ENT Exam ENT Exam: Mucous Membranes Moist - Respiratory Exam Respiratory Exam: Decreased Breath Sounds, Clear to Ausculation Bilateral. absent: Accessory Muscle Use, Rales, Rhonchi, Wheezes, Respiratory Distress - Cardiovascular Exam Cardiovascular Exam: REGULAR RHYTHM, RRR, +S1, +S2. absent: JVD - GI/Abdominal Exam GI & Abdominal Exam: Soft, Tenderness, Normal Bowel Sounds Additional comments: tenderness to palpation all abdominal quadrants - Extremities Exam Extremities Exam: Calf Tenderness (left calf ). absent: Pedal Edema - Neurological Exam Neurological Exam: Alert, Awake, Oriented x3 - Psychiatric Exam Psychiatric exam: Flat Affect - Skin Skin Exam: absent: Normal Color (ecchymosis on the right arm) Assessment and Plan - Assessment and Plan (Free Text) Plan: Systolic Heart Failure - bi-ventricular failure Nonischemic Cardiomyopathy Paroxysmal Vtach EP Quarter Supervisor consulted, Dr. Jones, * Consult for AICD placement evaluation * He has persistently decreased LVEF (first seen on ECHO 08/19/17, EF <15%) * Patient experienced multiple events of non-sustained Vtach throughout the night of 08/08 to morning of 08/09. * Patient has not been a good candidate for heart transplant or life vest due to non compliance in the past. Cardiac cath cancelled for today due to elevated INR * given Vitamin K+ 10mg IV once * will re-evaluate tomorrow morning * NPO past midnight for AICD placement tomorrow with Dr. Jones * patient will be transferred to [facility] [place] AICD [place], then will return to [facility] after completion of procedure. Medications: * Aspirin 81 mg PO daily * Heparin drip * Coreg 6.25 mg BID * Crestor 5 mg PO daily - on hold due to transaminitis * Lasix 20mg IVP q8h Pulmonary Embolism Thrombus in Right Atrium (resolved) Thrombus in Left Ventricle DVT - left leg Vascular Surgery consulted, Dr. Alvares * s/p IVC filter placed on 08/08/2018 CTA Chest: Filling defect arising within distal R main pulmonary artery involving distal pulmonary artery branches. No evidence of saddle embolus. ECHO on 08/06 showed thrombus in Right Atrium and LV. Likely two separate processes. * tPa was given on 08/07. Repeat ECHO on 08/08 showed persistent clot attached to LV wall, but resolution of thrombus in right ventricle. * Patient will need bubble study to r/o shunt once clots are resolved and he is more stable. Lower Extremity Doppler * Left: acute DVT of the left distal popliteal, posterior tibial and peroneal veins, with moderate reduction of the venous return. Pulsatile venous flow noted of the left side. * Right: No evidence of deep or superficial vein thrombosis of the right lower extremity. Pulsatile venous flow noted of the right side. Patient will need to be continued on anti-coagulation therapy upon discharge. * Warfarin vs. Xarelto Vs. Eliquis; concern with Hx of noncompliance * Discussed with patient the importance of establishing care with a PMD for continued routine maintenance upon discharge. He reports understanding and agreement. He is to follow up in the [facility] in the [facility] upon discharge. 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 Discontinued fluids due to current CHF exacerbation Continue to monitor Hepatic Insufficiency Improving continue to monitor Hold statin until normalization of transaminitis Case discussed with Dr. Lul Duncan PGY2 <Alfie Mccarty - Last Filed: 08/13/18 22:18> Objective - Vital Signs/Intake and Output Vital Signs (last 24 hours): Temp Pulse Resp BP Pulse Ox 99.6 F 85 17 100/78 100 08/13/18 15:15 08/13/18 18:30 08/13/18 18:30 08/13/18 19:30 08/13/18 18:30 Intake and Output: 08/13/18 08/14/18 18:59 06:59 Intake Total 456.8 17.8 Output Total 680 Balance -223.2 17.8 - Medications Medications: Current Medications Aspirin (Aspirin Chewable) 81 mg PO DAILY [facility] Last Admin: 08/13/18 09:28 Dose: 81 mg Carvedilol (Coreg) 6.25 mg PO BID [facility] Last Admin: 08/13/18 17:53 Dose: 6.25 mg Docusate Sodium (Colace) 100 mg PO TID [facility] Last Admin: 08/13/18 17:52 Dose: 100 mg Folic Acid (Folic Acid) 1 mg PO DAILY [facility] Last Admin: 08/13/18 09:31 Dose: 1 mg Furosemide (Lasix) 20 mg IVP Q8H [facility] Last Admin: 08/13/18 17:56 Dose: 20 mg Heparin Sodium/Sodium Chloride (Heparin 18967 Units/250ml 1/2 Normal Saline) 25,000 units in 250 mls @ 8.91 mls/hr IV .Q24H PRN; Protocol PRN Reason: ADJUST RATE PER PROTOCOL Last Admin: 08/13/18 00:59 Dose: 9 units/kg/hr, 8.91 mls/hr Morphine Sulfate (Morphine) 1 mg IVP Q4 PRN PRN Reason: Pain, moderate (4-7) Last Admin: 08/13/18 14:47 Dose: 1 mg Pantoprazole Sodium (Protonix Ec Tab) 40 mg PO DAILY [facility] Last Admin: 08/13/18 09:29 Dose: 40 mg Rosuvastatin Calcium (Crestor) 5 mg PO QPM [facility] Last Admin: 08/07/18 17:51 Dose: 5 mg Thiamine HCl (Vitamin B1 Tab) 100 mg PO DAILY [facility] Last Admin: 08/13/18 09:29 Dose: 100 mg - Labs Labs: 08/13/18 05:32 08/13/18 05:32 PT 27.9 SECONDS (9.7-12.2) H 08/13/18 05:32 INR 2.5 08/13/18 05:32 APTT 67.9 SECONDS (21-34) H D 08/13/18 05:32 Assessment and Plan - Assessment and Plan (Free Text) Plan: Patient seen, examined and evaluated personally by me. Plan of care d/w the director medical and as documented
--- NOTE | 2018-08-13 14:14 | RAD ---
HISTORY: sob COMPARISON: Chest x-ray performed 08/12/18 TECHNIQUE: Chest, one view. FINDINGS: LUNGS: Hazy opacity in the right mid lung zone may reflect pneumonia. Please note that chest x-ray has limited sensitivity for the detection of pulmonary masses. PLEURA: No significant pleural effusion identified. No definite pneumothorax . CARDIOVASCULAR: Cardiomegaly. No significant atherosclerotic calcification present. OSSEOUS STRUCTURES: No acute osseous abnormality identified. VISUALIZED UPPER ABDOMEN: Unremarkable. OTHER FINDINGS: None. IMPRESSION: Cardiomegaly. Hazy opacity in the right mid lung zone may reflect pneumonia.
[2018-08-13 14:59] LABS: PHOSPHATIDYLSERINE AB IGA <20 U/mL (<20); PHOSPHATIDYLSERINE AB IGG <10 U/mL (<10); PHOSPHATIDYLSERINE AB IGM <25 U/mL (<25)
[2018-08-13] MEDS ORDERED: Acetylcysteine 20% Inhal Soln (4ml) PO SCH (16:00)
--- NOTE | 2018-08-13 21:16 | CP.PCM.PN ---
Subjective - Date & Time of Evaluation Date of Evaluation: 08/13/18 Time of Evaluation: 21:20 - Subjective Subjective: dict Objective - Vital Signs/Intake and Output Vital Signs (last 24 hours): Temp Pulse Resp BP Pulse Ox 99.6 F 85 17 100/78 100 08/13/18 15:15 08/13/18 18:30 08/13/18 18:30 08/13/18 19:30 08/13/18 18:30 Intake and Output: 08/13/18 08/14/18 18:59 06:59 Intake Total 456.8 17.8 Output Total 680 Balance -223.2 17.8 - Medications Medications: Current Medications Aspirin (Aspirin Chewable) 81 mg PO DAILY [facility] Last Admin: 08/13/18 09:28 Dose: 81 mg Carvedilol (Coreg) 6.25 mg PO BID [facility] Last Admin: 08/13/18 17:53 Dose: 6.25 mg Docusate Sodium (Colace) 100 mg PO TID [facility] Last Admin: 08/13/18 17:52 Dose: 100 mg Folic Acid (Folic Acid) 1 mg PO DAILY [facility] Last Admin: 08/13/18 09:31 Dose: 1 mg Furosemide (Lasix) 20 mg IVP Q8H [facility] Last Admin: 08/13/18 17:56 Dose: 20 mg Heparin Sodium/Sodium Chloride (Heparin 55772 Units/250ml 1/2 Normal Saline) 25,000 units in 250 mls @ 8.91 mls/hr IV .Q24H PRN; Protocol PRN Reason: ADJUST RATE PER PROTOCOL Last Admin: 08/13/18 00:59 Dose: 9 units/kg/hr, 8.91 mls/hr Morphine Sulfate (Morphine) 1 mg IVP Q4 PRN PRN Reason: Pain, moderate (4-7) Last Admin: 08/13/18 14:47 Dose: 1 mg Pantoprazole Sodium (Protonix Ec Tab) 40 mg PO DAILY [facility] Last Admin: 08/13/18 09:29 Dose: 40 mg Rosuvastatin Calcium (Crestor) 5 mg PO QPM [facility] Last Admin: 08/07/18 17:51 Dose: 5 mg Thiamine HCl (Vitamin B1 Tab) 100 mg PO DAILY [facility] Last Admin: 08/13/18 09:29 Dose: 100 mg - Labs Labs: 08/13/18 05:32 08/13/18 05:32 PT 27.9 SECONDS (9.7-12.2) H 08/13/18 05:32 INR 2.5 08/13/18 05:32 APTT 67.9 SECONDS (21-34) H D 08/13/18 05:32
--- NOTE | 2018-08-13 22:20 | CP.PCM.PN ---
Subjective - Date & Time of Evaluation Date of Evaluation: 08/12/18 Time of Evaluation: 18:20 - Subjective Subjective: Patient was seen and examined States breathing is somewhat better Objective - Additional Findings Additional findings: - Constitutional Appears: Non-toxic, No Acute Distress - Head Exam Head Exam: ATRAUMATIC, NORMOCEPHALIC - Eye Exam Eye Exam: EOMI, Normal appearance Pupil Exam: PERRL - ENT Exam ENT Exam: Mucous Membranes Moist - Neck Exam Neck Exam: Normal Inspection. absent: Lymphadenopathy - Respiratory Exam Respiratory Exam: Decreased Breath Sounds, NORMAL BREATHING PATTERN. absent: Accessory Muscle Use, Rhonchi, Wheezes, Respiratory Distress - Cardiovascular Exam Cardiovascular Exam: REGULAR RHYTHM, +S1, +S2 - GI/Abdominal Exam GI & Abdominal Exam: Soft, Normal Bowel Sounds. absent: Distended, Firm, Guarding, Rigid, Rebound - Extremities Exam Extremities Exam: Positive for: Normal Inspection, NORMAL PULSES. Negative for: Edema, CALF TENDERNESS - Neurological Exam Neurological Exam: Alert, Awake, Oriented x3 - Psychiatric Exam Psychiatric exam: Normal Affect, Normal Mood Assessment and Plan - Assessment and Plan (Free Text) Plan: Systolic Heart Failure Nonischemic Cardiomyopathy Paroxysmal Vtach EP Hi Low Truck Driver consulted, Dr. Jones, * Consult for AICD placement evaluation * He has persistently decreased LVEF (first seen on ECHO 08/19/17, EF <15%) * Patient experienced multiple events of non-sustained Vtach throughout the night of 08/08 to morning of 08/09. * Patient has not been a good candidate for heart transplant or life vest due to non compliance in the past. Medications: * Aspirin 81 mg PO daily * Heparin drip * Coreg 6.25 mg BID - increased to 12.5mg BID * Crestor 5 mg PO daily * Lasix IV Pulmonary Embolism Thrombus in Right Atrium (resolved) Thrombus in Left Ventricle DVT - left leg Vascular Surgery consulted, Dr. Alvares * s/p IVC filter placed on 08/08/2018 CTA Chest: Filling defect arising within distal R main pulmonary artery involving distal pulmonary artery branches. No evidence of saddle embolus. ECHO on 08/06 showed thrombus in Right Atrium and LV. Likely two separate processes. * tPa was given on 08/07. Repeat ECHO on 08/08 showed persistent clot attached to LV wall, but resolution of thrombus in right ventricle. * Patient will need bubble study to r/o shunt once clots are resolved and he is more stable. Lower Extremity Doppler * Left: acute DVT of the left distal popliteal, posterior tibial and peroneal veins, with moderate reduction of the venous return. Pulsatile venous flow noted of the left side. * Right: No evidence of deep or superficial vein thrombosis of the right lower extremity. Pulsatile venous flow noted of the right side. Patient will need to be continued on anti-coagulation therapy upon discharge. * Warfarin vs. Xarelto Vs. Eliquis; concern with Hx of noncompliance * Discussed with patient the importance of establishing care with a PMD for continued routine maintenance upon discharge. He reports understanding and agreement. He is to follow up in the [facility] in the [facility] upon discharge. 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 Continue to monitor Due to Biventricular failure, DVT, PE, LV thrombus, CKD, Hepatic insufficiency, severe pulmonary HTN patient assessed as poor prognosis D/W patient and family Continue to monitor closely Objective - Vital Signs/Intake and Output Vital Signs (last 24 hours): Temp Pulse Resp BP Pulse Ox 99.6 F 85 17 100/78 100 08/13/18 15:15 08/13/18 18:30 08/13/18 18:30 08/13/18 19:30 08/13/18 18:30 Intake and Output: 08/13/18 08/14/18 18:59 06:59 Intake Total 456.8 17.8 Output Total 680 Balance -223.2 17.8 - Medications Medications: Current Medications Aspirin (Aspirin Chewable) 81 mg PO DAILY [facility] Last Admin: 08/13/18 09:28 Dose: 81 mg Carvedilol (Coreg) 6.25 mg PO BID [facility] Last Admin: 08/13/18 17:53 Dose: 6.25 mg Docusate Sodium (Colace) 100 mg PO TID [facility] Last Admin: 08/13/18 17:52 Dose: 100 mg Folic Acid (Folic Acid) 1 mg PO DAILY [facility] Last Admin: 08/13/18 09:31 Dose: 1 mg Furosemide (Lasix) 20 mg IVP Q8H [facility] Last Admin: 08/13/18 17:56 Dose: 20 mg Heparin Sodium/Sodium Chloride (Heparin 44548 Units/250ml 1/2 Normal Saline) 25,000 units in 250 mls @ 8.91 mls/hr IV .Q24H PRN; Protocol PRN Reason: ADJUST RATE PER PROTOCOL Last Admin: 08/13/18 00:59 Dose: 9 units/kg/hr, 8.91 mls/hr Morphine Sulfate (Morphine) 1 mg IVP Q4 PRN PRN Reason: Pain, moderate (4-7) Last Admin: 08/13/18 14:47 Dose: 1 mg Pantoprazole Sodium (Protonix Ec Tab) 40 mg PO DAILY [facility] Last Admin: 08/13/18 09:29 Dose: 40 mg Rosuvastatin Calcium (Crestor) 5 mg PO QPM [facility] Last Admin: 08/07/18 17:51 Dose: 5 mg Thiamine HCl (Vitamin B1 Tab) 100 mg PO DAILY [facility] Last Admin: 08/13/18 09:29 Dose: 100 mg - Labs Labs: 08/13/18 05:32 08/13/18 05:32 PT 27.9 SECONDS (9.7-12.2) H 08/13/18 05:32 INR 2.5 08/13/18 05:32 APTT 67.9 SECONDS (21-34) H D 08/13/18 05:32
[2018-08-13] MEDS ORDERED: Sodium Chloride 0.9% 1,000 ML IV SCH (23:59)
[2018-08-14] MEDS ORDERED: Sodium Chloride 0.9% 1,000 ML IV SCH
--- NOTE | 2018-08-14 04:56 | PN ---
DATE: 08/14/2018 SUBJECTIVE: The patient is feeling better. She is afebrile. No shortness of breath. The patient is for cardiac cath and after cardiac cath he is for AICD placement. PHYSICAL EXAMINATION: VITAL SIGNS: Blood pressure 105/71, pulse 62, respiratory rate 16, and temperature 98. LUNGS: Bilateral basal crepitation. CARDIOVASCULAR SYSTEM: S1, S2 plus S3 positive. ABDOMEN: Soft. ASSESSMENT: 1. Severe nonischemic cardiomyopathy with left ventricular ejection fraction 13%. 2. Deep venous thrombosis, pulmonary embolism. PLAN: Cardiac cath and then, the patient is for AICD. Aris Rivas MD
[2018-08-14 05:04] LABS: BASO # 0.1 K/uL (0.0-0.2); BASO % 0.9 % (0.0-2.0); EOS % 0.6 % (0.0-4.0); HEMOGLOBIN 12.4 g/dL (12.0-18.0); LYMPH # 2.2 K/uL (1.0-4.3); LYMPH % 26.6 % (20.0-40.0); MEAN CELL VOLUME 80.1 fL (80.0-94.0); MEAN CORPUSCULAR HEMOGLOBIN 25.7 pg (27.0-31.0); MEAN CORPUSCULAR HGB CONC 32.1 g/dL (33.0-37.0); MEAN PLATELET VOLUME 8.9 fL (7.2-11.7); MONO # 0.9 K/uL (0.0-0.8); NEUT # 5.1 K/uL (1.8-7.0); NEUT % 60.9 % (50.0-75.0); NRBC % 0.5 % (0.0-2.0); RBC 4.81 Mil/uL (4.40-5.90); RED CELL DISTRIBUTION WIDTH 19.2 % (11.5-14.5); WHITE BLOOD COUNT 8.4 K/uL (4.8-10.8)
[2018-08-14 05:13] LABS: INR 2.4; PARTIAL THROMBOPLASTIN TIME 74.9 SECONDS (21-34); PROTHROMBIN TIME 26.2 SECONDS (9.7-12.2)
[2018-08-14 05:27] LABS: ALB/GLOB RATIO 1.1 (1.0-2.1); ALBUMIN 3.6 g/dL (3.5-5.0); ALT/SGPT 146 U/L (21-72); AST/SGOT 135 U/L (17-59); BILIRUBIN,DIRECT 3.5 mg/dL (0.0-0.4); BLOOD UREA NITROGEN 45 mg/dL (9-20); CALCIUM 9.4 mg/dl (8.6-10.4); GFR NON-AFRICAN AMERICAN 57
[2018-08-14] MEDS: Heparin25000 units/250ml 1/2NS 25,000 UNITS/250 ML BAG IV PRN (05:30)
[2018-08-14 06:07] LABS: HEPATITIS B SURFACE AG Negative (NEGATIVE)
[2018-08-14 06:13] LABS: HEPATITIS A IGM NEGATIVE (NEGATIVE); HEPATITIS B CORE AB NEGATIVE (NEGATIVE)
[2018-08-14 06:24] LABS: HEPATITIS C ANTIBODY NEGATIVE (NEGATIVE)
--- NOTE | 2018-08-14 08:19 | CP.CCUPN ---
<Ervin Causey - Last Filed: 08/14/18 10:05> CCU Subjective - Physician Review Subjective (Free Text): 08/14/18 08:15 PGY-1 Critical Care Progress Note for Dr. Phipps Seen and examined at bedside this AM 38 yo male with pmhx of severe systolic HF, EF 13%, nonischemic cardiomyopathy, HTN, HLD, noncompliance Admitted to ICU with acute LLE DVT, PE Biventricular thrombus noted on ECHO, received tPA s/p IVC filter (08/08/18) Remains on heparin gtt Repeat ECHO (08/10) still demonstrates moderate to large thrombi involving apex and postero-lateral wall, latter being mobile with possible detached thrombus in aortic outflow tract. Less thrombus burden in LV compared to prior study, no thrombi in RA or upper IVC NPO for AICD placement today with Dr. Jones at [place] Patient to be transported back post-procedure Follow up further Cardiac recs (Dr. Mccarty) Continue to monitor CCU Objective - Vital Signs / Intake & Output Vital Signs (Last 4 hours): Vital Signs Pulse Resp BP Pulse Ox 08/14/18 05:30 77 13 110/75 96 08/14/18 05:00 78 13 98 08/14/18 04:29 110/73 Intake and Output (Last 8hrs): Intake & Output 08/13/18 08/14/18 08/14/18 22:59 06:59 14:59 Intake Total 71.2 321.2 Output Total 200 450 Balance -128.8 -128.8 Weight 101.5 kg Intake: IV 250 Intake, IV Amount 71.2 71.2 lefy wrist 71.2 71.2 Output: Urine 200 450 Urine, Voided 200 450 - Physical Exam Head: Positive for: Atraumatic, Normocephalic Pupils: Positive for: PERRL Extroacular Muscles: Positive for: EOMI Conjunctiva: Positive for: Normal Mouth: Positive for: Moist Mucous Membranes Respiratory/Chest: Positive for: Decreased Breath Sounds, Rales Cardiovascular: Positive for: Regular Rate and Rhythm, Normal S1, S2 Abdomen: Positive for: Normal Bowel Sounds. Negative for: Tenderness, Distention, Rebound, Guarding Back: Positive for: Normal Inspection Upper Extremity: Positive for: Normal Inspection. Negative for: Cyanosis, Edema Lower Extremity: Positive for: Normal Inspection, NORMAL PULSES. Negative for: Edema, CALF TENDERNESS Neurological: Positive for: CN II-XII Intact, Speech Normal Skin: Positive for: Dry, Normal Color, Cold (cool distal extremities b/l ) Psychiatric: Positive for: Alert, Oriented x 3 - Medications Active Medications: Active Medications Generic Name Dose Route Start Last Admin Trade Name Freq PRN Reason Stop Dose Admin Aspirin 81 mg 08/07/18 10:00 08/13/18 09:28 Aspirin Chewable PO 81 mg DAILY [facility] Administration Carvedilol 6.25 mg 08/11/18 08:40 08/13/18 17:53 Coreg PO 6.25 mg BID JACKELIN Administration Docusate Sodium 100 mg 08/13/18 10:00 08/13/18 17:52 Colace PO 100 mg TID JACKELIN Administration Folic Acid 1 mg 08/09/18 10:00 08/13/18 09:31 Folic Acid PO 1 mg DAILY JACKELIN Administration Furosemide 20 mg 08/12/18 10:45 08/14/18 02:49 Lasix IVP Not Given Q8H [facility] Heparin Sodium/Sodium Chloride 25,000 units in 250 mls @ 8.91 mls/hr 08/08/18 15:59 08/14/18 05:30 Heparin 00678 Units/250ml 1/2 Normal Saline IV 9 units/kg/hr .Q24H PRN 8.91 mls/hr ADJUST RATE PER PROTOCOL Administration Protocol 9 UNITS/KG/HR Morphine Sulfate 1 mg 08/13/18 14:03 08/13/18 14:47 Morphine IVP 1 mg Q4 PRN Administration Pain, moderate (4-7) Pantoprazole Sodium 40 mg 08/07/18 10:00 08/13/18 09:29 Protonix Ec Tab PO 40 mg DAILY JACKELIN Administration Rosuvastatin Calcium 5 mg 08/06/18 18:00 08/07/18 17:51 Crestor PO 5 mg QPM JACKELIN Administration Thiamine HCl 100 mg 08/09/18 10:00 08/13/18 09:29 Vitamin B1 Tab PO 100 mg DAILY JACKELIN Administration - Patient Studies Lab Studies: Lab Studies 08/14/18 08/14/18 08/14/18 Range/Units 04:53 04:53 04:53 WBC 8.4 (4.8-10.8) K/uL RBC 4.81 (4.40-5.90) Mil/uL Hgb 12.4 (12.0-18.0) g/dL Hct 38.5 (35.0-51.0) % MCV 80.1 (80.0-94.0) fL MCH 25.7 L (27.0-31.0) pg MCHC 32.1 L (33.0-37.0) g/dL RDW 19.2 H (11.5-14.5) % Plt Count 286 (130-400) K/uL MPV 8.9 (7.2-11.7) fL Neut % (Auto) 60.9 (50.0-75.0) % Lymph % (Auto) 26.6 (20.0-40.0) % [place] % (Auto) 11.0 H (0.0-10.0) % Eos % (Auto) 0.6 (0.0-4.0) % Baso % (Auto) 0.9 (0.0-2.0) % Neut # (Auto) 5.1 (1.8-7.0) K/uL Lymph # (Auto) 2.2 (1.0-4.3) K/uL [place] # (Auto) 0.9 H (0.0-0.8) K/uL Eos # (Auto) 0.0 (0.0-0.7) K/uL Baso # (Auto) 0.1 (0.0-0.2) K/uL PT 26.2 H (9.7-12.2) SECONDS INR 2.4 APTT 74.9 H D (21-34) SECONDS Protein C Activity (70-180) % Antithrombin III Activ (80-120) % activity Sodium 133 (132-148) mmol/L Potassium 3.8 (3.6-5.2) mmol/L Chloride 95 L (98-107) mmol/L Carbon Dioxide 26 (22-30) mmol/L Anion Gap 15 (10-20) BUN 45 H (9-20) mg/dL Creatinine 1.4 (0.8-1.5) mg/dL Est GFR ( Amer) > 60 Est GFR (Non-Af Amer) 57 Random Glucose 91 (75-110) mg/dL Calcium 9.4 (8.6-10.4) mg/dl Phosphorus 3.5 (2.5-4.5) mg/dL Magnesium 2.3 (1.6-2.3) mg/dL Total Bilirubin 5.4 H (0.2-1.3) mg/dL Direct Bilirubin 3.5 H (0.0-0.4) mg/dL AST 135 H (17-59) U/L ALT 146 H (21-72) U/L Alkaline Phosphatase 118 (38-126) U/L Lactate Dehydrogenase 1124 H (313-618) U/L Total Protein 6.9 (6.3-8.3) g/dL Albumin 3.6 (3.5-5.0) g/dL Globulin 3.3 (2.2-3.9) gm/dL Albumin/Globulin Ratio 1.1 (1.0-2.1) Phosphatidylserine IgG (<10) U/mL Phosphatidylserine IgA (<20) U/mL Phosphatidylserine IgM (<25) U/mL Anti-Phospholipid Intrp Hepatitis A IgM Ab (NEGATIVE) Hep Bs Antigen (NEGATIVE) Hep B Core IgM Ab (NEGATIVE) Hepatitis C Antibody (NEGATIVE) HIV 1&2 Antibody Screen (NEGATIVE) 08/14/18 08/14/18 08/09/18 Range/Units 04:53 04:53 07:18 WBC (4.8-10.8) K/uL RBC (4.40-5.90) Mil/uL Hgb (12.0-18.0) g/dL Hct (35.0-51.0) % MCV (80.0-94.0) fL MCH (27.0-31.0) pg MCHC (33.0-37.0) g/dL RDW (11.5-14.5) % Plt Count (130-400) K/uL MPV (7.2-11.7) fL Neut % (Auto) (50.0-75.0) % Lymph % (Auto) (20.0-40.0) % [place] % (Auto) (0.0-10.0) % Eos % (Auto) (0.0-4.0) % Baso % (Auto) (0.0-2.0) % Neut # (Auto) (1.8-7.0) K/uL Lymph # (Auto) (1.0-4.3) K/uL [place] # (Auto) (0.0-0.8) K/uL Eos # (Auto) (0.0-0.7) K/uL Baso # (Auto) (0.0-0.2) K/uL PT (9.7-12.2) SECONDS INR APTT (21-34) SECONDS Protein C Activity 24 L (70-180) % Antithrombin III Activ (80-120) % activity Sodium (132-148) mmol/L Potassium (3.6-5.2) mmol/L Chloride (98-107) mmol/L Carbon Dioxide (22-30) mmol/L Anion Gap (10-20) BUN (9-20) mg/dL Creatinine (0.8-1.5) mg/dL Est GFR ( Amer) Est GFR (Non-Af Amer) Random Glucose (75-110) mg/dL Calcium (8.6-10.4) mg/dl Phosphorus (2.5-4.5) mg/dL Magnesium (1.6-2.3) mg/dL Total Bilirubin (0.2-1.3) mg/dL Direct Bilirubin (0.0-0.4) mg/dL AST (17-59) U/L ALT (21-72) U/L Alkaline Phosphatase (38-126) U/L Lactate Dehydrogenase (313-618) U/L Total Protein (6.3-8.3) g/dL Albumin (3.5-5.0) g/dL Globulin (2.2-3.9) gm/dL Albumin/Globulin Ratio (1.0-2.1) Phosphatidylserine IgG (<10) U/mL Phosphatidylserine IgA (<20) U/mL Phosphatidylserine IgM (<25) U/mL Anti-Phospholipid Intrp Hepatitis A IgM Ab Negative (NEGATIVE) Hep Bs Antigen Negative (NEGATIVE) Hep B Core IgM Ab Negative (NEGATIVE) Hepatitis C Antibody Negative (NEGATIVE) HIV 1&2 Antibody Screen Negative (NEGATIVE) 08/09/18 08/08/18 Range/Units 07:18 17:35 WBC (4.8-10.8) K/uL RBC (4.40-5.90) Mil/uL Hgb (12.0-18.0) g/dL Hct (35.0-51.0) % MCV (80.0-94.0) fL MCH (27.0-31.0) pg MCHC (33.0-37.0) g/dL RDW (11.5-14.5) % Plt Count (130-400) K/uL MPV (7.2-11.7) fL Neut % (Auto) (50.0-75.0) % Lymph % (Auto) (20.0-40.0) % [place] % (Auto) (0.0-10.0) % Eos % (Auto) (0.0-4.0) % Baso % (Auto) (0.0-2.0) % Neut # (Auto) (1.8-7.0) K/uL Lymph # (Auto) (1.0-4.3) K/uL [place] # (Auto) (0.0-0.8) K/uL Eos # (Auto) (0.0-0.7) K/uL Baso # (Auto) (0.0-0.2) K/uL PT (9.7-12.2) SECONDS INR APTT (21-34) SECONDS Protein C Activity (70-180) % Antithrombin III Activ 43 L (80-120) % activity Sodium (132-148) mmol/L Potassium (3.6-5.2) mmol/L Chloride (98-107) mmol/L Carbon Dioxide (22-30) mmol/L Anion Gap (10-20) BUN (9-20) mg/dL Creatinine (0.8-1.5) mg/dL Est GFR ( Amer) Est GFR (Non-Af Amer) Random Glucose (75-110) mg/dL Calcium (8.6-10.4) mg/dl Phosphorus (2.5-4.5) mg/dL Magnesium (1.6-2.3) mg/dL Total Bilirubin (0.2-1.3) mg/dL Direct Bilirubin (0.0-0.4) mg/dL AST (17-59) U/L ALT (21-72) U/L Alkaline Phosphatase (38-126) U/L Lactate Dehydrogenase (313-618) U/L Total Protein (6.3-8.3) g/dL Albumin (3.5-5.0) g/dL Globulin (2.2-3.9) gm/dL Albumin/Globulin Ratio (1.0-2.1) Phosphatidylserine IgG <10 (<10) U/mL Phosphatidylserine IgA <20 (<20) U/mL Phosphatidylserine IgM <25 (<25) U/mL Anti-Phospholipid Intrp see note Hepatitis A IgM Ab (NEGATIVE) Hep Bs Antigen (NEGATIVE) Hep B Core IgM Ab (NEGATIVE) Hepatitis C Antibody (NEGATIVE) HIV 1&2 Antibody Screen (NEGATIVE) Laboratory Results - last 24 hr 08/08/18 08/09/18 08/09/18 17:35 07:18 07:18 WBC RBC Hgb Hct MCV MCH MCHC RDW Plt Count MPV Neut % (Auto) Lymph % (Auto) [place] % (Auto) Eos % (Auto) Baso % (Auto) Neut # (Auto) Lymph # (Auto) [place] # (Auto) Eos # (Auto) Baso # (Auto) PT INR APTT Protein C Activity 24 L Antithrombin III Activ 43 L Sodium Potassium Chloride Carbon Dioxide Anion Gap BUN Creatinine Est GFR ( Amer) Est GFR (Non-Af Amer) Random Glucose Calcium Phosphorus Magnesium Total Bilirubin Direct Bilirubin AST ALT Alkaline Phosphatase Lactate Dehydrogenase Total Protein Albumin Globulin Albumin/Globulin Ratio Phosphatidylserine IgG <10 Phosphatidylserine IgA <20 Phosphatidylserine IgM <25 Anti-Phospholipid Intrp see note Hepatitis A IgM Ab Hep Bs Antigen Hep B Core IgM Ab Hepatitis C Antibody HIV 1&2 Antibody Screen 08/14/18 08/14/18 08/14/18 04:53 04:53 04:53 WBC RBC Hgb Hct MCV MCH MCHC RDW Plt Count MPV Neut % (Auto) Lymph % (Auto) [place] % (Auto) Eos % (Auto) Baso % (Auto) Neut # (Auto) Lymph # (Auto) [place] # (Auto) Eos # (Auto) Baso # (Auto) PT INR APTT Protein C Activity Antithrombin III Activ Sodium 133 Potassium 3.8 Chloride 95 L Carbon Dioxide 26 Anion Gap 15 BUN 45 H Creatinine 1.4 Est GFR ( Amer) > 60 Est GFR (Non-Af Amer) 57 Random Glucose 91 Calcium 9.4 Phosphorus 3.5 Magnesium 2.3 Total Bilirubin 5.4 H Direct Bilirubin 3.5 H AST 135 H ALT 146 H Alkaline Phosphatase 118 Lactate Dehydrogenase 1124 H Total Protein 6.9 Albumin 3.6 Globulin 3.3 Albumin/Globulin Ratio 1.1 Phosphatidylserine IgG Phosphatidylserine IgA Phosphatidylserine IgM Anti-Phospholipid Intrp Hepatitis A IgM Ab Negative Hep Bs Antigen Negative Hep B Core IgM Ab Negative Hepatitis C Antibody Negative HIV 1&2 Antibody Screen Negative 08/14/18 08/14/18 04:53 04:53 WBC 8.4 RBC 4.81 Hgb 12.4 Hct 38.5 MCV 80.1 MCH 25.7 L MCHC 32.1 L RDW 19.2 H Plt Count 286 MPV 8.9 Neut % (Auto) 60.9 Lymph % (Auto) 26.6 [place] % (Auto) 11.0 H Eos % (Auto) 0.6 Baso % (Auto) 0.9 Neut # (Auto) 5.1 Lymph # (Auto) 2.2 [place] # (Auto) 0.9 H Eos # (Auto) 0.0 Baso # (Auto) 0.1 PT 26.2 H INR 2.4 APTT 74.9 H D Protein C Activity Antithrombin III Activ Sodium Potassium Chloride Carbon Dioxide Anion Gap BUN Creatinine Est GFR ( Amer) Est GFR (Non-Af Amer) Random Glucose Calcium Phosphorus Magnesium Total Bilirubin Direct Bilirubin AST ALT Alkaline Phosphatase Lactate Dehydrogenase Total Protein Albumin Globulin Albumin/Globulin Ratio Phosphatidylserine IgG Phosphatidylserine IgA Phosphatidylserine IgM Anti-Phospholipid Intrp Hepatitis A IgM Ab Hep Bs Antigen Hep B Core IgM Ab Hepatitis C Antibody HIV 1&2 Antibody Screen Radiology Impressions: Radiology Impressions Abdomen Ultrasound 08/13/18 10:50 IMPRESSION: Hepatomegaly. Echogenic liver may be seen in setting of hepatic parenchymal disease or fatty infiltration. Small perihepatic and perisplenic ascites. The gallbladder is contracted limiting evaluation. Gallbladder wall thickening which measures approximately 6 mm. Negative sonographic [place]'s sign. No calcified gallstones identified. Chest X-Ray 08/13/18 13:36 IMPRESSION: Cardiomegaly. Hazy opacity in the right mid lung zone may reflect pneumonia. Review of Systems - Review of Systems All systems: reviewed and no additional remarkable complaints except Review of Systems: as per HPI Critical Care Progress Note - Nutrition Nutrition: Nutrition Category Date Time Status NPO Diet [DIET] Diets 08/14/18 Breakfast Active <Rodo Phipps S - Last Filed: 08/14/18 16:35> CCU Subjective - Physician Review Critical Care Time Spent (in minutes): 40 CCU Objective - Vital Signs / Intake & Output Intake and Output (Last 8hrs): Intake & Output 08/14/18 08/14/18 08/14/18 06:59 14:59 22:59 Intake Total 321.2 53.4 Output Total 450 350 Balance -128.8 -296.6 Weight 223 lb 12.307 oz 217 lb 9.54 oz Intake: IV 250 Intake, IV Amount 71.2 53.4 lefy wrist 71.2 53.4 Output: Urine 450 350 Urine, Voided 450 350 Other: # Voids Urine, Voided 1 - Medications Active Medications: Active Medications Generic Name Dose Route Start Last Admin Trade Name Freq PRN Reason Stop Dose Admin Aspirin 81 mg 08/07/18 10:00 08/14/18 09:27 Aspirin Chewable PO 81 mg DAILY [facility] Administration Carvedilol 6.25 mg 08/11/18 08:40 08/14/18 09:29 Coreg PO 6.25 mg BID [facility] Administration Docusate Sodium 100 mg 08/13/18 10:00 08/14/18 15:27 Colace PO 100 mg TID [facility] Administration Folic Acid 1 mg 08/09/18 10:00 08/14/18 09:29 Folic Acid PO 1 mg DAILY [facility] Administration Furosemide 20 mg 08/14/18 18:00 Lasix IVP BID [facility] Heparin Sodium/Sodium Chloride 25,000 units in 250 mls @ 8.91 mls/hr 08/08/18 15:59 08/14/18 05:30 Heparin 23924 Units/250ml 1/2 Normal Saline IV 9 units/kg/hr .Q24H PRN 8.91 mls/hr ADJUST RATE PER PROTOCOL Administration Protocol 9 UNITS/KG/HR Morphine Sulfate 1 mg 08/13/18 14:03 08/13/18 14:47 Morphine IVP 1 mg Q4 PRN Administration Pain, moderate (4-7) Pantoprazole Sodium 40 mg 08/07/18 10:00 08/14/18 09:29 Protonix Ec Tab PO 40 mg DAILY JACKELIN Administration Rosuvastatin Calcium 5 mg 08/06/18 18:00 08/07/18 17:51 Crestor PO 5 mg QPM JACKELIN Administration Thiamine HCl 100 mg 08/09/18 10:00 08/14/18 09:29 Vitamin B1 Tab PO 100 mg DAILY JACKELIN Administration - Patient Studies Lab Studies: Lab Studies 08/14/18 08/14/18 08/14/18 Range/Units 04:53 04:53 04:53 WBC 8.4 (4.8-10.8) K/uL RBC 4.81 (4.40-5.90) Mil/uL Hgb 12.4 (12.0-18.0) g/dL Hct 38.5 (35.0-51.0) % MCV 80.1 (80.0-94.0) fL MCH 25.7 L (27.0-31.0) pg MCHC 32.1 L (33.0-37.0) g/dL RDW 19.2 H (11.5-14.5) % Plt Count 286 (130-400) K/uL MPV 8.9 (7.2-11.7) fL Neut % (Auto) 60.9 (50.0-75.0) % Lymph % (Auto) 26.6 (20.0-40.0) % [place] % (Auto) 11.0 H (0.0-10.0) % Eos % (Auto) 0.6 (0.0-4.0) % Baso % (Auto) 0.9 (0.0-2.0) % Neut # (Auto) 5.1 (1.8-7.0) K/uL Lymph # (Auto) 2.2 (1.0-4.3) K/uL [place] # (Auto) 0.9 H (0.0-0.8) K/uL Eos # (Auto) 0.0 (0.0-0.7) K/uL Baso # (Auto) 0.1 (0.0-0.2) K/uL PT 26.2 H (9.7-12.2) SECONDS INR 2.4 APTT 74.9 H D (21-34) SECONDS Protein C Antigen (70-140) % Protein C Activity (70-180) % Antithrombin III Activ (80-120) % activity Sodium 133 (132-148) mmol/L Potassium 3.8 (3.6-5.2) mmol/L Chloride 95 L (98-107) mmol/L Carbon Dioxide 26 (22-30) mmol/L Anion Gap 15 (10-20) BUN 45 H (9-20) mg/dL Creatinine 1.4 (0.8-1.5) mg/dL Est GFR ( Amer) > 60 Est GFR (Non-Af Amer) 57 Random Glucose 91 (75-110) mg/dL Calcium 9.4 (8.6-10.4) mg/dl Phosphorus 3.5 (2.5-4.5) mg/dL Magnesium 2.3 (1.6-2.3) mg/dL Total Bilirubin 5.4 H (0.2-1.3) mg/dL Direct Bilirubin 3.5 H (0.0-0.4) mg/dL AST 135 H (17-59) U/L ALT 146 H (21-72) U/L Alkaline Phosphatase 118 (38-126) U/L Lactate Dehydrogenase 1124 H (313-618) U/L Total Protein 6.9 (6.3-8.3) g/dL Albumin 3.6 (3.5-5.0) g/dL Globulin 3.3 (2.2-3.9) gm/dL Albumin/Globulin Ratio 1.1 (1.0-2.1) Hepatitis A IgM Ab (NEGATIVE) Hep Bs Antigen (NEGATIVE) Hep B Core IgM Ab (NEGATIVE) Hepatitis C Antibody (NEGATIVE) HIV 1&2 Antibody Screen (NEGATIVE) 08/14/18 08/14/18 08/09/18 Range/Units 04:53 04:53 07:18 WBC (4.8-10.8) K/uL RBC (4.40-5.90) Mil/uL Hgb (12.0-18.0) g/dL Hct (35.0-51.0) % MCV (80.0-94.0) fL MCH (27.0-31.0) pg MCHC (33.0-37.0) g/dL RDW (11.5-14.5) % Plt Count (130-400) K/uL MPV (7.2-11.7) fL Neut % (Auto) (50.0-75.0) % Lymph % (Auto) (20.0-40.0) % [place] % (Auto) (0.0-10.0) % Eos % (Auto) (0.0-4.0) % Baso % (Auto) (0.0-2.0) % Neut # (Auto) (1.8-7.0) K/uL Lymph # (Auto) (1.0-4.3) K/uL [place] # (Auto) (0.0-0.8) K/uL Eos # (Auto) (0.0-0.7) K/uL Baso # (Auto) (0.0-0.2) K/uL PT (9.7-12.2) SECONDS INR APTT (21-34) SECONDS Protein C Antigen 33 L (70-140) % Protein C Activity (70-180) % Antithrombin III Activ (80-120) % activity Sodium (132-148) mmol/L Potassium (3.6-5.2) mmol/L Chloride (98-107) mmol/L Carbon Dioxide (22-30) mmol/L Anion Gap (10-20) BUN (9-20) mg/dL Creatinine (0.8-1.5) mg/dL Est GFR ( Amer) Est GFR (Non-Af Amer) Random Glucose (75-110) mg/dL Calcium (8.6-10.4) mg/dl Phosphorus (2.5-4.5) mg/dL Magnesium (1.6-2.3) mg/dL Total Bilirubin (0.2-1.3) mg/dL Direct Bilirubin (0.0-0.4) mg/dL AST (17-59) U/L ALT (21-72) U/L Alkaline Phosphatase (38-126) U/L Lactate Dehydrogenase (313-618) U/L Total Protein (6.3-8.3) g/dL Albumin (3.5-5.0) g/dL Globulin (2.2-3.9) gm/dL Albumin/Globulin Ratio (1.0-2.1) Hepatitis A IgM Ab Negative (NEGATIVE) Hep Bs Antigen Negative (NEGATIVE) Hep B Core IgM Ab Negative (NEGATIVE) Hepatitis C Antibody Negative (NEGATIVE) HIV 1&2 Antibody Screen Negative (NEGATIVE) 08/09/18 08/09/18 Range/Units 07:18 07:18 WBC (4.8-10.8) K/uL RBC (4.40-5.90) Mil/uL Hgb (12.0-18.0) g/dL Hct (35.0-51.0) % MCV (80.0-94.0) fL MCH (27.0-31.0) pg MCHC (33.0-37.0) g/dL RDW (11.5-14.5) % Plt Count (130-400) K/uL MPV (7.2-11.7) fL Neut % (Auto) (50.0-75.0) % Lymph % (Auto) (20.0-40.0) % [place] % (Auto) (0.0-10.0) % Eos % (Auto) (0.0-4.0) % Baso % (Auto) (0.0-2.0) % Neut # (Auto) (1.8-7.0) K/uL Lymph # (Auto) (1.0-4.3) K/uL [place] # (Auto) (0.0-0.8) K/uL Eos # (Auto) (0.0-0.7) K/uL Baso # (Auto) (0.0-0.2) K/uL PT (9.7-12.2) SECONDS INR APTT (21-34) SECONDS Protein C Antigen (70-140) % Protein C Activity 24 L (70-180) % Antithrombin III Activ 43 L (80-120) % activity Sodium (132-148) mmol/L Potassium (3.6-5.2) mmol/L Chloride (98-107) mmol/L Carbon Dioxide (22-30) mmol/L Anion Gap (10-20) BUN (9-20) mg/dL Creatinine (0.8-1.5) mg/dL Est GFR ( Amer) Est GFR (Non-Af Amer) Random Glucose (75-110) mg/dL Calcium (8.6-10.4) mg/dl Phosphorus (2.5-4.5) mg/dL Magnesium (1.6-2.3) mg/dL Total Bilirubin (0.2-1.3) mg/dL Direct Bilirubin (0.0-0.4) mg/dL AST (17-59) U/L ALT (21-72) U/L Alkaline Phosphatase (38-126) U/L Lactate Dehydrogenase (313-618) U/L Total Protein (6.3-8.3) g/dL Albumin (3.5-5.0) g/dL Globulin (2.2-3.9) gm/dL Albumin/Globulin Ratio (1.0-2.1) Hepatitis A IgM Ab (NEGATIVE) Hep Bs Antigen (NEGATIVE) Hep B Core IgM Ab (NEGATIVE) Hepatitis C Antibody (NEGATIVE) HIV 1&2 Antibody Screen (NEGATIVE) Laboratory Results - last 24 hr 08/09/18 08/09/18 08/09/18 07:18 07:18 07:18 WBC RBC Hgb Hct MCV MCH MCHC RDW Plt Count MPV Neut % (Auto) Lymph % (Auto) [place] % (Auto) Eos % (Auto) Baso % (Auto) Neut # (Auto) Lymph # (Auto) [place] # (Auto) Eos # (Auto) Baso # (Auto) PT INR APTT Protein C Antigen 33 L Protein C Activity 24 L Antithrombin III Activ 43 L Sodium Potassium Chloride Carbon Dioxide Anion Gap BUN Creatinine Est GFR ( Amer) Est GFR (Non-Af Amer) Random Glucose Calcium Phosphorus Magnesium Total Bilirubin Direct Bilirubin AST ALT Alkaline Phosphatase Lactate Dehydrogenase Total Protein Albumin Globulin Albumin/Globulin Ratio Hepatitis A IgM Ab Hep Bs Antigen Hep B Core IgM Ab Hepatitis C Antibody HIV 1&2 Antibody Screen 08/14/18 08/14/18 08/14/18 04:53 04:53 04:53 WBC RBC Hgb Hct MCV MCH MCHC RDW Plt Count MPV Neut % (Auto) Lymph % (Auto) [place] % (Auto) Eos % (Auto) Baso % (Auto) Neut # (Auto) Lymph # (Auto) [place] # (Auto) Eos # (Auto) Baso # (Auto) PT INR APTT Protein C Antigen Protein C Activity Antithrombin III Activ Sodium 133 Potassium 3.8 Chloride 95 L Carbon Dioxide 26 Anion Gap 15 BUN 45 H Creatinine 1.4 Est GFR ( Amer) > 60 Est GFR (Non-Af Amer) 57 Random Glucose 91 Calcium 9.4 Phosphorus 3.5 Magnesium 2.3 Total Bilirubin 5.4 H Direct Bilirubin 3.5 H AST 135 H ALT 146 H Alkaline Phosphatase 118 Lactate Dehydrogenase 1124 H Total Protein 6.9 Albumin 3.6 Globulin 3.3 Albumin/Globulin Ratio 1.1 Hepatitis A IgM Ab Negative Hep Bs Antigen Negative Hep B Core IgM Ab Negative Hepatitis C Antibody Negative HIV 1&2 Antibody Screen Negative 08/14/18 08/14/18 04:53 04:53 WBC 8.4 RBC 4.81 Hgb 12.4 Hct 38.5 MCV 80.1 MCH 25.7 L MCHC 32.1 L RDW 19.2 H Plt Count 286 MPV 8.9 Neut % (Auto) 60.9 Lymph % (Auto) 26.6 [place] % (Auto) 11.0 H Eos % (Auto) 0.6 Baso % (Auto) 0.9 Neut # (Auto) 5.1 Lymph # (Auto) 2.2 [place] # (Auto) 0.9 H Eos # (Auto) 0.0 Baso # (Auto) 0.1 PT 26.2 H INR 2.4 APTT 74.9 H D Protein C Antigen Protein C Activity Antithrombin III Activ Sodium Potassium Chloride Carbon Dioxide Anion Gap BUN Creatinine Est GFR ( Amer) Est GFR (Non-Af Amer) Random Glucose Calcium Phosphorus Magnesium Total Bilirubin Direct Bilirubin AST ALT Alkaline Phosphatase Lactate Dehydrogenase Total Protein Albumin Globulin Albumin/Globulin Ratio Hepatitis A IgM Ab Hep Bs Antigen Hep B Core IgM Ab Hepatitis C Antibody HIV 1&2 Antibody Screen Critical Care Progress Note - Nutrition Nutrition: Nutrition Category Date Time Status Heart Healthy Diet [DIET] Diets 08/14/18 Lunch Active Attending/Attestation - Attestation I have personally seen and examined this patient.: Yes I have fully participated in the care of the patient.: Yes I have reviewed all pertinent clinical information: Yes Notes (Text): 08/14/18 16:34 Patient seen and examined in the intensive care unit. Case discussed with housestaff in the morning rounds. AICD canceled because of elevated INR On vitamin K Continue heparin drip Switch to oral anticoagulant post AICD and cardiac cath
[2018-08-14] MEDS ORDERED: Phytonadione 10 mg/ml Inj (Adult) SC ONE (09:15)
[2018-08-14] MEDS: Pantoprazole 40 mg EC Tab PO SCH (09:29)
--- NOTE | 2018-08-14 10:50 | CP.PCM.PN ---
Subjective - Date & Time of Evaluation Date of Evaluation: 08/14/18 Time of Evaluation: 10:47 - Subjective Subjective: PGY-[address] Purcell Pt has pain and ecchymosis on b/l arm since the day of TPA. No other acute complaints. Breathing and dyspneic chest pain better Objective - Vital Signs/Intake and Output Vital Signs (last 24 hours): Temp Pulse Resp BP Pulse Ox 98.5 F 77 13 100/78 96 08/14/18 04:00 08/14/18 05:30 08/14/18 05:30 08/14/18 09:44 08/14/18 05:30 Intake and Output: 08/14/18 08/14/18 06:59 18:59 Intake Total 356.8 Output Total 650 Balance -293.2 - Medications Medications: Current Medications Aspirin (Aspirin Chewable) 81 mg PO DAILY [facility] Last Admin: 08/14/18 09:27 Dose: 81 mg Carvedilol (Coreg) 6.25 mg PO BID [facility] Last Admin: 08/14/18 09:29 Dose: 6.25 mg Docusate Sodium (Colace) 100 mg PO TID [facility] Last Admin: 08/14/18 09:29 Dose: 100 mg Folic Acid (Folic Acid) 1 mg PO DAILY [facility] Last Admin: 08/14/18 09:29 Dose: 1 mg Furosemide (Lasix) 20 mg IVP Q8H [facility] Last Admin: 08/14/18 09:44 Dose: 20 mg Heparin Sodium/Sodium Chloride (Heparin 77107 Units/250ml 1/2 Normal Saline) 25,000 units in 250 mls @ 8.91 mls/hr IV .Q24H PRN; Protocol PRN Reason: ADJUST RATE PER PROTOCOL Last Admin: 08/14/18 05:30 Dose: 9 units/kg/hr, 8.91 mls/hr Morphine Sulfate (Morphine) 1 mg IVP Q4 PRN PRN Reason: Pain, moderate (4-7) Last Admin: 08/13/18 14:47 Dose: 1 mg Pantoprazole Sodium (Protonix Ec Tab) 40 mg PO DAILY [facility] Last Admin: 08/14/18 09:29 Dose: 40 mg Rosuvastatin Calcium (Crestor) 5 mg PO QPM [facility] Last Admin: 08/07/18 17:51 Dose: 5 mg Thiamine HCl (Vitamin B1 Tab) 100 mg PO DAILY [facility] Last Admin: 08/14/18 09:29 Dose: 100 mg - Labs Labs: 08/14/18 04:53 08/14/18 04:53 PT 26.2 SECONDS (9.7-12.2) H 08/14/18 04:53 INR 2.4 08/14/18 04:53 APTT 74.9 SECONDS (21-34) H D 08/14/18 04:53 - Constitutional Appears: No Acute Distress - Head Exam Head Exam: ATRAUMATIC, NORMAL INSPECTION, NORMOCEPHALIC - Eye Exam Eye Exam: EOMI, Normal appearance, PERRL, Scleral icterus - ENT Exam ENT Exam: Mucous Membranes Moist - Neck Exam Additional comments: supple - Respiratory Exam Respiratory Exam: Clear to Ausculation Bilateral. absent: Rales, Rhonchi, Wheezes - Cardiovascular Exam Cardiovascular Exam: REGULAR RHYTHM, +S1. absent: Murmur - GI/Abdominal Exam GI & Abdominal Exam: Soft, Tenderness (mild), Normal Bowel Sounds - Extremities Exam Extremities Exam: absent: Calf Tenderness, Pedal Edema - Neurological Exam Neurological Exam: Alert, Awake, Oriented x3 - Psychiatric Exam Psychiatric exam: Normal Affect, Normal Mood - Skin Skin Exam: Dry, Warm Assessment and Plan - Assessment and Plan (Free Text) Plan: Mr Love, 38 AAM, former smoker with PMHx non-ischemic cardiomyopathy (EF 13) non-compliant with life-vest, not-ambulating for a month, came in for dyspnea and dyspnic chest pain and was found to have LLE DVT, R main PE, and b-vent cardiac thrombi. He is s/p TPA and IVC (08/08), pending decision on AICD. MELD-Na 28 (20% 3 month mortality) class C (periop abd surgery is 82%). Not a candidate for surgical thrombectomy (1) Acute renal failure ATN @ Cre 2.8 [worst] - resolving, stablizing at 1.4-1.5 secondary to contrast nephropathy Oliguria resolved. stable lytes and volume status. Continue strict i/o Did not have emergent dialysis due to TPA Salt loading to prevent contrast nephropathy as tolerated by cardiac status (2) b-vent cardiac thrombi s/p TPA Pulmonary embolism with DVT on heparin gtt. Not bridging yet due to AICD today Repeat ECHO (08/10) official report still demonstrates moderate to large thrombi involving apex and postero-lateral wall, latter being mobile with possible detached thrombus in aortic outflow tract; Less thrombus burden in LV compared to prior study, no thrombi in RA or upper IVC (3) Severe non-ischemic cardiomyopathy, systolic CHF, acute on chronic - improving AICD at [facility] delayed till Sunday due to INR Continue to monitor for volume overloaded leg edema resolved, no JVD, lungs no crackes On ASA, coreg recommend to Decresae lasix to 20 IV bid (4) Acute liver injury Elevated INR 2.4 with transaminitis with mild abdominal pain MELD-Na 28 (20% 3 month mortality) class C (periop abd surgery is 82%). Likely due to ecchymosis dissolving s/p TPA, H/H stable, CBD 3mm Hep panel, HIV neg s/p vit K (5) Metabolic acidosis - resolved Respiratory alkalosis likely from dyspnea due to PE - improving s/r/d/w Dr Purcell
--- NOTE | 2018-08-14 14:48 | CP.PCM.PN ---
<Jeromy Duncan - Last Filed: 08/14/18 16:10> Subjective - Date & Time of Evaluation Date of Evaluation: 08/14/18 Time of Evaluation: 10:35 - Subjective Subjective: PGY2 Cardiology Note for Dr. Mccarty Patient seen and examined this morning at bedside. No acute events overnight as per nursing staff. Patient is no longer coughing but states that he is still feels mildly short of breath. He is still experiencing some pain in his legs. He had difficulty with PT today due to pain in his legs but was able to complete his session. Denies any chest pain at this time. Objective - Vital Signs/Intake and Output Vital Signs (last 24 hours): Temp Pulse Resp BP Pulse Ox 97.6 F 80 16 100/69 90 L 08/14/18 12:00 08/14/18 12:04 08/14/18 12:04 08/14/18 12:04 08/14/18 12:04 Intake and Output: 08/14/18 08/14/18 06:59 18:59 Intake Total 356.8 53.4 Output Total 650 350 Balance -293.2 -296.6 - Medications Medications: Current Medications Aspirin (Aspirin Chewable) 81 mg PO DAILY [facility] Last Admin: 08/14/18 09:27 Dose: 81 mg Carvedilol (Coreg) 6.25 mg PO BID [facility] Last Admin: 08/14/18 09:29 Dose: 6.25 mg Docusate Sodium (Colace) 100 mg PO TID [facility] Last Admin: 08/14/18 09:29 Dose: 100 mg Folic Acid (Folic Acid) 1 mg PO DAILY [facility] Last Admin: 08/14/18 09:29 Dose: 1 mg Furosemide (Lasix) 20 mg IVP Q8H [facility] Last Admin: 08/14/18 09:44 Dose: 20 mg Heparin Sodium/Sodium Chloride (Heparin 95414 Units/250ml 1/2 Normal Saline) 25,000 units in 250 mls @ 8.91 mls/hr IV .Q24H PRN; Protocol PRN Reason: ADJUST RATE PER PROTOCOL Last Admin: 08/14/18 05:30 Dose: 9 units/kg/hr, 8.91 mls/hr Morphine Sulfate (Morphine) 1 mg IVP Q4 PRN PRN Reason: Pain, moderate (4-7) Last Admin: 08/13/18 14:47 Dose: 1 mg Pantoprazole Sodium (Protonix Ec Tab) 40 mg PO DAILY [facility] Last Admin: 08/14/18 09:29 Dose: 40 mg Rosuvastatin Calcium (Crestor) 5 mg PO QPM [facility] Last Admin: 08/07/18 17:51 Dose: 5 mg Thiamine HCl (Vitamin B1 Tab) 100 mg PO DAILY [facility] Last Admin: 08/14/18 09:29 Dose: 100 mg - Labs Labs: 08/14/18 04:53 08/14/18 04:53 PT 26.2 SECONDS (9.7-12.2) H 08/14/18 04:53 INR 2.4 08/14/18 04:53 APTT 74.9 SECONDS (21-34) H D 08/14/18 04:53 - Additional Findings Additional findings: - Constitutional Appears: Non-toxic, No Acute Distress - Head Exam Head Exam: ATRAUMATIC, NORMAL INSPECTION, NORMOCEPHALIC - Eye Exam Eye Exam: EOMI, Normal appearance - ENT Exam ENT Exam: Mucous Membranes Moist - Respiratory Exam Respiratory Exam: Decreased Breath Sounds, Clear to Ausculation Bilateral. absent: Accessory Muscle Use, Rales, Rhonchi, Wheezes, Respiratory Distress - Cardiovascular Exam Cardiovascular Exam: REGULAR RHYTHM, RRR, +S1, +S2. absent: JVD - GI/Abdominal Exam GI & Abdominal Exam: Soft, Normal Bowel Sounds. absent: Tenderness - Extremities Exam Extremities Exam: Calf Tenderness (left calf ). absent: Pedal Edema - Neurological Exam Neurological Exam: Alert, Awake, Oriented x3 - Psychiatric Exam Psychiatric exam: Flat Affect - Skin Skin Exam: absent: Normal Color (ecchymosis on the right arm) Assessment and Plan - Assessment and Plan (Free Text) Plan: Discussed with patient and his mother the importance of compliance with his medications and his doctor visits due to the severity of his condition. He is planning on following up in the [email or web address] upon discharge as he has been seen there in the past. He knows that his heart is not functioning as it is supposed to be and understands that it will likely never improve. He was also instructed that in addition to following up with Dr. Mccarty, he will also need to follow up with a Heart Failure clinic once he is ultimately discharge (which will not be until he is more stable). Systolic Heart Failure - bi-ventricular failure Nonischemic Cardiomyopathy Paroxysmal Vtach EP Motor Vehicle Examiner consulted, Dr. Jones, * Consult for AICD placement evaluation * He has persistently decreased LVEF (first seen on ECHO 08/19/17, EF <15%) * Patient experienced multiple events of non-sustained Vtach throughout the night of 08/08 to morning of 08/09. * Patient has not been a good candidate for heart transplant or life vest due to non compliance in the past. AICD placement cancelled for today due to elevated INR * given Vitamin K+ 10mg IV once * will re-evaluate tomorrow morning * AICD placement will be rescheduled either tomorrow or Sunday with Dr. Jones, if INR normalizes * patient will be transferred to [facility] for AICD placement, then will return to [facility] after completion of procedure. Medications: * Aspirin 81 mg PO daily * Heparin drip * Coreg 6.25 mg BID * Crestor 5 mg PO daily - on hold due to transaminitis * Lasix 20mg IVP q8h Pulmonary Embolism Thrombus in Right Atrium (resolved) Thrombus in Left Ventricle DVT - left leg Vascular Surgery consulted, Dr. Alvares * s/p IVC filter placed on 08/08/2018 CTA Chest: Filling defect arising within distal R main pulmonary artery involving distal pulmonary artery branches. No evidence of saddle embolus. ECHO on 08/06 showed thrombus in Right Atrium and LV. Likely two separate processes. * tPa was given on 08/07. Repeat ECHO on 08/08 showed persistent clot attached to LV wall, but resolution of thrombus in right ventricle. * Patient will need bubble study to r/o shunt once clots are resolved and he is more stable. Lower Extremity Doppler * Left: acute DVT of the left distal popliteal, posterior tibial and peroneal veins, with moderate reduction of the venous return. Pulsatile venous flow noted of the left side. * Right: No evidence of deep or superficial vein thrombosis of the right lower extremity. Pulsatile venous flow noted of the right side. Patient will need to be continued on anti-coagulation therapy upon discharge. * Warfarin vs. Xarelto Vs. Eliquis; concern with Hx of noncompliance * Discussed with patient the importance of establishing care with a PMD for continued routine maintenance upon discharge. He reports understanding and agreement. He is to follow up in the [facility] in the basement of [facility] upon discharge. 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 Continue to monitor Hepatic Insufficiency Improving continue to monitor Hold statin until normalization of transaminitis Case discussed with Dr. Lul Duncan PGY2 <Alfie Mccarty - Last Filed: 08/14/18 22:40> Objective - Vital Signs/Intake and Output Vital Signs (last 24 hours): Temp Pulse Resp BP Pulse Ox 97.6 F 83 12 103/72 93 L 08/14/18 20:00 08/14/18 21:04 08/14/18 21:04 08/14/18 22:04 08/14/18 21:00 Intake and Output: 08/14/18 08/15/18 18:59 06:59 Intake Total 381.8 160.6 Output Total 700 425 Balance -318.2 -264.4 - Medications Medications: Current Medications Aspirin (Aspirin Chewable) 81 mg PO DAILY [facility] Last Admin: 08/14/18 09:27 Dose: 81 mg Carvedilol (Coreg) 6.25 mg PO BID [facility] Last Admin: 08/14/18 17:25 Dose: 6.25 mg Docusate Sodium (Colace) 100 mg PO TID [facility] Last Admin: 08/14/18 17:25 Dose: 100 mg Folic Acid (Folic Acid) 1 mg PO DAILY [facility] Last Admin: 08/14/18 09:29 Dose: 1 mg Furosemide (Lasix) 20 mg IVP BID [facility] Last Admin: 08/14/18 17:25 Dose: 20 mg Heparin Sodium/Sodium Chloride (Heparin 84639 Units/250ml 1/2 Normal Saline) 25,000 units in 250 mls @ 8.91 mls/hr IV .Q24H PRN; Protocol PRN Reason: ADJUST RATE PER PROTOCOL Last Admin: 08/14/18 05:30 Dose: 9 units/kg/hr, 8.91 mls/hr Morphine Sulfate (Morphine) 1 mg IVP Q4 PRN PRN Reason: Pain, moderate (4-7) Last Admin: 08/13/18 14:47 Dose: 1 mg Pantoprazole Sodium (Protonix Ec Tab) 40 mg PO DAILY [facility] Last Admin: 08/14/18 09:29 Dose: 40 mg Rosuvastatin Calcium (Crestor) 5 mg PO QPM [facility] Last Admin: 08/07/18 17:51 Dose: 5 mg Thiamine HCl (Vitamin B1 Tab) 100 mg PO DAILY [facility] Last Admin: 08/14/18 09:29 Dose: 100 mg - Labs Labs: 08/14/18 04:53 08/14/18 04:53 PT 26.2 SECONDS (9.7-12.2) H 08/14/18 04:53 INR 2.4 08/14/18 04:53 APTT 74.9 SECONDS (21-34) H D 08/14/18 04:53 Assessment and Plan - Assessment and Plan (Free Text) Plan: Patient seen, examined and evaluated personally by me. Plan of care d/w the medical transcription radiology and as documented
--- NOTE | 2018-08-14 17:17 | CP.PCM.CON ---
History of Present Illness - History of Present Illness History of Present Illness: This is a 38 year old man with abnormal liver enzymes. Patient has a history of heart failure with reduced ejection fraction (EF 13.59 %, ECHO 01/2018), non-ischemic cardiomyopathy, HTN, non-compliance with medications, admitted with bilateral leg swelling and tenderness (L>R), shortness of breath, and pleuritic chest pain that began about 1 month prior to admission. LLE DVT and pulmonary embolus were diagnosed; patient was started on heparin and an IVC filter was placed. Echocardiogram showed thrombi in the RA and LV. GI is consulted for elevated liver enzymes: On admission 08/06/2018, AST 67, ALT 50, ALKP 63, TBILI 3.7. On 08/08/2018, there was a marked increase in transaminases: AST 857, ALT 336, ALKP 49, TBILI 3.5. Since then, the transaminases have come down, but the total bilirubin has increased: On 08/14/2018, AST 135, ALT 146, ALKP 118, TBILI 5.4, DBILI 3.5. Of note, there was a hypotensive episode early in the morning 08/07/2018: BP down to 73/55 at 04:42. CT scan 08/07/2018 showed mild hepatomegaly and fatty liver. Sonogram 08/13/2018 echogenic liver consistent with fatty liver, patent main portal vein, no biliary dilatation, small perihepatic ascites. Hepatitis B surface antigen and hepatitis C antibody were negative. Patient denies having hepatitis, jaundice, family history of liver disease. He complains of abdominal bloating and fullness after eating, which limits the amount of food he can eat. He denies vomiting, difficulty swallowing, heartburn. He had diarrhea up to five times daily prior to admission, but has had infrequent bowel movements since he was hospitalized. He denies having rec joshua bleeding. Review of Systems - Review of Systems All systems: reviewed and no additional remarkable complaints except - Constitutional Constitutional: absent: Chills, Fever - Cardiovascular Cardiovascular: Chest Pain, Dyspnea - Respiratory Respiratory: Dyspnea - Gastrointestinal Gastrointestinal: Constipation, Diarrhea. absent: Abdominal Pain, Dysphagia, Heartburn, Hematochezia, Nausea, Vomiting Past Patient History - Infectious Disease Hx of Infectious Diseases: None - Past Medical History & Family History Past Medical History?: Yes Past Family History: Reviewed and not pertinent - Past Social History Smoking Status: Former Smoker Alcohol: None Drugs: Denies Home Situation {Lives}: With Family - CARDIAC Hx Congestive Heart Failure: Yes Hx Hypertension: Yes - PULMONARY Hx Respiratory Disorders: Yes Hx Pulmonary Edema: Yes - NEUROLOGICAL Hx Neurological Disorder: No - HEENT Hx HEENT Problems: No - RENAL Hx Chronic Kidney Disease: No - ENDOCRINE/METABOLIC Hx Endocrine Disorders: No - HEMATOLOGICAL/ONCOLOGICAL Hx Blood Disorders: No - INTEGUMENTARY Hx Dermatological Problems: No - MUSCULOSKELETAL/RHEUMATOLOGICAL Hx Musculoskeletal Disorders: No Hx Falls: No - GASTROINTESTINAL Hx Gall Bladder Disease: Yes (choleystitis) - GENITOURINARY/GYNECOLOGICAL Hx Genitourinary Disorders: No - PSYCHIATRIC Hx Substance Use: No - SURGICAL HISTORY Hx Surgeries: No - ANESTHESIA Hx Anesthesia: Yes Hx Anesthesia Reactions: No Hx Malignant Hyperthermia: No Has any member of the family had a problem w/ anesthesia?: No Meds Allergies/Adverse Reactions: Allergies Allergy/AdvReac Type Severity Reaction Status Date / Time No Known Allergies Allergy Verified 02/08/18 09:55 - Medications Medications: Current Medications Aspirin (Aspirin Chewable) 81 mg PO DAILY [facility] Last Admin: 08/14/18 09:27 Dose: 81 mg Carvedilol (Coreg) 6.25 mg PO BID [facility] Last Admin: 08/14/18 09:29 Dose: 6.25 mg Docusate Sodium (Colace) 100 mg PO TID [facility] Last Admin: 08/14/18 15:27 Dose: 100 mg Folic Acid (Folic Acid) 1 mg PO DAILY [facility] Last Admin: 08/14/18 09:29 Dose: 1 mg Furosemide (Lasix) 20 mg IVP BID [facility] Heparin Sodium/Sodium Chloride (Heparin 60649 Units/250ml 1/2 Normal Saline) 25,000 units in 250 mls @ 8.91 mls/hr IV .Q24H PRN; Protocol PRN Reason: ADJUST RATE PER PROTOCOL Last Admin: 08/14/18 05:30 Dose: 9 units/kg/hr, 8.91 mls/hr Morphine Sulfate (Morphine) 1 mg IVP Q4 PRN PRN Reason: Pain, moderate (4-7) Last Admin: 08/13/18 14:47 Dose: 1 mg Pantoprazole Sodium (Protonix Ec Tab) 40 mg PO DAILY [facility] Last Admin: 08/14/18 09:29 Dose: 40 mg Rosuvastatin Calcium (Crestor) 5 mg PO QPM [facility] Last Admin: 08/07/18 17:51 Dose: 5 mg Thiamine HCl (Vitamin B1 Tab) 100 mg PO DAILY [facility] Last Admin: 08/14/18 09:29 Dose: 100 mg Physical Exam - Head Exam Head Exam: ATRAUMATIC, NORMOCEPHALIC - Eye Exam Eye Exam: EOMI, PERRL - Respiratory Exam Respiratory Exam: NORMAL BREATHING PATTERN. absent: Rales, Rhonchi, Wheezes - Cardiovascular Exam Cardiovascular Exam: REGULAR RHYTHM, +S1, +S2. absent: Rubs, Systolic Murmur - GI/Abdominal Exam GI & Abdominal Exam: Distended, Normal Bowel Sounds, Soft. absent: Mass, Organomegaly, Tenderness - Rectal Exam Rectal Exam: Deferred - Extremities Exam Extremities exam: Negative for: calf tenderness Results - Vital Signs Recent Vital Signs: Last Vital Signs Temp 97.6 F 08/14/18 12:00 Pulse 80 08/14/18 12:04 Resp 16 08/14/18 12:04 BP 100/69 08/14/18 12:04 Pulse Ox 90 L 08/14/18 12:04 - Labs Result Diagrams: 08/14/18 04:53 08/14/18 04:53 Labs: Laboratory Results - last 24 hr 08/09/18 08/09/18 08/09/18 07:18 07:18 07:18 WBC RBC Hgb Hct MCV MCH MCHC RDW Plt Count MPV Neut % (Auto) Lymph % (Auto) Cameron % (Auto) Eos % (Auto) Baso % (Auto) Neut # (Auto) Lymph # (Auto) Cameron # (Auto) Eos # (Auto) Baso # (Auto) PT INR APTT Protein C Antigen 33 L Protein C Activity 24 L Antithrombin III Activ 43 L Sodium Potassium Chloride Carbon Dioxide Anion Gap BUN Creatinine Est GFR ( Amer) Est GFR (Non-Af Amer) Random Glucose Calcium Phosphorus Magnesium Total Bilirubin Direct Bilirubin AST ALT Alkaline Phosphatase Lactate Dehydrogenase Total Protein Albumin Globulin Albumin/Globulin Ratio Hepatitis A IgM Ab Hep Bs Antigen Hep B Core IgM Ab Hepatitis C Antibody HIV 1&2 Antibody Screen 08/14/18 08/14/18 08/14/18 04:53 04:53 04:53 WBC RBC Hgb Hct MCV MCH MCHC RDW Plt Count MPV Neut % (Auto) Lymph % (Auto) Cameron % (Auto) Eos % (Auto) Baso % (Auto) Neut # (Auto) Lymph # (Auto) Cameron # (Auto) Eos # (Auto) Baso # (Auto) PT INR APTT Protein C Antigen Protein C Activity Antithrombin III Activ Sodium 133 Potassium 3.8 Chloride 95 L Carbon Dioxide 26 Anion Gap 15 BUN 45 H Creatinine 1.4 Est GFR ( Amer) > 60 Est GFR (Non-Af Amer) 57 Random Glucose 91 Calcium 9.4 Phosphorus 3.5 Magnesium 2.3 Total Bilirubin 5.4 H Direct Bilirubin 3.5 H AST 135 H ALT 146 H Alkaline Phosphatase 118 Lactate Dehydrogenase 1124 H Total Protein 6.9 Albumin 3.6 Globulin 3.3 Albumin/Globulin Ratio 1.1 Hepatitis A IgM Ab Negative Hep Bs Antigen Negative Hep B Core IgM Ab Negative Hepatitis C Antibody Negative HIV 1&2 Antibody Screen Negative 08/14/18 08/14/18 04:53 04:53 WBC 8.4 RBC 4.81 Hgb 12.4 Hct 38.5 MCV 80.1 MCH 25.7 L MCHC 32.1 L RDW 19.2 H Plt Count 286 MPV 8.9 Neut % (Auto) 60.9 Lymph % (Auto) 26.6 Cameron % (Auto) 11.0 H Eos % (Auto) 0.6 Baso % (Auto) 0.9 Neut # (Auto) 5.1 Lymph # (Auto) 2.2 Cameron # (Auto) 0.9 H Eos # (Auto) 0.0 Baso # (Auto) 0.1 PT 26.2 H INR 2.4 APTT 74.9 H D Protein C Antigen Protein C Activity Antithrombin III Activ Sodium Potassium Chloride Carbon Dioxide Anion Gap BUN Creatinine Est GFR ( Amer) Est GFR (Non-Af Amer) Random Glucose Calcium Phosphorus Magnesium Total Bilirubin Direct Bilirubin AST ALT Alkaline Phosphatase Lactate Dehydrogenase Total Protein Albumin Globulin Albumin/Globulin Ratio Hepatitis A IgM Ab Hep Bs Antigen Hep B Core IgM Ab Hepatitis C Antibody HIV 1&2 Antibody Screen Assessment & Plan (1) Elevated liver enzymes Assessment and Plan: This is a 38 year old man with severe HFrEF who was admitted with PE. He most likely has chronic passive congestion of the liver as his baseline. On the morning of the day following admission, he sustained a hypotensive episode, and, 26 hours later, the AST and ALT increased to 857 and 336, respectively. This is most likely due to hepatic ischemia. This second insult, ischemic hepatopathy, is quite serious in this setting and may lead to liver failure. Recommend: - Continue to treat the heart failure. - Continue to treat the pulmonary embolus. - Follow LFTs and PT-INR daily. - Ultrasound of hepatic veins and portal vein. Will follow. Status: Acute
--- NOTE | 2018-08-14 23:21 | CP.PCM.PN ---
Subjective - Date & Time of Evaluation Date of Evaluation: 08/14/18 Time of Evaluation: 08:40 - Subjective Subjective: dict Objective - Vital Signs/Intake and Output Vital Signs (last 24 hours): Temp Pulse Resp BP Pulse Ox 97.6 F 83 12 103/72 93 L 08/14/18 20:00 08/14/18 21:04 08/14/18 21:04 08/14/18 22:04 08/14/18 21:00 Intake and Output: 08/14/18 08/15/18 18:59 06:59 Intake Total 381.8 160.6 Output Total 700 425 Balance -318.2 -264.4 - Medications Medications: Current Medications Aspirin (Aspirin Chewable) 81 mg PO DAILY [facility] Last Admin: 08/14/18 09:27 Dose: 81 mg Carvedilol (Coreg) 6.25 mg PO BID [facility] Last Admin: 08/14/18 17:25 Dose: 6.25 mg Docusate Sodium (Colace) 100 mg PO TID [facility] Last Admin: 08/14/18 17:25 Dose: 100 mg Folic Acid (Folic Acid) 1 mg PO DAILY [facility] Last Admin: 08/14/18 09:29 Dose: 1 mg Furosemide (Lasix) 20 mg IVP BID [facility] Last Admin: 08/14/18 17:25 Dose: 20 mg Heparin Sodium/Sodium Chloride (Heparin 15740 Units/250ml 1/2 Normal Saline) 25,000 units in 250 mls @ 8.91 mls/hr IV .Q24H PRN; Protocol PRN Reason: ADJUST RATE PER PROTOCOL Last Admin: 08/14/18 05:30 Dose: 9 units/kg/hr, 8.91 mls/hr Morphine Sulfate (Morphine) 1 mg IVP Q4 PRN PRN Reason: Pain, moderate (4-7) Last Admin: 08/14/18 22:59 Dose: 1 mg Pantoprazole Sodium (Protonix Ec Tab) 40 mg PO DAILY [facility] Last Admin: 08/14/18 09:29 Dose: 40 mg Rosuvastatin Calcium (Crestor) 5 mg PO QPM [facility] Last Admin: 08/07/18 17:51 Dose: 5 mg Thiamine HCl (Vitamin B1 Tab) 100 mg PO DAILY [facility] Last Admin: 08/14/18 09:29 Dose: 100 mg - Labs Labs: 08/14/18 04:53 08/14/18 04:53 PT 26.2 SECONDS (9.7-12.2) H 08/14/18 04:53 INR 2.4 08/14/18 04:53 APTT 74.9 SECONDS (21-34) H D 08/14/18 04:53
--- NOTE | 2018-08-15 04:48 | PN ---
DATE: 08/15/2018 SUBJECTIVE: The patient is less short of breath, more comfortable. No tachycardia. Blood pressure is stable. No nausea or vomiting, status post thrombolytics. PHYSICAL EXAMINATION: VITAL SIGNS: Blood pressure 102/67, pulse 83, respiratory rate 12, and temperature 98. LUNGS: Bilateral clear. CARDIOVASCULAR SYSTEM: S1, S2 regular. ABDOMEN: Soft, nontender. Bowel sounds are positive. ASSESSMENT: 1. Deep venous thrombosis, pulmonary embolism. 2. Dilated cardiomyopathy, nonischemic. 3. Congestive heart failure. PLAN: We will continue current medication. Monitor the patient. Aris Rivas MD
[2018-08-15 06:10] LABS: BASO % 0.5 % (0.0-2.0); EOS % 0.6 % (0.0-4.0); HEMOGLOBIN 11.7 g/dL (12.0-18.0); LYMPH # 2.1 K/uL (1.0-4.3); LYMPH % 25.5 % (20.0-40.0); MEAN CELL VOLUME 79.3 fL (80.0-94.0); MEAN CORPUSCULAR HEMOGLOBIN 25.8 pg (27.0-31.0); MEAN CORPUSCULAR HGB CONC 32.6 g/dL (33.0-37.0); MEAN PLATELET VOLUME 8.8 fL (7.2-11.7); MONO # 0.9 K/uL (0.0-0.8); MONO % 10.3 % (0.0-10.0); NEUT # 5.3 K/uL (1.8-7.0); NEUT % 63.1 % (50.0-75.0); NRBC % 0.3 % (0.0-2.0); RBC 4.52 Mil/uL (4.40-5.90); RED CELL DISTRIBUTION WIDTH 19.4 % (11.5-14.5); WHITE BLOOD COUNT 8.4 K/uL (4.8-10.8)
[2018-08-15 06:20] LABS: INR 2.2; PROTHROMBIN TIME 23.6 SECONDS (9.7-12.2)
[2018-08-15 06:29] LABS: ALB/GLOB RATIO 1.1 (1.0-2.1); ALBUMIN 3.3 g/dL (3.5-5.0); ALT/SGPT 126 U/L (21-72); AST/SGOT 113 U/L (17-59); BLOOD UREA NITROGEN 40 mg/dL (9-20); CALCIUM 9.2 mg/dl (8.6-10.4); GFR NON-AFRICAN AMERICAN > 60
--- NOTE | 2018-08-15 07:15 | CP.PCM.PN ---
<Jeromy Duncan - Last Filed: 08/15/18 18:11> Subjective - Date & Time of Evaluation Date of Evaluation: 08/15/18 Time of Evaluation: 07:14 - Subjective Subjective: PGY2 Cardiology Note for Dr. Mccarty Patient seen and examined this morning at bedside. No acute events overnight. Patient is resting comfortably in bed. He is saturating at 98% on RA, but still reports mild feeling of shortness of breath. Denies any chest pain. Objective - Vital Signs/Intake and Output Vital Signs (last 24 hours): Temp Pulse Resp BP Pulse Ox 97.2 F L 87 20 106/77 98 08/15/18 04:00 08/15/18 06:06 08/15/18 06:06 08/15/18 06:06 08/15/18 06:06 Intake and Output: 08/15/18 08/15/18 06:59 18:59 Intake Total 231.8 8.9 Output Total 975 0 Balance -743.2 8.9 - Medications Medications: Current Medications Aspirin (Aspirin Chewable) 81 mg PO DAILY [facility] Last Admin: 08/14/18 09:27 Dose: 81 mg Carvedilol (Coreg) 6.25 mg PO BID [facility] Last Admin: 08/14/18 17:25 Dose: 6.25 mg Docusate Sodium (Colace) 100 mg PO TID [facility] Last Admin: 08/14/18 17:25 Dose: 100 mg Folic Acid (Folic Acid) 1 mg PO DAILY [facility] Last Admin: 08/14/18 09:29 Dose: 1 mg Furosemide (Lasix) 20 mg IVP BID [facility] Last Admin: 08/14/18 17:25 Dose: 20 mg Heparin Sodium/Sodium Chloride (Heparin 70570 Units/250ml 1/2 Normal Saline) 25,000 units in 250 mls @ 8.91 mls/hr IV .Q24H PRN; Protocol PRN Reason: ADJUST RATE PER PROTOCOL Last Admin: 08/14/18 05:30 Dose: 9 units/kg/hr, 8.91 mls/hr Morphine Sulfate (Morphine) 1 mg IVP Q4 PRN PRN Reason: Pain, moderate (4-7) Last Admin: 08/14/18 22:59 Dose: 1 mg Pantoprazole Sodium (Protonix Ec Tab) 40 mg PO DAILY [facility] Last Admin: 08/14/18 09:29 Dose: 40 mg Rosuvastatin Calcium (Crestor) 5 mg PO QPM [facility] Last Admin: 08/07/18 17:51 Dose: 5 mg Thiamine HCl (Vitamin B1 Tab) 100 mg PO DAILY [facility] Last Admin: 08/14/18 09:29 Dose: 100 mg - Labs Labs: 08/15/18 06:05 08/15/18 06:05 PT 23.6 SECONDS (9.7-12.2) H 08/15/18 06:05 INR 2.2 08/15/18 06:05 APTT 69.0 SECONDS (21-34) H D 08/15/18 06:05 - Additional Findings Additional findings: - Constitutional Appears: Non-toxic, No Acute Distress - Head Exam Head Exam: ATRAUMATIC, NORMAL INSPECTION, NORMOCEPHALIC - Eye Exam Eye Exam: EOMI, Normal appearance - ENT Exam ENT Exam: Mucous Membranes Moist - Respiratory Exam Respiratory Exam: Decreased Breath Sounds, Clear to Ausculation Bilateral. absent: Accessory Muscle Use, Rales, Rhonchi, Wheezes, Respiratory Distress - Cardiovascular Exam Cardiovascular Exam: REGULAR RHYTHM, RRR, +S1, +S2. absent: JVD - GI/Abdominal Exam GI & Abdominal Exam: Soft, Normal Bowel Sounds. absent: Tenderness - Extremities Exam Extremities Exam: Calf Tenderness (left calf ). absent: Pedal Edema - Neurological Exam Neurological Exam: Alert, Awake, Oriented x3 - Psychiatric Exam Psychiatric exam: Flat Affect - Skin Skin Exam: absent: Normal Color (ecchymosis on the right arm) Assessment and Plan - Assessment and Plan (Free Text) Plan: Systolic Heart Failure - bi-ventricular failure Nonischemic Cardiomyopathy Paroxysmal Vtach EP Demurrage Man consulted, Dr. Jones, * Consult for AICD placement evaluation * He has persistently decreased LVEF (first seen on ECHO 08/19/17, EF <15%) * Patient experienced multiple events of non-sustained Vtach throughout the night of 08/08 to morning of 08/09. * Patient has not been a good candidate for heart transplant or life vest due to non compliance in the past. AICD placement cancelled again due to elevated INR * given Vitamin K+ 10mg IV once * transfused 1 unit of FFP * will re-evaluate tomorrow morning * AICD placement will hopefully be rescheduled tomorrow with Dr. Jones, if INR normalizes * patient will be transferred to [facility] [place], then will return to [facility] after completion of procedure. Medications: * Aspirin 81 mg PO daily * Heparin drip * Coreg 6.25 mg BID * Crestor 5 mg PO daily - on hold due to transaminitis * Lasix 20mg IVP BID Pulmonary Embolism Thrombus in Right Atrium (resolved) Thrombus in Left Ventricle DVT - left leg Vascular Surgery consulted, Dr. Alvares * s/p IVC filter placed on 08/08/2018 CTA Chest: Filling defect arising within distal R main pulmonary artery involving distal pulmonary artery branches. No evidence of saddle embolus. ECHO on 08/06 showed thrombus in Right Atrium and LV. Likely two separate processes. * tPa was given on 08/07. Repeat ECHO on 08/08 showed persistent clot attached to LV wall, but resolution of thrombus in right ventricle. * Patient will need bubble study to r/o shunt once clots are resolved and he is more stable. Lower Extremity Doppler * Left: acute DVT of the left distal popliteal, posterior tibial and peroneal veins, with moderate reduction of the venous return. Pulsatile venous flow noted of the left side. * Right: No evidence of deep or superficial vein thrombosis of the right lower extremity. Pulsatile venous flow noted of the right side. Patient will need to be continued on anti-coagulation therapy upon discharge. * Warfarin vs. Xarelto Vs. Eliquis; concern with Hx of noncompliance * Discussed with patient the importance of establishing care with a PMD for continued routine maintenance upon discharge. He reports understanding and agreement. He is to follow up in the [facility] in the basement of [facility] upon discharge. 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 Continue to monitor Hepatic Insufficiency Improving continue to monitor Hold statin until normalization of transaminitis Case discussed with Dr. Lul Duncan PGY2 <Alfie Mccarty - Last Filed: 08/16/18 19:53> Objective - Vital Signs/Intake and Output Vital Signs (last 24 hours): Temp Pulse Resp BP Pulse Ox 98 F 83 21 140/70 97 08/16/18 18:16 08/16/18 18:16 08/16/18 18:16 08/16/18 18:16 08/16/18 18:16 Intake and Output: 08/16/18 08/17/18 18:59 06:59 Intake Total 1253.4 Balance 1253.4 - Medications Medications: Current Medications Aspirin (Aspirin Chewable) 81 mg PO DAILY [facility] Last Admin: 08/16/18 09:54 Dose: 81 mg Carvedilol (Coreg) 6.25 mg PO BID [facility] Last Admin: 08/16/18 18:15 Dose: 6.25 mg Docusate Sodium (Colace) 100 mg PO TID [facility] Last Admin: 08/16/18 18:16 Dose: 100 mg Folic Acid (Folic Acid) 1 mg PO DAILY [facility] Last Admin: 08/16/18 12:00 Dose: 1 mg Furosemide (Lasix) 20 mg PO BID [facility] Last Admin: 08/16/18 18:15 Dose: 20 mg Heparin Sodium/Sodium Chloride (Heparin 24380 Units/250ml 1/2 Normal Saline) 25,000 units in 250 mls @ 9.043 mls/hr IV .Q24H PRN; Protocol PRN Reason: PROTOCOL Last Admin: 08/16/18 18:12 Dose: 8.9 units/kg/hr, 9.043 mls/hr Lisinopril (Zestril) 5 mg PO DAILY [facility] Last Admin: 08/16/18 09:55 Dose: 5 mg Morphine Sulfate (Morphine) 1 mg IVP Q4 PRN PRN Reason: Pain, moderate (4-7) Last Admin: 08/16/18 09:56 Dose: 1 mg Pantoprazole Sodium (Protonix Ec Tab) 40 mg PO DAILY [facility] Last Admin: 08/16/18 09:56 Dose: 40 mg Rosuvastatin Calcium (Crestor) 5 mg PO QPM [facility] Last Admin: 08/07/18 17:51 Dose: 5 mg Spironolactone (Aldactone) 25 mg PO DAILY [facility] Last Admin: 08/16/18 09:54 Dose: 25 mg Thiamine HCl (Vitamin B1 Tab) 100 mg PO DAILY [facility] Last Admin: 08/16/18 09:56 Dose: 100 mg - Labs Labs: 08/16/18 06:03 08/16/18 06:03 PT 22.2 SECONDS (9.7-12.2) H 08/16/18 06:03 INR 2.0 08/16/18 06:03 APTT 64.3 SECONDS (21-34) H 08/16/18 06:03 Assessment and Plan - Assessment and Plan (Free Text) Plan: Patient seen, examined and evaluated personally by me. Plan of care d/w the medical data analyst and as documented
[2018-08-15] MEDS ORDERED: Phytonadione 10 mg/ml Inj (Adult) SC ONE (07:59)
[2018-08-15] MEDS: Pantoprazole 40 mg EC Tab PO SCH (10:14)
[2018-08-15] MEDS ORDERED: Phytonadione 10 mg/ml Inj (Adult) SC STA (10:25)
--- NOTE | 2018-08-15 11:10 | CP.PCM.PN ---
Subjective - Date & Time of Evaluation Date of Evaluation: 08/15/18 Time of Evaluation: 11:08 - Subjective Subjective: PGY-[address] Purcell (+) BM yesterday. Breathing improves. No acute complaints. Objective - Vital Signs/Intake and Output Vital Signs (last 24 hours): Temp Pulse Resp BP Pulse Ox 97.2 F L 80 10 L 109/79 100 08/15/18 04:00 08/15/18 10:13 08/15/18 10:13 08/15/18 10:41 08/15/18 10:13 Intake and Output: 08/15/18 08/15/18 06:59 18:59 Intake Total 231.8 155.6 Output Total 975 95 Balance -743.2 60.6 - Medications Medications: Current Medications Aspirin (Aspirin Chewable) 81 mg PO DAILY [facility] Last Admin: 08/15/18 10:14 Dose: 81 mg Carvedilol (Coreg) 6.25 mg PO BID [facility] Last Admin: 08/15/18 10:14 Dose: 6.25 mg Docusate Sodium (Colace) 100 mg PO TID [facility] Last Admin: 08/15/18 10:15 Dose: 100 mg Folic Acid (Folic Acid) 1 mg PO DAILY [facility] Last Admin: 08/15/18 10:24 Dose: 1 mg Furosemide (Lasix) 20 mg PO BID [facility] Heparin Sodium/Sodium Chloride (Heparin 05252 Units/250ml 1/2 Normal Saline) 25,000 units in 250 mls @ 8.91 mls/hr IV .Q24H PRN; Protocol PRN Reason: ADJUST RATE PER PROTOCOL Last Admin: 08/14/18 05:30 Dose: 9 units/kg/hr, 8.91 mls/hr Lisinopril (Zestril) 5 mg PO DAILY [facility] Morphine Sulfate (Morphine) 1 mg IVP Q4 PRN PRN Reason: Pain, moderate (4-7) Last Admin: 08/14/18 22:59 Dose: 1 mg Pantoprazole Sodium (Protonix Ec Tab) 40 mg PO DAILY [facility] Last Admin: 08/15/18 10:14 Dose: 40 mg Rosuvastatin Calcium (Crestor) 5 mg PO QPM [facility] Last Admin: 08/07/18 17:51 Dose: 5 mg Spironolactone (Aldactone) 25 mg PO DAILY [facility] Thiamine HCl (Vitamin B1 Tab) 100 mg PO DAILY [facility] Last Admin: 08/15/18 10:14 Dose: 100 mg - Labs Labs: 08/15/18 06:05 08/15/18 06:05 PT 23.6 SECONDS (9.7-12.2) H 08/15/18 06:05 INR 2.2 08/15/18 06:05 APTT 69.0 SECONDS (21-34) H D 08/15/18 06:05 - Constitutional Appears: No Acute Distress - Head Exam Head Exam: ATRAUMATIC, NORMAL INSPECTION, NORMOCEPHALIC - Eye Exam Eye Exam: EOMI, Normal appearance, PERRL, Scleral icterus Pupil Exam: NORMAL ACCOMODATION - ENT Exam ENT Exam: Mucous Membranes Moist - Respiratory Exam Respiratory Exam: Decreased Breath Sounds (b/l lung bases), Clear to Ausculation Bilateral, NORMAL BREATHING PATTERN. absent: Rales, Rhonchi, Wheezes - Cardiovascular Exam Cardiovascular Exam: REGULAR RHYTHM, +S1, +S2 - GI/Abdominal Exam GI & Abdominal Exam: Soft, Tenderness (mild on palpation), Normal Bowel Sounds - Back Exam Back Exam: absent: CVA tenderness (L), CVA tenderness (R) - Neurological Exam Neurological Exam: Alert, Awake, Oriented x3 - Psychiatric Exam Psychiatric exam: Normal Affect, Normal Mood - Skin Skin Exam: Dry, Warm Assessment and Plan - Assessment and Plan (Free Text) Plan: Mr Love, 38 AAM, former smoker with PMHx non-ischemic cardiomyopathy (EF 13) non-compliant with life-vest, not-ambulating for a month, came in for dyspnea and dyspnic chest pain and was found to have LLE DVT, R main PE, and b-vent cardiac thrombi. He is s/p TPA and IVC (08/08), pending decision on AICD. MELD-Na in high 20s (20% 3 month mortality) class C (periop abd surgery is 80s%). (1) Acute renal failure ATN @ Cre 2.8 [worst] - resolving, stablizing at 1.3 secondary to contrast nephropathy Oliguria/polyuriga resolved. stable lytes and volume status. Continue strict i/o Did not have emergent dialysis due to TPA Salt loading to prevent contrast nephropathy as tolerated by cardiac status (2) b-vent cardiac thrombi s/p TPA Pulmonary embolism with DVT on heparin gtt. Not bridging yet due to AICD planning Repeat ECHO (08/10) official report still demonstrates moderate to large thrombi involving apex and postero-lateral wall, latter being mobile with possible detached thrombus in aortic outflow tract; Less thrombus burden in LV compared to prior study, no thrombi in RA or upper IVC (3) Severe non-ischemic cardiomyopathy, systolic CHF, acute on chronic - improving AICD at [facility] delayed till Sunday due to INR Continue to monitor for volume overloaded leg edema resolved, no JVD, lungs no crackes recommend to Decresae lasix to 20 IV bid Not a candidate for surgical thrombectomy resume lisinopril 5, aldactone 25 bid, decrease lasix to 20 bid PO. On ASA, coreg (4) Acute liver injury with coagulopathy Chronic passive congestion Elevated INR 2 with transaminitis with mild abdominal pain MELD-Na 27 (20% 3 month mortality) Child-[place] class C (periop abd surgery is 82%). H/H stable, CBD 3mm, Hep panel, HIV neg s/p vit K and will get FFP today. Lasix 20 IV x 1 immediately after FFP. Communicated with ICU team to continue to monitor breathing status Pending read for u/s hepatic veins and portal veins Goal INR 1.5 for AICD s/r/d/w Dr Purcell
[2018-08-15] MEDS: Heparin25000 units/250ml 1/2NS 25,000 UNITS/250 ML BAG IV PRN (12:55)
--- NOTE | 2018-08-15 14:14 | CP.CCUPN ---
<Bruno Cespedes - Last Filed: 08/15/18 14:31> CCU Objective - Vital Signs / Intake & Output Vital Signs (Last 4 hours): Vital Signs Pulse Resp BP Pulse Ox 08/15/18 13:00 85 17 81 L 08/15/18 12:06 79 11 L 91/36 L 96 08/15/18 12:00 81 15 99 08/15/18 11:04 88 16 115/84 96 08/15/18 11:00 85 19 100 08/15/18 10:41 109/79 08/15/18 10:39 82 13 109/79 100 Intake and Output (Last 8hrs): Intake & Output 08/14/18 08/15/18 08/15/18 22:59 06:59 14:59 Intake Total 271.2 71.2 672.3 Output Total 575 550 220 Balance -303.8 -478.8 452.3 Intake: IV 250 Intake, IV Amount 71.2 71.2 62.3 lefy wrist 71.2 71.2 62.3 Oral 200 0 360 Output: Urine 575 550 220 Urine, Voided 575 550 220 Other: # Voids Urine, Voided 1 - Medications Active Medications: Active Medications Generic Name Dose Route Start Last Admin Trade Name Freq PRN Reason Stop Dose Admin Aspirin 81 mg 08/07/18 10:00 08/15/18 10:14 Aspirin Chewable PO 81 mg DAILY JACKELIN Administration Carvedilol 6.25 mg 08/11/18 08:40 08/15/18 10:14 Coreg PO 6.25 mg BID AJCKELIN Administration Docusate Sodium 100 mg 08/13/18 10:00 08/15/18 10:15 Colace PO 100 mg TID JACKELIN Administration Folic Acid 1 mg 08/09/18 10:00 08/15/18 10:24 Folic Acid PO 1 mg DAILY JACKELIN Administration Furosemide 20 mg 08/15/18 18:00 Lasix PO BID JACKEILN Furosemide 20 mg 08/16/18 15:00 Lasix IVP 08/16/18 15:01 ONCE ONE Heparin Sodium/Sodium Chloride 25,000 units in 250 mls @ 8.91 mls/hr 08/08/18 15:59 08/15/18 12:55 Heparin 81416 Units/250ml 1/2 Normal Saline IV 9 units/kg/hr .Q24H PRN 8.91 mls/hr ADJUST RATE PER PROTOCOL Administration Protocol 9 UNITS/KG/HR Lisinopril 5 mg 08/15/18 11:00 08/15/18 11:53 Zestril PO 5 mg DAILY JACKELIN Administration Morphine Sulfate 1 mg 08/13/18 14:03 08/14/18 22:59 Morphine IVP 1 mg Q4 PRN Administration Pain, moderate (4-7) Pantoprazole Sodium 40 mg 08/07/18 10:00 08/15/18 10:14 Protonix Ec Tab PO 40 mg DAILY JACKELIN Administration Rosuvastatin Calcium 5 mg 08/06/18 18:00 08/07/18 17:51 Crestor PO 5 mg QPM JACKELIN Administration Spironolactone 25 mg 08/15/18 11:00 08/15/18 11:52 Aldactone PO 25 mg DAILY JACKELIN Administration Thiamine HCl 100 mg 08/09/18 10:00 08/15/18 10:14 Vitamin B1 Tab PO 100 mg DAILY JACKELIN Administration - Patient Studies Lab Studies: Lab Studies 08/15/18 08/15/18 08/15/18 Range/Units 12:52 12:52 06:05 WBC (4.8-10.8) K/uL RBC (4.40-5.90) Mil/uL Hgb (12.0-18.0) g/dL Hct (35.0-51.0) % MCV (80.0-94.0) fL MCH (27.0-31.0) pg MCHC (33.0-37.0) g/dL RDW (11.5-14.5) % Plt Count (130-400) K/uL MPV (7.2-11.7) fL Neut % (Auto) (50.0-75.0) % Lymph % (Auto) (20.0-40.0) % Braxton % (Auto) (0.0-10.0) % Eos % (Auto) (0.0-4.0) % Baso % (Auto) (0.0-2.0) % Neut # (Auto) (1.8-7.0) K/uL Lymph # (Auto) (1.0-4.3) K/uL Braxton # (Auto) (0.0-0.8) K/uL Eos # (Auto) (0.0-0.7) K/uL Baso # (Auto) (0.0-0.2) K/uL Haptoglobin < 20.0 L (30.0-200.0) mg/dL PT (9.7-12.2) SECONDS INR APTT (21-34) SECONDS Protein C Antigen (70-140) % Sodium 132 (132-148) mmol/L Potassium 3.7 (3.6-5.2) mmol/L Chloride 96 L (98-107) mmol/L Carbon Dioxide 27 (22-30) mmol/L Anion Gap 13 (10-20) BUN 40 H (9-20) mg/dL Creatinine 1.3 (0.8-1.5) mg/dL Est GFR ( Amer) > 60 Est GFR (Non-Af Amer) > 60 Random Glucose 95 (75-110) mg/dL Calcium 9.2 (8.6-10.4) mg/dl Phosphorus 3.3 (2.5-4.5) mg/dL Magnesium 2.2 (1.6-2.3) mg/dL Total Bilirubin 5.6 H (0.2-1.3) mg/dL AST 113 H (17-59) U/L ALT 126 H (21-72) U/L Alkaline Phosphatase 119 (38-126) U/L Total Protein 6.4 (6.3-8.3) g/dL Albumin 3.3 L (3.5-5.0) g/dL Globulin 3.1 (2.2-3.9) gm/dL Albumin/Globulin Ratio 1.1 (1.0-2.1) Blood Type A POSITIVE Blood Type Confirm A POSITIVE Antibody Screen Negative 08/15/18 08/15/18 08/09/18 Range/Units 06:05 06:05 07:18 WBC 8.4 (4.8-10.8) K/uL RBC 4.52 (4.40-5.90) Mil/uL Hgb 11.7 L (12.0-18.0) g/dL Hct 35.9 (35.0-51.0) % MCV 79.3 L (80.0-94.0) fL MCH 25.8 L (27.0-31.0) pg MCHC 32.6 L (33.0-37.0) g/dL RDW 19.4 H (11.5-14.5) % Plt Count 278 (130-400) K/uL MPV 8.8 (7.2-11.7) fL Neut % (Auto) 63.1 (50.0-75.0) % Lymph % (Auto) 25.5 (20.0-40.0) % Braxton % (Auto) 10.3 H (0.0-10.0) % Eos % (Auto) 0.6 (0.0-4.0) % Baso % (Auto) 0.5 (0.0-2.0) % Neut # (Auto) 5.3 (1.8-7.0) K/uL Lymph # (Auto) 2.1 (1.0-4.3) K/uL Braxton # (Auto) 0.9 H (0.0-0.8) K/uL Eos # (Auto) 0.0 (0.0-0.7) K/uL Baso # (Auto) 0.0 (0.0-0.2) K/uL Haptoglobin (30.0-200.0) mg/dL PT 23.6 H (9.7-12.2) SECONDS INR 2.2 APTT 69.0 H D (21-34) SECONDS Protein C Antigen 33 L (70-140) % Sodium (132-148) mmol/L Potassium (3.6-5.2) mmol/L Chloride (98-107) mmol/L Carbon Dioxide (22-30) mmol/L Anion Gap (10-20) BUN (9-20) mg/dL Creatinine (0.8-1.5) mg/dL Est GFR ( Amer) Est GFR (Non-Af Amer) Random Glucose (75-110) mg/dL Calcium (8.6-10.4) mg/dl Phosphorus (2.5-4.5) mg/dL Magnesium (1.6-2.3) mg/dL Total Bilirubin (0.2-1.3) mg/dL AST (17-59) U/L ALT (21-72) U/L Alkaline Phosphatase (38-126) U/L Total Protein (6.3-8.3) g/dL Albumin (3.5-5.0) g/dL Globulin (2.2-3.9) gm/dL Albumin/Globulin Ratio (1.0-2.1) Blood Type Blood Type Confirm Antibody Screen Laboratory Results - last 24 hr 08/09/18 08/15/18 08/15/18 07:18 06:05 06:05 WBC 8.4 RBC 4.52 Hgb 11.7 L Hct 35.9 MCV 79.3 L MCH 25.8 L MCHC 32.6 L RDW 19.4 H Plt Count 278 MPV 8.8 Neut % (Auto) 63.1 Lymph % (Auto) 25.5 Braxton % (Auto) 10.3 H Eos % (Auto) 0.6 Baso % (Auto) 0.5 Neut # (Auto) 5.3 Lymph # (Auto) 2.1 Braxton # (Auto) 0.9 H Eos # (Auto) 0.0 Baso # (Auto) 0.0 Haptoglobin PT 23.6 H INR 2.2 APTT 69.0 H D Protein C Antigen 33 L Sodium Potassium Chloride Carbon Dioxide Anion Gap BUN Creatinine Est GFR ( Amer) Est GFR (Non-Af Amer) Random Glucose Calcium Phosphorus Magnesium Total Bilirubin AST ALT Alkaline Phosphatase Total Protein Albumin Globulin Albumin/Globulin Ratio Blood Type Blood Type Confirm Antibody Screen 08/15/18 08/15/18 08/15/18 06:05 12:52 12:52 WBC RBC Hgb Hct MCV MCH MCHC RDW Plt Count MPV Neut % (Auto) Lymph % (Auto) Braxton % (Auto) Eos % (Auto) Baso % (Auto) Neut # (Auto) Lymph # (Auto) Braxton # (Auto) Eos # (Auto) Baso # (Auto) Haptoglobin < 20.0 L PT INR APTT Protein C Antigen Sodium 132 Potassium 3.7 Chloride 96 L Carbon Dioxide 27 Anion Gap 13 BUN 40 H Creatinine 1.3 Est GFR ( Amer) > 60 Est GFR (Non-Af Amer) > 60 Random Glucose 95 Calcium 9.2 Phosphorus 3.3 Magnesium 2.2 Total Bilirubin 5.6 H AST 113 H ALT 126 H Alkaline Phosphatase 119 Total Protein 6.4 Albumin 3.3 L Globulin 3.1 Albumin/Globulin Ratio 1.1 Blood Type A POSITIVE Blood Type Confirm A POSITIVE Antibody Screen Negative Radiology Impressions: Radiology Impressions Abdomen Ultrasound 08/14/18 17:56 Impression: Pulsatile portal venous flow. Potential etiologies include cirrhosis, right heart failure, tricuspid regurgitation. Correlate clinically. Patent hepatic vasculature with appropriate directional flow. Preliminary impression was provided by NAA Black. Please note additional images were obtained since preliminary interpretation and added to this study folder. Critical Care Progress Note - Nutrition Nutrition: Nutrition Category Date Time Status Heart Healthy Diet [DIET] Diets 08/14/18 Lunch Active Attending/Attestation - Attestation I have personally seen and examined this patient.: Yes I have fully participated in the care of the patient.: Yes I have reviewed all pertinent clinical information: Yes Notes (Text): 08/15/18 14:31 I have seen and examined the patient. Medical records, lab studies, and imaging were reviewed by me and a management plan was formulated on multidisciplinary rounds with resident Dr. Causey. I agree with their documented assessment and plan. Patient's renal function improving. Discussed with renal, to restart DONNA-I and spironolactone. Trying to lower INR to prepare for AICD placement; if not possible patient will have another Life Vest for his severe cardiomyopathy. Critical Care Time 35 minutes. Multi-disciplinary rounds were performed with house staff, nursing, speech therapy, respiratory therapy, pharmacy and nutrition with integrated input from the primary team/attending and other consulting services. The documented time is cumulative and includes review of patient data/exams/labs/chart review and examination of the patient on rounds and throughout the day; time is exclusive of any procedures or teaching time. <Ervin Causey - Last Filed: 08/15/18 16:16> CCU Subjective - Physician Review Subjective (Free Text): 08/15/18 14:13 PGY-1 Critical Care Progress Note for Dr. Cespedes Seen and examined at bedside this AM 38 yo male with pmhx of severe systolic HF, EF 13%, nonischemic cardiomyopathy, HTN, HLD, noncompliance Admitted to ICU with acute LLE DVT, PE Biventricular thrombus noted on ECHO, received tPA s/p IVC filter (08/08/18) Remains on heparin gtt Repeat ECHO (08/10) still demonstrates moderate to large thrombi involving apex and postero-lateral wall, latter being mobile with possible detached thrombus in aortic outflow tract. Less thrombus burden in LV compared to prior study, no thrombi in RA or upper IVC AICD procedure on hold d/t INR 2.2, goal INR 1.5 or less To administer FFP today, continue to monitor Follow up further Cardiac recs Discussed with stephani Lucero to resume lisinopril and aldactone Continue to monitor renal function CCU Objective - Vital Signs / Intake & Output Vital Signs (Last 4 hours): Vital Signs Pulse Resp BP Pulse Ox 08/15/18 13:00 85 17 81 L 08/15/18 12:06 79 11 L 91/36 L 96 08/15/18 12:00 81 15 99 08/15/18 11:04 88 16 115/84 96 08/15/18 11:00 85 19 100 08/15/18 10:41 109/79 08/15/18 10:39 82 13 109/79 100 Intake and Output (Last 8hrs): Intake & Output 08/14/18 08/15/18 08/15/18 22:59 06:59 14:59 Intake Total 271.2 71.2 672.3 Output Total 575 550 220 Balance -303.8 -478.8 452.3 Intake: IV 250 Intake, IV Amount 71.2 71.2 62.3 lefy wrist 71.2 71.2 62.3 Oral 200 0 360 Output: Urine 575 550 220 Urine, Voided 575 550 220 Other: # Voids Urine, Voided 1 - Physical Exam Head: Positive for: Atraumatic, Normocephalic Pupils: Positive for: PERRL Extroacular Muscles: Positive for: EOMI Conjunctiva: Positive for: Normal Mouth: Positive for: Moist Mucous Membranes Respiratory/Chest: Positive for: Decreased Breath Sounds, Rales Cardiovascular: Positive for: Regular Rate and Rhythm, Normal S1, S2 Abdomen: Positive for: Normal Bowel Sounds. Negative for: Tenderness, Distention, Rebound, Guarding Back: Positive for: Normal Inspection Upper Extremity: Positive for: Normal Inspection. Negative for: Cyanosis, Edema Lower Extremity: Positive for: Normal Inspection, NORMAL PULSES. Negative for: Edema, CALF TENDERNESS Neurological: Positive for: CN II-XII Intact, Speech Normal Skin: Positive for: Dry, Normal Color, Cold (cool distal extremities b/l ) Psychiatric: Positive for: Alert, Oriented x 3 - Medications Active Medications: Active Medications Generic Name Dose Route Start Last Admin Trade Name Freq PRN Reason Stop Dose Admin Aspirin 81 mg 08/07/18 10:00 08/15/18 10:14 Aspirin Chewable PO 81 mg DAILY JACKELIN Administration Carvedilol 6.25 mg 08/11/18 08:40 08/15/18 10:14 Coreg PO 6.25 mg BID JACKELIN Administration Docusate Sodium 100 mg 08/13/18 10:00 08/15/18 10:15 Colace PO 100 mg TID JACKELIN Administration Folic Acid 1 mg 08/09/18 10:00 08/15/18 10:24 Folic Acid PO 1 mg DAILY JACKELIN Administration Furosemide 20 mg 08/15/18 18:00 Lasix PO BID JACKELIN Furosemide 20 mg 08/16/18 15:00 Lasix IVP 08/16/18 15:01 ONCE ONE Heparin Sodium/Sodium Chloride 25,000 units in 250 mls @ 8.91 mls/hr 08/08/18 15:59 08/15/18 12:55 Heparin 86027 Units/250ml 1/2 Normal Saline IV 9 units/kg/hr .Q24H PRN 8.91 mls/hr ADJUST RATE PER PROTOCOL Administration Protocol 9 UNITS/KG/HR Lisinopril 5 mg 08/15/18 11:00 08/15/18 11:53 Zestril PO 5 mg DAILY JACKELIN Administration Morphine Sulfate 1 mg 08/13/18 14:03 08/14/18 22:59 Morphine IVP 1 mg Q4 PRN Administration Pain, moderate (4-7) Pantoprazole Sodium 40 mg 08/07/18 10:00 08/15/18 10:14 Protonix Ec Tab PO 40 mg DAILY JACKELIN Administration Rosuvastatin Calcium 5 mg 08/06/18 18:00 08/07/18 17:51 Crestor PO 5 mg QPM JACKELIN Administration Spironolactone 25 mg 08/15/18 11:00 08/15/18 11:52 Aldactone PO 25 mg DAILY JACKELIN Administration Thiamine HCl 100 mg 08/09/18 10:00 08/15/18 10:14 Vitamin B1 Tab PO 100 mg DAILY JACKELIN Administration - Patient Studies Lab Studies: Lab Studies 08/15/18 08/15/18 08/15/18 Range/Units 12:52 12:52 06:05 WBC (4.8-10.8) K/uL RBC (4.40-5.90) Mil/uL Hgb (12.0-18.0) g/dL Hct (35.0-51.0) % MCV (80.0-94.0) fL MCH (27.0-31.0) pg MCHC (33.0-37.0) g/dL RDW (11.5-14.5) % Plt Count (130-400) K/uL MPV (7.2-11.7) fL Neut % (Auto) (50.0-75.0) % Lymph % (Auto) (20.0-40.0) % Braxton % (Auto) (0.0-10.0) % Eos % (Auto) (0.0-4.0) % Baso % (Auto) (0.0-2.0) % Neut # (Auto) (1.8-7.0) K/uL Lymph # (Auto) (1.0-4.3) K/uL Braxton # (Auto) (0.0-0.8) K/uL Eos # (Auto) (0.0-0.7) K/uL Baso # (Auto) (0.0-0.2) K/uL Haptoglobin < 20.0 L (30.0-200.0) mg/dL PT (9.7-12.2) SECONDS INR APTT (21-34) SECONDS Protein C Antigen (70-140) % Sodium 132 (132-148) mmol/L Potassium 3.7 (3.6-5.2) mmol/L Chloride 96 L (98-107) mmol/L Carbon Dioxide 27 (22-30) mmol/L Anion Gap 13 (10-20) BUN 40 H (9-20) mg/dL Creatinine 1.3 (0.8-1.5) mg/dL Est GFR ( Amer) > 60 Est GFR (Non-Af Amer) > 60 Random Glucose 95 (75-110) mg/dL Calcium 9.2 (8.6-10.4) mg/dl Phosphorus 3.3 (2.5-4.5) mg/dL Magnesium 2.2 (1.6-2.3) mg/dL Total Bilirubin 5.6 H (0.2-1.3) mg/dL AST 113 H (17-59) U/L ALT 126 H (21-72) U/L Alkaline Phosphatase 119 (38-126) U/L Total Protein 6.4 (6.3-8.3) g/dL Albumin 3.3 L (3.5-5.0) g/dL Globulin 3.1 (2.2-3.9) gm/dL Albumin/Globulin Ratio 1.1 (1.0-2.1) Blood Type A POSITIVE Blood Type Confirm A POSITIVE Antibody Screen Negative 08/15/18 08/15/18 08/09/18 Range/Units 06:05 06:05 07:18 WBC 8.4 (4.8-10.8) K/uL RBC 4.52 (4.40-5.90) Mil/uL Hgb 11.7 L (12.0-18.0) g/dL Hct 35.9 (35.0-51.0) % MCV 79.3 L (80.0-94.0) fL MCH 25.8 L (27.0-31.0) pg MCHC 32.6 L (33.0-37.0) g/dL RDW 19.4 H (11.5-14.5) % Plt Count 278 (130-400) K/uL MPV 8.8 (7.2-11.7) fL Neut % (Auto) 63.1 (50.0-75.0) % Lymph % (Auto) 25.5 (20.0-40.0) % Braxton % (Auto) 10.3 H (0.0-10.0) % Eos % (Auto) 0.6 (0.0-4.0) % Baso % (Auto) 0.5 (0.0-2.0) % Neut # (Auto) 5.3 (1.8-7.0) K/uL Lymph # (Auto) 2.1 (1.0-4.3) K/uL Braxton # (Auto) 0.9 H (0.0-0.8) K/uL Eos # (Auto) 0.0 (0.0-0.7) K/uL Baso # (Auto) 0.0 (0.0-0.2) K/uL Haptoglobin (30.0-200.0) mg/dL PT 23.6 H (9.7-12.2) SECONDS INR 2.2 APTT 69.0 H D (21-34) SECONDS Protein C Antigen 33 L (70-140) % Sodium (132-148) mmol/L Potassium (3.6-5.2) mmol/L Chloride (98-107) mmol/L Carbon Dioxide (22-30) mmol/L Anion Gap (10-20) BUN (9-20) mg/dL Creatinine (0.8-1.5) mg/dL Est GFR ( Amer) Est GFR (Non-Af Amer) Random Glucose (75-110) mg/dL Calcium (8.6-10.4) mg/dl Phosphorus (2.5-4.5) mg/dL Magnesium (1.6-2.3) mg/dL Total Bilirubin (0.2-1.3) mg/dL AST (17-59) U/L ALT (21-72) U/L Alkaline Phosphatase (38-126) U/L Total Protein (6.3-8.3) g/dL Albumin (3.5-5.0) g/dL Globulin (2.2-3.9) gm/dL Albumin/Globulin Ratio (1.0-2.1) Blood Type Blood Type Confirm Antibody Screen Laboratory Results - last 24 hr 08/09/18 08/15/18 08/15/18 07:18 06:05 06:05 WBC 8.4 RBC 4.52 Hgb 11.7 L Hct 35.9 MCV 79.3 L MCH 25.8 L MCHC 32.6 L RDW 19.4 H Plt Count 278 MPV 8.8 Neut % (Auto) 63.1 Lymph % (Auto) 25.5 Braxton % (Auto) 10.3 H Eos % (Auto) 0.6 Baso % (Auto) 0.5 Neut # (Auto) 5.3 Lymph # (Auto) 2.1 Braxton # (Auto) 0.9 H Eos # (Auto) 0.0 Baso # (Auto) 0.0 Haptoglobin PT 23.6 H INR 2.2 APTT 69.0 H D Protein C Antigen 33 L Sodium Potassium Chloride Carbon Dioxide Anion Gap BUN Creatinine Est GFR ( Amer) Est GFR (Non-Af Amer) Random Glucose Calcium Phosphorus Magnesium Total Bilirubin AST ALT Alkaline Phosphatase Total Protein Albumin Globulin Albumin/Globulin Ratio Blood Type Blood Type Confirm Antibody Screen 08/15/18 08/15/18 08/15/18 06:05 12:52 12:52 WBC RBC Hgb Hct MCV MCH MCHC RDW Plt Count MPV Neut % (Auto) Lymph % (Auto) Braxton % (Auto) Eos % (Auto) Baso % (Auto) Neut # (Auto) Lymph # (Auto) Braxton # (Auto) Eos # (Auto) Baso # (Auto) Haptoglobin < 20.0 L PT INR APTT Protein C Antigen Sodium 132 Potassium 3.7 Chloride 96 L Carbon Dioxide 27 Anion Gap 13 BUN 40 H Creatinine 1.3 Est GFR ( Amer) > 60 Est GFR (Non-Af Amer) > 60 Random Glucose 95 Calcium 9.2 Phosphorus 3.3 Magnesium 2.2 Total Bilirubin 5.6 H AST 113 H ALT 126 H Alkaline Phosphatase 119 Total Protein 6.4 Albumin 3.3 L Globulin 3.1 Albumin/Globulin Ratio 1.1 Blood Type A POSITIVE Blood Type Confirm A POSITIVE Antibody Screen Negative Review of Systems - Review of Systems All systems: reviewed and no additional remarkable complaints except Review of Systems: as per HPI Critical Care Progress Note - Nutrition Nutrition: Nutrition Category Date Time Status Heart Healthy Diet [DIET] Diets 08/14/18 Lunch Active
--- NOTE | 2018-08-15 14:26 | US ---
Date of service: 08/14/2018 Indication: Elevated liver enzymes Comparison: Abdominal ultrasound performed 08/13/18 Findings: Intrahepatic inferior vena cava and left, middle, and right hepatic veins appear patent with normal hepatic venous waveforms. Pulsatile portal venous flow. Main portal vein appears patent. Impression: Pulsatile portal venous flow. Potential etiologies include cirrhosis, right heart failure, tricuspid regurgitation. Correlate clinically. Patent hepatic vasculature with appropriate directional flow. Preliminary impression was provided by Peela. Please note additional images were obtained since preliminary interpretation and added to this study folder.
--- NOTE | 2018-08-15 23:08 | CP.PCM.PN ---
Subjective - Date & Time of Evaluation Date of Evaluation: 08/15/18 Time of Evaluation: 09:00 - Subjective Subjective: dict Objective - Vital Signs/Intake and Output Vital Signs (last 24 hours): Temp Pulse Resp BP Pulse Ox 97.9 F 78 11 L 91/50 L 100 08/15/18 20:00 08/15/18 21:03 08/15/18 21:03 08/15/18 21:03 08/15/18 21:03 Intake and Output: 08/15/18 08/16/18 18:59 06:59 Intake Total 1504.8 26.7 Output Total 220 Balance 1284.8 26.7 - Medications Medications: Current Medications Aspirin (Aspirin Chewable) 81 mg PO DAILY [facility] Last Admin: 08/15/18 10:14 Dose: 81 mg Carvedilol (Coreg) 6.25 mg PO BID [facility] Last Admin: 08/15/18 18:39 Dose: 6.25 mg Docusate Sodium (Colace) 100 mg PO TID [facility] Last Admin: 08/15/18 18:39 Dose: 100 mg Folic Acid (Folic Acid) 1 mg PO DAILY [facility] Last Admin: 08/15/18 10:24 Dose: 1 mg Furosemide (Lasix) 20 mg PO BID [facility] Last Admin: 08/15/18 18:39 Dose: 20 mg Furosemide (Lasix) 20 mg IVP ONCE ONE Stop: 08/16/18 15:01 Heparin Sodium/Sodium Chloride (Heparin 25396 Units/250ml 1/2 Normal Saline) 25,000 units in 250 mls @ 8.91 mls/hr IV .Q24H PRN; Protocol PRN Reason: ADJUST RATE PER PROTOCOL Last Admin: 08/15/18 12:55 Dose: 9 units/kg/hr, 8.91 mls/hr Lisinopril (Zestril) 5 mg PO DAILY [facility] Last Admin: 08/15/18 11:53 Dose: 5 mg Morphine Sulfate (Morphine) 1 mg IVP Q4 PRN PRN Reason: Pain, moderate (4-7) Last Admin: 08/14/18 22:59 Dose: 1 mg Pantoprazole Sodium (Protonix Ec Tab) 40 mg PO DAILY [facility] Last Admin: 08/15/18 10:14 Dose: 40 mg Rosuvastatin Calcium (Crestor) 5 mg PO QPM [facility] Last Admin: 08/07/18 17:51 Dose: 5 mg Spironolactone (Aldactone) 25 mg PO DAILY [facility] Last Admin: 08/15/18 11:52 Dose: 25 mg Thiamine HCl (Vitamin B1 Tab) 100 mg PO DAILY [facility] Last Admin: 08/15/18 10:14 Dose: 100 mg - Labs Labs: 08/15/18 06:05 08/15/18 06:05 PT 23.6 SECONDS (9.7-12.2) H 08/15/18 06:05 INR 2.2 08/15/18 06:05 APTT 69.0 SECONDS (21-34) H D 08/15/18 06:05
[2018-08-16 06:09] LABS: BASO # 0.1 K/uL (0.0-0.2); BASO % 0.8 % (0.0-2.0); EOS # 0.1 K/uL (0.0-0.7); EOS % 0.9 % (0.0-4.0); HEMOGLOBIN 11.5 g/dL (12.0-18.0); LYMPH # 1.8 K/uL (1.0-4.3); LYMPH % 22.3 % (20.0-40.0); MEAN CELL VOLUME 79.7 fL (80.0-94.0); MEAN CORPUSCULAR HEMOGLOBIN 25.6 pg (27.0-31.0); MEAN CORPUSCULAR HGB CONC 32.1 g/dL (33.0-37.0); MEAN PLATELET VOLUME 8.5 fL (7.2-11.7); MONO # 0.8 K/uL (0.0-0.8); MONO % 9.6 % (0.0-10.0); NEUT # 5.4 K/uL (1.8-7.0); NEUT % 66.4 % (50.0-75.0); NRBC % 0.4 % (0.0-2.0); RBC 4.5 Mil/uL (4.40-5.90); RED CELL DISTRIBUTION WIDTH 19.2 % (11.5-14.5); WHITE BLOOD COUNT 8.1 K/uL (4.8-10.8)
[2018-08-16 06:16] LABS: PARTIAL THROMBOPLASTIN TIME 64.3 SECONDS (21-34)
[2018-08-16 06:26] LABS: ALB/GLOB RATIO 1.1 (1.0-2.1); ALBUMIN 3.3 g/dL (3.5-5.0); ALT/SGPT 112 U/L (21-72); AST/SGOT 107 U/L (17-59); BLOOD UREA NITROGEN 39 mg/dL (9-20); CALCIUM 8.9 mg/dl (8.6-10.4); GFR NON-AFRICAN AMERICAN > 60
[2018-08-16 07:01] LABS: PROTHROMBIN TIME 22.2 SECONDS (9.7-12.2)
--- NOTE | 2018-08-16 07:55 | CP.PCM.PN ---
Subjective - Date & Time of Evaluation Date of Evaluation: 08/16/18 Time of Evaluation: 07:52 - Subjective Subjective: Patient denies having nausea, vomiting, abdominal pain, rectal bleeding. He has not had a bowel movement in the past two days. Objective - Vital Signs/Intake and Output Vital Signs (last 24 hours): Temp Pulse Resp BP Pulse Ox 97.4 F L 78 10 L 105/70 99 08/16/18 04:00 08/16/18 06:03 08/16/18 06:03 08/16/18 06:03 08/16/18 06:03 Intake and Output: 08/16/18 08/16/18 06:59 18:59 Intake Total 546.8 Output Total 650 Balance -103.2 - Medications Medications: Current Medications Aspirin (Aspirin Chewable) 81 mg PO DAILY [facility] Last Admin: 08/15/18 10:14 Dose: 81 mg Carvedilol (Coreg) 6.25 mg PO BID [facility] Last Admin: 08/15/18 18:39 Dose: 6.25 mg Docusate Sodium (Colace) 100 mg PO TID [facility] Last Admin: 08/15/18 18:39 Dose: 100 mg Folic Acid (Folic Acid) 1 mg PO DAILY [facility] Last Admin: 08/15/18 10:24 Dose: 1 mg Furosemide (Lasix) 20 mg PO BID [facility] Last Admin: 08/15/18 18:39 Dose: 20 mg Furosemide (Lasix) 20 mg IVP ONCE ONE Stop: 08/16/18 15:01 Heparin Sodium/Sodium Chloride (Heparin 57386 Units/250ml 1/2 Normal Saline) 25,000 units in 250 mls @ 8.91 mls/hr IV .Q24H PRN; Protocol PRN Reason: ADJUST RATE PER PROTOCOL Last Admin: 08/15/18 12:55 Dose: 9 units/kg/hr, 8.91 mls/hr Lisinopril (Zestril) 5 mg PO DAILY [facility] Last Admin: 08/15/18 11:53 Dose: 5 mg Morphine Sulfate (Morphine) 1 mg IVP Q4 PRN PRN Reason: Pain, moderate (4-7) Last Admin: 08/16/18 04:26 Dose: 1 mg Pantoprazole Sodium (Protonix Ec Tab) 40 mg PO DAILY [facility] Last Admin: 08/15/18 10:14 Dose: 40 mg Rosuvastatin Calcium (Crestor) 5 mg PO QPM [facility] Last Admin: 08/07/18 17:51 Dose: 5 mg Spironolactone (Aldactone) 25 mg PO DAILY [facility] Last Admin: 08/15/18 11:52 Dose: 25 mg Thiamine HCl (Vitamin B1 Tab) 100 mg PO DAILY [facility] Last Admin: 08/15/18 10:14 Dose: 100 mg - Labs Labs: 08/16/18 06:03 08/16/18 06:03 PT 22.2 SECONDS (9.7-12.2) H 08/16/18 06:03 INR 2.0 08/16/18 06:03 APTT 64.3 SECONDS (21-34) H 08/16/18 06:03 - Constitutional Appears: No Acute Distress - Head Exam Head Exam: ATRAUMATIC, NORMOCEPHALIC - Eye Exam Eye Exam: EOMI, PERRL, Scleral icterus - Neck Exam Neck Exam: absent: Lymphadenopathy, Thyromegaly - Respiratory Exam Respiratory Exam: NORMAL BREATHING PATTERN. absent: Rales, Rhonchi, Wheezes - Cardiovascular Exam Cardiovascular Exam: REGULAR RHYTHM, +S1, +S2. absent: Gallop, Rubs, Murmur - GI/Abdominal Exam GI & Abdominal Exam: Distended, Soft, Normal Bowel Sounds. absent: Tenderness, Mass, Organomegaly - Rectal Exam Rectal Exam: Deferred - Extremities Exam Extremities Exam: Pedal Edema. absent: Calf Tenderness Assessment and Plan (1) Elevated liver enzymes Assessment & Plan: The transaminases continue to improve: AST 107, ALT 112. ALKP has increased slightly to 128. TBILI is 5.2, down from 5.6. Sonogram showed no evidence of portal vein or hepatic vein thrombosis. Will continue to follow liver enzymes. Status: Acute
[2018-08-16] MEDS: Pantoprazole 40 mg EC Tab PO SCH (09:56)
--- NOTE | 2018-08-16 15:11 | CP.PCM.PN ---
Subjective - Date & Time of Evaluation Date of Evaluation: 08/16/18 Time of Evaluation: 15:09 - Subjective Subjective: PGY-[address] Purcell, Nephro Pt leg pain persists, no change since admission. Dyspneic chest pain improves slightly. No fever/chills Objective - Vital Signs/Intake and Output Vital Signs (last 24 hours): Temp Pulse Resp BP Pulse Ox 97.6 F 79 11 L 118/69 98 08/16/18 12:00 08/16/18 13:00 08/16/18 13:00 08/16/18 14:28 08/16/18 08:03 Intake and Output: 08/16/18 08/16/18 06:59 18:59 Intake Total 546.8 1253.4 Output Total 650 Balance -103.2 1253.4 - Medications Medications: Current Medications Aspirin (Aspirin Chewable) 81 mg PO DAILY [facility] Last Admin: 08/16/18 09:54 Dose: 81 mg Carvedilol (Coreg) 6.25 mg PO BID [facility] Last Admin: 08/16/18 09:55 Dose: 6.25 mg Docusate Sodium (Colace) 100 mg PO TID [facility] Last Admin: 08/16/18 09:55 Dose: 100 mg Folic Acid (Folic Acid) 1 mg PO DAILY [facility] Last Admin: 08/16/18 12:00 Dose: 1 mg Furosemide (Lasix) 20 mg PO BID [facility] Last Admin: 08/16/18 09:55 Dose: 20 mg Lisinopril (Zestril) 5 mg PO DAILY [facility] Last Admin: 08/16/18 09:55 Dose: 5 mg Morphine Sulfate (Morphine) 1 mg IVP Q4 PRN PRN Reason: Pain, moderate (4-7) Last Admin: 08/16/18 09:56 Dose: 1 mg Pantoprazole Sodium (Protonix Ec Tab) 40 mg PO DAILY [facility] Last Admin: 08/16/18 09:56 Dose: 40 mg Rosuvastatin Calcium (Crestor) 5 mg PO QPM [facility] Last Admin: 08/07/18 17:51 Dose: 5 mg Spironolactone (Aldactone) 25 mg PO DAILY [facility] Last Admin: 08/16/18 09:54 Dose: 25 mg Thiamine HCl (Vitamin B1 Tab) 100 mg PO DAILY [facility] Last Admin: 08/16/18 09:56 Dose: 100 mg - Labs Labs: 08/16/18 06:03 08/16/18 06:03 PT 22.2 SECONDS (9.7-12.2) H 08/16/18 06:03 INR 2.0 08/16/18 06:03 APTT 64.3 SECONDS (21-34) H 08/16/18 06:03 - Constitutional Appears: No Acute Distress - Head Exam Head Exam: ATRAUMATIC, NORMAL INSPECTION, NORMOCEPHALIC - Eye Exam Eye Exam: EOMI, Normal appearance, PERRL, Scleral icterus Pupil Exam: NORMAL ACCOMODATION - ENT Exam ENT Exam: Mucous Membranes Moist - Neck Exam Additional comments: supple. no jvd - Respiratory Exam Respiratory Exam: Clear to Ausculation Bilateral. absent: Rales, Rhonchi, Wheezes - Cardiovascular Exam Cardiovascular Exam: REGULAR RHYTHM, +S1, +S2. absent: Murmur - GI/Abdominal Exam GI & Abdominal Exam: Soft, Tenderness, Normal Bowel Sounds - Extremities Exam Extremities Exam: Calf Tenderness, Pedal Edema - Neurological Exam Neurological Exam: Alert, Awake, Oriented x3 - Psychiatric Exam Psychiatric exam: Normal Affect, Normal Mood - Skin Skin Exam: Dry, Warm Assessment and Plan - Assessment and Plan (Free Text) Plan: Mr Love, 38 AAM, former smoker with PMHx non-ischemic cardiomyopathy (EF 13) non-compliant with life-vest, not-ambulating for a month, came in for dyspnea and dyspnic chest pain and was found to have LLE DVT, R main PE, and b-vent cardiac thrombi. He is s/p TPA and IVC (08/08), pending decision on AICD. MELD-Na in high 20s (20% 3 month mortality) class C (periop abd surgery is 80s%). He is downgraded to tele on 08/16. (1) Acute renal failure ATN @ Cre 2.8 [worst] - resolved secondary to contrast nephropathy Oliguria/polyuriga resolved. stable lytes and volume status. Continue strict i/o Did not have emergent dialysis due to TPA Salt loading to prevent contrast nephropathy as tolerated by cardiac status (2) Hyponatermia at 131 likely hypovolemia and aldactone. - CXR similar to 3 days ago. Uosm 531 - continue to observe (3) b-vent cardiac thrombi s/p TPA Pulmonary embolism with DVT - on heparin gtt. Not bridging yet due to AICD planning - Repeat ECHO (08/10) official report still demonstrates moderate to large thrombi involving apex and postero-lateral wall, latter being mobile with possible detached thrombus in aortic outflow tract; Less thrombus burden in LV compared to prior study, no thrombi in RA or upper IVC - Not a candidate for surgical thrombectomy (4) Severe non-ischemic cardiomyopathy, systolic CHF, acute on chronic - improving - AICD placement when INR @ 1.5. Pending Lifevest - lisinopril 5, aldactone 25 bid, decrease lasix to 20 bid PO. On ASA, coreg (5) Acute liver injury with coagulopathy - slightly improving Chronic passive congestion Elevated INR 2 with transaminitis with mild abdominal pain, s/p vit K and FFP MELD-Na 27 (20% 3 month mortality) Child-pennington class C (periop abd surgery is 82%). H/H stable, CBD 3mm, Hep panel, HIV neg patent hepatic veins and portal veins s/r/d/w Dr Purcell
--- NOTE | 2018-08-16 17:09 | RAD ---
HISTORY: R/O fluid overload COMPARISON: Chest x-ray performed 08/13/18 TECHNIQUE: Chest, one view. FINDINGS: LUNGS: Hazy opacity may represent atelectasis or pneumonia at the right lung base. Retrocardiac opacity may reflect atelectasis/pneumonia and or small effusion. No definite pneumothorax CARDIOVASCULAR: Marked cardiomegaly. OSSEOUS STRUCTURES: No acute osseous abnormality identified. VISUALIZED UPPER ABDOMEN: Unremarkable. OTHER FINDINGS: None. IMPRESSION: Hazy opacity may represent atelectasis or pneumonia at the right lung base. Retrocardiac opacity may reflect atelectasis/pneumonia and or small effusion. Marked cardiomegaly.
[2018-08-16] MEDS: Heparin25000 units/250ml 1/2NS 25,000 UNITS/250 ML BAG IV PRN (18:12)
--- NOTE | 2018-08-16 21:48 | CP.PCM.PN ---
Subjective - Date & Time of Evaluation Date of Evaluation: 08/16/18 Time of Evaluation: 16:30 - Subjective Subjective: Patient seen and examined. Not in distress Objective - Additional Findings Additional findings: - Constitutional Appears: Non-toxic, No Acute Distress - Head Exam Head Exam: ATRAUMATIC, NORMAL INSPECTION, NORMOCEPHALIC - Eye Exam Eye Exam: EOMI, Normal appearance - ENT Exam ENT Exam: Mucous Membranes Moist - Respiratory Exam Respiratory Exam: Decreased Breath Sounds, Clear to Ausculation Bilateral. absent: Accessory Muscle Use, Rales, Rhonchi, Wheezes, Respiratory Distress - Cardiovascular Exam Cardiovascular Exam: REGULAR RHYTHM, RRR, +S1, +S2. absent: JVD - GI/Abdominal Exam GI & Abdominal Exam: Soft, Normal Bowel Sounds. absent: Tenderness - Extremities Exam Extremities Exam: Calf Tenderness (left calf ). absent: Pedal Edema - Neurological Exam Neurological Exam: Alert, Awake, Oriented x3 - Psychiatric Exam Psychiatric exam: Flat Affect - Skin Skin Exam: absent: Normal Color (ecchymosis on the right arm) Assessment and Plan - Assessment and Plan (Free Text) Plan: Systolic Heart Failure - bi-ventricular failure Nonischemic Cardiomyopathy Paroxysmal Vtach EP Critical Care Cns consulted, Dr. Jones, * Consult for AICD placement evaluation * He has persistently decreased LVEF (first seen on ECHO 08/19/17, EF <15%) * Patient experienced multiple events of non-sustained Vtach throughout the night of 08/08 to morning of 08/09. * Patient has not been a good candidate for heart transplant or life vest due to non compliance in the past. AICD placement cancelled again due to elevated INR * given Vitamin K+ 10mg IV once * transfused 1 unit of FFP * will re-evaluate tomorrow morning * AICD placement will hopefully be rescheduled tomorrow with Dr. Jones, if INR normalizes * patient will be transferred to [facility] for AICD placement, then will return to [facility] after completion of procedure. Medications: * Aspirin 81 mg PO daily * Heparin drip * Coreg 6.25 mg BID * Crestor 5 mg PO daily - on hold due to transaminitis * Lasix 20mg IVP BID Pulmonary Embolism Thrombus in Right Atrium (resolved) Thrombus in Left Ventricle DVT - left leg Vascular Surgery consulted, Dr. Alvares * s/p IVC filter placed on 08/08/2018 CTA Chest: Filling defect arising within distal R main pulmonary artery involving distal pulmonary artery branches. No evidence of saddle embolus. ECHO on 08/06 showed thrombus in Right Atrium and LV. Likely two separate processes. * tPa was given on 08/07. Repeat ECHO on 08/08 showed persistent clot attached to LV wall, but resolution of thrombus in right ventricle. * Patient will need bubble study to r/o shunt once clots are resolved and he is more stable. Lower Extremity Doppler * Left: acute DVT of the left distal popliteal, posterior tibial and peroneal veins, with moderate reduction of the venous return. Pulsatile venous flow noted of the left side. * Right: No evidence of deep or superficial vein thrombosis of the right lower extremity. Pulsatile venous flow noted of the right side. Patient will need to be continued on anti-coagulation therapy upon discharge. * Warfarin vs. Xarelto Vs. Eliquis; concern with Hx of noncompliance * Discussed with patient the importance of establishing care with a PMD for continued routine maintenance upon discharge. He reports understanding and agreement. He is to follow up in the [facility] in the [facility] upon discharge. 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 Continue to monitor Hepatic Insufficiency Improving continue to monitor Hold statin until normalization of transaminitis Life Vest Rehab for 2 weeks Re admit for AICD Objective - Vital Signs/Intake and Output Vital Signs (last 24 hours): Temp Pulse Resp BP Pulse Ox 98 F 83 21 140/70 97 08/16/18 18:16 08/16/18 18:16 08/16/18 18:16 08/16/18 18:16 08/16/18 18:16 Intake and Output: 08/16/18 08/17/18 18:59 06:59 Intake Total 1253.4 Balance 1253.4 - Medications Medications: Current Medications Aspirin (Aspirin Chewable) 81 mg PO DAILY [facility] Last Admin: 08/16/18 09:54 Dose: 81 mg Carvedilol (Coreg) 6.25 mg PO BID [facility] Last Admin: 08/16/18 18:15 Dose: 6.25 mg Docusate Sodium (Colace) 100 mg PO TID [facility] Last Admin: 08/16/18 18:16 Dose: 100 mg Folic Acid (Folic Acid) 1 mg PO DAILY [facility] Last Admin: 08/16/18 12:00 Dose: 1 mg Furosemide (Lasix) 20 mg PO BID [facility] Last Admin: 08/16/18 18:15 Dose: 20 mg Heparin Sodium/Sodium Chloride (Heparin 75321 Units/250ml 1/2 Normal Saline) 25,000 units in 250 mls @ 9.043 mls/hr IV .Q24H PRN; Protocol PRN Reason: PROTOCOL Last Admin: 08/16/18 18:12 Dose: 8.9 units/kg/hr, 9.043 mls/hr Lisinopril (Zestril) 5 mg PO DAILY [facility] Last Admin: 08/16/18 09:55 Dose: 5 mg Morphine Sulfate (Morphine) 1 mg IVP Q4 PRN PRN Reason: Pain, moderate (4-7) Last Admin: 08/16/18 09:56 Dose: 1 mg Pantoprazole Sodium (Protonix Ec Tab) 40 mg PO DAILY [facility] Last Admin: 08/16/18 09:56 Dose: 40 mg Rosuvastatin Calcium (Crestor) 5 mg PO QPM [facility] Last Admin: 08/07/18 17:51 Dose: 5 mg Spironolactone (Aldactone) 25 mg PO DAILY [facility] Last Admin: 08/16/18 09:54 Dose: 25 mg Thiamine HCl (Vitamin B1 Tab) 100 mg PO DAILY [facility] Last Admin: 08/16/18 09:56 Dose: 100 mg - Labs Labs: 08/16/18 06:03 08/16/18 06:03 PT 22.2 SECONDS (9.7-12.2) H 08/16/18 06:03 INR 2.0 08/16/18 06:03 APTT 64.3 SECONDS (21-34) H 08/16/18 06:03
--- NOTE | 2018-08-17 01:43 | PN ---
DATE: 08/17/2018 SUBJECTIVE: The patient is for cardiac catheterization. The patient is calm. He is resting. He is getting out of bed to chair. He is afebrile. He is weak. He denied any cardiopulmonary distress. PHYSICAL EXAMINATION: VITAL SIGNS: Blood pressure 92/63, pulse 61, respiratory rate 14, and temperature 97.1. LUNGS: Bilateral basal crepitations. CARDIOVASCULAR SYSTEM: S1 and S2 plus S3 positive. ABDOMEN: Soft and nontender. Bowel sounds are positive. ASSESSMENT: 1. Non-ischemic dilated cardiomyopathy, cardiac catheterization. 2. Pulmonary embolism with deep venous thrombosis. 3. Anemia. PLAN: Continue current medications. Cardiac evaluation. Beta samir, aspirin, Aldactone, DONNA inhibitor. The patient is being followed up closely. Aris Rivas MD
[2018-08-17 06:28] LABS: BASO % 0.5 % (0.0-2.0); EOS # 0.1 K/uL (0.0-0.7); EOS % 0.7 % (0.0-4.0); HEMOGLOBIN 11.8 g/dL (12.0-18.0); LYMPH # 1.5 K/uL (1.0-4.3); LYMPH % 18.5 % (20.0-40.0); MEAN CELL VOLUME 79.2 fL (80.0-94.0); MEAN CORPUSCULAR HEMOGLOBIN 25.1 pg (27.0-31.0); MEAN CORPUSCULAR HGB CONC 31.7 g/dL (33.0-37.0); MEAN PLATELET VOLUME 8.7 fL (7.2-11.7); MONO # 0.8 K/uL (0.0-0.8); MONO % 9.4 % (0.0-10.0); NEUT % 70.9 % (50.0-75.0); NRBC % 0.2 % (0.0-2.0); RBC 4.71 Mil/uL (4.40-5.90); RED CELL DISTRIBUTION WIDTH 19.2 % (11.5-14.5); WHITE BLOOD COUNT 8.4 K/uL (4.8-10.8)
[2018-08-17 06:37] LABS: INR 1.8; PARTIAL THROMBOPLASTIN TIME 60.3 SECONDS (21-34); PROTHROMBIN TIME 19.4 SECONDS (9.7-12.2)
[2018-08-17 06:41] LABS: ALBUMIN 3.4 g/dL (3.5-5.0); BLOOD UREA NITROGEN 32 mg/dL (9-20); GFR NON-AFRICAN AMERICAN > 60
[2018-08-17 06:42] LABS: ALT/SGPT 114 U/L (21-72); AST/SGOT 100 U/L (17-59)
--- NOTE | 2018-08-17 08:24 | RAD ---
HISTORY: fluid management COMPARISON: None available TECHNIQUE: Chest, one view. FINDINGS: Examination limited by habitus.. LUNGS: Mild to moderate venous congestion. Please note that chest x-ray has limited sensitivity for the detection of pulmonary masses. PLEURA: Probable small left pleural effusion. No definite pneumothorax . CARDIOVASCULAR: Cardiomegaly. No significant atherosclerotic calcification present. OSSEOUS STRUCTURES: No acute osseous abnormality identified. VISUALIZED UPPER ABDOMEN: Unremarkable. OTHER FINDINGS: None. IMPRESSION: Cardiomegaly. Mild to moderate venous congestion. Probable small pleural effusion.
[2018-08-17] MEDS: Pantoprazole 40 mg EC Tab PO SCH (10:15)
--- NOTE | 2018-08-17 11:08 | CP.PCM.PN ---
Subjective - Date & Time of Evaluation Date of Evaluation: 08/17/18 Time of Evaluation: 11:03 - Subjective Subjective: Patient denies having nausea, vomiting, abdominal pain. He is eating small portions of food because of abdominal distention. He had one loose bowel movement yesterday. Objective - Vital Signs/Intake and Output Vital Signs (last 24 hours): Temp Pulse Resp BP Pulse Ox 97.7 F 87 13 104/60 98 08/17/18 10:00 08/17/18 10:00 08/17/18 10:00 08/17/18 10:11 08/17/18 02:00 - Medications Medications: Current Medications Aspirin (Aspirin Chewable) 81 mg PO DAILY [facility] Last Admin: 08/17/18 10:12 Dose: 81 mg Carvedilol (Coreg) 6.25 mg PO BID [facility] Last Admin: 08/17/18 10:15 Dose: 6.25 mg Docusate Sodium (Colace) 100 mg PO TID [facility] Last Admin: 08/17/18 10:12 Dose: 100 mg Folic Acid (Folic Acid) 1 mg PO DAILY [facility] Last Admin: 08/17/18 10:11 Dose: 1 mg Furosemide (Lasix) 20 mg PO BID [facility] Last Admin: 08/17/18 10:11 Dose: 20 mg Heparin Sodium/Sodium Chloride (Heparin 71537 Units/250ml 1/2 Normal Saline) 25,000 units in 250 mls @ 9.043 mls/hr IV .Q24H PRN; Protocol PRN Reason: PROTOCOL Last Admin: 08/16/18 18:12 Dose: 8.9 units/kg/hr, 9.043 mls/hr Lisinopril (Zestril) 5 mg PO DAILY [facility] Last Admin: 08/17/18 10:13 Dose: 5 mg Morphine Sulfate (Morphine) 1 mg IVP Q4 PRN PRN Reason: Pain, moderate (4-7) Last Admin: 08/16/18 09:56 Dose: 1 mg Pantoprazole Sodium (Protonix Ec Tab) 40 mg PO DAILY [facility] Last Admin: 08/17/18 10:15 Dose: 40 mg Rosuvastatin Calcium (Crestor) 5 mg PO QPM [facility] Last Admin: 08/07/18 17:51 Dose: 5 mg Spironolactone (Aldactone) 25 mg PO DAILY [facility] Last Admin: 08/17/18 10:12 Dose: 25 mg Thiamine HCl (Vitamin B1 Tab) 100 mg PO DAILY [facility] Last Admin: 08/17/18 10:13 Dose: 100 mg - Labs Labs: 08/17/18 06:21 08/17/18 06:21 PT 19.4 SECONDS (9.7-12.2) H 08/17/18 06:21 INR 1.8 08/17/18 06:21 APTT 60.3 SECONDS (21-34) H 08/17/18 06:21 - Constitutional Appears: No Acute Distress - Head Exam Head Exam: ATRAUMATIC, NORMOCEPHALIC - Eye Exam Eye Exam: EOMI, PERRL, Scleral icterus - Neck Exam Neck Exam: absent: Lymphadenopathy, Thyromegaly - Respiratory Exam Respiratory Exam: NORMAL BREATHING PATTERN. absent: Rales, Rhonchi, Wheezes - Cardiovascular Exam Cardiovascular Exam: REGULAR RHYTHM, +S1, +S2. absent: Gallop, Rubs, Murmur - GI/Abdominal Exam GI & Abdominal Exam: Distended, Soft, Normal Bowel Sounds. absent: Tenderness, Mass, Organomegaly - Rectal Exam Rectal Exam: Deferred - Extremities Exam Extremities Exam: absent: Calf Tenderness Assessment and Plan (1) Elevated liver enzymes Assessment & Plan: Liver enzymes continue to improve: TBILI down to 4.8, AST 100, ALT 114, ALKP 134. Hepatic and portal veins are patent. Will follow LFTs. MELD score is rapidly improving as TBILI and creatinine improve. Child-Ahmadi classification applies to patients with cirrhosis, a diagnosis which has not been established in this patient. Status: Acute
--- NOTE | 2018-08-17 16:03 | CP.PCM.PN ---
Subjective - Date & Time of Evaluation Date of Evaluation: 08/17/18 Time of Evaluation: 15:15 - Subjective Subjective: 38 yo M w/ pmh of severe cardiomyopathy, htn, hyperlipidemia, admitted with PE, cardiac thrombus, nephrology following for renal insufficiency; Patient reports breathing improved; not drinking too much water; has been urinating well; got out of bed into chair today; Objective - Vital Signs/Intake and Output Vital Signs (last 24 hours): Temp Pulse Resp BP Pulse Ox 98 F 99 H 18 90/58 L 99 08/17/18 13:38 08/17/18 13:38 08/17/18 13:38 08/17/18 13:38 08/17/18 13:38 - Medications Medications: Current Medications Aspirin (Aspirin Chewable) 81 mg PO DAILY [facility] Last Admin: 08/17/18 10:12 Dose: 81 mg Carvedilol (Coreg) 6.25 mg PO BID [facility] Last Admin: 08/17/18 10:15 Dose: 6.25 mg Docusate Sodium (Colace) 100 mg PO TID [facility] Last Admin: 08/17/18 10:12 Dose: 100 mg Folic Acid (Folic Acid) 1 mg PO DAILY [facility] Last Admin: 08/17/18 10:11 Dose: 1 mg Furosemide (Lasix) 20 mg PO BID [facility] Last Admin: 08/17/18 10:11 Dose: 20 mg Heparin Sodium/Sodium Chloride (Heparin 99672 Units/250ml 1/2 Normal Saline) 25,000 units in 250 mls @ 9.043 mls/hr IV .Q24H PRN; Protocol PRN Reason: PROTOCOL Last Admin: 08/16/18 18:12 Dose: 8.9 units/kg/hr, 9.043 mls/hr Lisinopril (Zestril) 5 mg PO DAILY [facility] Last Admin: 08/17/18 10:13 Dose: 5 mg Morphine Sulfate (Morphine) 1 mg IVP Q4 PRN PRN Reason: Pain, moderate (4-7) Last Admin: 08/16/18 09:56 Dose: 1 mg Pantoprazole Sodium (Protonix Ec Tab) 40 mg PO DAILY [facility] Last Admin: 08/17/18 10:15 Dose: 40 mg Rosuvastatin Calcium (Crestor) 5 mg PO QPM [facility] Last Admin: 08/07/18 17:51 Dose: 5 mg Spironolactone (Aldactone) 25 mg PO DAILY [facility] Last Admin: 08/17/18 10:12 Dose: 25 mg Thiamine HCl (Vitamin B1 Tab) 100 mg PO DAILY [facility] Last Admin: 08/17/18 10:13 Dose: 100 mg - Labs Labs: 08/17/18 06:21 08/17/18 06:21 PT 19.4 SECONDS (9.7-12.2) H 08/17/18 06:21 INR 1.8 08/17/18 06:21 APTT 60.3 SECONDS (21-34) H 08/17/18 06:21 - Constitutional Appears: Non-toxic, No Acute Distress - ENT Exam ENT Exam: Mucous Membranes Moist - Neck Exam Neck Exam: Normal Inspection - Respiratory Exam Respiratory Exam: Clear to Ausculation Bilateral. absent: Respiratory Distress - Cardiovascular Exam Cardiovascular Exam: RRR, +S1, +S2. absent: Gallop, JVD, Rubs - GI/Abdominal Exam GI & Abdominal Exam: Distended, Soft - Extremities Exam Additional comments: 2-3+ lower leg pitting edema R>L; - Neurological Exam Neurological Exam: Alert, Awake - Psychiatric Exam Psychiatric exam: absent: Agitated - Skin Skin Exam: Warm. absent: Cyanosis Assessment and Plan (1) Acute renal failure Assessment & Plan: ATN after contrast injury, resolving; renal function continues to improve; stable volume and electrolyte status; will continue to monitor closely given his severe CHF status; -avoid nephrotoxic agetns; Status: Acute (2) Congestive heart failure Assessment & Plan: With severe systolic dysfunction; doesn't appear volume overloaded in spite of marked leg edema; -continue to optimize CHF status with B-blockers, DONNA inhibitor and aldactone; will continue current doses as BP low/normal; -continue PO lasix 20 mg bid; Status: Chronic (3) Hyponatremia Assessment & Plan: Mild and relatively stable; high urine osm consistent with intravascular volume depletion in the setting of being on diuretics; -patient advised to limit PO fluid intake to <1L per day; Status: Acute (4) Metabolic acidosis Status: Resolved (5) Pulmonary embolism Assessment & Plan: With multiple other thrombi; needs to continue AC indefinitely; Status: Acute
[2018-08-17] MEDS: Heparin25000 units/250ml 1/2NS 25,000 UNITS/250 ML BAG IV PRN (21:50)
--- NOTE | 2018-08-18 04:08 | CP.PCM.PN ---
Subjective - Date & Time of Evaluation Date of Evaluation: 08/17/18 Time of Evaluation: 08:00 - Subjective Subjective: dict Objective - Vital Signs/Intake and Output Vital Signs (last 24 hours): Temp Pulse Resp BP Pulse Ox 98.0 F 86 16 101/73 97 08/17/18 22:00 08/17/18 22:00 08/17/18 22:00 08/17/18 22:00 08/17/18 22:00 Intake and Output: 08/17/18 08/18/18 18:59 06:59 Intake Total 1628 250 Output Total 600 Balance 1028 250 - Medications Medications: Current Medications Aspirin (Aspirin Chewable) 81 mg PO DAILY [facility] Last Admin: 08/17/18 10:12 Dose: 81 mg Carvedilol (Coreg) 6.25 mg PO BID [facility] Last Admin: 08/17/18 18:47 Dose: Not Given Docusate Sodium (Colace) 100 mg PO TID [facility] Last Admin: 08/17/18 18:47 Dose: Not Given Folic Acid (Folic Acid) 1 mg PO DAILY [facility] Last Admin: 08/17/18 10:11 Dose: 1 mg Furosemide (Lasix) 20 mg PO BID [facility] Last Admin: 08/17/18 18:47 Dose: Not Given Heparin Sodium/Sodium Chloride (Heparin 45790 Units/250ml 1/2 Normal Saline) 25,000 units in 250 mls @ 9.043 mls/hr IV .Q24H PRN; Protocol PRN Reason: PROTOCOL Last Admin: 08/17/18 21:50 Dose: 8.9 units/kg/hr, 9.043 mls/hr Lisinopril (Zestril) 5 mg PO DAILY [facility] Last Admin: 08/17/18 10:13 Dose: 5 mg Morphine Sulfate (Morphine) 1 mg IVP Q4 PRN PRN Reason: Pain, moderate (4-7) Last Admin: 08/17/18 21:49 Dose: 1 mg Pantoprazole Sodium (Protonix Ec Tab) 40 mg PO DAILY [facility] Last Admin: 08/17/18 10:15 Dose: 40 mg Rosuvastatin Calcium (Crestor) 5 mg PO QPM [facility] Last Admin: 08/07/18 17:51 Dose: 5 mg Spironolactone (Aldactone) 25 mg PO DAILY [facility] Last Admin: 08/17/18 10:12 Dose: 25 mg Thiamine HCl (Vitamin B1 Tab) 100 mg PO DAILY [facility] Last Admin: 08/17/18 10:13 Dose: 100 mg - Labs Labs: 08/17/18 06:21 08/17/18 06:21 PT 19.4 SECONDS (9.7-12.2) H 08/17/18 06:21 INR 1.8 08/17/18 06:21 APTT 60.3 SECONDS (21-34) H 08/17/18 06:21
[2018-08-18 06:05] LABS: BASO # 0.1 K/uL (0.0-0.2); BASO % 0.6 % (0.0-2.0); EOS # 0.1 K/uL (0.0-0.7); EOS % 1.3 % (0.0-4.0); HEMOGLOBIN 11.5 g/dL (12.0-18.0); LYMPH # 1.9 K/uL (1.0-4.3); LYMPH % 21.5 % (20.0-40.0); MEAN CORPUSCULAR HEMOGLOBIN 25.5 pg (27.0-31.0); MEAN CORPUSCULAR HGB CONC 31.8 g/dL (33.0-37.0); MEAN PLATELET VOLUME 8.4 fL (7.2-11.7); MONO # 0.9 K/uL (0.0-0.8); MONO % 10.2 % (0.0-10.0); NEUT # 5.8 K/uL (1.8-7.0); NEUT % 66.4 % (50.0-75.0); NRBC % 0.2 % (0.0-2.0); RBC 4.5 Mil/uL (4.40-5.90); RED CELL DISTRIBUTION WIDTH 19.8 % (11.5-14.5); WHITE BLOOD COUNT 8.8 K/uL (4.8-10.8)
[2018-08-18 06:08] LABS: INR 1.7; PARTIAL THROMBOPLASTIN TIME 49.3 SECONDS (21-34); PROTHROMBIN TIME 18.5 SECONDS (9.7-12.2)
[2018-08-18 06:19] LABS: ALBUMIN 3.3 g/dL (3.5-5.0); ALT/SGPT 103 U/L (21-72); AST/SGOT 106 U/L (17-59); BLOOD UREA NITROGEN 25 mg/dL (9-20); CALCIUM 8.8 mg/dl (8.6-10.4); GFR NON-AFRICAN AMERICAN > 60
--- NOTE | 2018-08-18 07:09 | PN ---
DATE: 08/18/2018 SUBJECTIVE: The patient is waiting for AICD placement. In the meantime, he is feeling better, less short of breath. No chest pain. No nausea or vomiting. PHYSICAL EXAMINATION: VITAL SIGNS: Blood pressure 101/73, pulse 86, respiratory rate 16, temperature 98. LUNGS: Bilateral basal crepitation. CARDIOVASCULAR: S1, S2 plus S3 positive. ABDOMEN: Soft. ASSESSMENT: 1. Severe end-stage dilated cardiomyopathy, low left ventricular ejection fraction, pending automatic implantable cardioverter-defibrillator. 2. Deep venous thrombosis, pulmonary embolism. PLAN: Continue to monitor the patient. Pending AICD placement. Aris Rivas MD
[2018-08-18] MEDS: Pantoprazole 40 mg EC Tab PO SCH (09:21)
--- NOTE | 2018-08-18 09:59 | CP.PCM.PN ---
Subjective - Date & Time of Evaluation Date of Evaluation: 08/18/18 Time of Evaluation: 09:56 - Subjective Subjective: Patient denies having nausea, vomiting, abdominal pain. He had one soft bowel movement this morning, without blood, Objective - Vital Signs/Intake and Output Vital Signs (last 24 hours): Temp Pulse Resp BP Pulse Ox 98.3 F 82 16 100/65 97 08/18/18 06:00 08/18/18 06:00 08/18/18 06:00 08/18/18 09:21 08/18/18 06:00 Intake and Output: 08/18/18 08/18/18 06:59 18:59 Intake Total 250 Balance 250 - Medications Medications: Current Medications Aspirin (Aspirin Chewable) 81 mg PO DAILY [facility] Last Admin: 08/18/18 09:22 Dose: 81 mg Carvedilol (Coreg) 6.25 mg PO BID [facility] Last Admin: 08/18/18 09:22 Dose: 6.25 mg Docusate Sodium (Colace) 100 mg PO TID [facility] Last Admin: 08/18/18 09:21 Dose: 100 mg Folic Acid (Folic Acid) 1 mg PO DAILY [facility] Last Admin: 08/18/18 09:21 Dose: 1 mg Furosemide (Lasix) 20 mg PO BID [facility] Last Admin: 08/18/18 09:21 Dose: 20 mg Heparin Sodium/Sodium Chloride (Heparin 56609 Units/250ml 1/2 Normal Saline) 25,000 units in 250 mls @ 9.043 mls/hr IV .Q24H PRN; Protocol PRN Reason: PROTOCOL Last Admin: 08/17/18 21:50 Dose: 8.9 units/kg/hr, 9.043 mls/hr Lisinopril (Zestril) 5 mg PO DAILY [facility] Last Admin: 08/18/18 09:22 Dose: Not Given Morphine Sulfate (Morphine) 1 mg IVP Q4 PRN PRN Reason: Pain, moderate (4-7) Last Admin: 08/17/18 21:49 Dose: 1 mg Pantoprazole Sodium (Protonix Ec Tab) 40 mg PO DAILY [facility] Last Admin: 08/18/18 09:21 Dose: 40 mg Rosuvastatin Calcium (Crestor) 5 mg PO QPM [facility] Last Admin: 08/07/18 17:51 Dose: 5 mg Spironolactone (Aldactone) 25 mg PO DAILY [facility] Last Admin: 08/18/18 09:21 Dose: 25 mg Thiamine HCl (Vitamin B1 Tab) 100 mg PO DAILY [facility] Last Admin: 08/18/18 09:21 Dose: 100 mg - Labs Labs: 08/18/18 05:56 08/18/18 05:56 PT 18.5 SECONDS (9.7-12.2) H 08/18/18 05:56 INR 1.7 08/18/18 05:56 APTT 49.3 SECONDS (21-34) H D 08/18/18 05:56 - Constitutional Appears: No Acute Distress - Head Exam Head Exam: ATRAUMATIC, NORMOCEPHALIC - Eye Exam Eye Exam: EOMI, PERRL - Neck Exam Neck Exam: absent: Lymphadenopathy, Thyromegaly - Respiratory Exam Respiratory Exam: NORMAL BREATHING PATTERN. absent: Rales, Rhonchi, Wheezes - GI/Abdominal Exam GI & Abdominal Exam: Distended, Soft, Normal Bowel Sounds. absent: Tenderness, Mass, Organomegaly - Rectal Exam Rectal Exam: Deferred - Extremities Exam Extremities Exam: Pedal Edema Assessment and Plan (1) Elevated liver enzymes Assessment & Plan: LFTs continue to improve: AST 106, ALT 103, ALKP 129, TBILI 3.8. PT is down to 18.5. Without any additional complications, liver enzymes should return to baseline over the next few weeks. Status: Acute
[2018-08-18] MEDS ORDERED: guaiFENesin DM 200 mg-20 mg/10 ml UD PO PRN (11:48)
--- NOTE | 2018-08-18 12:32 | RAD ---
HISTORY: fluid management COMPARISON: Chest x-ray performed 08/17/18 TECHNIQUE: Chest, one view. FINDINGS: LUNGS: Subtle hazy right midlung zone infiltrate. Mild venous congestion. PLEURA: No significant pleural effusion identified. No definite pneumothorax . CARDIOVASCULAR: Cardiomegaly. No significant atherosclerotic calcification identified. OSSEOUS STRUCTURES: No acute osseous abnormality identified. VISUALIZED UPPER ABDOMEN: Unremarkable. OTHER FINDINGS: None. IMPRESSION: Subtle hazy right midlung zone infiltrate. Mild venous congestion.
[2018-08-18] MEDS: Benzocaine/Menthol (Cepacol) Lozenge MT PRN (14:15)
--- NOTE | 2018-08-18 22:30 | CP.PCM.PN ---
Subjective - Date & Time of Evaluation Date of Evaluation: 08/18/18 Time of Evaluation: 08:40 - Subjective Subjective: dict Objective - Vital Signs/Intake and Output Vital Signs (last 24 hours): Temp Pulse Resp BP Pulse Ox 97 F L 91 H 20 103/71 99 08/18/18 20:00 08/18/18 20:00 08/18/18 20:00 08/18/18 20:00 08/18/18 20:00 Intake and Output: 08/18/18 08/19/18 18:59 06:59 Intake Total 858 9.1 Output Total 2 Balance 856 9.1 - Medications Medications: Current Medications Aspirin (Aspirin Chewable) 81 mg PO DAILY [facility] Last Admin: 08/18/18 09:22 Dose: 81 mg Benzocaine/Menthol (Cepacol Sore Throat) 1 radha MT Q3 PRN PRN Reason: Sore Throat Last Admin: 08/18/18 14:15 Dose: 1 radha Carvedilol (Coreg) 6.25 mg PO BID [facility] Last Admin: 08/18/18 17:32 Dose: Not Given Docusate Sodium (Colace) 100 mg PO TID [facility] Last Admin: 08/18/18 17:31 Dose: 100 mg Folic Acid (Folic Acid) 1 mg PO DAILY [facility] Last Admin: 08/18/18 09:21 Dose: 1 mg Furosemide (Lasix) 20 mg PO BID [facility] Last Admin: 08/18/18 17:31 Dose: 20 mg Guaifenesin/Dextromethorphan (Robitussin Dm) 10 ml PO Q4H PRN PRN Reason: Cough and congestion Last Admin: 08/18/18 14:15 Dose: 10 ml Heparin Sodium/Sodium Chloride (Heparin 90195 Units/250ml 1/2 Normal Saline) 25,000 units in 250 mls @ 9.043 mls/hr IV .Q24H PRN; Protocol PRN Reason: PROTOCOL Last Admin: 08/17/18 21:50 Dose: 8.9 units/kg/hr, 9.043 mls/hr Lisinopril (Zestril) 10 mg PO DAILY [facility] Morphine Sulfate (Morphine) 1 mg IVP Q4 PRN PRN Reason: Pain, moderate (4-7) Last Admin: 08/17/18 21:49 Dose: 1 mg Pantoprazole Sodium (Protonix Ec Tab) 40 mg PO DAILY [facility] Last Admin: 08/18/18 09:21 Dose: 40 mg Rosuvastatin Calcium (Crestor) 5 mg PO QPM [facility] Last Admin: 08/07/18 17:51 Dose: 5 mg Spironolactone (Aldactone) 25 mg PO DAILY [facility] Last Admin: 08/18/18 09:21 Dose: 25 mg Thiamine HCl (Vitamin B1 Tab) 100 mg PO DAILY [facility] Last Admin: 08/18/18 09:21 Dose: 100 mg - Labs Labs: 08/18/18 05:56 08/18/18 05:56 PT 18.5 SECONDS (9.7-12.2) H 08/18/18 05:56 INR 1.7 08/18/18 05:56 APTT 49.3 SECONDS (21-34) H D 08/18/18 05:56
--- NOTE | 2018-08-18 23:24 | CP.PCM.PN ---
Subjective - Date & Time of Evaluation Date of Evaluation: 08/18/18 Time of Evaluation: 12:00 - Subjective Subjective: Patient reports breathing improved; tolerating diet; urinating well; Objective - Vital Signs/Intake and Output Vital Signs (last 24 hours): Temp Pulse Resp BP Pulse Ox 97 F L 91 H 20 103/71 99 08/18/18 20:00 08/18/18 20:00 08/18/18 20:00 08/18/18 20:00 08/18/18 20:00 Intake and Output: 08/18/18 08/19/18 18:59 06:59 Intake Total 858 9.1 Output Total 2 Balance 856 9.1 - Medications Medications: Current Medications Aspirin (Aspirin Chewable) 81 mg PO DAILY [facility] Last Admin: 08/18/18 09:22 Dose: 81 mg Benzocaine/Menthol (Cepacol Sore Throat) 1 radha MT Q3 PRN PRN Reason: Sore Throat Last Admin: 08/18/18 14:15 Dose: 1 radha Carvedilol (Coreg) 6.25 mg PO BID [facility] Last Admin: 08/18/18 17:32 Dose: Not Given Docusate Sodium (Colace) 100 mg PO TID [facility] Last Admin: 08/18/18 17:31 Dose: 100 mg Folic Acid (Folic Acid) 1 mg PO DAILY [facility] Last Admin: 08/18/18 09:21 Dose: 1 mg Furosemide (Lasix) 20 mg PO BID [facility] Last Admin: 08/18/18 17:31 Dose: 20 mg Guaifenesin/Dextromethorphan (Robitussin Dm) 10 ml PO Q4H PRN PRN Reason: Cough and congestion Last Admin: 08/18/18 14:15 Dose: 10 ml Heparin Sodium/Sodium Chloride (Heparin 06696 Units/250ml 1/2 Normal Saline) 25,000 units in 250 mls @ 9.043 mls/hr IV .Q24H PRN; Protocol PRN Reason: PROTOCOL Last Admin: 08/17/18 21:50 Dose: 8.9 units/kg/hr, 9.043 mls/hr Lisinopril (Zestril) 10 mg PO DAILY [facility] Morphine Sulfate (Morphine) 1 mg IVP Q4 PRN PRN Reason: Pain, moderate (4-7) Last Admin: 08/17/18 21:49 Dose: 1 mg Pantoprazole Sodium (Protonix Ec Tab) 40 mg PO DAILY [facility] Last Admin: 08/18/18 09:21 Dose: 40 mg Rosuvastatin Calcium (Crestor) 5 mg PO QPM [facility] Last Admin: 08/07/18 17:51 Dose: 5 mg Spironolactone (Aldactone) 25 mg PO DAILY [facility] Last Admin: 08/18/18 09:21 Dose: 25 mg Thiamine HCl (Vitamin B1 Tab) 100 mg PO DAILY [facility] Last Admin: 08/18/18 09:21 Dose: 100 mg Zolpidem Tartrate (Ambien) 5 mg PO HS PRN PRN Reason: Insomnia Last Admin: 08/18/18 23:21 Dose: 5 mg - Labs Labs: 08/18/18 05:56 08/18/18 05:56 PT 18.5 SECONDS (9.7-12.2) H 08/18/18 05:56 INR 1.7 08/18/18 05:56 APTT 49.3 SECONDS (21-34) H D 08/18/18 05:56 - Constitutional Appears: Non-toxic, No Acute Distress - Eye Exam Eye Exam: Normal appearance - Respiratory Exam Respiratory Exam: Clear to Ausculation Bilateral. absent: Respiratory Distress - Cardiovascular Exam Cardiovascular Exam: RRR, +S1, +S2. absent: Gallop, Rubs - GI/Abdominal Exam GI & Abdominal Exam: Distended, Soft - Extremities Exam Additional comments: 2-3+ b/l lower leg edema; - Neurological Exam Neurological Exam: Alert, Awake - Psychiatric Exam Psychiatric exam: Normal Affect, Normal Mood. absent: Agitated - Skin Skin Exam: Warm. absent: Cyanosis Assessment and Plan (1) Acute renal failure Assessment & Plan: Resolving; stable lytes and volume status; continue to monitor; avoid nephrotoxic agents; Status: Acute (2) Congestive heart failure Assessment & Plan: Severe systolic dysfunction; relatively euvolemic on exam (has significant lower ext edema but no JVD and lungs clear); continue current diuretic regimen; will increase lisinopril to 10 mg daily; Status: Chronic (3) Hyponatremia Assessment & Plan: Borderline hyponatremia, stable; continue PO fluid restriction to <1.5L daily; Status: Acute (4) Metabolic acidosis Status: Resolved (5) Pulmonary embolism Assessment & Plan: With cardiac thrombi; needs to continue AC indefinitely; Status: Acute
--- NOTE | 2018-08-18 23:27 | CP.PCM.PN ---
Subjective - Date & Time of Evaluation Date of Evaluation: 08/17/18 Time of Evaluation: 10:15 - Subjective Subjective: Patient seen and examined. denies chest pain and dyspnea Objective - Additional Findings Additional findings: - Constitutional Appears: Non-toxic, No Acute Distress - Head Exam Head Exam: ATRAUMATIC, NORMAL INSPECTION, NORMOCEPHALIC - Eye Exam Eye Exam: EOMI, Normal appearance - ENT Exam ENT Exam: Mucous Membranes Moist - Respiratory Exam Respiratory Exam: Decreased Breath Sounds, Clear to Ausculation Bilateral. absent: Accessory Muscle Use, Rales, Rhonchi, Wheezes, Respiratory Distress - Cardiovascular Exam Cardiovascular Exam: REGULAR RHYTHM, RRR, +S1, +S2. absent: JVD - GI/Abdominal Exam GI & Abdominal Exam: Soft, Normal Bowel Sounds. absent: Tenderness - Extremities Exam Extremities Exam: Calf Tenderness (left calf ). absent: Pedal Edema - Neurological Exam Neurological Exam: Alert, Awake, Oriented x3 - Psychiatric Exam Psychiatric exam: Flat Affect - Skin Skin Exam: absent: Normal Color (ecchymosis on the right arm) Assessment and Plan - Assessment and Plan (Free Text) Plan: Systolic Heart Failure - bi-ventricular failure Nonischemic Cardiomyopathy Paroxysmal Vtach EP Marzipan Molder consulted, Dr. Jones, * Consult for AICD placement evaluation * He has persistently decreased LVEF (first seen on ECHO 08/19/17, EF <15%) * Patient experienced multiple events of non-sustained Vtach throughout the night of 08/08 to morning of 08/09. * Patient has not been a good candidate for heart transplant or life vest due to non compliance in the past. AICD placement cancelled again due to elevated INR * given Vitamin K+ 10mg IV once * transfused 1 unit of FFP * will re-evaluate tomorrow morning * AICD placement will hopefully be rescheduled tomorrow with Dr. Jones, if INR normalizes * patient will be transferred to [facility] for AICD placement, then will return to [facility] after completion of procedure. Medications: * Aspirin 81 mg PO daily * Heparin drip * Coreg 6.25 mg BID * Crestor 5 mg PO daily - on hold due to transaminitis * Lasix 20mg IVP BID Pulmonary Embolism Thrombus in Right Atrium (resolved) Thrombus in Left Ventricle DVT - left leg Vascular Surgery consulted, Dr. Alvares * s/p IVC filter placed on 08/08/2018 CTA Chest: Filling defect arising within distal R main pulmonary artery involving distal pulmonary artery branches. No evidence of saddle embolus. ECHO on 08/06 showed thrombus in Right Atrium and LV. Likely two separate processes. * tPa was given on 08/07. Repeat ECHO on 08/08 showed persistent clot attached to LV wall, but resolution of thrombus in right ventricle. * Patient will need bubble study to r/o shunt once clots are resolved and he is more stable. Lower Extremity Doppler * Left: acute DVT of the left distal popliteal, posterior tibial and peroneal veins, with moderate reduction of the venous return. Pulsatile venous flow noted of the left side. * Right: No evidence of deep or superficial vein thrombosis of the right lower extremity. Pulsatile venous flow noted of the right side. Patient will need to be continued on anti-coagulation therapy upon discharge. * Warfarin vs. Xarelto Vs. Eliquis; concern with Hx of noncompliance * Discussed with patient the importance of establishing care with a PMD for continued routine maintenance upon discharge. He reports understanding and agreement. He is to follow up in the [facility] in the [facility] upon discharge. 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 Continue to monitor Hepatic Insufficiency Improving continue to monitor Hold statin until normalization of transaminitis Life Vest Rehab for 2 weeks Re admit for AICD Objective - Vital Signs/Intake and Output Vital Signs (last 24 hours): Temp Pulse Resp BP Pulse Ox 97 F L 91 H 20 103/71 99 08/18/18 20:00 08/18/18 20:00 08/18/18 20:00 08/18/18 20:00 08/18/18 20:00 Intake and Output: 08/18/18 08/19/18 18:59 06:59 Intake Total 858 9.1 Output Total 2 Balance 856 9.1 - Medications Medications: Current Medications Aspirin (Aspirin Chewable) 81 mg PO DAILY [facility] Last Admin: 08/18/18 09:22 Dose: 81 mg Benzocaine/Menthol (Cepacol Sore Throat) 1 radha MT Q3 PRN PRN Reason: Sore Throat Last Admin: 08/18/18 14:15 Dose: 1 radha Carvedilol (Coreg) 6.25 mg PO BID [facility] Last Admin: 08/18/18 17:32 Dose: Not Given Docusate Sodium (Colace) 100 mg PO TID [facility] Last Admin: 08/18/18 17:31 Dose: 100 mg Folic Acid (Folic Acid) 1 mg PO DAILY [facility] Last Admin: 08/18/18 09:21 Dose: 1 mg Furosemide (Lasix) 20 mg PO BID [facility] Last Admin: 08/18/18 17:31 Dose: 20 mg Guaifenesin/Dextromethorphan (Robitussin Dm) 10 ml PO Q4H PRN PRN Reason: Cough and congestion Last Admin: 08/18/18 14:15 Dose: 10 ml Heparin Sodium/Sodium Chloride (Heparin 57175 Units/250ml 1/2 Normal Saline) 25,000 units in 250 mls @ 9.043 mls/hr IV .Q24H PRN; Protocol PRN Reason: PROTOCOL Last Admin: 08/17/18 21:50 Dose: 8.9 units/kg/hr, 9.043 mls/hr Lisinopril (Zestril) 10 mg PO DAILY [facility] Morphine Sulfate (Morphine) 1 mg IVP Q4 PRN PRN Reason: Pain, moderate (4-7) Last Admin: 08/17/18 21:49 Dose: 1 mg Pantoprazole Sodium (Protonix Ec Tab) 40 mg PO DAILY [facility] Last Admin: 08/18/18 09:21 Dose: 40 mg Rosuvastatin Calcium (Crestor) 5 mg PO QPM [facility] Last Admin: 08/07/18 17:51 Dose: 5 mg Spironolactone (Aldactone) 25 mg PO DAILY [facility] Last Admin: 08/18/18 09:21 Dose: 25 mg Thiamine HCl (Vitamin B1 Tab) 100 mg PO DAILY [facility] Last Admin: 08/18/18 09:21 Dose: 100 mg Zolpidem Tartrate (Ambien) 5 mg PO HS PRN PRN Reason: Insomnia Last Admin: 08/18/18 23:21 Dose: 5 mg - Labs Labs: 08/18/18 05:56 08/18/18 05:56 PT 18.5 SECONDS (9.7-12.2) H 08/18/18 05:56 INR 1.7 08/18/18 05:56 APTT 49.3 SECONDS (21-34) H D 08/18/18 05:56
--- NOTE | 2018-08-18 23:28 | CP.PCM.PN ---
Subjective - Date & Time of Evaluation Date of Evaluation: 08/18/18 Time of Evaluation: 18:45 - Subjective Subjective: Patient seen and examined. Not in distress Objective - Additional Findings Additional findings: - Constitutional Appears: Non-toxic, No Acute Distress - Head Exam Head Exam: ATRAUMATIC, NORMAL INSPECTION, NORMOCEPHALIC - Eye Exam Eye Exam: EOMI, Normal appearance - ENT Exam ENT Exam: Mucous Membranes Moist - Respiratory Exam Respiratory Exam: Decreased Breath Sounds, Clear to Ausculation Bilateral. absent: Accessory Muscle Use, Rales, Rhonchi, Wheezes, Respiratory Distress - Cardiovascular Exam Cardiovascular Exam: REGULAR RHYTHM, RRR, +S1, +S2. absent: JVD - GI/Abdominal Exam GI & Abdominal Exam: Soft, Normal Bowel Sounds. absent: Tenderness - Extremities Exam Extremities Exam: Calf Tenderness (left calf ). absent: Pedal Edema - Neurological Exam Neurological Exam: Alert, Awake, Oriented x3 - Psychiatric Exam Psychiatric exam: Flat Affect - Skin Skin Exam: absent: Normal Color (ecchymosis on the right arm) Assessment and Plan - Assessment and Plan (Free Text) Plan: Systolic Heart Failure - bi-ventricular failure Nonischemic Cardiomyopathy Paroxysmal Vtach EP [employer] consulted, Dr. Jones, * Consult for AICD placement evaluation * He has persistently decreased LVEF (first seen on ECHO 08/19/17, EF <15%) * Patient experienced multiple events of non-sustained Vtach throughout the night of 08/08 to morning of 08/09. * Patient has not been a good candidate for heart transplant or life vest due to non compliance in the past. AICD placement cancelled again due to elevated INR * given Vitamin K+ 10mg IV once * transfused 1 unit of FFP * will re-evaluate tomorrow morning * AICD placement will hopefully be rescheduled tomorrow with Dr. Jones, if INR normalizes * patient will be transferred to [facility] for AICD placement, then will return to [facility] after completion of procedure. Medications: * Aspirin 81 mg PO daily * Heparin drip * Coreg 6.25 mg BID * Crestor 5 mg PO daily - on hold due to transaminitis * Lasix 20mg IVP BID Pulmonary Embolism Thrombus in Right Atrium (resolved) Thrombus in Left Ventricle DVT - left leg Vascular Surgery consulted, Dr. Alvares * s/p IVC filter placed on 08/08/2018 CTA Chest: Filling defect arising within distal R main pulmonary artery involving distal pulmonary artery branches. No evidence of saddle embolus. ECHO on 08/06 showed thrombus in Right Atrium and LV. Likely two separate processes. * tPa was given on 08/07. Repeat ECHO on 08/08 showed persistent clot attached to LV wall, but resolution of thrombus in right ventricle. * Patient will need bubble study to r/o shunt once clots are resolved and he is more stable. Lower Extremity Doppler * Left: acute DVT of the left distal popliteal, posterior tibial and peroneal veins, with moderate reduction of the venous return. Pulsatile venous flow noted of the left side. * Right: No evidence of deep or superficial vein thrombosis of the right lower extremity. Pulsatile venous flow noted of the right side. Patient will need to be continued on anti-coagulation therapy upon discharge. * Warfarin vs. Xarelto Vs. Eliquis; concern with Hx of noncompliance * Discussed with patient the importance of establishing care with a PMD for continued routine maintenance upon discharge. He reports understanding and agreement. He is to follow up in the [facility] in the [facility] upon discharge. 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 Continue to monitor Hepatic Insufficiency Improving continue to monitor Hold statin until normalization of transaminitis Life Vest Rehab for 2 weeks Re admit for AICD Objective - Vital Signs/Intake and Output Vital Signs (last 24 hours): Temp Pulse Resp BP Pulse Ox 97 F L 91 H 20 103/71 99 08/18/18 20:00 08/18/18 20:00 08/18/18 20:00 08/18/18 20:00 08/18/18 20:00 Intake and Output: 08/18/18 08/19/18 18:59 06:59 Intake Total 858 9.1 Output Total 2 Balance 856 9.1 - Medications Medications: Current Medications Aspirin (Aspirin Chewable) 81 mg PO DAILY [facility] Last Admin: 08/18/18 09:22 Dose: 81 mg Benzocaine/Menthol (Cepacol Sore Throat) 1 radha MT Q3 PRN PRN Reason: Sore Throat Last Admin: 08/18/18 14:15 Dose: 1 radha Carvedilol (Coreg) 6.25 mg PO BID [facility] Last Admin: 08/18/18 17:32 Dose: Not Given Docusate Sodium (Colace) 100 mg PO TID [facility] Last Admin: 08/18/18 17:31 Dose: 100 mg Folic Acid (Folic Acid) 1 mg PO DAILY [facility] Last Admin: 08/18/18 09:21 Dose: 1 mg Furosemide (Lasix) 20 mg PO BID [facility] Last Admin: 08/18/18 17:31 Dose: 20 mg Guaifenesin/Dextromethorphan (Robitussin Dm) 10 ml PO Q4H PRN PRN Reason: Cough and congestion Last Admin: 08/18/18 14:15 Dose: 10 ml Heparin Sodium/Sodium Chloride (Heparin 60235 Units/250ml 1/2 Normal Saline) 25,000 units in 250 mls @ 9.043 mls/hr IV .Q24H PRN; Protocol PRN Reason: PROTOCOL Last Admin: 08/17/18 21:50 Dose: 8.9 units/kg/hr, 9.043 mls/hr Lisinopril (Zestril) 10 mg PO DAILY [facility] Morphine Sulfate (Morphine) 1 mg IVP Q4 PRN PRN Reason: Pain, moderate (4-7) Last Admin: 08/17/18 21:49 Dose: 1 mg Pantoprazole Sodium (Protonix Ec Tab) 40 mg PO DAILY [facility] Last Admin: 08/18/18 09:21 Dose: 40 mg Rosuvastatin Calcium (Crestor) 5 mg PO QPM [facility] Last Admin: 08/07/18 17:51 Dose: 5 mg Spironolactone (Aldactone) 25 mg PO DAILY [facility] Last Admin: 08/18/18 09:21 Dose: 25 mg Thiamine HCl (Vitamin B1 Tab) 100 mg PO DAILY [facility] Last Admin: 08/18/18 09:21 Dose: 100 mg Zolpidem Tartrate (Ambien) 5 mg PO HS PRN PRN Reason: Insomnia Last Admin: 08/18/18 23:21 Dose: 5 mg - Labs Labs: 08/18/18 05:56 08/18/18 05:56 PT 18.5 SECONDS (9.7-12.2) H 08/18/18 05:56 INR 1.7 08/18/18 05:56 APTT 49.3 SECONDS (21-34) H D 08/18/18 05:56
--- NOTE | 2018-08-19 02:23 | PN ---
DATE: 08/18/2018 SUBJECTIVE: The patient is feeling better. Less short of breath. Less cough. No fever. No chills. PHYSICAL EXAMINATION: VITAL SIGNS: Blood pressure 103/71, pulse 95, respiratory rate 20, temperature 97.9. LUNGS: Clear. No rales. CARDIOVASCULAR SYSTEM: S1 and S2, regular. ABDOMEN: Soft. ASSESSMENT: 1. Dilated cardiomyopathy, pending automatic implantable cardioverter-defibrillator. 2. Congestive heart failure. 3. Pulmonary embolism/deep venous thrombosis. PLAN: Medical management. Monitor the patient. Aris Rivas MD
[2018-08-19] MEDS: Heparin25000 units/250ml 1/2NS 25,000 UNITS/250 ML BAG IV PRN (05:20)
[2018-08-19 06:27] LABS: BASO # 0.1 K/uL (0.0-0.2); EOS # 0.1 K/uL (0.0-0.7); EOS % 1.4 % (0.0-4.0); HEMOGLOBIN 11.5 g/dL (12.0-18.0); LYMPH # 2.3 K/uL (1.0-4.3); LYMPH % 22.2 % (20.0-40.0); MEAN CELL VOLUME 80.6 fL (80.0-94.0); MEAN CORPUSCULAR HEMOGLOBIN 25.5 pg (27.0-31.0); MEAN CORPUSCULAR HGB CONC 31.6 g/dL (33.0-37.0); MEAN PLATELET VOLUME 8.8 fL (7.2-11.7); MONO # 0.9 K/uL (0.0-0.8); MONO % 8.8 % (0.0-10.0); NEUT # 6.9 K/uL (1.8-7.0); NEUT % 66.6 % (50.0-75.0); NRBC % 0.1 % (0.0-2.0); RBC 4.5 Mil/uL (4.40-5.90); RED CELL DISTRIBUTION WIDTH 19.8 % (11.5-14.5); WHITE BLOOD COUNT 10.4 K/uL (4.8-10.8)
[2018-08-19 06:28] LABS: INR 1.7; PARTIAL THROMBOPLASTIN TIME 49.2 SECONDS (21-34); PROTHROMBIN TIME 18.3 SECONDS (9.7-12.2)
[2018-08-19 06:39] LABS: ALB/GLOB RATIO 1.2 (1.0-2.1); ALBUMIN 3.6 g/dL (3.5-5.0); ALT/SGPT 109 U/L (21-72); AST/SGOT 118 U/L (17-59); BLOOD UREA NITROGEN 22 mg/dL (9-20); CALCIUM 8.7 mg/dl (8.6-10.4); GFR NON-AFRICAN AMERICAN > 60
--- NOTE | 2018-08-19 10:09 | RAD ---
Date of service: 08/19/2018 HISTORY: Fluid management. COMPARISON: 08/16/2018, 08/17/2018 and 08/18/2018. FINDINGS: LUNGS: Improving infiltrates. PLEURA: No significant pleural effusion identified, no pneumothorax apparent. CARDIOVASCULAR: No atherosclerotic calcification present Persistent cardiomegaly. OSSEOUS STRUCTURES: No significant abnormalities. VISUALIZED UPPER ABDOMEN: Normal. OTHER FINDINGS: None. IMPRESSION: New complete resolution of infiltrates particularly right lower lobe compared to prior studies. Stable cardiomegaly.
--- NOTE | 2018-08-19 10:46 | CP.PCM.PN ---
Subjective - Date & Time of Evaluation Date of Evaluation: 08/19/18 Time of Evaluation: 10:43 - Subjective Subjective: PGY-[address] Purcell, Nephro Pt laying in bed comfortably. Still has dry cough and dyspneic chest pain, slightly improved as compare to admission. Breathing improves. (+) BM. 500cc urine this AM Objective - Vital Signs/Intake and Output Vital Signs (last 24 hours): Temp Pulse Resp BP Pulse Ox 98.1 F 91 H 19 98/66 L 99 08/19/18 08:00 08/19/18 08:00 08/19/18 08:00 08/19/18 08:00 08/19/18 08:00 Intake and Output: 08/19/18 08/19/18 06:59 18:59 Intake Total 614.1 9.1 Output Total 200 Balance 414.1 9.1 - Medications Medications: Current Medications Aspirin (Aspirin Chewable) 81 mg PO DAILY [facility] Last Admin: 08/18/18 09:22 Dose: 81 mg Benzocaine/Menthol (Cepacol Sore Throat) 1 radha MT Q3 PRN PRN Reason: Sore Throat Last Admin: 08/18/18 14:15 Dose: 1 radha Carvedilol (Coreg) 6.25 mg PO BID [facility] Docusate Sodium (Colace) 100 mg PO TID [facility] Last Admin: 08/18/18 17:31 Dose: 100 mg Folic Acid (Folic Acid) 1 mg PO DAILY [facility] Last Admin: 08/18/18 09:21 Dose: 1 mg Furosemide (Lasix) 20 mg PO BID [facility] Last Admin: 08/18/18 17:31 Dose: 20 mg Guaifenesin/Dextromethorphan (Robitussin Dm) 10 ml PO Q4H PRN PRN Reason: Cough and congestion Last Admin: 08/18/18 14:15 Dose: 10 ml Heparin Sodium/Sodium Chloride (Heparin 75714 Units/250ml 1/2 Normal Saline) 25,000 units in 250 mls @ 9.043 mls/hr IV .Q24H PRN; Protocol PRN Reason: PROTOCOL Last Admin: 08/19/18 05:20 Dose: 9 units/kg/hr, 9.144 mls/hr Lisinopril (Zestril) 10 mg PO DAILY [facility] Morphine Sulfate (Morphine) 1 mg IVP Q4 PRN PRN Reason: Pain, moderate (4-7) Last Admin: 08/17/18 21:49 Dose: 1 mg Pantoprazole Sodium (Protonix Ec Tab) 40 mg PO DAILY [facility] Last Admin: 08/18/18 09:21 Dose: 40 mg Rosuvastatin Calcium (Crestor) 5 mg PO QPM [facility] Last Admin: 08/07/18 17:51 Dose: 5 mg Spironolactone (Aldactone) 25 mg PO DAILY [facility] Last Admin: 08/18/18 09:21 Dose: 25 mg Thiamine HCl (Vitamin B1 Tab) 100 mg PO DAILY [facility] Last Admin: 08/18/18 09:21 Dose: 100 mg Zolpidem Tartrate (Ambien) 5 mg PO HS PRN PRN Reason: Insomnia Last Admin: 08/18/18 23:21 Dose: 5 mg - Labs Labs: 08/19/18 06:17 08/19/18 06:07 PT 18.3 SECONDS (9.7-12.2) H 08/19/18 06:17 INR 1.7 08/19/18 06:17 APTT 49.2 SECONDS (21-34) H 08/19/18 06:17 - Constitutional Appears: No Acute Distress - Head Exam Head Exam: ATRAUMATIC, NORMAL INSPECTION, NORMOCEPHALIC - Eye Exam Eye Exam: EOMI, Normal appearance, PERRL, Scleral icterus Pupil Exam: NORMAL ACCOMODATION - ENT Exam ENT Exam: Mucous Membranes Moist - Neck Exam Additional comments: supple, slight JVD - Respiratory Exam Respiratory Exam: Decreased Breath Sounds (b/l lung bases), Clear to Ausculation Bilateral. absent: Rales, Rhonchi, Wheezes - Cardiovascular Exam Cardiovascular Exam: REGULAR RHYTHM, +S1, +S2. absent: Murmur - GI/Abdominal Exam GI & Abdominal Exam: Soft, Normal Bowel Sounds. absent: Tenderness Additional comments: no suprapubic tenderness - Extremities Exam Extremities Exam: Calf Tenderness (slight), Pedal Edema (2+ pitting) - Back Exam Back Exam: CVA tenderness (L). absent: CVA tenderness (R) - Neurological Exam Neurological Exam: Alert, Awake, Oriented x3 - Psychiatric Exam Psychiatric exam: Normal Affect, Normal Mood - Skin Skin Exam: Dry, Warm Assessment and Plan - Assessment and Plan (Free Text) Plan: Mr Love, 38 AAM, former smoker with PMHx non-ischemic cardiomyopathy (EF 13) non-compliant with life-vest, not-ambulating for a month, came in for dyspnea and dyspnic chest pain and was found to have LLE DVT, R main PE, and bi-vent cardiac thrombi. He is s/p TPA and IVC (08/08), pending decision on AICD pending normalizing INR to 1.5. He is downgraded to tele on 08/16. (1) Acute renal failure due to ATN @ Cre 2.8 [worst] - resolved secondary to contrast nephropathy Oliguria/polyuriga resolved. stable lytes and volume status. Continue strict i/o Did not have emergent dialysis due to TPA If pt undergoes cardiac cath, need Salt loading to prevent contrast nephropathy as tolerated by cardiac status (2) Hyponatermia, mild, likely due to hypovolemia and aldactone. - Uosm 531 - Fluid restriction <1.5L daily (3) b-vent cardiac thrombi s/p TPA Pulmonary embolism with DVT - on heparin gtt. Not bridging yet due to AICD planning - Repeat ECHO (08/10) official report still demonstrates moderate to large thrombi involving apex and postero-lateral wall, latter being mobile with possible detached thrombus in aortic outflow tract; Less thrombus burden in LV compared to prior study, no thrombi in RA or upper IVC - Not a candidate for surgical thrombectomy (4) Severe non-ischemic cardiomyopathy, systolic CHF, acute on chronic - improving - AICD placement when INR @ 1.5. Pending Lifevest - lisinopril 10, aldactone 25 daily, lasix to 20 bid PO. On ASA, coreg 6.25bid (5) Acute liver injury with coagulopathy - improving Chronic passive congestion Elevated INR with transaminitis with mild abdominal pain, s/p vit K and FFP - H/H stable, CBD 3mm, Hep panel, HIV neg - patent hepatic veins and portal veins s/r/d/w Dr Purcell
[2018-08-19] MEDS: Pantoprazole 40 mg EC Tab PO SCH (14:17)
--- NOTE | 2018-08-19 23:58 | CP.PCM.PN ---
Subjective - Date & Time of Evaluation Date of Evaluation: 08/19/18 Time of Evaluation: 08:00 - Subjective Subjective: dict Objective - Vital Signs/Intake and Output Vital Signs (last 24 hours): Temp Pulse Resp BP Pulse Ox 97.2 F L 98 H 20 92/53 L 98 08/19/18 20:00 08/19/18 20:00 08/19/18 20:00 08/19/18 20:00 08/19/18 20:00 Intake and Output: 08/19/18 08/20/18 18:59 06:59 Intake Total 364.1 9.1 Output Total 400 Balance -35.9 9.1 - Medications Medications: Current Medications Aspirin (Aspirin Chewable) 81 mg PO DAILY [facility] Last Admin: 08/19/18 11:49 Dose: 81 mg Benzocaine/Menthol (Cepacol Sore Throat) 1 radha MT Q3 PRN PRN Reason: Sore Throat Last Admin: 08/18/18 14:15 Dose: 1 radha Carvedilol (Coreg) 6.25 mg PO BID [facility] Last Admin: 08/19/18 18:41 Dose: 6.25 mg Docusate Sodium (Colace) 100 mg PO TID [facility] Last Admin: 08/19/18 18:40 Dose: 100 mg Folic Acid (Folic Acid) 1 mg PO DAILY [facility] Last Admin: 08/19/18 11:47 Dose: 1 mg Furosemide (Lasix) 20 mg PO BID [facility] Last Admin: 08/19/18 18:41 Dose: 20 mg Guaifenesin/Dextromethorphan (Robitussin Dm) 10 ml PO Q4H PRN PRN Reason: Cough and congestion Last Admin: 08/18/18 14:15 Dose: 10 ml Lisinopril (Zestril) 10 mg PO DAILY [facility] Last Admin: 08/19/18 11:50 Dose: 10 mg Morphine Sulfate (Morphine) 1 mg IVP Q4 PRN PRN Reason: Pain, moderate (4-7) Last Admin: 08/17/18 21:49 Dose: 1 mg Pantoprazole Sodium (Protonix Ec Tab) 40 mg PO DAILY [facility] Last Admin: 08/19/18 14:17 Dose: 40 mg Rosuvastatin Calcium (Crestor) 5 mg PO QPM [facility] Last Admin: 08/07/18 17:51 Dose: 5 mg Spironolactone (Aldactone) 25 mg PO DAILY [facility] Last Admin: 08/19/18 11:50 Dose: 25 mg Thiamine HCl (Vitamin B1 Tab) 100 mg PO DAILY [facility] Last Admin: 08/19/18 11:49 Dose: 100 mg Zolpidem Tartrate (Ambien) 5 mg PO HS PRN PRN Reason: Insomnia Last Admin: 08/19/18 23:17 Dose: 5 mg - Labs Labs: 08/19/18 06:17 08/19/18 06:07 PT 18.3 SECONDS (9.7-12.2) H 08/19/18 06:17 INR 1.7 08/19/18 06:17 APTT 49.2 SECONDS (21-34) H 08/19/18 06:17
--- NOTE | 2018-08-20 00:10 | CP.PCM.PN ---
Subjective - Date & Time of Evaluation Date of Evaluation: 08/19/18 Time of Evaluation: 16:20 - Subjective Subjective: patient seen and evaluated Denies chest pain and dyspnea No new cardiac events noted Objective - Vital Signs/Intake and Output Vital Signs (last 24 hours): Temp Pulse Resp BP Pulse Ox 97.2 F L 98 H 20 92/53 L 98 08/19/18 20:00 08/19/18 20:00 08/19/18 20:00 08/19/18 20:00 08/19/18 20:00 Intake and Output: 08/19/18 08/20/18 18:59 06:59 Intake Total 364.1 9.1 Output Total 400 Balance -35.9 9.1 - Medications Medications: Current Medications Aspirin (Aspirin Chewable) 81 mg PO DAILY [facility] Last Admin: 08/19/18 11:49 Dose: 81 mg Benzocaine/Menthol (Cepacol Sore Throat) 1 radha MT Q3 PRN PRN Reason: Sore Throat Last Admin: 08/18/18 14:15 Dose: 1 radha Carvedilol (Coreg) 6.25 mg PO BID [facility] Last Admin: 08/19/18 18:41 Dose: 6.25 mg Docusate Sodium (Colace) 100 mg PO TID [facility] Last Admin: 08/19/18 18:40 Dose: 100 mg Folic Acid (Folic Acid) 1 mg PO DAILY [facility] Last Admin: 08/19/18 11:47 Dose: 1 mg Furosemide (Lasix) 20 mg PO BID [facility] Last Admin: 08/19/18 18:41 Dose: 20 mg Guaifenesin/Dextromethorphan (Robitussin Dm) 10 ml PO Q4H PRN PRN Reason: Cough and congestion Last Admin: 08/18/18 14:15 Dose: 10 ml Lisinopril (Zestril) 10 mg PO DAILY [facility] Last Admin: 08/19/18 11:50 Dose: 10 mg Morphine Sulfate (Morphine) 1 mg IVP Q4 PRN PRN Reason: Pain, moderate (4-7) Last Admin: 08/17/18 21:49 Dose: 1 mg Pantoprazole Sodium (Protonix Ec Tab) 40 mg PO DAILY [facility] Last Admin: 08/19/18 14:17 Dose: 40 mg Rosuvastatin Calcium (Crestor) 5 mg PO QPM [facility] Last Admin: 08/07/18 17:51 Dose: 5 mg Spironolactone (Aldactone) 25 mg PO DAILY [facility] Last Admin: 08/19/18 11:50 Dose: 25 mg Thiamine HCl (Vitamin B1 Tab) 100 mg PO DAILY [facility] Last Admin: 08/19/18 11:49 Dose: 100 mg Zolpidem Tartrate (Ambien) 5 mg PO HS PRN PRN Reason: Insomnia Last Admin: 08/19/18 23:17 Dose: 5 mg - Labs Labs: 08/19/18 06:17 08/19/18 06:07 PT 18.3 SECONDS (9.7-12.2) H 08/19/18 06:17 INR 1.7 08/19/18 06:17 APTT 49.2 SECONDS (21-34) H 08/19/18 06:17
[2018-08-20 06:27] LABS: INR 1.8; PROTHROMBIN TIME 19.4 SECONDS (9.7-12.2)
--- NOTE | 2018-08-20 06:56 | PN ---
DATE: 08/20/2018 SUBJECTIVE: The patient's INR is still supratherapeutic and the patient cannot have AICD. The patient is less short of breath. No cough. No fever. He is able to move around. PHYSICAL EXAMINATION: VITAL SIGNS: Afebrile. Blood pressure is 94/54, pulse 94, respiratory rate 18, temperature 97.8. LUNGS: Bilateral basal rales. CARDIOVASCULAR SYSTEM: S1 and S2, regular. ABDOMEN: Soft. ASSESSMENT AND PLAN: 1. Acute intractable congestive heart failure. Nonischemic dilated cardiomyopathy. 2. Deep venous thrombosis with pulmonary embolism. PLAN: Arrhythmia vest and possible discharge. Aris Rivas MD
[2018-08-20] MEDS ORDERED: Heparin25000 units/250ml 1/2NS 25,000 UNITS/250 ML BAG IV PRN (10:05)
[2018-08-20] MEDS: Pantoprazole 40 mg EC Tab PO SCH (10:11)
[2018-08-20 12:25] VITALS: O2SAT 100
--- NOTE | 2018-08-20 13:56 | CP.PCM.PN ---
Subjective - Date & Time of Evaluation Date of Evaluation: 08/20/18 Time of Evaluation: 13:53 - Subjective Subjective: PGY3 for Dr Purcell, Nephro Pt had a nose bleed after coughing spell, stopped spontanously. In general, breathing improves, cough persists, leg swelling persists. dysnpneic pain has decrease in frequency, sharp and worst at cough Objective - Vital Signs/Intake and Output Vital Signs (last 24 hours): Temp Pulse Resp BP Pulse Ox 97.6 F 104 H 20 96/63 L 100 08/20/18 12:00 08/20/18 12:00 08/20/18 12:00 08/20/18 10:11 08/20/18 12:00 Intake and Output: 08/20/18 08/20/18 06:59 18:59 Intake Total 9.1 27.3 Balance 9.1 27.3 - Medications Medications: Current Medications Apixaban (Eliquis) 5 mg PO Q12 [facility] Aspirin (Aspirin Chewable) 81 mg PO DAILY [facility] Last Admin: 08/20/18 10:11 Dose: 81 mg Benzocaine/Menthol (Cepacol Sore Throat) 1 radha MT Q3 PRN PRN Reason: Sore Throat Last Admin: 08/18/18 14:15 Dose: 1 radha Carvedilol (Coreg) 6.25 mg PO BID [facility] Last Admin: 08/20/18 10:11 Dose: 6.25 mg Docusate Sodium (Colace) 100 mg PO TID [facility] Last Admin: 08/20/18 10:12 Dose: Not Given Folic Acid (Folic Acid) 1 mg PO DAILY [facility] Last Admin: 08/20/18 10:11 Dose: 1 mg Furosemide (Lasix) 20 mg PO BID [facility] Last Admin: 08/20/18 10:11 Dose: 20 mg Guaifenesin/Dextromethorphan (Robitussin Dm) 10 ml PO Q4H PRN PRN Reason: Cough and congestion Last Admin: 08/18/18 14:15 Dose: 10 ml Lisinopril (Zestril) 10 mg PO DAILY [facility] Last Admin: 08/20/18 10:12 Dose: 10 mg Morphine Sulfate (Morphine) 1 mg IVP Q4 PRN PRN Reason: Pain, moderate (4-7) Last Admin: 08/17/18 21:49 Dose: 1 mg Pantoprazole Sodium (Protonix Ec Tab) 40 mg PO DAILY [facility] Last Admin: 08/20/18 10:11 Dose: 40 mg Rosuvastatin Calcium (Crestor) 5 mg PO QPM [facility] Last Admin: 08/07/18 17:51 Dose: 5 mg Spironolactone (Aldactone) 25 mg PO DAILY [facility] Last Admin: 08/20/18 10:11 Dose: 25 mg Thiamine HCl (Vitamin B1 Tab) 100 mg PO DAILY [facility] Last Admin: 08/20/18 10:10 Dose: 100 mg Zolpidem Tartrate (Ambien) 5 mg PO HS PRN PRN Reason: Insomnia Last Admin: 08/19/18 23:17 Dose: 5 mg - Labs Labs: 08/19/18 06:17 08/19/18 06:07 PT 19.4 SECONDS (9.7-12.2) H 08/20/18 06:21 INR 1.8 08/20/18 06:21 APTT 56.0 SECONDS (21-34) H D 08/20/18 05:51 - Constitutional Appears: No Acute Distress - Head Exam Head Exam: ATRAUMATIC, NORMAL INSPECTION, NORMOCEPHALIC - Eye Exam Eye Exam: EOMI, Normal appearance, PERRL. absent: Scleral icterus Pupil Exam: NORMAL ACCOMODATION - ENT Exam ENT Exam: Mucous Membranes Moist - Neck Exam Additional comments: slight JVD - Respiratory Exam Respiratory Exam: Clear to Ausculation Bilateral. absent: Rales, Rhonchi, Wheezes - Cardiovascular Exam Cardiovascular Exam: REGULAR RHYTHM, +S1, +S2. absent: Murmur - GI/Abdominal Exam GI & Abdominal Exam: Soft, Tenderness ( mild), Normal Bowel Sounds - Extremities Exam Extremities Exam: Pedal Edema, Tenderness. absent: Calf Tenderness - Back Exam Back Exam: absent: CVA tenderness (L), CVA tenderness (R) - Neurological Exam Neurological Exam: Alert, Awake, Oriented x3 - Psychiatric Exam Psychiatric exam: Normal Affect, Normal Mood - Skin Skin Exam: Dry, Warm Assessment and Plan - Assessment and Plan (Free Text) Plan: Mr Love, 38 AAM, former smoker with PMHx non-ischemic cardiomyopathy (EF 13) non-compliant with life-vest, not-ambulating for a month, came in for dyspnea and dyspnic chest pain and was found to have LLE DVT, R main PE, and bi-vent cardiac thrombi. He is s/p TPA and IVC (08/08), pending decision on AICD pending normalizing INR to 1.5. He is downgraded to tele on 08/16. (1) Acute renal failure due to ATN @ Cre 2.8 [worst] - resolved secondary to contrast nephropathy Oliguria/polyuriga resolved. stable lytes and volume status. Continue strict i/o Did not have emergent dialysis due to TPA If pt undergoes cardiac cath, need Salt loading to prevent contrast nephropathy as tolerated by cardiac status (2) b-vent cardiac thrombi s/p TPA Pulmonary embolism with DVT - For anticoagulation, bridge to Eliquis 5 bid per pulm consult. - Repeat ECHO (08/10) official report still demonstrates moderate to large thrombi involving apex and postero-lateral wall, latter being mobile with possible detached thrombus in aortic outflow tract; Less thrombus burden in LV compared to prior study, no thrombi in RA or upper IVC - Not a candidate for surgical thrombectomy (3) Severe non-ischemic cardiomyopathy, systolic CHF, acute on chronic - improving - On Lifevest. Pt is to follow up with Dr Jones for AICD outpatient. - lisinopril 10, aldactone 25 daily, lasix to 20 bid PO. On ASA, coreg 6.25bid - CXR did not show worsening of overload (5) Acute liver injury with coagulopathy - improving Chronic passive congestion Elevated INR with transaminitis with mild abdominal pain, s/p vit K and FFP - H/H stable, CBD 3mm, Hep panel, HIV neg - patent hepatic veins and portal veins (2) Hyponatermia, mild, likely due to hypovolemia and aldactone - resolved. - Uosm 531 - Fluid restriction <1.5L daily s/r/d/w Dr Purcell
--- NOTE | 2018-08-20 13:57 | CP.PCM.PN ---
<Jeromy Duncan - Last Filed: 08/20/18 13:54> Subjective - Date & Time of Evaluation Date of Evaluation: 08/20/18 Time of Evaluation: 10:15 - Subjective Subjective: PGY2 Cardiology Note for Dr. Mccarty Patient seen and examined this morning at bedside. No acute events overnight as per nursing staff. Patient is resting comfortably in bed with Lifevest in place. He reports his breathing is not improved but everything else is feeling better. Denies any chest pain, nausea, vomiting or leg pain. Objective - Vital Signs/Intake and Output Vital Signs (last 24 hours): Temp Pulse Resp BP Pulse Ox 97.6 F 104 H 20 96/63 L 100 08/20/18 12:00 08/20/18 12:00 08/20/18 12:00 08/20/18 10:11 08/20/18 12:00 Intake and Output: 08/20/18 08/20/18 06:59 18:59 Intake Total 9.1 27.3 Balance 9.1 27.3 - Medications Medications: Current Medications Apixaban (Eliquis) 5 mg PO Q12 [facility] Aspirin (Aspirin Chewable) 81 mg PO DAILY [facility] Last Admin: 08/20/18 10:11 Dose: 81 mg Benzocaine/Menthol (Cepacol Sore Throat) 1 radha MT Q3 PRN PRN Reason: Sore Throat Last Admin: 08/18/18 14:15 Dose: 1 radha Carvedilol (Coreg) 6.25 mg PO BID [facility] Last Admin: 08/20/18 10:11 Dose: 6.25 mg Docusate Sodium (Colace) 100 mg PO TID [facility] Last Admin: 08/20/18 10:12 Dose: Not Given Folic Acid (Folic Acid) 1 mg PO DAILY [facility] Last Admin: 08/20/18 10:11 Dose: 1 mg Furosemide (Lasix) 20 mg PO BID [facility] Last Admin: 08/20/18 10:11 Dose: 20 mg Guaifenesin/Dextromethorphan (Robitussin Dm) 10 ml PO Q4H PRN PRN Reason: Cough and congestion Last Admin: 08/18/18 14:15 Dose: 10 ml Lisinopril (Zestril) 10 mg PO DAILY [facility] Last Admin: 08/20/18 10:12 Dose: 10 mg Morphine Sulfate (Morphine) 1 mg IVP Q4 PRN PRN Reason: Pain, moderate (4-7) Last Admin: 08/17/18 21:49 Dose: 1 mg Pantoprazole Sodium (Protonix Ec Tab) 40 mg PO DAILY [facility] Last Admin: 08/20/18 10:11 Dose: 40 mg Rosuvastatin Calcium (Crestor) 5 mg PO QPM [facility] Last Admin: 08/07/18 17:51 Dose: 5 mg Spironolactone (Aldactone) 25 mg PO DAILY [facility] Last Admin: 08/20/18 10:11 Dose: 25 mg Thiamine HCl (Vitamin B1 Tab) 100 mg PO DAILY [facility] Last Admin: 08/20/18 10:10 Dose: 100 mg Zolpidem Tartrate (Ambien) 5 mg PO HS PRN PRN Reason: Insomnia Last Admin: 08/19/18 23:17 Dose: 5 mg - Labs Labs: 08/19/18 06:17 08/19/18 06:07 PT 19.4 SECONDS (9.7-12.2) H 08/20/18 06:21 INR 1.8 08/20/18 06:21 APTT 56.0 SECONDS (21-34) H D 08/20/18 05:51 - Additional Findings Additional findings: - Constitutional Appears: Non-toxic, No Acute Distress - Head Exam Head Exam: ATRAUMATIC, NORMAL INSPECTION, NORMOCEPHALIC - Eye Exam Eye Exam: EOMI, Normal appearance - ENT Exam ENT Exam: Mucous Membranes Moist - Respiratory Exam Respiratory Exam: Decreased Breath Sounds, Clear to Ausculation Bilateral. absent: Accessory Muscle Use, Rales, Rhonchi, Wheezes, Respiratory Distress - Cardiovascular Exam Cardiovascular Exam: REGULAR RHYTHM, RRR, +S1, +S2. absent: JVD - GI/Abdominal Exam GI & Abdominal Exam: Soft, Normal Bowel Sounds. absent: Tenderness - Extremities Exam Extremities Exam: Calf Tenderness (left calf ). absent: Pedal Edema - Neurological Exam Neurological Exam: Alert, Awake, Oriented x3 - Psychiatric Exam Psychiatric exam: Flat Affect - Skin Skin Exam: absent: Normal Color (ecchymosis on the right arm) Assessment and Plan - Assessment and Plan (Free Text) Plan: Systolic Heart Failure - bi-ventricular failure Nonischemic Cardiomyopathy Paroxysmal Vtach EP Public Health Technician consulted, Dr. Jones, * Consult for AICD placement evaluation * He has persistently decreased LVEF (first seen on ECHO 08/19/17, EF <15%) * Patient experienced multiple events of non-sustained Vtach throughout the night of 08/08 to morning of 08/09. * Patient has not been a good candidate for heart transplant or life vest due to non compliance in the past. AICD placement cancelled again due to elevated INR * given Vitamin K+ 10mg IV once * transfused 1 unit of FFP * will re-evaluate tomorrow morning * AICD placement will hopefully be rescheduled tomorrow with Dr. Jones, if INR normalizes * patient will be transferred to [facility] for AICD placement, then will return to [facility] after completion of procedure. Medications: * Aspirin 81 mg PO daily * Heparin drip * Coreg 6.25 mg BID * Crestor 5 mg PO daily - on hold due to transaminitis * Lasix 20mg IVP BID Pulmonary Embolism Thrombus in Right Atrium (resolved) Thrombus in Left Ventricle DVT - left leg Vascular Surgery consulted, Dr. Alvares * s/p IVC filter placed on 08/08/2018 CTA Chest: Filling defect arising within distal R main pulmonary artery inv olving distal pulmonary artery branches. No evidence of saddle embolus. ECHO on 08/06 showed thrombus in Right Atrium and LV. Likely two separate processes. * tPa was given on 08/07. Repeat ECHO on 08/08 showed persistent clot attached to LV wall, but resolution of thrombus in right ventricle. * Patient will need bubble study to r/o shunt once clots are resolved and he is more stable. Lower Extremity Doppler * Left: acute DVT of the left distal popliteal, posterior tibial and peroneal veins, with moderate reduction of the venous return. Pulsatile venous flow noted of the left side. * Right: No evidence of deep or superficial vein thrombosis of the right lower extremity. Pulsatile venous flow noted of the right side. Patient will need to be continued on anti-coagulation therapy upon discharge. * Warfarin vs. Xarelto Vs. Eliquis; concern with Hx of noncompliance * Discussed with patient the importance of establishing care with a PMD for con tinued routine maintenance upon discharge. He reports understanding and agreement. He is to follow up in the Clinic in the [facility] upon discharge. 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 Continue to monitor Hepatic Insufficiency Improving continue to monitor Hold statin until normalization of transaminitis DISPO: Patient has received LifeVest. He is to continue to wear the LifeVest until he is able to AICD place. He is to follow up with Dr. Jones as an outpatient for procedure. He will need to be on anticoagulation upon discharge for DVT/PE. Patient is medically optimized from cardiac standpoint for discharge to [facility]. Case discussed with Dr. Lul Centenon PGY2 <Alfie Mccarty - Last Filed: 08/20/18 23:37> Objective - Vital Signs/Intake and Output Vital Signs (last 24 hours): Temp Pulse Resp BP Pulse Ox 97.6 F 85 21 91/53 L 100 08/20/18 20:00 08/20/18 20:00 08/20/18 20:00 08/20/18 20:00 08/20/18 20:00 Intake and Output: 08/20/18 08/21/18 18:59 06:59 Intake Total 27.3 Balance 27.3 - Labs Labs: 08/19/18 06:17 08/19/18 06:07 PT 19.4 SECONDS (9.7-12.2) H 08/20/18 06:21 INR 1.8 08/20/18 06:21 APTT 56.0 SECONDS (21-34) H D 08/20/18 05:51 Assessment and Plan - Assessment and Plan (Free Text) Plan: Patient seen and evaluated personally by me. Patient will f/u with the clinic in [facility] Will f/u Dr. Jones for LifeVest and AICD placement
--- NOTE | 2018-08-20 15:08 | PCM.HF ---
Heart Failure Core Measure DONNA Inhibitor Prescribed: Yes Beta-Bradley Prescribed: Carvedilol AnticoagulationTherapy for Atrial Fibrillation/Atrialflutter: Yes
--- NOTE | 2018-08-20 15:37 | RAD ---
Date of service: 08/20/2018 HISTORY: dyspnea COMPARISON: 08/19/2018 chest x-ray. Angio chest PE protocol 08/06/2018 noted. TECHNIQUE: 1 view obtained. FINDINGS: LUNGS: Oval opacity right mid/lower lung zone noted conspicuity increased since prior study-interval infiltrate here suspect. The prior CT reference left Radha hemidiaphragmatic ground-glass coalescent infiltrate is not clearly appreciated-this could easily however be obscured on this radiograph. PLEURA: No significant pleural effusion identified, no pneumothorax apparent. CARDIOVASCULAR: No aortic atherosclerotic calcification present. Moderate cardiomegaly-similar no pulmonary vascular congestion. OSSEOUS STRUCTURES: No significant abnormalities. VISUALIZED UPPER ABDOMEN: Normal. OTHER FINDINGS: None. IMPRESSION: Interval increase conspicuity of a right lower lobe infiltrate. Additional findings as above.
[2018-08-20] MEDS: Benzocaine/Menthol (Cepacol) Lozenge MT PRN (17:11)
[2018-08-20 20:49] VITALS: BP 91/53; PULSE 85; RESP 21; TEMP 97.6
--- NOTE | 2018-08-21 00:28 | CP.PCM.DIS ---
Provider - Provider Date of Admission: 08/06/18 14:39 Attending physician: Aris Rivas MD Consults: 08/06/18 15:15 Cardiology Consult Routine Comment: chronic CHF Consulting Provider: Alfie Mccarty Consulting Physician: Alfie Mccarty Reason for Consult: Chronic CHF 08/06/18 18:04 Physician Consult Routine Comment: Consulting Provider: Burke Alvares Jr. Consulting Physician: Burke Alvares Jr. Reason for Consult: ivc filter eval, acute PE, DVT, HFrEF 08/06/18 21:38 Inpatient CRIBBER Core Measures Referral Routine Comment: Physician Instructions: Reason For Exam: DX CHF 08/06/18 21:49 Social Work Referral ONCE Comment: dennise score 11 Physician Instructions: Reason For Exam: dennise score 11 08/07/18 13:23 Nephrology Consult Routine Comment: Consulting Provider: Moses Purcell Consulting Physician: Moses Purcell Reason for Consult: susu 08/08/18 16:09 Hematology Oncology Consult Routine Comment: Consulting Provider: Sandra Antony Consulting Physician: Sandra Antony Reason for Consult: hypercoaguable workup; LLE DVT, PE, LV thrombus 08/09/18 09:09 Cardiology Consult Routine Comment: Consulting Provider: Aashish Jones Consulting Physician: Aashish Jones Reason for Consult: vtach, possible life vest 08/14/18 09:11 Gastroenterology Consult Routine Comment: Consulting Provider: Brice Lr Consulting Physician: Brice Lr Reason for Consult: increasingly elevated bili 08/20/18 10:05 Case Management Referral Routine Comment: Physician Instructions: Reason For Exam: Acute rehab Reason for Referral: Discharge Planning 08/20/18 12:24 Physician Consult Routine Comment: Consulting Provider: Rodo Phipps Consulting Physician: Rodo Phipps Reason for Consult: Eliquis dosing, PE Time Spent in preparation of Discharge (in minutes): 35 Hospital Course - Lab Results Lab Results: Micro Results 08/16/18 18:00 Naris MRSA Culture (Admit) - Final MRSA NOT DETECTED 08/07/18 14:37 Blood Blood Culture - Final NO GROWTH AFTER 5 DAYS 08/07/18 14:37 Blood Gram Stain - Final TEST NOT PERFORMED 08/07/18 14:37 Blood Blood Culture - Final NO GROWTH AFTER 5 DAYS 08/07/18 14:37 Blood Gram Stain - Final TEST NOT PERFORMED 08/09/18 11:40 Urine,Catheterized Urine Culture - Final No Growth (<1,000 CFU/ML) 08/06/18 21:45 Nose MRSA Culture (Admit) - Final MRSA NOT DETECTED Most Recent Lab Values WBC 10.4 K/uL (4.8-10.8) 08/19/18 06:17 RBC 4.50 Mil/uL (4.40-5.90) 08/19/18 06:17 Hgb 11.5 g/dL (12.0-18.0) L 08/19/18 06:17 Hct 36.3 % (35.0-51.0) 08/19/18 06:17 MCV 80.6 fL (80.0-94.0) 08/19/18 06:17 MCH 25.5 pg (27.0-31.0) L 08/19/18 06:17 MCHC 31.6 g/dL (33.0-37.0) L 08/19/18 06:17 RDW 19.8 % (11.5-14.5) H 08/19/18 06:17 Plt Count 310 K/uL (130-400) 08/19/18 06:17 MPV 8.8 fL (7.2-11.7) 08/19/18 06:17 Neut % (Auto) 66.6 % (50.0-75.0) 08/19/18 06:17 Lymph % (Auto) 22.2 % (20.0-40.0) 08/19/18 06:17 [place] % (Auto) 8.8 % (0.0-10.0) 08/19/18 06:17 Eos % (Auto) 1.4 % (0.0-4.0) 08/19/18 06:17 Baso % (Auto) 1.0 % (0.0-2.0) 08/19/18 06:17 Neut # (Auto) 6.9 K/uL (1.8-7.0) 08/19/18 06:17 Lymph # (Auto) 2.3 K/uL (1.0-4.3) 08/19/18 06:17 [place]ett # (Auto) 0.9 K/uL (0.0-0.8) H 08/19/18 06:17 Eos # (Auto) 0.1 K/uL (0.0-0.7) 08/19/18 06:17 Baso # (Auto) 0.1 K/uL (0.0-0.2) 08/19/18 06:17 Haptoglobin < 20.0 mg/dL (30.0-200.0) L 08/15/18 12:52 PT 19.4 SECONDS (9.7-12.2) H 08/20/18 06:21 INR 1.8 08/20/18 06:21 APTT 56.0 SECONDS (21-34) H D 08/20/18 05:51 D-Dimer, Quantitative 5431 ng/mlDDU (0-243) H 08/06/18 13:35 Protein C Antigen 33 % (70-140) L 08/09/18 07:18 Protein C Activity 24 % (70-180) L 08/09/18 07:18 Protein S Activity 38 % (70-150) L 08/09/18 07:18 Protein S Antigen 85 % normal (70-140) 08/09/18 07:18 Antithrombin III Ag 36 % (80-120) L 08/09/18 07:18 Antithrombin III Activ 43 % activity (80-120) L 08/09/18 07:18 Factor V see note 08/09/18 07:18 Factor V Activity 19 % (65-150) L 08/09/18 07:18 Puncture Site Rra 08/09/18 11:11 pCO2 36 mm/Hg (35-45) 08/09/18 11:11 pO2 103 mm/Hg (80-100) H 08/09/18 11:11 HCO3 29.2 mmol/L (21-28) H 08/09/18 11:11 ABG pH 7.51 (7.35-7.45) H 08/09/18 11:11 ABG Total CO2 29.8 mmol/L (22-28) H 08/09/18 11:11 ABG O2 Saturation 99.4 % (95-98) H 08/09/18 11:11 ABG Base Excess 5.5 mmol/L (-2.0-3.0) H 08/09/18 11:11 ABG Hemoglobin 11.6 g/dL (11.7-17.4) L 08/09/18 11:11 ABG Carboxyhemoglobin 2.0 % (0.5-1.5) H 08/09/18 11:11 POC ABG HHb (Measured) 0.6 % (0.0-5.0) 08/09/18 11:11 ABG Methemoglobin 0.8 % (0.0-3.0) 08/09/18 11:11 Reyes Test Po 08/09/18 11:11 ABG Potassium 6.8 mmol/L (3.6-5.2) H* 08/07/18 09:36 VBG pH 7.24 (7.32-7.43) L 08/07/18 12:15 VBG pCO2 26 mmHg (40-60) L 08/07/18 12:15 VBG HCO3 12.7 mmol/L 08/07/18 12:15 VBG Total CO2 11.9 mmol/L (22-28) L 08/07/18 12:15 VBG O2 Sat (Calc) 74.9 % (40-65) H 08/07/18 12:15 VBG Base Excess -14.6 mmol/L (0.0-2.0) L 08/07/18 12:15 VBG Potassium 6.6 mmol/L (3.6-5.2) H* 08/07/18 12:15 A-a O2 Difference 2.0 mm/Hg 08/09/18 11:11 Respiratory Index 0 08/09/18 11:11 Hgb O2 Saturation 96.6 % (95.0-98.0) 08/09/18 11:11 Sodium 131.0 mmol/l (132-148) L 08/07/18 12:15 Chloride 98.0 mmol/L (98-107) 08/07/18 12:15 Glucose 126 mg/dl (75-110) H 08/07/18 12:15 Lactate 12.8 mmol/L (0.7-2.1) H* 08/07/18 12:15 Liter Flow 2.0 08/07/18 09:36 FiO2 21.0 % 08/09/18 11:11 Crit Value Called To Veronica inspector agricultural commodities 08/07/18 12:15 Crit Value Called By Claudia 08/07/18 12:15 Crit Value Read Back Y 08/07/18 12:15 Blood Gas Notified Time 1218 08/07/18 12:15 Sodium 133 mmol/L (132-148) 08/19/18 06:07 Potassium 4.2 mmol/L (3.6-5.2) 08/19/18 06:07 Chloride 99 mmol/L (98-107) 08/19/18 06:07 Carbon Dioxide 22 mmol/L (22-30) 08/19/18 06:07 Anion Gap 17 (10-20) 08/19/18 06:07 BUN 22 mg/dL (9-20) H 08/19/18 06:07 Creatinine 1.0 mg/dL (0.8-1.5) 08/19/18 06:07 Est GFR ( Amer) > 60 08/19/18 06:07 Est GFR (Non-Af Amer) > 60 08/19/18 06:07 POC Glucose (mg/dL) 120 mg/dL (65-110) H 08/07/18 10:01 Random Glucose 111 mg/dL (75-110) H D 08/19/18 06:07 Calcium 8.7 mg/dl (8.6-10.4) 08/19/18 06:07 Phosphorus 3.1 mg/dL (2.5-4.5) 08/18/18 05:56 Magnesium 2.2 mg/dL (1.6-2.3) 08/18/18 05:56 Total Bilirubin 4.1 mg/dL (0.2-1.3) H 08/19/18 06:07 Direct Bilirubin 3.5 mg/dL (0.0-0.4) H 08/14/18 04:53 AST 118 U/L (17-59) H 08/19/18 06:07 ALT 109 U/L (21-72) H 08/19/18 06:07 Alkaline Phosphatase 145 U/L (38-126) H 08/19/18 06:07 Lactate Dehydrogenase 1124 U/L (313-618) H 08/14/18 04:53 Total Creatine Kinase 816 U/L (55-170) H 08/07/18 12:16 Troponin I 0.4120 ng/mL (0.00-0.120) H* 08/07/18 18:59 NT-Pro-B Natriuret Pep 6600 pg/mL (0-450) H 08/06/18 13:35 Total Protein 6.6 g/dL (6.3-8.3) 08/19/18 06:07 Albumin 3.6 g/dL (3.5-5.0) 08/19/18 06:07 Globulin 3.1 gm/dL (2.2-3.9) 08/19/18 06:07 Albumin/Globulin Ratio 1.2 (1.0-2.1) 08/19/18 06:07 Arterial Blood Potassium 6.8 mmol/L (3.6-5.2) H* 08/07/18 09:36 Venous Blood Potassium 6.6 mmol/L (3.6-5.2) H* 08/07/18 12:15 Urine Color [place] (YELLOW) 08/09/18 11:40 Urine Clarity Clear (Clear) 08/09/18 11:40 Urine pH 6.0 (5.0-8.0) 08/09/18 11:40 Ur Specific [place] 1.017 (1.003-1.030) 08/09/18 11:40 Urine Protein Negative mg/dL (NEGATIVE) 08/09/18 11:40 Urine Glucose (UA) Normal mg/dL (Normal) 08/09/18 11:40 Urine Ketones Negative mg/dL (NEGATIVE) 08/09/18 11:40 Urine Blood 1+ (NEGATIVE) H 08/09/18 11:40 Urine Nitrate Negative (NEGATIVE) 08/09/18 11:40 Urine Bilirubin Negative (NEGATIVE) 08/09/18 11:40 Urine Urobilinogen 4.0 mg/dL (0.2-1.0) 08/09/18 11:40 Ur Leukocyte Esterase Trace Martinez/uL (Negative) 08/09/18 11:40 Urine WBC (Auto) 4 /hpf (0-5) 08/09/18 11:40 Urine RBC (Auto) 7 /hpf (0-3) H 08/09/18 11:40 Urine Osmolality 531 mosm/kg (300-1000) 08/16/18 14:03 Ur Random Sodium < 5 mmol/L 08/07/18 14:37 Ur Random Potassium 80.4 mmol/L 08/07/18 14:37 Urine Opiates Screen Negative (NEGATIVE) 08/06/18 13:57 Urine Methadone Screen Negative (NEGATIVE) 08/06/18 13:57 Ur Barbiturates Screen Negative (NEGATIVE) 08/06/18 13:57 Ur Phencyclidine Scrn Negative (NEGATIVE) 08/06/18 13:57 Ur Amphetamines Screen Negative (NEGATIVE) 08/06/18 13:57 U Benzodiazepines Scrn Negative (NEGATIVE) 08/06/18 13:57 U Oth Cocaine Metabols Negative (NEGATIVE) 08/06/18 13:57 U Cannabinoids Screen Negative (NEGATIVE) 08/06/18 13:57 Alcohol, Quantitative < 10 mg/dl (0-10) 08/06/18 13:35 Beta-2 GPI IgG Ab <9 SGU (<=20) 08/08/18 17:35 Beta-2 GPI IgM Ab <9 SMU (<=20) 08/08/18 17:35 Beta-2-GPI IgA Ab <9 LIAT (<=20) 08/08/18 17:35 Phosphatidylserine IgG <10 U/mL (<10) 08/08/18 17:35 Phosphatidylserine IgA <20 U/mL (<20) 08/08/18 17:35 Phosphatidylserine IgM <25 U/mL (<25) 08/08/18 17:35 Anti-Phospholipid Intrp see note 08/08/18 17:35 Anti-Cardiolipin IgG Ab <14 GPL (<=14) 08/09/18 07:18 Anti-Cardiolipin IgA Ab <11 APL (<=11) 08/09/18 07:18 Anti-Cardiolipin IgM Ab <12 MPL (<=12) 08/09/18 07:18 Hepatitis A IgM Ab Negative (NEGATIVE) 08/14/18 04:53 Hep Bs Antigen Negative (NEGATIVE) 08/14/18 04:53 Hep B Core IgM Ab Negative (NEGATIVE) 08/14/18 04:53 Hepatitis C Antibody Negative (NEGATIVE) 08/14/18 04:53 HIV 1&2 Antibody Screen Negative (NEGATIVE) 08/14/18 04:53 Blood Type A POSITIVE 08/15/18 12:52 Blood Type Confirm A POSITIVE 08/15/18 12:52 Antibody Screen Negative 08/15/18 12:52 Discharge Exam - Head Exam Head Exam: ATRAUMATIC, NORMAL INSPECTION, NORMOCEPHALIC Discharge Plan - Follow Up Plan Condition: GOOD Disposition: REHAB FACILITY/REHAB UNIT Instructions: Heart Failure, Adult (DC), Medical Devices for Congestive Heart Failure (CHF) Additional Instructions: As tolerated Referrals: Aashish Jones MD [Staff Provider] - 1 Week
== END 2018-08-20 20:51 | DRG 539 ==
LOC: C.ER 12:14 → OBSVTOIN 14:39 → C.9E 14:39 → C.6T 15:45 → C.9E 17:37 → C.9I 18:07
PROVIDERS: ADMIT Internal Medicine; ATTEND Internal Medicine
PROC: 06H03DZ Insertion of Intraluminal Device into Inferior Vena Cava, Percutaneous Approach (ICD-10-PCS; principal; 2018-08-08 13:30)
PROC: 30233K1 Transfusion of Nonautologous Frozen Plasma into Peripheral Vein, Percutaneous Approach (ICD-10-PCS; 2018-08-15)
DX: I26.99 Other pulmonary embolism without acute cor pulmonale (principal); I82.431 Acute embolism and thrombosis of right popliteal vein; N17.0 Acute kidney failure with tubular necrosis; I50.43 Acute on chronic combined systolic (congestive) and diastolic (congestive) heart failure; E11.22 Type 2 diabetes mellitus with diabetic chronic kidney disease; E87.5 Hyperkalemia; E87.1 Hypo-osmolality and hyponatremia; I13.0 Hypertensive heart and chronic kidney disease with heart failure and stage 1 through stage 4 chronic kidney disease, or unspecified chronic kidney disease; N18.9 Chronic kidney disease, unspecified; E87.2 Acidosis; R18.8 Other ascites; R57.9 Shock, unspecified; I47.2 Ventricular tachycardia; F10.21 Alcohol dependence, in remission; D72.828 Other elevated white blood cell count; I25.5 Ischemic cardiomyopathy; Z91.11 Patient's noncompliance with dietary regimen; Z91.14 Patient's other noncompliance with medication regimen; Z95.810 Presence of automatic (implantable) cardiac defibrillator; K76.0 Fatty (change of) liver, not elsewhere classified; K76.1 Chronic passive congestion of liver

== ENCOUNTER 2018-08-26 21:48 | Inpatient (IN) | payer MEDICAID ==
[2018-08-26 21:49] VITALS: BMI 30.1
[2018-08-26 22:43] LABS: BASO # 0.1 K/uL (0.0-0.2); BASO % 1.4 % (0.0-2.0); EOS # 0.2 K/uL (0.0-0.7); HEMOGLOBIN 11.7 g/dL (12.0-18.0); LYMPH # 1.6 K/uL (1.0-4.3); LYMPH % 20.2 % (20.0-40.0); MEAN CELL VOLUME 80.7 fL (80.0-94.0); MEAN CORPUSCULAR HEMOGLOBIN 25.6 pg (27.0-31.0); MEAN CORPUSCULAR HGB CONC 31.8 g/dL (33.0-37.0); MONO # 0.6 K/uL (0.0-0.8); MONO % 7.6 % (0.0-10.0); NEUT # 5.3 K/uL (1.8-7.0); NEUT % 67.8 % (50.0-75.0); NRBC % 0.3 % (0.0-2.0); RBC 4.55 Mil/uL (4.40-5.90); RED CELL DISTRIBUTION WIDTH 20.7 % (11.5-14.5); WHITE BLOOD COUNT 7.8 K/uL (4.8-10.8)
[2018-08-26 22:52] LABS: PARTIAL THROMBOPLASTIN TIME 31.5 SECONDS (21-34)
[2018-08-26 23:06] LABS: B-TYPE NATRIURETIC PEPTIDE 8170 pg/mL (0-450)
[2018-08-26 23:09] LABS: INR 3.9; PROTHROMBIN TIME 43.1 SECONDS (9.7-12.2)
[2018-08-26 23:12] LABS: ALBUMIN 3.6 g/dL (3.5-5.0); ALT/SGPT 80 U/L (21-72); AST/SGOT 73 U/L (17-59); BLOOD UREA NITROGEN 19 mg/dL (9-20); CALCIUM 9.1 mg/dl (8.6-10.4); GFR NON-AFRICAN AMERICAN > 60; LIPASE 147 U/L (23-300)
--- NOTE | 2018-08-26 23:15 | C.PDOC ---
History Of Present Illness 38 year old male with PMHx of heart failure EF (13.59%, echo 01/2018), non ischemic cardiomyopathy,lifevest, HTN, non-compliance with medications presents to the ED c/o abdominal distention, bloating for the past 3 days, that worsened in the last 3 hours. Patient reports feeling pressure in his abdomen. Patient also states 2 days ago he has 2 episodes of vomit. Patient was recently admitted for LLE DVT and PE, patient was started on Eliquis. Patient denies fever, chills, nausea, diarrhea, CP, palpitations, rash, weakness, numbness, history of liver disease. Time Seen by Provider: 08/26/18 21:59 Chief Complaint (Nursing): Shortness Of Breath History Per: Patient History/Exam Limitations: no limitations Onset/Duration Of Symptoms: Days (3) Current Symptoms Are (Timing): Still Present Initiating Event: Upper Respiratory Illness Quality: Tightness Current Respiratory Medications: See Home Med List Associated Symptoms: Ankle/Leg Swelling Reports Recently: Hospitalized (08/06/2018) Recent travel outside of the [place]: No Additional History Per: Patient Past Medical History Reviewed: Historical Data, Nursing Documentation, Vital Signs Vital Signs: Last Vital Signs Temp 98.0 F 08/26/18 22:02 Pulse 121 H 08/26/18 22:02 Resp 20 08/26/18 22:02 BP 100/80 08/26/18 22:02 Pulse Ox 97 08/26/18 22:02 Primary Care Provider: Aris Rivas - Medical History PMH: CHF, Gall Bladder Disease (choleystitis), HTN, Hyperlipidemia Denies: Chronic Kidney Disease Surgical History: Pacemaker - [facility] Procedures DETOXIFICATION SERVICES FOR SUBSTANCE ABUSE TREATMENT (08/19/17) INSERTION OF INTRALUM DEV INTO INF VENA CAVA, PERC APPROACH (08/06/18) TRANSFUSE NONAUT FROZEN PLASMA IN PERIPH VEIN, PERC (08/06/18) Family History: States: Unknown Family Hx - Social History Hx Alcohol Use: Yes Hx Substance Use: No - Immunization History Hx Tetanus Toxoid Vaccination: No Hx Influenza Vaccination: No Hx Pneumococcal Vaccination: No Review Of Systems Constitutional: Negative for: Fever, Chills Cardiovascular: Negative for: Chest Pain, Palpitations Respiratory: Negative for: Shortness of Breath Gastrointestinal: Positive for: Abdominal Pain. Negative for: Nausea, Vomiting, Diarrhea Musculoskeletal: Negative for: Back Pain Skin: Negative for: Rash Neurological: Negative for: Weakness, Numbness, Headache, Dizziness Physical Exam - Physical Exam Appears: Non-toxic, No Acute Distress (NARD) Skin: Normal Color, Warm, Dry Head: Atraumatic, Normacephalic Eye(s): bilateral: PERRL, EOMI, Scleral Icterus Oral Mucosa: Moist Neck: Normal ROM, Supple Chest: Symmetrical Cardiovascular: Rhythm Regular (tachycardic) Respiratory: Normal Breath Sounds, No Rales, No Rhonchi, No Wheezing Gastrointestinal/Abdominal: Soft, Tenderness (diffuse), Distention, No Guarding, No Rebound Extremity: Normal ROM, No Tenderness, Pedal Edema (bilateral pitting with skin changes), Capillary Refill <2 Sec (< 2 seconds) Pulses: Left Dorsalis Pedis: Normal, Right Dorsalis Pedis: Normal Neurological/Psych: Oriented x3, Normal Speech, Normal Cognition Gait: Steady ED Course And Treatment - Laboratory Results Result Diagrams: 09/01/18 07:47 09/01/18 07:47 Lab Results: PT 43.1 SECONDS (9.7-12.2) H 08/26/18 22:40 INR 3.9 H* 08/26/18 22:40 APTT 31.5 SECONDS (21-34) 08/26/18 22:40 NT-Pro-B Natriuret Pep 8170 pg/mL (0-450) H 08/26/18 22:40 Total Bilirubin 4.4 mg/dL (0.2-1.3) H 08/26/18 22:40 AST 73 U/L (17-59) H D 08/26/18 22:40 ALT 80 U/L (21-72) H D 08/26/18 22:40 Alkaline Phosphatase 120 U/L (38-126) 08/26/18 22:40 Total Protein 7.2 g/dL (6.3-8.3) 08/26/18 22:40 Albumin 3.6 g/dL (3.5-5.0) 08/26/18 22:40 Globulin 3.6 gm/dL (2.2-3.9) 08/26/18 22:40 Albumin/Globulin Ratio 1.0 (1.0-2.1) 08/26/18 22:40 Lipase 147 U/L (23-300) 08/26/18 22:40 ECG: Interpreted By Me, Viewed By Me ECG Rhythm: Sinus Tachycardia Rate From EC (BPM) O2 Sat by Pulse Oximetry: 97 (ON RA) Pulse Ox Interpretation: Normal - CT Scan/US CT abd/pelvis Other Rad Studies (CT/US): Read By Radiologist, Radiology Report Reviewed CT/US Interpretation: CT SCAN OF THE ABDOMEN AND PELVIS WITH CONTRAST. CLINICAL HISTORY: Abdominal pain and distention. TECHNIQUE: Multiple axial and coronal CT images were obtained through the abdomen and pelvis after administration of intravenous contrast material. COMPARISON: 08/14/2018 09:10 PM EDT: SD\US\IN: ABDOMEN COMPLETE DUPLEX. COMMENTS: Moderate generalized anasarca. Moderate cardiomegaly. Dilated suprahepatic IVC suggestive of dysfunction of the right cardiac cavities. Minimal right pleural effusion with passive atelectatic airspace disease of the right lower lobe. Hepatomegaly. Mild diffuse thickening of the lower lumbar gallbladder. Mild ascites. Mild mesenteric congestion/edema. Unremarkable IVC filter. 3 mm right renal nonobstructing stone. There is no intra or extrahepatic biliary ductal dilatation. The spleen is normal. The pancreas is of normal contour and attenuation characteristics. There is no evidence of adrenal mass. Both kidneys demonstrate prompt and equal nephrograms. The kidneys are normal in size, shape and configuration. There is no evidence of renal or ureteral mass. No left renal or ureteral calculi are identified. There is no hydroureter or hydronephrosis. No evidence for appendicitis. There is no bowel wall thickening. No evidence for small or large bowel obstruction. There is no evidence of intrinsic or extrinsic bladder mass. Images of the lung bases show no evidence of pleural or parenchymal mass. There are no pleural effusions. The bony structures are free of lytic or blastic le sions. IMPRESSION: Moderate generalized anasarca. Moderate cardiomegaly. Dilated suprahepatic IVC suggestive of dysfunction of the right cardiac cavities. Minimal right pleural effusion with passive atelectatic airspace disease of the right lower lobe. Hepatomegaly. Mild diffuse thickening of the lower lumbar gallbladder. Mild ascites. Mild mesenteric congestion/edema. Unremarkable IVC filter. 3 mm right renal nonobstructing stone. Thank you for your kind referral of this patient. . Electronically signed on August 27, 2018 12:56:05 AM EDT by: Chyna Brandon M.D., Certified by KEVIN, MSK, Neuroradiology Medical Decision Making Medical Decision Making: Plan: * EKG * CXR * CT abd/pelvis * Labs * UA Old records reviewed Disposition Counseled Patient/Family Regarding: Studies Performed, Diagnosis - Disposition Disposition: HOSPITALIZED Disposition Time: 01:00 Condition: STABLE - Clinical Impression Clinical Impression: Congestive heart failure, Supratherapeutic INR, Hyponatremia, Elevated bilirubin, Abdominal pain - Scribe Statement The provider has reviewed the documentation as recorded by the Scribe Dilan Bush All medical record entries made by the Scribe were at my direction and personally dictated by me. I have reviewed the chart and agree that the record accurately reflects my personal performance of the history, physical exam, medical decision making, and the department course for this patient. I have also personally directed, reviewed, and agree with the discharge instructions and disposition.
[2018-08-26] MEDS ORDERED: Iodixanol 320 MG/ML 100 ML BOTTLE IV ONE (23:34)
[2018-08-27] MEDS ORDERED: Benzocaine/Menthol (Cepacol) Lozenge MT PRN (03:58)
[2018-08-27] MEDS: metroNIDAZOLE IV 500 mg/100 ml 500 MG/100 ML BAG IVPB SCH ×3 (04:20→19:29)
[2018-08-27 07:01] LABS: SQUAMOUS EPITHIAL 1 /hpf (0-5); URINE BILIRUBIN NEGATIVE (NEGATIVE); URINE BLOOD NEGATIVE (NEGATIVE); URINE CLARITY Clear (Clear); URINE COLOR Amber (YELLOW); URINE GLUCOSE (UA) NORMAL (Normal); URINE LEUKOCYTE ESTERASE NEG Leu/uL (Negative); URINE PROTEIN NEGATIVE (NEGATIVE)
[2018-08-27 07:36] LABS: CK-MB 0.78 ng/mL (0.0-3.38)
[2018-08-27] MEDS ORDERED: Albuterol 0.083% Inhal Sol (2.5 mg/3 mL) UD ONE ×2 (09:12→13:24)
[2018-08-27] MEDS: Albuterol 0.083% Inhal Sol (2.5 mg/3 mL) UD INH SCH ×3 (09:15→20:07)
--- NOTE | 2018-08-27 09:29 | RAD ---
Date of service: 08/26/2018 HISTORY: SOB COMPARISON: Chest x-ray 08/20/2018 TECHNIQUE: Chest one view . FINDINGS: Multiple devices overlie the chest, limiting evaluation. LUNGS: Focal airspace opacity noted right lower lung field. PLEURA: No pleural effusion is identified. CARDIOVASCULAR: Heart size is enlarged. No atherosclerotic calcification present. OSSEOUS STRUCTURES: No acute fracture identified. VISUALIZED UPPER ABDOMEN: Unremarkable. OTHER FINDINGS: None. IMPRESSION: Focal airspace opacity right lower lung field, likely infectious/inflammatory process; atelectasis could also be considered. This appears unchanged compared to prior exam. Stable cardiomegaly.
--- NOTE | 2018-08-27 11:21 | CT ---
Date of service: 08/26/2018 PROCEDURE: CT Abdomen and Pelvis with contrast HISTORY: abdominal distended COMPARISON: 08/07/2018 TECHNIQUE: CT scan of the abdomen and pelvis was performed after administration of intravenous contrast. Oral contrast was not administered. Coronal and sagittal reformatted images were obtained. Contrast dose: Radiation dose: Total exam DLP = 1218.61 mGy-cm. This CT exam was performed using one or more of the following dose reduction techniques: Automated exposure control, adjustment of the mA and/or kV according to patient size, and/or use of iterative reconstruction technique. FINDINGS: LOWER THORAX: There is subsegmental atelectasis in the right lung base. The visualized left is clear. Moderate cardiomegaly. Small right pleural effusion. LIVER: Mild hepatomegaly. Diffuse fatty liver. Normal homogeneous enhancement. No gross lesion or ductal dilatation. GALLBLADDER AND BILE DUCTS: Contracted. PANCREAS: Normal in size with homogeneous enhancement. No gross lesion or ductal dilatation. SPLEEN: Normal in size and appearance. ADRENALS: No discrete nodule. KIDNEYS AND URETERS: Normal in size with homogeneous enhancement. There is a 4 mm nonobstructing stone in and in no hydronephrosis. No solid mass. VASCULATURE: No aortic aneurysm. There are no aortic atherosclerotic calcifications or mural plaque present. An infrarenal IVC filter remains in place. BOWEL: Evaluation of the bowel is limited in the absence of oral contrast. The small bowel loops are normal in caliber. There is sigmoid diverticulosis without CT evidence for acute diverticulitis. APPENDIX: Normal appendix. PERITONEUM: Small abdominal and pelvic ascites. No free air. LYMPH NODES: No enlarged lymph nodes. BLADDER: Well distended and normal in appearance. REPRODUCTIVE: The prostate gland is normal in size. BONES: No acute fracture. Within normal limits for the patient's age. OTHER FINDINGS: There is diffuse anasarca. IMPRESSION: 1. No acute abdominal or pelvic abnormality. 2. Mild hepatomegaly and fatty liver. 3. Small abdominal and pelvic ascites. Small right pleural effusion. Diffuse anasarca. 4. Sigmoid diverticulosis without CT evidence for acute diverticulitis. 5. 4 mm nonobstructing stone in the right interpolar region. A preliminary report was provided by [employer]
[2018-08-27] MEDS ORDERED: metroNIDAZOLE IV 500 mg/100 ml 500 MG/100 ML BAG ONE (13:24)
[2018-08-27 16:22] LABS: CK-MB 0.48 ng/mL (0.0-3.38)
--- NOTE | 2018-08-27 20:36 | CARD ---
APPROVED REPORT Date of service: 08/26/2018 EKG Measurement Heart [id number] <Conclusion> Sinus tachycardia Possible Left atrial enlargement Anterior infarct, age undetermined Abnormal ECG
--- NOTE | 2018-08-27 22:17 | CP.PCM.HP ---
Present on Admission - Present on Admission Any Indicators Present on Admission: Yes History of DVT/PE: Yes Past Patient History - Infectious Disease Hx of Infectious Diseases: None - Past Medical History & Family History Past Medical History?: Yes - Past Social History Smoking Status: Former Smoker - CARDIAC Hx Congestive Heart Failure: Yes Hx Hypertension: Yes Hx Pacemaker: Yes - PULMONARY Hx Respiratory Disorders: Yes Hx Pulmonary Edema: Yes - NEUROLOGICAL Hx Neurological Disorder: No - HEENT Hx HEENT Problems: No - RENAL Hx Chronic Kidney Disease: No - ENDOCRINE/METABOLIC Hx Endocrine Disorders: No - HEMATOLOGICAL/ONCOLOGICAL Hx Blood Disorders: No - INTEGUMENTARY Hx Dermatological Problems: No - MUSCULOSKELETAL/RHEUMATOLOGICAL Hx Musculoskeletal Disorders: No Hx Falls: No - GASTROINTESTINAL Hx Gall Bladder Disease: Yes (choleystitis) - GENITOURINARY/GYNECOLOGICAL Hx Genitourinary Disorders: No - PSYCHIATRIC Hx Substance Use: No - SURGICAL HISTORY Hx Surgeries: No - ANESTHESIA Hx Anesthesia: Yes Hx Anesthesia Reactions: No Hx Malignant Hyperthermia: No Meds Allergies/Adverse Reactions: Allergies Allergy/AdvReac Type Severity Reaction Status Date / Time No Known Allergies Allergy Verified 02/08/18 09:55 Results - Vital Signs Recent Vital Signs: Last Vital Signs Temp 97.4 F L 08/27/18 16:15 Pulse 93 H 08/27/18 16:15 Resp 20 08/27/18 16:15 BP 106/73 08/27/18 17:16 Pulse Ox 98 08/27/18 16:25 - Labs Result Diagrams: 08/26/18 22:40 08/26/18 22:40 Labs: Laboratory Results - last 24 hr 08/26/18 08/26/18 08/26/18 22:40 22:40 22:40 WBC 7.8 RBC 4.55 Hgb 11.7 L Hct 36.7 MCV 80.7 MCH 25.6 L MCHC 31.8 L RDW 20.7 H Plt Count 417 H D MPV 8.0 Neut % (Auto) 67.8 Lymph % (Auto) 20.2 [place] % (Auto) 7.6 Eos % (Auto) 3.0 Baso % (Auto) 1.4 Neut # (Auto) 5.3 Lymph # (Auto) 1.6 [place] # (Auto) 0.6 Eos # (Auto) 0.2 Baso # (Auto) 0.1 PT 43.1 H INR 3.9 H* APTT 31.5 Sodium 129 L Potassium 4.8 Chloride 100 Carbon Dioxide 19 L Anion Gap 15 BUN 19 Creatinine 1.0 Est GFR ( Amer) > 60 Est GFR (Non-Af Amer) > 60 Random Glucose 99 Calcium 9.1 Magnesium 2.1 Total Bilirubin 4.4 H AST 73 H D ALT 80 H D Alkaline Phosphatase 120 Total Creatine Kinase CK-MB (Mass) Troponin I < 0.0120 NT-Pro-B Natriuret Pep 8170 H Total Protein 7.2 Albumin 3.6 Globulin 3.6 Albumin/Globulin Ratio 1.0 Lipase 147 Urine Color Urine Clarity Urine pH Ur Specific [place] Urine Protein Urine Glucose (UA) Urine Ketones Urine Blood Urine Nitrate Urine Bilirubin Urine Urobilinogen Ur Leukocyte Esterase Urine WBC (Auto) Urine RBC (Auto) Ur Squamous Epith Cells 08/27/18 08/27/18 08/27/18 06:48 06:52 15:37 WBC RBC Hgb Hct MCV MCH MCHC RDW Plt Count MPV Neut % (Auto) Lymph % (Auto) [place] % (Auto) Eos % (Auto) Baso % (Auto) Neut # (Auto) Lymph # (Auto) [place] # (Auto) Eos # (Auto) Baso # (Auto) PT INR APTT Sodium Potassium Chloride Carbon Dioxide Anion Gap BUN Creatinine Est GFR ( Amer) Est GFR (Non-Af Amer) Random Glucose Calcium Magnesium Total Bilirubin AST ALT Alkaline Phosphatase Total Creatine Kinase 61 57 CK-MB (Mass) 0.78 0.48 Troponin I < 0.0120 < 0.0120 NT-Pro-B Natriuret Pep Total Protein Albumin Globulin Albumin/Globulin Ratio Lipase Urine Color Ibeth Urine Clarity Clear Urine pH 5.0 Ur Specific [place] 1.055 H Urine Protein Negative Urine Glucose (UA) Normal Urine Ketones Negative Urine Blood Negative Urine Nitrate Negative Urine Bilirubin Negative Urine Urobilinogen 4.0 Ur Leukocyte Esterase Neg Urine WBC (Auto) 1 Urine RBC (Auto) 1 Ur Squamous Epith Cells 1
--- NOTE | 2018-08-27 23:30 | CP.PCM.CON ---
History of Present Illness - History of Present Illness History of Present Illness: CC: Weakness 38 year old male with PMHx of heart failure EF (13.59%, echo 01/2018), non ischemic cardiomyopathy,lifevest, HTN, non-compliance with medications presents to the ED c/o abdominal distention, bloating for the past 3 days, that worsened in the last 3 hours. Patient reports feeling pressure in his abdomen. Patient also states 2 days ago he has 2 episodes of vomit. Patient was recently admitted for LLE DVT and PE, patient was started on Eliquis. Patient denies fever, chills, nausea, diarrhea, CP, palpitations, rash, weakness, numbness, history of liver disease. Chief Complaint (Nursing): Shortness Of Breath History Per: Patient History/Exam Limitations: no limitations Onset/Duration Of Symptoms: Days (3) Current Symptoms Are (Timing): Still Present Initiating Event: Upper Respiratory Illness Quality: Tightness Current Respiratory Medications: See Home Med List Associated Symptoms: Ankle/Leg Swelling Reports Recently: Hospitalized (08/06/2018) Recent travel outside of the [place]: No Additional History Per: Patient Past Medical History Reviewed: Historical Data, Nursing Documentation, Vital Signs Vital Signs: Last Vital Signs Temp 98.0 F 08/26/18 22:02 Pulse 121 H 08/26/18 22:02 Resp 20 08/26/18 22:02 BP 100/80 08/26/18 22:02 Pulse Ox 97 08/26/18 22:02 Primary Care Provider: Aris Rivas - Medical History PMH: CHF, Gall Bladder Disease (choleystitis), HTN, Hyperlipidemia Denies: Chronic Kidney Disease Surgical History: Pacemaker - [facility] Procedures DETOXIFICATION SERVICES FOR SUBSTANCE ABUSE TREATMENT (08/19/17) INSERTION OF INTRALUM DEV INTO INF VENA CAVA, PERC APPROACH (08/06/18) TRANSFUSE NONAUT FROZEN PLASMA IN PERIPH VEIN, PERC (08/06/18) Family History: States: Unknown Family Hx - Social History Hx Alcohol Use: Yes Hx Substance Use: No - Immunization History Hx Tetanus Toxoid Vaccination: No Hx Influenza Vaccination: No Hx Pneumococcal Vaccination: No Review Of Systems Constitutional: Negative for: Fever, Chills Cardiovascular: Negative for: Chest Pain, Palpitations Respiratory: Negative for: Shortness of Breath Gastrointestinal: Positive for: Abdominal Pain. Negative for: Nausea, Vomiting, Diarrhea Musculoskeletal: Negative for: Back Pain Skin: Negative for: Rash Neurological: Negative for: Weakness, Numbness, Headache, Dizziness Physical Exam - Physical Exam Appears: Non-toxic, No Acute Distress (NARD) Skin: Normal Color, Warm, Dry Head: Atraumatic, Normacephalic Eye(s): bilateral: PERRL, EOMI, Scleral Icterus Oral Mucosa: Moist Neck: Normal ROM, Supple Chest: Symmetrical Cardiovascular: Rhythm Regular (tachycardic) Respiratory: Normal Breath Sounds, No Rales, No Rhonchi, No Wheezing Gastrointestinal/Abdominal: Soft, Tenderness (diffuse), Distention, No Guarding, No Rebound Extremity: Normal ROM, No Tenderness, Pedal Edema (bilateral pitting with skin changes), Capillary Refill (< 2 seconds) Pulses: Left Dorsalis Pedis: Normal, Right Dorsalis Pedis: Normal Neurological/Psych: Oriented x3, Normal Speech, Normal Cognition Gait: Steady Past Patient History - Infectious Disease Hx of Infectious Diseases: None - Past Medical History & Family History Past Medical History?: Yes - Past Social History Smoking Status: Former Smoker - CARDIAC Hx Congestive Heart Failure: Yes Hx Hypertension: Yes Hx Pacemaker: Yes - PULMONARY Hx Respiratory Disorders: Yes Hx Pulmonary Edema: Yes - NEUROLOGICAL Hx Neurological Disorder: No - HEENT Hx HEENT Problems: No - RENAL Hx Chronic Kidney Disease: No - ENDOCRINE/METABOLIC Hx Endocrine Disorders: No - HEMATOLOGICAL/ONCOLOGICAL Hx Blood Disorders: No - INTEGUMENTARY Hx Dermatological Problems: No - MUSCULOSKELETAL/RHEUMATOLOGICAL Hx Musculoskeletal Disorders: No Hx Falls: No - GASTROINTESTINAL Hx Gall Bladder Disease: Yes (choleystitis) - GENITOURINARY/GYNECOLOGICAL Hx Genitourinary Disorders: No - PSYCHIATRIC Hx Substance Use: No - SURGICAL HISTORY Hx Surgeries: No - ANESTHESIA Hx Anesthesia: Yes Hx Anesthesia Reactions: No Hx Malignant Hyperthermia: No Meds Allergies/Adverse Reactions: Allergies Allergy/AdvReac Type Severity Reaction Status Date / Time No Known Allergies Allergy Verified 02/08/18 09:55 - Medications Medications: Current Medications Albuterol Sulfate (Albuterol 0.083% Inhal Marnie (2.5 Mg/3 Ml) Ud) 2.5 mg INH RQ4 [facility] Last Admin: 08/27/18 20:07 Dose: 2.5 mg Apixaban (Eliquis) 5 mg PO Q12 [facility] Last Admin: 08/27/18 21:04 Dose: 5 mg Aspirin (Aspirin Chewable) 81 mg PO DAILY [facility] Last Admin: 08/27/18 09:20 Dose: 81 mg Benzocaine/Menthol (Cepacol Sore Throat) 1 radha MT Q3 PRN PRN Reason: Sore Throat Carvedilol (Coreg) 6.25 mg PO BID [facility] Last Admin: 08/27/18 17:16 Dose: 6.25 mg Docusate Sodium (Colace) 100 mg PO TID [facility] Last Admin: 08/27/18 17:16 Dose: 100 mg Folic Acid (Folic Acid) 1 mg PO DAILY [facility] Last Admin: 08/27/18 09:24 Dose: 1 mg Furosemide (Lasix) 20 mg PO BID [facility] Last Admin: 08/27/18 17:16 Dose: 20 mg Metronidazole (Flagyl) 500 mg in 100 mls @ 100 mls/hr IVPB Q8H [facility]; Protocol Last Admin: 08/27/18 19:29 Dose: 100 mls/hr Lisinopril (Zestril) 5 mg PO DAILY [facility] Last Admin: 08/27/18 09:21 Dose: 5 mg Ondansetron HCl (Zofran Inj) 4 mg IVP Q6H PRN PRN Reason: NAUSEA AND VOMITTING Last Admin: 08/27/18 20:11 Dose: 4 mg Pantoprazole Sodium (Protonix Inj) 40 mg IVP DAILY [facility] Last Admin: 08/27/18 09:11 Dose: 40 mg Results - Vital Signs Recent Vital Signs: Last Vital Signs Temp 97.4 F L 08/27/18 16:15 Pulse 93 H 08/27/18 16:15 Resp 20 08/27/18 16:15 BP 106/73 08/27/18 17:16 Pulse Ox 100 08/27/18 22:36 - Labs Result Diagrams: 08/26/18 22:40 08/26/18 22:40 Labs: Laboratory Results - last 24 hr 08/26/18 08/27/18 08/27/18 22:40 06:48 06:52 Total Creatine Kinase 61 CK-MB (Mass) 0.78 Troponin I < 0.0120 < 0.0120 Urine Color Ibeth Urine Clarity Clear Urine pH 5.0 Ur Specific [place] 1.055 H Urine Protein Negative Urine Glucose (UA) Normal Urine Ketones Negative Urine Blood Negative Urine Nitrate Negative Urine Bilirubin Negative Urine Urobilinogen 4.0 Ur Leukocyte Esterase Neg Urine WBC (Auto) 1 Urine RBC (Auto) 1 Ur Squamous Epith Cells 1 08/27/18 15:37 Total Creatine Kinase 57 CK-MB (Mass) 0.48 Troponin I < 0.0120 Urine Color Urine Clarity Urine pH Ur Specific [place] Urine Protein Urine Glucose (UA) Urine Ketones Urine Blood Urine Nitrate Urine Bilirubin Urine Urobilinogen Ur Leukocyte Esterase Urine WBC (Auto) Urine RBC (Auto) Ur Squamous Epith Cells Assessment & Plan - Assessment and Plan (Free Text) Assessment: Systolic Heart Failure - bi-ventricular failure Nonischemic Cardiomyopathy Paroxysmal Vtach * Consult for AICD placement evaluation * He has persistently decreased LVEF (first seen on ECHO 08/19/17, EF <15%) * Patient experienced multiple events of non-sustained Vtach throughout the night of 08/08 to morning of 08/09. * Patient has not been a good candidate for heart transplant or life vest due to non compliance in the past. AICD placement cancelled again due to elevated INR * given Vitamin K+ 10mg IV once * transfused 1 unit of FFP * will re-evaluate tomorrow morning * AICD placement will hopefully be rescheduled tomorrow with Dr. Jones, if INR normalizes * patient will be transferred to [place] for AICD placement, then will return to [facility] after completion of procedure. Medications: * Aspirin 81 mg PO daily * Eliquis 5 po bid * Coreg 6.25 mg BID * Crestor 5 mg PO daily - on hold due to transaminitis * Lasix 20mg IVP BID Pulmonary Embolism Thrombus in Right Atrium (resolved) Thrombus in Left Ventricle DVT - left leg Acute Tubular Necrosis 2/2 contrast induced nephropathy Nephrology consulted. Continue to monitor Hepatic Insufficiency Improving continue to monitor Hold statin until normalization of transaminitis
[2018-08-28] MEDS: Albuterol 0.083% Inhal Sol (2.5 mg/3 mL) UD INH SCH ×5 (00:15→19:57)
[2018-08-28] MEDS: metroNIDAZOLE IV 500 mg/100 ml 500 MG/100 ML BAG IVPB SCH ×3 (04:00→20:40)
--- NOTE | 2018-08-28 06:01 | HP ---
CHIEF COMPLAINT: Shortness of breath and abdominal pain. HISTORY OF PRESENT ILLNESS: This is a 38-year-old male, well known to me with history of severe dilated cardiomyopathy, nonischemic with negative coronary artery disease, has a LifeVest in place, hypertension, and noncompliant with his diet, medication and followup. The patient has LV ejection fraction of 38%. He is currently in [facility] and he developed abdominal distention, bloating over a period of 3 days and it got worse over three hours prior to the admission, he felt pressure. In the meantime, also nurse noticed his blood pressure dropping. The patient was feeling dizzy, diaphoretic, and the patient had episodes of vomiting, 911 was called in and then the patient was transported to the emergency room. The patient recently was admitted to [facility] with DVT, pulmonary embolism and he underwent thrombolysis and then later on he was given Eliquis upon discharge. The patient denies any fever, chills, or rigors. He denies any nausea, vomiting, or diarrhea. He has generalized weakness, tiredness, anorexia. He denies any polyuria, polydipsia, or polyphagia. He denies any hematuria, pyuria. He denies any sneezing, itchy eyes or itchy nose. There is no history of trauma, fall, or loss of consciousness. There is no history of seizure-like activity. CURRENT MEDICATIONS: Aspirin, Eliquis, Ventolin HFA, Colace, Coreg, Zestril, Lasix. SOCIAL HISTORY: Ex-smoker and ex-alcohol user. FAMILY HISTORY: Negative for sudden cardiac in the family. PAST MEDICAL HISTORY: Congestive heart failure, nonischemic, low LV ejection fraction, hypertension, history of alcohol abuse, DVT, and pulmonary embolism. PHYSICAL EXAMINATION: GENERAL: A young male, in mild distress. VITAL SIGNS: Blood pressure of 100/73, pulse 93, respiratory rate 20, temperature 97.4. SKIN: Diaphoretic. No rashes. No bruises. No purpura. No petechiae. HEENT: Atraumatic and normocephalic. Positive pallor. Negative jaundice. Extraocular movements are intact. NECK: Supple. No JVD. No lymph nodes. No thyromegaly. No carotid bruits. CHEST WALL: Bilateral symmetrical expansion. No tenderness. No deformity. LUNGS: Bilateral basal crepitation. CARDIOVASCULAR SYSTEM: S1 and S2 plus S3 positive. ABDOMEN: Soft and nontender. Bowel sounds are positive, enlarged liver. RECTAL: No masses, no bleeding. EXTREMITIES: No clubbing,cyanosis, or edema. CENTRAL NERVOUS SYSTEM: Awake, alert, and oriented x3. Cranial nerves II through XII are normal. Power is 5/5 x4. Plantars are downgoing. ASSESSMENT: 1. Acute abdominal pain, rule out gastritis, rule out gastroenteritis, rule out peptic ulcer disease. 2. Congestive heart failure, nonischemic cardiomyopathy. 3. Deep vein thrombosis, pulmonary embolism. PLAN: Continue anticoagulants. Detailed orders are written. Please refer to the orders. Monitor the patient. Aris Rivas MD
[2018-08-28 16:50] LABS: INR 2.6; PROTHROMBIN TIME 28.6 SECONDS (9.7-12.2)
--- NOTE | 2018-08-28 22:28 | CP.PCM.PN ---
Subjective - Date & Time of Evaluation Date of Evaluation: 08/28/18 Time of Evaluation: 07:20 - Subjective Subjective: dict Objective - Vital Signs/Intake and Output Vital Signs (last 24 hours): Temp Pulse Resp BP Pulse Ox 97.5 F L 87 20 103/71 98 08/28/18 15:00 08/28/18 15:00 08/28/18 15:00 08/28/18 17:23 08/28/18 18:00 Intake and Output: 08/28/18 08/29/18 18:59 06:59 Intake Total 340 Output Total 1 Balance 339 - Medications Medications: Current Medications Albuterol Sulfate (Albuterol 0.083% Inhal Marnie (2.5 Mg/3 Ml) Ud) 2.5 mg INH RQ4 [facility] Last Admin: 08/28/18 19:57 Dose: 2.5 mg Apixaban (Eliquis) 5 mg PO Q12 [facility] Last Admin: 08/28/18 22:17 Dose: 5 mg Aspirin (Aspirin Chewable) 81 mg PO DAILY [facility] Last Admin: 08/28/18 09:03 Dose: 81 mg Benzocaine/Menthol (Cepacol Sore Throat) 1 radha MT Q3 PRN PRN Reason: Sore Throat Carvedilol (Coreg) 6.25 mg PO BID [facility] Last Admin: 08/28/18 17:24 Dose: 6.25 mg Docusate Sodium (Colace) 100 mg PO TID [facility] Last Admin: 08/28/18 17:00 Dose: 100 mg Folic Acid (Folic Acid) 1 mg PO DAILY [facility] Last Admin: 08/28/18 09:03 Dose: 1 mg Furosemide (Lasix) 40 mg IVP BID [facility] Last Admin: 08/28/18 17:23 Dose: 40 mg Metronidazole (Flagyl) 500 mg in 100 mls @ 100 mls/hr IVPB Q8H [facility]; Protocol Last Admin: 08/28/18 20:40 Dose: 100 mls/hr Ceftriaxone Sodium 1 gm/ (Sodium Chloride) 100 mls @ 100 mls/hr IVPB DAILY [facility]; Protocol Last Admin: 08/28/18 17:22 Dose: 100 mls/hr Lactulose (Enulose) 20 gm PO BID [facility] Last Admin: 08/28/18 17:24 Dose: 20 gm Lisinopril (Zestril) 5 mg PO DAILY [facility] Last Admin: 08/28/18 09:03 Dose: 5 mg Ondansetron HCl (Zofran Inj) 4 mg IVP Q6H PRN PRN Reason: NAUSEA AND VOMITTING Last Admin: 08/27/18 20:11 Dose: 4 mg Pantoprazole Sodium (Protonix Inj) 40 mg IVP DAILY [facility] Last Admin: 08/28/18 09:03 Dose: 40 mg Pneumococcal Polyvalent Vaccine (Pneumovax 23 Vaccine) 0.5 ml IM .ONCE ONE Stop: 08/29/18 10:01 - Labs Labs: 08/26/18 22:40 08/26/18 22:40 PT 28.6 SECONDS (9.7-12.2) H D 08/28/18 16:41 INR 2.6 D 08/28/18 16:41 APTT 31.5 SECONDS (21-34) 08/26/18 22:40
--- NOTE | 2018-08-28 22:52 | CP.PCM.PN ---
Subjective - Date & Time of Evaluation Date of Evaluation: 08/28/18 Time of Evaluation: 19:20 - Subjective Subjective: Patient seen and evaluated Denies chest pain and dyspnea Review Of Systems Constitutional: Negative for: Fever, Chills Cardiovascular: Negative for: Chest Pain, Palpitations Respiratory: Negative for: Shortness of Breath Gastrointestinal: Positive for: Abdominal Pain. Negative for: Nausea, Vomiting, Diarrhea Musculoskeletal: Negative for: Back Pain Skin: Negative for: Rash Neurological: Negative for: Weakness, Numbness, Headache, Dizziness Physical Exam - Physical Exam Appears: Non-toxic, No Acute Distress (NARD) Skin: Normal Color, Warm, Dry Head: Atraumatic, Normacephalic Eye(s): bilateral: PERRL, EOMI, Scleral Icterus Oral Mucosa: Moist Neck: Normal ROM, Supple Chest: Symmetrical Cardiovascular: Rhythm Regular (tachycardic) Respiratory: Normal Breath Sounds, No Rales, No Rhonchi, No Wheezing Gastrointestinal/Abdominal: Soft, Tenderness (diffuse), Distention, No Guarding, No Rebound Extremity: Normal ROM, No Tenderness, Pedal Edema (bilateral pitting with skin changes), Capillary Refill (< 2 seconds) Pulses: Left Dorsalis Pedis: Normal, Right Dorsalis Pedis: Normal Neurological/Psych: Oriented x3, Normal Speech, Normal Cognition Gait: Steady Objective - Vital Signs/Intake and Output Vital Signs (last 24 hours): Temp Pulse Resp BP Pulse Ox 97.5 F L 87 20 103/71 98 08/28/18 15:00 08/28/18 15:00 08/28/18 15:00 08/28/18 17:23 08/28/18 18:00 Intake and Output: 08/28/18 08/29/18 18:59 06:59 Intake Total 340 Output Total 1 Balance 339 - Medications Medications: Current Medications Albuterol Sulfate (Albuterol 0.083% Inhal Marnie (2.5 Mg/3 Ml) Ud) 2.5 mg INH RQ4 [facility] Last Admin: 08/28/18 19:57 Dose: 2.5 mg Apixaban (Eliquis) 5 mg PO Q12 [facility] Last Admin: 08/28/18 22:17 Dose: 5 mg Aspirin (Aspirin Chewable) 81 mg PO DAILY [facility] Last Admin: 08/28/18 09:03 Dose: 81 mg Benzocaine/Menthol (Cepacol Sore Throat) 1 radha MT Q3 PRN PRN Reason: Sore Throat Carvedilol (Coreg) 6.25 mg PO BID [facility] Last Admin: 08/28/18 17:24 Dose: 6.25 mg Docusate Sodium (Colace) 100 mg PO TID [facility] Last Admin: 08/28/18 17:00 Dose: 100 mg Folic Acid (Folic Acid) 1 mg PO DAILY [facility] Last Admin: 08/28/18 09:03 Dose: 1 mg Furosemide (Lasix) 40 mg IVP BID [facility] Last Admin: 08/28/18 17:23 Dose: 40 mg Metronidazole (Flagyl) 500 mg in 100 mls @ 100 mls/hr IVPB Q8H [facility]; Protocol Last Admin: 08/28/18 20:40 Dose: 100 mls/hr Ceftriaxone Sodium 1 gm/ (Sodium Chloride) 100 mls @ 100 mls/hr IVPB DAILY [facility]; Protocol Last Admin: 08/28/18 17:22 Dose: 100 mls/hr Lactulose (Enulose) 20 gm PO BID [facility] Last Admin: 08/28/18 17:24 Dose: 20 gm Lisinopril (Zestril) 5 mg PO DAILY [facility] Last Admin: 08/28/18 09:03 Dose: 5 mg Ondansetron HCl (Zofran Inj) 4 mg IVP Q6H PRN PRN Reason: NAUSEA AND VOMITTING Last Admin: 08/27/18 20:11 Dose: 4 mg Pantoprazole Sodium (Protonix Inj) 40 mg IVP DAILY [facility] Last Admin: 08/28/18 09:03 Dose: 40 mg Pneumococcal Polyvalent Vaccine (Pneumovax 23 Vaccine) 0.5 ml IM .ONCE ONE Stop: 08/29/18 10:01 - Labs Labs: 08/26/18 22:40 08/26/18 22:40 PT 28.6 SECONDS (9.7-12.2) H D 08/28/18 16:41 INR 2.6 D 08/28/18 16:41 APTT 31.5 SECONDS (21-34) 08/26/18 22:40 Assessment and Plan - Assessment and Plan (Free Text) Assessment: Systolic Heart Failure - bi-ventricular failure Nonischemic Cardiomyopathy Paroxysmal Vtach * Consult for AICD placement evaluation * He has persistently decreased LVEF (first seen on ECHO 08/19/17, EF <15%) * Patient experienced multiple events of non-sustained Vtach throughout the night of 08/08 to morning of 08/09. * Patient has not been a good candidate for heart transplant or life vest due to non compliance in the past. AICD placement cancelled again due to elevated INR * given Vitamin K+ 10mg IV once * transfused 1 unit of FFP * will re-evaluate tomorrow morning * AICD placement will hopefully be rescheduled tomorrow with Dr. Jones, if INR normalizes * patient will be transferred to [facility] for [facility] placement, then will return to [facility] after completion of procedure. Medications: * Aspirin 81 mg PO daily * Eliquis 5 po bid * Coreg 6.25 mg BID * Crestor 5 mg PO daily - on hold due to transaminitis * Lasix 20mg IVP BID Pulmonary Embolism Thrombus in Right Atrium (resolved) Thrombus in Left Ventricle DVT - left leg Acute Tubular Necrosis 2/2 contrast induced nephropathy Nephrology consulted. Continue to monitor Hepatic Insufficiency Improving continue to monitor Hold statin until normalization of transaminitis
[2018-08-29] MEDS: Albuterol 0.083% Inhal Sol (2.5 mg/3 mL) UD INH SCH ×6 (00:48→19:30)
--- NOTE | 2018-08-29 03:04 | PN ---
DATE: 08/28/2018 SUBJECTIVE: The patient is afebrile. He has dyspnea with exertion. He has orthopnea. He denies any PND. The patient has some epigastric pain, nausea. No vomiting. He denies any constipation, diarrhea. He denies any hematemesis, melena, or hematochezia. PHYSICAL EXAMINATION: VITAL SIGNS: Blood pressure 92/65, pulse 87, respiratory rate 20, temperature 97.5. LUNGS: Clear. No rales. Bilateral basal crepitations. CARDIOVASCULAR SYSTEM: S1 and S2, plus S3 positive. ABDOMEN: Soft, nontender. Bowel sounds are positive. ASSESSMENT: 1. Acute on chronic systolic congestive heart failure. 2. Gastritis. 3. Deep vein thrombosis. 4. Constipation. PLAN: Continue current medications. Continue IV Protonix, diuretics, intake/output, and telemetry. Monitor the patient. Aris Rivas MD
[2018-08-29] MEDS: metroNIDAZOLE IV 500 mg/100 ml 500 MG/100 ML BAG IVPB SCH ×3 (04:22→19:10)
[2018-08-29 07:27] LABS: BASO # 0.1 K/uL (0.0-0.2); BASO % 1.6 % (0.0-2.0); EOS # 0.3 K/uL (0.0-0.7); EOS % 4.2 % (0.0-4.0); HEMOGLOBIN 11.5 g/dL (12.0-18.0); LYMPH # 1.3 K/uL (1.0-4.3); LYMPH % 20.3 % (20.0-40.0); MEAN CELL VOLUME 79.3 fL (80.0-94.0); MEAN CORPUSCULAR HEMOGLOBIN 26.4 pg (27.0-31.0); MEAN CORPUSCULAR HGB CONC 33.3 g/dL (33.0-37.0); MEAN PLATELET VOLUME 7.7 fL (7.2-11.7); MONO # 0.6 K/uL (0.0-0.8); MONO % 8.6 % (0.0-10.0); NEUT # 4.3 K/uL (1.8-7.0); NEUT % 65.3 % (50.0-75.0); NRBC % 0.1 % (0.0-2.0); RBC 4.36 Mil/uL (4.40-5.90); RED CELL DISTRIBUTION WIDTH 20.4 % (11.5-14.5); WHITE BLOOD COUNT 6.6 K/uL (4.8-10.8)
[2018-08-29 07:33] LABS: INR 2.8; PROTHROMBIN TIME 31.2 SECONDS (9.7-12.2)
[2018-08-29] MEDS ORDERED: Pneumococcal 23-Valent Vaccine IM ONE (10:00)
[2018-08-29 10:27] LABS: ALBUMIN 3.1 g/dL (3.5-5.0); ALT/SGPT 65 U/L (21-72); AST/SGOT 71 U/L (17-59); BLOOD UREA NITROGEN 17 mg/dL (9-20); CALCIUM 8.8 mg/dl (8.6-10.4); GFR NON-AFRICAN AMERICAN > 60
[2018-08-29] MEDS ORDERED: guaiFENesin 200 mg/10 ml Syrup UD PO PRN (14:00)
--- NOTE | 2018-08-29 16:39 | CP.PCM.PN ---
<Jeromy Duncan - Last Filed: 08/29/18 16:36> Subjective - Date & Time of Evaluation Date of Evaluation: 08/29/18 Time of Evaluation: 11:36 - Subjective Subjective: PGY2 Cardiology Note for Dr. Mccarty Patient seen and examined this morning at bedside. Patient is still reporting some mild abdominal distention and discomfort but is otherwise feeling well. He is starting to cough again this morning after he felt he breathing better over the past couple of days. He is otherwise feeling well with no acute complaints, denying any chest pain, lightheadedness or dizziness. Objective - Vital Signs/Intake and Output Vital Signs (last 24 hours): Temp Pulse Resp BP Pulse Ox 97.8 F 98 H 20 92/57 L 97 08/29/18 08:17 08/29/18 08:17 08/29/18 08:17 08/29/18 09:21 08/29/18 08:17 Intake and Output: 08/29/18 08/29/18 06:59 18:59 Intake Total 550 Balance 550 - Medications Medications: Current Medications Albuterol Sulfate (Albuterol 0.083% Inhal Marnie (2.5 Mg/3 Ml) Ud) 2.5 mg INH RQ4 [facility] Last Admin: 08/29/18 11:10 Dose: Not Given Apixaban (Eliquis) 5 mg PO Q12 [facility] Last Admin: 08/29/18 09:19 Dose: 5 mg Aspirin (Aspirin Chewable) 81 mg PO DAILY [facility] Last Admin: 08/29/18 09:19 Dose: 81 mg Benzocaine/Menthol (Cepacol Sore Throat) 1 radha MT Q3 PRN PRN Reason: Sore Throat Carvedilol (Coreg) 6.25 mg PO BID [facility] Last Admin: 08/29/18 09:20 Dose: Not Given Docusate Sodium (Colace) 100 mg PO TID [facility] Last Admin: 08/29/18 13:57 Dose: 100 mg Folic Acid (Folic Acid) 1 mg PO DAILY [facility] Last Admin: 08/29/18 09:20 Dose: 1 mg Furosemide (Lasix) 40 mg IVP BID [facility] Last Admin: 08/29/18 09:21 Dose: Not Given Guaifenesin (Robitussin) 200 mg PO Q4H PRN PRN Reason: Cough and congestion Last Admin: 08/29/18 13:57 Dose: 200 mg Metronidazole (Flagyl) 500 mg in 100 mls @ 100 mls/hr IVPB Q8H [facility]; Protocol Last Admin: 08/29/18 12:21 Dose: 100 mls/hr Ceftriaxone Sodium 1 gm/ (Sodium Chloride) 100 mls @ 100 mls/hr IVPB DAILY [facility]; Protocol Last Admin: 08/29/18 09:39 Dose: 100 mls/hr Lactulose (Enulose) 20 gm PO BID [facility] Last Admin: 08/29/18 09:20 Dose: Not Given Lisinopril (Zestril) 5 mg PO DAILY [facility] Last Admin: 08/29/18 09:21 Dose: Not Given Ondansetron HCl (Zofran Inj) 4 mg IVP Q6H PRN PRN Reason: NAUSEA AND VOMITTING Last Admin: 08/27/18 20:11 Dose: 4 mg Pantoprazole Sodium (Protonix Ec Tab) 40 mg PO DAILY [facility] - Labs Labs: 08/29/18 07:15 08/29/18 07:15 PT 31.2 SECONDS (9.7-12.2) H 08/29/18 07:15 INR 2.8 08/29/18 07:15 APTT 31.5 SECONDS (21-34) 08/26/18 22:40 - Constitutional Appears: Non-toxic, No Acute Distress - Head Exam Head Exam: ATRAUMATIC, NORMOCEPHALIC - Eye Exam Eye Exam: Normal appearance - ENT Exam ENT Exam: Mucous Membranes Moist - Neck Exam Neck Exam: absent: Lymphadenopathy, Tenderness - Respiratory Exam Respiratory Exam: Decreased Breath Sounds, NORMAL BREATHING PATTERN. absent: Accessory Muscle Use, Rhonchi, Wheezes, Respiratory Distress - Cardiovascular Exam Cardiovascular Exam: REGULAR RHYTHM, +S1, +S2 - GI/Abdominal Exam GI & Abdominal Exam: Distended, Soft, Tenderness (mild, diffuse), Normal Bowel Sounds. absent: Firm, Guarding, Rigid - Extremities Exam Extremities Exam: Pedal Edema (2+ pitting b/l). absent: Calf Tenderness - Neurological Exam Neurological Exam: Alert, Awake, Oriented x3 - Psychiatric Exam Psychiatric exam: Normal Affect, Normal Mood Additional comments: increased energy compared to previous admission - Skin Skin Exam: Dry, Warm Assessment and Plan - Assessment and Plan (Free Text) Plan: Systolic Heart Failure - bi-ventricular failure Nonischemic Cardiomyopathy Paroxysmal Vtach * Consult for AICD placement evaluation * He has persistently decreased LVEF (first seen on ECHO 08/19/17, EF <15%) * Patient experienced multiple events of non-sustained Vtach throughout the night of 08/08 to morning of 08/09. * Patient has not been a good candidate for heart transplant or life vest due to non compliance in the past. AICD placement cancelled again due to elevated INR * given Vitamin K+ 10mg IV once * transfused 1 unit of FFP * will re-evaluate tomorrow morning * AICD placement will hopefully be rescheduled tomorrow with Dr. Jones, if INR normalizes * patient will be transferred to [facility] for AICD [place], then will return to [facility] after completion of procedure. Medications: * Aspirin 81 mg PO daily * Eliquis 5 po bid * Coreg 6.25 mg BID * Stopped Lisinopril 5mg PO daily * Start Entresto 24mg-26mg 1 tab PO BID - 1st dose to be given tomorrow night, must wait 36 hours from last dose after switching from ACEi * Lasix 40mg IVP BID Abdominal Pain GI consult management as per GI/Primary Care Case discussed with Dr. Lul Duncan PGY2 <Alfie Mccarty - Last Filed: 08/29/18 22:15> Objective - Vital Signs/Intake and Output Vital Signs (last 24 hours): Temp Pulse Resp BP Pulse Ox 97.9 F 101 H 22 110/80 98 08/29/18 16:00 08/29/18 16:00 08/29/18 16:00 08/29/18 18:59 08/29/18 16:00 - Medications Medications: Current Medications Albuterol Sulfate (Albuterol 0.083% Inhal Marnie (2.5 Mg/3 Ml) Ud) 2.5 mg INH RQ4 [facility] Last Admin: 08/29/18 19:30 Dose: Not Given Apixaban (Eliquis) 5 mg PO Q12 [facility] Last Admin: 08/29/18 21:26 Dose: 5 mg Aspirin (Aspirin Chewable) 81 mg PO DAILY [facility] Last Admin: 08/29/18 09:19 Dose: 81 mg Benzocaine/Menthol (Cepacol Sore Throat) 1 radha MT Q3 PRN PRN Reason: Sore Throat Carvedilol (Coreg) 6.25 mg PO BID [facility] Last Admin: 08/29/18 18:01 Dose: 6.25 mg Docusate Sodium (Colace) 100 mg PO TID [facility] Last Admin: 08/29/18 18:01 Dose: 100 mg Folic Acid (Folic Acid) 1 mg PO DAILY [facility] Last Admin: 08/29/18 09:20 Dose: 1 mg Furosemide (Lasix) 40 mg IVP BID [facility] Last Admin: 08/29/18 18:59 Dose: 40 mg Guaifenesin (Robitussin) 200 mg PO Q4H PRN PRN Reason: Cough and congestion Last Admin: 08/29/18 13:57 Dose: 200 mg Metronidazole (Flagyl) 500 mg in 100 mls @ 100 mls/hr IVPB Q8H [facility]; Protocol Last Admin: 08/29/18 19:10 Dose: 100 mls/hr Ceftriaxone Sodium 1 gm/ (Sodium Chloride) 100 mls @ 100 mls/hr IVPB DAILY [facility]; Protocol Last Admin: 08/29/18 09:39 Dose: 100 mls/hr Lactulose (Enulose) 20 gm PO BID [facility] Last Admin: 08/29/18 18:03 Dose: 20 gm Ondansetron HCl (Zofran Inj) 4 mg IVP Q6H PRN PRN Reason: NAUSEA AND VOMITTING Last Admin: 08/27/18 20:11 Dose: 4 mg Pantoprazole Sodium (Protonix Ec Tab) 40 mg PO DAILY [facility] Sacubitril/Valsartan (Entresto 24 Mg-26 Mg) 1 tab PO BID [facility] Zolpidem Tartrate (Ambien) 5 mg PO HS PRN PRN Reason: Insomnia - Labs Labs: 08/29/18 07:15 08/29/18 07:15 PT 31.2 SECONDS (9.7-12.2) H 08/29/18 07:15 INR 2.8 08/29/18 07:15 APTT 31.5 SECONDS (21-34) 08/26/18 22:40 Assessment and Plan - Assessment and Plan (Free Text) Plan: Patient seen and evaluated personally by me. Plan of care d/w the medical economics consultant and as documented
--- NOTE | 2018-08-29 22:44 | CP.PCM.PN ---
Subjective - Date & Time of Evaluation Date of Evaluation: 08/29/18 Time of Evaluation: 09:00 - Subjective Subjective: dict Objective - Vital Signs/Intake and Output Vital Signs (last 24 hours): Temp Pulse Resp BP Pulse Ox 97.9 F 101 H 22 110/80 98 08/29/18 16:00 08/29/18 16:00 08/29/18 16:00 08/29/18 18:59 08/29/18 16:00 - Medications Medications: Current Medications Albuterol Sulfate (Albuterol 0.083% Inhal Marnie (2.5 Mg/3 Ml) Ud) 2.5 mg INH RQ4 [facility] Last Admin: 08/29/18 19:30 Dose: Not Given Apixaban (Eliquis) 5 mg PO Q12 [facility] Last Admin: 08/29/18 21:26 Dose: 5 mg Aspirin (Aspirin Chewable) 81 mg PO DAILY [facility] Last Admin: 08/29/18 09:19 Dose: 81 mg Benzocaine/Menthol (Cepacol Sore Throat) 1 radha MT Q3 PRN PRN Reason: Sore Throat Carvedilol (Coreg) 6.25 mg PO BID [facility] Last Admin: 08/29/18 18:01 Dose: 6.25 mg Docusate Sodium (Colace) 100 mg PO TID [facility] Last Admin: 08/29/18 18:01 Dose: 100 mg Folic Acid (Folic Acid) 1 mg PO DAILY [facility] Last Admin: 08/29/18 09:20 Dose: 1 mg Furosemide (Lasix) 40 mg IVP BID [facility] Last Admin: 08/29/18 18:59 Dose: 40 mg Guaifenesin (Robitussin) 200 mg PO Q4H PRN PRN Reason: Cough and congestion Last Admin: 08/29/18 13:57 Dose: 200 mg Metronidazole (Flagyl) 500 mg in 100 mls @ 100 mls/hr IVPB Q8H [facility]; Protocol Last Admin: 08/29/18 19:10 Dose: 100 mls/hr Ceftriaxone Sodium 1 gm/ (Sodium Chloride) 100 mls @ 100 mls/hr IVPB DAILY [facility]; Protocol Last Admin: 08/29/18 09:39 Dose: 100 mls/hr Lactulose (Enulose) 20 gm PO BID [facility] Last Admin: 08/29/18 18:03 Dose: 20 gm Ondansetron HCl (Zofran Inj) 4 mg IVP Q6H PRN PRN Reason: NAUSEA AND VOMITTING Last Admin: 08/27/18 20:11 Dose: 4 mg Pantoprazole Sodium (Protonix Ec Tab) 40 mg PO DAILY [facility] Sacubitril/Valsartan (Entresto 24 Mg-26 Mg) 1 tab PO BID [facility] Zolpidem Tartrate (Ambien) 5 mg PO HS PRN PRN Reason: Insomnia - Labs Labs: 08/29/18 07:15 08/29/18 07:15 PT 31.2 SECONDS (9.7-12.2) H 08/29/18 07:15 INR 2.8 08/29/18 07:15 APTT 31.5 SECONDS (21-34) 08/26/18 22:40
[2018-08-30] MEDS: Albuterol 0.083% Inhal Sol (2.5 mg/3 mL) UD INH SCH ×6 (00:31→20:58)
[2018-08-30 01:52] VITALS: RESP 20
--- NOTE | 2018-08-30 02:38 | PN ---
DATE: 08/29/2018 SUBJECTIVE: The patient is feeling better. He is less short of breath. Less edema. Diuresing. PHYSICAL EXAMINATION: VITAL SIGNS: Blood pressure 102/75, pulse 101, respiratory rate 22, temperature 97.9. LUNGS: Basal rales. Decreased air entry. CARDIOVASCULAR SYSTEM: S1 and S2. Regular. ABDOMEN: Soft. ASSESSMENT: 1. Congestive heart failure. Continue diuretics, intake and output. The patient has arrhythmia . 2. Pulmonary embolism, deep venous thrombosis. Continue Eliquis. 3. Abdominal pain, gastritis. PLAN: Continue current medication. Monitor the patient. Aris Rivas MD
[2018-08-30] MEDS: metroNIDAZOLE IV 500 mg/100 ml 500 MG/100 ML BAG IVPB SCH (04:44)
[2018-08-30] MEDS: Pantoprazole 40 mg EC Tab PO SCH (11:01)
[2018-08-30] MEDS: POLYETHYLENE GLYCOL 3350 17 GM/Dose PACKET PO SCH (11:11)
--- NOTE | 2018-08-30 12:44 | PN ---
DATE: 08/30/2018 LOCATION: 671, bed A. SUBJECTIVE: This is a 38-year-old male seen and examined initially for GI consultation on 08/29/2018 as requested by the admitting medical team, reexamined again today. The entire chart is reviewed including but not limited to the most recent lab and radiology study results and the official consultation sheet dictated on 08/29/2018. Today's lab results showed hemoglobin 11.5, hematocrit 34.6 with low indices but thrombocytosis of 408 with increased PT to 31.2, CO2 content 18, total bilirubin went down to 3.24 with AST 71 but normal ALT secondary to alcoholism with low albumin 3.1, low total protein 6.2. PHYSICAL EXAMINATION: GENERAL: A 38-year-old male awake, alert. VITAL SIGNS: Afebrile with pulse of 90, respiratory rate 20 to 22, blood pressure 114/76. HEENT: Showed pale, dry oral mucous membrane. Nonicteric sclerae. LUNGS: Few scattered crepitation. Decreased air entry at bases. HEART: Positive S1 and S2. ABDOMEN: Soft with mild generalized tenderness. Mild distention. No mass or organomegaly. No rebound tenderness or guarding. EXTREMITIES: Without edema, clubbing or cyanosis. NEUROLOGIC: No reported new neurological deficits, sensory or motor. IMPRESSION: 1. Re-exacerbation of peptic ulcer disease. 2. Anemia, most likely secondary to chronic disease. 3. Abnormal CAT scan of the abdomen and pelvis. 4. Jaundice, secondary to liver disease. 5. Known history of hyperlipidemia, hypertension with nonischemic cardiomyopathy with congestive heart failure by history. SUGGESTIONS: 1. Agree with your plan. 2. Conservative treatment. 3. MRCP for evaluation of the hepatopancreatic area. 4. Further recommendation to follow. Carlos Soni MD
[2018-08-30] MEDS ORDERED: Sacubitril/Valsartan 24-26mg Tab PO SCH (18:00)
--- NOTE | 2018-08-30 18:03 | CP.PCM.PN ---
<Jeromy Duncan - Last Filed: 08/30/18 17:59> Subjective - Date & Time of Evaluation Date of Evaluation: 08/30/18 Time of Evaluation: 09:30 - Subjective Subjective: PGY2 Cardiology Note for Dr. Mccarty Patient seen and examined this morning at bedside. No acute events overnight. Patient is resting in bed comfortably. His breathing is improving, as well as the swelling in his legs. He is no longer coughing at this time. Denies any chest pain or shortness of breath. Objective - Vital Signs/Intake and Output Vital Signs (last 24 hours): Temp Pulse Resp BP Pulse Ox 97.9 F 90 20 105/81 99 08/30/18 15:00 08/30/18 15:00 08/30/18 15:00 08/30/18 15:00 08/30/18 15:00 Intake and Output: 08/30/18 08/30/18 06:59 18:59 Intake Total 350 Output Total 450 Balance -100 - Medications Medications: Current Medications Albuterol Sulfate (Albuterol 0.083% Inhal Marnie (2.5 Mg/3 Ml) Ud) 2.5 mg INH RQ4 [facility] Last Admin: 08/30/18 11:12 Dose: Not Given Apixaban (Eliquis) 5 mg PO Q12 [facility] Last Admin: 08/30/18 11:01 Dose: 5 mg Aspirin (Aspirin Chewable) 81 mg PO DAILY [facility] Last Admin: 08/30/18 11:02 Dose: 81 mg Benzocaine/Menthol (Cepacol Sore Throat) 1 radha MT Q3 PRN PRN Reason: Sore Throat Carvedilol (Coreg) 6.25 mg PO BID [facility] Last Admin: 08/30/18 11:02 Dose: 6.25 mg Folic Acid (Folic Acid) 1 mg PO DAILY [facility] Last Admin: 08/30/18 11:01 Dose: 1 mg Furosemide (Lasix) 40 mg IVP BID [facility] Last Admin: 08/30/18 11:02 Dose: 40 mg Guaifenesin (Robitussin) 200 mg PO Q4H PRN PRN Reason: Cough and congestion Last Admin: 08/29/18 13:57 Dose: 200 mg Ceftriaxone Sodium 1 gm/ (Sodium Chloride) 100 mls @ 100 mls/hr IVPB DAILY [facility]; Protocol Last Admin: 08/30/18 11:06 Dose: 100 mls/hr Lactulose (Enulose) 20 gm PO BID [facility] Last Admin: 08/30/18 11:01 Dose: 20 gm Ondansetron HCl (Zofran Inj) 4 mg IVP Q6H PRN PRN Reason: NAUSEA AND VOMITTING Last Admin: 08/30/18 12:08 Dose: 4 mg Pantoprazole Sodium (Protonix Ec Tab) 40 mg PO DAILY [facility] Last Admin: 08/30/18 11:01 Dose: 40 mg Polyethylene Glycol (Miralax) 17 gm PO DAILY [facility] Last Admin: 08/30/18 11:11 Dose: 17 gm Sacubitril/Valsartan (Entresto 24 Mg-26 Mg) 1 tab PO BID [facility] Zolpidem Tartrate (Ambien) 5 mg PO HS PRN PRN Reason: Insomnia - Labs Labs: 08/29/18 07:15 08/29/18 07:15 PT 31.2 SECONDS (9.7-12.2) H 08/29/18 07:15 INR 2.8 08/29/18 07:15 APTT 31.5 SECONDS (21-34) 08/26/18 22:40 - Additional Findings Additional findings: - Constitutional Appears: Non-toxic, No Acute Distress - Head Exam Head Exam: ATRAUMATIC, NORMOCEPHALIC - Eye Exam Eye Exam: Normal appearance - ENT Exam ENT Exam: Mucous Membranes Moist - Neck Exam Neck Exam: absent: Lymphadenopathy, Tenderness - Respiratory Exam Respiratory Exam: Clear Breath Sounds, NORMAL BREATHING PATTERN. absent: Accessory Muscle Use, Rhonchi, Wheezes, Respiratory Distress - Cardiovascular Exam Cardiovascular Exam: REGULAR RHYTHM, +S1, +S2 - GI/Abdominal Exam GI & Abdominal Exam: Distended, Soft, Tenderness (mild, diffuse), Normal Bowel Sounds. absent: Firm, Guarding, Rigid - Extremities Exam Extremities Exam: Pedal Edema (2+ pitting b/l). absent: Calf Tenderness - Neurological Exam Neurological Exam: Alert, Awake, Oriented x3 - Psychiatric Exam Psychiatric exam: Normal Affect, Normal Mood - Skin Skin Exam: Dry, Warm Assessment and Plan - Assessment and Plan (Free Text) Plan: Systolic Heart Failure - bi-ventricular failure Nonischemic Cardiomyopathy Paroxysmal Vtach * Consult for AICD placement evaluation (can not be done due to elevated INR) * He has persistently decreased LVEF (first seen on ECHO 08/19/17, EF <15%) * Patient has not been a good candidate for heart transplant or life vest due to non compliance in the past. * Swelling in legs improving Medications: * Aspirin 81 mg PO daily * Eliquis 5 po bid * Coreg 6.25 mg BID * Stopped Lisinopril 5mg PO daily * Start Entresto 24mg-26mg 1 tab PO BID - 1st dose to be given tonight, due to 36 hours waiting period from last dose when switching from ACEi * Lasix 40mg IVP BID Abdominal Pain GI consult management as per GI/Primary Care DISPO: Patient is stable from cardiac standpoint for discharge back to [facility]. Case discussed with Dr. Lul Duncan PGY2 <Alfie Mccarty - Last Filed: 08/31/18 03:48> Objective - Vital Signs/Intake and Output Vital Signs (last 24 hours): Temp Pulse Resp BP Pulse Ox 97.9 F 91 H 20 107/76 99 08/30/18 15:00 08/31/18 01:00 08/30/18 22:00 08/30/18 22:00 08/30/18 15:00 - Medications Medications: Current Medications Albuterol Sulfate (Albuterol 0.083% Inhal Marnie (2.5 Mg/3 Ml) Ud) 2.5 mg INH RQ4 [facility] Last Admin: 08/31/18 03:39 Dose: Not Given Apixaban (Eliquis) 5 mg PO Q12 [facility] Last Admin: 08/30/18 22:23 Dose: 5 mg Aspirin (Aspirin Chewable) 81 mg PO DAILY [facility] Last Admin: 08/30/18 11:02 Dose: 81 mg Benzocaine/Menthol (Cepacol Sore Throat) 1 radha MT Q3 PRN PRN Reason: Sore Throat Carvedilol (Coreg) 6.25 mg PO BID [facility] Last Admin: 08/30/18 19:28 Dose: 6.25 mg Folic Acid (Folic Acid) 1 mg PO DAILY [facility] Last Admin: 08/30/18 11:01 Dose: 1 mg Furosemide (Lasix) 40 mg IVP BID [facility] Last Admin: 08/30/18 19:29 Dose: 40 mg Guaifenesin (Robitussin) 200 mg PO Q4H PRN PRN Reason: Cough and congestion Last Admin: 08/29/18 13:57 Dose: 200 mg Ceftriaxone Sodium 1 gm/ (Sodium Chloride) 100 mls @ 100 mls/hr IVPB DAILY [facility]; Protocol Last Admin: 08/30/18 11:06 Dose: 100 mls/hr Lactulose (Enulose) 20 gm PO BID [facility] Last Admin: 08/30/18 19:28 Dose: 20 gm Ondansetron HCl (Zofran Inj) 4 mg IVP Q6H PRN PRN Reason: NAUSEA AND VOMITTING Last Admin: 08/30/18 12:08 Dose: 4 mg Pantoprazole Sodium (Protonix Ec Tab) 40 mg PO DAILY [facility] Last Admin: 08/30/18 11:01 Dose: 40 mg Polyethylene Glycol (Miralax) 17 gm PO DAILY [facility] Last Admin: 08/30/18 11:11 Dose: 17 gm Sacubitril/Valsartan (Entresto 24 Mg-26 Mg) 1 tab PO BID [facility] Last Admin: 08/30/18 22:24 Dose: 1 tab Zolpidem Tartrate (Ambien) 5 mg PO HS PRN PRN Reason: Insomnia - Labs Labs: 08/29/18 07:15 08/29/18 07:15 PT 31.2 SECONDS (9.7-12.2) H 08/29/18 07:15 INR 2.8 08/29/18 07:15 APTT 31.5 SECONDS (21-34) 08/26/18 22:40 Assessment and Plan - Assessment and Plan (Free Text) Plan: Patient seen and evaluated personally by me. Plan of ileana d/w the medical registrar and as documented
[2018-08-30] MEDS: Sacubitril/Valsartan 24-26mg Tab PO SCH (22:24)
[2018-08-31] MEDS: Albuterol 0.083% Inhal Sol (2.5 mg/3 mL) UD INH SCH ×7 (00:08→23:54)
--- NOTE | 2018-08-31 04:42 | CP.PCM.PN ---
Subjective - Date & Time of Evaluation Date of Evaluation: 08/30/18 Time of Evaluation: 08:20 - Subjective Subjective: dict Objective - Vital Signs/Intake and Output Vital Signs (last 24 hours): Temp Pulse Resp BP Pulse Ox 97.9 F 91 H 20 107/76 99 08/30/18 15:00 08/31/18 01:00 08/30/18 22:00 08/30/18 22:00 08/30/18 15:00 - Medications Medications: Current Medications Albuterol Sulfate (Albuterol 0.083% Inhal Marnie (2.5 Mg/3 Ml) Ud) 2.5 mg INH RQ4 [facility] Last Admin: 08/31/18 03:39 Dose: Not Given Apixaban (Eliquis) 5 mg PO Q12 [facility] Last Admin: 08/30/18 22:23 Dose: 5 mg Aspirin (Aspirin Chewable) 81 mg PO DAILY [facility] Last Admin: 08/30/18 11:02 Dose: 81 mg Benzocaine/Menthol (Cepacol Sore Throat) 1 radha MT Q3 PRN PRN Reason: Sore Throat Carvedilol (Coreg) 6.25 mg PO BID [facility] Last Admin: 08/30/18 19:28 Dose: 6.25 mg Folic Acid (Folic Acid) 1 mg PO DAILY [facility] Last Admin: 08/30/18 11:01 Dose: 1 mg Furosemide (Lasix) 40 mg IVP BID [facility] Last Admin: 08/30/18 19:29 Dose: 40 mg Guaifenesin (Robitussin) 200 mg PO Q4H PRN PRN Reason: Cough and congestion Last Admin: 08/29/18 13:57 Dose: 200 mg Ceftriaxone Sodium 1 gm/ (Sodium Chloride) 100 mls @ 100 mls/hr IVPB DAILY [facility]; Protocol Last Admin: 08/30/18 11:06 Dose: 100 mls/hr Lactulose (Enulose) 20 gm PO BID [facility] Last Admin: 08/30/18 19:28 Dose: 20 gm Ondansetron HCl (Zofran Inj) 4 mg IVP Q6H PRN PRN Reason: NAUSEA AND VOMITTING Last Admin: 08/30/18 12:08 Dose: 4 mg Pantoprazole Sodium (Protonix Ec Tab) 40 mg PO DAILY [facility] Last Admin: 08/30/18 11:01 Dose: 40 mg Polyethylene Glycol (Miralax) 17 gm PO DAILY [facility] Last Admin: 08/30/18 11:11 Dose: 17 gm Sacubitril/Valsartan (Entresto 24 Mg-26 Mg) 1 tab PO BID [facility] Last Admin: 08/30/18 22:24 Dose: 1 tab Zolpidem Tartrate (Ambien) 5 mg PO HS PRN PRN Reason: Insomnia - Labs Labs: 08/29/18 07:15 08/29/18 07:15 PT 31.2 SECONDS (9.7-12.2) H 08/29/18 07:15 INR 2.8 08/29/18 07:15 APTT 31.5 SECONDS (21-34) 08/26/18 22:40
[2018-08-31] MEDS: Pantoprazole 40 mg EC Tab PO SCH (09:59)
[2018-08-31] MEDS: Sacubitril/Valsartan 24-26mg Tab PO SCH ×2 (10:02→22:29)
[2018-08-31] MEDS: POLYETHYLENE GLYCOL 3350 17 GM/Dose PACKET PO SCH ×2 (10:03→21:00)
--- NOTE | 2018-08-31 12:04 | PN ---
DATE: 08/31/2018 LOCATION: 671, bed A. SUBJECTIVE: This 38-year-old male was seen earlier in rounds today, appeared to be somewhat sleepy without reported evidence of active GI bleeding, chest pain, palpitation or significant increase of shortness of breath. The entire chart is reviewed including but not limited to most recent lab and radiology study results. Today's lab is still pending. The patient still has evidence of hypochromic microcytic anemia with thrombocytosis with increased PT, but normal PTT with increased total bilirubin and AST, but normal ALT and alkaline phosphatase which could be secondary to alcoholism versus right-sided heart failure. Total protein 6.2 with albumin 3.1 before. PHYSICAL EXAMINATION: GENERAL: A 38-year-old male. VITAL SIGNS: Afebrile with pulse of 88, respiratory rate 20-22, blood pressure of 110/74. HEENT: Showed pale, dry, mucous membrane. Bilateral icteric sclerae. LUNGS: Few scattered crepitation. Decreased air entry at bases. HEART: Positive S1 and S2. ABDOMEN: Soft with mild generalized tenderness. No mass or organomegaly. No rebound tenderness or guarding. EXTREMITIES: Without significant clubbing or cyanosis, but edematous changes of the lower extremities. IMPRESSION: 1. Congestive heart failure. 2. Abnormal liver function test most likely secondary to right-sided failure versus hepatic insufficiency. 3. Coagulopathy, drug-induced. 4. Abnormal CAT scan of abdomen and pelvis with mild hepatomegaly and small amount of ascites with evidence of left-sided diverticulosis. 5. Renal stone, radiology study results. 6. Jaundice secondary to hepatocellular injury. No evidence of obstructive jaundice. SUGGESTIONS: 1. Continue current management. 2. Antireflux measures. 3. No aggressive GI workup in the meantime, this is as per the employee relations consultant and low dose of Lasix in combination with Aldactone to be kept in mind. Further recommendation to follow. It has to be mentioned that an official consultation sheet placed in the system on 08/29/2018, unfortunately so far it is not shown in the computer screen by now for unclear reasons. We will follow up closely with you as needed. Carlos Soni MD
--- NOTE | 2018-08-31 19:44 | CP.PCM.PN ---
Subjective - Date & Time of Evaluation Date of Evaluation: 08/31/18 Time of Evaluation: 09:20 - Subjective Subjective: dict Objective - Vital Signs/Intake and Output Vital Signs (last 24 hours): Temp Pulse Resp BP Pulse Ox 97.4 F L 85 20 94/61 L 100 08/31/18 16:00 08/31/18 16:00 08/31/18 16:00 08/31/18 16:00 08/31/18 16:00 Intake and Output: 08/31/18 09/01/18 18:59 06:59 Intake Total 300 Output Total 1 Balance 299 - Medications Medications: Current Medications Albuterol Sulfate (Albuterol 0.083% Inhal Marnie (2.5 Mg/3 Ml) Ud) 2.5 mg INH RQ4 [facility] Last Admin: 08/31/18 15:55 Dose: Not Given Apixaban (Eliquis) 5 mg PO Q12 [facility] Last Admin: 08/31/18 09:59 Dose: 5 mg Aspirin (Aspirin Chewable) 81 mg PO DAILY [facility] Last Admin: 08/31/18 10:00 Dose: 81 mg Benzocaine/Menthol (Cepacol Sore Throat) 1 radha MT Q3 PRN PRN Reason: Sore Throat Carvedilol (Coreg) 6.25 mg PO BID [facility] Last Admin: 08/31/18 10:01 Dose: 6.25 mg Folic Acid (Folic Acid) 1 mg PO DAILY [facility] Last Admin: 08/31/18 10:00 Dose: 1 mg Furosemide (Lasix) 40 mg IVP BID [facility] Last Admin: 08/31/18 10:03 Dose: Not Given Guaifenesin (Robitussin) 200 mg PO Q4H PRN PRN Reason: Cough and congestion Last Admin: 08/29/18 13:57 Dose: 200 mg Ceftriaxone Sodium 1 gm/ (Sodium Chloride) 100 mls @ 100 mls/hr IVPB DAILY [facility]; Protocol Last Admin: 08/31/18 10:03 Dose: 100 mls/hr Lactulose (Enulose) 20 gm PO BID [facility] Last Admin: 08/31/18 18:12 Dose: 20 gm Ondansetron HCl (Zofran Inj) 4 mg IVP Q6H PRN PRN Reason: NAUSEA AND VOMITTING Last Admin: 08/30/18 12:08 Dose: 4 mg Pantoprazole Sodium (Protonix Ec Tab) 40 mg PO DAILY [facility] Last Admin: 08/31/18 09:59 Dose: 40 mg Polyethylene Glycol (Miralax) 17 gm PO DAILY [facility] Last Admin: 08/31/18 10:03 Dose: Not Given Sacubitril/Valsartan (Entresto 24 Mg-26 Mg) 1 tab PO BID [facility] Last Admin: 08/31/18 10:02 Dose: Not Given Zolpidem Tartrate (Ambien) 5 mg PO HS PRN PRN Reason: Insomnia - Labs Labs: 08/29/18 07:15 08/29/18 07:15 PT 31.2 SECONDS (9.7-12.2) H 08/29/18 07:15 INR 2.8 08/29/18 07:15 APTT 31.5 SECONDS (21-34) 08/26/18 22:40
--- NOTE | 2018-09-01 01:47 | PN ---
DATE: 08/31/2018 SUBJECTIVE: The patient is feeling better. He is waiting for insurance prior authorization to go back to subacute rehab. Less short of breath. The patient has less edema. No nausea, vomiting. PHYSICAL EXAMINATION: VITAL SIGNS: Blood pressure 94/61, pulse 85, respiratory rate 20, temperature 97.4. LUNGS: Bilateral basal rales. CARDIOVASCULAR SYSTEM: S1 and S2 plus S3 positive. ABDOMEN: Soft. ASSESSMENT: 1. Exacerbation of congestive heart failure. 2. Deep venous thrombosis and pulmonary embolism, on Eliquis. PLAN: Continue current medication. Monitor the patient. Aris Rivas MD
[2018-09-01] MEDS: Albuterol 0.083% Inhal Sol (2.5 mg/3 mL) UD INH SCH ×2 (03:15→09:32)
[2018-09-01 08:01] LABS: BASO # 0.1 K/uL (0.0-0.2); BASO % 1.2 % (0.0-2.0); EOS # 0.4 K/uL (0.0-0.7); EOS % 5.6 % (0.0-4.0); HEMOGLOBIN 11.9 g/dL (12.0-18.0); LYMPH # 1.2 K/uL (1.0-4.3); LYMPH % 16.8 % (20.0-40.0); MEAN CELL VOLUME 78.7 fL (80.0-94.0); MEAN CORPUSCULAR HEMOGLOBIN 26.4 pg (27.0-31.0); MEAN CORPUSCULAR HGB CONC 33.5 g/dL (33.0-37.0); MEAN PLATELET VOLUME 7.8 fL (7.2-11.7); MONO # 0.7 K/uL (0.0-0.8); MONO % 9.2 % (0.0-10.0); NEUT # 4.9 K/uL (1.8-7.0); NEUT % 67.2 % (50.0-75.0); NRBC % 0.2 % (0.0-2.0); RBC 4.52 Mil/uL (4.40-5.90); RED CELL DISTRIBUTION WIDTH 21.3 % (11.5-14.5); WHITE BLOOD COUNT 7.3 K/uL (4.8-10.8)
[2018-09-01 08:04] LABS: INR 2.3
[2018-09-01 08:58] LABS: ALB/GLOB RATIO 0.9 (1.0-2.1); ALBUMIN 2.8 g/dL (3.5-5.0); ALT/SGPT 59 U/L (21-72); AST/SGOT 58 U/L (17-59); BLOOD UREA NITROGEN 13 mg/dL (9-20); CALCIUM 8.6 mg/dl (8.6-10.4); GFR NON-AFRICAN AMERICAN > 60
[2018-09-01] MEDS: Pantoprazole 40 mg EC Tab PO SCH (10:55)
[2018-09-01] MEDS: Sacubitril/Valsartan 24-26mg Tab PO SCH ×2 (10:56→22:37)
[2018-09-01] MEDS: POLYETHYLENE GLYCOL 3350 17 GM/Dose PACKET PO SCH (10:57)
--- NOTE | 2018-09-01 20:58 | CP.PCM.PN ---
Subjective - Date & Time of Evaluation Date of Evaluation: 09/01/18 Time of Evaluation: 09:20 - Subjective Subjective: dict Objective - Vital Signs/Intake and Output Vital Signs (last 24 hours): Temp Pulse Resp BP Pulse Ox 97.7 F 103 H 20 102/72 95 09/01/18 08:19 09/01/18 14:00 09/01/18 08:19 09/01/18 17:51 09/01/18 08:19 - Medications Medications: Current Medications Apixaban (Eliquis) 5 mg PO Q12 [facility] Last Admin: 09/01/18 10:55 Dose: 5 mg Aspirin (Aspirin Chewable) 81 mg PO DAILY [facility] Last Admin: 09/01/18 10:55 Dose: 81 mg Benzocaine/Menthol (Cepacol Sore Throat) 1 radha MT Q3 PRN PRN Reason: Sore Throat Carvedilol (Coreg) 6.25 mg PO BID [facility] Last Admin: 09/01/18 17:50 Dose: 6.25 mg Folic Acid (Folic Acid) 1 mg PO DAILY [facility] Last Admin: 09/01/18 10:55 Dose: 1 mg Furosemide (Lasix) 40 mg IVP BID [facility] Last Admin: 09/01/18 17:51 Dose: 40 mg Guaifenesin (Robitussin) 200 mg PO Q4H PRN PRN Reason: Cough and congestion Last Admin: 08/29/18 13:57 Dose: 200 mg Ceftriaxone Sodium 1 gm/ (Sodium Chloride) 100 mls @ 100 mls/hr IVPB DAILY [facility]; Protocol Last Admin: 09/01/18 10:54 Dose: 100 mls/hr Lactulose (Enulose) 20 gm PO BID [facility] Last Admin: 09/01/18 17:51 Dose: 20 gm Ondansetron HCl (Zofran Inj) 4 mg IVP Q6H PRN PRN Reason: NAUSEA AND VOMITTING Last Admin: 08/30/18 12:08 Dose: 4 mg Pantoprazole Sodium (Protonix Ec Tab) 40 mg PO DAILY [facility] Last Admin: 09/01/18 10:55 Dose: 40 mg Polyethylene Glycol (Miralax) 17 gm PO DAILY [facility] Last Admin: 09/01/18 10:57 Dose: Not Given Sacubitril/Valsartan (Entresto 24 Mg-26 Mg) 1 tab PO BID [facility] Last Admin: 09/01/18 10:56 Dose: Not Given Zolpidem Tartrate (Ambien) 5 mg PO HS PRN PRN Reason: Insomnia Last Admin: 09/01/18 03:53 Dose: 5 mg - Labs Labs: 09/01/18 07:47 09/01/18 07:47 PT 25.0 SECONDS (9.7-12.2) H 09/01/18 07:47 INR 2.3 09/01/18 07:47 APTT 31.0 SECONDS (21-34) 09/01/18 07:47
[2018-09-01] MEDS ORDERED: Potassium Chloride 20 mEq/15 ml LIQ UD PO STA (21:19)
--- NOTE | 2018-09-02 00:11 | PN ---
DATE: 09/01/2018 SUBJECTIVE: The patient is less short of breath, less distressed. He is afebrile. He is waiting for insurance authorization to go to subacute rehab. PHYSICAL EXAMINATION: VITAL SIGNS: Blood pressure 106/73, pulse 103, respiratory rate 20, and temperature 97.7. LUNGS: Bibasilar rales. CARDIOVASCULAR SYSTEM: S1 and S2, regular. ABDOMEN: Soft. ASSESSMENT: 1. Congestive heart failure. 2. Deep venous thrombosis and pulmonary embolism. 3. Hypokalemia. PLAN: Potassium supplementation. Wait for the insurance authorization for the patient to go to subacute rehab. Continue current medications. Aris Rivas MD
[2018-09-02] MEDS: Pantoprazole 40 mg EC Tab PO SCH (10:01)
[2018-09-02] MEDS: POLYETHYLENE GLYCOL 3350 17 GM/Dose PACKET PO SCH (10:14)
--- NOTE | 2018-09-02 10:20 | PN ---
DATE: 08/31/2018 SUBJECTIVE: The patient is less short of breath, less edema. He has been diuresed for cardiac catheterization. No nausea or vomiting. PHYSICAL EXAMINATION: VITAL SIGNS: Blood pressure 105/81, pulse 90, respiratory rate 20 and temperature 97.9. The patient has arrhythmia at rest. CHEST: Chest wall bilaterally symmetrical . LUNGS: Bilateral basal crepitations. No rhonchi. CARDIOVASCULAR: S1 and S2 positive. ABDOMEN: Soft and nontender. Bowel sounds positive. ASSESSMENT: 1. Deep venous thrombosis and pulmonary embolism. The patient is on Eliquis. 2. Non-ischemic dilated cardiomyopathy. The patient is eventually on automatic implantable cardioverter-defibrillator. The patient is being evaluated. 3. Anemia. PLAN: Cardiac cath on diuretics, intake and output, and monitor the patient. Aris Rivas MD
[2018-09-02] MEDS: Sacubitril/Valsartan 24-26mg Tab PO SCH (12:00)
--- NOTE | 2018-09-02 15:26 | PN ---
DATE: 09/02/2018 LOCATION: 671, bed A. SUBJECTIVE: This 38-year-old male seen and examined early in rounds without reported active GI bleeding, appears to be somewhat more awake and oriented with reported episodes of V-tach recently. No reported chest pain, palpitation or evidence of active GI bleeding. Most recent lab results showed hemoglobin 10.9 with low indices but thrombocytosis of 421 with normal white blood cells. Today's lab results still pending and the patient still have elevated PT, drug-induced, with low albumin, low total protein with increased alpha fetoprotein, CEA as well as CEA 19-9. PHYSICAL EXAMINATION: GENERAL: A 38-year-old male. VITAL SIGNS: Afebrile with pulse of 94, respiratory rate 20 to 22, blood pressure of 110/72. HEENT: Showed pale, dry oral mucous membrane. Nonicteric sclerae. LUNGS: Few scattered crepitation. Decreased air entry at bases. HEART: Positive S1 and S2. ABDOMEN: Soft with mild generalized tenderness. No mass or organomegaly. No rebound tenderness or guarding. EXTREMITIES: With lower extremities mild tenderness. No clubbing or cyanosis. No significant edematous changes. NEUROLOGIC: No reported new neurological deficits, sensory or motor. IMPRESSION: 1. Congestive heart failure. 2. Dependent thrombosis. 3. Anemia, most likely secondary to chronic disease. 4. Abnormal CAT scan of the abdomen and pelvis. 5. Known history of hyperlipidemia with nonischemic cardiomyopathy. 6. Re-exacerbation of peptic ulcer disease. 7. Coagulopathy, drug-induced. 8. Hypocalcemia by recent history. 9. Mild jaundice, most likely it is a refractory phenomena with malnutrition, hypoalbuminemia, hypoproteinemia. SUGGESTIONS: 1. Continue current management. 2. MRCP. 3. Due to the patient's elevated cancer markers, aggressive workup to be scheduled only when the patient is more stable clinically, otherwise close observation to follow. Carlos Soni MD
[2018-09-02 16:06] VITALS: BP 99/66; PULSE 104; TEMP 97.7
--- NOTE | 2018-09-02 16:27 | PCM.HF ---
Heart Failure Core Measure - Heart Failure Ejection Fraction: Less Than 40 % (EF 13.77%) DONNA Inhibitor Prescribed: No Contraindication/Reason for not providing: on ARB Beta-Bradley Prescribed: Carvedilol Angiotensin II Receptor Bradley Prescribed: Yes AnticoagulationTherapy for Atrial Fibrillation/Atrialflutter: Yes Aldosterone Antagonist Prescribed: No Contraindication/Reason for not providing: low BP Contraindication/Reason for not providing: low BP Implantable Cardioverter Defibrillator Therapy: No Contraindication/Reason for not providing: on life vest; to be seen by the cardiologyst for AICD Cardiac Resynchronization Therapy Prescribed: No Contraindication/Reason for not providing: not indicated - Follow up Will be discharged to: Home Follow Up Date (must be within 7 days from discharge): 09/09/18 Follow Up Time: 10:00
--- NOTE | 2018-09-02 17:24 | CP.PCM.PN ---
Subjective - Date & Time of Evaluation Date of Evaluation: 09/02/18 Time of Evaluation: 17:24 Objective - Vital Signs/Intake and Output Vital Signs (last 24 hours): Temp Pulse Resp BP Pulse Ox 97.7 F 104 H 20 99/66 L 98 09/02/18 16:05 09/02/18 16:05 09/02/18 16:05 09/02/18 16:05 09/02/18 16:05 - Medications Medications: Current Medications Apixaban (Eliquis) 5 mg PO Q12 [facility] Last Admin: 09/02/18 10:01 Dose: 5 mg Aspirin (Aspirin Chewable) 81 mg PO DAILY [facility] Last Admin: 09/02/18 10:01 Dose: 81 mg Benzocaine/Menthol (Cepacol Sore Throat) 1 radha MT Q3 PRN PRN Reason: Sore Throat Carvedilol (Coreg) 6.25 mg PO BID [facility] Last Admin: 09/02/18 12:00 Dose: Not Given Folic Acid (Folic Acid) 1 mg PO DAILY [facility] Last Admin: 09/02/18 10:01 Dose: 1 mg Furosemide (Lasix) 40 mg IVP BID [facility] Last Admin: 09/02/18 10:00 Dose: 40 mg Guaifenesin (Robitussin) 200 mg PO Q4H PRN PRN Reason: Cough and congestion Last Admin: 08/29/18 13:57 Dose: 200 mg Ceftriaxone Sodium 1 gm/ (Sodium Chloride) 100 mls @ 100 mls/hr IVPB DAILY [facility]; Protocol Last Admin: 09/02/18 09:56 Dose: 100 mls/hr Lactulose (Enulose) 20 gm PO BID [facility] Last Admin: 09/02/18 10:14 Dose: 20 gm Ondansetron HCl (Zofran Inj) 4 mg IVP Q6H PRN PRN Reason: NAUSEA AND VOMITTING Last Admin: 08/30/18 12:08 Dose: 4 mg Pantoprazole Sodium (Protonix Ec Tab) 40 mg PO DAILY [facility] Last Admin: 09/02/18 10:01 Dose: 40 mg Polyethylene Glycol (Miralax) 17 gm PO DAILY [facility] Last Admin: 09/02/18 10:14 Dose: Not Given Sacubitril/Valsartan (Entresto 24 Mg-26 Mg) 1 tab PO BID [facility] Last Admin: 09/02/18 12:00 Dose: Not Given Zolpidem Tartrate (Ambien) 5 mg PO HS PRN PRN Reason: Insomnia Last Admin: 09/01/18 03:53 Dose: 5 mg - Labs Labs: 09/01/18 07:47 09/01/18 07:47 PT 25.0 SECONDS (9.7-12.2) H 09/01/18 07:47 INR 2.3 09/01/18 07:47 APTT 31.0 SECONDS (21-34) 09/01/18 07:47 Assessment and Plan - Assessment and Plan (Free Text) Assessment: 38 year old male admitted with CHF exacerbation, elevated INR seen and examined.Alert and orientedx3, ambulatory, denies sob or chest pains. Still with edema on both legs. Patient is not qualified to go to rehab as per social group worker. Patient verbalized that he wants to go home. Discussed with DR Welch, advised to follow up with PMD and the cardiologyst in 1 week.All med to be filled from the [facility] pharmacy. Holding statin secondary to elevated LFT'S.
--- NOTE | 2018-09-02 22:04 | CP.PCM.DIS ---
Provider - Provider Date of Admission: 08/28/18 17:05 Attending physician: Aris Rivas MD Consults: 08/27/18 03:59 Gastroenterology Consult Routine Comment: Consulting Provider: Carlos Casey Consulting Physician: Carlos Casey Reason for Consult: [email or web address] 08/27/18 04:02 Cardiology Consult Routine Comment: Consulting Provider: Alfie Mccarty Consulting Physician: Alfie Mccarty Reason for Consult: chf Time Spent in preparation of Discharge (in minutes): 45 Hospital Course - Lab Results Lab Results: Most Recent Lab Values WBC 7.3 K/uL (4.8-10.8) 09/01/18 07:47 RBC 4.52 Mil/uL (4.40-5.90) 09/01/18 07:47 Hgb 11.9 g/dL (12.0-18.0) L 09/01/18 07:47 Hct 35.6 % (35.0-51.0) 09/01/18 07:47 MCV 78.7 fL (80.0-94.0) L 09/01/18 07:47 MCH 26.4 pg (27.0-31.0) L 09/01/18 07:47 MCHC 33.5 g/dL (33.0-37.0) 09/01/18 07:47 RDW 21.3 % (11.5-14.5) H 09/01/18 07:47 Plt Count 421 K/uL (130-400) H 09/01/18 07:47 MPV 7.8 fL (7.2-11.7) 09/01/18 07:47 Neut % (Auto) 67.2 % (50.0-75.0) 09/01/18 07:47 Lymph % (Auto) 16.8 % (20.0-40.0) L 09/01/18 07:47 [place] % (Auto) 9.2 % (0.0-10.0) 09/01/18 07:47 Eos % (Auto) 5.6 % (0.0-4.0) H 09/01/18 07:47 Baso % (Auto) 1.2 % (0.0-2.0) 09/01/18 07:47 Neut # (Auto) 4.9 K/uL (1.8-7.0) 09/01/18 07:47 Lymph # (Auto) 1.2 K/uL (1.0-4.3) 09/01/18 07:47 [place] # (Auto) 0.7 K/uL (0.0-0.8) 09/01/18 07:47 Eos # (Auto) 0.4 K/uL (0.0-0.7) 09/01/18 07:47 Baso # (Auto) 0.1 K/uL (0.0-0.2) 09/01/18 07:47 PT 25.0 SECONDS (9.7-12.2) H 09/01/18 07:47 INR 2.3 09/01/18 07:47 APTT 31.0 SECONDS (21-34) 09/01/18 07:47 Sodium 136 mmol/L (132-148) 09/01/18 07:47 Potassium 3.5 mmol/L (3.6-5.2) L 09/01/18 07:47 Chloride 106 mmol/L (98-107) 09/01/18 07:47 Carbon Dioxide 21 mmol/L (22-30) L 09/01/18 07:47 Anion Gap 12 (10-20) 09/01/18 07:47 BUN 13 mg/dL (9-20) 09/01/18 07:47 Creatinine 1.0 mg/dL (0.8-1.5) 09/01/18 07:47 Est GFR ( Amer) > 60 09/01/18 07:47 Est GFR (Non-Af Amer) > 60 09/01/18 07:47 Random Glucose 104 mg/dL (75-110) 09/01/18 07:47 Calcium 8.6 mg/dl (8.6-10.4) 09/01/18 07:47 Phosphorus 3.2 mg/dL (2.5-4.5) 08/29/18 07:15 Magnesium 2.0 mg/dL (1.6-2.3) 08/29/18 07:15 Total Bilirubin 2.7 mg/dL (0.2-1.3) H 09/01/18 07:47 AST 58 U/L (17-59) 09/01/18 07:47 ALT 59 U/L (21-72) 09/01/18 07:47 Alkaline Phosphatase 93 U/L (38-126) 09/01/18 07:47 Ammonia 13 umol/L (9-33) 09/01/18 07:47 Total Creatine Kinase 57 U/L (55-170) 08/27/18 15:37 CK-MB (Mass) 0.48 ng/mL (0.0-3.38) 08/27/18 15:37 Troponin I < 0.0120 ng/mL (0.00-0.120) 08/27/18 15:37 NT-Pro-B Natriuret Pep 8170 pg/mL (0-450) H 08/26/18 22:40 Total Protein 5.8 g/dL (6.3-8.3) L 09/01/18 07:47 Albumin 2.8 g/dL (3.5-5.0) L 09/01/18 07:47 Globulin 3.0 gm/dL (2.2-3.9) 09/01/18 07:47 Albumin/Globulin Ratio 0.9 (1.0-2.1) L 09/01/18 07:47 Lipase 147 U/L (23-300) 08/26/18 22:40 Alpha Fetoprotein 9.1 ng/mL (0.0-7.5) H 09/01/18 07:47 Carcinoembryonic Ag 3.9 ng/mL (0-3.0) H 09/01/18 07:47 CA 19-9 Antigen 65.5 U/mL (0-37) H 09/01/18 07:47 Urine Color [place] (YELLOW) 08/27/18 06:48 Urine Clarity Clear (Clear) 08/27/18 06:48 Urine pH 5.0 (5.0-8.0) 08/27/18 06:48 Ur Specific [place] 1.055 (1.003-1.030) H 08/27/18 06:48 Urine Protein Negative mg/dL (NEGATIVE) 08/27/18 06:48 Urine Glucose (UA) Normal mg/dL (Normal) 08/27/18 06:48 Urine Ketones Negative mg/dL (NEGATIVE) 08/27/18 06:48 Urine Blood Negative (NEGATIVE) 08/27/18 06:48 Urine Nitrate Negative (NEGATIVE) 08/27/18 06:48 Urine Bilirubin Negative (NEGATIVE) 08/27/18 06:48 Urine Urobilinogen 4.0 mg/dL (0.2-1.0) 08/27/18 06:48 Ur Leukocyte Esterase Neg [place]/uL (Negative) 08/27/18 06:48 Urine WBC (Auto) 1 /hpf (0-5) 08/27/18 06:48 Urine RBC (Auto) 1 /hpf (0-3) 08/27/18 06:48 Ur Squamous Epith Cells 1 /hpf (0-5) 08/27/18 06:48 Discharge Exam - Head Exam Head Exam: ATRAUMATIC, NORMOCEPHALIC Discharge Plan - Discharge Medications Prescriptions: Carvedilol [Coreg] 6.25 mg PO BID #60 tab Apixaban [Eliquis] 5 mg PO Q12 #60 tab Sacubitril/Valsartan [Entresto 24 mg-26 mg] 1 tab PO BID #60 tablet Furosemide [Lasix] 40 mg PO BID #60 tablet Polyethylene Glycol 3350 [Miralax] 17 gm PO DAILY 30 Days packet Pantoprazole [Protonix EC Tab] 40 mg PO DAILY #30 ect - Follow Up Plan Condition: GOOD Disposition: HOME/ ROUTINE Instructions: Heart Failure, Adult (DC), High Blood Pressure (DC), Pulmonary Embolism (Blood Clot in the Lungs) (DC), Fluid Restricted Diet Additional Instructions: follow up with PMD and cardiologyst in 1 week restrict fluids, monitor weight, watch for sob or increased edema, need to go to the doctor activity as tolerated continue to use life vest as instructed
--- NOTE | 2018-09-03 06:45 | DS ---
DISCHARGE DIAGNOSES: 1. Exacerbation of congestive heart failure. 2. Deep venous thrombosis with pulmonary embolism. HISTORY OF PRESENT ILLNESS: This is a 38-year-old male with history of non-ischemic dilated cardiomyopathy with an temperature of 13%, deep venous thrombosis with pulmonary embolism, came in because of abdominal pain, nausea, vomiting. He was found to have gastritis. He was started on Maalox, proton pump inhibitor and he did well. He was continued on his diuretics, Eliquis. The patient is for discharge. CONDITION UPON DISCHARGE: Stable. He is afebrile. PHYSICAL EXAMINATION: VITAL SIGNS: Blood pressure 99/66, pulse 104, respiratory rate 20, temperature 97.7. LUNGS: Bilateral basal rales. CARDIOVASCULAR SYSTEM: S1, S2. Regular. ABDOMEN: Soft. PLAN: Discharge the patient home. Outpatient followup. Aris Rivas MD
--- NOTE | 2018-09-03 07:45 | CP.PCM.PN ---
Subjective - Date & Time of Evaluation Date of Evaluation: 08/31/18 Time of Evaluation: 16:50 - Subjective Subjective: Patient seen and examined. States his breathing improved Objective - Additional Findings Additional findings: - Constitutional Appears: Non-toxic, No Acute Distress - Head Exam Head Exam: ATRAUMATIC, NORMOCEPHALIC - Eye Exam Eye Exam: Normal appearance - ENT Exam ENT Exam: Mucous Membranes Moist - Neck Exam Neck Exam: absent: Lymphadenopathy, Tenderness - Respiratory Exam Respiratory Exam: Clear Breath Sounds, NORMAL BREATHING PATTERN. absent: Accessory Muscle Use, Rhonchi, Wheezes, Respiratory Distress - Cardiovascular Exam Cardiovascular Exam: REGULAR RHYTHM, +S1, +S2 - GI/Abdominal Exam GI & Abdominal Exam: Distended, Soft, Tenderness (mild, diffuse), Normal Bowel Sounds. absent: Firm, Guarding, Rigid - Extremities Exam Extremities Exam: Pedal Edema (2+ pitting b/l). absent: Calf Tenderness - Neurological Exam Neurological Exam: Alert, Awake, Oriented x3 - Psychiatric Exam Psychiatric exam: Normal Affect, Normal Mood - Skin Skin Exam: Dry, Warm Assessment and Plan - Assessment and Plan (Free Text) Plan: Systolic Heart Failure - bi-ventricular failure Nonischemic Cardiomyopathy Paroxysmal Vtach * Consult for AICD placement evaluation (can not be done due to elevated INR) * He has persistently decreased LVEF (first seen on ECHO 08/19/17, EF <15%) * Patient has not been a good candidate for heart transplant or life vest due to non compliance in the past. * Swelling in legs improving Medications: * Aspirin 81 mg PO daily * Eliquis 5 po bid * Coreg 6.25 mg BID * Stopped Lisinopril 5mg PO daily * Start Entresto 24mg-26mg 1 tab PO BID - 1st dose to be given tonight, due to 36 hours waiting period from last dose when switching from ACEi * Lasix 40mg IVP BID Abdominal Pain GI consult management as per GI/Primary Care DISPO: Patient is stable from cardiac standpoint for discharge back to [facility]. Objective - Vital Signs/Intake and Output Vital Signs (last 24 hours): Temp Pulse Resp BP Pulse Ox 97.7 F 104 H 20 99/66 L 98 09/02/18 16:05 09/02/18 16:05 09/02/18 16:05 09/02/18 16:05 06/03/19 16:05 - Labs Labs: 09/01/18 07:47 09/01/18 07:47 PT 25.0 SECONDS (9.7-12.2) H 09/01/18 07:47 INR 2.3 09/01/18 07:47 APTT 31.0 SECONDS (21-34) 09/01/18 07:47
[2018-09-03 23:23] VITALS: O2SAT 97
== END 2018-09-02 17:47 | disposition home or self-care (01) | DRG 544 ==
LOC: C.ER 21:48 → C.9E 08-27 01:03 → C.3T 08-27 14:54 → OBSVTOIN 08-28 17:05 → C.6T 08-29 00:25
PROVIDERS: ADMIT Internal Medicine; ATTEND Internal Medicine
DX: I11.0 Hypertensive heart disease with heart failure (principal); I26.99 Other pulmonary embolism without acute cor pulmonale; N17.0 Acute kidney failure with tubular necrosis; K72.90 Hepatic failure, unspecified without coma; I82.409 Acute embolism and thrombosis of unspecified deep veins of unspecified lower extremity; E87.6 Hypokalemia; E87.1 Hypo-osmolality and hyponatremia; I42.0 Dilated cardiomyopathy; I47.2 Ventricular tachycardia; K29.70 Gastritis, unspecified, without bleeding; I50.23 Acute on chronic systolic (congestive) heart failure; F10.20 Alcohol dependence, uncomplicated; K27.3 Acute peptic ulcer, site unspecified, without hemorrhage or perforation; N14.4 Toxic nephropathy, not elsewhere classified; D63.8 Anemia in other chronic diseases classified elsewhere; Z87.891 Personal history of nicotine dependence; Z95.0 Presence of cardiac pacemaker; Z91.11 Patient's noncompliance with dietary regimen; Z91.14 Patient's other noncompliance with medication regimen